=== PATIENT | male | born 1935 | race Caucasian/White ===

== ENCOUNTER 2021-08-26 00:40 | Emergency (ER) | payer MEDICARE, BC, SELFPAY ==
[2021-08-26 00:49] VITALS: BP 145/80; PULSE 110; TEMP 36.5; O2SAT 92
[2021-08-26 01:00] VITALS: BP 130/79; PULSE 107; RESP 18; O2SAT 92
[2021-08-26 02:00] VITALS: BP 124/70; PULSE 99; RESP 18; O2SAT 93
[2021-08-26 02:59] LABS: INR 3.67 (0.91-1.10); Prothrombin Time 36.7 Seconds
[2021-08-26 03:00] VITALS: BP 143/67; PULSE 97; RESP 18; O2SAT 94
--- NOTE | 2021-08-26 03:18 | ED.GENADULT ---
HPI - General Adult General Date Seen: 08/26/21 Chief complaint: Skin/Abscess/Foreign Body Stated complaint: Bleeding after tooth removal Time Seen by Provider: 08/26/21 00:54 History of Present Illness HPI narrative: 86-year-old male who had an abscessed lower central incisor removed today by an oral surgeon. He is on Coumadin chronically and did not INR last week was 2.4. Apparently they could not wait to remove the tooth and did not do anything to reverse his Coumadin prior to the procedure. He is now about 12 hours out from the extraction and is still bleeding from the site. This is have enough that is running down the back of his throat causing him to cough. He denies tooth pain. He is now on Augmentin as well. Related Data Allergies Allergy/AdvReac Type Severity Reaction Status Date / Time codeine Allergy Unknown Verified 08/26/21 00:[address] [facility] Medical History (Updated 08/26/21 @ 03:52 by Jaylan Alston MD) Asbestosis ASCVD (arteriosclerotic cardiovascular disease) Congestive heart failure COPD (chronic obstructive pulmonary disease) History of prostate cancer Hyperlipidemia Hypertension Insomnia Paroxysmal atrial fibrillation Pneumothorax Presbyacusis Surgical History (Updated 08/26/21 @ 03:52 by Jaylan Alston MD) History of appendectomy History of laparoscopic cholecystectomy Hx of CABG Social History (Updated 08/26/21 @ 03:53 by Jaylan Alston MD) Narrative: , six kids, retired, former smoker Smoking Status: Never smoker Do you use any of these nicotine containing products: None Second hand tobacco smoke exposure: No How often do you have a drink containing alcohol: never How often do you have six or more drinks on one occasion: Never AUDIT-C Alcohol total score: 0 Non-prescribed substance use: denies use service: No Exam Narrative: Exam Narrative: Vitals noted. He has a shirt on that is covered with blood. He is biting on gauze. HEENT: Conjunctiva clear. Tympanic membranes are pearly white bilaterally. Posterior pharynx is clear without erythema or exudate. He is missing a lower central incisor. There is active bleeding coming from the site of the extraction. No bony tenderness. Neck is supple without adenopathy, thyromegaly, carotid bruit. Lungs: Clear to auscultation in all [place]. No wheezes, rales, rhonchi. Heart: Regular rate and rhythm without murmur. Skin: No abnormalities noted of the exposed skin. Neurologic: Awake, alert, fully oriented. Neurologic exam is nonfocal. Const: Vital Signs, click to edit/add: Vital Signs - 24 hr 08/26/21 00:49 08/26/21 01:00 08/26/21 02:00 Temperature 97.7 F Pulse Rate [Left P ulse Oximeter] 110 H 107 H 99 Respiratory Rate 18 18 Blood Pressure [Le ft Upper Arm] 145/80 H 130/79 124/70 Pulse Oximetry 92 92 93 08/26/21 03:00 Temperature Pulse Rate [Left P ulse Oximeter] 97 Respiratory Rate 18 Blood Pressure [Le ft Upper Arm] 143/67 H Pulse Oximetry 94 Documenting provider has reviewed patient's vital signs: yes Course Course Hospital Course: Patient was seen and examined. I ordered hemoglobin and an INR. I initially tried to cauterize the bleeding area with silver nitrate. This helped some but did not resolve the issue. I then cut and applied some Gelfoam to the area in two layers. This did promote hemostasis. He was observed for over an hour and did not have any rebleeding. I did leave a voicemail for his oral surgeon. Reevaluation(s) Reevaluation #1: Hemoglobin is normal but his INR is 3.67. He is given vitamin K 5 mg IM. Vital Signs Vital signs: Initial Vital Signs Temperature 97.7 F 08/26/21 00:49 Temperature Source Temporal Artery Scan 08/26/21 00:49 Pulse Rate 110 H 08/26/21 00:49 Blood Pressure 145/80 H 08/26/21 00:49 Blood Pressure Mean 101 08/26/21 00:49 Blood Pressure Position Sitting 08/26/21 00:49 Pulse Oximetry 92 08/26/21 00:49 Oxygen Delivery Method 08/26/21 00:49 Vital Signs Temperature 97.7 F 08/26/21 00:49 Pulse Rate 110 H 08/26/21 00:49 Blood Pressure 145/80 H 08/26/21 00:49 Pulse Oximetry 92 08/26/21 00:49 Temperature 97.7 F 08/26/21 00:49 Pulse Rate 97 08/26/21 03:00 Respiratory Rate 18 08/26/21 03:00 Blood Pressure 143/67 H 08/26/21 03:00 Pulse Oximetry 94 08/26/21 03:00 Medical Decision Making Lab Data Labs: Lab Results 08/26/21 08/26/21 Range/Units 02:35 02:35 Hgb 16.0 (13.5-17.5) gm/dL INR 3.67 H (0.91-1.10) Discharge Plan Discharge Clinical Impression: Post-op bleeding Patient Disposition: Home, Self-Care Condition: Improved Additional Instructions: Try to leave the Gelfoam in place until you see your surgeon. Follow-up with the surgeon in the morning. Return to the emergency department for uncontrolled bleeding. You should have an INR checked in the clinic in 2-3 days. Follow Up/Referrals: Lee Broderick MD [Primary Care Provider] - Stand Alone Forms: [employer] Info Instructions
== END 2021-08-26 03:52 | disposition home or self-care (01) ==
LOC: ED 03:00
PROVIDERS: Emergency Provider Family Medicine; PCP Family Medicine
DX: Z53.8 Procedure and treatment not carried out for other reasons (principal)
CPT/HCPCS: 99281; 36415; 85018; 85610; 99282; J3430

== ENCOUNTER 2021-08-28 07:28 | Inpatient (IN) | payer MEDICARE, BC, SELFPAY ==
[2021-08-28] VITALS (25 sets, daily range): BP systolic 117–151; BP diastolic 50–88; PULSE 76–97; RESP 16–22; TEMP 35–36.9; O2SAT 90–99; BMI 200.9
--- NOTE | 2021-08-28 08:02 | ED_ITS ---
HPI - Dental/Oral General Time Seen by Provider: 08:02 Date Seen: 08/28/21 Chief complaint: Jaw Injury/Pain Stated complaint: Infection mouth/jaw Time Seen by Provider: 08/28/21 08:00 Source: patient, family (Here with ), RN notes reviewed and old records reviewed (Note from ED visit this week reviewed) Mode of arrival: ambulatory Limitations: no limitations History of Present Illness HPI Narrative: Patient is an 86-year-old male coming in with ongoing dental pain. He states his whole head hurts his jaw hurts. He had a dental extraction emergently on Tuesday and then had to come to the ER for the bleeding to stop. He had been on Coumadin long-term for history of a blood clot in his leg. He did end up getting vitamin can Tuesday. He states his INR was 1.6 yesterday. His notes that he has not been able to eat or drink due to the pain in his mouth. He feels like his tongue is swollen. It maybe lasts so already than when he came in per his report. They have not noted any fevers. He has been on metronidazole 500 mg 4 times a day and amoxicillin as well. He did get 2 bags of IV fluids from his primary care provider and then IV antibiotics and a L of IV fluids yesterday at his follow-up with the oral surgeon. Really seems if it is a pain complaint. He did have oxycodone for pain but did not like how it made him feel. He finally took 1 overnight due to the pain. His notes he has really only had 1 can of ensure other than the IV fluids. Onset (ago): day(s) Duration: constant Severity: severe Relieving factors: prescription analgesics Exacerbating factors: other (Eating, drinking) Associated symptoms: tongue swelling and pain with swallowing Related Data Allergies Allergy/AdvReac Type Severity Reaction Status Date / Time codeine Allergy Unknown Verified 08/26/21 00:52 Review of Systems Status of ROS: Reports: 10 or more systems reviewed and unremarkable except as noted in History and below [facility] Medical History Asbestosis ASCVD (arteriosclerotic cardiovascular disease) Congestive heart failure COPD (chronic obstructive pulmonary disease) History of prostate cancer Hyperlipidemia Hypertension Insomnia Paroxysmal atrial fibrillation Pneumothorax Presbyacusis Surgical History History of appendectomy History of laparoscopic cholecystectomy Hx of CABG Social History Narrative: , six kids, retired, former smoker Smoking Status: Never smoker Do you use any of these nicotine containing products: None Second hand tobacco smoke exposure: No How often do you have a drink containing alcohol: never How often do you have six or more drinks on one occasion: Never AUDIT-C Alcohol total score: 0 Non-prescribed substance use: denies use service: No Exam Const: Vital Signs, click to edit/add: Vital Signs - 24 hr 08/28/21 07:36 08/28/21 08:15 08/28/21 08:50 Temperature 98.3 F Pulse Rate [Pulse Oximeter] 92 76 Respiratory Rate 16 18 Respiratory Rate [ Neck] 18 Blood Pressure [Le ft Upper Arm] 128/76 150/77 H Pulse Oximetry 93 92 99 08/28/21 09:34 Temperature Pulse Rate [Pulse Oximeter] 85 Respiratory Rate 18 Respiratory Rate [ Neck] Blood Pressure [Le ft Upper Arm] 118/80 Pulse Oximetry 99 Documenting provider has reviewed patient's vital signs: yes Common normals: no apparent distress, average body habitus, oriented x3, no limitations, healthy appearing and alert General appearance: cooperative Nutritional appearance: overweight Orientation/consciousness: Yes awake HENMT: Common normals: normocephalic, head/scalp atraumatic, hearing grossly normal bilaterally, external ears normal, external nose normal and nasal mucous membranes and turbinates normal Head and scalp: normocephalic and atraumatic Nose: external nose normal and nasal mucous membranes and turbinates normal External ear: external ears normal Other: Has difficulty opening his mouth but submentally you can see extensive swelling without any evidence of any erythema. It feels like there is dense swelling in the underlying tissue under his job. He has pain with palpation there, there is no fluctuance, no heat. He can open his mouth but is limited due to this pain in the lower jaw. There is no active bleeding. The tongue actually has no swelling at all but underneath the tongue there is swelling that is present to the floor up by the anterior alveolar ridge. I think he is sent seen the swelling at the base of the jaw as tongue swelling. Posterior oropharynx is without any swelling. He definitely has pain with manipulation an opening of the jaw. Is not drooling, seems to be managing his secretions fine. Eye: Common normals: PERRL, EOMs intact bilaterally, conjunctivae normal and n o scleral icterus Conjunctiva: conjunctiva(e) normal Pupil: PERRL Neck & C-Spine: Common normals: full ROM, no lymphadenopathy, supple, no meningeal signs, no JVD and thyroid normal General: trachea midline, anterior neck swelling (Up under the jaw in the submental area) and tenderness Thyroid: thyroid normal Lymph: Lymphatic: no lymphadenopathy noted Resp: Common normals: normal respiratory effort, no retractions, no use of accessory muscles and clear to auscultation bilaterally Auscultation: clear to auscultation bilaterally Cardio: Common normals: no JVD, regular rate, regular rhythm, S1 normal heart sound, S2 normal heart sound, no gallops, no clicks and no murmurs Rate: regular rate Rhythm: regular rhythm Heart sounds: S1 normal and S2 normal GI: Common normals: Normal to inspection, nondistended, normoactive bowel sounds present, soft to palpation, non-tender, no hepatosplenomegaly and no masses Palpation: soft and no hepatosplenomegaly Extremity: Common normals: normal to inspection, full ROM, normal capillary refill, no joint enlargement, no clubbing, cyanosis or edema, no calf tenderness and no pedal edema Neuro: Common normals: oriented x3 Sensorium/orientation: awake and alert Meningeal signs: no meningeal signs Course Course Hospital Course: Will need to obtain soft tissue neck CT to better identify the process in his superior anterior submental area/neck. I suspect this might be generalized swelling and tissue changes from bleeding from being on Coumadin. It is possible it could be infectious in etiology and will get supporting lab work besides the imaging. There does not seem to be an airway issue at this time. We will give him some IV fluids and see what we can do to help the process of pain management. He may need hospitalization and supportive cares and tell there is better control of his pain and his ability for oral intake. He is stating his pain is still severe and will try a some low-dose IV fentanyl for him, give him some Zofran to cover for nausea from potential narcotic use. Have ordered oxygen if needed if he should become mildly hypoxic with the IV narcotic use. Will be doing a screening COVID as I do see that there was a significant chance he might need hospitalization. Consultations Consultation #1: Spoke with Dr. Bangura who is in the OR doing cases. Was able to catch in between OR cases. He did review the CT scan with me and felt the patient would be best served being transferred. Did review with me that this infection can become a extensive and be concerning for airway compromise. We will initiate IV antibiotics and dexamethasone as reviewed with Dr. Bangura. I have subsequently ordered 4 mg IV dexamethasone as this patient does have a history of CHF, the dexamethasone can be given in incremental doses. I have ordered Zosyn 3.375 mg IV. We will look to transfer the patient. Time: 10:35 Consultation #2: Dr. Bangura is here seeing the patient. We unfortunately are unable to transfer the patient anywhere within the [facility] to a higher level of care, nor to [place]. We have contacted [facility], [facility], [facility], [place], [facility]. We contacted [facility] in [place] and he is on a wait list at . Which will not be likely to be admitted within the next 24 hours. Thus, Dr. Bangura is essentially forced to take care of this case here and the patient is likely to remain intubated afterwards. Time: 11:27 Vital Signs Vital signs: Initial Vital Signs Temperature 98.3 F 08/28/21 07:36 Temperature Source Temporal Artery Scan 08/28/21 07:36 Pulse Rate 92 08/28/21 07:36 Respiratory Rate 16 08/28/21 07:36 Blood Pressure 128/76 08/28/21 07:36 Blood Pressure Mean 93 08/28/21 07:36 Pulse Oximetry 93 08/28/21 07:36 Oxygen Delivery Method 08/28/21 07:36 Vital Signs Temperature 98.3 F 08/28/21 07:36 Pulse Rate 92 08/28/21 07:36 Respiratory Rate 16 08/28/21 07:36 Blood Pressure 128/76 08/28/21 07:36 Pulse Oximetry 93 08/28/21 07:36 Temperature 98.3 F 08/28/21 07:36 Pulse Rate 85 08/28/21 09:34 Respiratory Rate 18 08/28/21 09:34 Blood Pressure 118/80 08/28/21 09:34 Pulse Oximetry 99 08/28/21 09:34 MDM - Dental/Oral Lab Data Attestation: I reviewed the patient's lab results. Labs: Lab Results 08/28/21 08/28/21 08/28/21 Range/Units 08:15 08:15 08:15 WBC 9.60 (4.50-11.00) K/uL RBC 4.26 L (4.30-5.90) m/uL Hgb 13.5 (13.5-17.5) gm/dL Hct 40.7 (37.0-53.0) % MCV 96 (80-100) fL MCH 32 (26-34) pg MCHC 33 (32-36) gm/dL RDW Coeff of Betty 12.7 (11.5-15.5) % Plt Count 173 (140-440) K/uL Neut % (Auto) 72.9 H (42.0-72.0) % Lymph % (Auto) 12.5 L (20-44) % Baca % (Auto) 13.3 H (0.0-11.0) % Eos % (Auto) 0.6 (0.0-7.0) % Baso % (Auto) 0.3 (0.0-3.0) % Neut # (Auto) 7.00 (1.7-7.0) K/uL Lymph # (Auto) 1.20 (0.90-2.90) K/uL Baca # (Auto) 1.30 H (0.00-0.90) K/UL Eos # (Auto) 0.06 (0.00-0.50) K/uL Baso # (Auto) 0.03 (0.00-0.30) K/uL Abs Immat Gran (auto) 0.04 (0.00-0.30) K/uL INR (0.91-1.10) Sodium 138 (135-149) mmol/L Potassium 3.3 L (3.6-5.1) mmol/L Chloride 103 (96-114) mmol/L Carbon Dioxide 32 (20-32) mmol/L BUN 25 (7-30) mg/dL Creatinine 0.9 (0.5-1.5) mg/dL Estimated Creat Clear 75.19 Estimated GFR 84 ml/min Glucose 115 (60-115) mg/dL Lactate 1.0 (0.5-1.9) mmol/L Calcium 8.1 L (8.4-10.6) mg/dL C-Reactive Protein 16.6 H (0.5-1.0) mg/dL SARS-CoV-2 (PCR) (Negative) 08/28/21 08/28/21 Range/Units 08:15 08:23 WBC (4.50-11.00) K/uL RBC (4.30-5.90) m/uL Hgb (13.5-17.5) gm/dL Hct (37.0-53.0) % MCV (80-100) fL MCH (26-34) pg MCHC (32-36) gm/dL RDW Coeff of Betty (11.5-15.5) % Plt Count (140-440) K/uL Neut % (Auto) (42.0-72.0) % Lymph % (Auto) (20-44) % Baca % (Auto) (0.0-11.0) % Eos % (Auto) (0.0-7.0) % Baso % (Auto) (0.0-3.0) % Neut # (Auto) (1.7-7.0) K/uL Lymph # (Auto) (0.90-2.90) K/uL Baca # (Auto) (0.00-0.90) K/UL Eos # (Auto) (0.00-0.50) K/uL Baso # (Auto) (0.00-0.30) K/uL Abs Immat Gran (auto) (0.00-0.30) K/uL INR 1.19 H (0.91-1.10) Sodium (135-149) mmol/L Potassium (3.6-5.1) mmol/L Chloride (96-114) mmol/L Carbon Dioxide (20-32) mmol/L BUN (7-30) mg/dL Creatinine (0.5-1.5) mg/dL Estimated Creat Clear Estimated GFR ml/min Glucose (60-115) mg/dL Lactate (0.5-1.9) mmol/L Calcium (8.4-10.6) mg/dL C-Reactive Protein (0.5-1.0) mg/dL SARS-CoV-2 (PCR) Negative SARS-CoV-2 (Negative) Imaging Data CT soft tissue neck with IV contrast: Attestation: I have reviewed the pertinent imaging results. Radiologist's impression: Patient: AUTUMN MILAN Facility:?[facility] Patient ID:?[id number] Site Patient ID:?[id number]. Site :?[id number] Study:?CT ST Neck 99cc ISOVUE 370-08/28/2021 9:43:01 AM Ordering Physician:Danny Olivarez Final Report: INDICATION: TOOTH EXTRACTION 1 WEEK AGO PAIN AND SWELLING TECHNIQUE: CT soft tissue of the neck was acquired with IV 99 cc Isovue 370 contrast. COMPARISON: None. FINDINGS: Dental amalgam streak artifact limits evaluation of adjacent structures. Rim enhancing fluid collection in the right floor of the mouth extending towards the midline, measuring 2.1 x 1.0 by 1.1 cm. (Series 3, image 40 and series 7, image 5) Skull base: Unremarkable. Pharynx/Larynx/Trachea: Epiglottis is normal. Airway is patent. Adjacent soft tissues are normal. Salivary glands: Unremarkable. Thyroid gland: Unremarkable. No significant nodules. Lymph nodes: No lymphadenopathy. Vessels: Moderate the scleroses of the carotid bifurcations and thoracic aorta. Bones: Moderate degenerative changes cervical spine most notably at C5-C6. Lung apices: Scarring at the right lung apex. Mild mucosal thickening in the right maxillary sinus. Visualized esophagus is patulous and partially fluid filled. IMPRESSION: : Rim enhancing fluid collection in the right floor of the mouth extending towards the midline, measuring 2.1 x 1.0 by 1.1 cm. Findings suspicious for an abscess. However, it should be noted that this is in the region and course of the right submandibular gland duct and this may relate to an infected/inflamed duct. Please note that all CT scans at this facility use dose modulation, iterative reconstruction, and/or weight-based dosing when appropriate to reduce radiation dose to as low as reasonably achievable. Dictated by Braden Castillo MD @ 08/28/2021 10:02:35 AM (Electronic Signature) Chest x-ray: Attestation: I have reviewed the pertinent imaging results. Radiologist's impression: Patient: AUTUMN MILAN Facility:?[facility] Patient ID:?[id number] Site Patient ID:?[id number]. Site :?[id number] Study:?XRay Chest -08/28/2021 11:56:43 AM Ordering Physician:Danny Olivarez Final Report: INDICATION: INFECTION S/P TOOTH EXTRACTION X 1 WEEK AGO, HX OF COPD, CHF TECHNIQUE: Chest 2 views. COMPARISON: October 26, 2020 FINDINGS: The lungs are hypoinflated. The heart is enlarged with bronchovascular crowding and interstitial thickening. No pleural effusion. No visualized pneumothorax. Unremarkable bones. IMPRESSION: Cardiac enlargement and bronchovascular crowding with interstitial thickening which may relate to low lung volumes or developing mild pulmonary edema. Dictated by Braden Castillo MD @ 08/28/2021 12:08:33 PM (Electronic Signature) ECG Data Attestation: I personally reviewed and interpreted this ECG as follows: (Sinus rhythm, 81 beats per minute, no acute abnormality.) ECG interpretation date: 08/28/21 ECG interpretation time: 11:56 Core Measures Measure exclusions: not indicated Critical Care Time Critical Care Time Critical Care Time: No Discharge Plan Discharge Patient Disposition: Admitted As Inpatient Condition: Unchanged
--- NOTE | 2021-08-28 08:22 | CRLHL7_ITS ---
For Patients: As a result of the Century Cures Act, medical imaging exams and procedure reports are released immediately into your electronic medical record. You may view this report before your referring provider. If you have questions, please contact your health care provider. INDICATION: TOOTH EXTRACTION 1 WEEK AGO PAIN AND SWELLING TECHNIQUE: CT soft tissue of the neck was acquired with IV 99 cc Isovue 370 contrast. COMPARISON: None. FINDINGS: Dental amalgam streak artifact limits evaluation of adjacent structures. Rim enhancing fluid collection in the right floor of the mouth extending towards the midline, measuring 2.1 x 1.0 by 1.1 cm. (Series 3, image 40 and series 7, image 5) Skull base: Unremarkable. Pharynx/Larynx/Trachea: Epiglottis is normal. Airway is patent. Adjacent soft tissues are normal. Salivary glands: Unremarkable. Thyroid gland: Unremarkable. No significant nodules. Lymph nodes: No lymphadenopathy. Vessels: Moderate the scleroses of the carotid bifurcations and thoracic aorta. Bones: Moderate degenerative changes cervical spine most notably at C5-C6. Lung apices: Scarring at the right lung apex. Mild mucosal thickening in the right maxillary sinus. Visualized esophagus is patulous and partially fluid filled. IMPRESSION: : Rim enhancing fluid collection in the right floor of the mouth extending towards the midline, measuring 2.1 x 1.0 by 1.1 cm. Findings suspicious for an abscess. However, it should be noted that this is in the region and course of the right submandibular gland duct and this may relate to an infected/inflamed duct. Please note that all CT scans at this facility use dose modulation, iterative reconstruction, and/or weight-based dosing when appropriate to reduce radiation dose to as low as reasonably achievable. Dictated by Braden Castillo MD @ 08/28/2021 10:02:35 AM (Electronically Signed)
[2021-08-28 08:37] LABS: Basophils Absolute Auto 0.03 K/uL (0.00-0.30); Basophils Percent Auto 0.3 % (0.0-3.0); Eosinophils Absolute Auto 0.06 K/uL (0.00-0.50); Eosinophils Percent Auto 0.6 % (0.0-7.0); Hematocrit 40.7 % (37.0-53.0); Hemoglobin* 13.5 gm/dL (13.5-17.5); Immature Granulocytes Abs Auto 0.04 K/uL (0.00-0.30); Lymphocytes Percent Auto 12.5 % (20-44); Mean Corpuscular HGB Conc 33 gm/dL (32-36); Mean Corpuscular Hemoglobin 32 pg (26-34); Mean Corpuscular Volume 96 fL (80-100); Monocytes Percent Auto 13.3 % (0.0-11.0); Neutrophils Percent Auto 72.9 % (42.0-72.0); Platelet Count* 173 K/uL (140-440); RDW Coefficient of Variation % 12.7 % (11.5-15.5); Red Blood Count 4.26 m/uL (4.30-5.90)
[2021-08-28 08:39] LABS: Slide Review Reflex No
[2021-08-28] MEDS: 0.9 % SODIUM CHLORIDE 500 ML 500 ML IV ×2 (08:40→09:35)
[2021-08-28 08:49] LABS: Chloride* 103 mmol/L (96-114)
[2021-08-28] MEDS: ONDANSETRON 2 MG/ML inj 4 MG IVP (08:49)
[2021-08-28 08:50] LABS: Potassium* 3.3 mmol/L (3.6-5.1); Sodium* 138 mmol/L (135-149)
[2021-08-28 08:51] LABS: INR 1.19 (0.91-1.10); Prothrombin Time 15.5 Seconds
[2021-08-28] MEDS: fentaNYL 100 MCG/2 ML inj 25 MCG IVP ×2 (08:51→11:11)
[2021-08-28 08:52] LABS: Creatinine* 0.9 mg/dL (0.5-1.5); Est. Creatinine Clearance* 75.19; Estimated Glomerular Filt Rate 84 ml/min
[2021-08-28 08:53] LABS: Blood Urea Nitrogen* 25 mg/dL (7-30); Carbon Dioxide* 32 mmol/L (20-32)
[2021-08-28 08:54] LABS: Calcium* 8.1 mg/dL (8.4-10.6); Glucose* 115 mg/dL (60-115)
[2021-08-28 09:07] LABS: C Reactive Protein* 16.6 mg/dL (0.5-1.0)
--- NOTE | 2021-08-28 09:31 | PC.NURSE ---
back from imaging, fluids infusing
[2021-08-28 09:48] LABS: SARS PCR* Negative SARS-CoV-2 (Negative)
--- NOTE | 2021-08-28 10:04 | PC.NURSE ---
pt up to bathroom with standby assist, voided, noted dark urine, fluids infusing
[2021-08-28] MEDS: dexAMETHasone 4 MG/ML VIAL IV (11:13)
[2021-08-28] MEDS: PIPERACILLIN/TAZOBACTAM 3.375 GM in 0.9 % SODIUM CHLORIDE Mini-bag 100 ML IVPB ×2 (11:17→18:55)
--- NOTE | 2021-08-28 11:26 | CRLHL7_ITS ---
For Patients: As a result of the Cures Act, medical imaging exams and procedure reports are released immediately into your electronic medical record. You may view this report before your referring provider. If you have questions, please contact your health care provider. INDICATION: INFECTION S/P TOOTH EXTRACTION X 1 WEEK AGO, HX OF COPD, CHF TECHNIQUE: Chest 2 views. COMPARISON: October 26, 2020 FINDINGS: The lungs are hypoinflated. The heart is enlarged with bronchovascular crowding and interstitial thickening. No pleural effusion. No visualized pneumothorax. Unremarkable bones. IMPRESSION: Cardiac enlargement and bronchovascular crowding with interstitial thickening which may relate to low lung volumes or developing mild pulmonary edema. Dictated by Braden Castillo MD @ 08/28/2021 12:08:33 PM (Electronically Signed)
--- NOTE | 2021-08-28 12:05 | W.ANESCHARGE ---
Anesthesia Charges Start Date/Time Anesthesia Start Date: 08/28/21 Anesthesia Start Time: 11:33 Stop Date/Time Anesthesia Stop Date: 08/28/21 Anesthesia Stop Time: 12:05 Summary Emergency: No Extremes of Age: Over 71-CPT 77161
--- NOTE | 2021-08-28 13:10 | P.ENTCN_ITS ---
HPI- ENT Consult Date of Consult Consult date: 09/01/21 Requesting Physician: Other Primary Care Provider: Lee Broderick MD Consult Narrative Reason for consult: Submental abscess Narrative: Peña Reddy is a 86 year old male Review of Systems Narrative: Reviewed Dr. Geena escobar note pertinent for me would be poor dentition, history of cardiac stent, history of lung surgery x2. PFSH PFSH Medical History (Updated 08/31/21 @ 10:52 by Malik Hernandez MD) Anticoagulant long-term use Asbestosis ASCVD (arteriosclerotic cardiovascular disease) Congestive heart failure COPD (chronic obstructive pulmonary disease) History of prostate cancer Hyperlipidemia Hypertension Insomnia Neck abscess Paroxysmal atrial fibrillation Pneumothorax Presbyacusis Sublingual abscess Trouble swallowing Surgical History History of appendectomy History of laparoscopic cholecystectomy Hx of CABG Social History Narrative: , six kids, retired, former smoker Smoking Status: Never smoker Do you use any of these nicotine containing products: None Second hand tobacco smoke exposure: No How often do you have a drink containing alcohol: never How often do you have six or more drinks on one occasion: Never AUDIT-C Alcohol total score: 0 Non-prescribed substance use: denies use service: No Meds Home Medications and Allergies Home Medications Medication Instructions Recorded Confirmed Type amoxicillin 500 mg capsule 500 mg PO QID 08/28/21 08/28/21 History atorvastatin 40 mg tablet 40 mg PO HS 08/28/21 08/28/21 History fluticasone 113 mcg-salmeterol 14 1 inh INHALATION BID 08/28/21 08/28/21 History mcg/actuation breath activated powdr hydrocodone 5 mg-acetaminophen 325 1 tab PO Q6H PRN 08/28/21 08/28/21 History mg tablet lisinopril 20 mg tablet 20 mg PO DAILY 08/28/21 08/28/21 History metoprolol succinate 50 mg 75 mg PO DAILY 08/28/21 08/28/21 History tablet,extended release 24 hr metronidazole 500 mg tablet 500 mg PO QID 08/28/21 08/28/21 History mirtazapine 7.5 mg tablet 7.5 mg PO HS 08/28/21 08/28/21 History omeprazole 20 mg capsule,delayed 20 mg PO DAILY 08/28/21 08/28/21 History release tamsulosin 0.4 mg capsule 0.8 mg PO DAILY 08/28/21 08/28/21 History triamterene 37.5 1 cap PO DAILY 08/28/21 08/28/21 History mg-hydrochlorothiazide 25 mg capsule warfarin 2 mg tablet 4 - 6 mg PO DAILY 08/28/21 08/28/21 History Allergies Allergy/AdvReac Type Severity Reaction Status Date / Time codeine Allergy Unknown Verified 08/26/21 00:52 Exam Narrative: Exam Narrative: General skin neuro respiratory gait peripheral vascular vocal quality respirator y effort skin of head and neck negative ear external canal TM negative nose mucosa septum turbinates negative oral cavity oropharynx hypopharynx larynx neck parotid thyroid all negative with the exception of: Submental swelling, floor of mouth swelling with apparent hematoma in the submandibular duct orifices. No fluctuant abscess in mouth. Extremely poor dentition. Const: Vital Signs, click to edit/add: Vital Signs - 24 hr 08/28/21 07:36 08/28/21 08:15 08/28/21 08:50 Temperature 98.3 F Pulse Rate [Pulse Oximeter] 92 76 Respiratory Rate 16 18 Respiratory Rate [ Neck] 18 Blood Pressure [Le ft Upper Arm] 128/76 150/77 H Pulse Oximetry 93 92 99 08/28/21 09:34 Temperature Pulse Rate [Pulse Oximeter] 85 Respiratory Rate 18 Respiratory Rate [ Neck] Blood Pressure [Le ft Upper Arm] 118/80 Pulse Oximetry 99 ENT-CN: Result Labs Labs: Short CBC 08/28/21 Range/Units 08:15 WBC 9.60 (4.50-11.00) K/uL Hgb 13.5 (13.5-17.5) gm/dL Hct 40.7 (37.0-53.0) % Plt Count 173 (140-440) K/uL BMP 08/28/21 08:15 Sodium 138 Potassium 3.3 L Chloride 103 Carbon Dioxide 32 BUN 25 Creatinine 0.9 Glucose 115 Calcium 8.1 L Assessment and Plan Assessment and plan (1) Neck abscess: Status: Acute (2) Anticoagulant long-term use: Status: Acute (3) COPD (chronic obstructive pulmonary disease): Status: Acute (4) Paroxysmal atrial fibrillation: Status: Acute (5) ASCVD (arteriosclerotic cardiovascular disease): Status: Acute (6) Sublingual abscess: Problem comment: Status post I&D Status: Acute (7) Hypoxia: Status: Acute (8) Electrolyte and fluid disorder: Status: Acute (9) Trouble swallowing: Status: Acute (10) Hypertension: Status: Acute (11) Debility: Status: Acute (12) Malnutrition: Status: Acute
--- NOTE | 2021-08-28 13:15 | W.PM.ENTCN ---
HPI- ENT Consult Date of Consult Consult date: 08/28/21 Primary Care Provider: Lee Broderick MD Consult Narrative Narrative: Peña Reddy is a 86 year old male [facility] Medical History (Updated 08/28/21 @ 13:16 by Rowdy Bangura MD) Asbestosis ASCVD (arteriosclerotic cardiovascular disease) Congestive heart failure COPD (chronic obstructive pulmonary disease) History of prostate cancer Hyperlipidemia Hypertension Insomnia Neck abscess Paroxysmal atrial fibrillation Pneumothorax Presbyacusis Surgical History History of appendectomy History of laparoscopic cholecystectomy Hx of CABG Social History Narrative: , six kids, retired, former smoker Smoking Status: Never smoker Do you use any of these nicotine containing products: None Second hand tobacco smoke exposure: No How often do you have a drink containing alcohol: never How often do you have six or more drinks on one occasion: Never AUDIT-C Alcohol total score: 0 Non-prescribed substance use: denies use service: No Meds Home Medications and Allergies Allergies Allergy/AdvReac Type Severity Reaction Status Date / Time codeine Allergy Unknown Verified 08/26/21 00:52 Exam Const: Vital Signs, click to edit/add: Vital Signs - 24 hr 08/28/21 07:36 08/28/21 08:15 08/28/21 08:50 Temperature 98.3 F Pulse Rate [Pulse Oximeter] 92 76 Respiratory Rate 16 18 Respiratory Rate [ Neck] 18 Blood Pressure [Le ft Upper Arm] 128/76 150/77 H Pulse Oximetry 93 92 99 08/28/21 09:34 Temperature Pulse Rate [Pulse Oximeter] 85 Respiratory Rate 18 Respiratory Rate [ Neck] Blood Pressure [Le ft Upper Arm] 118/80 Pulse Oximetry 99 ENT-CN: Result Labs Labs: Short CBC 08/28/21 Range/Units 08:15 WBC 9.60 (4.50-11.00) K/uL Hgb 13.5 (13.5-17.5) gm/dL Hct 40.7 (37.0-53.0) % Plt Count 173 (140-440) K/uL BMP 08/28/21 08:15 Sodium 138 Potassium 3.3 L Chloride 103 Carbon Dioxide 32 BUN 25 Creatinine 0.9 Glucose 115 Calcium 8.1 L Assessment and Plan Assessment and plan (1) Neck abscess: Status: Acute Plan CT scan reviewed including images. Small right greater than left submental abscess. Impression submental abscess left greater than right with tenderness extending down to just above the larynx on both sides. Recommend incision and drainage risks including anesthesia bleeding failure to achieve desired results etc. as well as scarring were discussed with him and his . He understands and wishes to proceed Note to ER physician's note note was reviewed which includes past medical history family history social history review of systems
--- NOTE | 2021-08-28 13:16 | P.ENTPROC_ITS ---
Procedure Note Date of procedure: 08/28/21 Procedure: Preoperative diagnosis submental abscess following dental extraction Postop diagnosis same Findings moderately extensive abscess in majority of the submental space both right and left-sided Blood loss less than 20 mL Complications none Drains 2 [place] drain secured to the scan The patient was intubated without difficulty and then prepped and draped in the usual fashion. I 1st examined the floor mouth and there was a small cavity on the right just posterior to the floor of mouth gingival junction this was opened with a 15 blade puncture. There was minimal to no fluid there. After regarding attention was returned to the external neck. The skin incision was marked in the submental area horizontally injected with 1% lidocaine 1- [id number] adrenaline, then the skin was incised with a Doyline blade. Electrocautery was used to cauterize any bleeding vessels. The strap muscles were divided retracted laterally. This point was easily able to enter the submental space just with fingertip dissection. There was an obvious abscess cavity which was filled with serosanguineous fluid the abscess cavity appeared to extend to on both sides of the submental space approximately 8 cm inward on each side. All adhesions were broken up digitally. The wound was copiously irrigated with normal saline. Two [place] drains were secured to the skin and placed in the deepest portion of the cavity. An external dressing consisting of fluffs and Kerlix wrap was placed. The patient tolerated procedure well and was taken to recovery in satisfactory condition after extubation. Surgeon: Rowdy Bangura MD
--- NOTE | 2021-08-28 13:23 | W.ANESCHARGE ---
Anesthesia Charges Start Date/Time Anesthesia Start Date: 08/28/21 Anesthesia Start Time: 12:35 Stop Date/Time Anesthesia Stop Date: 08/28/21 Anesthesia Stop Time: 13:23 Summary Emergency: Yes Extremes of Age: Over 70-CPT 85188
[2021-08-28] MEDS: LACTATED RINGERS 1000 ML 1,000 ML 35 ML IV (13:30)
--- NOTE | 2021-08-28 13:38 | SUR.OPER ---
PATIENT QUESTIONS ANSWERED SATISFACTORILY PREOPERATIVELY.? PATIENT BROUGHT TO OR RM #4 BY WHEELCHAIR.? Patient positioned supine on OR #4 bed. ?Perioperative team tucked arms bilaterally at patient side with drawsheet in a neutral position. ?Final approval of positioning by surgeon.
--- NOTE | 2021-08-28 13:43 | SUR.OPER ---
IRRIGATED INFECTED INCISION ON THE NECK WITH NS POUR WITH 100cc BY Millie AT13:02.
--- NOTE | 2021-08-28 14:00 | W.ANESCHARGE ---
Anesthesia Charges Start Date/Time Anesthesia Start Date: 08/28/21 Anesthesia Start Time: 12:35 Stop Date/Time Anesthesia Stop Date: 08/28/21 Anesthesia Stop Time: 13:23 Summary Emergency: Yes Extremes of Age: Over 71-CPT 58866
--- NOTE | 2021-08-28 14:46 | P.IMHP_ITS ---
Hospitalist- H&P: HPI History of Present Illness Time Seen by Provider: 14:47 Date Seen: 08/28/21 Chief complaint: Infection mouth/jaw Narrative: Peña Reddy is a 86 year old male presented to the emergency room today for persistent dental pain and difficulty with po intake. He had an abscessed tooth pulled on 08/25, has had persistent pain and edema since procedure. Secondary to pain, has been unable to eat well. He presented to the ED today with the following findings: - INR 1.19 (has been holding Warfarin since 08/26, received Vitamin K x1 on 08/26) - CT of neck exhibited a 2.1 x1.1cm abscess on floor of the mouth (R side) Patient had surgery with Dr. Bangura of ENT; reviewed the case with Dr. Bangura of postoperatively. There were no operative or anesthetic complications during the I&D and drain placement. Patient's medical history includes recurrent spontaneous pneumothorax s/p bilateral pleurodesis in 1984 and 2002. He has known restrictive lung disease and follows with Dr. Osullivan at the [facility]. He also has a history of prostate cancer, CAD s/p JANEY to RCA in 2019, atrial fibrillation, remote history of DVT, anticoagulated on Warfarin. Other past medical and surgical history noted below. Lives independently with locally. 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 Review of Systems Status of ROS: Reports: 10 or more systems reviewed and unremarkable except as noted in History and below Narrative: Specifically denies chest pain or dyspnea. Worried about nutritional status, and these not been able to eat or drink much over the past few days. PFSH [facility] Medical History Anticoagulant long-term use Asbestosis ASCVD (arteriosclerotic cardiovascular disease) Congestive heart failure COPD (chronic obstructive pulmonary disease) History of prostate cancer Hyperlipidemia Hypertension Insomnia Neck abscess Paroxysmal atrial fibrillation Pneumothorax Presbyacusis Surgical History History of appendectomy History of laparoscopic cholecystectomy Hx of CABG Social History Narrative: , six kids, retired, former smoker Smoking Status: Never smoker Do you use any of these nicotine containing products: None Second hand tobacco smoke exposure: No How often do you have a drink containing alcohol: never How often do you have six or more drinks on one occasion: Never AUDIT-C Alcohol total score: 0 Non-prescribed substance use: denies use service: No Active Problems Anticoagulant long-term use (Acute) Z79.01 Neck abscess (Acute) L02.11 COPD (chronic obstructive pulmonary disease) (Acute) J44.9 Asbestosis (Acute) J61 History of prostate cancer (Acute) Z85.46 Insomnia (Acute) G47.00 Paroxysmal atrial fibrillation (Acute) I48.0 Congestive heart failure (Acute) I50.9 Hyperlipidemia (Acute) E78.5 Presbyacusis (Acute) H91.10 Hypertension (Acute) I10 ASCVD (arteriosclerotic cardiovascular disease) (Acute) I25.10 Post-op bleeding (Acute) Medical History Anticoagulant long-term use Asbestosis ASCVD (arteriosclerotic cardiovascular disease) Congestive heart failure COPD (chronic obstructive pulmonary disease) History of prostate cancer Hyperlipidemia Hypertension Insomnia Neck abscess Paroxysmal atrial fibrillation Pneumothorax Presbyacusis Surgical History History of appendectomy History of laparoscopic cholecystectomy Hx of CABG Social History Narrative: , six kids, retired, former smoker Smoking Status: Never smoker Do you use any of these nicotine containing products: None Second hand tobacco smoke exposure: No How often do you have a drink containing alcohol: never How often do you have six or more drinks on one occasion: Never AUDIT-C Alcohol total score: 0 Non-prescribed substance use: denies use service: No Active Problems Anticoagulant long-term use (Acute) Z79.01 Neck abscess (Acute) L02.11 COPD (chronic obstructive pulmonary disease) (Acute) J44.9 Asbestosis (Acute) J61 History of prostate cancer (Acute) Z85.46 Insomnia (Acute) G47.00 Paroxysmal atrial fibrillation (Acute) I48.0 Congestive heart failure (Acute) I50.9 Hyperlipidemia (Acute) E78.5 Presbyacusis (Acute) H91.10 Hypertension (Acute) I10 ASCVD (arteriosclerotic cardiovascular disease) (Acute) I25.10 Post-op bleeding (Acute) Medical History Anticoagulant long-term use Asbestosis ASCVD (arteriosclerotic cardiovascular disease) Congestive heart failure COPD (chronic obstructive pulmonary disease) History of prostate cancer Hyperlipidemia Hypertension Insomnia Neck abscess Paroxysmal atrial fibrillation Pneumothorax Presbyacusis Surgical History History of appendectomy History of laparoscopic cholecystectomy Hx of CABG Social History Narrative: , six kids, retired, former smoker Smoking Status: Never smoker Do you use any of these nicotine containing products: None Second hand tobacco smoke exposure: No How often do you have a drink containing alcohol: never How often do you have six or more drinks on one occasion: Never AUDIT-C Alcohol total score: 0 Non-prescribed substance use: denies use service: No Meds Home Medications and Allergies Home Medications Medication Instructions Recorded Confirmed Type amoxicillin 500 mg capsule 500 mg PO QID 08/28/21 08/28/21 History atorvastatin 40 mg tablet 40 mg PO HS 08/28/21 08/28/21 History fluticasone 113 mcg-salmeterol 14 1 inh INHALATION BID 08/28/21 08/28/21 History mcg/actuation breath activated powdr hydrocodone 5 mg-acetaminophen 325 1 tab PO Q6H PRN 08/28/21 08/28/21 History mg tablet lisinopril 20 mg tablet 20 mg PO DAILY 08/28/21 08/28/21 History metoprolol succinate 50 mg 75 mg PO DAILY 08/28/21 08/28/21 History tablet,extended release 24 hr metronidazole 500 mg tablet 500 mg PO QID 08/28/21 08/28/21 History mirtazapine 7.5 mg tablet 7.5 mg PO HS 08/28/21 08/28/21 History omeprazole 20 mg capsule,delayed 20 mg PO DAILY 08/28/21 08/28/21 History release tamsulosin 0.4 mg capsule 0.8 mg PO DAILY 08/28/21 08/28/21 History triamterene 37.5 1 cap PO DAILY 08/28/21 08/28/21 History mg-hydrochlorothiazide 25 mg capsule warfarin 2 mg tablet 4 - 6 mg PO DAILY 08/28/21 08/28/21 History Allergies Allergy/AdvReac Type Severity Reaction Status Date / Time codeine Allergy Unknown Verified 08/26/21 00:52 Exam Narrative: Exam Narrative: GEN: Alert and oriented, laying comfortably in bed answering questions appropriately HEENT: EOMIs bilaterally, no scleral icterus. + dental caries noted on oral exam, no trismus noted. Neck is wrapped with gauze and skin is not formally examined CV: RRR (not in atrial fibrillation during my exam). No concerning murmurs, rubs, or gallops R: LCTA bilaterally without concerning wheezing, rales, or rhonchi. Air movement is adequate Ext: wwp, no concerning edema, wearing SCDs Skin: No concerning skin lesions or rashes on exposed skin Neuro: Nonfocal, no resting tremor Psych: Appropriate Const: Vital Signs, click to edit/add: Vital Signs - 24 hr 08/28/21 07:36 08/28/21 08:15 08/28/21 08:50 Temperature 98.3 F Pulse Rate Pulse Rate [Pulse Oximeter] 92 76 Respiratory Rate 16 18 Respiratory Rate [ Neck] 18 Blood Pressure Blood Pressure [Le ft Upper Arm] 128/76 150/77 H Pulse Oximetry 93 92 99 08/28/21 09:34 08/28/21 13:19 08/28/21 13:25 Temperature 97.8 F Pulse Rate 95 91 Pulse Rate [Pulse Oximeter] 85 Respiratory Rate 18 20 20 Respiratory Rate [ Neck] Blood Pressure 143/67 H 140/60 H Blood Pressure [Le ft Upper Arm] 118/80 Pulse Oximetry 99 95 08/28/21 13:30 08/28/21 13:35 08/28/21 13:40 Temperature Pulse Rate 86 88 83 Pulse Rate [Pulse Oximeter] Respiratory Rate 20 20 20 Respiratory Rate [ Neck] Blood Pressure 126/83 122/62 128/56 L Blood Pressure [Le ft Upper Arm] Pulse Oximetry 95 95 94 08/28/21 13:45 Temperature 98 F Pulse Rate 85 Pulse Rate [Pulse Oximeter] Respiratory Rate 20 Respiratory Rate [ Neck] Blood Pressure 124/50 L Blood Pressure [Le ft Upper Arm] Pulse Oximetry 90 Hospitalist - H&P: Result Labs Labs: Short CBC 08/28/21 Range/Units 08:15 WBC 9.60 (4.50-11.00) K/uL Hgb 13.5 (13.5-17.5) gm/dL Hct 40.7 (37.0-53.0) % Plt Count 173 (140-440) K/uL BMP 08/28/21 08:15 Sodium 138 Potassium 3.3 L Chloride 103 Carbon Dioxide 32 BUN 25 Creatinine 0.9 Glucose 115 Calcium 8.1 L Assessment and Plan Assessment and plan (1) Neck abscess: Status: Acute (2) Paroxysmal atrial fibrillation: Status: Acute (3) Hypertension: Status: Acute (4) Anticoagulant long-term use: Status: Acute Plan Patient will be monitored overnight for any signs or symptoms of postoperative bleeding, trismus, recurrent abscess. Continue IV antibiotics, discharge home on Augmentin and Flagyl upon discharge (patient was on Amoxicillin and Flagyl prior to admission). Follow-up with Dr. Bangura in in the office next week on Tuesday. Hold home anti-hypertensives given decreased po intake and lower postoperative BPs. Encourage po intake, supplements as needed. Continue to hold Coumadin at this time (plan to restart Tuesday, pending clinical course). SCDs for prophylaxis. Patient requests DNR/DNI status in the case of cardiorespiratory arrest; he would be amenable to intubation for acute airway compromise 2/2 abscess, or need for repeat surgery.
[2021-08-28] MEDS: ALBUTEROL SULFATE 2.5 MG/3 ML VIAL.NEB NEB ×2 (18:55→20:31)
--- NOTE | 2021-08-28 19:35 | PC.NURSE ---
shift note: pt to room via bed @ 1400. Pt using yanker to suction excessive saliva. LS clr. tongue is swollen. pt rating thraot pain 2/10. Pt tolerating minimal amounts of ice chips. Iv patent. pt up 2/assist to bathroom to void. pt voided x2. drsg to throat c/d/i. Iv per post op protocol stable.
[2021-08-28] MEDS: POTASSIUM CHLORIDE 10 MEQ/100 ML PIGGYBACK 100 MEQ IVPB ×2 (19:54→21:19)
[2021-08-28] MEDS: BUDESONIDE 0.5 MG/2ML NEB NEB (20:31)
[2021-08-28] MEDS: MORPHINE 2 MG/ML inj IVP (21:23)
[2021-08-29] VITALS (15 sets, daily range): BP systolic 110–155; BP diastolic 63–97; PULSE 70–96; RESP 16–22; TEMP 36–36.7; O2SAT 91–98
[2021-08-29] MEDS: 0.9 % SODIUM CHLORIDE 1000 ml 1,000 ML 75 ML IV ×2 (00:03→14:20)
[2021-08-29] MEDS: PIPERACILLIN/TAZOBACTAM 3.375 GM in 0.9 % SODIUM CHLORIDE Mini-bag 100 ML IVPB ×5 (00:03→23:42)
[2021-08-29] MEDS: MORPHINE 2 MG/ML inj IVP ×2 (02:43→17:11)
--- NOTE | 2021-08-29 05:57 | PC.NURSE ---
shift note -: pt is A&O. pleasant and cooperative. Pt reports he has difficulty swallowing his secretions and has attempted to drink water throughout the night but states he is unable, pt continues to use the Yankauer to suction his secretions. Otherwise, rates pain 2-3/10 and states his pain is much improved since prior to sx, PRN Morphine given x2. Pt was initially on 2L O2 PNC, decreased to 1L O2 PNC with oxygen saturations in the low to mid 90's. Reports SOB with exertion but states that is his baseline. Pt has a productive cough. Dressing to neck has a small amount of bloody drainage. Pt up to BR SBA with walker, tolerating well.
[2021-08-29 07:49] LABS: Basophils Percent Auto 0.1 % (0.0-3.0); Hematocrit 40.6 % (37.0-53.0); Hemoglobin* 13.5 gm/dL (13.5-17.5); Immature Granulocytes Abs Auto 0.05 K/uL (0.00-0.30); Lymphocytes Percent Auto 6.9 % (20-44); Mean Corpuscular HGB Conc 33 gm/dL (32-36); Mean Corpuscular Hemoglobin 32 pg (26-34); Mean Corpuscular Volume 96 fL (80-100); Monocytes Percent Auto 9.4 % (0.0-11.0); Neutrophils Percent Auto 83.2 % (42.0-72.0); Platelet Count* 182 K/uL (140-440); RDW Coefficient of Variation % 12.5 % (11.5-15.5); Red Blood Count 4.25 m/uL (4.30-5.90); White Blood Count* 12.47 K/uL (4.50-11.00)
[2021-08-29 07:51] LABS: Albumin* 3.2 g/dL (3.3-5.0)
[2021-08-29 07:52] LABS: Chloride* 107 mmol/L (96-114); Potassium* 3.9 mmol/L (3.6-5.1); Slide Review Reflex No; Sodium* 141 mmol/L (135-149)
[2021-08-29 07:54] LABS: Aspartate Amino Transferase* 32 U/L (12-35); Bilirubin Total* 1.1 mg/dL (0.1-1.5); Carbon Dioxide* 33 mmol/L (20-32); Creatinine* 0.8 mg/dL (0.5-1.5); Est. Creatinine Clearance* 77.79; Estimated Glomerular Filt Rate 87 ml/min
[2021-08-29 07:55] LABS: Alanine Aminotransferase* 24 U/L (4-50); Alkaline Phosphatase* 74 U/L (40-150); Blood Urea Nitrogen* 20 mg/dL (7-30); Calcium* 7.8 mg/dL (8.4-10.6); Glucose* 111 mg/dL (60-115)
--- NOTE | 2021-08-29 08:10 | P.IMPN_ITS ---
Progress Note: A&P Assessment and plan (1) Neck abscess: Status: Acute Assessment and Plan: Following along with ENT. Continues on IV Zosyn and IV fluids. Likely will need 24 more hours observation as his swelling prevents meaningful p.o. intake and or swallowing without difficulty. We will continue to manage his chronic health conditions. He currently is not on anticoagulation for his chronic AFib. However given his acute abscess and drainage, in discussion with ENT we will start him on lovenox. Hemoglobin is stable. Electrolytes have improved. (2) Anticoagulant long-term use: Status: Acute Assessment and Plan: Previously on warfarin for chronic AFib. cover with lovenox today. (3) COPD (chronic obstructive pulmonary disease): Status: Acute Assessment and Plan: Not on oxygen. Feels about his baseline. continue nebs (4) Paroxysmal atrial fibrillation: Status: Acute Assessment and Plan: Rate controlled currently. As he is not able to take his p.o. medications, we will manage his rate control and hypertension with IV Lopressor. I have ordered 5 mg q.6 scheduled but with hold parameters of a systolic blood pressure less than 120 or heart rate less than 60. (5) ASCVD (arteriosclerotic cardiovascular disease): Status: Acute Assessment and Plan: Currently well managed. No evidence of acute coronary syndrome or demand ischemia. Time Spent With Patient Total time spent: Twenty-five Subjective Date Seen: 08/29/21 Interval history: Daily Progress Note - Hospital Medicine Day #: 2 Postop day 1 Antibiotic day 2 Zosyn Continues on LR at 100 mL an hour Status post potassium replacement CC: Still having trouble swallowing, comfortable. Postop day 1 I/D submental abscess OVERNIGHT UPDATES FROM STAFF & MED, LAB, IMAGING UPDATES Patient required IV narcotics overnight. He is still using the Yankauer suction for all secretions, saliva etc. patient is refusing p.o. intake, remains on IV antibiotics and IV fluids. micro reviewed, gram + cocci and gram - rods. awaiting c/s. White count is up to 12.5 from 9.6 on admission yesterday (got Hemoglobin is stable INR initially was 3.6, today is 1.2 Potassium has improved, back to normal. Kidney function and electrolytes are reassuring and normal this morning. CRP 16.6 yesterday, has not been recheck today. Review of Systems: See subjective Cardiac: No new chest pain/pressure/palpitations. Respiratory: no new dyspnea. Reports a baseline dyspnea. Not worse. GI: No abdominal bloating Objective: Vitals: Patient has been afebrile since admission Blood pressures are running 120s to 150s over 70s and 80s Pulse is in the 80s and 90s Respiratory rate is normal Pulse ox is normal on room air Lungs: Clear. Cardiac: S1S2. HEENT: Dressing is taken down and area is examined. Moderate lymphadenopathy and or firmness noted along bilateral jaw line. Right greater than left. Incision looks healthy and free of purulence. There has been moderate drainage from the [place] drains x2 overnight. Serosanguineous. Patient can open his mouth less than 2 cm and cannot extend his tongue. Disposition/Potential discharge - Likely to return to previous living situation. Total time is 35 minutes with greater than 50% spent in counseling and coor dination of care. Exam Const: Vital Signs, click to edit/add: Vital Signs - 24 hr 08/28/21 08:15 08/28/21 08:50 08/28/21 09:34 Temperature Pulse Rate Pulse Rate [Left P ulse Oximeter] Pulse Rate [Pulse Oximeter] 76 85 Respiratory Rate 18 18 Respiratory Rate [ Neck] 18 Blood Pressure Blood Pressure [Le ft Upper Arm] 150/77 H 118/80 Blood Pressure [Ri ght Arm] Pulse Oximetry 92 99 99 08/28/21 11:15 08/28/21 13:19 08/28/21 13:25 Temperature 97.8 F Pulse Rate 95 91 Pulse Rate [Left P ulse Oximeter] Pulse Rate [Pulse Oximeter] 83 Respiratory Rate 18 20 20 Respiratory Rate [ Neck] Blood Pressure 143/67 H 140/60 H Blood Pressure [Le ft Upper Arm] 145/65 H Blood Pressure [Ri ght Arm] Pulse Oximetry 97 95 08/28/21 13:30 08/28/21 13:35 08/28/21 13:40 Temperature Pulse Rate 86 88 83 Pulse Rate [Left P ulse Oximeter] Pulse Rate [Pulse Oximeter] Respiratory Rate 20 20 20 Respiratory Rate [ Neck] Blood Pressure 126/83 122/62 128/56 L Blood Pressure [Le ft Upper Arm] Blood Pressure [Ri ght Arm] Pulse Oximetry 95 95 94 08/28/21 13:45 08/28/21 14:00 08/28/21 14:15 Temperature 98 F 96 F L 95 F L Pulse Rate 85 Pulse Rate [Left P ulse Oximeter] 84 85 Pulse Rate [Pulse Oximeter] Respiratory Rate 20 18 18 Respiratory Rate [ Neck] Blood Pressure 124/50 L Blood Pressure [Le ft Upper Arm] Blood Pressure [Ri ght Arm] 134/60 129/59 L Pulse Oximetry 90 96 95 08/28/21 14:18 08/28/21 14:30 08/28/21 14:45 Temperature 98.5 F 98.5 F Pulse Rate Pulse Rate [Left P ulse Oximeter] 85 85 Pulse Rate [Pulse Oximeter] Respiratory Rate 18 18 18 Respiratory Rate [ Neck] Blood Pressure Blood Pressure [Le ft Upper Arm] Blood Pressure [Ri ght Arm] 144/74 H 145/68 H Pulse Oximetry 95 95 95 08/28/21 15:00 08/28/21 15:30 08/28/21 15:38 Temperature 97.5 F L 97.5 F L 96.0 F L Pulse Rate 84 Pulse Rate [Left P ulse Oximeter] 86 97 Pulse Rate [Pulse Oximeter] Respiratory Rate 18 18 20 Respiratory Rate [ Neck] Blood Pressure Blood Pressure [Le ft Upper Arm] Blood Pressure [Ri ght Arm] 151/65 H 141/88 H 134/60 Pulse Oximetry 95 94 08/28/21 16:30 08/28/21 17:30 08/28/21 18:30 Temperature 96.0 F L 97.8 F 98 F Pulse Rate Pulse Rate [Left P ulse Oximeter] 97 89 88 Pulse Rate [Pulse Oximeter] Respiratory Rate 20 18 22 Respiratory Rate [ Neck] Blood Pressure Blood Pressure [Le ft Upper Arm] Blood Pressure [Ri ght Arm] 151/75 H 147/70 H 117/57 L Pulse Oximetry 94 95 94 08/28/21 19:30 08/28/21 20:30 08/28/21 23:00 Temperature 98.1 F 98.0 F Pulse Rate Pulse Rate [Left P ulse Oximeter] 88 94 Pulse Rate [Pulse Oximeter] Respiratory Rate 18 22 20 Respiratory Rate [ Neck] Blood Pressure Blood Pressure [Le ft Upper Arm] Blood Pressure [Ri ght Arm] 125/58 L 150/76 H Pulse Oximetry 96 96 95 08/29/21 00:00 08/29/21 02:00 08/29/21 04:00 Temperature 98.0 F 97.9 F 97.8 F Pulse Rate Pulse Rate [Left P ulse Oximeter] 86 77 70 Pulse Rate [Pulse Oximeter] Respiratory Rate 18 18 20 Respiratory Rate [ Neck] Blood Pressure Blood Pressure [Le ft Upper Arm] Blood Pressure [Ri ght Arm] 155/82 H 149/77 H 130/64 Pulse Oximetry 96 95 94 08/29/21 06:00 Temperature 97.9 F Pulse Rate Pulse Rate [Left P ulse Oximeter] Pulse Rate [Pulse Oximeter] Respiratory Rate 20 Respiratory Rate [ Neck] Blood Pressure Blood Pressure [Le ft Upper Arm] Blood Pressure [Ri ght Arm] 138/69 Pulse Oximetry 94 Labs Labs: Laboratory Results - last 24 hr 08/28/21 08/28/21 08/28/21 08:15 08:15 08:15 WBC 9.60 RBC 4.26 L Hgb 13.5 Hct 40.7 MCV 96 MCH 32 MCHC 33 RDW Coeff of Betty 12.7 Plt Count 173 Neut % (Auto) 72.9 H Lymph % (Auto) 12.5 L [place] % (Auto) 13.3 H Eos % (Auto) 0.6 Baso % (Auto) 0.3 Neut # (Auto) 7.00 Lymph # (Auto) 1.20 [place] # (Auto) 1.30 H Eos # (Auto) 0.06 Baso # (Auto) 0.03 Abs Immat Gran (auto) 0.04 INR Sodium 138 Potassium 3.3 L Chloride 103 Carbon Dioxide 32 BUN 25 Creatinine 0.9 Estimated Creat Clear 75.19 Estimated GFR 84 Glucose 115 Lactate 1.0 Calcium 8.1 L Total Bilirubin AST ALT Alkaline Phosphatase C-Reactive Protein 16.6 H Total Protein Albumin SARS-CoV-2 (PCR) 08/28/21 08/28/21 08/29/21 08:15 08:23 06:48 WBC 12.47 H RBC 4.25 L Hgb 13.5 Hct 40.6 MCV 96 MCH 32 MCHC 33 RDW Coeff of Betty 12.5 Plt Count 182 Neut % (Auto) 83.2 H Lymph % (Auto) 6.9 L [place] % (Auto) 9.4 Eos % (Auto) 0.0 Baso % (Auto) 0.1 Neut # (Auto) 10.40 H Lymph # (Auto) 0.90 [place] # (Auto) 1.20 H Eos # (Auto) 0.00 Baso # (Auto) 0.00 Abs Immat Gran (auto) 0.05 INR 1.19 H Sodium Potassium Chloride Carbon Dioxide BUN Creatinine Estimated Creat Clear Estimated GFR Glucose Lactate Calcium Total Bilirubin AST ALT Alkaline Phosphatase C-Reactive Protein Total Protein Albumin SARS-CoV-2 (PCR) Negative SARS-CoV-2 08/29/21 06:48 WBC RBC Hgb Hct MCV MCH MCHC RDW Coeff of Betty Plt Count Neut % (Auto) Lymph % (Auto) [place] % (Auto) Eos % (Auto) Baso % (Auto) Neut # (Auto) Lymph # (Auto) [place] # (Auto) Eos # (Auto) Baso # (Auto) Abs Immat Gran (auto) INR Sodium 141 Potassium 3.9 Chloride 107 Carbon Dioxide 33 H BUN 20 Creatinine 0.8 Estimated Creat Clear 77.79 Estimated GFR 87 Glucose 111 Lactate Calcium 7.8 L Total Bilirubin 1.1 AST 32 ALT 24 Alkaline Phosphatase 74 C-Reactive Protein Total Protein 6.0 Albumin 3.2 L SARS-CoV-2 (PCR)
--- NOTE | 2021-08-29 08:44 | P.ENTPN_ITS ---
ENT-PN: Subj Subjective Date Seen: 08/29/21 Interval history: Daily Progress Note - Hospital Medicine Day #: 2 Postop day 1 Antibiotic day 2 Zosyn Continues on LR at 100 mL an hour Status post potassium replacement CC: Still having trouble swallowing, comfortable. Postop day 1 I/D submental abscess OVERNIGHT UPDATES FROM STAFF & MED, LAB, IMAGING UPDATES Patient required IV narcotics overnight. He is still using the Yankauer suction for all secretions, saliva etc. patient is refusing p.o. intake, remains on IV antibiotics and IV fluids. White count is up to 12.5 from 9.6 on admission yesterday Hemoglobin is stable INR initially was 3.6, today is 1.2 Potassium has improved, back to normal. Kidney function and electrolytes are reassuring and normal this morning. CRP 16.6 yesterday, has not been recheck today. Review of Systems: See subjective Cardiac: No new chest pain/pressure/palpitations. Respiratory: no new dyspnea. Reports a baseline dyspnea. Not worse. GI: No abdominal bloating Objective: Vitals: Patient has been afebrile since admission Blood pressures are running 120s to 150s over 70s and 80s Pulse is in the 80s and 90s Respiratory rate is normal Pulse ox is normal on room air Lungs: Clear. Cardiac: S1S2. HEENT: Dressing is taken down and area is examined. Moderate lymphadenopathy and or firmness noted along bilateral jaw line. Right greater than left. Incision looks healthy and dry. There has been moderate drainage from the [place] drains x2 overnight. Serosanguineous. Patient can open his mouth less than 2 cm and cannot extend his tongue. Disposition/Potential discharge - Likely to return to previous living situation. Total time is 35 minutes with greater than 50% spent in counseling and coordination of care. Progress Note: A&P Assessment and plan (1) Neck abscess: Status: Acute (2) Anticoagulant long-term use: Status: Acute (3) COPD (chronic obstructive pulmonary disease): Status: Acute (4) Paroxysmal atrial fibrillation: Status: Acute (5) ASCVD (arteriosclerotic cardiovascular disease): Status: Acute (6) Sublingual abscess: Problem details: Status post I&D Status: Acute (7) Hypoxia: Status: Acute (8) Electrolyte and fluid disorder: Status: Acute (9) Trouble swallowing: Status: Acute (10) Hypertension: Status: Acute (11) Debility: Status: Acute (12) Malnutrition: Status: Acute Exam Const: Vital Signs, click to edit/add: Vital Signs - 24 hr 08/28/21 08:50 08/28/21 09:34 08/28/21 11:15 Temperature Pulse Rate Pulse Rate [Left P ulse Oximeter] Pulse Rate [Pulse Oximeter] 76 85 83 Respiratory Rate 18 18 18 Blood Pressure Blood Pressure [Le ft Upper Arm] 150/77 H 118/80 145/65 H Blood Pressure [Ri ght Arm] Pulse Oximetry 99 99 97 08/28/21 13:19 08/28/21 13:25 08/28/21 13:30 Temperature 97.8 F Pulse Rate 95 91 86 Pulse Rate [Left P ulse Oximeter] Pulse Rate [Pulse Oximeter] Respiratory Rate 20 20 20 Blood Pressure 143/67 H 140/60 H 126/83 Blood Pressure [Le ft Upper Arm] Blood Pressure [Ri ght Arm] Pulse Oximetry 95 95 08/28/21 13:35 08/28/21 13:40 08/28/21 13:45 Temperature 98 F Pulse Rate 88 83 85 Pulse Rate [Left P ulse Oximeter] Pulse Rate [Pulse Oximeter] Respiratory Rate 20 20 20 Blood Pressure 122/62 128/56 L 124/50 L Blood Pressure [Le ft Upper Arm] Blood Pressure [Ri ght Arm] Pulse Oximetry 95 94 90 08/28/21 14:00 08/28/21 14:15 08/28/21 14:18 Temperature 96 F L 95 F L Pulse Rate Pulse Rate [Left P ulse Oximeter] 84 85 Pulse Rate [Pulse Oximeter] Respiratory Rate 18 18 18 Blood Pressure Blood Pressure [Le ft Upper Arm] Blood Pressure [Ri ght Arm] 134/60 129/59 L Pulse Oximetry 96 95 95 08/28/21 14:30 08/28/21 14:45 08/28/21 15:00 Temperature 98.5 F 98.5 F 97.5 F L Pulse Rate Pulse Rate [Left P ulse Oximeter] 85 85 86 Pulse Rate [Pulse Oximeter] Respiratory Rate 18 18 18 Blood Pressure Blood Pressure [Le ft Upper Arm] Blood Pressure [Ri ght Arm] 144/74 H 145/68 H 151/65 H Pulse Oximetry 95 95 95 08/28/21 15:30 08/28/21 15:38 08/28/21 16:30 Temperature 97.5 F L 96.0 F L 96.0 F L Pulse Rate 84 Pulse Rate [Left P ulse Oximeter] 97 97 Pulse Rate [Pulse Oximeter] Respiratory Rate 18 20 20 Blood Pressure Blood Pressure [Le ft Upper Arm] Blood Pressure [Ri ght Arm] 141/88 H 134/60 151/75 H Pulse Oximetry 94 94 08/28/21 17:30 08/28/21 18:30 08/28/21 19:30 Temperature 97.8 F 98 F 98.1 F Pulse Rate Pulse Rate [Left P ulse Oximeter] 89 88 88 Pulse Rate [Pulse Oximeter] Respiratory Rate 18 22 18 Blood Pressure Blood Pressure [Le ft Upper Arm] Blood Pressure [Ri ght Arm] 147/70 H 117/57 L 125/58 L Pulse Oximetry 95 94 96 08/28/21 20:30 08/28/21 23:00 08/29/21 00:00 Temperature 98.0 F 98.0 F Pulse Rate Pulse Rate [Left P ulse Oximeter] 94 86 Pulse Rate [Pulse Oximeter] Respiratory Rate 22 20 18 Blood Pressure Blood Pressure [Le ft Upper Arm] Blood Pressure [Ri ght Arm] 150/76 H 155/82 H Pulse Oximetry 96 95 96 08/29/21 02:00 08/29/21 04:00 08/29/21 06:00 Temperature 97.9 F 97.8 F 97.9 F Pulse Rate Pulse Rate [Left P ulse Oximeter] 77 70 Pulse Rate [Pulse Oximeter] Respiratory Rate 18 20 20 Blood Pressure Blood Pressure [Le ft Upper Arm] Blood Pressure [Ri ght Arm] 149/77 H 130/64 138/69 Pulse Oximetry 95 94 94 08/29/21 08:11 08/29/21 08:12 Temperature 98.0 F Pulse Rate Pulse Rate [Left P ulse Oximeter] 85 Pulse Rate [Pulse Oximeter] Respiratory Rate 22 22 Blood Pressure Blood Pressure [Le ft Upper Arm] Blood Pressure [Ri ght Arm] 139/74 Pulse Oximetry 91 91 ENT-PN: Obj Labs Labs: Laboratory Results - last 24 hr 08/28/21 08/28/21 08/28/21 08:15 08:15 08:23 WBC RBC Hgb Hct MCV MCH MCHC RDW Coeff of Betty Plt Count Neut % (Auto) Lymph % (Auto) [place] % (Auto) Eos % (Auto) Baso % (Auto) Neut # (Auto) Lymph # (Auto) [place] # (Auto) Eos # (Auto) Baso # (Auto) Abs Immat Gran (auto) INR 1.19 H Sodium 138 Potassium 3.3 L Chloride 103 Carbon Dioxide 32 BUN 25 Creatinine 0.9 Estimated Creat Clear 75.19 Estimated GFR 84 Glucose 115 Calcium 8.1 L Total Bilirubin AST ALT Alkaline Phosphatase C-Reactive Protein 16.6 H Total Protein Albumin SARS-CoV-2 (PCR) Negative SARS-CoV-2 08/29/21 08/29/21 06:48 06:48 WBC 12.47 H RBC 4.25 L Hgb 13.5 Hct 40.6 MCV 96 MCH 32 MCHC 33 RDW Coeff of Betty 12.5 Plt Count 182 Neut % (Auto) 83.2 H Lymph % (Auto) 6.9 L [place] % (Auto) 9.4 Eos % (Auto) 0.0 Baso % (Auto) 0.1 Neut # (Auto) 10.40 H Lymph # (Auto) 0.90 [place] # (Auto) 1.20 H Eos # (Auto) 0.00 Baso # (Auto) 0.00 Abs Immat Gran (auto) 0.05 INR Sodium 141 Potassium 3.9 Chloride 107 Carbon Dioxide 33 H BUN 20 Creatinine 0.8 Estimated Creat Clear 77.79 Estimated GFR 87 Glucose 111 Calcium 7.8 L Total Bilirubin 1.1 AST 32 ALT 24 Alkaline Phosphatase 74 C-Reactive Protein Total Protein 6.0 Albumin 3.2 L SARS-CoV-2 (PCR)
--- NOTE | 2021-08-29 08:44 | P.ENTPN_ITS ---
ENT-PN: Subj Subjective Date Seen: 08/29/21 Interval history: Following note reviewed. Subjectively markedly improved with pain at less than 2/10 Discovered today he has a with 2 year history of dysphagia and has occasional endoscopy with dilation. He is having a hard time swallowing liquids. Otherwise doing very well Daily Progress Note - Hospital Medicine Day #: 2 Postop day 1 Antibiotic day 2 Zosyn Continues on LR at 100 mL an hour Status post potassium replacement CC: Still having trouble swallowing, comfortable. Postop day 1 I/D submental abscess OVERNIGHT UPDATES FROM STAFF & MED, LAB, IMAGING UPDATES Patient required IV narcotics overnight. He is still using the Yankauer suction for all secretions, saliva etc. patient is refusing p.o. intake, remains on IV antibiotics and IV fluids. White count is up to 12.5 from 9.6 on admission yesterday Hemoglobin is stable INR initially was 3.6, today is 1.2 Potassium has improved, back to normal. Kidney function and electrolytes are reassuring and normal this morning. CRP 16.6 yesterday, has not been recheck today. Review of Systems: See subjective Cardiac: No new chest pain/pressure/palpitations. Respiratory: no new dyspnea. Reports a baseline dyspnea. Not worse. GI: No abdominal bloating Objective: Vitals: Patient has been afebrile since admission Blood pressures are running 120s to 150s over 70s and 80s Pulse is in the 80s and 90s Respiratory rate is normal Pulse ox is normal on room air Lungs: Clear. Cardiac: S1S2. HEENT: Dressing is taken down and area is examined. Moderate lymphadenopathy and or firmness noted along bilateral jaw line. Right greater than left. Incision looks healthy and dry. There has been moderate drainage from the [place] drains x2 overnight. Serosanguineous. Patient can open his mouth less than 2 cm and cannot extend his tongue. Disposition/Potential discharge - Likely to return to previous living situation. Total time is 35 minutes with greater than 50% spent in counseling and coordination of care. Progress Note: A&P Assessment and plan (1) Neck abscess: Status: Acute (2) Anticoagulant long-term use: Status: Acute (3) COPD (chronic obstructive pulmonary disease): Status: Acute (4) Paroxysmal atrial fibrillation: Status: Acute (5) ASCVD (arteriosclerotic cardiovascular disease): Status: Acute Plan Status post incision drainage submental abscess following dental extraction. Doing well with the exception of dysphagia. He has a long history of dysphagia but I suspect the surgery is cause some was well. Tongue mobility is normal but staff. Recommend continued observation at this time and consider swallow study if not improved Exam Narrative: Exam Narrative: submental edema markedly diminished. He is still having serosanguineous drainage. G stain showed Gram-positive cocci and Gram-negative rods. Floor mouth edema markedly diminished. Oropharynx negative now other than mild edema in the floor mouth anteriorly much improved from yesterday. Const: Vital Signs, click to edit/add: Vital Signs - 24 hr 08/28/21 08:50 08/28/21 09:34 08/28/21 11:15 Temperature Pulse Rate Pulse Rate [Left P ulse Oximeter] Pulse Rate [Pulse Oximeter] 76 85 83 Respiratory Rate 18 18 18 Blood Pressure Blood Pressure [Le ft Upper Arm] 150/77 H 118/80 145/65 H Blood Pressure [Ri ght Arm] Pulse Oximetry 99 99 97 08/28/21 13:19 08/28/21 13:25 08/28/21 13:30 Temperature 97.8 F Pulse Rate 95 91 86 Pulse Rate [Left P ulse Oximeter] Pulse Rate [Pulse Oximeter] Respiratory Rate 20 20 20 Blood Pressure 143/67 H 140/60 H 126/83 Blood Pressure [Le ft Upper Arm] Blood Pressure [Ri ght Arm] Pulse Oximetry 95 95 08/28/21 13:35 08/28/21 13:40 08/28/21 13:45 Temperature 98 F Pulse Rate 88 83 85 Pulse Rate [Left P ulse Oximeter] Pulse Rate [Pulse Oximeter] Respiratory Rate 20 20 20 Blood Pressure 122/62 128/56 L 124/50 L Blood Pressure [Le ft Upper Arm] Blood Pressure [Ri ght Arm] Pulse Oximetry 95 94 90 08/28/21 14:00 08/28/21 14:15 08/28/21 14:18 Temperature 96 F L 95 F L Pulse Rate Pulse Rate [Left P ulse Oximeter] 84 85 Pulse Rate [Pulse Oximeter] Respiratory Rate 18 18 18 Blood Pressure Blood Pressure [Le ft Upper Arm] Blood Pressure [Ri ght Arm] 134/60 129/59 L Pulse Oximetry 96 95 95 08/28/21 14:30 08/28/21 14:45 08/28/21 15:00 Temperature 98.5 F 98.5 F 97.5 F L Pulse Rate Pulse Rate [Left P ulse Oximeter] 85 85 86 Pulse Rate [Pulse Oximeter] Respiratory Rate 18 18 18 Blood Pressure Blood Pressure [Le ft Upper Arm] Blood Pressure [Ri ght Arm] 144/74 H 145/68 H 151/65 H Pulse Oximetry 95 95 95 08/28/21 15:30 08/28/21 15:38 08/28/21 16:30 Temperature 97.5 F L 96.0 F L 96.0 F L Pulse Rate 84 Pulse Rate [Left P ulse Oximeter] 97 97 Pulse Rate [Pulse Oximeter] Respiratory Rate 18 20 20 Blood Pressure Blood Pressure [Le ft Upper Arm] Blood Pressure [Ri ght Arm] 141/88 H 134/60 151/75 H Pulse Oximetry 94 94 08/28/21 17:30 08/28/21 18:30 08/28/21 19:30 Temperature 97.8 F 98 F 98.1 F Pulse Rate Pulse Rate [Left P ulse Oximeter] 89 88 88 Pulse Rate [Pulse Oximeter] Respiratory Rate 18 22 18 Blood Pressure Blood Pressure [Le ft Upper Arm] Blood Pressure [Ri ght Arm] 147/70 H 117/57 L 125/58 L Pulse Oximetry 95 94 96 08/28/21 20:30 08/28/21 23:00 08/29/21 00:00 Temperature 98.0 F 98.0 F Pulse Rate Pulse Rate [Left P ulse Oximeter] 94 86 Pulse Rate [Pulse Oximeter] Respiratory Rate 22 20 18 Blood Pressure Blood Pressure [Le ft Upper Arm] Blood Pressure [Ri ght Arm] 150/76 H 155/82 H Pulse Oximetry 96 95 96 08/29/21 02:00 08/29/21 04:00 08/29/21 06:00 Temperature 97.9 F 97.8 F 97.9 F Pulse Rate Pulse Rate [Left P ulse Oximeter] 77 70 Pulse Rate [Pulse Oximeter] Respiratory Rate 18 20 20 Blood Pressure Blood Pressure [Le ft Upper Arm] Blood Pressure [Ri ght Arm] 149/77 H 130/64 138/69 Pulse Oximetry 95 94 94 08/29/21 08:11 08/29/21 08:12 Temperature 98.0 F Pulse Rate Pulse Rate [Left P ulse Oximeter] 85 Pulse Rate [Pulse Oximeter] Respiratory Rate 22 22 Blood Pressure Blood Pressure [Le ft Upper Arm] Blood Pressure [Ri ght Arm] 139/74 Pulse Oximetry 91 91 ENT-PN: Obj Labs Labs: Laboratory Results - last 24 hr 08/28/21 08/28/21 08/28/21 08:15 08:15 08:23 WBC RBC Hgb Hct MCV MCH MCHC RDW Coeff of Betty Plt Count Neut % (Auto) Lymph % (Auto) [place] % (Auto) Eos % (Auto) Baso % (Auto) Neut # (Auto) Lymph # (Auto) [place] # (Auto) Eos # (Auto) Baso # (Auto) Abs Immat Gran (auto) INR 1.19 H Sodium 138 Potassium 3.3 L Chloride 103 Carbon Dioxide 32 BUN 25 Creatinine 0.9 Estimated Creat Clear 75.19 Estimated GFR 84 Glucose 115 Calcium 8.1 L Total Bilirubin AST ALT Alkaline Phosphatase C-Reactive Protein 16.6 H Total Protein Albumin SARS-CoV-2 (PCR) Negative SARS-CoV-2 08/29/21 08/29/21 06:48 06:48 WBC 12.47 H RBC 4.25 L Hgb 13.5 Hct 40.6 MCV 96 MCH 32 MCHC 33 RDW Coeff of Betty 12.5 Plt Count 182 Neut % (Auto) 83.2 H Lymph % (Auto) 6.9 L [place] % (Auto) 9.4 Eos % (Auto) 0.0 Baso % (Auto) 0.1 Neut # (Auto) 10.40 H Lymph # (Auto) 0.90 [place] # (Auto) 1.20 H Eos # (Auto) 0.00 Baso # (Auto) 0.00 Abs Immat Gran (auto) 0.05 INR Sodium 141 Potassium 3.9 Chloride 107 Carbon Dioxide 33 H BUN 20 Creatinine 0.8 Estimated Creat Clear 77.79 Estimated GFR 87 Glucose 111 Calcium 7.8 L Total Bilirubin 1.1 AST 32 ALT 24 Alkaline Phosphatase 74 C-Reactive Protein Total Protein 6.0 Albumin 3.2 L SARS-CoV-2 (PCR)
[2021-08-29] MEDS: METOPROLOL TARTRATE 1 MG/ML inj 5 MG IVP (09:06)
[2021-08-29] MEDS: ALBUTEROL SULFATE 2.5 MG/3 ML VIAL.NEB NEB ×4 (09:07→21:03)
[2021-08-29 09:12] LABS: C Reactive Protein* 14.3 mg/dL (0.5-1.0)
[2021-08-29] MEDS: BUDESONIDE 0.5 MG/2ML NEB NEB ×2 (09:23→21:03)
[2021-08-29] MEDS: ENOXAPARIN 40 MG/0.4 ML INJ SUBCUT (09:54)
--- NOTE | 2021-08-29 17:37 | PC.NURSE ---
Pt continues to use suction via [place] removing sputum from oral surfaces himself. Pt denied pain most of the day until ~1700 and gave morphine with relief. Dressing changed with and seen by Dr. Contreras
--- NOTE | 2021-08-29 18:02 | PC.NURSE ---
Pt had two popsicle and reports he feels the right cheek has increase swelling inside jaw, nothing note to cheek or inside oral cavity. No redness. Updated 2 sons and daughter per pt request.
[2021-08-30] VITALS (10 sets, daily range): BP systolic 115–169; BP diastolic 67–86; PULSE 88–96; RESP 18–22; TEMP 36.4–37.1; O2SAT 91–96
[2021-08-30] MEDS: LORazepam 2 MG/ML inj 0.5 MG IVP (00:31)
[2021-08-30] MEDS: METOPROLOL TARTRATE 1 MG/ML inj 5 MG IVP ×2 (02:29→08:32)
[2021-08-30] MEDS: MORPHINE 2 MG/ML inj IVP ×4 (03:14→20:24)
[2021-08-30] MEDS: 0.9 % SODIUM CHLORIDE 1000 ml 1,000 ML 75 ML IV (04:24)
[2021-08-30] MEDS: PIPERACILLIN/TAZOBACTAM 3.375 GM in 0.9 % SODIUM CHLORIDE Mini-bag 100 ML IVPB ×4 (05:13→22:47)
[2021-08-30 06:28] LABS: HCO3 VBG 33 mmol/L (21-28); PCO2 VBG 58 mmHG (40-50); PO2 VBG 24.7 mmHG (25-47); pH VBG 7.364 (7.32-7.43)
[2021-08-30 06:31] LABS: Basophils Percent Auto 0.1 % (0.0-3.0); Eosinophils Percent Auto 0.3 % (0.0-7.0); Hematocrit 40.1 % (37.0-53.0); Hemoglobin* 13.3 gm/dL (13.5-17.5); Immature Granulocytes Abs Auto 0.14 K/uL (0.00-0.30); Lymphocytes Percent Auto 8.8 % (20-44); Mean Corpuscular HGB Conc 33 gm/dL (32-36); Mean Corpuscular Hemoglobin 32 pg (26-34); Mean Corpuscular Volume 97 fL (80-100); Monocytes Percent Auto 10.3 % (0.0-11.0); Neutrophils Percent Auto 79.3 % (42.0-72.0); Platelet Count* 218 K/uL (140-440); RDW Coefficient of Variation % 12.6 % (11.5-15.5); Red Blood Count 4.13 m/uL (4.30-5.90); White Blood Count* 11.99 K/uL (4.50-11.00)
[2021-08-30 06:32] LABS: Slide Review Reflex No
[2021-08-30 06:51] LABS: Chloride* 108 mmol/L (96-114); Sodium* 144 mmol/L (135-149)
[2021-08-30 06:54] LABS: Creatinine* 0.8 mg/dL (0.5-1.5); Est. Creatinine Clearance* 77.79; Estimated Glomerular Filt Rate 87 ml/min
[2021-08-30 06:55] LABS: Blood Urea Nitrogen* 21 mg/dL (7-30); Carbon Dioxide* 34 mmol/L (20-32); Glucose* 105 mg/dL (60-115)
[2021-08-30 06:58] LABS: C Reactive Protein* 8.9 mg/dL (0.5-1.0)
[2021-08-30] MEDS: ALBUTEROL SULFATE 2.5 MG/3 ML VIAL.NEB NEB ×4 (08:31→21:19)
[2021-08-30] MEDS: ENOXAPARIN 40 MG/0.4 ML INJ SUBCUT (08:31)
[2021-08-30] MEDS: BUDESONIDE 0.5 MG/2ML NEB NEB ×2 (08:33→21:19)
--- NOTE | 2021-08-30 08:57 | W.PM.ENTPN ---
ENT-PN: Subj Subjective Date Seen: 08/30/21 Interval history: Reviewed below. Pain continues to diminish. He still has upper dysphagia likely due to edema postsurgical an abscess. However he has progressed to being able to take popsicles. I removed the left drain. His edema is nearly completely gone in the neck. I would like to leave the right drain in until Tuesday. Oral cavity oropharynx exam is negative impression is slow improvement in his dysphagia rapid improvement in his abscess plan would be to dismiss when he is able to take adequate oral intake and if not improved by Tuesday morning would arrange a swallow study Daily Progress Note - Hospital Medicine Day #: 2 Postop day 1 Antibiotic day 2 Zosyn Continues on LR at 100 mL an hour Status post potassium replacement CC: Still having trouble swallowing, comfortable. Postop day 1 I/D submental abscess OVERNIGHT UPDATES FROM STAFF & MED, LAB, IMAGING UPDATES Patient required IV narcotics overnight. He is still using the Yankauer suction for all secretions, saliva etc. patient is refusing p.o. intake, remains on IV antibiotics and IV fluids. micro reviewed, gram + cocci and gram - rods. awaiting c/s. White count is up to 12.5 from 9.6 on admission yesterday (got Hemoglobin is stable INR initially was 3.6, today is 1.2 Potassium has improved, back to normal. Kidney function and electrolytes are reassuring and normal this morning. CRP 16.6 yesterday, has not been recheck today. Review of Systems: See subjective Cardiac: No new chest pain/pressure/palpitations. Respiratory: no new dyspnea. Reports a baseline dyspnea. Not worse. GI: No abdominal bloating Objective: Vitals: Patient has been afebrile since admission Blood pressures are running 120s to 150s over 70s and 80s Pulse is in the 80s and 90s Respiratory rate is normal Pulse ox is normal on room air Lungs: Clear. Cardiac: S1S2. HEENT: Dressing is taken down and area is examined. Moderate lymphadenopathy and or firmness noted along bilateral jaw line. Right greater than left. Incision looks healthy and free of purulence. There has been moderate drainage from the [place] drains x2 overnight. Serosanguineous. Patient can open his mouth less than 2 cm and cannot extend his tongue. Disposition/Potential discharge - Likely to return to previous living situation. Total time is 35 minutes with greater than 50% spent in counseling and coordination of care. Progress Note: A&P Assessment and plan (1) Neck abscess: Status: Acute Assessment and Plan: See above (2) Anticoagulant long-term use: Status: Acute (3) COPD (chronic obstructive pulmonary disease): Status: Acute (4) Paroxysmal atrial fibrillation: Status: Acute (5) ASCVD (arteriosclerotic cardiovascular disease): Status: Acute Time Spent With Patient Total time spent: 20 Exam Const: Vital Signs, click to edit/add: Vital Signs - 24 hr 08/29/21 11:01 08/29/21 11:24 08/29/21 13:05 Temperature 97.4 F L 97.6 F 96.8 F L Pulse Rate [Left P ulse Oximeter] 80 89 83 Respiratory Rate 20 18 20 Blood Pressure [Ri ght Arm] 128/68 134/63 142/74 H Pulse Oximetry 94 95 95 08/29/21 15:41 08/29/21 15:46 08/29/21 17:33 Temperature 97.2 F L 97.4 F L Pulse Rate [Left P ulse Oximeter] 78 76 Respiratory Rate 20 20 16 Blood Pressure [Ri ght Arm] 110/75 142/76 H Pulse Oximetry 97 98 08/29/21 20:15 08/29/21 23:00 08/30/21 02:31 Temperature 97.5 F L 97.6 F Pulse Rate [Left P ulse Oximeter] 90 96 96 Respiratory Rate 20 20 Blood Pressure [Ri ght Arm] 112/97 H 150/67 H 169/86 H Pulse Oximetry 94 93 08/30/21 03:30 08/30/21 08:35 Temperature 97.6 F 98.8 F Pulse Rate [Left P ulse Oximeter] 88 88 Respiratory Rate 18 20 Blood Pressure [Ri ght Arm] 134/74 Pulse Oximetry 93 96 ENT-PN: Obj Labs Labs: Laboratory Results - last 24 hr 08/29/21 08/30/21 08/30/21 06:48 06:03 06:03 WBC 11.99 H RBC 4.13 L Hgb 13.3 L Hct 40.1 MCV 97 MCH 32 MCHC 33 RDW Coeff of Betty 12.6 Plt Count 218 Neut % (Auto) 79.3 H Lymph % (Auto) 8.8 L [place] % (Auto) 10.3 Eos % (Auto) 0.3 Baso % (Auto) 0.1 Neut # (Auto) 9.50 H Lymph # (Auto) 1.10 [place] # (Auto) 1.20 H Eos # (Auto) 0.00 Baso # (Auto) 0.00 Abs Immat Gran (auto) 0.14 VBG pH VBG pCO2 VBG pO2 VBG HCO3 Sodium 144 Potassium 4.0 Chloride 108 Carbon Dioxide 34 H BUN 21 Creatinine 0.8 Estimated Creat Clear 77.79 Estimated GFR 87 Glucose 105 Calcium 8.0 L C-Reactive Protein 14.3 H 8.9 H 08/30/21 06:03 WBC RBC Hgb Hct MCV MCH MCHC RDW Coeff of Betty Plt Count Neut % (Auto) Lymph % (Auto) [place] % (Auto) Eos % (Auto) Baso % (Auto) Neut # (Auto) Lymph # (Auto) [place] # (Auto) Eos # (Auto) Baso # (Auto) Abs Immat Gran (auto) VBG pH 7.364 VBG pCO2 58 H VBG pO2 24.7 L VBG HCO3 33 H Sodium Potassium Chloride Carbon Dioxide BUN Creatinine Estimated Creat Clear Estimated GFR Glucose Calcium C-Reactive Protein
--- NOTE | 2021-08-30 09:11 | PC.NURSE ---
shift note -: Pt pleasant and cooperative, A&O. Afebrile. Oxygen saturations in low 90's on 1L O2 PNC. Pt coughing frequently, still using a Yankauer to suction out his secretions. Pt was able to eat two popsicles overnight. PRN Morphine given for pain x1 otherwise pt has declined need for pain medication and states he is comfortable. Pt up 1 assist with walker to BR and tolerating well. Denies CP and N/V.
--- NOTE | 2021-08-30 11:52 | P.IMPN_ITS ---
Progress Note: A&P Assessment and plan (1) Neck abscess: Status: Acute Assessment and Plan: Slowly getting better. Still having some troubles with opening his mouth and swallowing. Continue antibiotics. Continue co management with ENT (2) Hypoxia: Status: Acute Assessment and Plan: Continue to monitor. Likely due to COPD. Would like to see him wean off oxygen prior to discharge. (3) Electrolyte and fluid disorder: Status: Acute Assessment and Plan: Will taper IV fluids. Switch to lactated Ringer's. Will see if he can maintain hydration will by oral means. (4) Trouble swallowing: Status: Acute Assessment and Plan: Swallowing evaluation tomorrow. (5) Hypertension: Status: Acute Assessment and Plan: Resume normal blood pressure medicines (6) Anticoagulant long-term use: Status: Acute Assessment and Plan: Resume anticoagulation. (7) COPD (chronic obstructive pulmonary disease): Status: Acute (8) Paroxysmal atrial fibrillation: Status: Acute Time Spent With Patient Total time spent: 45 minutes, 25 minutes in coordination of care and discussing with patient and other providers management of swallowing troubles as well as multiple other medical problems, hypertension, hydration, pain control Subjective Date Seen: 08/30/21 Interval history: Patient reports feeling a little better today. He still having trouble swallowing. Reports it is painful and also difficult to swallow. The difficulties in the back of his throat primarily. He does not feel like he is having previous esophageal problems recurring. He reports his breathing is at baseline. He is still requiring 1 L of oxygen to maintain his O2 sats. Exam Narrative: Exam Narrative: He is alert and appears in no distress. Still having some trouble articulating clearly. Appears to have some troubles managing the secretions in his back of his throat as well. He has difficulty swallowing these secretions. He has trismus with ability to open incisors 2 cm. Surgical wound under his mentum draining some purulent material. Neck is supple without mass or adenopathy. No stridor. Respirations with diminished breath sounds and bibasilar crackles. Cardiovascular: S1, S2, irregular rhythm. Const: Vital Signs, click to edit/add: Vital Signs - 24 hr 08/29/21 13:05 08/29/21 15:41 08/29/21 15:46 Temperature 96.8 F L 97.2 F L Pulse Rate [Left P ulse Oximeter] 83 78 Respiratory Rate 20 20 20 Blood Pressure [Ri ght Arm] 142/74 H 110/75 Pulse Oximetry 95 97 08/29/21 17:33 08/29/21 20:15 08/29/21 23:00 Temperature 97.4 F L 97.5 F L 97.6 F Pulse Rate [Left P ulse Oximeter] 76 90 96 Respiratory Rate 16 20 20 Blood Pressure [Ri ght Arm] 142/76 H 112/97 H 150/67 H Pulse Oximetry 98 94 93 08/30/21 02:31 08/30/21 03:30 08/30/21 08:35 Temperature 97.6 F 98.8 F Pulse Rate [Left P ulse Oximeter] 96 88 88 Respiratory Rate 18 20 Blood Pressure [Ri ght Arm] 169/86 H 134/74 Pulse Oximetry 93 96 08/30/21 09:29 08/30/21 10:51 Temperature 98 F Pulse Rate [Left P ulse Oximeter] 94 Respiratory Rate 20 20 Blood Pressure [Ri ght Arm] 147/67 H Pulse Oximetry 91 93 Documenting provider has reviewed patient's vital signs: yes Labs Labs: Laboratory Results - last 24 hr 08/30/21 08/30/21 08/30/21 06:03 06:03 06:03 WBC 11.99 H RBC 4.13 L Hgb 13.3 L Hct 40.1 MCV 97 MCH 32 MCHC 33 RDW Coeff of Betty 12.6 Plt Count 218 Neut % (Auto) 79.3 H Lymph % (Auto) 8.8 L [place] % (Auto) 10.3 Eos % (Auto) 0.3 Baso % (Auto) 0.1 Neut # (Auto) 9.50 H Lymph # (Auto) 1.10 [place] # (Auto) 1.20 H Eos # (Auto) 0.00 Baso # (Auto) 0.00 Abs Immat Gran (auto) 0.14 VBG pH 7.364 VBG pCO2 58 H VBG pO2 24.7 L VBG HCO3 33 H Sodium 144 Potassium 4.0 Chloride 108 Carbon Dioxide 34 H BUN 21 Creatinine 0.8 Estimated Creat Clear 77.79 Estimated GFR 87 Glucose 105 Calcium 8.0 L C-Reactive Protein 8.9 H
[2021-08-30] MEDS: lisinopriL 20 MG TABLET PO (12:51)
[2021-08-30] MEDS: LACTATED RINGERS 1000 ML 1,000 ML 50 ML IV (12:52)
--- NOTE | 2021-08-30 14:05 | RESP.RT ---
Patient up in chair, appears comfortable getting nebulizer treatment. Bilateral breath sounds improved over yesterday, more air movement and less predominate upper air way closing sound. on 1.0 Lpm nasal cannula.
[2021-08-30] MEDS: WARFARIN 3 MG TABLET 6 MG PO (17:14)
--- NOTE | 2021-08-30 17:59 | PC.NURSE ---
Shift Summary: Patient pleasant and cooperative. Using call light appropriately. Up walking in halls x2 today. Vitals stable, tachycardic at times, BP elevated, o2 sats >90% on 0.75L/NC, RT brought low flow meter. Patient appears to be tolerating clears better throughout day, has had 1.5 ensure clear. Up with one assist, walker and gait belt. Surgeon here earlier and removed one drain tube. Dressing change done in AM. Patients pain controlled well with PRN morphine.
[2021-08-30] MEDS: SENNOSIDES 1 TAB TABLET PO (21:19)
[2021-08-30] MEDS: MIRTAZAPINE 15 MG TABLET 7.5 MG PO (21:19)
[2021-08-30] MEDS: ATORVASTATIN CALCIUM 40 MG TABLET PO (21:19)
[2021-08-31] VITALS (7 sets, daily range): BP systolic 114–164; BP diastolic 57–99; PULSE 80–97; RESP 22–24; TEMP 36.7–37.3; O2SAT 92–97
[2021-08-31] MEDS: MORPHINE 2 MG/ML inj IVP
[2021-08-31] MEDS: PIPERACILLIN/TAZOBACTAM 3.375 GM in 0.9 % SODIUM CHLORIDE Mini-bag 100 ML IVPB ×4 (04:45→23:14)
--- NOTE | 2021-08-31 06:43 | PC.NURSE ---
[id number]: Patient cooperative with cares. A&Ox3. Patient has difficulty swallowing. Likes to eat popsicles. Independently uses [place] for suctioning. Garbled speech at times d/t saliva buildup. 1 Lt NC to maintain O2 sats >90%. A1, 4ww, GB. Tolerates well. Continent/incontinent. Pull up brief in place. [place] drain in place secured with Kerlix with small amount of drainage.
[2021-08-31 07:10] LABS: Basophils Percent Auto 0.2 % (0.0-3.0); Eosinophils Percent Auto 0.9 % (0.0-7.0); Hematocrit 39.9 % (37.0-53.0); Hemoglobin* 13.1 gm/dL (13.5-17.5); Immature Granulocytes Abs Auto 0.06 K/uL (0.00-0.30); Mean Corpuscular HGB Conc 33 gm/dL (32-36); Mean Corpuscular Hemoglobin 32 pg (26-34); Mean Corpuscular Volume 97 fL (80-100); Monocytes Percent Auto 10.3 % (0.0-11.0); Neutrophils Percent Auto 82.1 % (42.0-72.0); Platelet Count* 223 K/uL (140-440); RDW Coefficient of Variation % 12.8 % (11.5-15.5); Red Blood Count 4.11 m/uL (4.30-5.90); White Blood Count* 12.75 K/uL (4.50-11.00)
[2021-08-31 07:12] LABS: Slide Review Reflex No
[2021-08-31 07:23] LABS: Chloride* 109 mmol/L (96-114); Potassium* 3.5 mmol/L (3.6-5.1); Sodium* 142 mmol/L (135-149)
[2021-08-31 07:26] LABS: Creatinine* 0.8 mg/dL (0.5-1.5); Est. Creatinine Clearance* 77.79; Estimated Glomerular Filt Rate 87 ml/min; INR 1.29 (0.91-1.10); Prothrombin Time 16.5 Seconds
[2021-08-31 07:27] LABS: Blood Urea Nitrogen* 19 mg/dL (7-30); Calcium* 8.1 mg/dL (8.4-10.6); Carbon Dioxide* 33 mmol/L (20-32); Glucose* 135 mg/dL (60-115)
[2021-08-31 07:41] LABS: C Reactive Protein* 14.6 mg/dL (0.5-1.0)
--- NOTE | 2021-08-31 08:28 | XR_ITS ---
Final Report Patient: AUTUMN MILAN Facility:?[facility] Patient ID:?[id number] Site Patient ID:?[id number]. Site :?[id number] Study:?XRay Chest 2 view-08/31/2021 10:17:37 AM Ordering Physician:Yan Gan Final Report: INDICATION: Hypoxia, cough. TECHNIQUE: Chest 2 views. COMPARISON: Chest radiographs 10/26/2020 and 08/28/[address] neck 08/28/2021. FINDINGS: Cardiovascular and mediastinum: Heart size and vasculature are normal in caliber and appearance. Lungs and pleural spaces: Stable blunting of the bilateral costophrenic angles. Mild stable interstitial prominence. Lungs are otherwise clear. No large pleural effusion or pneumothorax. Bones and soft tissues: No significant findings. IMPRESSION: Stable chronic blunting of the bilateral costophrenic angles. No evidence of acute abnormality. Dictated by Isidro Barragan MD @ 08/31/2021 10:27:42 AM (Electronic Signature)
[2021-08-31] MEDS: METOPROLOL SUCCINATE (XL) 50 MG TAB 75 MG PO (08:48)
[2021-08-31] MEDS: ALBUTEROL SULFATE 2.5 MG/3 ML VIAL.NEB NEB ×4 (08:48→21:29)
[2021-08-31] MEDS: lisinopriL 20 MG TABLET PO (08:49)
[2021-08-31] MEDS: SENNOSIDES 1 TAB TABLET PO ×2 (08:50→21:30)
[2021-08-31] MEDS: BUDESONIDE 0.5 MG/2ML NEB NEB ×2 (08:51→21:29)
--- NOTE | 2021-08-31 10:44 | PM.IMPN1 ---
Progress Note: A&P Assessment and plan (1) Sublingual abscess: Problem details: Status post I&D Status: Acute Assessment and Plan: Status post I&D. Draining wound under his chin. Continue IV antibiotics for now (2) Hypoxia: Status: Acute Assessment and Plan: Appears to be combination of COPD and possibly volume overload today. Trial of diuresis. (3) Electrolyte and fluid disorder: Status: Acute Assessment and Plan: Appears volume overloaded today. continue to address fluid status and electrolytes. (4) Trouble swallowing: Status: Acute Assessment and Plan: Encouraged patient to manage his own secretions without suction catheter. Swallowing evaluation (5) Hypertension: Status: Acute Assessment and Plan: Continue to monitor and resume blood pressure medicines as tolerated (6) Anticoagulant long-term use: Status: Acute Assessment and Plan: Resume therapeutic warfarin. No evidence of significant active bleeding (7) COPD (chronic obstructive pulmonary disease): Status: Acute Assessment and Plan: Continued inhaled bronchodilators (8) Paroxysmal atrial fibrillation: Status: Acute Assessment and Plan: Continue rate control with metoprolol and stroke prophylaxis with warfarin (9) Debility: Status: Acute Assessment and Plan: Engage patient to be more mobile and active. PT OT and nursing to get him mobilized. (10) Malnutrition: Status: Acute Assessment and Plan: Encourage oral intake. Full liquid diet Time Spent With Patient Total time spent: Total time spent with patient is 45 minutes, 30 minutes in coordination of care discussing with patient and other providers management of swallowing troubles, debility, nutrition and hydration Subjective Date Seen: 08/31/21 Interval history: Patient is continued to have troubles managing secretions. Reports it hurts to swallow. He still restrict himself to just popsicles. No other liquids in his diet. He reports his pain is located in the back of his mouth when he swallows. He has continued to suction his secretions rather than swallow or spit them out. He has continued to need oxygen to maintain his O2 sats in the 90s. Exam Narrative: Exam Narrative: He is alert and appears in no obvious distress. He has audible gurgling in his throat when he coughs and at times when he is speaking. When asked him to cough up the secretions in his throat and swallow or spit them out he instead uses a suction catheter to remove them. Secretions are blood-tinged. He continues to have some trismus and limited opening of his mouth. Oropharynx otherwise appears normal. Neck is supple without mass or adenopathy. Drainage from the surgical incision under his chin is improving. Respirations still with bilateral crackles more prominent at lung bases. Also diffuse rhonchi. Cardiovascular: S1, S2, irregular rhythm. Abdomen: Bowel sounds active. Abdomen is soft without tenderness or mass. Extremities without edema. Const: Vital Signs, click to edit/add: Vital Signs - 24 hr 08/30/21 10:51 08/30/21 13:02 08/30/21 14:35 Temperature 98 F 98.7 F Pulse Rate [Left P ulse Oximeter] 94 94 Respiratory Rate 20 20 18 Blood Pressure [Ri ght Arm] 147/67 H 147/70 H Pulse Oximetry 93 96 92 08/30/21 16:35 08/30/21 19:00 08/30/21 23:00 Temperature 98 F 97.8 F Pulse Rate [Left P ulse Oximeter] 88 94 Respiratory Rate 18 20 22 Blood Pressure [Ri ght Arm] 115/78 144/80 H Pulse Oximetry 94 94 93 08/31/21 03:00 08/31/21 07:00 Temperature 98.8 F 98.0 F Pulse Rate [Left P ulse Oximeter] 92 80 Respiratory Rate 22 22 Blood Pressure [Ri ght Arm] 159/79 H 129/67 Pulse Oximetry 92 97 Documenting provider has reviewed patient's vital signs: yes Labs Labs: Laboratory Results - last 24 hr 08/31/21 08/31/21 08/31/21 06:46 06:46 06:46 WBC 12.75 H RBC 4.11 L Hgb 13.1 L Hct 39.9 MCV 97 MCH 32 MCHC 33 RDW Coeff of Betty 12.8 Plt Count 223 Neut % (Auto) 82.1 H Lymph % (Auto) 6.0 L [place] % (Auto) 10.3 Eos % (Auto) 0.9 Baso % (Auto) 0.2 Neut # (Auto) 10.50 H Lymph # (Auto) 0.80 L [place] # (Auto) 1.30 H Eos # (Auto) 0.10 Baso # (Auto) 0.00 Abs Immat Gran (auto) 0.06 INR 1.29 H Sodium 142 Potassium 3.5 L Chloride 109 Carbon Dioxide 33 H BUN 19 Creatinine 0.8 Estimated Creat Clear 77.79 Estimated GFR 87 Glucose 135 H Calcium 8.1 L C-Reactive Protein 14.6 H
[2021-08-31] MEDS: POTASSIUM CHLORIDE 10 MEQ CAPSULE ER 20 MEQ PO (11:15)
[2021-08-31] MEDS: FUROSEMIDE 10 MG/ML inj 20 MG IV (11:16)
--- NOTE | 2021-08-31 11:17 | RESP.RT ---
Patient up in chair, appears comfortable.? Bilateral breath sounds improved over yesterday, more air movement, today noted inspiratory coarse crackles all [place], less predominate expiratory upper air way closing sound, expiratory crackle noted. on 1.0 Lpm nasal cannula, breathing regular/easy, rate 18/minute.
[2021-08-31 11:42] LABS: HCO3 VBG 33 mmol/L (21-28); PCO2 VBG 48 mmHG (40-50); PO2 VBG 27.1 mmHG (25-47); pH VBG 7.437 (7.32-7.43)
[2021-08-31] MEDS: 0.9 % SODIUM CHLORIDE 250 ml IV (12:45)
--- NOTE | 2021-08-31 16:05 | PC.SOCIAL ---
Discharge planning: Met with sons, Glenn and Jovanny, at their request regarding d/c plan. Doug state pt is not able to return directly home with his at discharge and requesting short term rehab placement at discharge. Son, Glenn [phone], states he is a nursing surgical services director and will be the family contact for discharge planning. Glenn requested placement at the [facility] as first choice as pt has been there before. If there is no bed available at the [facility], family is requesting another facility in [place], either [facility] or the [facility]. slate worker left a message at [facility] requesting call back regarding availability. No bed currently at [facility]. [facility] will evaluate pt for admit if [facility] does not have availability. slate worker to follow up as needed.
[2021-08-31] MEDS: WARFARIN 3 MG TABLET 6 MG PO (17:03)
[2021-08-31] MEDS: ACETAMINOPHEN 325 MG TABLET 975 MG PO (17:56)
--- NOTE | 2021-08-31 18:30 | PC.NURSE ---
Pt. alert and oriented. Speech is garbled, and withdrawn and has been sleeping most of the day. Needs encouragement for activity. Ambulated in hallway w/aide tolerated well. HR has been high 90's throughout shift however around 1700 pt. noted to be tachy w/HR between 100-115. Hx of a-fib HR irreg. Dressing to neck is clean, dry, intact. Changed at 1700 w/serosanguineous drainage, no odor. Lasix given one time, LS improving. Pt. on 1 L nasal cannula Low flow meter in room. Upon O2 assessment this AM pt. dsats 88-90%. IS in room and nebs scheduled. Saline Locked this AM. Pt. encouraged to manage secretions independently and tolerating well. Meds crushed in apple sauce tolerated well. Spouse unable to call for update, nursing to call spouse w/update and any changes.
[2021-08-31] MEDS: ATORVASTATIN CALCIUM 40 MG TABLET PO (21:29)
[2021-08-31] MEDS: MELATONIN 3 MG TABLET PO (21:30)
[2021-08-31] MEDS: MIRTAZAPINE 15 MG TABLET 7.5 MG PO (21:30)
[2021-09-01] VITALS (12 sets, daily range): BP systolic 129–156; BP diastolic 55–83; PULSE 74–98; RESP 16–24; TEMP 36.4–37.8; O2SAT 91–96
[2021-09-01] MEDS: guaiFENesin 100 MG/ML CUP PO (00:55)
[2021-09-01] MEDS: ACETAMINOPHEN 325 MG TABLET 975 MG PO (01:30)
[2021-09-01] MEDS: PIPERACILLIN/TAZOBACTAM 3.375 GM in 0.9 % SODIUM CHLORIDE Mini-bag 100 ML IVPB ×4 (04:39→22:38)
--- NOTE | 2021-09-01 06:17 | PC.NURSE ---
SHIFT NOTE -: Pt pleasant, A&O. Afebrile. Oxygen saturations low to mid 90's on 1L O2 PNC. Up SBA with walker and tolerating well, incontinent of urine x1. PRN Tylenol given for pain with pt reporting relief. Dressing to neck is CDI. Pt given Robitussin for productive cough which has helped reduced frequency. Pt still is spitting some of his secretions out. Pt denies N/V, SOB, and CP.
[2021-09-01 06:56] LABS: HCO3 VBG 36 mmol/L (21-28); PCO2 VBG 59 mmHG (40-50); PO2 VBG 32.6 mmHG (25-47); pH VBG 7.395 (7.32-7.43)
[2021-09-01 07:02] LABS: Basophils Percent Auto 0.2 % (0.0-3.0); Eosinophils Percent Auto 1.2 % (0.0-7.0); Hematocrit 39.1 % (37.0-53.0); Hemoglobin* 12.7 gm/dL (13.5-17.5); Immature Granulocytes Abs Auto 0.09 K/uL (0.00-0.30); Lymphocytes Percent Auto 7.8 % (20-44); Mean Corpuscular HGB Conc 33 gm/dL (32-36); Mean Corpuscular Hemoglobin 32 pg (26-34); Mean Corpuscular Volume 97 fL (80-100); Monocytes Percent Auto 8.4 % (0.0-11.0); Neutrophils Percent Auto 81.7 % (42.0-72.0); Platelet Count* 242 K/uL (140-440); RDW Coefficient of Variation % 12.6 % (11.5-15.5); Red Blood Count 4.02 m/uL (4.30-5.90); White Blood Count* 12.96 K/uL (4.50-11.00)
[2021-09-01 07:14] LABS: INR 1.48 (0.91-1.10); Prothrombin Time 18.4 Seconds
[2021-09-01 07:23] LABS: Chloride* 105 mmol/L (96-114); Potassium* 3.7 mmol/L (3.6-5.1); Sodium* 141 mmol/L (135-149)
[2021-09-01 07:26] LABS: Blood Urea Nitrogen* 22 mg/dL (7-30); Carbon Dioxide* 34 mmol/L (20-32); Creatinine* 0.8 mg/dL (0.5-1.5); Est. Creatinine Clearance* 77.79; Estimated Glomerular Filt Rate 87 ml/min
[2021-09-01 07:27] LABS: Calcium* 8.4 mg/dL (8.4-10.6); Glucose* 114 mg/dL (60-115)
[2021-09-01 07:37] LABS: Slide Review Reflex No
[2021-09-01 07:44] LABS: C Reactive Protein* 18.8 mg/dL (0.5-1.0)
[2021-09-01] MEDS: BUDESONIDE 0.5 MG/2ML NEB NEB ×2 (09:10→20:05)
[2021-09-01] MEDS: SENNOSIDES 1 TAB TABLET PO ×2 (09:11→20:01)
[2021-09-01] MEDS: lisinopriL 20 MG TABLET PO (09:11)
[2021-09-01] MEDS: TRIAMTERENE-HCTZ 37.5-25 MG TB 1 TAB PO (09:11)
[2021-09-01] MEDS: ALBUTEROL SULFATE 2.5 MG/3 ML VIAL.NEB NEB ×4 (09:11→20:12)
[2021-09-01] MEDS: METOPROLOL SUCCINATE (XL) 50 MG TAB 75 MG PO (09:14)
--- NOTE | 2021-09-01 11:38 | PM.IMPN1 ---
Progress Note: A&P Assessment and plan (1) Sublingual abscess: Problem details: Status post I&D Status: Acute Assessment and Plan: Status post I&D. Draining wound under his chin. Continue IV antibiotics for now (2) Hypoxia: Status: Acute Assessment and Plan: Appears to be combination of COPD and possibly volume overload today. Trial of diuresis. 09/01; resolving (3) Electrolyte and fluid disorder: Status: Acute Assessment and Plan: Appears volume overloaded today. continue to address fluid status and electrolytes. (4) Trouble swallowing: Status: Acute Assessment and Plan: NPO; Barrium swallow study today or tomorrow (5) Hypertension: Status: Acute Assessment and Plan: Continue to monitor and resume blood pressure medicines as tolerated (6) Anticoagulant long-term use: Status: Acute Assessment and Plan: Resume therapeutic warfarin. No evidence of significant active bleeding (7) COPD (chronic obstructive pulmonary disease): Status: Acute Assessment and Plan: Continued inhaled bronchodilators (8) Paroxysmal atrial fibrillation: Status: Acute Assessment and Plan: Continue rate control with metoprolol and stroke prophylaxis with warfarin (9) Debility: Status: Acute Assessment and Plan: Engage patient to be more mobile and active. PT OT and nursing to get him mobilized. (10) Malnutrition: Status: Acute Assessment and Plan: Transition to NPO Time Spent With Patient Total time spent: Total time spent with patient is 35 minutes, 25 minutes in coordination of care discussing with patient and other providers management of swallowing troubles, debility, nutrition and hydration Subjective Date Seen: 09/01/21 Interval history: patient continues to have oral secretions evaluated by speech therapy recommending NPO SOB is chronic and baseline; on minimal supplemental oxygen Exam Narrative: Exam Narrative: Gen: no acute distress HEENT: NCAT EOMI mmm CV: RRR normal s1 s2 Lungs: CTAB Abd: Soft, nt, nd Const: Vital Signs, click to edit/add: Vital Signs - 24 hr 08/31/21 15:00 08/31/21 19:45 08/31/21 23:00 Temperature 98.9 F 98.3 F 99.1 F Pulse Rate [Left P ulse Oximeter] 92 90 92 Respiratory Rate 22 24 22 Blood Pressure [Ri ght Arm] 164/75 H 131/57 L 114/99 H Pulse Oximetry 95 94 94 09/01/21 04:20 09/01/21 07:00 09/01/21 08:00 Temperature 99.2 F 98.2 F Pulse Rate [Left P ulse Oximeter] 74 74 74 Respiratory Rate 24 22 22 Blood Pressure [Ri ght Arm] 138/66 144/73 H Pulse Oximetry 95 96 96 Labs Labs: Laboratory Results - last 24 hr 08/31/21 09/01/21 09/01/21 11:36 06:37 06:37 WBC 12.96 H RBC 4.02 L Hgb 12.7 L Hct 39.1 MCV 97 MCH 32 MCHC 33 RDW Coeff of Betty 12.6 Plt Count 242 Neut % (Auto) 81.7 H Lymph % (Auto) 7.8 L [place] % (Auto) 8.4 Eos % (Auto) 1.2 Baso % (Auto) 0.2 Neut # (Auto) 10.60 H Lymph # (Auto) 1.00 [place] # (Auto) 1.10 H Eos # (Auto) 0.20 Baso # (Auto) 0.00 Abs Immat Gran (auto) 0.09 INR VBG pH 7.437 H 7.395 VBG pCO2 48 59 H VBG pO2 27.1 32.6 VBG HCO3 33 H 36 H Sodium Potassium Chloride Carbon Dioxide BUN Creatinine Estimated Creat Clear Estimated GFR Glucose Calcium C-Reactive Protein 09/01/21 09/01/21 06:37 06:37 WBC RBC Hgb Hct MCV MCH MCHC RDW Coeff of Betty Plt Count Neut % (Auto) Lymph % (Auto) [place] % (Auto) Eos % (Auto) Baso % (Auto) Neut # (Auto) Lymph # (Auto) [place] # (Auto) Eos # (Auto) Baso # (Auto) Abs Immat Gran (auto) INR 1.48 H VBG pH VBG pCO2 VBG pO2 VBG HCO3 Sodium 141 Potassium 3.7 Chloride 105 Carbon Dioxide 34 H BUN 22 Creatinine 0.8 Estimated Creat Clear 77.79 Estimated GFR 87 Glucose 114 Calcium 8.4 C-Reactive Protein 18.8 H
--- NOTE | 2021-09-01 14:18 | PC.SOCIAL ---
Discharge plan: REceived call back from [facility] Marilee, stating they will not know until tomorrow if there will be an available bed for short term rehab. Marilee requested a call back tomorrow. Spoke with [facility]. They will be able to admit pt for short term rehab if he is no longer requiring self-suctioning at discharge. Met with pt and dtr who state [facility] is first choice but that the [facility] would be second choice for short term rehab at discharge. poultry farm worker to follow up as needed.
[2021-09-01] MEDS: LACTATED RINGERS 1000 ML 1,000 ML 75 ML IV (14:20)
[2021-09-01] MEDS: ACETAMINOPHEN 325 MG TABLET 650 MG PO ×2 (15:33→20:01)
--- NOTE | 2021-09-01 16:26 | PC.NURSE ---
Pt pleasant and cooperative. Alert and Oriented x3. Oxygen saturations low to mid 90's on 1L O2 . Up SBA with walker and tolerating well, Pt. uses call light appropriately to ambulate to BR. PRN Tylenol given for pain and elevated temp. Pt. administered sublingual Atropine Sulfate @1534 w/pt. reporting relief. Dressing to neck is CDI changed at 1500. Pt. still is spitting some of his secretions out. Pt denies N/V, SOB, and CP. Pt. has been NPO per speech for video swallow test on 09/03/21 @1115. New IV in right arm 24 patent and intact.
[2021-09-01] MEDS: WARFARIN 3 MG TABLET 6 MG PO (17:30)
[2021-09-01] MEDS: 0.9 % SODIUM CHLORIDE 250 ml IV (17:33)
[2021-09-02] VITALS (11 sets, daily range): BP systolic 118–159; BP diastolic 59–74; PULSE 72–93; RESP 16–24; TEMP 36.6–36.8; O2SAT 90–95
[2021-09-02] MEDS: LACTATED RINGERS 1000 ML 1,000 ML 75 ML IV (02:02)
--- NOTE | 2021-09-02 03:53 | PC.NURSE ---
Pt rested well this night. Pain controlled. Pt up SBA with walker. NC had between 0.5 L and 1 L during sleep to maintain Sats in the low 90s. LS course and gargling. VS unremarkable. Pt pleasant and cooperative and oriented x3.
[2021-09-02] MEDS: PIPERACILLIN/TAZOBACTAM 3.375 GM in 0.9 % SODIUM CHLORIDE Mini-bag 100 ML IVPB (04:39)
[2021-09-02 07:38] LABS: Basophils Absolute Auto 0.02 K/uL (0.00-0.30); Basophils Percent Auto 0.2 % (0.0-3.0); Eosinophils Absolute Auto 0.44 K/uL (0.00-0.50); Eosinophils Percent Auto 4.8 % (0.0-7.0); Hematocrit 37.7 % (37.0-53.0); Hemoglobin* 12.8 gm/dL (13.5-17.5); Immature Granulocytes Abs Auto 0.07 K/uL (0.00-0.30); Lymphocytes Percent Auto 7.2 % (20-44); Mean Corpuscular HGB Conc 34 gm/dL (32-36); Mean Corpuscular Hemoglobin 33 pg (26-34); Mean Corpuscular Volume 97 fL (80-100); Monocytes Percent Auto 8.8 % (0.0-11.0); Neutrophils Percent Auto 78.2 % (42.0-72.0); Platelet Count* 234 K/uL (140-440); RDW Coefficient of Variation % 12.5 % (11.5-15.5); White Blood Count* 9.14 K/uL (4.50-11.00)
[2021-09-02 07:41] LABS: Slide Review Reflex No
[2021-09-02 07:56] LABS: Chloride* 102 mmol/L (96-114); Potassium* 3.5 mmol/L (3.6-5.1); Sodium* 139 mmol/L (135-149)
[2021-09-02 07:57] LABS: INR 1.63 (0.91-1.10); Prothrombin Time 19.7 Seconds
[2021-09-02 07:58] LABS: Creatinine* 0.9 mg/dL (0.5-1.5); Est. Creatinine Clearance* 77.79; Estimated Glomerular Filt Rate 84 ml/min
[2021-09-02 07:59] LABS: Blood Urea Nitrogen* 22 mg/dL (7-30); Carbon Dioxide* 35 mmol/L (20-32); Glucose* 86 mg/dL (60-115)
[2021-09-02 08:00] LABS: Calcium* 8.3 mg/dL (8.4-10.6)
[2021-09-02 08:17] LABS: C Reactive Protein* 19.4 mg/dL (0.5-1.0)
--- NOTE | 2021-09-02 09:33 | CRLHL7_ITS ---
For Patients: As a result of the Century Cures Act, medical imaging exams and procedure reports are released immediately into your electronic medical record. You may view this report before your referring provider. If you have questions, please contact your health care provider. INDICATION: Aspiration pneumonia concern. TECHNIQUE: Chest 2 views. COMPARISON: 08/31/2021. FINDINGS: Cardiovascular and mediastinum: Heart size and vasculature are normal in caliber and appearance. Lungs and pleural spaces: Stable blunting of the bilateral costophrenic angles with mild interstitial prominence. No acute airspace opacities. No large pleural effusion or pneumothorax. Bones and soft tissues: No significant findings. IMPRESSION: Stable exam with blunting of the costophrenic angles and mild nonspecific interstitial prominence. No acute abnormality. Dictated by Isidro Barragan MD @ 09/02/2021 10:46:59 AM (Electronically Signed)
[2021-09-02] MEDS: METOPROLOL SUCCINATE (XL) 50 MG TAB 75 MG PO (09:37)
[2021-09-02] MEDS: ALBUTEROL SULFATE 2.5 MG/3 ML VIAL.NEB NEB ×4 (09:37→20:48)
[2021-09-02] MEDS: BUDESONIDE 0.5 MG/2ML NEB NEB ×2 (09:37→21:18)
[2021-09-02] MEDS: ACETAMINOPHEN 325 MG TABLET 650 MG PO ×2 (10:11→18:00)
--- NOTE | 2021-09-02 10:29 | P.IMPN_ITS ---
Progress Note: A&P Assessment and plan (1) Sublingual abscess: Problem details: Status post I&D . Will stop IV Zosyn. Considering negative cultures and appearance of wound, and in discussion with ENT, We will start oral Augmentin and Flagyl. My worry is that the CRP is up trending. Continue to monitor. ENT will be here likely over the lunch hour to pull his last drain and offer assistance in care plan. Status: Acute (2) Aspiration, chronic pulmonary: Problem details: Barium swallows planned for tomorrow. Speech path ryan, bedside, was reviewed from yesterday. He is in NPO status. He is receiving 75 mL an hour of LR. There are not a lot of great options for chronic aspiraters. I am hopeful that when his inflammation and surgical dressing and wound have all been removed he w ill be able to flex more at the neck that will assist in his swallowing. Following a thickened dysphagia diet may be of benefit. I do not think he would be a surgical candidate for any gastrotomy procedures. It is likely he will be dealing with chronic aspiration for the long-term. Status: Acute (3) Paroxysmal atrial fibrillation: Status: Acute Assessment and Plan: rate controlled on Lovenox. (4) COPD (chronic obstructive pulmonary disease): Status: Acute Assessment and Plan: Mild hypoxic likely from chronic COPD with superimposed chronic aspiration with acute illness. Due to monitor. Checking venous blood gas daily. Subjective Date Seen: 09/02/21 Interval history: gastrostomy tube placement with a jejunal extension tube (J-tube), surgical insertion of a feeding tube into the small bowel, or percutaneous endoscopic jejunostomy Daily Progress Note - Hospital Medicine #:6 CC: Continued troubles with swallowing, drain placed in the submental location. Status post I&D of submental abscess OVERNIGHT UPDATES FROM STAFF & MED, LAB, IMAGING UPDATES no significant change overnight. He has been NPO since 10:00 a.m. yesterday. He continues to be on oxygen, 1 L, for mild hypoxia likely related to chronic aspiration. I reviewed the speech path evaluation from yesterday that demonstrated significant issues with any type of swallowing attempt. It appears the ordered sublingual atropine is helpful for his secretions. he denies pain. As the hospitalist Service, I did round on him on the and by my comparison his wound looks much better. He is down to 1 drain. He has been continued on Zosyn. 159/74. Pulse 78. Afebrile. 1 L nasal cannula oxygen for sats to 94-95%. This morning's BMP shows a very mild hypokalemia. Persistent hypercapnia. Known COPD. A CRP that is trending up. Initially his CRP was 16, this down trended nicely until 3 days ago and now it is up trending. This makes me concerned that the CRP it initially represented his infection but now may represent an aspiration pneumonia. Procalcitonin is pending. Chest x-ray was updated this morning, two view down in Radiology. No new findings consistent with aspiration pneumonia, stable chronic findings. gram stain and cultures were reviewed from the surgical I&D site. These were negative. He has been on Zosyn since admission. Review of Systems: See subjective Cardiac: No new chest pain/pressure/palpitations. Respiratory: no new dyspnea. GI: No abdominal bloating continued dysphagia. Objective: Vitals: see above Lungs: Considerable upper airway congestion with inspiration. No wheezing. Cardiac: S1S2. ENT: Much improved wound appearance. Much less inflammation and induration noted. Single drain now placed, however surgical dressing is relatively dry with very little seepage. Lymphadenopathy is much improved. - His voice is still wet sounding. He coughs frequently. Disposition/Potential discharge - Likely to return to previous living situation. Total time is 35 minutes with greater than 50% spent in counseling and coordination of care. Exam Const: Vital Signs, click to edit/add: Vital Signs - 24 hr 09/01/21 12:00 09/01/21 14:51 09/01/21 15:33 Temperature 99.4 F 100.0 F H Pulse Rate [Left P ulse Oximeter] 93 96 Respiratory Rate 22 22 Blood Pressure [Ri t Arm] 156/83 H Pulse Oximetry 92 91 09/01/21 16:00 09/01/21 19:35 09/01/21 20:01 Temperature 98.3 F 97.6 F 97.6 F Pulse Rate [Left P ulse Oximeter] 98 81 Respiratory Rate 22 16 Blood Pressure [Ri ght Arm] 141/78 H 138/71 Pulse Oximetry 93 92 09/01/21 22:46 09/01/21 22:50 09/01/21 22:52 Temperature 97.5 F L Pulse Rate [Left P ulse Oximeter] 81 81 Respiratory Rate 16 16 Blood Pressure [Ri ght Arm] 129/55 L Pulse Oximetry 94 94 09/02/21 02:35 09/02/21 07:00 Temperature 97.8 F 97.9 F Pulse Rate [Left P ulse Oximeter] 74 78 Respiratory Rate 16 16 Blood Pressure [Ri ght Arm] 124/62 159/74 H Pulse Oximetry 94 95 Labs Labs: Laboratory Results - last 24 hr 08/28/21 09/02/21 09/02/21 08:15 07:14 07:14 WBC 9.14 RBC 3.90 L Hgb 12.8 L Hct 37.7 MCV 97 MCH 33 MCHC 34 RDW Coeff of Betty 12.5 Plt Count 234 Neut % (Auto) 78.2 H Lymph % (Auto) 7.2 L [place] % (Auto) 8.8 Eos % (Auto) 4.8 Baso % (Auto) 0.2 Neut # (Auto) 7.10 H Lymph # (Auto) 0.70 L [place] # (Auto) 0.80 Eos # (Auto) 0.44 Baso # (Auto) 0.02 Abs Immat Gran (auto) 0.07 INR 1.63 H Sodium 138 Potassium 3.3 L Chloride 103 Carbon Dioxide 32 BUN 25 Creatinine 0.9 Estimated Creat Clear 75.19 Estimated GFR 84 Glucose 115 Calcium 8.1 L C-Reactive Protein 16.6 H 09/02/21 07:14 WBC RBC Hgb Hct MCV MCH MCHC RDW Coeff of Betty Plt Count Neut % (Auto) Lymph % (Auto) [place] % (Auto) Eos % (Auto) Baso % (Auto) Neut # (Auto) Lymph # (Auto) [place] # (Auto) Eos # (Auto) Baso # (Auto) Abs Immat Gran (auto) INR Sodium 139 Potassium 3.5 L Chloride 102 Carbon Dioxide 35 H BUN 22 Creatinine 0.9 Estimated Creat Clear 77.79 Estimated GFR 84 Glucose 86 Calcium 8.3 L C-Reactive Protein 19.4 H
[2021-09-02 11:12] LABS: Procalcitonin* 0.13 ng/mL (<0.50)
[2021-09-02 11:12] LABS: Procalcitonin* 0.11 ng/mL (<0.50)
[2021-09-02] MEDS: 5 % DEX/0.45 SOD CHL+KCL20 mEq 1,000 ML 75 ML IV ×2 (11:30→23:28)
[2021-09-02] MEDS: METOPROLOL SUCCINATE (XL) 25 MG TAB PO (11:39)
--- NOTE | 2021-09-02 12:05 | NUTR.NU ---
Nutrition Update: RDN following patient. Has been NPO since yesterday per Speech Therapy recommendations (Speech Evaluation competed 09/01/21). Barium swallow scheduled for 09/03. Minimal oral intake noted since admit on 08/28/21 (day 7). No nutrition interventions at this time - will wait for Barium swallow results. RDN will continue to monitor and follow-up prn.
[2021-09-02 15:37] LABS: C.Difficile Negative (Negative); CDIFFEPI 027 PRESUMPTIVE NEGATIVE (Negative)
[2021-09-02] MEDS: WARFARIN 3 MG TABLET 6 MG PO (17:21)
[2021-09-02] MEDS: AMOXICILLIN/CLAVULANATE 875 mg/125 mg TABLET PO (18:03)
--- NOTE | 2021-09-02 18:55 | PC.NURSE ---
Patient pleasant and cooperative. Verbalizes feeling much better today vs. yesterday. Pt has significantly improved from yesterday compared to today. Pt steady on feet with Ax1, walker and GB. Secretions decreased with use of Atropine PRN. Dr. Bangura in to see patient at bedside today and removed last gardenia drain. Open wound distal to chin, draining scant amt of serosanguineous drainage. Order obtained for wet to dry dressings PRN. This was changed today - saline soaked 4x4 gauze with only a small piece packed in wound to collect drainage. pt reports sore scalp - PM cares done and hair washed by RN. pt reports improved scalp pain. Otherwise pain very minimal and controlled with Tylenol. Pt tapered off 02 this afternoon after Xray 2view. Xray showed no new signs of aspiration. Pt able to advance diet to 4 -dysphagia diet. Tolerated half ensure with vanilla ice cream and verbalized, it doesn't hurt at all to swallow. no coughing or difficulty with swallowing. Pt NPO at midnight for barium swallow tomorrow around 1100. Family in to visit this evening. Mocha done by OT with score 23. BG remain stable with checks Q6H. Buttocks reddened - pt in bed on right side to relieve pressure. Report given to JULES Bynum.
--- NOTE | 2021-09-02 19:26 | PC.NURSE ---
Per Dr. DE PAZ to Stop Blood Glucose Checks
[2021-09-03 02:45] VITALS: BP 163/98; PULSE 81; RESP 16; TEMP 36.6; O2SAT 91
--- NOTE | 2021-09-03 03:56 | PC.NURSE ---
Pt rested well this night. Was more comfortable in chair. Remained on RA all night with sats @ 90. Pt up and voiding several times. Pain controlled. SBA with walker. Secretions much decreased compared to previous night.
[2021-09-03 07:31] LABS: HCO3 VBG 36 mmol/L (21-28); Lactate* 0.9 mmol/L (0.5-1.9); PCO2 VBG 59 mmHG (40-50); PO2 VBG 22.6 mmHG (25-47); pH VBG 7.397 (7.32-7.43)
[2021-09-03 07:40] LABS: Hematocrit 39.1 % (37.0-53.0); Hemoglobin* 12.9 gm/dL (13.5-17.5); Mean Corpuscular HGB Conc 33 gm/dL (32-36); Mean Corpuscular Hemoglobin 32 pg (26-34); Mean Corpuscular Volume 95 fL (80-100); Platelet Count* 258 K/uL (140-440); White Blood Count* 7.58 K/uL (4.50-11.00)
[2021-09-03 07:45] LABS: Slide Review Reflex No
[2021-09-03 07:54] LABS: Chloride* 102 mmol/L (96-114); Potassium* 3.8 mmol/L (3.6-5.1); Sodium* 138 mmol/L (135-149)
[2021-09-03 07:56] LABS: Bilirubin Total* 0.8 mg/dL (0.1-1.5); Creatinine* 0.7 mg/dL (0.5-1.5); Est. Creatinine Clearance* 77.79; Estimated Glomerular Filt Rate 90 ml/min
[2021-09-03 07:57] LABS: Alanine Aminotransferase* 28 U/L (4-50); Alkaline Phosphatase* 55 U/L (40-150); Aspartate Amino Transferase* 43 U/L (12-35); Blood Urea Nitrogen* 19 mg/dL (7-30); Carbon Dioxide* 35 mmol/L (20-32); Glucose* 103 mg/dL (60-115); Total Protein* 6.2 g/dL (6.0-8.3)
[2021-09-03] MEDS: AMOXICILLIN/CLAVULANATE 875 mg/125 mg TABLET PO ×2 (07:57→17:29)
[2021-09-03 07:58] LABS: Calcium* 8.2 mg/dL (8.4-10.6); Magnesium* 2.1 mg/dL (1.5-2.6)
[2021-09-03 08:04] LABS: NT Pro B Type NatriureticPept* 1830 PG/mL (0-450)
[2021-09-03 08:07] LABS: Troponin I* 0.02 ng/mL (0.01-0.04)
[2021-09-03 08:08] LABS: INR 1.94 (0.91-1.10); Prothrombin Time 22.5 Seconds
[2021-09-03 08:11] LABS: Procalcitonin* 0.11 ng/mL (<0.50)
[2021-09-03 08:15] LABS: C Reactive Protein* 14.4 mg/dL (0.5-1.0)
[2021-09-03 08:24] VITALS: BP 157/79; PULSE 79; RESP 20; TEMP 36.8; O2SAT 94
[2021-09-03] MEDS: METOPROLOL SUCCINATE (XL) 100 MG TAB PO (08:59)
[2021-09-03] MEDS: SENNOSIDES 1 TAB TABLET PO (08:59)
[2021-09-03] MEDS: ALBUTEROL SULFATE 2.5 MG/3 ML VIAL.NEB NEB ×4 (09:00→20:27)
[2021-09-03] MEDS: BUDESONIDE 0.5 MG/2ML NEB NEB ×2 (09:08→20:46)
--- NOTE | 2021-09-03 10:58 | PC.SOCIAL ---
Social work: [facility] for [facility] Faxed information and awaiting call back. [facility] is families first choice for placement. [facility] could also accept pt for admit tomorrow if [facility] declines. Updated sonGlenn, . trail maintenance worker to follow up as needed.
--- NOTE | 2021-09-03 11:15 | CRLHL7_ITS ---
For Patients: As a result of the Century Cures Act, medical imaging exams and procedure reports are released immediately into your electronic medical record. You may view this report before your referring provider. If you have questions, please contact your health care provider. INDICATION: Possible aspiration. TECHNIQUE: Modified barium swallow performed in conjunction with speech therapy. FINDINGS: The patient tolerated all preparations of barium well. No aspiration. No penetration. No holdup of barium. 1.51 minute fluoroscopy time utilized. IMPRESSION: Normal modified barium swallow. Dictated by Dav Camarena MD @ 09/03/2021 1:04:38 PM (Electronically Signed)
[2021-09-03 11:50] VITALS: BP 142/68; PULSE 93; RESP 18; TEMP 36.7; O2SAT 94
[2021-09-03] MEDS: 5 % DEX/0.45 SOD CHL+KCL20 mEq 1,000 ML 75 ML IV (12:43)
--- NOTE | 2021-09-03 14:41 | PM.IMPN1 ---
Progress Note: A&P Assessment and plan (1) Sublingual abscess: Status: Acute Assessment and Plan: Status post I& D. Improving daily. Wound is open to heal from secondary intention. Drains are removed. On oral Flagyl and Augmentin. Is significantly improved his oral swallowing function. (2) Aspiration, chronic pulmonary: Problem details: Status: Acute Assessment and Plan: It has been a true pivot in our direction of his care. His barium swallow today is quite reassuring. I suspect that the aspiration and or abnormal swallowing mechanics that we were noting earlier in the week were likely from the acute infection, drains and inflammation. Now the drains are removed, and the infection is resolving he really seems to be improving. (3) Paroxysmal atrial fibrillation: Status: Acute Assessment and Plan: Stable (4) COPD (chronic obstructive pulmonary disease): Status: Acute Assessment and Plan: Stable Plan Generally the plan is to transfer him to acute rehab, either [facility] or [facility] tomorrow. Time will tell along with therapies if he can tolerate a regular diet or what level of dysphagia diet he must stay on to avoid regurgitation, coughing and aspiration. Subjective Date Seen: 09/03/21 Interval history: Daily Progress Note - [facility] Medicine Day #:7 CC: Continued - but lesss - troubles with swallowing, drain placed in the submental location. Status post I&D of submental abscess OVERNIGHT UPDATES FROM STAFF & MED, LAB, IMAGING UPDATES did well overnight. he tolerated ensure with ice cream. on room air! The speech path evaluation is incongruent with the barium swallow. Barium swallow today showed that there was no significant aspiration with any level of thickness. It appears the ordered sublingual atropine is helpful for his secretions. I suspect his submental abscess, dressing, drains all were affecting his lips and tongue movements. This has improved dramatically with removal of dressings and drains. Denies pain. He is very encouraged by today's findings. We switched him to oral Augmentin and Flagyl from his Zosyn. His wound looks improved. FINDINGS: The patient tolerated all preparations of barium well. No aspiration. No penetration. No holdup of barium. 1.51 minute fluoroscopy time utilized. IMPRESSION: Normal modified barium swallow. Vitals reviewed. Review of Systems: See subjective Cardiac: No new chest pain/pressure/palpitations. Respiratory: no new dyspnea. GI: No abdominal bloating less dysphagia. Taking his pills orally and hole. Tolerating a 2nd diet. Objective: Vitals: see above Lungs: Considerable upper airway congestion with inspiration. No wheezing. Cardiac: S1S2. ENT: Much improved wound appearance. Much less inflammation and induration noted. Single drain now removed, and there is less seepage from the open wound. His voice sounds stronger and less wet. Disposition/Potential discharge - Likely to transfer to acute rehab downstairs. Total time is 35 minutes with greater than 50% spent in counseling and coordination of care. Exam Const: Vital Signs, click to edit/add: Vital Signs - 24 hr 09/02/21 15:00 09/02/21 19:00 09/02/21 19:32 Temperature 97.8 F 97.8 F Pulse Rate [Left P ulse Oximeter] 72 90 Respiratory Rate 24 16 Blood Pressure [Ri ght Arm] 118/72 Pulse Oximetry 90 09/02/21 22:19 09/02/21 22:59 09/02/21 23:00 Temperature 97.9 F Pulse Rate [Left P ulse Oximeter] 91 91 Respiratory Rate 16 16 Blood Pressure [Ri ght Arm] 151/59 H Pulse Oximetry 90 90 09/03/21 02:45 09/03/21 08:24 09/03/21 11:50 Temperature 98 F 98.3 F 98.1 F Pulse Rate [Left P ulse Oximeter] 81 79 93 Respiratory Rate 16 20 18 Blood Pressure [Ri ght Arm] 163/98 H 157/79 H 142/68 H Pulse Oximetry 91 94 94 Labs Labs: Laboratory Results - last 24 hr 09/02/21 09/03/21 09/03/21 08:49 06:43 06:43 WBC 7.58 RBC 4.10 L Hgb 12.9 L Hct 39.1 MCV 95 MCH 32 MCHC 33 Plt Count 258 INR VBG pH VBG pCO2 VBG pO2 VBG HCO3 Sodium 138 Potassium 3.8 Chloride 102 Carbon Dioxide 35 H BUN 19 Creatinine 0.7 Estimated Creat Clear 77.79 Estimated GFR 90 Glucose 103 Lactate Calcium 8.2 L Magnesium 2.1 Total Bilirubin 0.8 AST 43 H ALT 28 Alkaline Phosphatase 55 Troponin I 0.02 C-Reactive Protein 14.4 H NT-Pro-B Natriuret Pep 1830 H Total Protein 6.2 Albumin 3.0 L Procalcitonin 0.11 TSH Stl C.difficile Tox PCR Negative St C. diff Tox Epid 027 PRESUMPTIVE NEGATIVE 09/03/21 09/03/21 09/03/21 06:43 06:43 06:43 WBC RBC Hgb Hct MCV MCH MCHC Plt Count INR 1.94 H VBG pH 7.397 VBG pCO2 59 H VBG pO2 22.6 L VBG HCO3 36 H Sodium Potassium Chloride Carbon Dioxide BUN Creatinine Estimated Creat Clear Estimated GFR Glucose Lactate 0.9 Calcium Magnesium Total Bilirubin AST ALT Alkaline Phosphatase Troponin I C-Reactive Protein NT-Pro-B Natriuret Pep Total Protein Albumin Procalcitonin TSH 1.010 Stl C.difficile Tox PCR St C. diff Tox Epid 027
--- NOTE | 2021-09-03 15:12 | PC.NURSE ---
Shift Summary: Patient pleasant and cooperative. Up walking in halls with one assist and walker x2. Tolerating clear liquids now. States mild pain in jaw radiating up to ear, denies need for pain medication. Continues to maintain o2 sats >90% on RA.
[2021-09-03 15:15] VITALS: BP 146/71; PULSE 80; RESP 16; TEMP 36.9; O2SAT 93
--- NOTE | 2021-09-03 16:43 | PC.SOCIAL ---
Discharge plan: Faxed requested information to Jackie at the [facility] for evaluation for admit. Received call back from RNJackie, stating they can not accept pt for admit. Received call from son, Glenn, stating pt has decided his first choice for placement is [facility]. Spoke with DON at [facility] who confirmed they can accept pt at discharge for short term rehab. Met with pt, and son Glenn in room to confirm this plan. They are pleased with this plan and are aware of how to contact social work assistant with any questions. joinery factory worker to follow up as needed.
[2021-09-03 19:00] VITALS: BP 158/80; PULSE 84; RESP 16; TEMP 36.8; O2SAT 93
[2021-09-03] MEDS: ACETAMINOPHEN 325 MG TABLET 650 MG PO (22:15)
--- NOTE | 2021-09-03 22:39 | PC.NURSE ---
Shift [id number]- Patient denies pain throughout shift with exception to this evening for chin pain- tylenol given. He is up with assist of 1, walker and gait belt and tolerates well. He eats mashed potatoes and gravy and bites of oatmeal without issue. He also tolerates swallowing meds with water. Wound to chin is open to air without drainage.
[2021-09-04 00:45] VITALS: BP 138/65; PULSE 78; RESP 22; TEMP 36.5; O2SAT 94
[2021-09-04] MEDS: 5 % DEX/0.45 SOD CHL+KCL20 mEq 1,000 ML 75 ML IV (02:06)
[2021-09-04 03:30] VITALS: BP 147/74; PULSE 74; RESP 18; TEMP 36.9; O2SAT 93
--- NOTE | 2021-09-04 06:53 | PC.NURSE ---
END OF SHIFT NOTE: PT PLEASANT AND COOPERATIVE. VSS AND WNL ON RA. AFEBRILE. POSTERIOR CRACKLES NOTED THROUGHOUT UPON AUSCULTATION. PRODUCTIVE COUGH WITH THICK CLEAR/YELLOW SPUTUM. WOUND TO CHIN IS RL WITH NO DRAINAGE NOTED. PT DENIES CHEST PAIN, SOB, N/V. PT AMBULATES WITH WALKER, GB, A1/SBA. BED/CHAIR ALARM IN PLACE FOR FALL PRECAUTION. USES CALL LIGHT APPROPRIATELY.?
[2021-09-04 07:46] LABS: INR 1.75 (0.91-1.10); Prothrombin Time 20.8 Seconds
[2021-09-04 09:30] VITALS: BP 134/80; PULSE 74; PULSE 80; RESP 18; TEMP 36.6; O2SAT 93
[2021-09-04] MEDS: BUDESONIDE 0.5 MG/2ML NEB NEB (10:29)
[2021-09-04] MEDS: AMOXICILLIN/CLAVULANATE 875 mg/125 mg TABLET PO (10:29)
[2021-09-04] MEDS: ALBUTEROL SULFATE 2.5 MG/3 ML VIAL.NEB NEB (10:29)
[2021-09-04] MEDS: METOPROLOL SUCCINATE (XL) 100 MG TAB PO (10:29)
--- NOTE | 2021-09-04 10:50 | PC.SOCIAL ---
Discharge plan: Pt will be admitted to [facility] today at 1:00pm. PAS completed and submitted [id number]. Pt was provided with copy of Medicare Rights form and declined copy stating he agrees with discharge as planned today.
--- NOTE | 2021-09-04 14:35 | PM.DS1 ---
DS: Providers Provider Date Seen: 09/04/21 Date of admission: 08/28/21 14:51 Primary care physician: Lee Broderick MD Admitting Clinician: Elise Ibanez MD Consults: Rowdy Bangura MD ENT 08/30/21 11:50 Consult to Occupational Therapy [CONS] Routine Comment: Reason(s) for OT Consult:: Evaluate and Treat Any Restrictions?:: No Restrictions Consult to Physical Therapy [CONS] Routine Comment: Reason(s) for PT Consult:: Evaluate Ambulation Any Restrictions?:: No Restrictions Consult to Speech Therapy [CONS] Routine Comment: Reason(s) for Speech Consult:: Speech/Swallowing Eval Attending Physician on discharge: Xochitl Day MD [place] [facility] Date of Discharge: 09/04/21 DS: Diagnosis Discharge Diagnosis (1) Sublingual abscess: Status: Acute (2) Aspiration, chronic pulmonary: Status: Acute Problem details: (3) Paroxysmal atrial fibrillation: Status: Acute (4) COPD (chronic obstructive pulmonary disease): Status: Acute DS: Summary Hospital Course Hospital Course: HOSPITALIST DISCHARGE SUMMARY ATTENDING PHYSICIAN: Xochitl Day MD FINAL DIAGNOSIS: Submental abscess with I and D Short-term swallowing difficulty HOSPITAL FOLLOWUP ISSUES: 1. Risk for aspiration. The presentation of the abscess and status post I&D with drain placement patient had significant trouble with oral secretions, swallowing. This seemed to self limited. We released him on a regular consistency diet. If there is evidence of aspiration we should increase the consistency his food immediately and resume coaching for limiting aspiration. 2. ENT follow-up. Patient had been on oral antibiotic at discharge. This was going to be 5 days of b.i.d. Augmentin and Flagyl. Previous to this he had been on IV broad-spectrum. His wound was left open to secondary intention closure. No packing or dressing. ENT clinic follow-up was arranged. REFERRALS WHILE ADMITTED: ENT REFERRALS AFTER DISCHARGE: [facility], short-term rehab BRIEF HOSPITAL COURSE: This is an 86-year-old who presented to our ED with a submental abscess and bleeding. Please see the ER notes, ENT consultation and OR note for further detail. He did well with surgery the abscess was evacuated and drains were placed. He was on IV Zosyn until we transitioned him to oral Augmentin and Flagyl. Initially he was using a Yankauer suction for all of his secretions and have significant difficulty with swallowing. This was quickly alleviated with coaching, sublingual atropine and reduction of inflammation from the infection. Much to our surprise, his barium swallow was totally normal and by the end of our hospital stay he was tolerating his oral medications and a normal diet. However given his comorbidities, and this recent infection we recommended short-term rehab and he was accepted to the [facility] for short-term rehab. VITAL SIGN, MEDICATION, LAB/MICRO, IMAGING SUMMARY (full details available in account tabs or by records request) 147/74 Pulse 74 Afebrile Room air His INR was 1.75 on the day of discharge. This is for VTE prophylaxis secondary to atrial fibrillation. He can restart his warfarin at his previous dose. INR should be checked weekly. He has some baseline CO2 retention secondary to chronic COPD, this was relatively stable and unchanged during admission. He had diarrhea while admitted, likely related to his antibiotic dosing. His C diff checked on 09/02 was negative. Cultures taken in the OR from his abscess ultimately had no growth. DISCHARGE MEDICATIONS: See Reconciled list REVIEW OF SYSTEMS No new chest pain or dyspnea Pain controlled No voiding difficulties Tolerating diet challenge PHYSICAL EXAM: CONSTITUTIONAL: Chronically ill-appearing, however much improved from when I 1st met him. VITAL SIGNS: see record. HEENT: Submental wound is open and has minimal drainage. Tissue looks healthy. Cavity is closing by secondary intention and is smaller every day. No odor or discharge noted. Currently not packed and not addressed. NECK: No JVD. No carotid bruit, no thyromegaly, no adenopathy. CHEST: Clear to auscultation bilaterally. HEART: S1 and S2 normal. Edema minimal ABDOMEN: Soft, nontender. Normal bowel sounds. MUSCULOSKELETAL: No gross joint deformity or swelling. NEURO: Cranial nerves intact. Grossly intact. No asymmetric findings. SKIN: No rashes, petechiae, concerning changes PSYCHIATRIC: Mood euthymic. DISPOSITION: Short-term E Time spent on discharge 37 minutes. Status at Discharge Functional status at discharge: uses cane/walker Overall status at discharge: patient is not back to baseline Time Spent with Patient Time attestation: Total time spent providing and/or coordinating discharge services: Time spent: Greater than 30 minutes Exam Const: Vital Signs, click to edit/add: Vital Signs - 24 hr 09/03/21 15:15 09/03/21 19:00 09/04/21 00:45 Temperature 98.4 F 98.2 F 97.7 F Pulse Rate [Left P ulse Oximeter] 80 84 78 Respiratory Rate 16 16 22 Blood Pressure [Ri ght Arm] 146/71 H 158/80 H 138/65 Pulse Oximetry 93 93 94 09/04/21 03:30 Temperature 98.5 F Pulse Rate [Left P ulse Oximeter] 74 Respiratory Rate 18 Blood Pressure [Ri ght Arm] 147/74 H Pulse Oximetry 93 DS: Data Data Completed and Pending Labs on day of discharge: Labs from last 24 hours 09/04/21 07:04 INR 1.75 H Preliminary micro results at discharge 08/28/21 13:30 Aerobic Culture - Preliminary Neck Gram positive cocci Discharge Plan Discharge Disposition: [facility] Date of Admission: 08/28/21 14:51 Attending Provider on Discharge: Xochitl Day Primary Care Provider: Lee Broderick Condition: Improved Anticipated Discharge Date/Time: 09/04/21 11:04 Discharge Medications: New guaifenesin 100 mg/5 mL Liquid 100 - 200 mg PO Q4H PRN (Reason: Cough) Qty: 320 0RF atropine [Isopto Atropine] 1 % Drops 1 drp sublingual Q2H PRN (Reason: excessive secretions) Qty: 30 0RF amoxicillin-pot clavulanate 875-125 mg Tablet 875 mg PO BIDWM Qty: 10 0RF metronidazole 500 mg tablet 500 mg PO Q12H Qty: 10 0RF Continued atorvastatin 40 mg tablet 40 mg PO HS 0RF fluticasone propion-salmeterol 113-14 mcg/actuation aerosol powdr breath activated 1 inh INHALATION BID 0RF lisinopril 20 mg tablet 20 mg PO DAILY 0RF metoprolol succinate 50 mg tablet extended release 24 hr 75 mg PO DAILY 0RF mirtazapine 7.5 mg tablet 7.5 mg PO HS 0RF omeprazole 20 mg capsule,delayed release(DR/EC) 20 mg PO DAILY 0RF tamsulosin 0.4 mg capsule 0.8 mg PO DAILY 0RF triamterene-hydrochlorothiazid 37.5-25 mg capsule 1 cap PO DAILY 0RF Label Comments: TAKE 1 CAPSULE BY MOUTH EVERY MORNING warfarin 2 mg tablet 4 - 6 mg PO DAILY 0RF Rx Instructions: 6 MG ON TUESDAY AND 4 MG OTHER DAYS OR DIRECTED Discontinued amoxicillin 500 mg capsule 500 mg PO QID 0RF hydrocodone-acetaminophen 5-325 mg tablet 1 tab PO Q6H PRN0RF metronidazole 500 mg tablet 500 mg PO QID 0RF Discharge Orders: Discharge Order (Routine); Ordered 09/04/21 Ordered By: Xochitl Day Activity Restrictions/Additional Instructions: See Dr. Bangura 7-10 days Activity Level: Activity as Tolerated Discharge Diet: Regular Diet Detail: there was concern early on about aspiration. barium swallow normal. if desires can thicken but not required. Follow Up Appointments: Lee Broderick MD [Primary Care Provider] - (ok to schedule out 4-6 weeks since going to rehab downstairs) Rowdy Bangura MD [Staff Physician] - 09/09/21 11:00 am (See Dr. Bangura in 7-10 days)
--- NOTE | 2021-09-04 15:18 | PC.NURSE ---
ADMIT: Resident was admitted from [facility] today for cellulitis and abscess of the mouth. Qualifying hospital stay was 08/28/21-09/04/21. Today will be the first day of coverage. Resident and Jackelyn notified of coverage due to nursing home and therapy needs. Resident will receive wound monitoring, pain medication, oral antibiotics, and PT/OT 5x/wk until resident meets goals.
== END 2021-09-04 13:00 | DRG 863 ==
LOC: ED 11:32 → SS 11:57 → MEDSURG 14:12 → SS 15:58 → MEDSURG 15:58
PROVIDERS: Family Medicine; Admitting Provider Family Medicine; Emergency Provider Family Medicine; PCP Family Medicine; Visit Provider Otolaryngology
PROC: 0J9400Z Drainage of Right Neck Subcutaneous Tissue and Fascia with Drainage Device, Open Approach (ICD-10-PCS; principal; 2021-08-28 12:00)
DX: T81.40XA Infection following a procedure, unspecified, initial encounter (principal); L02.11 Cutaneous abscess of neck; L02.01 Cutaneous abscess of face; E46 Unspecified protein-calorie malnutrition; K12.2 Cellulitis and abscess of mouth; E87.2 Acidosis; K52.1 Toxic gastroenteritis and colitis; Z86.718 Personal history of other venous thrombosis and embolism; Z79.01 Long term (current) use of anticoagulants; I48.0 Paroxysmal atrial fibrillation; I25.10 Atherosclerotic heart disease of native coronary artery without angina pectoris; J44.9 Chronic obstructive pulmonary disease, unspecified; E78.5 Hyperlipidemia, unspecified; Z85.46 Personal history of malignant neoplasm of prostate; B95.7 Other staphylococcus as the cause of diseases classified elsewhere; K04.7 Periapical abscess without sinus; Z95.1 Presence of aortocoronary bypass graft; I11.0 Hypertensive heart disease with heart failure; I50.9 Heart failure, unspecified; R13.10 Dysphagia, unspecified; R26.81 Unsteadiness on feet; R09.02 Hypoxemia; J61 Pneumoconiosis due to asbestos and other mineral fibers; G89.18 Other acute postprocedural pain; G47.00 Insomnia, unspecified; Z87.09 Personal history of other diseases of the respiratory system; H91.10 Presbycusis, unspecified ear; R25.2 Cramp and spasm; Y84.4 Aspiration of fluid as the cause of abnormal reaction of the patient, or of later complication, without mention of misadventure at the time of the procedure; E87.6 Hypokalemia; T36.95XA Adverse effect of unspecified systemic antibiotic, initial encounter
CPT/HCPCS: 00160; 00300; 36415; 70491; 71045; 71046; 74230; 74240; 80048; 80053; 82803; 82947; 83605; 83735; 83880; 84145; 84443; 84484; 85018; 85025; 85027; 85610; 86140; 87186; 87205; 87493; 87635; 92611; 93005; 93306; 94640; 94761; 97110; 97112; 97116; 97162; 97165; 97535; 99100; 99140; 99282; 99285; A9270; J0330; J1100; J1650; J1940; J2060; J2250; J2270; J2405; J2543; J2704; J3010; J3430; J3480; J7030; J7050; J7120; J7626; Q9967

== ENCOUNTER 2021-09-04 12:32 | Inpatient (IN) | payer MEDICARE, BC, SELFPAY ==
[2021-09-04 13:25] VITALS: BP 141/73; PULSE 86; RESP 18; TEMP 37.3; O2SAT 94
--- NOTE | 2021-09-04 13:29 | LTC.ADM ---
LTC Admission Note: o Admit from: Med Surg o Mode of transport: Wheelchair o Accompanied by: Hospital staff o Transferred via: wheelchair o Admitting dx: Abscess mouth/jaw o Mentation: Alert, OX3 o Vital Signs: T-99.1 BP-141/73 P-86 RR-18 02 SAT- 94 o Lung sounds: CLEAR o Overall condition: o Pain: No o Mood/Behavior: No o Wound care: Incision mouth, QUILT MAKER o Assistance level with ADL?s: 1 ASSIST o Mobility: 1 Assist o Eating: Set up
[2021-09-04 15:00] VITALS: BP 158/78; PULSE 80; RESP 18; TEMP 36.6; O2SAT 95
[2021-09-04 16:11] LABS: SARS PCR* Negative SARS-CoV-2 (Negative)
[2021-09-04] MEDS: AMOXICILLIN/CLAVULANATE 875 mg/125 mg TABLET PO (20:49)
[2021-09-04] MEDS: WARFARIN 2 MG TABLET 6 MG PO (20:49)
[2021-09-04] MEDS: ATORVASTATIN CALCIUM 40 MG TABLET PO (20:50)
[2021-09-04] MEDS: metroNIDAZOLE 500 MG TABLET PO (20:50)
[2021-09-04] MEDS: MIRTAZAPINE 15 MG TABLET 7.5 MG PO (20:50)
[2021-09-04 22:28] VITALS: BP 144/78; PULSE 80; RESP 18; TEMP 36.8; O2SAT 95
--- NOTE | 2021-09-04 22:34 | PC.NURSE ---
Admit F/U: Resident A&Ox3. Requested to eat meals in room this evening. Had good appetite and ate 75%. VSS and under vitals tab in intervention. Skin assessment completed by comic writer. Resident has incision on chin that is RL. No s/s of infection or drainage. No c/o pain or discomfort at this time.
[2021-09-04 23:00] VITALS: BP 133/75; PULSE 80; RESP 20; TEMP 37; O2SAT 95
--- NOTE | 2021-09-05 03:38 | PC.NURSE ---
Admission Note VS 98.6, 97924, 80, 20 95% Res resting comfortably,has no c/o pain.Reminded to fall for help. Pleasant and alert to surroundings
[2021-09-05] MEDS: lisinopriL 20 MG TABLET PO (07:37)
[2021-09-05] MEDS: AMOXICILLIN/CLAVULANATE 875 mg/125 mg TABLET PO ×2 (07:37→15:56)
[2021-09-05] MEDS: OMEPRAZOLE 20 MG CAPSULE DR PO (07:37)
[2021-09-05] MEDS: metroNIDAZOLE 500 MG TABLET PO ×2 (07:37→19:56)
[2021-09-05] MEDS: METOPROLOL SUCCINATE (XL) 25 MG TAB 75 MG PO (07:37)
[2021-09-05] MEDS: TRIAMTERENE-HCTZ 37.5-25 MG TB 1 TAB PO (07:39)
[2021-09-05] MEDS: TAMSULOSIN HCL 0.4 MG CAPSULE 0.8 MG PO (07:39)
[2021-09-05 10:00] VITALS: BP 128/68; PULSE 64; TEMP 36.8; O2SAT 95
--- NOTE | 2021-09-05 14:45 | LTC.MCARD ---
LTC Medicare Cardiac Note: o Admission dx:Tooth o Daily Weight: o Daily VS:SEE Worklist o Pulse (rate, rhythm) o Lung sounds:clear o Edema:no o Chest pain/pressure:no o PT/OT/Nursing:yes o ABO use: o Goals for discharge:ind living
[2021-09-05] MEDS: WARFARIN 2 MG TABLET 4 MG PO (15:56)
[2021-09-05] MEDS: ATORVASTATIN CALCIUM 40 MG TABLET PO (19:56)
[2021-09-05] MEDS: MIRTAZAPINE 15 MG TABLET 7.5 MG PO (19:56)
[2021-09-05 21:16] VITALS: TEMP 36.6; O2SAT 93
[2021-09-05 21:37] VITALS: BP 128/75; PULSE 75; RESP 18; TEMP 37.1; O2SAT 93
--- NOTE | 2021-09-05 21:37 | PC.NURSE ---
Status: Resident complained that he was feeling like his heart was racing and that his teeth were chattering. Resident was also feeling very cold. Was given two warm towels. Feels better now. VS okay. Last Vital Signs Temp 98.8 F 09/05/21 21:37 Pulse 75 09/05/21 21:37 Resp 18 09/05/21 21:37 BP 128/75 09/05/21 21:37 Pulse Ox 93 09/05/21 21:37
[2021-09-06] MEDS: METOPROLOL SUCCINATE (XL) 25 MG TAB 75 MG PO (07:13)
[2021-09-06] MEDS: metroNIDAZOLE 500 MG TABLET PO ×2 (07:13→19:55)
[2021-09-06] MEDS: lisinopriL 20 MG TABLET PO (07:13)
[2021-09-06] MEDS: AMOXICILLIN/CLAVULANATE 875 mg/125 mg TABLET PO ×2 (07:13→15:27)
[2021-09-06] MEDS: TAMSULOSIN HCL 0.4 MG CAPSULE 0.8 MG PO (07:13)
[2021-09-06] MEDS: OMEPRAZOLE 20 MG CAPSULE DR PO (07:13)
[2021-09-06] MEDS: TRIAMTERENE-HCTZ 37.5-25 MG TB 1 TAB PO (07:13)
--- NOTE | 2021-09-06 13:48 | LTC.MCARD ---
LTC Medicare Cardiac Note: o Admission dx: o Daily Weight: o Daily VS: o Pulse (rate, rhythm) o Lung sounds: o Edema: o Chest pain/pressure: o PT/OT/Nursing: o ABO use: o Goals for discharge:
--- NOTE | 2021-09-06 13:52 | PC.NURSE ---
Medicare-Has PT/OT 5 days a week, Denies pain, ambulates to all meals with walker,1 assist gait is steady, no problems with eating,swallowing, appetite is good, Is on a ABO Augmentin tolerates well.
[2021-09-06] MEDS: WARFARIN 2 MG TABLET 4 MG PO (15:27)
[2021-09-06] MEDS: ATORVASTATIN CALCIUM 40 MG TABLET PO (19:55)
[2021-09-06] MEDS: MIRTAZAPINE 15 MG TABLET 7.5 MG PO (19:55)
[2021-09-06 21:15] VITALS: TEMP 36.8; O2SAT 92
[2021-09-06] MEDS: ACETAMINOPHEN 325 MG TABLET 650 MG PO (23:09)
[2021-09-07] MEDS: OMEPRAZOLE 20 MG CAPSULE DR PO (07:09)
[2021-09-07] MEDS: AMOXICILLIN/CLAVULANATE 875 mg/125 mg TABLET PO ×2 (07:09→15:38)
[2021-09-07] MEDS: lisinopriL 20 MG TABLET PO (07:10)
[2021-09-07] MEDS: METOPROLOL SUCCINATE (XL) 25 MG TAB 75 MG PO (07:10)
[2021-09-07] MEDS: metroNIDAZOLE 500 MG TABLET PO ×2 (07:10→20:57)
[2021-09-07] MEDS: TRIAMTERENE-HCTZ 37.5-25 MG TB 1 TAB PO (07:11)
[2021-09-07] MEDS: TAMSULOSIN HCL 0.4 MG CAPSULE 0.8 MG PO (07:11)
--- NOTE | 2021-09-07 09:58 | PC.NURSE ---
Status; Call placed to pharmacy ie: inhaler. Stated sheet says he does not use it. Asked resident if he wants it, he stated no. Note left for DIRECTOR SOCIAL WELFARE
[2021-09-07 09:59] LABS: Prothrombin Time 24.8 Seconds
--- NOTE | 2021-09-07 10:00 | PC.NURSE ---
Medicare: OT/PT as ordered, no verbal or nonverbal s/s of pain this shift. Ambulates with assist of 1
--- NOTE | 2021-09-07 10:22 | PC.NURSE ---
Addendum entered by Shannon Lafleur RN 09/07/21 10:25: Resident did state that the Tylenol last night helped him sleep. Will offer again tonight with non-pharmacological interventions such as a warm blanket. Original Note: Resident stated that he is having insomnia and would like an as needed medication or to have his Remeron increased during stay. PHYSICS TUTOR updated via binder.
--- NOTE | 2021-09-07 12:06 | PC.NURSE ---
INR: Result reviewed by [facility] Coumadin NurseLarissa. Order: Coumadin 4mg daily. Check INR 09/11/21.
[2021-09-07] MEDS: ACETAMINOPHEN 325 MG TABLET 650 MG PO ×2 (13:17→20:57)
[2021-09-07] MEDS: WARFARIN 2 MG TABLET 4 MG PO (15:38)
[2021-09-07] MEDS: ATORVASTATIN CALCIUM 40 MG TABLET PO (20:57)
[2021-09-07] MEDS: MIRTAZAPINE 15 MG TABLET 7.5 MG PO (20:57)
[2021-09-07 21:32] VITALS: TEMP 36.7; O2SAT 93
--- NOTE | 2021-09-08 05:21 | PC.NURSE ---
Status---Res. slept in recliner until 329. Moved into bed then. States slept well with Tylenol at HS. Refused warm blankets or assistance of any kind.
--- NOTE | 2021-09-08 06:51 | REH.OT ---
Hot Liquid Safety Eval Patient is limited by physical deficits with weakness Only drink hot liquids at the table
[2021-09-08] MEDS: lisinopriL 20 MG TABLET PO (07:26)
[2021-09-08] MEDS: OMEPRAZOLE 20 MG CAPSULE DR PO (07:26)
[2021-09-08] MEDS: AMOXICILLIN/CLAVULANATE 875 mg/125 mg TABLET PO ×2 (07:26→15:32)
[2021-09-08] MEDS: METOPROLOL SUCCINATE (XL) 25 MG TAB 75 MG PO (07:27)
[2021-09-08] MEDS: TRIAMTERENE-HCTZ 37.5-25 MG TB 1 TAB PO (07:27)
[2021-09-08] MEDS: metroNIDAZOLE 500 MG TABLET PO ×2 (07:27→18:30)
[2021-09-08] MEDS: TAMSULOSIN HCL 0.4 MG CAPSULE 0.8 MG PO (07:27)
[2021-09-08] MEDS: ACETAMINOPHEN 325 MG TABLET 650 MG PO ×2 (07:37→12:58)
--- NOTE | 2021-09-08 12:48 | PC.NURSE ---
Status/Order:AIDEE Serrano here. Updated resident wants sleeping pill. Order: Melatonin 3mg @ HS, CBC & BMP on 09/10/21.
--- NOTE | 2021-09-08 12:57 | PC.NURSE ---
Swab-7 day Covid Swab done and sent to lab
--- NOTE | 2021-09-08 13:14 | PC.NURSE ---
Pain-C/O pain/discomfort starting from Left ear down to jaw line, given PRN Tylenol x2 states is getting relief from Tylenol.
--- NOTE | 2021-09-08 13:53 | PC.NURSE ---
Medicare-Has PT/OT 5 days a week, tolerates well, gait is steady, is on ABO Augmentin, C/O pain x2 this shift, from Left ear to Left jaw line, Incision site is healing no S/S of infection.
[2021-09-08 14:39] LABS: SARS PCR* Negative SARS-CoV-2 (Negative)
[2021-09-08] MEDS: WARFARIN 2 MG TABLET 4 MG PO (15:33)
[2021-09-08 15:52] VITALS: BMI 31.6
[2021-09-08 16:00] VITALS: TEMP 36.4; O2SAT 94
--- NOTE | 2021-09-08 16:09 | PC.NURSE ---
NOMNC: Resident was admitted from [facility] with cellulitis and abscess of mouth, COPD, online marketing specialist anticoagulation use, A-Fib, HTN. Resident on admission had orders for OT/PT. Resident did receive these skilled inpatient services. It was determined by the IDT that therapies will end 09/10/21. Explained to resident that his last day of coverage will 09/10/21. Starting on 09/11/21 residents coverage at this facility will be private pay. Resident states he does not disagree with this determination he will not be calling [employer] @ to appeal this decision. Denial letter signed and a copy given to resident, and original was placed in paper chart. Residents plan is to discharge home on 09/11/21 after breakfast. He and his live together and therapy and nursing feel he will be safe at home administering his own medications and doing his own ADLs. ?
[2021-09-08] MEDS: MIRTAZAPINE 15 MG TABLET 7.5 MG PO (18:30)
[2021-09-08] MEDS: MELATONIN 3 MG TABLET PO (18:30)
[2021-09-08] MEDS: ATORVASTATIN CALCIUM 40 MG TABLET PO (18:30)
--- NOTE | 2021-09-08 21:25 | PC.NURSE ---
Medication schedule competency: Resident was able to request for his medications on a timely manner based on the active medication list handed to him.
[2021-09-09] MEDS: ACETAMINOPHEN 325 MG TABLET 650 MG PO ×3 (02:59→19:31)
[2021-09-09] MEDS: guaiFENesin 100 MG/ML CUP PO ×2 (03:07→19:36)
[2021-09-09] MEDS: TRIAMTERENE-HCTZ 37.5-25 MG TB 1 TAB PO (08:02)
[2021-09-09] MEDS: lisinopriL 20 MG TABLET PO (08:02)
[2021-09-09] MEDS: TAMSULOSIN HCL 0.4 MG CAPSULE 0.8 MG PO (08:02)
[2021-09-09] MEDS: AMOXICILLIN/CLAVULANATE 875 mg/125 mg TABLET PO (08:02)
[2021-09-09] MEDS: METOPROLOL SUCCINATE (XL) 25 MG TAB 75 MG PO (08:02)
[2021-09-09] MEDS: OMEPRAZOLE 20 MG CAPSULE DR PO (08:02)
[2021-09-09] MEDS: metroNIDAZOLE 500 MG TABLET PO (10:33)
--- NOTE | 2021-09-09 10:35 | PC.NURSE ---
Medicare/Meds-Has PT/OT 5 days a week, tolerates well, Ambulates with STBA gait is steady, As of today is done with ABO, has been Afebrile. Lens Grinder And Polisher gave resident a list of medication, went over all medications,proposal manager writer asked resident to call for medications when they are due.
--- NOTE | 2021-09-09 13:33 | PC.SOCIAL ---
Resident's care conference was held today with resident and spouse. Resident has done well with therapies and plans to discharge home with spouse on Tuesday. Resident's son will bulk picker resident sometime after breakfast on Tuesday. Resident is moving well so home care is not needed. Therapies gave recommendation on equipment needs and resident's spouse has already purchased the items. They are working on having someone come and install grab bars. Family is very supportive.
--- NOTE | 2021-09-09 14:00 | PC.NURSE ---
CARE CONFERENCE: care conference held with dietary, ss, and nursing. Resident is considered vulnerable- because of weakness, balance and cognitive impairments. Therapy department met with and resident yesterday about the plan for discharge and DME needed in home for success. Resident has no concerns with eating or meals. Prefers to be independent with activities in room. Resident is currently independent with adls at this time. Walker to be used. Discussed that medications will need to be set up and reminders given to resident to take at appropriate times. and resident will work together to meet this goal. Medicare A therapy will discharge on 09/11/21 due to therapy goals met. Discussed upcoming appointments and discharge referrals made. No questions/concerns from /resident at this time.
[2021-09-09] MEDS: WARFARIN 2 MG TABLET 4 MG PO (16:28)
[2021-09-09] MEDS: MIRTAZAPINE 15 MG TABLET 7.5 MG PO (20:50)
[2021-09-09] MEDS: ATORVASTATIN CALCIUM 40 MG TABLET PO (20:50)
[2021-09-09] MEDS: MELATONIN 3 MG TABLET PO (20:50)
[2021-09-09 21:15] VITALS: TEMP 36.6; O2SAT 99
[2021-09-10] MEDS: ACETAMINOPHEN 325 MG TABLET 650 MG PO ×3 (05:57→20:25)
[2021-09-10] MEDS: TAMSULOSIN HCL 0.4 MG CAPSULE 0.8 MG PO (07:08)
[2021-09-10] MEDS: lisinopriL 20 MG TABLET PO (07:08)
[2021-09-10] MEDS: TRIAMTERENE-HCTZ 37.5-25 MG TB 1 TAB PO (07:08)
[2021-09-10] MEDS: METOPROLOL SUCCINATE (XL) 25 MG TAB 75 MG PO (07:08)
[2021-09-10] MEDS: OMEPRAZOLE 20 MG CAPSULE DR PO (07:08)
[2021-09-10 07:25] LABS: Basophils Absolute Auto 0.03 K/uL (0.00-0.30); Basophils Percent Auto 0.5 % (0.0-3.0); Eosinophils Absolute Auto 0.28 K/uL (0.00-0.50); Eosinophils Percent Auto 4.8 % (0.0-7.0); Hematocrit 39.8 % (37.0-53.0); Hemoglobin* 13.1 gm/dL (13.5-17.5); Immature Granulocytes Abs Auto 0.17 K/uL (0.00-0.30); Lymphocytes Absolute Auto 1.27 K/uL (0.90-2.90); Lymphocytes Percent Auto 21.9 % (20-44); Mean Corpuscular HGB Conc 33 gm/dL (32-36); Mean Corpuscular Hemoglobin 32 pg (26-34); Mean Corpuscular Volume 96 fL (80-100); Neutrophils Absolute Auto 3.23 K/uL (1.7-7.0); Neutrophils Percent Auto 55.9 % (42.0-72.0); Platelet Count* 294 K/uL (140-440); RDW Coefficient of Variation % 12.5 % (11.5-15.5); Red Blood Count 4.16 m/uL (4.30-5.90); White Blood Count* 5.79 K/uL (4.50-11.00)
[2021-09-10 07:49] LABS: Slide Review Reflex No
[2021-09-10 07:55] LABS: Chloride* 102 mmol/L (96-114); Potassium* 3.7 mmol/L (3.6-5.1); Sodium* 138 mmol/L (135-149)
[2021-09-10 07:58] LABS: Blood Urea Nitrogen* 16 mg/dL (7-30); Calcium* 8.6 mg/dL (8.4-10.6); Carbon Dioxide* 32 mmol/L (20-32); Est. Creatinine Clearance* 55.76; Estimated Glomerular Filt Rate 74 ml/min; Glucose* 101 mg/dL (60-115)
--- NOTE | 2021-09-10 13:45 | PC.NURSE ---
Lab: CBC, BMP results reviewed by Maggie HOSKINS. Discharge order done.
[2021-09-10] MEDS: WARFARIN 2 MG TABLET 4 MG PO (15:40)
[2021-09-10] MEDS: ATORVASTATIN CALCIUM 40 MG TABLET PO (20:28)
[2021-09-10] MEDS: MELATONIN 3 MG TABLET PO (20:28)
[2021-09-10] MEDS: MIRTAZAPINE 15 MG TABLET 7.5 MG PO (20:28)
[2021-09-10 21:45] VITALS: TEMP 36.8; O2SAT 95
--- NOTE | 2021-09-11 02:40 | PC.NURSE ---
Week #1---baseline care plan reviewed and updated. Nothing added to temporary care plan. Is up independently in room. Has fluids available at bedside that he drinks per self. Will get self dressed in the am. Pain---no c/o's pain at [facility]. Is on no scheduled pain meds. Has req. Tylenol pso occ. to help him sleep.
[2021-09-11] MEDS: ACETAMINOPHEN 325 MG TABLET 650 MG PO (06:40)
[2021-09-11] MEDS: guaiFENesin 100 MG/ML CUP PO (06:40)
[2021-09-11] MEDS: OMEPRAZOLE 20 MG CAPSULE DR PO (07:17)
[2021-09-11] MEDS: lisinopriL 20 MG TABLET PO (07:18)
[2021-09-11] MEDS: METOPROLOL SUCCINATE (XL) 25 MG TAB 75 MG PO (07:18)
[2021-09-11] MEDS: TAMSULOSIN HCL 0.4 MG CAPSULE 0.8 MG PO (07:18)
[2021-09-11] MEDS: TRIAMTERENE-HCTZ 37.5-25 MG TB 1 TAB PO (07:18)
[2021-09-11 08:14] LABS: INR 2.88 (0.91-1.10); Prothrombin Time 30.5 Seconds
--- NOTE | 2021-09-11 10:29 | PC.NURSE ---
Discharge: Discharge instructions were explained to resident & son and sent along with all appropriate medications & schedule of meds. Discharge to home with son, ambulatory.
== END 2021-09-11 10:15 | disposition home or self-care (01) | DRG 305 ==
PROVIDERS: Family Medicine; Admitting Provider Family Medicine; Family Provider Nurse Practitioner Gerontology; PCP Family Medicine; Visit Provider Family Medicine
DX: I10 Essential (primary) hypertension (principal); I48.0 Paroxysmal atrial fibrillation; G47.00 Insomnia, unspecified; E78.5 Hyperlipidemia, unspecified; K21.9 Gastro-esophageal reflux disease without esophagitis; Z85.46 Personal history of malignant neoplasm of prostate
CPT/HCPCS: 36415; 80048; 85025; 85610; 87635; 97110; 97112; 97116; 97162; 97165; 97530; 97535

== ENCOUNTER 2022-02-07 08:25 | Emergency (ER) | payer MEDICARE, BC, SELFPAY ==
[2022-02-07 08:33] VITALS: BP 138/69; PULSE 77; RESP 24; TEMP 36.7; O2SAT 93; BMI 30.7
--- NOTE | 2022-02-07 08:38 | CRLHL7_ITS ---
For Patients: As a result of the Century Cures Act, medical imaging exams and procedure reports are released immediately into your electronic medical record. You may view this report before your referring provider. If you have questions, please contact your health care provider. INDICATION: Positive with a pain. TECHNIQUE: Chest single view. IMPRESSION: No pulmonary consolidation. Heart size is normal. There is previous resection of a portion of the left 6th rib. Correlate with previous surgery. No effusion or pneumothorax. Dictated by Mitch Shaw MD @ 02/07/2022 9:21:00 AM (Electronically Signed)
--- NOTE | 2022-02-07 08:47 | ED_ITS ---
HPI - General Adult General Time Seen by Provider: 08:47 Date Seen: 02/07/22 Chief complaint: Shortness of Breath/Dyspnea Stated complaint: Covid+/shortness of breath Time Seen by Provider: 02/07/22 08:31 Source: patient Mode of arrival: ambulatory Limitations: no limitations History of Present Illness HPI narrative: Patient is a pleasant 86 year white male has had a history of pneumothoraces, history of pneumonia, developed a cold with runny nose yesterday and did a home COVID test that was positive. He was just simply concerned given he has had lung problems before that he was not significantly ill from the COVID. At this point all he has is a runny nose, and some upper respiratory congestion, he does not really feel short of breath much different by his report to me that he does chronically. His O2 sat is 93% on room air and that is normal for him by his report, no leg swelling no edema. He has not had much of a cough, mostly upper respiratory congestion and runny nose. He is requesting COVID test to confirm. Related Data Home Medications Medication Instructions Recorded Confirmed atorvastatin 40 mg tablet 40 mg PO HS 08/28/21 09/16/21 fluticasone 113 mcg-salmeterol 14 1 inh inhalation BID 08/28/21 09/16/21 mcg/actuation breath activated powdr lisinopril 20 mg tablet 20 mg PO DAILY 08/28/21 09/16/21 metoprolol succinate 50 mg 75 mg PO DAILY 08/28/21 09/16/21 tablet,extended release 24 hr mirtazapine 7.5 mg tablet 7.5 mg PO HS 08/28/21 09/16/21 omeprazole 20 mg capsule,delayed 20 mg PO DAILY 08/28/21 09/16/21 release tamsulosin 0.4 mg capsule 0.8 mg PO DAILY 08/28/21 09/16/21 triamterene 37.5 1 cap PO DAILY 08/28/21 09/16/21 mg-hydrochlorothiazide 25 mg capsule warfarin 2 mg tablet 4 - 6 mg PO DAILY 08/28/21 09/16/21 Previous Rx's Medication Instructions Recorded atropine 1 % eye drops (Isopto 1 drp sublingual Q2H PRN excessive 09/04/21 Atropine) secretions #30 mL guaifenesin 100 mg/5 mL oral liquid 100 - 200 mg (5 - 10 mL) PO Q4H 09/04/21 PRN Cough #320 mL metronidazole 500 mg tablet 500 mg PO Q12H #10 tabs 09/04/21 Allergies Allergy/AdvReac Type Severity Reaction Status Date / Time codeine Allergy Mild Verified 09/16/21 11:24 Review of Systems Status of ROS: Reports: 6 or more systems reviewed and unremarkable except as noted in History and [facility] Anticoagulant long-term use Asbestosis ASCVD (arteriosclerotic cardiovascular disease) Aspiration, chronic pulmonary Congestive heart failure COPD (chronic obstructive pulmonary disease) History of colonic polyps (09/2019) History of deep venous thrombosis (06/05/12) History of diverticulitis (10/16/07) History of malignant neoplasm of skin (10/15/09) History of pneumothorax (02/06/09) History of poliomyelitis (02/06/09) History of prostate cancer History of vertigo (09/26/06) Hyperlipidemia Hypertension Insomnia Neck abscess Paroxysmal atrial fibrillation Pneumothorax Presbyacusis Sublingual abscess Trouble swallowing Surgical History History of appendectomy History of colonoscopy History of colonoscopy (09/18/19) History of laparoscopic cholecystectomy History of lumbar discectomy (06/14/12) History of right coronary artery stent placement (03/06/18) History of right inguinal hernia repair (02/06/09) Hx of CABG Social History Narrative: , six kids, retired, former smoker Smoking Status: Never smoker Do you use any of these nicotine containing products: None Second hand tobacco smoke exposure: No How often do you have a drink containing alcohol: 4 or more times a week How many standard drinks containing alcohol do you have on a typical day: 1 or 2 How often do you have six or more drinks on one occasion: Never AUDIT-C Alcohol total score: 4 Non-prescribed substance use: denies use service: No Exam Narrative: Exam Narrative: Objective vital signs unremarkable afebrile Alert orient x3, noncyanotic Talks in full in even and unlabored sentences Pulses regular Lungs diminished air exchange bilaterally but no rales or wheezing Heart rate and rhythm regular with 2/6 systolic murmur, occasional ectopic beat noted Extremities are no edema Patient is ambulatory Const: Vital Signs, click to edit/add: Vital Signs - 24 hr 02/07/22 08:33 Temperature 98.1 F Pulse Rate [Pulse Oximeter] 77 Respiratory Rate 24 Blood Pressure [Le ft Upper Arm] 138/69 Pulse Oximetry 93 Oxygen Delivery Me thod Room Air Course Vital Signs Vital signs: Initial Vital Signs Temperature 98.1 F 02/07/22 08:33 Temperature Source Temporal Artery Scan 02/07/22 08:33 Pulse Rate 77 02/07/22 08:33 Respiratory Rate 24 02/07/22 08:33 Blood Pressure 138/69 02/07/22 08:33 Blood Pressure Mean 92 02/07/22 08:33 Blood Pressure Position Sitting 02/07/22 08:33 Pulse Oximetry 93 02/07/22 08:33 Oxygen Delivery Method 02/07/22 08:33 Vital Signs Temperature 98.1 F 02/07/22 08:33 Pulse Rate 77 02/07/22 08:33 Respiratory Rate 24 02/07/22 08:33 Blood Pressure 138/69 02/07/22 08:33 Pulse Oximetry 93 02/07/22 08:33 Oxygen Delivery Method 02/07/22 08:33 Temperature 98.1 F 02/07/22 08:33 Pulse Rate 77 02/07/22 08:33 Respiratory Rate 24 02/07/22 08:33 Blood Pressure 138/69 02/07/22 08:33 Pulse Oximetry 93 02/07/22 08:33 Oxygen Delivery Method 02/07/22 08:33 Medical Decision Making [facility] Narrative Medical decision making narrative: Patient is an 86-year-old male on multiple medications and with a history of pneumothorax, pneumonia. He tested positive for COVID yesterday and complains of upper respiratory symptoms primarily. At this point I think checking a chest x-ray be reasonable as well as doing a COVID/RSV/influenza swab. Will update him on the results. Given his limited symptomology I think observation at this point be appropriate, especially in light of all the medications he is on including anticoagulant. Addendum: The patient's x-ray by my review looks similar to prior x-rays. Addendum: Patient's positive for COVID. X-ray looks unremarkable as mention and unchanged. He is not hypoxic. I think he can go home at this point given his multiple medications I do not think COVID medications are appropriate this time especially given he is on an anticoagulant. He will follow up with regular doctor a couple of days, return to ED as needed. Lab Data Labs: Lab Results 02/07/22 Range/Units 08:40 SARS-CoV-2 (PCR) POSITIVE SARS-CoV-2 A (Negative) Influenza Type A (PCR) Negative PCR FLU A (Negative) Influenza Type B (PCR) Negative PCR FLU B (Negative) RSV (PCR) Negative PCR RSV (Negative) Discharge Plan Discharge Clinical Impression: COVID Patient Disposition: Home, Self-Care Condition: Stable Additional Instructions: Rest, light activity, continue home medications, update regular physician the next couple of days with symptoms, return to ED as needed. Activity Level: Light activity Discharge Diet: Regular Prescriptions: No Action atorvastatin 40 mg tablet 40 mg PO HS fluticasone propion-salmeterol 113-14 mcg/actuation aerosol powdr breath activated 1 inh INHALATION BID lisinopril 20 mg tablet 20 mg PO DAILY metoprolol succinate 50 mg tablet extended release 24 hr 75 mg PO DAILY mirtazapine 7.5 mg tablet 7.5 mg PO HS omeprazole 20 mg capsule,delayed release(DR/EC) 20 mg PO DAILY tamsulosin 0.4 mg capsule 0.8 mg PO DAILY triamterene-hydrochlorothiazid 37.5-25 mg capsule 1 cap PO DAILY Label Comments: TAKE 1 CAPSULE BY MOUTH EVERY MORNING warfarin 2 mg tablet 4 - 6 mg PO DAILY Rx Instructions: 6 MG ON TUESDAY AND 4 MG OTHER DAYS OR DIRECTED guaifenesin 100 mg/5 mL Liquid 100 - 200 mg PO Q4H PRN (Reason: Cough) Qty: 320 0RF atropine [Isopto Atropine] 1 % Drops 1 drp sublingual Q2H PRN (Reason: excessive secretions) Qty: 30 0RF metronidazole 500 mg tablet 500 mg PO Q12H Qty: 10 0RF Follow Up/Referrals: Lee Broderick MD [Primary Care Provider] - Stand Alone Forms: [employer] Info Instructions
--- OUTSIDE RECORDS SUMMARY | 2022-02-07 09:00 | XMS_ITS | Continuity of Care Document ---
:1935 Author Organization [facility] Address [address] [address] [place] [address] Phone Care Team Providers Name Role Phone Vivian Jones MD Unavailable Unavailable Procedures Procedure Date Init Inpt Cons New/estab Mod 5 Advance Directives Directive Yes / No Effective Date File Name No Information Encounters Encounter Practice Location Reason(s) Diagnoses Date Provider Provide rs Description For Visit Copied on Encounter Init Inpt [facility] No Karen Referring Cons [facility] Information [address]: [facility] Jaylan. Mendez [address] [place] [address]Deloris MD C, [address], [facility] 190, [id number], [address] [place] [address], tel:51 [place], [address]. [phone] tel: , . [phone] tel: [phone] Family History Family Member Type Diagnosis Age At Onset No Information Payers Payer name Insurance type Covered green party ID Authorization(s ) [facility] [id number] Social History Type Description Quantity Date Captured Comments Sex Male Smoking Status No Information Chief Complaint And Reason For Visit No Information Reason For Referral Reason For Referral No Information Plan Of Treatment Date Type Action Status No Information History Of Present Illness Encounter Date Complaint History Of Present I llness No Information Functional Status Date Functional Assessment No Information Instructions Date Instruction Additional Informati on No Information Assessments Type Assessment Date No Information Patient Care Teams Name Effective Dates (start - stop) Status M embers No Information
--- OUTSIDE RECORDS SUMMARY | 2022-02-07 09:00 | XMS_ITS | Continuity of Care Document ---
:1935 Author Organization [facility] Address [address] [place] [address] Phone Care Team Providers Name Role Phone Will Dilip CASTELLANOS Unavailable Unavailable Allergies, Adverse Reactions, Alerts Substance Reaction Status Criticality codeine Headache Active No Information Medications Medication Instructions Dosage Effective Dates Status Comment s (start - stop) acetaminophen 500 mg take 1 tablet by 500 MG - Active tablet oral route every 4 - 6 hours as needed not to exceed 8 tablets per 24hrs metoprolol succinate take 1 tablet by 50 MG - Active ER 50 mg oral route every tablet,extended day release 24 hr metoprolol succinate take 1 tablet by 25 MG - Active ER 25 mg oral route every tablet,extended day release 24 hr aspirin 81 mg chew 1 tablet by 81 MG - Active chewable tablet oral route every day triamterene 37.5 take 1 capsule by 1.00 capsule - Active mg-hydrochlorothiazid oral route every e 25 mg capsule day metoprolol tartrate take 1 tablet by 75 MG - Active 75 mg tablet oral route 2 times every day lisinopril 20 mg take 1 tablet by 20 MG - Active tablet oral route every day clopidogrel 75 mg take 1 tablet by 75 MG - Active tablet oral route every day triamterene 50 mg take 1 capsule by 50 MG - Active capsule oral route every day after a meal simvastatin 20 mg take 1 tablet by 20 MG - Active tablet oral route every day in the evening tamsulosin 0.4 mg take 2 capsule by 0.8 MG - Active capsule oral route every day 1/2 hour following the same meal each day atorvastatin 40 mg take 1 tablet by 40 MG - Active tablet oral route every day Procedures Procedure Date Drug test def 22+ classes Drug Urine Toxology With Chromatography OFFICE/OUTPATIENT VISIT, NEW PT-FOCUSED HLTH RISK ASSMT Advance Directives Directive Yes / No Effective Date File Name No Information Encounters Encounter Practice Location Reason(s) Diagnoses Date Provider Provide rs Description For Visit Copied on Encounter [facility] No Information [facility] Dilip. Pain [place] [address], [place], [address] [place], [place], [place], [place], [place], [id number], , [place]. [place] tel: tel: [phone] OFFICE/OUTPAT [facility] Back Pain Chronic pain a Referring IENT VISIT, [facility] (chief syndromeOther Fay. Pr ovider: NEW Pain [place] complaint) intervertebral 0 [phone] [address] [place], [address], [address] [facility] [place], lumbar 100, [facility] [place], [place], [place] [id number], [place], lumbar [place], [place], Clinic 14 00 [place] regionOther [phone] [place] tel: cervical disc , [place]. Rd, [id number] degeneration, tel: [place], unsp cervical [id number] [place], region[place]opa [phone]. thy, cervical tel:[phone] regionEncounter [id number] for therapeutic drug level monitoringLong term (current) use of opiate analgesic [facility] No Information [facility] Fay. Pain [place] [address] [address] [address] [place], [address], [place], [place], [place] [id number], [place], [place], [place] [id number] tel: , [place]. [phone] tel: [phone] Family History Family Member Type Diagnosis Age At Onset No Information Payers Payer name Insurance type Covered constitution party ID Authorization(s ) [facility] [place] Medicare Replacement 16 [id number] Social History Type Description Quantity Date Captured Comments Sex Male Smoking Status No Information Chief Complaint And Reason For Visit No Information Reason For Referral Reason For Referral No Information Plan Of Treatment Date Type Action Status Future Order: Lab Order Drug Test Def 22+ Classlia becker ([id number]), Ordered Ordered on: History Of Present Illness Encounter Date Complaint History Of Present I llness Back Pain Severity level is 7. Duration: chronic. It occurs persistently. Locati on of pain is lower back.The patient describes th e pain as stabbing. Symptoms are aggravated by be nding, changing positions, lifting, lying/rest, standing, twisting, walking and movement. Sympto ms are relieved by sitting. Back Pain (comments) Peña is here for an initial consult and presents with right low back pain/right SI, initial onset many years ago, flar e up in November 2018 after playing golf. He has had 2 laminectomies L4, L5 since 2012. He also reports a fall in January that aggravated the pain. The pain does not radiate down the leg but is localized to a sharp stabbing pain in his right low back/SI. Standing, walking, and bending aggravate the pain.He also reports neck pain.Re ferred by Dr. Akbar who recommended medial c annabis and a right SI ISIS. He has completed an MRI at [facility] this February. His wi fe is present today and contributed to today 's OV.Treatment Tried:ibuprofen, Tyl enol - somewhat helpfulESI at [place] - not hel pfulLumbar RFA at [facility] in 2018 - he does not recall if he had the same pain or different - was over 80% pain relief for over 6 months pain reliefTE NS - helps some PT March 2018Pt goal: [facility] to take over pain management, particularly interes kathy in medical cannabis.Denies hist ory of mental health and mental health hospit alizations. Functional Status Date Functional Assessment No Information Instructions Date Instruction Additional Informati on No Information Assessments Type Assessment Date No Information Patient Care Teams Name Effective Dates (start - stop) Status M embelvin No Information
--- OUTSIDE RECORDS SUMMARY | 2022-02-07 09:01 | XMS_ITS | Continuity of Care Document ---
:1935 Author Organization [facility] Address [address] [place] [address] Phone Care Team Providers Name Role Phone [...] rs Description For Visit Copied on Encounter [facility] No Information [facility] Dilip. Pain [place] [address], [place], [address] [place], [place], [place], [place], [place], [id number], , [place]. [place] tel: tel: [phone] OFFICE/OUTPAT [facility] Back Pain Chronic pain a Referring IENT VISIT, [facility] (chief syndromeOther Fay. Pr ovider: NEW Pain [place] complaint) intervertebral [address] [address] [address], [address] [place], [address], [address] [facility] [place], lumbar 100, Health [place], [place] [id number], thy, lumbar [place], [place], Clinic 14 00 [place] regionOther [phone] [place] tel: cervical disc , [place]. Rd, [id number] degeneration, tel: [place], unsp cervical [phone] [place], region[place]iculopa [id number]. thy, cervical tel:[phone] regionEncounter [id number] for therapeutic drug level monitoringLong term (current) use of opiate analgesic [facility] No Information [facility] Fay. Pain [place] [address] [address] [address] [place], 100, [place], [place], [place] [id number], [place], [place], [place] [phone] tel: , [place]. [phone] tel: [phone] Family History Family Member Type Diagnosis Age At Onset No Information Payers Payer name Insurance type Covered democrat ID Authorization(s ) [facility] Medicare Replacement 16 [id number] Social History Type Description Quantity Date Captured [...] ISIS. He has completed an MRI at [facility] this February. His wi fe is present today and contributed to today 's OV.Treatment Tried:ibuprofen, Tyl enol - somewhat helpfulESI at [place] - not hel pfulLumbar RFA at [facility] in 2018 - he does not [...]
--- OUTSIDE RECORDS SUMMARY | 2022-02-07 09:01 | XMS_ITS | Continuity of Care Document ---
:1935 Author Organization [facility] Address [address] [address] [place] [address] Phone Care Team Providers Name Role Phone [...] Jaylan. Mendez [address] [place] [address]Deloris MD C, [address], [facility] 190, [id number], [address] [place] [address], tel:51 [place], [address]. [phone] tel: , . [phone] tel: [phone] Family History Family Member Type Diagnosis Age At Onset No Information Payers Payer name Insurance type Covered democrat ID Authorization(s ) [facility] [id number] Social History Type Description Quantity Date Captured [...]
[2022-02-07 09:25] LABS: PCR FLU A Negative PCR FLU A (Negative); PCR FLU B Negative PCR FLU B (Negative); PCR RSV Negative PCR RSV (Negative); SARS PCR* POSITIVE SARS-CoV-2 (Negative)
== END 2022-02-07 09:40 | disposition home or self-care (01) ==
PROVIDERS: Emergency Provider Family Medicine; PCP Family Medicine
DX: U07.1 COVID-19 (principal); R09.89 Other specified symptoms and signs involving the circulatory and respiratory systems
CPT/HCPCS: 71045; 87502; 87634; 87635; 99284

== ENCOUNTER 2022-04-22 06:48 | Outpatient (CLI) | payer MEDICARE, BC, SELFPAY ==
--- NOTE | 2022-04-22 07:15 | CRLHL7_ITS ---
For Patients: As a result of the Century Cures Act, medical imaging exams and procedure reports are released immediately into your electronic medical record. You may view this report before your referring provider. If you have questions, please contact your health care provider. Indication: DDD LUMBAR, LUMBAR RADICULOPATHY, LUMBAR FORAMINAL STENOSIS Technique: Noncontrast sagittal and axial T1, T2, and sagittal STIR sequences are provided. Comparison: MRI 05/14/2020 Findings: No spondylolysis or spondylolisthesis. Lumbar lordosis is preserved. No fractures. No prevertebral or paraspinal edema. No aggressive osseous lesion. Modic type 2 degenerative changes at L3-4 and L1-2. The conus medullaris is normal in location. T12-L1: Normal disc and facet joints. No significant spinal canal stenosis or neural foramen narrowing. L1-2: Stable disc bulge eccentric to the left, moderate facet arthrosis and left ligamentum flavum buckling. Stable moderate left subarticular recess stenosis. Mild neural foramen narrowing bilaterally L2-3: Disc desiccation. Mild disc bulge and facet arthrosis. Mild spinal canal stenosis. Mild neural foramen narrowing bilaterally L3-4: Mild disc height loss. Circumferential disc bulge. Laminectomy postoperative changes. Advanced facet arthrosis. Moderate spinal canal stenosis. Moderate right and mild left neural foramen narrowing L4-5: Circumferential disc bulge and advanced facet arthrosis. Severe left and moderate right subarticular recess stenosis. Mild neural foramen narrowing bilaterally L5-S1: Disc bulging and right paracentral disc protrusion results in severe right subarticular recess narrowing and contact with the traversing right S1 nerve roots. Advanced facet arthrosis. Moderate left and mild right neural foramen narrowing. Atrophy of paraspinal muscles. Right SI joint fusion. Impression: 1. No acute osseous abnormality. No significant changes compared to the 05/14/2020 exam. 2. Right SI joint fixation hardware. Atrophy of paraspinal muscles. 3. At L1-2, stable moderate left subarticular recess and mild bilateral neural foramen narrowing 4. At L3-4, stable moderate spinal canal stenosis, moderate right and mild left neural foramen narrowing. 5. At L4-5, stable severe left and moderate right subarticular recess stenosis and mild neural foramen narrowing bilaterally 6. At L5-S1, stable severe right subarticular recess stenosis, moderate left mild right neural foramen narrowing. Dictated by Jaylan Washington MD @ 04/23/2022 8:58:54 AM (Electronically Signed)
== END 2022-04-22 06:49 | disposition home or self-care (01) ==
LOC: MRI 06:49
PROVIDERS: PCP Family Medicine; Visit Provider Family Medicine
DX: M51.36 Other intervertebral disc degeneration, lumbar region (principal); M51.26 Other intervertebral disc displacement, lumbar region; M48.07 Spinal stenosis, lumbosacral region; M47.816 Spondylosis without myelopathy or radiculopathy, lumbar region; M48.061 Spinal stenosis, lumbar region without neurogenic claudication; M54.16 Radiculopathy, lumbar region
CPT/HCPCS: 72148

== ENCOUNTER 2022-05-11 08:21 | Outpatient (CLI) | payer MEDICARE, BC, SELFPAY | END 2022-05-11 08:22 | disposition home or self-care (01) | LOC: INJ CL 08:24 | PROVIDERS: PCP Family Medicine; Visit Provider Family Medicine | DX: M51.36 Other intervertebral disc degeneration, lumbar region (principal); M54.16 Radiculopathy, lumbar region | CPT/HCPCS: 64483; J0702; Q9966 ==

== ENCOUNTER 2022-08-12 06:01 | Emergency (ER) | payer MEDICARE, BC, SELFPAY ==
[2022-08-12 06:06] VITALS: BP 136/77; PULSE 96; RESP 16; TEMP 36.1; O2SAT 94; BMI 31.6
--- NOTE | 2022-08-12 06:23 | CRLHL7_ITS ---
For Patients: As a result of the 21st Century Cures Act, medical imaging exams and procedure reports are released immediately into your electronic medical record. You may view this report before your referring provider. If you have questions, please contact your health care provider. INDICATION: Hematuria. History of cholecystectomy, prostatectomy, appendectomy and hernia repair. COMPARISON: November 14, 2018 TECHNIQUE: CT examination of the abdomen and pelvis was performed without intravenous contrast. Thin section axial images were obtained from the lung bases through the pubic symphysis. Oral contrast was not administered. Please note that all CT scans at this facility use dose modulation, iterative reconstruction, and/or weight-based dosing when appropriate to reduce radiation dose to as low as reasonably achievable. FINDINGS: LUNG BASES: Abnormal opacities at the lung bases consistent with interstitial fibrosis. Also pleural calcifications which may be related to remote asbestos exposure. Pleural thickening. Similar overall appearance to the prior exam.The heart size is normal at the lung bases. LIVER/BILIARY SYSTEM:The liver is normal in size and configuration given the lack of intravenous contrast. There is no visible focal mass and there is no intra- or extra hepatic biliary ductal dilatation.Absent gallbladder ADRENALS: Normal non-contrast appearance KIDNEYS, URETERS and BLADDER:Tiny intrarenal calculi bilaterally. No evidence of current or recent obstructive uropathy on either side. The bladder as visualized appears normal on this noncontrast study. No specific visible cause for hematuria on this exam. Follow-up evaluation recommended regarding hematuria. SPLEEN:Normal non-contrast appearance. PANCREAS: Normal non-contrast appearance. RETROPERITONEUM and MESENTERY: There is no mass, adenopathy or aortic aneurysm. Atherosclerotic vascular calcifications GASTROINTESTINAL SYSTEM: There is no evidence of diverticulitis, colitis, mechanical obstruction, or appendicitis. The small bowel as visualized appears normal.Extensive diverticulosis PELVIS: Postoperative/posttreatment changes associated with the prostate.. OSSEOUS STRUCTURES and ABDOMINAL WALL: Postsurgical changes. Degenerative changes. No destructive process of bone.No significant abdominal wall defect. OTHER: No free fluid or free air. IMPRESSION: No specific visible cause for hematuria on this noncontrast exam. There are very small intrarenal calculi but there is no evidence of current or recent obstructive uropathy. Other nonacute appearing findings as discussed above. Please note that all CT scans at this facility use dose modulation, iterative reconstruction, and/or weight-based dosing when appropriate to reduce radiation dose to as low as reasonably achievable. Dictated by Indio Chan MD @ 08/12/2022 7:06:59 AM (Electronically Signed)
[2022-08-12] MEDS: 0.9 % SODIUM CHLORIDE 500 ML 500 ML IV (06:35)
--- OUTSIDE RECORDS SUMMARY | 2022-08-12 06:35 | XMS_ITS | Continuity of Care Document ---
Author Name Unknown Organization [facility] Address [address] [address] [place] [address] Phone Care Team Providers Care Quartz Orientator Name Role Phone Vivian Jones MD Unavailable Unavailable Procedures Procedure Date Init Inpt Cons New/estab Mod 5 08 Advance Directives Directive Yes / No Effective Date File Name No Information Encounters Encounter Description Practice Location Reason(s) For Visit Diagnoses Date Provider Providers Copied on Encounter Init Inpt Cons New/estab Mod 5 [facility] [place], [address] [address], [place], [place], [id number], [place] tel:[phone] [facility] No Information 8 Karen Tian. [address] [facility], [facility] [address], [place], [place], [id number] , [place]. tel:[phone] Referring Provider: Mendez Benites MD , [address], [address]. tel:[phone] Family History Family Member Type Diagnosis Age At Onset No Information Payers Payer name Insurance type Covered green party ID Sujey gilbert(s) [facility] [id number] Social History Type Description Quantity Date Captured [...]
--- OUTSIDE RECORDS SUMMARY | 2022-08-12 06:35 | XMS_ITS | Continuity of Care Document ---
Author Name Unknown Organization [facility] Address [address] [place] [address] Phone Care Team Providers Care Sailing Instructor Name Role Phone Eben Chacon MD Unavailable Unavailable Allergies, Adverse Reactions, Alerts Substance Reaction Status Criticality codeine headache, eye pain Active No Inform ation Medications Medication Instructions Dosage Effective Dates (start - stop) Status Comments GABAPENTIN (unknown strength) Not Available - Active FLOMAX (unknown strength) Not Available - Active CALCET PETITES (unknown strength) Not Available - Active BABY ASPIRIN (unknown strength) Not Available - Active DYRENIUM (unknown strength) Not Available - Active LISINOPRIL (unknown strength) Not Available - Active SIMVASTATIN (unknown strength) Not Available - Active Procedures Procedure Date Office/Outpatient Visit,Est, Mod 2014 Remove Lumbar Spine Lamina, 1 Seg Pa Assist Remove Lumbar Spine Lamina, 1 Seg Office/Outpatient Visit,[facility], Mod 2012 Office/outpatient visit,est, low 2010 Office/outpatient visit,[facility], [facility] 2010 X-ray exam lwr spine, min 4 views Advance Directives Directive Yes / No Effective Date File Name No Information Encounters Encounter Description Practice Location Reason(s) For Visit Diagnoses Date Provider Providers Copied on Encounter [facility], [address], [place], [place], [id number], [place] tel:[phone] [facility] No Information 7 Ines Treadwell. [facility], [address], [facility] [address], [place], [place], [id number], [place]. tel:[phone] Office/Outpa tient Visit,Est, Mod [facility], [address], [place], [place], [id number], [place] tel:[phone] [facility] OverweightSp inal stenosis, lumbar regionOther intervertebr al disc displacement , lumbar region Dec- 5 Transfeldt Ensor. [facility], [address], [address], [id number], [place]. tel:[phone] Referring Provider: Hitesh Akbar, [address], [address]. tel:[phone] Z [facility], [address], [address], [place] tel:[phone] [facility] No Information 3 Transfeldt Ensor. [facility] [place], [address], [address], [id number], [place]. tel:[phone] Referring Provider: Abel Bneoit, [facility] [address] [place], [address]. tel:[phone] Office/Outpa tient Visit,New, Mod Z [facility], [address] [place] [address], [address], [place] tel:[phone] [facility] No Information 3 Transfeldt Ensor. [facility] [place], [address], [address], [id number], [place]. tel:[phone] Referring Provider: Abel Benoit, [facility] [address] [place], [address]. tel:[phone] Z [facility], [address] [place] [address], [address], [place] tel:[phone] [facility] No Information 3 Eckroth Fletcher. [address], [id number], [place]. tel:[phone] Office/outpa tient visit,est, low Z [facility], [address] [place], [place] [address], [place], [address], [place] tel:[phone] [facility] No Information Transfeldt Ensangelica. [facility], [address] [place] [address], [facility] [address], [place], [place], [id number], [place]. tel:[phone] Referring Provider: Abel Benoit, [facility] [address] [place], [address]. tel:[phone] Office/outpa tient visit,new, mod Z [facility], [address] [place] [address] [address], [place], [address], [place] tel:[phone] [facility] No Information 1 Dario Bynum. [address] [place] [address], [id number], [place]. tel:[phone] Referring Provider: Abel Benoit, [facility] [address] [place], [address]. tel:[phone] Z [facility], [address] [place] [address], [place], [address], [place] tel:[phone] [employer] back pain (chief complaint) Hypertension , UnspecifiedH ypercholeste rolemia No Information Referring Provider: Abel Benoit, [facility] [address] [place], [address]. tel:[phone] Family History Family Member Type Diagnosis Age At Onset Problem (finding) Family history of Cance r Problem (finding) Family history of Low b ack problems Payers Payer name Insurance type Covered green party ID Authoriza tipatricia(s) BCBS [id number] Medicare [facility] [id number] Social History Type Description Quantity Date Captured [...] No Information Instructions Date Instruction Additional Infor nataliia Weight Management Related to Ove adelfo Weight management: R efer to Referral to General Practitioner timeframe: 1 Month. Related to Overweight Assessments Type Assessment Date No Information Patient Care Teams Name Effective Dates (start - stop) Status Members No Information
--- OUTSIDE RECORDS SUMMARY | 2022-08-12 06:36 | XMS_ITS | Continuity of Care Document ---
Author Name Unknown Organization [facility] Address [address] [facility] [place] [address] Phone Care Team Providers Care Child Support Specialist Name Role Phone Will Dilip CASTELLANOS Unavailable [...] Drug Urine Toxology With Chromatography OFFICE/OUTPATIENT VISIT, [facility] PT-FOCUSED HLTH RISK ASSMT Advance Directives Directive Yes / No Effective Date File Name No Information Encounters Encounter Description Practice Location Reason(s) For Visit Diagnoses Date Provider Providers Copied on Encounter [facility], [address] [place] [address] [address] [place], [place], [id number], [place] tel:[phone] [facility] No Information 2 Ren Cherry. [address] [facility] [place], [id number] , [place]. tel:[phone] OFFICE/OUTPAT IENT VISIT, [facility], [address] [facility] [address] [place], [place], [id number], [place] tel:[phone] [facility] Back Pain (chief complaint) Chronic pain syndromeOther intervertebral disc degeneration, lumbar regionRadiculopa thy, lumbar regionOther cervical disc degeneration, unsp cervical regionRadiculopa thy, cervical regionEncounter for therapeutic drug level monitoringLong term (current) use of opiate analgesic 0 Clayton Aponte. [address] [facility] [address], [place], [place], [id number] , [place]. tel:[phone] Referring Provider: Hitesh Akbar [facility] [address] [place], [address]. tel:[phone] [facility], [address] [facility] [place], [id number], [place] tel:[phone] [facility] No Information 0 Calyton pAonte. [address] [facility] [address], [place], [place], [id number] , [place]. [phone] Family History Family Member Type Diagnosis Age At Onset No Information Payers Payer name Insurance type Covered republican ID Authornickya vladimir(s) [facility] Medicare Replacement 16 [id number] Social History Type Description Quantity Date Captured [...] ISIS. He has completed an MRI at [facility] this February. His is present today and contributed to today's OV.Treatment Tried:ibuprofen, Tylenol [place] - not helpfulLumbar RFA at [facility] in 2018 - he does not [...]
--- OUTSIDE RECORDS SUMMARY | 2022-08-12 06:36 | XMS_ITS | Continuity of Care Document ---
Author Name Unknown Organization [facility] Address [address] [place] [address] Phone Care Team Providers Care Horse Exerciser Name Role Phone Eben Chacon MD Unavailable [...] Remove Lumbar Spine Lamina, 1 Seg Office/Outpatient Visit,[facility], Mod 2012 Office/outpatient visit,est, low 2010 Office/outpatient visit,[facility], [facility] 2010 X-ray exam lwr spine, min 4 views Advance Directives Directive Yes / No Effective Date File Name No Information Encounters Encounter Description Practice Location Reason(s) For Visit Diagnoses Date Provider Providers Copied on Encounter [facility], [address], [place], [place], [id number], [place] tel:[phone] [facility] No Information 7 Ines Treadwell. [facility], [address], [address], [place], [place], [id number], [place]. tel:[phone] Office/Outpa tient Visit,Est, Mod [facility], [address], [place], [place], [id number], [place] tel:[phone] [facility] OverweightSp inal stenosis, lumbar regionOther intervertebr al disc displacement , lumbar region Dec- 5 Transfeldt Ensor. [facility], [address], [address], [id number], [place]. tel:[phone] Referring Provider: Hitesh Akbar, [address], [address]. tel:[phone] Z [facility], [address], [address], [place] tel:[phone] [facility] No Information 3 Transfeldt Ensor. [facility] [place], [address], [address], [id number], [place]. tel:[phone] Referring Provider: Abel Benoit, [facility] [address] [place], [address]. tel:[phone] Office/Outpa tient Visit,New, Mod Z [facility], [address] [place] [address], [address], [place] tel:[phone] [facility] No Information 3 Transfeldt Ensor. [facility] [place], [address], [address], [id number], [place]. tel:[phone] Referring Provider: Abel Benoit, [facility] [address] [place], [address]. tel:[phone] Z [facility], [address] [place] [address], [address], [place] tel:[phone] [facility] No Information 3 Eckroth Fletcher. [address], [id number], [place]. tel:[phone] Office/outpa tient visit,est, low Z [facility], [address] [place], [place] [address]ite [address], [place], [address], [place] tel:[phone] [employer] No Information Transfeldt Ensangelica. [facility], [address] [place] [address], [address], [place], [place], [id number], [place]. tel:[phone] Referring Provider: Abel Benoit, [facility] [address] [place], [address]. tel:[phone] Office/outpa tient visit,new, mod Z [facility], [address] [place] [address] 600, [place], [address], [place] tel:[phone] [employer] No Information 1 Dario Bynum. [address] [place] [address], [id number], [place]. tel:[phone] Referring Provider: Abel Benoit, [facility] [address] [place], [address]. tel:[phone] Z [facility], [address] [place] [address], [place], [address], [place] tel:[phone] [employer] back pain (chief complaint) Hypertension , UnspecifiedH ypercholeste rolemia No Information Referring Provider: Abel Benoit, [facility] [address] [place], [address]. tel:[phone] Family History Family Member Type Diagnosis Age At Onset Problem (finding) Family history of Cance r Problem (finding) Family history of Low b ack problems Payers Payer name Insurance type Covered constitution party ID Authoriza tipatricia(s) BCBS [id number] Medicare [facility] BL [id number] Social History Type Description Quantity Date Captured [...]
--- OUTSIDE RECORDS SUMMARY | 2022-08-12 06:36 | XMS_ITS | Continuity of Care Document ---
Author Name Unknown Organization [facility] Address [address] [facility] [place] [address] Phone Care Team Providers Care Plc Programmer Name Role Phone Will Dilip CASTELLANOS Unavailable [...] Drug Urine Toxology With Chromatography OFFICE/OUTPATIENT VISIT, [facility] PT-FOCUSED HLTH RISK ASSMT Advance Directives Directive Yes / No Effective Date File Name No Information Encounters Encounter Description Practice Location Reason(s) For Visit Diagnoses Date Provider Providers Copied on Encounter [facility], [address] [place] [address] [address] [place], [place], [id number], [place] tel:[phone] [facility] No Information 2 Ren Cherry. [address] [facility] [place], [place], [id number] , [place]. tel:[phone] OFFICE/OUTPAT IENT VISIT, [facility], [address] [facility] [address] [place], [place], [address], [place] tel:[phone] [facility] Back Pain (chief complaint) Chronic pain syndromeOther intervertebral disc degeneration, lumbar regionRadiculopa thy, lumbar regionOther cervical disc degeneration, unsp cervical regionRadiculopa thy, cervical regionEncounter for therapeutic drug level monitoringLong term (current) use of opiate analgesic 0 Clayton Aponte. [address] [facility] [address], [place], [place], [id number] , [place]. tel:[phone] Referring Provider: Hitesh Akbar [facility] [address] [place], [address]. tel:[phone] [facility], [address] [facility] [place], [address], [place] tel:[phone] [facility] No Information 0 Clayton Aponte. [address] [facility] [address], [place], [place], [address] , [place]. [phone] Family History Family Member Type Diagnosis Age At Onset No Information Payers Payer name Insurance type Covered republican ID Authornickya vladimir(s) [facility] Medicare Replacement 16 [id number] Social History Type Description Quantity Date Captured [...] ISIS. He has completed an MRI at [facility] this February. His is present today and contributed to today's OV.Treatment Tried:ibuprofen, Tylenol - somewhat helpfulESI [place] - not helpfulLumbar RFA at [facility] 2018 - he does [...]
--- OUTSIDE RECORDS SUMMARY | 2022-08-12 06:36 | XMS_ITS | Continuity of Care Document ---
Author Name Unknown Organization [facility] Address [address] [address] [place] [address] Phone Care Team Providers Care Door Furring Installer Name Role Phone Vivian Jones MD Unavailable Unavailable Procedures Procedure Date Init Inpt Cons New/estab Mod 5 08 Advance Directives Directive Yes / No Effective Date File Name No Information Encounters Encounter Description Practice Location Reason(s) For Visit Diagnoses Date Provider Providers Copied on Encounter Init Inpt Cons New/estab Mod 5 [facility], [address] [address], [place], [place], [address], [place] tel:[phone] [facility] No Information 8 Karen Tian. [address] [facility], [facility] [address], [place], [place], [id number] , [place]. tel:[phone] Referring Provider: Mendez Benites MD , [address], [address]. tel:[phone] Family History Family Member Type Diagnosis Age At Onset No Information Payers Payer name Insurance type Covered alliance party ID Sujey gilbert(s) [facility] [id number] Social History Type Description Quantity Date Captured [...]
--- NOTE | 2022-08-12 06:48 | ED_ITS ---
HPI - General Adult General Chief complaint: Urogenital Problems, Male Stated complaint: blood in urine Time Seen by Provider: 08/12/22 06:09 Source: patient Mode of arrival: ambulatory History of Present Illness HPI narrative: 87-year-old male with a notable prior history of prostate cancer presents to the emergency department with painless hematuria. There was no injury, no trauma. He reports that his last INR was checked last week and was therapeutic at 2.4. It sounds like he is anticoagulated due to a prior history of blood clots. He is unsure. He does not know his medications, nor does he have a list today. He does report that he takes 4 mg of Coumadin daily and has been taking it consistently with no dose alterations recently. He is not noting any dysuria, no fever. He had gross hematuria 1 week ago, did not contact his urologist. When he urinated this morning, he noted hematuria again and comes to the emergency department. The rationale for this is unclear. No difficulty urinating. No changes in bowel habits. Normal appetite, no fevers. No abdominal or urinary pain. Did not try any home interventions prior to coming to the ED. has not contacted his urologist or primary care provider. Past medical history is reviewed from what limited records that we have. It looks like he has probably anticoagulated more for heart failure and AFib. He does have a history of COPD and prior prostate cancer. Surgically he has had a prostate resection and also what sounds like radiation seeds placed more than 10 years ago. He does get regular PSA levels but no longer follows with urology. He reports that he is a nonsmoker, denies alcohol intake. No pertinent travel. ROS is notable for the urinary symptoms as above only, otherwise denies times 12 systems. Related Data Home Medications Medication Instructions Recorded Confirmed atorvastatin 40 mg tablet 40 mg PO HS 08/28/21 09/16/21 fluticasone 113 mcg-salmeterol 14 1 inh inhalation BID 08/28/21 09/16/21 mcg/actuation breath activated powdr lisinopril 20 mg tablet 20 mg PO DAILY 08/28/21 09/16/21 metoprolol succinate 50 mg 75 mg PO DAILY 08/28/21 09/16/21 tablet,extended release 24 hr mirtazapine 7.5 mg tablet 7.5 mg PO HS 08/28/21 09/16/21 omeprazole 20 mg capsule,delayed 20 mg PO DAILY 08/28/21 09/16/21 release tamsulosin 0.4 mg capsule 0.8 mg PO DAILY 08/28/21 09/16/21 triamterene 37.5 1 cap PO DAILY 08/28/21 09/16/21 mg-hydrochlorothiazide 25 mg capsule warfarin 2 mg tablet 4 - 6 mg PO DAILY 08/28/21 09/16/21 Previous Rx's Medication Instructions Recorded atropine 1 % eye drops (Isopto 1 drp sublingual Q2H PRN excessive 09/04/21 Atropine) secretions #30 mL guaifenesin 100 mg/5 mL oral liquid 100 - 200 mg (5 - 10 mL) PO Q4H 09/04/21 PRN Cough #320 mL metronidazole 500 mg tablet 500 mg PO Q12H #10 tabs 09/04/21 Allergies Allergy/AdvReac Type Severity Reaction Status Date / Time codeine Allergy Mild Verified 05/11/22 09:09 [facility] Medical History History of vertigo (09/26/06) ?Z87.898 - Personal history of other specified conditions (ICD-10) History of poliomyelitis (02/06/09) ?Z86.12 - Personal history of poliomyelitis (ICD-10) History of pneumothorax (02/06/09) ?Z87.09 - Personal history of other diseases of the respiratory system (ICD- 10) History of malignant neoplasm of skin (10/15/09) ?Z85.828 - Personal history of other malignant neoplasm of skin (ICD-10) History of diverticulitis (10/16/07) ?Z87.19 - Personal history of other diseases of the digestive system (ICD-10) History of deep venous thrombosis (06/05/12) ?Z86.718 - Personal history of other venous thrombosis and embolism (ICD-10) History of colonic polyps (09/2019) ?Z86.010 - Personal history of colonic polyps (ICD-10) Aspiration, chronic pulmonary ?T17.908A - Unspecified foreign body in respiratory tract, part unspecified causing other injury, initial encounter (ICD-10) Sublingual abscess ?K12.2 - Cellulitis and abscess of mouth (ICD-10) Trouble swallowing ?R13.10 - Dysphagia, unspecified (ICD-10) Anticoagulant long-term use ?Z79.01 - prison (current) use of anticoagulants (ICD-10) Neck abscess ?L02.11 - Cutaneous abscess of neck (ICD-10) Pneumothorax ?J93.9 - Pneumothorax, unspecified (ICD-10) COPD (chronic obstructive pulmonary disease) ?J44.9 - Chronic obstructive pulmonary disease, unspecified (ICD-10) Asbestosis ?J61 - Pneumoconiosis due to asbestos and other mineral fibers (ICD-10) History of prostate cancer ?Z85.46 - Personal history of malignant neoplasm of prostate (ICD-10) Insomnia ?G47.00 - Insomnia, unspecified (ICD-10) Paroxysmal atrial fibrillation ?I48.0 - Paroxysmal atrial fibrillation (ICD-10) Congestive heart failure ?I50.9 - Heart failure, unspecified (ICD-10) Hyperlipidemia ?E78.5 - Hyperlipidemia, unspecified (ICD-10) 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 - Presbycusis, unspecified ear (ICD-10) Hypertension ?I10 - Essential (primary) hypertension (ICD-10) ASCVD (arteriosclerotic cardiovascular disease) ?I25.10 - Atherosclerotic heart disease of [place] coronary artery without angina pectoris (ICD-10) Surgical History History of right inguinal hernia repair (02/06/09) ?Z98.890 - Other specified postprocedural states (ICD-10) ?Z87.19 - Personal history of other diseases of the digestive system (ICD-10) History of right coronary artery stent placement (03/06/18) ?Z95.5 - Presence of coronary angioplasty implant and graft (ICD-10) History of lumbar discectomy (06/14/12) ?Z98.890 - Other specified postprocedural states (ICD-10) History of colonoscopy (09/18/19) ?Z98.890 - Other specified postprocedural states (ICD-10) History of colonoscopy ?Z98.890 - Other specified postprocedural states (ICD-10) History of appendectomy ?Z90.49 - Acquired absence of other specified parts of digestive tract (ICD- 10) History of laparoscopic cholecystectomy ?Z90.49 - Acquired absence of other specified parts of digestive tract (ICD- 10) Hx of CABG ?Z95.1 - Presence of aortocoronary bypass graft (ICD-10) Social History Narrative: , six kids, retired, former smoker Smoking Status: Never smoker Do you use any of these nicotine containing products: None Second hand tobacco smoke exposure: No How often do you have a drink containing alcohol: 4 or more times a week How many standard drinks containing alcohol do you have on a typical day: 1 or 2 How often do you have six or more drinks on one occasion: Never AUDIT-C Alcohol total score: 4 Non-prescribed substance use: denies use service: No Exam Const: Vital Signs, click to edit/add: Vital Signs - 24 hr 08/12/22 06:06 Temperature 96.9 F L Pulse Rate [Left P ulse Oximeter] 96 Respiratory Rate 16 Blood Pressure [Ri ght Upper Arm] 136/77 Pulse Oximetry 94 Oxygen Delivery Me thod Room Air Documenting provider has reviewed patient's vital signs: yes Common normals: no apparent distress General appearance: well kempt Other: Moderate historian, mild cognitive impairment evident. HENMT: Common normals: normocephalic and head/scalp atraumatic Head and scalp: normocephalic and atraumatic Face and sinus: normal facial exam Mouth: oral and palatal mucosa normal Throat: posterior oropharynx normal Eye: Common normals: conjunctivae normal General eye: normal appearance of both eyes Conjunctiva: conjunctiva(e) normal Neck & C-Spine: Common normals: full ROM and no lymphadenopathy Resp: Common normals: normal respiratory effort, no use of accessory muscles and clear to auscultation bilaterally Effort & inspection: able to speak in complete sentences Auscultation: clear to auscultation bilaterally Cardio: Common normals: regular rate, regular rhythm, S1 normal heart sound, S2 normal heart sound and no murmurs Rate: regular rate Rhythm: regular rhythm Heart sounds: S1 normal and S2 normal GI: Common normals: Normal to inspection, nondistended, normoactive bowel sounds present, soft to palpation, non-tender, no hepatosplenomegaly and no masses Palpation: soft and no hepatosplenomegaly : Common normals: no CVA tenderness Bladder/kidney exam: no CVA tenderness Back & Pelvis: Common normals: no CVA tenderness Extremity: Common normals: normal to inspection, full ROM, normal capillary refill and no pedal edema Psych: Common normals: cooperative and affect normal Appearance: well kempt Attitude: calm Skin: Common normals: no rashes or lesions noted General skin exam: no rashes or lesions noted Course Course Hospital Course: Differential diagnosis includes kidney stone, prostate cancer, prostatitis, urinary infection, urinary of tumor versus malignancy. Also consider supratherapeutic INR. Recommend urinalysis. Unfortunately he is unable to provide a urine sample and bladder scan shows only 10 mL as he had just urinated prior to coming to ED. Patient will be encouraged on p.o. intake, IV fluids will be given [address] of the abdomen and pelvis without contrast, basic labs including INR will be obtained. Chances are he will require urology follow-up the like we not on an emergent basis. I am not drawing a PSA as we will not have the results for several days and it will not be easily view both by his urologist or primary care provider, he is scheduled to have this done in a couple of weeks anyway. Reevaluation(s) Time of Reevaluation #1: 08:08 Reevaluation #1: Counseled patient on all findings. This will require further urology workup. Thankfully, there are no emergent findings. His INR is therapeutic, there is no signs of significant anemia. Kidney function looks good. CT is overall reassuring. Patient is informed of all of these findings. I have placed urology referral. Patient is informed to call his primary care provider if he has not heard from the urologist within a few days. It is okay if it takes a few weeks to get the appointment. Alarm symptoms were reviewed that would be indications to come back to the emergency department and he verbalizes understanding and agreement. All questions answered. Vital Signs Vital signs: Initial Vital Signs Temperature 96.9 F L 08/12/22 06:06 Temperature Source Temporal Artery Scan 08/12/22 06:06 Pulse Rate 96 08/12/22 06:06 Respiratory Rate 16 08/12/22 06:06 Blood Pressure 136/77 08/12/22 06:06 Blood Pressure Mean 96 08/12/22 06:06 Blood Pressure Position Sitting 08/12/22 06:06 Pulse Oximetry 94 08/12/22 06:06 Oxygen Delivery Method Room Air 08/12/22 06:06 Vital Signs Temperature 96.9 F L 08/12/22 06:06 Pulse Rate 96 08/12/22 06:06 Respiratory Rate 16 08/12/22 06:06 Blood Pressure 136/77 08/12/22 06:06 Pulse Oximetry 94 08/12/22 06:06 Oxygen Delivery Method Room Air 08/12/22 06:06 Temperature 96.9 F L 08/12/22 06:06 Pulse Rate 96 08/12/22 06:06 Respiratory Rate 16 08/12/22 06:06 Blood Pressure 136/77 08/12/22 06:06 Pulse Oximetry 94 08/12/22 06:06 Oxygen Delivery Method Room Air 08/12/22 06:06 Medical Decision Making Lab Data Lab results reviewed: Yes I reviewed the patient's lab results Lab results narrative: Notable for hematuria without obvious signs of infection. Patient will need further urology workup. Labs: Lab Results 08/12/22 08/12/22 Range/Units 06:35 07:35 WBC 6.02 (4.50-11.00) K/uL RBC 4.71 (4.30-5.90) m/uL Hgb 15.1 (13.5-17.5) gm/dL Hct 44.5 (37.0-53.0) % MCV 95 (80-100) fL MCH 32 (26-34) pg MCHC 34 (32-36) gm/dL RDW Coeff of Betty 11.9 (11.5-15.5) % Plt Count 153 (140-440) K/uL Neut % (Auto) 59.3 (42.0-72.0) % Lymph % (Auto) 25.2 (20-44) % [place] % (Auto) 11.6 H (0.0-11.0) % Eos % (Auto) 3.3 (0.0-7.0) % Baso % (Auto) 0.3 (0.0-3.0) % Neut # (Auto) 3.56 (1.7-7.0) K/uL Lymph # (Auto) 1.52 (0.90-2.90) K/uL [place] # (Auto) 0.70 (0.00-0.90) K/UL Eos # (Auto) 0.20 (0.00-0.50) K/uL Baso # (Auto) 0.02 (0.00-0.30) K/uL INR 2.94 H (0.91-1.10) Sodium 140 (135-149) mmol/L Potassium 3.3 L (3.6-5.1) mmol/L Chloride 102 (96-114) mmol/L Carbon Dioxide 35 H (20-32) mmol/L BUN 25 (7-30) mg/dL Creatinine 1.0 (0.5-1.5) mg/dL Estimated Creat Clear 54.75 Estimated GFR 73 ml/min Glucose 107 (60-115) mg/dL Calcium 9.0 (8.4-10.6) mg/dL C-Reactive Protein 0.5 (0.5-1.0) mg/dL Urine Color Red A (Yellow) Urine Appearance Cloudy A (Clear) Urine pH 7.5 (5.0-8.5) Ur Specific [place] 1.020 (1.000-1.030) Urine Protein 1+ A (Negative) Urine Glucose (UA) Negative (Negative) Urine Ketones Negative (Negative) Urine Blood 3+ A (Negative) Urine Nitrite Negative (Negative) Urine Bilirubin Negative (Negative) Urine Urobilinogen 0.2 (0.2-1.0) Ur Leukocyte Esterase Negative (Negative) Urine RBC >100 A (0-2) Urine WBC 0-2 (0-5) Ur Squamous Epith Cells None (None-Few) Urine Bacteria None (None) Imaging Data CT scan - pelvis: Attestation: I have reviewed the pertinent imaging results. My impression: No acute findings, lots of chronic appearing changes including degenerative lumbar spine disease, no obvious masses. Radiologist's impression: IMPRESSION: No specific visible cause for hematuria on this noncontrast exam. There are very small intrarenal calculi but there is no evidence of current or recent obstructive uropathy. Other nonacute appearing findings as discussed above. Discharge Plan Discharge Clinical Impression: Intermittent gross hematuria Patient Disposition: Home w/ Parent or Adult Condition: Stable Instructions: Hematuria (ED) Additional Instructions: As we discussed, there is no obvious reason for the blood in your urine that we can find in the emergency room. Unfortunately, we do not have the ability to do a complete workup in this setting. This definitely needs further workup by a urologist. I have placed a referral for this appointment. If you do not hear from them within a few days, please call your primary care provider to have them put in a referral also. Your INR is in perfect range. Your blood work tells me that you are not losing a significant amount of blood. Please stay on your Coumadin. It is okay if this appointment takes a few weeks. They will likely do more testing. Come back to the emergency room if you start having a fever over 100.4, severe weakness, severe abdominal pain or any other emergent type symptoms or if you are completely unable to urinate. Activity Level: No Restrictions Discharge Diet: Regular Prescriptions: No Action atorvastatin 40 mg tablet 40 mg PO HS fluticasone propion-salmeterol 113-14 mcg/actuation aerosol powdr breath activated 1 inh INHALATION BID lisinopril 20 mg tablet 20 mg PO DAILY metoprolol succinate 50 mg tablet extended release 24 hr 75 mg PO DAILY mirtazapine 7.5 mg tablet 7.5 mg PO HS omeprazole 20 mg capsule,delayed release(DR/EC) 20 mg PO DAILY tamsulosin 0.4 mg capsule 0.8 mg PO DAILY triamterene-hydrochlorothiazid 37.5-25 mg capsule 1 cap PO DAILY Patient Comments: TAKE 1 CAPSULE BY MOUTH EVERY MORNING warfarin 2 mg tablet 4 - 6 mg PO DAILY Rx Instructions: 6 MG ON TUESDAY AND 4 MG OTHER DAYS OR DIRECTED guaifenesin 100 mg/5 mL Liquid 100 - 200 mg PO Q4H PRN (Reason: Cough) Qty: 320 0RF atropine [Isopto Atropine] 1 % Drops 1 drp sublingual Q2H PRN (Reason: excessive secretions) Qty: 30 0RF metronidazole 500 mg tablet 500 mg PO Q12H Qty: 10 0RF Follow Up/Referrals: Stephen Henry MD [Referring] - 2 Weeks (first available urology, any provider OK. Intermittent hematuria, hx prostate cancer) Lee Broderick MD [Primary Care Provider] - Stand Alone Forms: [facility] Info Instructions
[2022-08-12 06:54] LABS: Basophils Absolute Auto 0.02 K/uL (0.00-0.30); Basophils Percent Auto 0.3 % (0.0-3.0); Eosinophils Percent Auto 3.3 % (0.0-7.0); Hematocrit 44.5 % (37.0-53.0); Hemoglobin* 15.1 gm/dL (13.5-17.5); Immature Granulocytes Abs Auto 0.02 K/uL (0.00-0.30); Immature Granulocytes Pct Auto 0.3 %; Lymphocytes Absolute Auto 1.52 K/uL (0.90-2.90); Lymphocytes Percent Auto 25.2 % (20-44); Mean Corpuscular HGB Conc 34 gm/dL (32-36); Mean Corpuscular Hemoglobin 32 pg (26-34); Mean Corpuscular Volume 95 fL (80-100); Monocytes Percent Auto 11.6 % (0.0-11.0); Neutrophils Absolute Auto 3.56 K/uL (1.7-7.0); Neutrophils Percent Auto 59.3 % (42.0-72.0); Platelet Count* 153 K/uL (140-440); RDW Coefficient of Variation % 11.9 % (11.5-15.5); Red Blood Count 4.71 m/uL (4.30-5.90); White Blood Count* 6.02 K/uL (4.50-11.00)
[2022-08-12 06:57] LABS: Slide Review Reflex No
[2022-08-12 07:15] LABS: Chloride* 102 mmol/L (96-114); Potassium* 3.3 mmol/L (3.6-5.1); Sodium* 140 mmol/L (135-149)
[2022-08-12 07:16] LABS: INR 2.94 (0.91-1.10)
[2022-08-12 07:17] LABS: Est. Creatinine Clearance* 54.75; Estimated Glomerular Filt Rate 73 ml/min
[2022-08-12 07:18] LABS: Blood Urea Nitrogen* 25 mg/dL (7-30); Carbon Dioxide* 35 mmol/L (20-32); Glucose* 107 mg/dL (60-115)
[2022-08-12 07:21] LABS: C Reactive Protein* 0.5 mg/dL (0.5-1.0)
[2022-08-12 07:44] LABS: Appearance Urine Cloudy (Clear); Bilirubin Urine Negative (Negative); Blood Urine 3+ (Negative); Color Urine Red (Yellow); Glucose Urine Negative (Negative); Ketones Urine Negative (Negative); Leukocyte Esterase Urine Negative (Negative); Nitrite Urine Negative (Negative); Protein Urine 1+ (Negative); Urobilinogen Urine 0.2 (0.2-1.0); pH Urine 7.5 (5.0-8.5)
[2022-08-12 08:06] LABS: RBC Urine >100 (0-2); WBC Urine 0-2 (0-5)
== END 2022-08-12 08:17 | disposition home or self-care (01) ==
PROVIDERS: Emergency Provider Family Medicine; PCP Family Medicine
DX: R31.9 Hematuria, unspecified (principal)
CPT/HCPCS: 36415; 74176; 80048; 81003; 81015; 85025; 85610; 86140; 99283; 99284; J7120

== ENCOUNTER 2022-09-03 17:00 | Outpatient (RCR) | payer MEDICARE, BC, SELFPAY | END 2022-11-26 09:20 | disposition home or self-care (01) | PROVIDERS: PCP Family Medicine; Visit Provider Family Medicine | DX: M47.816 Spondylosis without myelopathy or radiculopathy, lumbar region (principal); M54.16 Radiculopathy, lumbar region; M51.36 Other intervertebral disc degeneration, lumbar region; M48.061 Spinal stenosis, lumbar region without neurogenic claudication; Z51.89 Encounter for other specified aftercare | CPT/HCPCS: 97110; 97140; 97161 ==

== ENCOUNTER 2023-08-24 14:03 | Outpatient (CLI) | payer MEDICARE, BC, SELFPAY ==
--- NOTE | 2023-08-24 14:30 | CRLHL7_ITS ---
For Patients: As a result of the Century Cures Act, medical imaging exams and procedure reports are released immediately into your electronic medical record. You may view this report before your referring provider. If you have questions, please contact your health care provider. Indication: Lumbar facet arthropathy. Technique: T2, T1, and STIR sagittal as well as T1 and T2 axial sequences were obtained. No IV contrast. Comparison: 04/22/2022. Findings: Alignment is near anatomic and unchanged from 04/22/2022. No evidence for recent fracture, worrisome bone lesion or pars defect. There is minimal reactive marrow signal change along segments of the vertebral endplates at L3-4 and L4-5. There is moderate thecal sac effacement at L1-2 and L4-5, unchanged. No citlali high-grade central canal stenosis. The conus and cauda equina are unremarkable, with the tip of the cord at the L1-2 interspace level. Screw fixation of the right sacroiliac joint. No other paraspinal findings. T12-L1: Minor facet degenerative changes. The disc is negative. The foramina are patent. No change from 04/22/2022. L1-2: Moderate facet osteoarthritis. Ligamentum hypertrophy is worse on the right. Mild posterior disc bulging. These findings combine to cause moderate effacement of the thecal sac. There is also moderately severe narrowing of the left subarticular recess with potential impingement on the left L2 root. Stable. L2-3: Mild disc and facet degenerative change with low-grade foraminal narrowing. Stable. L3-4: Advanced disc degeneration, slightly progressed from 04/22/2022. Posterior disc margin is mildly eccentric towards the right. Moderate facet osteoarthritis. Moderately severe right subarticular recess narrowing with apparent impingement on the right L4 root. Moderate foraminal narrowing. No interval change. L4-5: Moderately severe facet osteoarthritis. Mild disc degeneration. Moderate effacement of the thecal sac. Mild narrowing of the neural foramina. Moderate narrowing of the left subarticular recess with potential impingement on the left L5 root. Stable. L5-S1: Moderate-sized right central and subarticular extrusion with impingement on the right S1 nerve root. This is unchanged from 04/22/2022. Moderate facet osteoarthritis. Impression: 1. At L3-4 the advanced disc degeneration has slightly progressed from 04/22/2022. There is moderately severe right subarticular recess narrowing at this level, with apparent impingement of the right L4 root. 2. At L5-S1 there is a moderate-sized right central and subarticular extrusion causing citlali impingement on the right S1 nerve root, unchanged. 3. At L1-2 there is moderately severe narrowing of the left subarticular recess with potential impingement on the left L2 root, unchanged. 4. At L4-5 there is moderate narrowing of the left subarticular recess with potential impingement on the left L5 root, unchanged. 5. Moderate thecal sac effacement at both L1-2 and L4-5, unchanged. Dictated by Scottie Kang MD @ 08/26/2023 8:57:50 AM (Electronically Signed)
== END 2023-08-24 14:04 | disposition home or self-care (01) ==
LOC: MRI 14:03
PROVIDERS: PCP Family Medicine; Visit Provider Family Medicine
DX: M47.816 Spondylosis without myelopathy or radiculopathy, lumbar region (principal); M51.36 Other intervertebral disc degeneration, lumbar region; M54.16 Radiculopathy, lumbar region; M48.061 Spinal stenosis, lumbar region without neurogenic claudication
CPT/HCPCS: 72148

== ENCOUNTER 2023-10-03 02:34 | Outpatient (CLI) | payer MEDICARE, BC, SELFPAY ==
--- OUTSIDE RECORDS SUMMARY | 2023-10-06 23:28 | XMS_ITS | Clinical Summary ---
Author Organization [employer] Address [place], [place] [address] Care Team Providers Care Electric Tape Slitter Name Role Phone Vira Polanco AuD Unavailable [phone] Lee Broderick MD Primary Care Provider Allergies [...] Date Diagnosed Date Suprapubic catheter placed 08/25/23 Archer 09/02/19 24 Prostate cancer 02/21/2023 Asbestosis 07/22/2021 Chronic obstructive pulmonary disease 06/09/2021 Restrictive lung disease 06/09/2021 CAD in [place] artery: JANEY to RCA 2019. Anticoagulation monitoring, [...] in stool 07/14/2006 10/20/2007 Diverticulitis of colon (dani costa mention of hemorrhage) 07/14/2006 05/22/2008 Overview: Hx of in the past x 1 per patient. Now with recurrence - transferred from [facility] due to failure to resolve Diverticulosis of colon (dani costa mention of hemorrhage) 05/29/2006 07/29/2020 HX OF DVT 05/29/2006 07/29/2020 Overview: 10 yrs ago, s/p leg injury Emphysematous bleb 9 Dyspepsia and other specifie d disorders of function of stomach 07/29/2020 Nocturia 07/29/2020 Encounters Date Type Department Care Team Description 10/03/2023 Orders Only [facility] Scanner 1 scan: [facility]-Ord[facility], 10/03/2023 09/21/2023 4:00 PM CDT Office Visit [facility] [address] [place] [address] Hitesh Akbar MD Musculoskeletal Problem (Follow up back pain) 09/21/2023 Travel 09/15/2023 Telephone [facility] [address] [facility] [address] Hitesh Akbar MD Questions (/) 09/14/2023 Anticoagulation (warfarin) [facility] [address] [place] [facility] [place] [address] 1, [facility] Anticoagulation 09/13/2023 2:30 PM CDT Orders Only [facility] [address] [facility] [address] Lab, [place] [facility] 09/13/2023 Travel 09/12/2023 Telephone [facility] [address] [facility] [address] 1, [facility] Anticoagulation (Refill warfarin) 09/02/2023 2:00 PM CDT Office Visit [facility] [address] [place] [address] Gian Rodas MD Teleheart, [place] Follow Up (Arteriosclerotic heart disease) 09/02/2023 8:25 AM CDT Office Visit [facility] [address] [place] [place] [address] Lee Broderick MD Medicare ANNUAL (subsequent) Visit (88 year old) 09/02/2023 Anticoagulation (warfarin) [facility] [address] [place] [place] [address] 1, [facility] Anticoagulation 09/02/2023 Travel 09/01/2023 Telephone [facility] [address] [facility] [place] [address] Hitesh Akbar MD Results (MRI) 08/29/2023 Orders Only [facility] [address] Hitesh Akbar MD 1 scan: (1-Ord) [place], LUMBAR SPINE WO CON, 08/24/2023 08/24/2023 Orders Only [facility] Scanner 1 scan: (1-Ord) [facility], MR LUMBAR SPINE WO, 08/24/2023 08/22/2023 Anticoagulation (warfarin) [facility] [address] [place] [address] 1, [facility] Anticoagulation (Chart Update) 08/18/2023 8:45 AM CDT Orders Only [facility] [address] [place] [place] [address] Lab, [place] [facility] 08/18/2023 Anticoagulation (warfarin) [facility] [place] [address] 1, [facility] Anticoagulation 08/18/2023 Telephone [facility] [address] [place] [address] Hitesh Akbar MD imaging order needed 08/18/2023 Telephone [facility] [address] [place] [address] Hitesh Akbar MD 08/18/2023 Travel 08/12/2023 10:55 AM CDT Office Visit [facility] [address] [place] [address] Lee Broderick MD Follow Up (Diverticulitis - still having right side abdomen and pain back) 08/12/2023 Anticoagulation (warfarin) [address] [address] 1, [facility] Anticoagulation 08/12/[address] [address] Lee Broderick MD Anticoagulation 08/12/2023 Travel 08/12/2023 Nurse Triage [address] [address] Lee Broderick MD Hearing Loss (cleaned out ears and couldn't hear) 08/05/2023 10:30 AM CDT Ancillary Procedure [address] [address] 08/05/2023 9:05 AM CDT Office Visit [address] [address] Camila Hernandes MD Abdominal Pain (right side abdominal pain in front and back for 2-3 weeks, getting worse/) 08/05/2023 Anticoagulation (warfarin) [address] [address] Lee Broderick MD Error-please disregard (opened in error) 08/05/2023 Anticoagulation (warfarin) [address] [address] 1, [facility] Anticoagulation (Chart Update) 08/05/[address] [address] Lee Broderick MD Anticoagulation (BPA- Metronidazole) 08/05/2023 Travel 08/05/[address] [address] Jessica Day RN Abdominal Pain 08/05/2023 Telephone [facility] [address] [place] [address] Lee Broderick MD Error-please disregard 08/01/2023 Refill [facility] [address] [place] [address] Meghann Gonzalez MD Refill Request (Nitrostat) 07/27/2023 Anticoagulation (warfarin) [facility] [address] [place] [address] 1, [facility] Anticoagulation (Chart Update) 07/27/2023 Telephone [facility] [address] [place] [address] Lee Broderick MD Anticoagulation (Surgery scheduled for 08/08/2023) 07/17/2023 Refill [facility] [address] [place] [address] Lee Broderick MD Refill Request (Warfarin) from Last 3 Months Immunizations Name Administration Dates Next Due COVID-19 Vaccine Spikevax (M oderna 50mcg/0.5mL) 12YO+ [id number] Formula PF 12/07/2022 COVID-19 vaccine (Nasseo-Bio NTech 30mcg/0.3mL) 12YO+ BIVALENT PF, MDV 08/27/2022,10/26/2021 [...] CDT Respiratory Rate 16 02/10/2023 6:16 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 Oxygen Saturation 94% 09/21/2023 3:53 PM CDT Inhaled Oxygen Concentration - - Weight 97.3 kg (214 lb 9.6 oz) 09/21/2023 3:53 P M CDT shoes on Height 176.5 cm (5' 9.49) 09/02/2023 8:17 AM CD T Body Mass Index 31.25 09/02/2023 8:17 AM CDT Plan of Treatment Upcoming Encounters Date Type Department Care Team (Late st Contact Info) Description 10/14/2023 2:15 PM CDT Office Visit [facility] [address] [place] [address] Lindsey Razo MD [address] [place] [address] 10/27/2023 1:20 PM CDT Office Visit [facility] [address] [place] [address] Hitesh Akbar MD [address] [place] [address] Health Maintenance Due Date Last Done Comments COVID-19 vaccine series (2022- season) 2023 12/07/2022, 08/27/2022, 10/26/2021, Additional history [...] history exists Medical Devices Implanted Type Area Mica Laminating Machine Feeder Device Identifier Shelf Expiration Date Model / Serial / Lot Mesh Prolene Hernia Extended System - [id number] Implanted:Qty: 1 on 10/21/2007 at [facility] General Surgery Implants Right: Abdomen [employer] [facility] / [id number] Procedures Procedure Name Priority Date/Time Associated Diagnosis Comments SCAN-RADIOLOGY REPORT 10/03/2023 12:00 AM CDT PROTIME-INR STAT 09/13/2023 2:20 PM CDT Paroxysmal [...] colon from Last 3 Months Results * SCAN-RADIOLOGY REPORT (10/03/2023 12:00 AM CDT) Anatomical Region Laterality Modality Other Scanner OTHER * (ABNORMAL) PROTIME-INR (09/13/2023 2:20 PM CDT) Only the most recent of3 resultswithin the time period is included. INR 3.0(H) <1.3 09/13/2023 9:55 PM CDT [facility] PROTIME 32.9(H) 10.3 - 12.3 sec 09/13/2023 9:55 PM CDT [facility] Blood BLOOD SPECIMEN / Unknown Venipuncture / Unknown 09/13/2023 2:20 PM CDT 09/13/2023 2:21 PM CDT Narrative [facility] - 09/13/2023 9:55 PM CDT ?Therapeutic Range [...] is on UFH. Lee Broderick MD HEMATOLOGY [facility] [address] [place] [address], * (ABNORMAL) LIPID PANEL W REFLEX MEASURED LDL (09/02/2023 9:05 AM CDT) CHOLESTEROL,TOTAL 134 100 - 199 mg/dL 09/02/2023 7:52 PM CDT [facility] Comment: Cholesterol, Total Reference Ranges Desirable <200 mg/dL Borderline 200-239 mg/dL High >=240 mg/dL TRIGLYCERIDES 143 <150 mg/dL 09/02/2023 7:52 PM CDT [facility] HDL CHOLESTEROL 36(L) >40 mg/dL 7:52 PM CDT [facility] NON-HDL CHOLESTEROL 98 <145 mg/dl 09/02/2023 7:52 PM CDT [facility] CHOL/HDL RATIO 3.72 <4.50 09/02/2023 7:52 PM CDT [facility] LDL CHOLESTEROL 69 <=130 mg/dL 09/02/2023 7:52 PM CDT [facility] VLDL CHOLESTEROL 29 <=30 mg/dL 09/02/2023 7:52 PM CDT [facility] PROVIDER ORDERED STATUS RANDOM 09/02/2023 7:52 PM CDT [facility] Blood BLOOD SPECIMEN / Unknown Venipuncture / Unknown 09/02/2023 9:05 AM CDT 09/02/2023 9:05 AM CDT Lee Broderick MD CHEMISTRY Performing Organization Address City/[facility]/ZIP Co de Phone Number [facility] [address] [place] [address], * PSA TOTAL (DIAGNOSTIC) (09/02/2023 9:05 AM CDT) PSA TOTAL (DIAGNOSTIC) <0.02 <4.00 ng/mL 09/02/2023 7:54 PM CDT [facility] Blood BLOOD SPECIMEN / Unknown Venipuncture / Unknown 09/02/2023 9:05 AM CDT 09/02/2023 9:05 AM CDT Narrative [facility] - 09/02/2023 7:54 PM CDT The test [...] be used interchangeably. Lee Broderick MD CHEMISTRY Performing Organization Address City/[facility]/ZIP Co de Phone Number [facility] [address] [place] [address], * SCAN-MRI INTERPRETATION (08/24/2023 12:00 AM CDT) Anatomical Region Laterality Modality Other Scanner OTHER * MR SPINE LUMBAR WO (08/24/2023 12:00 AM CDT) Anatomical Region Laterality Modality Spine, LUMBAR SPINE Magnetic Res onance Hitesh Akbar MD MR * (ABNORMAL) INR,POCT (08/18/2023 8:46 AM CDT) INR 2.3(H) <1.3 08/18/2023 8:48 AM CDT [facility] Blood BLOOD SPECIMEN / Unknown Capillary / Unknown 08/18/2023 8:46 AM CDT 08/18/2023 8:46 AM CDT Narrative [facility] - 08/18/2023 8:48 AM CDT ?Therapeutic Range 2.0-3.0 for most anticoagulated patients 2.5-3.5 or 4.0 for high risk patients Lee Broderick MD LABORATORY Performing Organization Address City/[facility]/ZIP Co de Phone Number [facility] [address] [place] [address], [place] [phone] * URINE CULTURE (08/12/2023 11:28 AM CDT) CULTURE <10,000 CFU/mL multiple organisms 08/13/2023 2:39 PM CDT [facility] Urine URINE SPECIMEN / Unknown Non-Blood / Unknown 08/12/2023 11:28 AM CDT 08/12/2023 11:28 AM CDT Lee Broderick MD MICROBIOLOGY [facility] [address] [place] [id number], [place] * UA W/ SEDIMENT EXAM REFLEXED PER CRITERIA (08/12/2023 11:28 AM CDT) COLOR Yellow Yellow Color 08/12/2023 11:33 AM CDT [facility] CLARITY Clear Clear Clarity 08/12/2023 11:33 AM CDT [facility] SPECIFIC GRAVITY,URINE 1.020 1.010, 1.015, 1.020, 1.025 08/12/2023 11:33 AM CDT [facility] PH,URINE 7.0 6.0, 7.0, 8.0, 5.5, 6.5, 7.5, 8.5 08/12/2023 11:33 AM CDT [facility] UROBILINOGEN, QUALITATIVE Normal Normal EU/dl 08/12/2023 11:33 AM CDT [facility] PROTEIN, URINE Negative Negative mg/dL 08/12/2023 11:33 AM CDT [facility] GLUCOSE, URINE Negative Negative mg/dL 08/12/2023 11:33 AM CDT [facility] KETONES,URINE Negative Negative mg/dL 08/12/2023 11:33 AM CDT [facility] BILIRUBIN,URI NE Negative Negative 08/12/2023 11:33 AM CDT [facility] OCCULT BLOOD,URINE Negative Negative 08/12/2023 11:33 AM CDT [facility] NITRITE Negative Negative 08/12/2023 11:33 AM CDT [facility] LEUKOCYTE ESTERASE Negative Negative 08/12/2023 11:33 AM CDT [facility] Urine URINE SPECIMEN / Unknown Non-Blood / Unknown 08/12/2023 11:28 AM CDT 08/12/2023 11:28 AM CDT Lee Broderick MD URINE [facility] [address] [place] [address], * (ABNORMAL) CBC WITH AUTO DIFFERENTIAL (08/12/2023 11:21 AM CDT) Only the most recent of2 resultswithin the time period is included. WHITE BLOOD COUNT 10.4 4.5 - 11.0 thou/cu mm 08/12/2023 11:26 AM CDT [facility] RED BLOOD COUNT 4.93 4.30 - 5.90 mil/cu mm 08/12/2023 11:26 AM CDT [facility] HEMOGLOBIN 16.1 13.5 - 17.5 g/dL 08/12/2023 11:26 AM CDT [facility] HEMATOCRIT 46.9 37.0 - 53.0 % 08/12/2023 11:26 AM CDT [facility] MCV 95 80 - 100 fL 08/12/2023 11:26 AM CDT [facility] MCH 32.7 26.0 - 34.0 pg 08/12/2023 11:26 AM CDT [facility] MCHC 34.3 32.0 - 36.0 g/dL 08/12/2023 11:26 AM CDT [facility] RDW 12.4 11.5 - 15.5 % 08/12/2023 11:26 AM CDT [facility] PLATELET COUNT 257 140 - 440 thou/cu mm 08/12/2023 11:26 AM CDT [facility] MPV 10.2 6.5 - 11.0 fL 08/12/2023 11:26 AM CDT [facility] % NEUT 62.8 % 08/12/2023 11:26 AM CDT [facility] % LYMPH 21.5 % 08/12/2023 11:26 AM CDT [facility] % MONO 12.6 % 08/12/2023 11:26 AM CDT [facility] % EOS 2.9 % 08/12/2023 11:26 AM CDT [facility] % BASO 0.2 % 08/12/2023 11:26 AM CDT [facility] ABSOLUTE NEUTROPHILS 6.6 1.7 - 7.0 thou/cu mm 08/12/2023 11:26 AM CDT [facility] ABSOLUTE LYMPHOCYTES 2.2 0.9 - 2.9 thou/cu mm 08/12/2023 11:26 AM CDT [facility] ABSOLUTE MONOCYTES 1.3(H) <0.9 thou/cu mm 08/12/2023 11:26 AM CDT [facility] ABSOLUTE EOSINOPHILS 0.3 <0.5 thou/cu mm 08/12/2023 11:26 AM CDT [facility] ABSOLUTE BASOPHILS 0.0 <0.3 thou/cu mm 08/12/2023 11:26 AM CDT [facility] Blood BLOOD SPECIMEN / Unknown Venipuncture / Unknown 08/12/2023 11:21 AM CDT 08/12/2023 11:22 AM CDT Lee Broderick MD HEMATOLOGY [facility] [address] [place] [address], * CT ABDOMEN PELVIS STONE PROTOCOL WO [...] For Patients: ??As a result of the 21st Century Cures Act, medical imaging exams and [...] 136 - 145 mmol/L 08/05/2023 1:24 PM [facility] POTASSIUM 3.9 3.5 - 5.1 mmol/L 08/05/2023 1:24 PM [facility] CHLORIDE 100 98 - 107 mmol/L 08/05/2023 1:24 PM [facility] CO2,TOTAL 32(H) 22 - 29 mmol/L 08/05/2023 1:24 PM [facility] ANION GAP 9 5 - 18 08/05/2023 1:24 PM [facility] GLUCOSE 103(H) 70 - 99 mg/dL 08/05/2023 1:24 PM [facility] CALCIUM 9.8 8.8 - 10.2 mg/dL 08/05/2023 1:24 PM [facility] BUN 20 8 - 23 mg/dL 08/05/2023 1:24 PM [facility] CREATININE 1.01 0.70 - 1.20 mg/dL 08/05/2023 1:24 PM [facility] BUN/CREAT RATIO 20 10 - 20 4 1:24 PM [facility] eGFR 72(L) >90 mL/min/1.7 3m2 08/05/2023 1:24 PM [facility] Comment:As of 2021, eG FR is calculated by the CKD-EPI creatinine equation without race adjustment. ??eGFR can be influenced by muscle mass, exercise, and diet. ??The reported eGFR is an estimation only and is only applicable if the renal function is stable. ALBUMIN 4.0 4.0 - 4.9 g/dL 08/05/2023 1:24 PM [facility] PROTEIN,TOTAL 7.4 6.0 - 8.0 g/dL 08/05/2023 1:24 PM [facility] BILIRUBIN,TOTAL 2.4(H) 0.0 - 1.2 mg/dL 08/05/2023 1:24 PM [facility] ALK PHOSPHATASE 93 40 - 129 IU/L 08/05/2023 1:24 PM [facility] ALT (SGPT) 9(L) 10 - 50 IU/L 08/05/2023 1:24 PM [facility] AST (SGOT) 25 10 - 50 IU/L 08/05/2023 1:24 PM [facility] Blood BLOOD SPECIMEN / Unknown Venipuncture / Unknown 08/05/2023 9:52 AM CDT 08/05/2023 9:53 AM T Camila Hernandes MD CHEMISTRY [facility] [address] [place] [address] from Last 3 Months Advance Directives Documents on File Type Date Recorded 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
--- OUTSIDE RECORDS SUMMARY | 2023-10-06 23:28 | XMS_ITS | Continuity of Care Document ---
Author Name [facility] Organization [facility] Care Team Providers Care Graphic Art Designer Name Role Phone [facility] Unavailable Unavailable Problems Combined list of problems from Department of Defense and Veterans [facility] facilities. It does not include entries that were removed or entered in error. Problem Status Onset Date Problem Type Date of Resolution Comments Source Diagnosis: ICD-10-CM Z46.1 Encounter for fitting and adjustment of hearing aid Active Diagnosis [facility] Diagnosis: ICD-10-CM Z01.118 Encntr for exam of ears and hearing w oth abnormal findings Active Diagnosis [facility] Encounters Combined list of: 1) Encounters from Department of Veterans Affairs facilities going back up to thelast 18 months. 2) Encounters from the Department of [facility] facilities going back up to 280 months. Location Location Details Encounter Type Encounter Number Reason For Visit Attending Provider ADM Date DC Date Status Disposition Source [facility] Outpatient Encounter [id number] 06/19 [facility] HEARING AID EXAM BOTH EARS [id number] Diagnos is: ICD-10- CM Z01.118 Encntr for exam of ears and hearing w oth abnorma l finding s
CHAYITO NORIEGA OL T 07/11 [facility] CONFORMITY EVALUATION [id number] Diagnos is: ICD-10- CM Z46.1 Encount er for fitting and adjustm ent of hearing aid<br/ > PEREZ HAIDER 08/15 [facility] Plan of Care List of future care activities from Department of Veterans [facility] facilities. Additional future care activities may be listed in the Assessment and Plan section. Date/Time Care Activity Care Activity Detail Facili ty 10/20/2023 AMBULATORY - SURGERY AMBULATORY - SURGERY [facility]
--- OUTSIDE RECORDS SUMMARY | 2023-10-06 23:28 | XMS_ITS | Clinical Summary ---
Author Organization [facility] Address [address] [place] [address] Care Team Providers Care Body Work Auto Trimmer Name Role Phone Elsewhere, Pcp Primary Care Provider Unavailabl e Source Comments Patient records contain information from all sites at [facility]. For routine questions regarding patient records, call [phone] during business hours, M-F 8:00 AM - 5:00 PM Central Time. Record requests for emergency care only can be directed to [phone] at any time.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 Appt Request 08/25/2023 7:59 AM CDT Anesthesia Event Department of Radiology in [address] [phone] Joan Howell APRN, JOCKEY'S AGENT, DNAP Mary Montano M.D. 08/25/2023 6:30 AM CDT - 08/25/2023 10:37 AM CDT Hospital Encounter Department of Radiology in [address] [phone] Xochitl Aguillon APRN, C.N.P., D.N.P. Jonathan Thrasher M.D. Isaac, Onyedika P, M.D. Discharge Disposition: Home or Self Care 08/17/2023 Clinical Communication Department of Radiology in [address] [phone] Shima Markham, RPablo 08/05/2023 Clinical Communication Department of Urology in [address] [phone] Wade Amanda M.D. Phone call 07/29/2023 1:00 PM CDT Internal E-Consult Department of Vascular Medicine in [place], [place] [address] [place] [phone] María Thomas APRN, C.N.P., M.S. Coronary Stent Status Post; Atrial Fibrillation Paroxysmal (HCC); Thrombosis Deep Vein Personal History 07/27/2023 Clinical Communication Department of Urology in [place], [place] [address] [place] [phone] Wade Amanda M.D. 07/25/2023 2:30 PM CDT Nurse Only Department of Urology in [place], [place] [address] [place] [phone] Xochitl Aguillon APRN, C.N.P., Kaycee.N.PYamilex Ga R.N. Urinary Retention 07/14/2023 3:30 PM CDT Virtual Visit Department of Urology in [place], [place] [address] [place] [address] Wade Amanda M.D. 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 Procedure 07/11/2023 Clinical Communication Department of Urology in [place], [place] [address] [place] [address] Wade Amanda M.D. from Last 3 Months [...] drink = 0.6 oz pur e alcohol) [facility] OutboundEngineities Answer Date Recorded In the past 12 months has e [employer], gas, oil, or water [employer] threatened to shut off services in your [...] often do you attend chur ch or confucianism services? More than 4 times per year 06/09/2022 Do you belong to any clubs o r organizations such as nondenominational groups, unions, fraternal or athletic groups, or [...] Answer Date Recorded PHQ-2 Score 0 09/21/2018 [facility] of Occupat ional Health - Occupational Stress [...] Sex Assigned at Male 01/03/2018 1:26 PM BEAUTY CULTURIST APPRENTICE Gender Identity Not on file Sexual Orientation Straight 01/03/2018 1: 26 PM BEAUTY CULTURIST APPRENTICE Last Filed Vital Signs Vital Sign Reading [...] Care Team (Late st Contact Info) Description 10/11/2023 10:00 AM CDT Procedure visit Department of Urology in [place], [place] [address] [place] [phone] Wade Amanda M.D. [address] [place] [phone] 10/13/2023 8:30 AM CDT Procedure visit Department of Dermatology in [place], [place] [address] [place] [phone] Antolin Ibrahim M.D. [address] [place] [phone] 11/10/2023 10:45 AM CDT Procedure visit Department of Urology in [place], [place] [address] [place] [phone] Wade Amanda M.D. [address] [place] [phone] Health Maintenance Due Date Last Done Comments Depression Screening (Annual PHQ-2) 02/07/2023 COVID-19 Vaccine (8 - 2022-2 4 season) 2023 12/07/2022, 08/27/2022, 10/26/2021, Additional history exists DTaP,Tdap,and Td Vaccines (2 - Td or Tdap) 06/14/2023 06/13/2013, 05/13/2008 Influenza Vaccine (#1) 2023 , 10/26/2021, 10/30/2020, Additional history exists Creatinine Level (Kidney Fun ction Test) 08/04/2024 08/05/2023, 02/10/2023, 09/09/2022, Additional history exists Potassium Level 08/04/2024 08/05/2023, 0 05/2023, 08/27/2022, Additional history exists Sodium Level 08/04/2024 08/05/2023, 0 05/2023, 08/27/2022, Additional history exists Zoster Vaccines Completed 11/06/2018, 08/08, 02/11/2011 Pneumococcal vaccine (65+ years) Completed 08/27/2022, 07/03/2014, 05/22/2008, Additional history exists Fall Risk Screen (Annual) Completed 08/25/2023 Medical Devices Implanted Type Area Recreational Therapy Aide Device Identifier Shelf Expiration Date Model / Serial / Lot Infuse Bmp Xxsmall - [id number] [id number] Implanted:Qty: 1 on 10/26/2016 Bone or Tissue Other/Legacy - See Implant Description Other/Legacy - See Implant Description Description:Device Manufactu rer - [employer]. Body Location - Other. arthrodesis. Device Status Text - [id number]. Stimublast Dbm Gel 5cc - [id number] [id number] Implanted:Qty: 1 on 10/26/2016 Bone or Tissue Other/Legacy - See Implant Description Arthrex Description:Device Manufactu rer - Ar[employer]rex. Body Location - Other. arthrodesis. Device Status Text - [id number]. Stnt Synergy Art Rx3.5x16 - [id number] Implanted:Qty: 1 on 03/06/2018 by Farheen Branch M.D. at [facility] Cardiac Stent N/A: Coronary [employer] 12/07/2019 [id number] / / [id number] Description:pRCA Simmetry Screw 12.5mm X 80 - Rosado [id number] Implanted:Qty: 1 on 10/26/2016 Hardware e.g. pins/screws /rods Other/Legacy - See Implant Description Z[employer]ga Technology Description:Device Manufactu rer - [employer]. Body Location - Other. Right. Device Status Text - [id number]. Simmetry Washer 12.5mm - Rosado [id number] Implanted:Qty: 1 on 10/26/2016 Hardware e.g. pins/screws /rods Other/Legacy - See Implant Description [employer]ga Technology Description:Device Manufactu rer - [employer]. Body Location - Other. Right. Device Status Text - [id number]. Conversions - Default Historical Implant Device Implanted:10/26 [...] 08/25/2023 1:35 PM CDT Placement of a 16-Cypriot Chilkat tip suprapubic catheter. Recommend routine exchange in [...] was used to dilate the tract. A 20-Cypriot peel-away sheath was placed, and the 16-Cypriot suprapubic catheter was inserted into the bladder. [...] A 0.035 Nitrex wire was advanced through [id number] needle and curled within the urinary bladder. An 8 mm x 4 cm angioplasty balloon was used to dilate thetract. A 20-Cypriot peel-away sheath was placed, and the 16-Frenchsuprapubic [...] provided by Anesthesiology. IMPRESSION: Placement of a 16-Cypriot Chilkat tip suprapubic catheter. Recommendroutine exchange in 3 months. EP Xochitl Aguillon APRN, C.N.P., D.N.P. IMG IR PROCEDURES * LDA ANE NON-SURGICAL AIRWAY (08/25/2023 8:08 AM CDT) Narrative Joan Howell, EDDI, JOCKEY'S AGENT, DNAP - 08/25/2023 8:08 AM CDT Joan [...] Events: no complications Joan Howell APRN, CRNA, JACQUELINE ANESTHES [place] ORDERABLES * INR, POCT (08/25/2023 [...] LAB POCT ORDERABLES - DEVICE POC [facility] [address] [place] [address], [facility] [address] [place] [address] from Last 3 Months Advance Directives For more information, please contact: [phone] Documents on File Type Date Recorded 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 See document viewer. * Full Code (Latest Code Status on File) Date Activated Date Inactivated Comments 03/06/2018 2:36 PM 03/06/2018 9:26 PM Question Answer Comments Full Code: Not Discussed Due to: Patient not available Care Teams Body Work Auto Trimmer Relationship Specialty Start Date End Date Elsewhere, Pcp PCP - General Family Medicine 06/08/22
--- OUTSIDE RECORDS SUMMARY | 2023-10-06 23:29 | XMS_ITS | Encounter Summary ---
Author Organization [facility] Address [address] [place] [address] Care Team Providers Care Communications Senior Associate Name Role Phone Elsewhere, Pcp Primary Care Provider Unavailabl e Reason for Visit * Reason Onset Date Comments Appt Request 10/04/2023 Encounter Details Date Type Department Care Team (Late st Contact Info) Description 10/04/2023 Clinical Communication Department of Urology in [place], [place] [address] [place] [phone] Wade Amanda M.D. [address] [place] [phone] Appt Request Social History Tobacco Use Types Packs/Day Years Used Date Smoking Tobacco: Former Cigarettes 1 25 0 02/08/1956 - 02/07/1981 Passive Smoke Exposure: Past Smokeless Tobacco: Never Chew Quit: 03/03/1981 Passive Exposure Comments:No t for Years Alcohol Use Standard Drinks/Week Comments Yes 7 (1 standard drink = 0.6 oz pur e alcohol) [facility] Utilities Answer Date Recorded In the past 12 months has [facility] [employer], gas, oil, or water [employer] threatened to shut off services in your [...] often do you attend chur ch or latter-day services? More than 4 times per year 06/09/2022 Do you belong to any clubs o r organizations such as protestant groups, unions, fraternal or athletic groups, or [...] Answer Date Recorded PHQ-2 Score 0 09/21/2018 [facility] of Occupat ionca Health - Occupational Stress Questionnaire Answer Date [...] your living situation today? I have a [facility] place to live 06/22/2023 Education Answer Date Recorded What is the highest level of school you have completed or the highest degree you have received? 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 [address] [place] [phone] 10/13/2023 8:30 AM CDT Procedure visit Department of Dermatology in [place], [place] [address] [place] [phone] Antolin Ibrahim M.D. [address] [place] [phone] 11/10/2023 10:45 AM CDT Procedure visit Department of Urology in [place], [place] [address] [place] [address] Wade Amanda M.D. [address] [place] [address] documented as of this encounter Visit Diagnoses Not on filedocumented in this encounter Care Teams Communications Senior Associate Relationship Specialty Start Date End Date Elsewhere, Pcp PCP - General Family Medicine 06/08/22 documented as of this encounter
--- OUTSIDE RECORDS SUMMARY | 2023-10-06 23:29 | XMS_ITS | Encounter Summary ---
Author Organization [facility] Address [address] [place] [address] Care Team Providers Care Engineering Mgr Name Role Phone Elsewhere, Pcp Primary Care Provider Unavailabl e Reason for Visit * Reason Onset Date Comments Appt Request 06/20/2023 Encounter Details Date Type Department Care Team (Late st Contact Info) Description 06/20/2023 Clinical Communication Department of Urology in [place], [place] [address] [place] [phone] Wade Amanda M.D. [address] [place] [phone] Appt Request Social History Tobacco Use Types Packs/Day Years Used Date Smoking Tobacco: Former Cigarettes 1 25 0 02/08/1956 - 02/07/1981 Passive Smoke Exposure: Past Smokeless Tobacco: Never Chew Quit: 03/03/1981 Passive Exposure Comments:No t for Years Alcohol Use Standard Drinks/Week Comments Yes 7 (1 standard drink = 0.6 oz pur e alcohol) [facility] Utilities Answer Date Recorded In the past 12 months has [facility] [employer], gas, oil, or water [employer] threatened to shut off services in your [...] often do you attend chur ch or taoist services? More than 4 times per year 06/09/2022 Do you belong to any clubs o r organizations such as voodoo groups, unions, fraternal or athletic groups, or [...] Answer Date Recorded PHQ-2 Score 0 09/21/2018 [facility] of Occupat ionoh Health - Occupational Stress Questionnaire Answer Date [...] your living situation today? I have a [employer] [facility] [employer] [facility] place to live 06/22/2023 Education Answer Date Recorded What is the highest level of school you have completed or the highest degree you have received? 12th grade 06/09/2022 Sex and Gender Information Value Date Recorded Sex Assigned at Male 01/03/2018 1:26 PM SURGICAL ELASTIC KNITTER HAND FRAME Gender Identity Not on file Sexual Orientation Straight 01/03/2018 1: 26 PM SURGICAL ELASTIC KNITTER HAND FRAME documented as of this encounter Plan of Treatment Upcoming Encounters Date Type Department Care Team (Late st Contact Info) Description 10/11/2023 10:00 AM CDT Procedure visit Department of Urology in [place], [place] [address] [place] [phone] Wade Amanda M.D. [address] [place] [phone] 10/13/2023 8:30 AM CDT Procedure visit Department of Dermatology in [place], [place] [address] [place] [phone] Antolin Ibrahim M.D. [address] [place] [phone] 11/10/2023 10:45 AM CDT Procedure visit Department of Urology in [place], [place] [address] [place] [address] Wade Amanda M.D. 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
--- OUTSIDE RECORDS SUMMARY | 2023-10-06 23:29 | XMS_ITS | Encounter Summary ---
Author Organization [facility] Address [address] [place] [address] Care Team Providers Care Chief Clinical Officer Name Role Phone Elsewhere, Pcp Primary Care Provider Unavailabl e Reason for Visit * Reason Onset Date Comments Procedure 07/14/2023 Encounter Details Date Type Department Care Team (Late st Contact Info) Description 07/14/2023 Clinical Communication Department of Radiology in [place], [place] [address] [place] [phone] Kat Stewart, RBonyN. Procedure Social History Tobacco Use Types Packs/Day Years Used Date Smoking Tobacco: Former Cigarettes 1 25 0 02/08/1956 - 02/07/1981 Passive Smoke Exposure: Past Smokeless Tobacco: Never Chew Quit: 03/03/1981 Passive Exposure Comments:No t for Years Alcohol Use Standard Drinks/Week Comments Yes 7 (1 standard drink = 0.6 oz pur e alcohol) [facility] Utilities Answer Date Recorded In the past 12 months has [facility] [employer], gas, oil, or water [email or web address] threatened to shut off services in your [...] How often do you attend chur or rastafari services? More than 4 times per year 06/09/2022 Do you belong to any clubs o r organizations such as rastafari groups, unions, fraternal or athletic groups, or [...] Answer Date Recorded PHQ-2 Score 0 09/21/2018 [facility] of Occupat ional Health - Occupational Stress [...] your living situation today? I have a [facility] place to live 06/22/2023 Education Answer Date Recorded What is the highest level of school you have completed or the highest degree you have received? 12th grade 06/09/2022 Sex and Gender Information Value Date Recorded Sex Assigned at Male 01/03/2018 1:26 PM MACHINE OPERATORS Gender Identity Not on file Sexual Orientation Straight 01/03/2018 1: 26 PM MACHINE OPERATORS documented as of this encounter Miscellaneous Notes * Telephone Encounter - Kat Stewart R.N. - 07/27/2023 1:37 PM CDT Patient rescheduled for suprapubic catheter placement 08/07 at [facility] with Dr. Diaz. Urology contacted [facility] to help manage Coumadin prior to procedure. Urology will contact patient and let them know when to stop prior to procedure and of appointments. * Telephone Encounter - Kat Stewart R.N. - 07/14/2023 3:55 PM CDT I received a request from urology to schedule Mr. Reddy for Suprapubic catheter placement. I have Mr. Reddy scheduled to undergo Suprapubic catheter placement at [facility] with Dr. Diaz on 07/26/23. Patient is taking coumadin and ordering provider to provide patient with instructions on when to hold prior to procedure. Patient is not diabetic. RECYCLING OPERATOR needed for procedure. This procedure is scheduled as an outpatient procedure. Urology team to notify the patient of theseappointments. documented in this encounter Plan of Treatment Upcoming Encounters Date Type Department Care Team (Late st Contact Info) Description 10/11/2023 10:00 AM CDT Procedure visit Department of Urology in [place], [place] [address] [place] [phone] Wade Amanda M.D. [address] [place] [phone] 10/13/2023 8:30 AM CDT Procedure visit Department of Dermatology in [place], [place] [address] [place] [phone] Antolin Ibrahim M.D. [address] [place] [phone] 11/10/2023 10:45 AM CDT Procedure visit Department of Urology in [place], [place] [address] [place] [phone] Wade Amanda M.D. [address] [place] [phone] documented as of this encounter Visit Diagnoses Not on filedocumented in this encounter Care Teams Chief Clinical Officer Relationship Specialty Start Date End Date Elsewhere, Pcp PCP - General Family Medicine 06/08/22 documented as of this encounter
--- OUTSIDE RECORDS SUMMARY | 2023-10-06 23:29 | XMS_ITS | Encounter Summary ---
Author Organization [facility] Address [address] [place] [address] Care Team Providers Care School Photograph Editor Name Role Phone Elsewhere, Pcp Primary Care Provider Unavailabl e Reason for Visit * Reason Onset Date Comments Phone call 08/05/2023 Encounter Details Date Type Department Care Team (Late st Contact Info) Description 08/05/2023 Clinical Communication Department of Urology in [place], [place] [address] [place] [phone] Wade Amanda M.D. [address] [place] [phone] Phone call Social History Tobacco Use Types Packs/Day Years Used Date Smoking Tobacco: Former Cigarettes 1 25 0 02/08/1956 - 02/07/1981 Passive Smoke Exposure: Past Smokeless Tobacco: Never Chew Quit: 03/03/1981 Passive Exposure Comments:No t for Years Alcohol Use Standard Drinks/Week Comments Yes 7 (1 standard drink = 0.6 oz pur e alcohol) [facility] Utilities Answer Date Recorded In the past 12 months has [facility] [employer], gas, oil, or water [employer] threatened to shut off services in your [...] often do you attend chur ch or scientology services? More than 4 times per year 06/09/2022 Do you belong to any clubs o r organizations such as religion groups, unions, fraternal or athletic groups, or [...] 09/21/2018 [facility] of Occupat ional Health - Occupational [...] your living situation today? I have a [facility] place to live 06/22/2023 Education Answer Date Recorded What is the highest level of school you have completed or the highest degree you have received? 12th grade 06/09/2022 Sex and Gender Information Value Date Recorded Sex Assigned at Male 01/03/2018 1:26 PM RESOURCING CONSULTANT Gender Identity Not on file Sexual Orientation Straight 01/03/2018 1: 26 PM RESOURCING CONSULTANT documented as of this encounter Plan of Treatment Upcoming Encounters Date Type Department Care Team (Late st Contact Info) Description 10/11/2023 10:00 AM CDT Procedure visit Department of Urology in [place], [place] [address] [place] [phone] Wade Amanda M.D. [address] [place] [phone] 10/13/2023 8:30 AM CDT Procedure visit Department of Dermatology in [place], [place] [address] [place] [phone] Antolin Ibrahim M.D. [address] [place] [phone] 11/10/2023 10:45 AM CDT Procedure visit Department of Urology in [place], [place] [address] [place] [phone] Wade Amanda M.D. [address] [place] [phone] documented as of this encounter Visit Diagnoses Not on filedocumented in this encounter Care Teams School Photograph Editor Relationship Specialty Start Date End Date Elsewhere, Pcp PCP - General Family Medicine 06/08/22 documented as of this encounter
--- OUTSIDE RECORDS SUMMARY | 2023-10-06 23:29 | XMS_ITS | Referral Summary ---
Author Organization [facility] Address [address] [place] [address] Care Team Providers Care Mud Engineer Name Role Phone Elsewhere, Pcp Primary Care Provider Unavailabl e Source Comments Patient records contain information from all sites at [facility]. For routine questions regarding patient records, call [phone] during business hours, M-F 8:00 AM - 5:00 PM Central Time. Record requests for emergency care only can be directed to [phone] at any time.[facility] Encounters Date Type Department Care Team Description 10/04/2023 Clinical Communication Department of Urology in [place], [place] [address] [place] [address] Wade Amanda M.D. Appt Request 08/25/2023 7:59 AM CDT Anesthesia Event Department of Radiology in [address] [phone] Joan Howell APRN, SPORTS CARTOONIST, Mary Huertas M.D. 08/25/2023 6:30 AM CDT - 08/25/2023 10:37 AM CDT Hospital Encounter Department of Radiology in [address] [phone] Xochitl Aguillon APRN, C.N.P., D.N.P. Jonathan Thrasher M.D. Isaac, Onyedika P, M.D. Discharge Disposition: Home or Self Care 08/17/2023 Clinical Communication Department of Radiology in [address] [phone] Shima Markham R.N. 08/05/2023 Clinical Communication Department of Urology in [place], [place] [address] [place] [phone] Wade Amanda M.D. Phone call 07/29/2023 1:00 PM CDT Internal E-Consult Department of Vascular Medicine in [place], [place] [address] [place] [phone] María Thomas APRN C.N.PBony, M.S. Coronary Stent Status Post; Atrial Fibrillation Paroxysmal (HCC); Thrombosis Deep Vein Personal History 07/27/2023 Clinical Communication Department of Urology in [place], [place] [address] [place] [phone] Wade Amanda M.D. 07/25/2023 2:30 PM CDT Nurse Only Department of Urology in [place], [place] [address] [place] [phone] Xochitl Aguillon APRN, C.N.P., D.N.P. Yamilex Rodriguez, R.N. Urinary Retention 07/14/2023 Clinical Communication Department of Radiology in [address] [phone] Kat Stewart R.N. Procedure 07/14/2023 3:30 PM CDT Virtual Visit Department of Urology in [place], [place] [address] [place] [phone] Wade Amanda M.D. 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 Overview (09/10/2022): Added automatically from request for surgery [id number] Loss Hearing Sensorineural Bilateral 09/11/2012 Restrictive Lung Disease 06/17/2010 Resolved Problems Problem Noted Date Diagnosed Date Resolved Date Dyspnea On Exertion 02/24/2018 09/11/19 23 Overview (02/24/2018): Added automatically from request for surgery [id number] Shortness Of Breath 12/27/2017 09/11/19 23 Immunizations Name Administration Dates Next Due H1N1 [...] drink = 0.6 oz pur e alcohol) [facility] [employer] Answer Date Recorded In the past 12 months has e [employer], [employer], oil, or water [employer] threatened to shut off services in your [...] often do you attend chur ch or presybeterian services? More than 4 times per year 06/09/2022 Do you belong to any clubs o r organizations such as confucianist groups, unions, fraternal or athletic groups, or [...] Answer Date Recorded PHQ-2 Score 0 09/21/2018 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 [address] [place] [phone] 10/13/2023 8:30 AM CDT Procedure visit Department of Dermatology in [place], [place] [address] [place] [phone] Antolin Ibrahim M.D. [address] [place] [phone] 11/10/2023 10:45 AM CDT Procedure visit Department of Urology in [place], [place] [address] [place] [phone] Wade Amanda M.D. [address] [place] [phone] Medical Devices Implanted Type Area Talent Analyst Device Identifier Shelf Expiration Date Model / Serial / Lot Infuse Bmp Xxsmall - Rosado [id number] Implanted:Qty: 1 on 10/26/2016 Bone or Tissue Other/Legacy - See Implant Description Other/Legacy - See Implant Description Description:Device Manufactu rer - Sofchriss Danek. Body Location - Other. arthrodesis. Device Status Text - [id number]. Stimublast Dbm Gel 5cc - Rosado [id number] Implanted:Qty: 1 on 10/26/2016 Bone or Tissue Other/Legacy - See Implant Description Arthrex Description:Device Manufactu rer - Arthrex. Body Location - Other. arthrodesis. Device Status Text - [id number]. Stnt Synergy Art Rx3.5x16 - [id number] Implanted:Qty: 1 on 03/06/2018 by Farheen Branch M.D. at [facility] Cardiac Stent N/A: Coronary [employer] 12/07/2019 [id number] / / [id number] Description:pRCA Simmetry Screw 12.5mm X 80 - Rosado [id number] Implanted:Qty: 1 on 10/26/2016 Hardware e.g. pins/screws /rods Other/Legacy - See Implant Description Zyga Technology Description:Device Manufactu rer - Light[employer]. Body Location - Other. Right. Device Status Text - [id number]. Simmetry Washer 12.5mm - Rosado [id number] Implanted:Qty: 1 on 10/26/2016 Hardware e.g. pins/screws /rods Other/Legacy - See Implant Description Zyga Technology Description:Device Manufactu rer - PharmAssistant [employer] Inc. Body Location - Other. Right. Device Status Text - [id number]. Conversions - Default Historical Implant Device Implanted:10/26 [...] 08/25/2023 1:35 PM CDT Placement of a 16-Cook Islander [place] tip suprapubic catheter. Recommend routine exchange in [...] was used to dilate the tract. A 20-Cook Islander peel-away sheath was placed, and the 16-Cook Islander suprapubic catheter was inserted into the bladder. [...] A 0.035 Nitrex wire was advanced through [id number] needle and curled within the urinary bladder. An 8 mm x 4 cm angioplasty balloon was used to dilate thetract. A 20-Cook Islander peel-away sheath was placed, and the 16-Frenchsuprapubic [...] provided by Anesthesiology. IMPRESSION: Placement of a 16-[place] tip suprapubic catheter. Recommendroutine exchange in 3 months. EP Xochitl Aguillon APRN, C.N.PBony, D.N.P. IMG IR PROCEDURES * LDA ANE NON-SURGICAL AIRWAY (08/25/2023 8:08 AM CDT) Narrative Joan Howell APRN, CRNA DNAHiginio - 08/25/2023 8:08 AM CDT Joan Howell APRN, CRNA DNAHiginio ? 08/25/2023 ??8:17 AM Airway Date/Time: 08/25/2023 8:08 AM Performed by: Joan Howell APRN, CRNA DNAHiginio Authorized by: Joan Howell APRN, CRNA DNAHiginio ?? Patient location during procedure: OR / [...] LAB POCT ORDERABLES - DEVICE POC [facility] OUT[facility] [address] [place] [address], [facility] PCED [facility] Laboratories [facility] POC [address] [place] [address] from Last 3 Months Advance Directives For more information, please contact: [phone] Documents on File Type Date Recorded Patient Curriculum Director Expl anation Advance Directives 07/25/2016 12:00 AM Leg acy document. See document viewer. * Full Code (Latest Code Status on File) Date Activated Date Inactivated Comments 03/06/2018 2:36 PM 03/06/2018 9:26 PM Question Answer Comments Full Code: Not Discussed Due to: Patient not available Care Teams Mud Engineer Relationship Specialty Start Date End Date Elsewhere, Pcp PCP - General Family Medicine 06/08/22
--- OUTSIDE RECORDS SUMMARY | 2023-10-06 23:29 | XMS_ITS | Encounter Summary ---
Author Organization [facility] Address [address] [place] [address] Care Team Providers Care Farm Forestry And Garden Workers Name Role Phone Elsewhere, Pcp Primary Care Provider Unavailabl e Reason for Referral * Outpatient (Routine) - Closed Specialty Diagnoses / Procedures Referred By Alexander ridley Referred To Contact Urology Xochitl Aguillon APRN, C.N.PBony, D.N.P. [address] [place] [phone] [facility] Referral ID Status Reason Start Date Expiration Date Visits Re quested Visits Authorized [id number] Closed 07/14/2023 01/12/2025 1 1 * Outpatient (Routine) - Authorized Specialty Diagnoses / Procedures Referred By Alexander ridley Referred To Contact Urology Xochitl Aguillon APRN, C.N.PBony, D.N.P. [address] [place] [phone] Wade Amanda M.D. 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 [address] [place] [phone] Wade Amanda M.D. [address] [place] [phone] Referral ID Status Reason Start Date Expiration Date Visits Re quested Visits Authorized [id number] Closed 07/12/2023 01/10/2025 1 1 Encounter Details Date Type Department Care Team (Late st Contact Info) Description 07/14/2023 3:30 PM CDT Virtual Visit Department of Urology in [place], [place] [address] [place] [phone] Wade Amanda M.D. [address] [place] [phone] Stricture Membranous Urethral Post Traumatic Male [...] drink = 0.6 oz pur e alcohol) [facility] Utilities Answer Date Recorded In [...] often do you attend chur ch or taoism services? More than 4 times per year [...] Answer Date Recorded PHQ-2 Score 0 09/21/2018 [facility] - Occupational Stress Questionnaire Answer Date Recorded [...] Sex Assigned at Male 01/03/2018 1:26 PM HOME HEALTH CARE CASE MANAGER Gender Identity Not on file Sexual Orientation Straight 01/03/2018 1: 26 PM HOME HEALTH CARE CASE MANAGER documented as of this encounter Progress Notes * Wade Amanda M.D. - 07/14/2023 3:30 PM CDT Images from the original note were not included. SUBJECTIVE REQUESTING PROVIDER Wade Amanda M.D. REASON FOR VISIT BPH, Urethral stricture follow-up Consult conducted via real-time audio/video technology by Xochitl Aguillon APRN, C.N.Gisela, [facility] to the patient in Patient's Home HISTORY [...] CDT Procedure visit Department of Urology in [address] [phone] Wade Amanda M.D. [address] [place] [phone] 10/13/2023 8:30 AM CDT Procedure visit Department of Dermatology in [place], [place] [address] [place] [phone] Antolin Ibrahim M.D. [address] [place] [phone] 11/10/2023 10:45 AM CDT Procedure visit Department of Urology in [address] [phone] Wade Amanda M.D. [address] [place] [phone] Scheduled Referrals Name Type Priority Associated Diagnoses [...] 08/25/2023 1:35 PM CDT Placement of a 16-[place] tip suprapubic catheter. Recommend routine exchange in [...] was used to dilate the tract. A 20-Northern Irish peel-away sheath was placed, and the 16-Northern Irish suprapubic catheter was inserted into the bladder. [...] A 0.035 Nitrex wire was advanced through [id number] needle and curled within the urinary bladder. An 8 mm x 4 cm angioplasty balloon was used to dilate thetract. A 20-Northern Irish peel-away sheath was placed, and the 16-Frenchsuprapubic [...] provided by Anesthesiology. IMPRESSION: Placement of a 16-[place] tip suprapubic catheter. Recommendroutine exchange in 3 months. EP Xochitl Aguillon APRN, C.N.P., D.N.P. 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
--- OUTSIDE RECORDS SUMMARY | 2023-10-06 23:29 | XMS_ITS ---
Author Organization [facility] Address [address] [place] [address] Care Team Providers Care Substance Abuse Prevention Coordinator Name Role Phone Unavailable Unavailable Unavailable Surgery Details Not on file Complications Check Surgery Details section. Procedure Estimated Blood Loss Check Surgery Details section. Procedure Findings Check Surgery Details section. Procedure Specimens Taken Check Surgery Details section.
--- OUTSIDE RECORDS SUMMARY | 2023-10-06 23:29 | XMS_ITS | Encounter Summary ---
Author Organization [facility] Address [address] [place] [address] Care Team Providers Care Assembler Bicycle Name Role Phone Elsewhere, Pcp Primary Care Provider Unavailabl e Reason for Visit * Reason Comments Urinary Retention * Outpatient (Routine) - Closed Specialty Diagnoses / Procedures Referred By Alexander t Referred To Contact Urology Xochitl Aguillon APRN, C.N.P., D.N.P. [address] [place] [phone] [facility] Referral ID Status Reason Start Date Expiration Date Visits Re quested Visits Authorized [id number] Closed 07/14/2023 01/12/2025 1 1 Encounter Details Date Type Department Care Team (Late st Contact Info) Description 07/25/2023 2:30 PM CDT Nurse Only Department of Urology in [place], [place] [address] [place] [phone] Xochitl Aguillon APRN, C.N.PBony, D.N.P. [address] [place] [phone] Yamilex Rodriguez R.N. [address] [place] [phone] Urinary Retention Social History Tobacco Use Types Packs/Day Years Used Date Smoking Tobacco: Former Cigarettes 1 25 0 02/08/1956 - 02/07/1981 Passive Smoke Exposure: Past Smokeless Tobacco: Never Chew Quit: 03/03/1981 Passive Exposure Comments:No t for Years Alcohol Use Standard Drinks/Week Comments Yes 7 (1 standard drink = 0.6 oz pur e alcohol) [facility] Utilities Answer Date Recorded In the [...] often do you attend chur ch or zoroastrian services? More than 4 times per year 06/09/2022 Do you belong to any clubs o r organizations such as sikh groups, unions, fraternal or athletic groups, or [...] Answer Date Recorded PHQ-2 Score 0 09/21/2018 [facility]at ional [facility] - Occupational Stress Questionnaire Answer Date Recorded [...] Sex Assigned at Male 01/03/2018 1:26 PM HOUSING RELOCATION Gender Identity Not on file Sexual Orientation Straight 01/03/2018 1: 26 PM HOUSING RELOCATION documented as of this encounter Progress Notes [...] CDT Procedure visit Department of Urology in [place], [place] [address] [place] [phone] Wade Amanda M.D. [address] [place] [phone] 10/13/2023 8:30 AM CDT Procedure visit Department of Dermatology in [place], [place] [address] [place] [phone] Antolin Ibrahim M.D. [address] [place] [phone] 11/10/2023 10:45 AM CDT Procedure visit Department of Urology in [place], [place] [address] [place] [phone] Wade Amanda M.D. [address] [place] [phone] documented as of this encounter Visit Diagnoses Diagnosis Symptom Urinary- Primary documented in this encounter Care Teams Assembler Bicycle Relationship Specialty Start Date End Date Elsewhere, Pcp PCP - General Family Medicine 06/08/22 documented as of this encounter
--- OUTSIDE RECORDS SUMMARY | 2023-10-06 23:29 | XMS_ITS | Encounter Summary ---
Author Organization [facility] Address [address] [place] [address] Care Team Providers Care Processing Assistant Name Role Phone Elsewhere, Pcp Primary Care Provider Unavailabl e Encounter Details Date Type Department Care Team (Late st Contact Info) Description 08/17/2023 Clinical Communication Department of Radiology in [place], [place] [address] [place] [phone] Shima Markham, RBonyN. Social History Tobacco Use Types Packs/Day Years Used Date Smoking Tobacco: Former Cigarettes 1 25 0 02/08/1956 - 02/07/1981 Passive Smoke Exposure: Past Smokeless Tobacco: Never Chew Quit: 03/03/1981 Passive Exposure Comments:No t for Years Alcohol Use Standard Drinks/Week Comments Yes 7 (1 standard drink = 0.6 oz pur e alcohol) [facility] Utilities Answer Date Recorded In the past 12 months has [facility], gas, oil, or water [employer] threatened to shut off services in your [...] How often do you attend chur or tenriism services? More than 4 times per year 06/09/2022 Do you belong to any clubs o r organizations such as moravian groups, unions, fraternal or athletic groups, or [...] Answer Date Recorded PHQ-2 Score 0 09/21/2018 [facility] - Occupational Stress Questionnaire Answer Date [...] your living situation today? I have a [facility] place to live 06/22/2023 Education Answer Date Recorded What is the highest level of school you have completed or the highest degree you have received? 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 - 08/17/2023 11:41 AM CDT Suprapubic catheter placement procedure rescheduled at [facility] on 08/25/[address] Thrasher. Report time 7:00 a.m. at [facility]. Patient informed to hold warfarin for 5 days prior to procedure per Thrombophilia recommendations. Requesting service to notify the patient of these appointments. documented in this encounter Plan of Treatment Upcoming Encounters Date Type Department Care Team (Late st Contact Info) Description 10/11/2023 10:00 AM CDT Procedure visit Department of Urology in [place], [place] [address] [place] [phone] Wade Amanda M.D. [address] [place] [phone] 10/13/2023 8:30 AM CDT Procedure visit Department of Dermatology in [place], [place] [address] [place] [phone] Antolin Ibraihm M.D. [address] [place] [phone] 11/10/2023 10:45 AM CDT Procedure visit Department of Urology in [place], [place] [address] [place] [phone] Wade Amanda M.D. [address] [place] [phone] documented as of this encounter Visit Diagnoses Not on filedocumented in this encounter Care Teams Processing Assistant Relationship Specialty Start Date End Date Elsewhere, Pcp PCP - General Family Medicine 06/08/22 documented as of this encounter
--- OUTSIDE RECORDS SUMMARY | 2023-10-06 23:29 | XMS_ITS | Encounter Summary ---
Author Organization [facility] Address [address] [place] [address] Care Team Providers Care Shop And Alteration Tailor Name Role Phone Elsewhere, Pcp Primary Care Provider Unavailabl e Reason for Referral * Outpatient (Routine) - Closed Specialty Diagnoses / Procedures Referred By Alexander ridley Referred To Contact Pulmonary Medicine Diagnoses Restrictive Lung Disease Dyspnea On Exertion Abel Gomez M.D. [address] [place] [phone] [facility] Referral ID Status Reason Start Date Expiration Date Visits Re quested Visits Authorized [id number] Closed 11/09/2017 11/09/2018 1 1 Encounter Details Date Type Department Care Team (Late st Contact Info) Description 11/09/2017 [facility] [address] [place] [address] Abel Gomez M.D. [address] [place] [phone] Restrictive Lung Disease (Primary Dx); Dyspnea On Exertion Social History Tobacco Use Types Packs/Day Years Used Date Smoking Tobacco: Former Sex and Gender Information Value Date Recorded Sex Assigned at Male 01/03/2018 1:26 PM INTERLINE CLERK Gender Identity Not on file Sexual Orientation Straight 01/03/2018 1: 26 PM INTERLINE CLERK documented as of this encounter Plan of Treatment Upcoming Encounters Date Type Department Care Team (Late st Contact Info) Description 10/11/2023 10:00 AM CDT Procedure visit Department of Urology in [place], [place] [address] [place] [phone] Wade Amanda M.D. [address] [place] [phone] 10/13/2023 8:30 AM CDT Procedure visit Department of Dermatology in [place], [place] [address] [place] [phone] Antolin Ibrahim M.D. [address] [place] [phone] 11/10/2023 10:45 AM CDT Procedure visit Department of Urology in [place], [place] [address] [place] [phone] Wade Amanda M.D. [address] [place] [phone] Scheduled Referrals Name Type Priority Associated Diagnoses Orde r Schedule Pulmonary Medicine Referral Outpatient Referral Routine Restrictive Lung Disease Dyspnea On Exertion Expected: 11/09/2017 (Approximate), Expires: 11/09/2020 documented as of this encounter Visit Diagnoses Diagnosis Restrictive Lung Disease- Primary Dyspnea On Exertion documented in this encounter Care Teams Shop And Alteration Tailor Relationship Specialty Start Date End Date Elsewhere, Pcp PCP - General Family Medicine 06/08/22 documented as of this encounter
--- OUTSIDE RECORDS SUMMARY | 2023-10-06 23:29 | XMS_ITS | Encounter Summary ---
Author Organization [facility] Address [address] [place] [phone] Care Team Providers Care Nuclear Medicine Technician Name Role Phone Elsewhere, Pcp Primary Care Provider Unavailabl e Reason for Visit * Outpatient (Routine) - Closed Specialty Diagnoses / Procedures Referred By Alexander ridley Referred To Contact Vascular Medicine Diagnoses Coronary Stent Status Post Atrial Fibrillation Paroxysmal (HCC) Thrombosis Deep Vein Personal History Procedures Vascular Medicine - Thrombophilia periprocedural eConsult Wade Amanda M.D. [address] [place] [phone] [facility] Referral ID Status Reason Start Date Expiration Date Visits Re quested Visits Authorized [id number] Closed 07/27/2023 07/26/2024 1 1 Encounter Details Date Type Department Care Team (Latest Contact Info) Description 07/29/2023 1:00 PM CDT Internal E-Consult Department of Vascular Medicine in [place], [place] [address] [place] [phone] María Thomas APRN, C.N.P., M.S. [address] [place] [phone] Coronary Stent Status Post; Atrial Fibrillation Paroxysmal [...] drink = 0.6 oz pur e alcohol) [facility] Utilities Answer Date Recorded In the past [...] Answer Date Recorded PHQ-2 Score 0 09/21/2018 [facility] of Occupat ional Health - Occupational Stress [...] your living situation today? I have a [facility] place to live 06/22/2023 Education Answer Date Recorded What is the highest level of school you have completed or the highest degree you have received? 12th grade 06/09/2022 Sex and Gender Information Value Date Recorded Sex Assigned at Male 01/03/2018 1:26 PM FILTRATION PLANT OPERATOR Gender Identity Not on file Sexual Orientation Straight 01/03/2018 1: 26 PM FILTRATION PLANT OPERATOR documented as of this encounter Consult Notes [...] based entirely upon information available in the [facility] electronic medical record. Clinical question to be [...] minutes or more of medical review. Ask [place] Expert periprocedural anticoagulation calculator [email or web address] documented in this encounter Plan of Treatment Upcoming Encounters Date Type Department Care Team (Late st Contact Info) Description 10/11/2023 10:00 AM CDT Procedure visit Department of Urology in [place], [place] [address] [place] [phone] Wade Amanda M.D. [address] [place] [phone] 10/13/2023 8:30 AM CDT Procedure visit Department of Dermatology in [place], [place] [address] [place] [phone] Antolin Ibrahim M.D. [address] [place] [phone] 11/10/2023 10:45 AM CDT Procedure visit Department of Urology in [place], [place] [address] [place] [phone] Wade Amanda M.D. [address] [place] [phone] documented as of this encounter Visit Diagnoses Diagnosis Coronary Stent Status Post Atrial Fibrillation Paroxysmal (HCC) Thrombosis Deep Vein Personal History documented in this encounter Care Teams Nuclear Medicine Technician Relationship Specialty Start Date End Date Elsewhere, Pcp PCP - General Family Medicine 06/08/22 documented as of this encounter
--- OUTSIDE RECORDS SUMMARY | 2023-10-06 23:29 | XMS_ITS | Encounter Summary ---
Author Organization [facility] Address [address] [place] [address] Care Team Providers Care Horticultural Farmer Name Role Phone Elsewhere, Pcp Primary Care Provider Unavailabl e Reason for Referral * Outpatient (Routine) - Closed Specialty Diagnoses / Procedures Referred By Alexander t Referred To Contact Vascular Medicine Diagnoses Coronary Stent Status Post Atrial Fibrillation Paroxysmal (HCC) Thrombosis Deep Vein Personal History Procedures Vascular Medicine - Thrombophilia periprocedural eConsult Wade Amanda M.D. [address] [place] [phone] [facility] Referral ID Status Reason Start Date Expiration Date Visits Re quested Visits Authorized [id number] Closed 07/27/2023 07/26/2024 1 1 Encounter Details Date Type Department Care Team (Late st Contact Info) Description 07/27/2023 Clinical Communication Department of Urology in [place], [place] [address] [place] [phone] Wade Amanda M.D. [address] [place] [phone] Social History Tobacco Use Types Packs/Day Years Used Date Smoking Tobacco: Former Cigarettes 1 25 0 02/08/1956 - 02/07/1981 Passive Smoke Exposure: Past Smokeless Tobacco: Never Chew Quit: 03/03/1981 Passive Exposure Comments:No t for Years Alcohol Use Standard Drinks/Week Comments Yes 7 (1 standard drink = 0.6 oz pur e alcohol) [facility] Utilities Answer Date Recorded In the [...] often do you attend chur ch or samaritan services? More than 4 times per year 06/09/2022 Do you belong to any clubs o r organizations such as judaism groups, unions, fraternal or athletic groups, or [...] Answer Date Recorded PHQ-2 Score 0 09/21/2018 [place] of Occupat ional Health - Occupational Stress [...] your living situation today? I have a [facility] place to live 06/22/2023 Education Answer Date Recorded What is the highest level of school you have completed or the highest degree you have received? 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 [address] [place] [phone] 10/13/2023 8:30 AM CDT Procedure visit Department of Dermatology in [place], [place] [address] [place] [phone] Antolin Ibrahim M.D. [address] [place] [phone] 11/10/2023 10:45 AM CDT Procedure visit Department of Urology in [place], [place] [address] [place] [phone] Wade Amanda M.D. [address] [place] [phone] documented as of this encounter Visit Diagnoses Diagnosis Coronary Stent Status Post- Primary Atrial Fibrillation Paroxysmal (HCC) Thrombosis Deep Vein Personal History documented in this encounter Care Teams Horticultural Farmer Relationship Specialty Start Date End Date Elsewhere, Pcp PCP - General Family Medicine 06/08/22 documented as of this encounter
--- OUTSIDE RECORDS SUMMARY | 2023-10-06 23:29 | XMS_ITS | Encounter Summary ---
Author Organization 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 [address] [place] [phone] [facility] Referral ID Status Reason Start Date Expiration Date Visits Re quested Visits Authorized [id number] Closed 07/14/2023 07/13/2024 1 1 Encounter Details Date Type Department Care Team (Late st Contact Info) Description 08/25/2023 6:30 AM CDT - 08/25/2023 10:37 AM CDT Hospital Encounter Department of Radiology in [place], [place] [address] [place] [phone] Xochitl Aguillon APRN, C.N.P., D.N.P. [address] [place] [address] [phone] Jonathan Thrasher M.D. [address] [place] [phone] Rocio Mckinnon M.D. [address] [place] [phone] Discharge Disposition: Home or Self Care Social History Tobacco Use Types Packs/Day Years Used Date Smoking Tobacco: Former Cigarettes 1 25 0 02/08/1956 - 02/07/1981 Passive Smoke Exposure: Past Smokeless Tobacco: Never Chew Quit: 03/03/1981 Passive Exposure Comments:No t for Years Alcohol Use Standard Drinks/Week Comments Yes 7 (1 standard drink = 0.6 oz pur e alcohol) [facility] Utilities Answer Date Recorded In the past 12 months has th e [employer], gas, oil, or water [employer] threatened to shut off services in your [...] often do you attend chur ch or congregation services? 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 * Long-Term Suprapubic Catheter Care (Luxembourgish) documented in this encounter Medications at Time [...] for cares/exchanges. Please page VIR NPPA at [phone] M-F 7AM-5PM or on-call resident at [phone] after 5PM and weekends. documented in this [...] CDT Procedure visit Department of Urology in [place], [place] 200 [place] [phone] Wade Amanda M.D. 200 [place] [phone] 10/13/2023 8:30 AM CDT Procedure visit Department of Dermatology in [place], [place] [address] [place] [phone] Antolin Ibrahim M.D. [address] [place] [phone] 11/10/2023 10:45 AM CDT Procedure visit Department of Urology in [place], [place] [address] [place] [phone] Wade Amanda M.D. [address] [place] [phone] documented as of this encounter Procedures Procedure [...] LAB POCT ORDERABLES - DEVICE POC [facility] OUTPATIENT [facility] 200 [place] [address], [facility] POC 200 [place] [address] documented in this encounter Visit Diagnoses Not [...] %) injection (Xylocaine) As needed, Starting on Christelle 08/25/23 at [...] prochlorperazine). documented in this encounter Care Teams Assistant Men'S Lacrosse Coach Relationship Specialty Start Date End Date Elsewhere, Pcp PCP - General Family Medicine 06/08/22 documented as of this encounter
--- OUTSIDE RECORDS SUMMARY | 2023-10-06 23:29 | XMS_ITS | Encounter Summary ---
Author Organization [facility] Address [address] [place] [address] Care Team Providers Care Training And Development Director Name Role Phone Elsewhere, Pcp Primary Care Provider Unavailabl e Reason for Referral * Outpatient (Routine) - Closed Specialty Diagnoses / Procedures Referred By Alexander ridley Referred To Contact Urology Wade Amanda M.D. [address] [place] [phone] Wade Amanda M.D. [address] [place] [phone] Referral ID Status Reason Start Date Expiration Date Visits Re quested Visits Authorized [id number] Closed 07/12/2023 01/10/2025 1 1 Encounter Details Date Type Department Care Team (Late st Contact Info) Description 07/11/2023 Clinical Communication Department of Urology in [place], [place] [address] [place] [phone] Wade Amanda M.D. [address] [place] [phone] Social History Tobacco Use Types Packs/Day Years Used Date Smoking Tobacco: Former Cigarettes 1 25 0 02/08/1956 - 02/07/1981 Passive Smoke Exposure: Past Smokeless Tobacco: Never Chew Quit: 03/03/1981 Passive Exposure Comments:No t for Years Alcohol Use Standard Drinks/Week Comments Yes 7 (1 standard drink = 0.6 oz pur e alcohol) [facility] Utilities Answer Date Recorded In the past [...] often do you attend chur ch or mormonism services? More than 4 times per year [...] Answer Date Recorded PHQ-2 Score 0 09/21/2018 [facility] of Occupat ional Health - Occupational Stress [...] your living situation today? I have a [facility] place to live 06/22/2023 Education Answer Date Recorded What is the highest level of school you have completed or the highest degree you have received? 12th grade 06/09/2022 Sex and Gender Information Value Date Recorded Sex Assigned at Male 01/03/2018 1:26 PM ORACLE SOLUTIONS ARCHITECT Gender Identity Not on file Sexual Orientation Straight 01/03/2018 1: 26 PM ORACLE SOLUTIONS ARCHITECT documented as of this encounter Miscellaneous Notes [...] CDT Procedure visit Department of Urology in [place], [place] [address] [place] [phone] Wade Amanda M.D. [address] [place] [phone] 10/13/2023 8:30 AM CDT Procedure visit Department of Dermatology in [place], [place] [address] [place] [phone] Antolin Ibrahim M.D. [address] [place] [phone] 11/10/2023 10:45 AM CDT Procedure visit Department of Urology in [place], [place] [address] [place] [phone] Wade Amanda M.D. [address] [place] [phone] Scheduled Referrals Name Type Priority Associated Diagnoses Orde r Schedule Urology office visit (clinic) General Outpatient Referral Routine Expected: 07/14/2023, Expires: 10/11/2024 documented as of this encounter Visit Diagnoses Not on filedocumented in this encounter Care Teams Training And Development Director Relationship Specialty Start Date End Date Elsewhere, Pcp PCP - General Family Medicine 06/08/22 documented as of this encounter
--- OUTSIDE RECORDS SUMMARY | 2023-10-06 23:29 | XMS_ITS | Encounter Summary ---
Author Organization [facility] Address [address] [place] [address] Care Team Providers Care Atmospheric Drier Tender Name Role Phone Elsewhere, Pcp Primary Care Provider Unavailabl e Reason for Referral * Outpatient (Routine) - Authorized Specialty Diagnoses / Procedures Referred By Alexander ridley Referred To Contact Dermatology Diagnoses Squamous Cell Carcinoma In Situ Procedures RICCI MOHS 1-4 sites Matilda Ding M.D. [facility] Referral ID Status Reason Start Date Expiration Date V isits Requested Visits Authorized [id number] Authorized 06/15/2023 06/14/2024 1 1 Encounter Details Date Type Department Care Team (Late st Contact Info) Description 06/15/2023 Orders Only Department of Dermatology in [place], [place] [address] [place] [phone] Pasha Izaguirre M.D. [address] [place] [phone] Squamous Cell Carcinoma In Situ (Primary Dx) Social History Tobacco Use Types Packs/Day Years Used Date Smoking Tobacco: Former Cigarettes 1 25 0 02/08/1956 - 02/07/1981 Passive Smoke Exposure: Past Smokeless Tobacco: Never Chew Quit: 03/03/1981 Passive Exposure Comments:No t for Years Alcohol Use Standard Drinks/Week Comments Yes 7 (1 standard drink = 0.6 oz pur e alcohol) [facility] Utilities Answer Date Recorded In the past 12 months has e [employer], gas, oil, or water [employer] threatened to shut off services in your [...] How often do you attend chur or hinduism services? More than 4 times per year [...] Answer Date Recorded PHQ-2 Score 0 09/21/2018 [facility] of Occupat ional Health - [...] your living situation today? I have a [facility] place to live 06/22/2023 Education Answer Date Recorded What is the highest level of school you have completed or the highest degree you have received? 12th grade 06/09/2022 Sex and Gender Information Value Date Recorded Sex Assigned at Male 01/03/2018 1:26 PM BOARD SAW RUNNER Gender Identity Not on file Sexual Orientation Straight 01/03/2018 1: 26 PM BOARD SAW RUNNER documented as of this encounter Plan of Treatment Upcoming Encounters Date Type Department Care Team (Late st Contact Info) Description 10/11/2023 10:00 AM CDT Procedure visit Department of Urology in [place], [place] [address] [place] [phone] Wade Amanda M.D. [address] [place] [phone] 10/13/2023 8:30 AM CDT Procedure visit Department of Dermatology in [place], [place] [address] [place] [phone] Antolin Ibrahim M.D. [address] [place] [phone] 11/10/2023 10:45 AM CDT Procedure visit Department of Urology in [place], [place] [address] [place] [phone] Wade Amanda M.D. [address] [place] [phone] Scheduled Orders Name Type Priority Associated Diagnoses Orde r Schedule RICCI MOHS 1-4 sites Dermatology Routine Squamous Cell Carcinoma In Situ Expected: 06/29/2023, Expires: 09/14/2024 documented as of this encounter Visit Diagnoses Diagnosis Squamous Cell Carcinoma In Situ- Primary documented in this encounter Care Teams Atmospheric Drier Tender Relationship Specialty Start Date End Date Elsewhere, Pcp PCP - General Family Medicine 06/08/22 documented as of this encounter
--- OUTSIDE RECORDS SUMMARY | 2023-10-06 23:29 | XMS_ITS | Encounter Summary ---
Author Organization [facility] Address [address] [place] [address] Care Team Providers Care Refractory Technician Name Role Phone Elsewhere, Pcp Primary Care Provider Unavailabl e Encounter Details Date Type Department Care Team (Late st Contact Info) Description 08/25/2023 7:59 AM CDT Anesthesia Event Department of Radiology in [place], [place] [address] [place] [phone] Joan Howell APRN, CRNA, DNAP [address] [place] [phone] Mary Montano M.D. [address] [place] [phone] Anesthesia Record Procedure Summary Procedure Name Responsible [...] drink = 0.6 oz pur e alcohol) [facility] Utilities Answer Date Recorded In the past 12 months has [employer], gas, oil, or water [employer] threatened to shut off services in your [...] week 06/09/2022 How often do you attend [employer] [place] or druze services? More than 4 times per year 06/09/2022 Do you belong to any clubs o r organizations such as congregational groups, unions, fraternal or athletic groups, or [...] PHQ-2 Score 0 09/21/2018 [facility] of Occupat ional Health - Occupational [...] your living situation today? I have a [employer] place to live 06/22/2023 Education Answer Date Recorded What is the highest level of school you have completed or the highest degree you have received? 12th grade 06/09/2022 Sex and Gender Information Value Date Recorded Sex Assigned at Male 01/03/2018 1:26 PM MASTER NAVAL PARACHUTIST Gender Identity Not on file Sexual Orientation Straight 01/03/2018 1: 26 PM MASTER NAVAL PARACHUTIST documented as of this encounter OR Notes * Anesthesia Postprocedure Evaluation - Joan Howell APRN, CT, DNAP - 08/25/2023 8:59 AM CDT Patient: Peña Watt Finger Procedure Summary Date: 08/25/23 Room / Location: Department of Radiology in [place], [place] Anesthesia Start: 758 Anesthesia Stop: 0859 [...] of SPT Location: Department of Radiology in [place], [place] Pertinent components of the patient's history including current problem list, medical history, surgical history, family history, social history, medications and allergies were reviewed. Present illness and pre-op diagnosis were confirmed. The planned surgery / procedure was verified with the patient / legal guardian. 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 The use of blood products not discussed Approval to Proceed: approved for anesthesia documented in this encounter Plan of Treatment Upcoming Encounters Date Type Department Care Team (Late st Contact Info) Description 10/11/2023 10:00 AM CDT Procedure visit Department of Urology in [place], [place] [address] [place] [phone] Wade Amanda M.D. [address] [place] [phone] 10/13/2023 8:30 AM CDT Procedure visit Department of Dermatology in [place], [place] [address] [place] [phone] Antolin Ibrahim M.D. [address] [place] [phone] 11/10/2023 10:45 AM CDT Procedure visit Department of Urology in [place], [place] [address] [place] [phone] Wade Amanda M.D. [address] [place] [phone] documented as of this encounter Procedures Procedure [...] ?? Notable Events: no complications Joan Howell ADVERTISING MANAGER, COMMUNITY SERVICE COORDINATOR, DNAP ANESTHES [place] ORDERABLES documented in this [...] mg documented in this encounter Care Teams Refractory Technician Relationship Specialty Start Date End Date Elsewhere, Pcp PCP - General Family Medicine 06/08/22 documented as of this encounter
== END 2023-10-03 02:35 | disposition home or self-care (01) ==
LOC: AMB 10-06 23:26
PROVIDERS: PCP Family Medicine; Visit Provider Emergency Medicine
DX: R53.1 Weakness (principal)
CPT/HCPCS: A0425; A0427

== ENCOUNTER 2023-10-03 03:04 | Inpatient (IN) | payer MEDICARE, BC, SELFPAY ==
[2023-10-03] VITALS (11 sets, daily range): BP systolic 110–149; BP diastolic 61–78; PULSE 68–102; RESP 16–20; TEMP 36.4–38.3; O2SAT 93–97; BMI 30.1
--- OUTSIDE RECORDS SUMMARY | 2023-10-03 03:06 | XMS_ITS | Continuity of Care Document ---
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 It does not include entries that were removed or entered in error. 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 2) Encounters from the Department of [facility] facilities going back up to 280 months. Location Location Details Encounter Type Encounter Number Reason For Visit Attending Provider ADM Date DC Date Status Disposition Source [facility] Outpatient Encounter [id number] 06/19 [facility] IS [facility] HEARING AID EXAM BOTH EARS [id number] Diagnos is: ICD-10- CM Z01.118 Encntr for exam of ears and hearing w oth abnorma l finding s
CHAYITO NORIEGA OL T 07/11 [facility] IS [facility] CONFORMITY EVALUATION [id number] Diagnos is: ICD-10- CM Z46.1 Encount er for fitting and adjustm ent of hearing aid<br/ > PEREZ HAIDER 08/15 [facility] Plan of Care List of future care activities from Department of Veterans [facility] facilities. Additional future care activities may be listed in the Assessment and Plan section. Date/Time Care Activity Care Activity Detail Facili ty 10/20/2023 AMBULATORY - SURGERY AMBULATORY - SURGERY [facility]
--- OUTSIDE RECORDS SUMMARY | 2023-10-03 03:06 | XMS_ITS | Encounter Summary ---
Author Name [facility] [place] Organization [facility] [place] Address [address] [place] [id number] Insurance Providers: All historical and current Section Date Range: From patient's date of to the date document was created. This section includes the names of all active insurance providers for the patient. Insurance Provider Type of Coverage Plan Name Start of Policy Coverage End of Policy Coverage Group Number Member ID Insurance Provider's Telephone Number Policy Barlow's Name Patient's Relationship to Policy Barlow BS [facility] MCR (WNR) MEDICARE ADVANTAGE MCR (WNR) Feb 07, 2010 [id number] [phone] ZAN MILAN PATIENT Selected Encounter This section includes the information on record at [place] for the Encounter. Date/Time Encounter Type Encounter Description Reason Provider Source Jul 12, 2023 07:45 AM HEARING AID EXAM BOTH EARS AUDIOLOGY ICD-10-CM Z01.118 Encntr for exam of ears and hearing w oth abnormal findings TICO NORIEGA Brittani Encounter Template Text not used by [place] Assessments - Encounter Diagnoses This section includes the primary and secondary diagnoses documented for the Encounter. Date/Time Primary/Secondary Diagnosis Diagnosis Name Provider Source Jul 12, 2023 06:16 PM PRIMARY Encntr for exam of ears and hearing w oth abnormal findings TICO NORIEGA [facility] Jul 12, 2023 06:16 PM SECONDARY Sensorineural hearing loss, bilateral TICO NORIEGA [facility] Plan of Treatment: Future Appointments (+ 6 months) and Future Tests (+/- 45 days) The Plan of Treatment section includes future care activities for the patient from all [place] treatmentfacilities. This section includes future appointments and future orders which are active, pending or scheduled. Future Appointments This section includes appointments that were scheduled to occur 6 months from the date of the Encounter, up to a maximum of 20 appointments. The data comes from all [place] treatment facilities. Appointment Date/Time Appointment Type Appointme nt Facility Name Aug 16, 2023 08:45 AM AMBULATORY - SURGERY [facility] Oct 20, 2023 10:30 AM AMBULATORY - SURGERY [facility] Encounter Notes: All associated encounter notes This section contains the clinical notes associated to the Encounter. Date/Time Encounter Note(s) Provider Source Jul 12, 2023 09:11 AM AUDIOLOGY NOTE: LOCAL TITLE: AUDIOLOGY CLINIC NOTE STANDARD TITLE: AUDIOLOGY NOTE DATE OF NOTE: JUL 12, 2023@09:11 ENTRY DATE: JUL 12, 2023@09:11:42 AUTHOR: TICO NORIEGA COSIGNER: URGENCY: STATUS: COMPLETED SUBJECT: HEARING EVALUATION AND HEARING AID SELECTION AUDIOLOGY CLINIC NOTE Has ADDENDA DIAGNOSIS: Encounter for examination of ears and hearing Sensorineural loss (40%) REASON FOR VISIT: HEARING EVALUATION AND HEARING AID SELECTION, 60 MINUTES: was seen in the clinic today for a comprehensive audiologic evaluation, hearing aid selection, and counseling utilizing a standard curriculum. LOCATION OF VISIT (ROOM NUMBER -[id number]): HISTORY: The comes today 30 minutes late into his appointment due to traffic issues. He has recently been service connected for his hearing impairment and the audiogram from this visit is placed into a [facility] Audiogram module. The reports it is not his hearing but his understanding. This leads us into conversation about his hearing loss being the cause of his decreased understanding The is Service Connected for Hearing Loss (40%). He reports he has had no trouble with his ears besides hearing, no pressure, fullness, pain or drainage. was unaccompanied into the appointment but his son drove him and stayed in the waiting room today. I asked about TV and he stated that his has her TV louder than his in the other room. I urged him to use the recently acquired [place] payment to have her tested and fit for hearing aids because the difference will be very hard to overcome if her hearing is poor and he tries to wear them. The said he had a pair of Zounds a couple (5) years ago that eventually quit working. PROCEDURES: OTOSCOPY: Bilaterally: Free of excessive cerumen. Normal anatomy. AUDIOMETRICS: Air/Bone conduction and speech testing were completed AU Transducer: Supra-aural headphones Reliability: Good RIGHT EAR (Hz) 250 129 050 9743 1500 2000 3000 4000 6000 8000 Air: See Audiogram Display under Tools>AUDIOLOGY>ROES or see HARI Database Bone: See Audiogram Display under Tools>AUDIOLOGY>ROES or see HARI Database LEFT EAR (Hz) 250 998 896 8809 1500 2000 3000 4000 6000 8000 Air: See Audiogram Display under Tools>AUDIOLOGY>ROES or see HARI Database Bone: See Audiogram Display under Tools>AUDIOLOGY>ROES or see HARI Database - All thresholds are in dB HL * = Masked Threshold WORD RECOGNITION: Recorded word list RIGHT EAR: 72% Level: 65/40* dB LEFT EAR: 84% Level: 85/40* dB SUMMARY: Hearing is mostly unchanged compared to the last examination, the February 2023 off site C&P. Masked bone thresholds indicate the asymmetry seen in February and today is sensorineural with no underlying conductive component. RIGHT EAR: Mild at 250 rising to normal hearing at 500 and 1000Hz before sloping to a mild to moderately severe hearing loss from 1500-8000Hz. Word Recognition Scores are moderately impaired. LEFT EAR: Mild to moderately severe sensorineural hearing loss 250-8000Hz. Word Recognition Scores are mildly impaired. AMPLIFICATION: - is a good candidate for hearing aid use. - was counseled on his type, degree and configuration of hearing loss using a standard curriculum. - The 's hearing loss has progressed currently to the extent that it affects full participation in the provision of health care as noted today in our discussions. Hearing aids are medically indicated to treat the 's auditory conditions. - Different styles/technologies were reviewed with consideration given to veterans listening situations and lifestyle needs. He is open to the [employer] style device, rechargeable technology and has a cellphone. - The has good vision, memory and dexterity for hearing aid use. - counseled using a standard curriculum on realistic expectations associated with adjusting to hearing aids, use of the devices, VA procedures and trial period. - Satsuma counseled using a standard curriculum on effective communication strategies particularly in the home with strategies such as each person calling the name before speaking or such as maintaining face to face contact when speaking, eliminating background noise when possible and talking at a close range. Also that his should consider strongly getting hearing aids to maintain balance in the home. - counseled using a standard curriculum on hearing protection in noise. - Hearing aids ordered: Phonak Touch of Classiceo L90-RL hearing aids (Silver, Size 2M receivers, C-shell earmolds) were selected and ordered today. PLAN: 1. will be scheduled for a 60-minute hearing aid fitting appointment. 2. The is in agreement with this plan. /es/ Ar BAEZ, [facility]-A CLINICAL/COCHLEAR IMPLANT DRILL SHARPENER OPERATOR Signed: 07/12/2023 18:16 09/07/2023 ADDENDUM STATUS: COMPLETED Contact made with Satsuma. We are moving the clinic to , agreed to move his appointment to the following day, same time. I will Have this scheduled. /es/ Ar Real Ph.D. Utilization Management Nurse Chief, Audiology Signed: 09/07/2023 09:33 TICO NORIEGA [facility]
--- OUTSIDE RECORDS SUMMARY | 2023-10-03 03:06 | XMS_ITS | Encounter Summary ---
Author Name [facility] of [facility] ([place]) Organization [facility] ([place]) Address [address] [place] [id number] Insurance Providers: All historical and current Section Date Range: From patient's date of to the date document was created. This section includes the names of all active insurance providers for the patient. Insurance Provider Type of Coverage Plan Name Start of Policy Coverage End of Policy Coverage Group Number Member ID Insurance Provider's Telephone Number Policy Barlow's Name Patient's Relationship to Policy Barlow BC[facility] (WNR) MEDICARE ADVANTAGE MCR (WNR) Feb 07, 2010 [id number] [phone] ZAN MILAN PATIENT Selected Encounter This section includes the information on record at [place] for the Encounter. Date/Time Encounter Type Encounter Description Reason Provider Source Aug 16, 2023 08:45 AM CONFORMITY EVALUATION AUDIOLOGY ICD-10-CM Z46.1 Encounter for fitting and adjustment of hearing aid ANGELIA HAIDER Brittani Encounter Template Text not used by [place] Assessments - Encounter Diagnoses This section includes the primary and secondary diagnoses documented for the Encounter. Date/Time Primary/Secondary Diagnosis Diagnosis Name Provider Source Aug 16, 2023 09:02 AM PRIMARY Encounter for fitting and adjustment of hearing aid PERRY HAIDER [facility] Aug 16, 2023 09:02 AM SECONDARY Sensorineural hearing loss, bilateral [facility]Y HAIDER [facility] Plan of Treatment: Future Appointments (+ 6 months) and Future Tests (+/- 45 days) The Plan of Treatment section includes future care activities for the patient from all [place] treatmentfacilities. This section includes future appointments and future orders which are active, pending or scheduled. Future Appointments This section includes appointments that were scheduled to occur 6 months from the date of the Encounter, up to a maximum of 20 appointments. The data comes from all [place] treatment facilities. Appointment Date/Time Appointment Type Appointme nt Facility Name Oct 20, 2023 10:30 AM AMBULATORY - SURGERY [facility] Encounter Notes: All associated encounter notes This section contains the clinical notes associated to the Encounter. Date/Time Encounter Note(s) Provider Source Aug 16, 2023 08:58 AM AUDIOLOGY NOTE: LOCAL TITLE: AUDIOLOGY CLINIC NOTE STANDARD TITLE: AUDIOLOGY NOTE DATE OF NOTE: AUG 16, 2023@08:58 ENTRY DATE: AUG 16, 2023@08:58:22 AUTHOR: JAQUI HAIDER EXP COSIGNER: URGENCY: STATUS: COMPLETED DIAGNOSIS: Encounter for Fitting and Adjustment of Hearing Aid Sensorineural loss, bilateral REASON FOR VISIT: Therapeutic - hearing aid fitting, conformity evaluation (real-ear measures), and orientation DURATION OF VISIT: 60 MINUTES LOCATION OF APPOINTMENT: 2S, [place] 108 OTOSCOPY: Bilaterally: Free of excessive cerumen. HISTORY: has never used hearing aids previously. NEW HEARING AIDS ISSUED TODAY: Make: Phonak ([employer] Embrace) Model: Audeo L90 Style: HALI-RL R Serial Numbers R/L: [id number]/ [id number] Sand Operator/Slim Tube Size: 2M Dome/Earmold: cshells Wax Guards: Cerustop ACTION: FITTING/VERIFICATION------ Hearing aids were a good physical fit. Feedback test was completed and feedback investment banking manager was activated. Hearing aids were programmed to prescriptive targets, which were derived from the Veterans hearing loss. Real-ear measures (conformity evaluation) were completed to verify aids were meeting targets (NAL-NL2). Gain and output of aids were adjusted to ensure audibility and comfort and verified with aided gain measures for soft, average, and loud speech inputs. Loudness intolerance was measured using a 90 dB MPO tone sweep and the patient was able to tolerate the output of the hearing device(s). USER SETTINGS---- Veterans subjective impressions were considered while adjusting the hearing aids. Balance, comfort, and localization were verified. Indicator tones were demonstrated for Trimble. ORIENTATION----- was counseled/oriented to the following: -Full-time hearing aid use and acclimating to amplification -Realistic expectations for hearing aid use -Appropriate communication strategies -How to charge the hearing aids -Location and operation of all controls -Proper care and maintenance -Protecting hearing in high noise levels -[facility] and Call Center contact information and services, including the trial period. Trimble reported good sound quality and equal balance between ears after adjustments were made. Trimble reported a comfortable fit in both ears. demonstrated understanding of the new aids and was able to insert the hearing aids appropriately, as well as manipulate the volume control and battery charging unit. Prognosis for success is good, given the Veterans response to the hearing aids. Hearing aids were issued and batteries and supplies were mailed. Trimble was provided with a copy of [place] issuance form [id number]. PLAN: - will be scheduled for a 2 month Follow up in [place]. Patient is in agreement with this plan. /bessie/ Ar Li Chief, Audiology Signed: 09/13/2023 13:56 JAQUI HAIDER [facility]
--- OUTSIDE RECORDS SUMMARY | 2023-10-03 03:07 | XMS_ITS | Referral Summary ---
Author Organization [facility] Address [address] [place] [address] Care Team Providers Care Inspector Filter Tip Name Role Phone Elsewhere, Pcp Primary Care Provider Unavailabl e Source Comments Patient records contain information from all sites at [facility]. For routine questions regarding patient records, call [phone] during business hours, M-F 8:00 AM - 5:00 PM Central Time. Record requests for emergency care only can be directed to [phone] at any time.[facility] Encounters Date Type Department Care Team Description 08/25/2023 7:59 AM CDT Anesthesia Event Department of Radiology in [address] [phone] Joan Howell APRN, METAL SPONGE MAKING MACHINE OPERATOR, JERONIMOP Mary Montano M.D. 08/25/2023 6:30 AM CDT - 08/25/2023 10:37 AM CDT Hospital Encounter Department of Radiology in [address] [phone] Xochitl Aguillon APRN, C.N.P., D.N.P. Jonathan Thrasher M.D. Rocio Mckinnon M.D. Discharge Disposition: Home or Self Care 08/17/2023 Clinical Communication Department of Radiology in [address] [phone] Shima Markham, R.N. 08/05/2023 Clinical Communication Department of Urology in [place], [place] [address] [place] [phone] Wade Amanda M.D. Phone call 07/29/2023 1:00 PM CDT Internal E-Consult Department of Vascular Medicine in [place], [place] [address] [place] [phone] María Thomas APRN C.N.P., M.S. Coronary Stent Status Post; Atrial Fibrillation Paroxysmal (HCC); Thrombosis Deep Vein Personal History 07/27/2023 Clinical Communication Department of Urology in [place], [place] [address] [place] [phone] Wade Amanda M.D. 07/25/2023 2:30 PM CDT Nurse Only Department of Urology in [place], [place] [address] [place] [phone] Xochitl Aguillon APRN, Josefina.N.PBony, D.N.P. Yamilex Rodriguez, RHermes. Urinary Retention 07/14/2023 Clinical Communication Department of Radiology in [place], [place] [address] [place] [phone] Kat Stewart R.N. Procedure 07/14/2023 3:30 PM CDT Virtual Visit Department of Urology in [place], [place] [address] [place] [phone] Wade Amanda M.D. 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 from Last 3 Months Allergies Active Allergy Reactions Criticality Noted Date Comments Codeine Headache Low 05/30/2002 Other reaction(s): mild Medications Medication Sig Dispensed Refills Start Date End Date Status acetaminophen (TYLENOL) 500 mg tablet Take 2 tablets by mouth every 8 (eight) hours as needed. pain. Max tylenol dose 3000mg in 24 hours 10/28/2016 Active calcium citrate-vitamin D3 (CITRACAL + D MAXIMUM) 315-250 mg-unit per tablet Take 1 tablet by mouth daily. bone health 10/26/2016 Active tamsulosin (FLOMAX) 0.4 mg 24 hr capsule Take 2 capsules by mouth daily. BPH 10/26/2016 Active metoprolol succinate (TOPROL-XL) 25 mg 24 hr tablet Take 1 tablet (25 mg total) by mouth daily. Do not crush or chew. PLUS a 50mg tablet daily 90 tablet 3 05/29/2019 Active triamterene-hydroCH LOROthiazide (DYAZIDE) 37.5-25 mg per capsule TK 1 C PO D 01/21/2019 Active nitroglycerin (NITROSTAT) 0.[address] 0.4 mg under the tongue every 5 (five) minutes as needed for chest pain. 07/23/2019 Active losartan (COZAAR) 50 mg tablet TAKE 1 TABLET(50 MG) BY MOUTH EVERY DAY 03/15/2022 Active vit A/vit C/vit E/zinc/copper (PRESERVISION AREDS ORAL) Take 1 capsule by mouth 2 (two) times a day. Active warfarin (COUMADIN) 2 mg tablet TAKE 2 TABLETS BY MOUTH EVERY DAY IN THE EVENING OR DIRECTED You may resume 24-48 hours after your urologic surgery if no significant blood in the urine. 09/24/2022 Active atorvastatin (LIPITOR) 40 mg tablet Take 1 tablet by mouth at bedtime. 08/27/2022 Active Active Problems Problem Noted Date Diagnosed Date Thrombosis Deep Vein Personal History 09/23/2022 Atrial Fibrillation Paroxysmal 09/10/2022 Overview (09/10/2022): by 48 hour holter 07/2020 Benign Prostatic Hyperplasia Without Lower Urinary Tract Symptom 09/10/2022 Overview (09/10/2022): Converted from NextGen Hyperlipidemia 09/10/2022 Hypertension Essential Primary 09/10/2022 Overview (09/10/2022): Converted from NextGen Unspecified Diastolic (Congestive) Heart Failure 09/10/2022 Hematuria Gross 09/10/2022 Mass Bladder 09/10/2022 Coronary Stent Status Post 03/06/2018 Atherosclerotic Heart Diseas e Of [place] Coronary Artery Without Angina Pectoris 02/24/2018 Overview (09/10/2022): Added automatically from request for surgery [id number] Loss Hearing Sensorineural Bilateral 09/11/2012 Restrictive Lung Disease 06/17/2010 Resolved Problems Problem Noted Date Diagnosed Date Resolved Date Dyspnea On Exertion 02/24/2018 09/11/19 23 Overview (02/24/2018): Added automatically from request for surgery [id number] Shortness Of Breath 12/27/2017 09/11/19 Immunizations Name Administration Dates Next Due H1N1 All Forms 02/06/2009 HZV (ZOSTAVAX) 02/11/2011 Influenza (IM) Preservative Free 10/13/2019 Influenza TIV (IM) 11/01/2013, 2,10/31/2008,2007,11/18/2006,11/22/2005,12/14/2004 Influenza, Quadrivalent, Adj uvanted, Preservative Free 10/26/2021,10/30/2020,10/13/2019 Influenza, Seasonal, Injectable 11/02/19 14,10/21/2011,11/27/2007,2005,12/14/2004 Influenza, Unspecified 11/07/2012,2011,10/31/2008,2006,11/22/2005 PCV13 07/03/2014 PPSV23 05/22/2008,12/02/1994 RZV (SHINGRIX) 11/06/2018,08/31/2018 SARS-COV-2 (COVID-19) - PFIZ ER (Discontinued)(12 years or older) 06/01/2021 Td Preservative Free (TENIVA C, DECAVAC) 05/13/2008 Tdap 06/13/2013 influenza high dose (65 year s or older) (PF) 11/06/2018,11/02/2017,11/15/2016,2015,11/26/2014 Social History Tobacco Use Types Packs/Day Years Used Date Smoking Tobacco: Former Cigarettes 1 25 0 02/08/1956 - 02/07/1981 Passive Smoke Exposure: Past Smokeless Tobacco: Never Chew Quit: 03/03/1981 Tobacco Cessation:Counseling Given: Not Answered Passive Exposure Comments:Not for Years Alcohol Use Standard Drinks/Week Comments Yes 7 (1 standard drink = 0.6 oz pur e alcohol) [facility] Utilities Answer Date Recorded In the past 12 months has th e electric, gas, oil, or water company threatened to shut off services in your home? No 06/22/2023 Humiliation, Afraid, Rape, and Kick questionnair e Answer Date Recorded Within the last year, have y ou been afraid of your partner or ex-partner? No 06/09/2022 Within the last year, have y ou been humiliated or emotionally abused in other ways by your partner or ex-partner? No Within the last year, have y ou been kicked, hit, slapped, or otherwise physically hurt by your partner or ex-partner? No 06/09/2022 Within the last year, have y ou been raped or forced to have any kind of sexual activity by your partner or ex-partner? No 06/09/2022 Social Connection and Isolat ion Panel [NHANES] Answer Date Recorded In a typical week, how many times do you talk on the phone with family, friends, or neighbors? Three times a week 06/09/2022 How often do you get togethe r with friends or relatives? Twice a week 06/09/2022 How often do you attend chur or jainism services? More than 4 times per year 06/09/2022 Do you belong to any clubs o r organizations such as advent groups, unions, fraternal or athletic groups, or school groups? No 06/09/2022 How often do you attend meet ings of the clubs or organizations you belong to? Never 06/09/2022 Are you , , di vorced, , never , or living with a partner? 06/09/2022 AUDIT-C Answer Date Recorded Q1: How often do you have a drink containing alc ohol? Patient declined 06/09/2022 Average Number of Drinks Not on file 023 Frequency of Binge Drinking Not on file 04/2022 Overall Financial Resource Strain (CARDIA) Answe r Date Recorded How hard is it for you to pa y for the very basics like food, housing, medical care, and heating? Patient declined 06/09/2022 PHQ-2 Answer Date Recorded PHQ-2 Score 0 09/21/2018 [facility] [employer]at [employer] - Occupational Stress Questionnaire Answer Date Recorded Do you feel stress - tense, restless, nervous, or anxious, or unable to sleep at night because your mind is troubled all the time - these days? Only a little 06/09/2022 Exercise Vital Sign Answer Date Recorde d On average, how many days pe r week do you engage in moderate to strenuous exercise (like a brisk walk)? 0 days 06/22/2023 On average, how many minutes do you engage in exercise at this level? 0 min 06/22/2023 Hunger Vital Sign Answer Date Recorded Within the past 12 months, y ou worried that your food would run out before you got the money to buy more. Never true 06/22/19 24 Within the past 12 months, t he food you bought just didn't last and you didn't have money to get more. Never true 06/22/2023 PRAPARE - Transportation Answer Date Re corded In the past 12 months, has l ack of transportation kept you from medical appointments or from getting medications? No 06/07 In the past 12 months, has l ack of transportation kept you from meetings, work, or from getting things needed for daily living? No 06/22/2023 Nutrition Answer Date Recorded On average, how many serving s of fruits and vegetables do you eat per day (serving size is equal to 1 cup or approximately the size of a tennis ball)? 0-2 06/22/2023 Dental Answer Date Recorded Dental: Regular Dentist Yes 06/10/19 23 Employment Answer Date Recorded Employment status Retired 06/22/2023 Housing Stability Answer Date Recorded What is your living situation today? I have a [place] place to live 06/22/2023 Education Answer Date Recorded What is the highest level of school you have completed or the highest degree you have received? 12th grade 06/09/2022 Sex and Gender Information Value Date Recorded Sex Assigned at Male 01/03/2018 1:26 PM MARKETING INSTRUCTOR Gender Identity Not on file Sexual Orientation Straight 01/03/2018 1: 26 PM MARKETING INSTRUCTOR Last Filed Vital Signs Vital Sign Reading Time Taken Comments Blood Pressure 132/68 08/25/2023 10:00 AM CDT Pulse 68 08/25/2023 10:15 AM CDT Temperature 36.4 ??C (97.5 ??F) 08/25/2023 8:58 AM CD T Respiratory Rate 16 08/25/2023 10:15 AM CDT Oxygen Saturation 97% 08/25/2023 10:15 AM CDT Inhaled Oxygen Concentration - - Weight 98.5 kg (217 lb 0.7 oz) 08/25/2023 7:39 A M CDT Height 180 cm (5' 10.87) 09/23/2022 1:59 PM CDT Body Mass Index 30.39 09/23/2022 1:59 PM CDT Plan of Treatment Upcoming Encounters Date Type Department Care Team (Late st Contact Info) Description 10/06/2023 1:00 PM CDT Procedure visit Department of Urology in [place], [place] [address] [place] [phone] Wade Amanda M.D. [address] [place] [phone] 10/06/2023 1:30 PM CDT Office Visit Department of Urology in [place], [place] [address] [place] [phone] Wade Amanda M.D. [address] [place] [phone] 10/13/2023 8:30 AM CDT Procedure visit Department of Dermatology in [place], [place] [address] [place] [phone] Antolin Ibrhaim M.D. [address] [place] [phone] Medical Devices Implanted Type Area Rehabilitation Program Coordinator Device Identifier Shelf Expiration Date Model / Serial / Lot Infuse Bmp Xxsmall - Rosado [id number] Implanted:Qty: 1 on 10/26/2016 Bone or Tissue Other/Legacy - See Implant Description Other/Legacy - See Implant Description Description:Device Manufactu rer - Sofamor Danek. Body Location - Other. arthrodesis. Device Status Text - [id number]. Stimublast Dbm Gel 5cc - Rosado [id number] Implanted:Qty: 1 on 10/26/2016 Bone or Tissue Other/Legacy - See Implant Description Arthrex Description:Device Manufactu rer - Arthrex. Body Location - Other. arthrodesis. Device Status Text - [id number]. Stnt Synergy Art Rx3.5x16 - [id number] Implanted:Qty: 1 on 03/06/2018 by Farheen Branch M.D. at [facility] Cardiac Stent N/A: Coronary Bizpora 12/07/2019 [id number] / / [id number] Description:pRCA Simmetry Screw 12.5mm X 80 - Rosado [id number] Implanted:Qty: 1 on 10/26/2016 Hardware e.g. pins/screws /rods Other/Legacy - See Implant Description Zyga Technology Description:Device Manufactu rer - [employer] Body Location - Other. Right. Device Status Text - [id number]. Simmetry Washer 12.5mm - Rosado [id number] Implanted:Qty: 1 on 10/26/2016 Hardware e.g. pins/screws /rods Other/Legacy - See Implant Description Zyga Technology Description:Device Manufactu rer - [employer]. Body Location - Other. Right. Device Status Text - [id number]. Conversions - Default Historical Implant Device Implanted:10/26 (Quantity not on file) Misc Other Abdomen Description:Body Location - Abdominal. Device Status Text - MiscOther. mesh from hernia repair. Ocular Lens Ocular Lens Bilateral: Eye Procedures Procedure Name Priority Date/Time Associated Diagnosis Comments IR SUPRAPUBIC CATHETER PLACEMENT RAD - Routine (most inpatients and all outpatients) 08/25/2023 8:43 AM CDT Enlarged Prostate With Lower Urinary Tract Symptoms LDA ANE NON-SURGICAL AIRWAY Routine 08/25/2023 8:08 AM CDT INR, POCT, B Routine 08/25/2023 7:32 AM CDT INR, POCT, B Routine 07/26/2023 11:21 AM CDT CREATININE WITH EGFR, S/P Routine 09/09/2022 7:17 AM CDT Hematuria Gross BASIC METABOLIC PANEL, S/P Routine 07/31/2019 2:08 PM CDT Shortness Of Breath from Last 3 Months or Most Recently Relevant to Health Maintenance Results * IR Suprapubic Catheter Placement (08/25/2023 8:43 AM CDT) Anatomical Region Laterality Modality Abdomen, Pelvis, Vascular In terventional RST LOS, Vascular Interventional ARZ LOS, Vascular Interventional FLA LOS N/A X-Ray Angiography Impressions 08/25/2023 1:35 PM CDT Placement of a 16-Setswana Elem tip suprapubic catheter. Recommend routine exchange in 3 months. EP Narrative 08/25/2023 1:35 PM CDT EXAM: ??IR SUPRAPUBIC CATHETER PLACEMENT CLINICAL HISTORY: ??88-year-old male with BPH and LUTS. Presents for suprapubic catheter placement. TECHNIQUE: ??The patient was positioned supine and the lower abdomen was prepped and draped in routine sterile fashion. Lidocaine was administered for local anesthesia. Under ultrasound guidance, a 18-gauge needle was advanced into the bladder. A permanent image was created and stored. Contrast was injected into the bladder through the needle which confirmed intravesical position and no evidence of bladder leak. A 0.035 Nitrex wire was advanced through the 18-gauge needle and curled within the urinary bladder. An 8 mm x 4 cm angioplasty balloon was used to dilate the tract. A 20-Setswana peel-away sheath was placed, and the 16-Setswana suprapubic catheter was inserted into the bladder. The suprapubic catheter balloon was inflated with 10 mL of saline/contrast mixture. The suprapubic catheter was injected with contrast and aspirated confirming good position and function. The catheter secured to skin with a 2-0 Prolene suture and connected to bag drainage. No immediate complication. PREPROCEDURE: ??Patient seen and evaluated. Allergies, pertinent medications, and history reviewed. Discussed risks, benefits, alternatives for procedure, and obtained informed consent. Patient understands information and questions answered. Immediately prior to starting the procedure, in the presence of the assisting personnel, procedural pause was conducted to verify correct patient identity and verification of procedure to be performed, and as applicable, correct side and site, correct patient position, availability of implants, special equipment or special requirements, and all image and specimen identification data. The roles and responsibilities of care team members, residents, and fellows were discussed. Sedation provided by Anesthesiology. Procedure Note Jonathan Thrasher M.D. - 08/25/2023 EXAM: IR SUPRAPUBIC CATHETER PLACEMENT CLINICAL HISTORY: 88-year-old male with BPH and LUTS. Presents forsuprapubic catheter placement. TECHNIQUE: The patient was positioned supine and the lower abdomen wasprepped and draped in routine sterile fashion. Lidocaine was administeredfor local anesthesia. Under ultrasound guidance, a 18-gauge needle wasadvanced into the bladder. A permanent image was created and stored. Contrast was injected into thebladder through the needle which confirmed intravesical position and noevidence of bladder leak. A 0.035 Nitrex wire was advanced through [id number] needle and curled within the urinary bladder. An 8 mm x 4 cm angioplasty balloon was used to dilate thetract. A 20-Setswana peel-away sheath was placed, and the 16-Frenchsuprapubic catheter was inserted into the bladder. The suprapubic catheterballoon was inflated with 10 mL of saline/contrast mixture. The suprapubic catheter was injected withcontrast and aspirated confirming good position and function. The cathetersecured to skin with a 2-0 Prolene suture and connected to bag drainage.No immediate complication. PREPROCEDURE: Patient seen and evaluated. Allergies, pertinentmedications, and history reviewed. Discussed risks, benefits, alternativesfor procedure, and obtained informed consent. Patient understandsinformation and questions answered. Immediately prior to starting the procedure, in the presence of the assistingpersonnel, procedural pause was conducted to verify correct patientidentity and verification of procedure to be performed, and as applicable,correct side and site, correct patient position, availability of implants, special equipment or specialrequirements, and all image and specimen identification data. The rolesand responsibilities of care team members, residents, and fellows werediscussed. Sedation provided by Anesthesiology. IMPRESSION: Placement of a 16-Setswana Elem tip suprapubic catheter. Recommendroutine exchange in 3 months. EP Xochitl Aguillon APRN, C.N.P., D.N.P. IMG IR PROCEDURES * LDA ANE NON-SURGICAL AIRWAY (08/25/2023 8:08 AM CDT) Narrative Joan Howell APRN, CRNA, DNAHiginio - 08/25/2023 8:08 AM CDT Joan Howell APRN, CRNA DNAHiginio ? 08/25/2023 ??8:17 AM Airway Date/Time: 08/25/2023 8:08 AM Performed by: Joan Howell APRN, CRNA DNAHiginio Authorized by: Joan Howell APRN, CRNA, DNAP ?? Patient location during procedure: OR / Procedure Area PROCEDURE DETAILS: Mask difficulty assessment: not attempted Final airway type: supraglottic airway Device size: 5 Number of attempt to successful placement: 1 Supraglottic device: LMA unique ?? Supraglottic device size: 5 ?? Airway confirmation: bilateral breath sounds, positive ETCO2 and bilateral chest rise Other previous techniques attempted: none PRE PROCEDURE DETAILS: Pre evaluation for airway management: procedure Urgency: elective Preop assessment of probable difficulty: no difficulty anticipated Preoxygenation: bag valve mask SEDATION / ANESTHESIA Anesthesia method: anesthesia POST PROCEDURE DETAILS: ? Procedure outcome: successful ?? Notable Events: no complications Joan Howell APRN, CT, DNAP ANESTHES [place] ORDERABLES * INR, POCT (08/25/2023 7:32 AM CDT) Only the most recent of2 resultswithin the time period is included. INR, POCT, B 1.2 08/25/2023 8:00 AM CDT PCED Comment: ----ADDITIONAL INFORMATION---- Standard intensity warfarin therapeutic range: 2.0 to 3.0 ?? High intensity warfarin therapeutic range: 2.5 to 3.5 Blood 08/25/2023 7:32 AM CDT 08/25/2023 8:00 AM CDT Unknown Provider LAB POCT ORDERABLES - DEVICE POC RST [facility] [address] [place] [address], [place] PCED [facility] POC [address] [place] [address] from Last 3 Months Advance Directives For more information, please contact: [phone] Documents on File Type Date Recorded Patient Baggage Handler Expl anation Advance Directives 07/25/2016 12:00 AM Leg acy document. See document viewer. * Full Code (Latest Code Status on File) Date Activated Date Inactivated Comments 03/06/2018 2:36 PM 03/06/2018 9:26 PM Question Answer Comments Full Code: Not Discussed Due to: Patient not available Care Teams Inspector Filter Tip Relationship Specialty Start Date End Date Elsewhere, Pcp PCP - General Family Medicine 06/08/22
--- OUTSIDE RECORDS SUMMARY | 2023-10-03 03:07 | XMS_ITS | Encounter Summary ---
Author Organization [facility] Address [address] [place] [phone] Care Team Providers Care Ocean Transportation Intermediary Name Role Phone Elsewhere, Pcp Primary Care Provider Unavailabl e Reason for Referral * Outpatient (Routine) - Closed Specialty Diagnoses / Procedures Referred By Alexander ridley Referred To Contact Urology Xochitl Aguillon APRN, C.N.PBony, D.N.P. [address] [place] [phone] [facility] Referral ID Status Reason Start Date Expiration Date Visits Re quested Visits Authorized [id number] Closed 07/14/2023 01/12/2025 1 1 * Outpatient (Routine) - Authorized Specialty Diagnoses / Procedures Referred By Alexander ridley Referred To Contact Urology Xochitl Aguillon APRN, C.N.PBony, D.N.P. [address] [place] [phone] Wade Amanda M.D. [address] [place] [phone] Referral ID Status Reason Start Date Expiration Date V isits Requested Visits Authorized [id number] Authorized 07/14/2023 01/12/2025 1 1 * Outpatient (Routine) - Closed Specialty Diagnoses / Procedures Referred By Alexander ridley Referred To Contact Radiology Diagnoses Enlarged Prostate With Lower Urinary Tract Symptoms Procedures IR Suprapubic Catheter Placement Xochitl Aguillon APRN, C.N.P., Kaycee.N.PBony [address] [place] [phone] [facility] Referral ID Status Reason Start Date Expiration Date Visits Re quested Visits Authorized [id number] Closed 07/14/2023 07/13/2024 1 1 Reason for Visit * Outpatient (Routine) - Closed Specialty Diagnoses / Procedures Referred By Alexander ridley Referred To Contact Urology Wade Amanda M.D. [address] [place] [phone] Wade Amanda M.D. [address] [place] [phone] Referral ID Status Reason Start Date Expiration Date Visits Re quested Visits Authorized [id number] Closed 07/12/2023 01/10/2025 1 1 Encounter Details Date Type Department Care Team (Late st Contact Info) Description 07/14/2023 3:30 PM CDT Virtual Visit Department of Urology in [place], [place] [address] [place] [phone] Wade Amanda M.D. 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 - 07/14/2023 3:30 PM CDT Images from the original note were not included. SUBJECTIVE REQUESTING PROVIDER Wade Amanda M.D. REASON FOR VISIT BPH, Urethral stricture follow-up Consult conducted via real-time audio/video technology by Xochitl Aguillon APRN, C.N.Gisela, [facility] to the patient in Patient's Home HISTORY OF PRESENT ILLNESS Mr. Reddy is an 88-year-old male who presents via telephone visit for further discussion regardingurinary symptoms and BPH. He has a history of prostate cancer and underwent brachytherapy in 1994. He was most recently seen by Dr. García's team for a suspicious papillary bladder mass. He reported worsening of his lower urinary tract symptoms, and has been referred for additional discussion of treatment options. He continues to struggle with his lower urinary tract symptoms which include weak stream, frequency, urgency, nocturia hourly. He does take tamsulosin 0.8 mg daily at bedtime, and deniesconcerns with side effects from the medication. Prostate size: Approximately 20 cc Medical Treatment / Prior Therapies: Tamsulosin 0.8 mg daily Prior Surgical Treatment: Prior radiation 1984. Comorbidities: Coronary artery disease, atrial fibrillation on long-term anticoagulation, hypertension, restrictive lung disease, heart failure, history of DVT Anticoagulation: Warfarin Lower Urinary Tract Symptoms: Weak stream, straining, incomplete emptying, nocturia 3 times nightly. He does experience urge incontinence daily. Testing: UROFLOW: Peak flow 6.4 mL/sec Average flow 2.7 mL/sec Total voided volume 116 mL Postvoid residual 0 mL Urodynamics: Not previously completed Cystoscopy: 04/19/2023 Bladder neck and prostatic urethra with friable tissue s/p history of radiation, adherent calcifications. 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 Reddy via phone visit for further discussion regarding LUTS, BPH and urethral stricture. We revisited the options for treatment including indwelling catheterization long-term, self dilation daily, or buccal graft urethroplasty. He states he would like a bag or u rostomy, we discussed this was not one of our recommendations. We further discussed the options and he elects to proceed with suprapubic catheter placement. Patient in agreement with this plan, all questions addressed. We will plan to follow-up one month after the SPT is placed. Signed by: Oleg Amanda M.D. 07/13/2023 4:30 PM CDT CC note : Wade Amanda M.D. documented in this encounter Plan of Treatment Upcoming Encounters Date Type Department Care Team (Late st Contact Info) Description 10/06/2023 1:00 PM CDT Procedure visit Department of Urology in [address] [phone] Wade Amanda M.D. [address] [place] [phone] 10/06/2023 1:30 PM CDT Office Visit Department of Urology in [place], [place] [address] [place] [phone] Wade Amanda M.D. [address] [place] [phone] 10/13/2023 8:30 AM CDT Procedure visit Department of Dermatology in [address] [phone] Antolin Ibrahim M.D. [address] [place] [phone] Scheduled Referrals Name Type Priority Associated Diagnoses Orde r Schedule Urology office visit (clinic) General Outpatient Referral Routine Expected: 09/25/2023, Expires: 10/13/2024 Urology nurse visit (clinic) Outpatient Referral Routine Expected: 07/14/2023, Expires: 10/13/2024 documented as of this encounter Results * IR Suprapubic Catheter Placement (08/25/2023 8:43 AM CDT) Anatomical Region Laterality Modality Abdomen, Pelvis, Vascular In terventional RST LOS, Vascular Interventional ARZ LOS, Vascular Interventional FLA LOS N/A X-Ray Angiography Impressions 08/25/2023 1:35 PM CDT Placement of a 16-Palestinian Cowlitz tip suprapubic catheter. Recommend routine exchange in [...] was used to dilate the tract. A 20-Palestinian peel-away sheath was placed, and the 16-Palestinian suprapubic catheter was inserted into the bladder. [...] A 0.035 Nitrex wire was advanced through [id number] needle and curled within the urinary bladder. An 8 mm x 4 cm angioplasty balloon was used to dilate thetract. A 20-Palestinian peel-away sheath was placed, and the 16-Frenchsuprapubic [...] provided by Anesthesiology. IMPRESSION: Placement of a 16-Palestinian Cowlitz tip suprapubic catheter. Recommendroutine exchange in 3 months. EP Xochitl Aguillon APRN, C.N.P., D.N.P. 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
--- OUTSIDE RECORDS SUMMARY | 2023-10-03 03:07 | XMS_ITS | Encounter Summary ---
Author Organization [facility] Address [address] [place] [phone] Care Team Providers Care Regulatory Auditor Name Role Phone Elsewhere, Pcp Primary Care Provider Unavailabl e Reason for Referral * Outpatient (Routine) - Closed Specialty Diagnoses / Procedures Referred By Alexander t Referred To Contact Vascular Medicine Diagnoses Coronary Stent Status Post Atrial Fibrillation Paroxysmal (HCC) Thrombosis Deep Vein Personal History Procedures Vascular Medicine - Thrombophilia periprocedural eConsult Wade Amanda M.D. [address] [place] [phone] [facility] Referral ID Status Reason Start Date Expiration Date Visits Re quested Visits Authorized [id number] Closed 07/27/2023 07/26/2024 1 1 Encounter Details Date Type Department Care Team (Late st Contact Info) Description 07/27/2023 Clinical Communication Department of Urology in [place], [place] [address] [place] [phone] Wade Amanda M.D. [address] [place] [phone] Social History Tobacco Use Types Packs/Day Years Used Date Smoking Tobacco: Former Cigarettes 1 25 0 02/08/1956 - 02/07/1981 Passive Smoke Exposure: Past Smokeless Tobacco: Never Chew Quit: 03/03/1981 Passive Exposure Comments:No t for Years Alcohol Use Standard Drinks/Week Comments Yes 7 (1 standard drink = 0.6 oz pur e alcohol) [facility] Utilities Answer Date Recorded In the past [...] often do you attend chur ch or gnosticist services? More than 4 times per year 06/09/2022 Do you belong to any clubs o r organizations such as caodaism groups, unions, fraternal or athletic groups, or [...] Answer Date Recorded PHQ-2 Score 0 09/21/2018 [facility] [place] - Occupational Stress [...] your living situation today? I have a [facility] place to live 06/22/2023 Education Answer Date Recorded What is the highest level of school you have completed or the highest degree you have received? 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 - 08/01/2023 10:29 AM CDT SUBJECTIVE CHIEF COMPLAINT / REASON FOR CALL Coumadin Information Discussed Spoke to patient. He is to take last dose of coumadin tomorrow and then hold until after the procedure. He was in agreement with plan. PLAN Disposition/Recommendation: Last dose coumadin 08/01 then hold until after procedure. Information/Education: patient/caller able to teach back Caller agreeable to plan of care: yes The following references were used: nursing clinical judgement and other Vascular e-consult. documented in this encounter Plan of Treatment Upcoming Encounters Date Type Department Care Team (Late st Contact Info) Description 10/06/2023 1:00 PM CDT Procedure visit Department of Urology in [place], [place] [address] [place] [phone] Wade Amanda M.D. [address] [place] [phone] 10/06/2023 1:30 PM CDT Office Visit Department of Urology in [place], [place] [address] [place] [phone] Wade Amanda M.D. [address] [place] [phone] 10/13/2023 8:30 AM CDT Procedure visit Department of Dermatology in [place], [place] [address] [place] [phone] Antolin Ibrahim M.D. [address] [place] [phone] documented as of this encounter Visit Diagnoses Diagnosis Coronary Stent Status Post- Primary Atrial Fibrillation Paroxysmal (HCC) Thrombosis Deep Vein Personal History documented in this encounter Care Teams Regulatory Auditor Relationship Specialty Start Date End Date Elsewhere, Pcp PCP - General Family Medicine 06/08/22 documented as of this encounter
--- OUTSIDE RECORDS SUMMARY | 2023-10-03 03:07 | XMS_ITS | Encounter Summary ---
Author Organization [facility] Address [address] [place] [phone] Care Team Providers Care Associate Professor Of History Name Role Phone Elsewhere, Pcp Primary Care Provider Unavailabl e Encounter Details Date Type Department Care Team (Late st Contact Info) Description 08/25/2023 7:59 AM CDT Anesthesia Event Department of Radiology in [place], [place] [address] [place] [phone] Joan Howell APRN, CRNA, DNAP [address] [place] [phone] Mary Montano M.D. [address] [place] [phone] Anesthesia Record Procedure Summary Procedure Name Responsible Anesthesiologist Anesthesia Start Time Anesthesia Stop Time IR SUPRAPUBIC CATHETER PLACEMENT Joan Howell APRN, CRNA, DNAP 08/25/23 0759 08/25/23 0859 Events Date Time Event Comment 08/25/2023 0759 An Start Machine/Equipme nt Checked Infection Precautions Followed Procedure/Site Verified NPO Status Verified Supine Standard ASA Monitors Applied 0805 An Induction 0808 An Intubation 0810 Turnover to Proceduralist 0822 Anesthesia Time Out 0823 Proc Start 0843 Proc Fin 0847 Turnover to ANE Staff 0852 Airway Removal Criteria Met 0852 Extubation/Airway Removed 0854 an stop data 0859 An End I completed my handoff to the receiving staff during which we 1. Identified the patient 2. Identified the responsible provider 3. Reviewed the pertinent medical history 4. Discussed the surgical course 5. Reviewed intra-op anesthesia management and issues during anesthesia 6. Set expectations for post-procedure period 7. Allowed opportunity for questions and acknowledgement of understanding. Meds Name Total fentanyl injection 50 mcg/mL 50 mcg lidocaine 2% (mg) injection 80 mg ePHEDrine PF 5 mg/mL syringe injection 1 0 mg ondansetron 4 mg/2 mL injection 4 mg propofol 10 mg/mL injection 160 mg Lactated Ringers Free Drip 200 mL * Agents No agents on file. * Blood No blood administrations on file. Lines, Drains, and Airways Type Details Placement Removal Suprapubic Catheter 08/25/23; 0834; Double-lumen; 16 Fr. 08/25/23 0834 by Lesly Pena RHermes. Peripheral IV Placement Date: 08/07 09/30; Placement Time: 07; Catheter Size: 20 G; Orientation: Anterior, Lower, Proximal, Right; Location: Forearm; Site Prep: Chlorhexidine (Preferred); Inserted by: heb; Insertion Attempts: 1; Removal Date: 08/25/23; Removal Time: 1027; Removal Reason: Patient discharged 08/25/23 0700 by Stacy Cohen E 08/25/23 1027 by Mirna Churchill M.S.NBony, R.N. Supraglottic Airway Placement Date: 08/07 09/30; Placement Time: 08 (created via procedure documentation); Mask Ventilation: Not attempted; Brand: Unique; Size: 5; Removal Date: 08/25/23; Removal Time: 0808/25/23 0808 by Joan Howell APRN, CRNA, DNAP 08/25/23 0852 by Joan Howell APRN, CRNA, DNAP documented in this encounter Social History Tobacco Use Types Packs/Day Years Used Date Smoking Tobacco: Former Cigarettes 1 25 0 02/08/1956 - 02/07/1981 Passive Smoke Exposure: Past Smokeless Tobacco: Never Chew Quit: 03/03/1981 Passive Exposure Comments:No t for Years Alcohol Use Standard Drinks/Week Comments Yes 7 (1 standard drink = 0.6 oz pur e alcohol) [facility] Utilities Answer Date Recorded In the past 12 months has [employer], gas, oil, or water [employer] threatened to shut off services in your [...] week 06/09/2022 How often do you attend [facility] or restoration services? More than 4 times per year 06/09/2022 Do you belong to any clubs o r organizations such as jewish groups, unions, fraternal or athletic groups, or [...] Answer Date Recorded PHQ-2 Score 0 09/21/2018 [facility]at ional Health - Occupational Stress [...] your living situation today? I have a [facility] place to live 06/22/2023 Education Answer Date Recorded What is the highest level of school you have completed or the highest degree you have received? 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 Gender Identity Not on file Sexual Orientation Straight 01/03/2018 1: 26 PM WATER ANALYST documented as of this encounter OR Notes * Anesthesia Postprocedure Evaluation - Joan Howell APRN, CT, DNAP - 08/25/2023 8:59 AM CDT Patient: Peña Watt Finger Procedure Summary Date: 08/25/23 Room / Location: Department of Radiology in [place], [place] Anesthesia Start: 758 Anesthesia Stop: 0859 Procedure: IR SUPRAPUBIC CATHETER PLACEMENT Diagnosis: Enlarged Prostate With Lower Urinary Tract Symptoms Enlarged Prostate With Lower Urinary Tract Symptoms (placement of SPT) Scheduled Providers: Jonathan Thrasher M.D.; Rocio Mckinnon M.D.; Joan Howell APRN, CRNA, DNAP Responsible Provider: Joan Howell APRN, CRNA, DNAP Anesthesia Type: general ASA Status: 3 Anesthesia Type: general Last vitals Vitals Value Taken Time BP 136/63 08/25/23 0858 Temp Pulse 74 08/25/23 0859 Resp 15 08/25/23 0859 SpO2 91 % 08/25/23 0859 Vitals shown include unfiled device data. Please reference Vitals flowsheet for most recent vital signs. Anesthesia Post Evaluation Patient Disposition: dismissal Cardiovascular status: hemodynamics (HR & BP) acceptable Respiratory status: patent airway with spontaneous effort Temperature: normothermic Oxygen requirements: room air Level of consciousness: sedated but awakens easily Pain score: pain adequately controlled and/or at baseline Post Op nausea/vomiting: none Hydration status: euvolemic * Anesthesia Procedure Notes - Joan Howell APRN, CRNA, DNAP - 08/25/2023 8:06 AM CDTAssociated Order(s): Airway Airway Date/Time: 08/25/2023 8:08 AM Performed by: Joan Howell APRN, CRNA, DNAP Authorized by: Joan Howell APRN, CRNA, DNAP Patient location during procedure: OR / Procedure Area PROCEDURE DETAILS: Mask difficulty assessment: not attempted Final airway type: supraglottic airway Device size: 5 Number of attempt to successful placement: 1 Supraglottic device: LMA unique Supraglottic device size: 5 Airway confirmation: bilateral breath sounds, positive ETCO2 and bilateral chest rise Other previous techniques attempted: none PRE PROCEDURE DETAILS: Pre evaluation for airway management: procedure Urgency: elective Preop assessment of probable difficulty: no difficulty anticipated Preoxygenation: bag valve mask SEDATION / ANESTHESIA Anesthesia method: anesthesia POST PROCEDURE DETAILS: Procedure outcome: successful Notable Events: no complications * Anesthesia Preprocedure Evaluation - Mary Montano M.D. - 08/25/2023 7:28 AM CDT Preprocedure Anesthesia & H&P Assessment Procedure Summary Date/Time: 08/25/23 0800 Scheduled providers: Jonathan Thrasher M.D.; Rocio Mckinnon M.D.; Joan Howell APRN, CRNA DNAP Procedure: IR SUPRAPUBIC CATHETER PLACEMENT Diagnosis: Enlarged Prostate With Lower Urinary Tract Symptoms [N40.1] Enlarged Prostate With Lower Urinary Tract Symptoms [N40.1] Indications: placement of SPT Location: Department of Radiology in [place], [place] Pertinent components of the patient's history including current problem list, medical history, surgical history, family history, social history, medications and allergies were reviewed. Present illness and pre-op diagnosis were confirmed. The planned surgery / procedure was verified with the patient / legal guardian. The patient's general health condition remains unchanged RELEVANT COMORBID CONDITIONS CV (+) Atherosclerotic Heart Disease Of [place] Coronary Artery Without Angina Pectoris (+) Atrial Fibrillation Paroxysmal (HCC) (+) Hypertension Essential Primary (+) Unspecified Diastolic (Congestive) Heart Failure (HCC) OBJECTIVE PHYSICAL EXAMINATION Airway (HEENT) Mallampati: II TM Distance: >3 FB Neck ROM: Full Mouth Opening: >3 cm Cardiovascular Rhythm: Irregular Rate: Normal Cardiovascular Assessment: cardiovascular normal Pulmonary Pulmonary Assessment: Clear General / Constitutional Constitutional Assessment: Normal General State of Health:: healthy appearing and calm Neurological Neurologic Assessment: alert and oriented x 3 Dental Dental Assessment: dentition in poor repair Abdomen Normal Musculoskeletal Normal Skin Normal ASSESSMENT / PLAN ANESTHESIA PLAN ASA: 3 Anesthesia Plan: general Patient seen and allergies reviewed, anesthesia plan and risks discussed directly with patient /legal guardian or through an geographic information scientist. The use of blood products not discussed Approval to Proceed: approved for anesthesia documented in this encounter Plan of Treatment Upcoming Encounters Date Type Department Care Team (Late st Contact Info) Description 10/06/2023 1:00 PM CDT Procedure visit Department of Urology in [place], [place] [address] [place] [phone] Wade Amanda M.D. [address] [place] [phone] 10/06/2023 1:30 PM CDT Office Visit Department of Urology in [place], [place] [address] [place] [phone] Wade Amanda M.D. [address] [place] [phone] 10/13/2023 8:30 AM CDT Procedure visit Department of Dermatology in [place], [place] [address] [place] [phone] Antolin Ibrahim M.D. [address] [place] [phone] documented as of this encounter Procedures Procedure Name Priority Date/Time Associated Diagnosis Comments LDA ANE NON-SURGICAL AIRWAY Routine 08/25/2023 8:08 AM CDT documented in this encounter Results * LDA ANE NON-SURGICAL AIRWAY (08/25/2023 8:08 AM CDT) Narrative Joan Howell APRN, CRNA, DNAP - 08/25/2023 8:08 AM CDT Joan Howell APRN, CRNA, DNAP ? 08/25/2023 ??8:17 AM Airway Date/Time: 08/25/2023 8:08 AM Performed by: Joan Howell APRN, CRNA, DNAP Authorized by: Joan Howell APRN, CRNA, DNAP [...] ?? Notable Events: no complications Joan Howell CASH APPLICATIONS SPECIALIST, TUBULAR RIVETER, DNAP ANESTHES IA ORDERABLES documented in this encounter Visit Diagnoses Not on filedocumented in this encounter Administered Medications Inactive Administered Medications - up to 3 most recent administrations Medication Order MAR Action Action Date Dose Rate Site ePHEDrine (PF) injection intravenous, As needed, Starting on Christelle 08/25/23 at 0824, Anesthesia Intra-op Given 08/25/2023 8:27 AM CDT 5 mg Given 08/25/2023 8:24 AM CDT 5 mg fentaNYL injection (Sublimaze) intravenous, As needed, Starting on Christelle 08/25/23 at 0824, Anesthesia Intra-op Given 08/25/2023 8:24 AM CDT 50 mcg Lactated Ringer's intravenous, Continuous Infusion: Per Instructions PRN, Starting on Christelle 08/25/23 at 0802, Anesthesia Intra-op New Bag 08/25/2023 8:02 AM CDT lidocaine (PF) (cardiac) injection intravenous, As needed, Starting on Christelle 08/25/23 at 0805, Anesthesia Intra-op Given 08/25/2023 8:05 AM CDT 80 mg ondansetron (PF) injection (Zofran) intravenous, As needed, Starting on Christelle 08/25/23 at 0816, Anesthesia Intra-op Given 08/25/2023 8:16 AM CDT 4 mg propofoL injection (Diprivan) intravenous, As needed, Starting on Christelle 24 at 0805, Anesthesia Intra-op Given 08/25/2023 8:05 AM CDT 160 mg documented in this encounter Care Teams Associate Professor Of History Relationship Specialty Start Date End Date Elsewhere, Pcp PCP - General Family Medicine 06/08/22 documented as of this encounter
--- OUTSIDE RECORDS SUMMARY | 2023-10-03 03:07 | XMS_ITS | Encounter Summary ---
Author Organization [facility] Address [address] [place] [address] Care Team Providers Care Geometry Professor Name Role Phone Elsewhere, Pcp Primary Care Provider Unavailabl e Reason for Visit * Reason Onset Date Comments Procedure 07/14/2023 Encounter Details Date Type Department Care Team (Late st Contact Info) Description 07/14/2023 Clinical Communication Department of Radiology in [place], [place] [address] [place] [phone] Kat Stewart, RBonyN. Procedure Social History Tobacco Use Types Packs/Day Years Used Date Smoking Tobacco: Former Cigarettes 1 25 0 02/08/1956 - 02/07/1981 Passive Smoke Exposure: Past Smokeless Tobacco: Never Chew Quit: 03/03/1981 Passive Exposure Comments:No t for Years Alcohol Use Standard Drinks/Week Comments Yes 7 (1 standard drink = 0.6 oz pur e alcohol) [facility] Utilities Answer Date Recorded In the past 12 months has [facility] [employer], gas, oil, or water [employer] threatened to shut off services in your [...] How often do you attend chur or moravian services? More than 4 times per year 06/09/2022 Do you belong to any clubs o r organizations such as anabaptism groups, unions, fraternal or athletic groups, or [...] Answer Date Recorded PHQ-2 Score 0 09/21/2018 [facility] Occupat ional Health - Occupational [...] your living situation today? I have a [facility] place to live 06/22/2023 Education Answer Date Recorded What is the highest level of school you have completed or the highest degree you have received? 12th grade 06/09/2022 Sex and Gender Information Value Date Recorded Sex Assigned at Male 01/03/2018 1:26 PM SHELTER SUPERVISOR Gender Identity Not on file Sexual Orientation Straight 01/03/2018 1: 26 PM SHELTER SUPERVISOR documented as of this encounter Miscellaneous Notes * Telephone Encounter - Kat Stewart R.N. - 07/27/2023 1:37 PM CDT Patient rescheduled for suprapubic catheter placement 08/07 at [facility] with Dr. Diaz. Urology contacted [facility] to help manage Coumadin prior to procedure. Urology will contact patient and let them know when to stop prior to procedure and of appointments. * Telephone Encounter - Kat Stewart R.N. - 07/14/2023 3:55 PM CDT I received a request from urology to schedule Mr. Reddy for Suprapubic catheter placement. I have Mr. Reddy scheduled to undergo Suprapubic catheter placement at [facility] with Dr. Diaz on 07/26/23. Patient is taking coumadin and ordering provider to provide patient with instructions on when to hold prior to procedure. Patient is not diabetic. MERCHANDISE SHOPPER needed for procedure. This procedure is scheduled as an outpatient procedure. Urology team to notify the patient of theseappointments. documented in this encounter Plan of Treatment Upcoming Encounters Date Type Department Care Team (Late st Contact Info) Description 10/06/2023 1:00 PM CDT Procedure visit Department of Urology in [place], [place] [address] [place] [phone] Wade Amanda M.D. [address] [place] [phone] 10/06/2023 1:30 PM CDT Office Visit Department of Urology in [place], [place] [address] [place] [phone] Wade Amanda M.D. [address] [place] [phone] 10/13/2023 8:30 AM CDT Procedure visit Department of Dermatology in [place], [place] [address] [place] [phone] Antolin Ibrahim M.D. [address] [place] [phone] documented as of this encounter Visit Diagnoses Not on filedocumented in this encounter Care Teams Geometry Professor Relationship Specialty Start Date End Date Elsewhere, Pcp PCP - General Family Medicine 06/08/22 documented as of this encounter
--- OUTSIDE RECORDS SUMMARY | 2023-10-03 03:07 | XMS_ITS | Encounter Summary ---
Author Organization [facility] Address [address] [place] [address] Care Team Providers Care Lease Broker Name Role Phone Elsewhere, Pcp Primary Care Provider Unavailabl e Reason for Visit * Reason Comments Urinary Retention * Outpatient (Routine) - Closed Specialty Diagnoses / Procedures Referred By Alexander t Referred To Contact Urology Xochitl Aguillon APRN, C.N.P., D.N.P. [address] [place] [phone] [facility] Referral ID Status Reason Start Date Expiration Date Visits Re quested Visits Authorized [id number] Closed 07/14/2023 01/12/2025 1 1 Encounter Details Date Type Department Care Team (Late st Contact Info) Description 07/25/2023 2:30 PM CDT Nurse Only Department of Urology in [place], [place] [address] [place] [phone] Xochitl Aguillon APRN, C.N.PBony, D.N.P. [address] [place] [phone] Yamilex Rodriguez R.N. [address] [place] [phone] Urinary Retention Social History Tobacco Use Types Packs/Day Years Used Date Smoking Tobacco: Former Cigarettes 1 25 0 02/08/1956 - 02/07/1981 Passive Smoke Exposure: Past Smokeless Tobacco: Never Chew Quit: 03/03/1981 Passive Exposure Comments:No t for Years Alcohol Use Standard Drinks/Week Comments Yes 7 (1 standard drink = 0.6 oz pur e alcohol) [facility] Utilities Answer Date Recorded In the past 12 months has e electric, gas, oil, or water company [...] often do you attend chur ch or yazidism services? More than 4 times per year 06/09/2022 Do you belong to any clubs o r organizations such as latter-day groups, unions, fraternal or athletic groups, or [...] Answer Date Recorded PHQ-2 Score 0 09/21/2018 [facility] Occupat ional [facility] - Occupational Stress Questionnaire Answer Date Recorded [...] Sex Assigned at Male 01/03/2018 1:26 PM CRYSTAL INSPECTOR Gender Identity Not on file Sexual Orientation Straight 01/03/2018 1: 26 PM CRYSTAL INSPECTOR documented as of this encounter Progress Notes * Yamilex Rodriguez RBonyN. - 07/25/2023 2:30 PM CDT Suprapubic tube placement/education. Patient is here to review suprapubic care and education today.He is having the tube placed tomorrow. Patient was showed how to do incision care day and was also showed how to use the leg and night bag. Patient was told he would have to have the catheter changedmonthly, and that the first catheter change will be done here, then if all goes well should be donelocally. Patient states he understands these instructions and will parisa with any questions. Supplieswere sent home with the patient. documented in this encounter Plan of Treatment Upcoming Encounters Date Type Department Care Team (Late st Contact Info) Description 10/06/2023 1:00 PM CDT Procedure visit Department of Urology in [place], [place] [address] [place] [phone] Wade Amanda M.D. [address] [place] [phone] 10/06/2023 1:30 PM CDT Office Visit Department of Urology in [place], [place] [address] [place] [phone] Wade Amanda M.D. [address] [place] [phone] 10/13/2023 8:30 AM CDT Procedure visit Department of Dermatology in [place], [place] [address] [place] [phone] Antolin Ibrahim M.D. [address] [place] [phone] documented as of this encounter Visit Diagnoses Diagnosis Symptom Urinary- Primary documented in this encounter Care Teams Lease Broker Relationship Specialty Start Date End Date Elsewhere, Pcp PCP - General Family Medicine 06/08/22 documented as of this encounter
--- OUTSIDE RECORDS SUMMARY | 2023-10-03 03:07 | XMS_ITS | Encounter Summary ---
Author Organization [facility] Address [address] [place] [phone] Care Team Providers Care Community Health Outreach Worker Name Role Phone Elsewhere, Pcp Primary Care Provider Unavailabl e Reason for Visit * Reason Onset Date Comments Phone call 08/05/2023 Encounter Details Date Type Department Care Team (Late st Contact Info) Description 08/05/2023 Clinical Communication Department of Urology in [place], [place] [address] [place] [phone] Wade Amanda M.D. [address] [place] [phone] Phone call Social History Tobacco Use Types Packs/Day Years Used Date Smoking Tobacco: Former Cigarettes 1 25 0 02/08/1956 - 02/07/1981 Passive Smoke Exposure: Past Smokeless Tobacco: Never Chew Quit: 03/03/1981 Passive Exposure Comments:No t for Years Alcohol Use Standard Drinks/Week Comments Yes 7 (1 standard drink = 0.6 oz pur e alcohol) [facility] Utilities Answer Date Recorded In the past 12 months has [facility] [employer], gas, oil, or water [employer] threatened to shut off services in your [...] often do you attend chur ch or mandaen services? More than 4 times per year 06/09/2022 Do you belong to any clubs o r organizations such as mandaeism groups, unions, fraternal or athletic groups, or [...] Answer Date Recorded PHQ-2 Score 0 09/21/2018 [facility] of Occupat ional Health - Occupational Stress [...] your living situation today? I have a [facility] place to live 06/22/2023 Education Answer Date Recorded What is the highest level of school you have completed or the highest degree you have received? 12th grade 06/09/2022 Sex and Gender Information Value Date Recorded Sex Assigned at Male 01/03/2018 1:26 PM SHARK BIOLOGIST Gender Identity Not on file Sexual Orientation Straight 01/03/2018 1: 26 PM SHARK BIOLOGIST documented as of this encounter Plan of Treatment Upcoming Encounters Date Type Department Care Team (Late st Contact Info) Description 10/06/2023 1:00 PM CDT Procedure visit Department of Urology in [place], [place] [address] [place] [phone] Wade Amanda M.D. [address] [place] [phone] 10/06/2023 1:30 PM CDT Office Visit Department of Urology in [place], [place] [address] [place] [phone] Wade Amanda M.D. [address] [place] [phone] 10/13/2023 8:30 AM CDT Procedure visit Department of Dermatology in [place], [place] [address] [place] [phone] Antolin Ibrahim M.D. [address] [place] [phone] documented as of this encounter Visit Diagnoses Not on filedocumented in this encounter Care Teams Community Health Outreach Worker Relationship Specialty Start Date End Date Elsewhere, Pcp PCP - General Family Medicine 06/08/22 documented as of this encounter
--- OUTSIDE RECORDS SUMMARY | 2023-10-03 03:07 | XMS_ITS ---
Author Organization [facility] Address [address] [place] [address] Care Team Providers Care Inhalation Therapy Teacher Name Role Phone Unavailable Unavailable Unavailable Surgery Details Not on file Complications Check Surgery Details section. Procedure Estimated Blood Loss Check Surgery Details section. Procedure Findings Check Surgery Details section. Procedure Specimens Taken Check Surgery Details section.
--- OUTSIDE RECORDS SUMMARY | 2023-10-03 03:07 | XMS_ITS | Clinical Summary ---
Author Organization [facility] Address [address] [place] [address] Care Team Providers Care Travel Accommodations Rater Name Role Phone Elsewhere, Pcp Primary Care Provider Unavailabl e Source Comments Patient records contain information from all sites at [facility]. For routine questions regarding patient records, call [phone] during business hours, M-F 8:00 AM - 5:00 PM Central Time. 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 08/25/2023 6:30 AM CDT - 08/25/2023 10:37 AM CDT Hospital Encounter Department of Radiology in [address] [phone] Xochitl Aguillon APRN, C.N.Higinio., D.N.P. Jonathan Thrasher M.D. Isaac, Onyedika P, M.D. Discharge Disposition: Home or Self Care 08/17/2023 Clinical Communication Department of Radiology in [address] [phone] Shima Markham, RPablo 08/05/2023 Clinical Communication Department of Urology in [address] [phone] Wade Amanda M.D. Phone call 07/29/2023 1:00 PM CDT Internal E-Consult Department of Vascular Medicine in [address] [phone] María Thomas APRN, C.N.P., M.S. Coronary Stent Status Post; Atrial Fibrillation Paroxysmal (HCC); Thrombosis Deep Vein Personal History 07/27/2023 Clinical Communication Department of Urology in [place], [place] [address] [place] [phone] Wade Amanda M.D. 07/25/2023 2:30 PM CDT Nurse Only Department of Urology in [place], [place] [address] [place] [phone] Xochitl Aguillon APRN, C.N.PBony, D.N.P. Yamilex Rodriguez, R.N. Urinary Retention 07/14/2023 3:30 PM CDT Virtual Visit Department of Urology in [place], [place] [address] [place] [phone] Wade Amanda M.D. 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 Procedure 07/11/2023 Clinical Communication Department of Urology in [place], [place] [address] [place] [phone] Wade Amanda M.D. from Last 3 Months Immunizations Name Administration Dates Next Due H1N1 [...] (65 year s or older) (PF) 11/06/2018,11/02/2017,11/15/2016,2015,11/26/2014 Family History Medical History Relation Name Comments Pulmonary fibrosis Neg Hx Social History Tobacco Use Types Packs/Day Years Used Date Smoking Tobacco: Former Cigarettes 1 25 0 02/08/1956 - 02/07/1981 Passive Smoke Exposure: Past Smokeless Tobacco: Never Chew Quit: 03/03/1981 Tobacco Cessation:Counseling Given: Not Answered Passive Exposure Comments:Not for Years Alcohol Use Standard Drinks/Week Comments Yes 7 (1 standard drink = 0.6 oz pur e alcohol) [facility] Utilities Answer Date Recorded In the past 12 months has e [employer], gas, oil, or water company threatened to [...] week 06/09/2022 How often do you attend [facility] or rastafari services? More than 4 times per year 06/09/2022 Do you belong to any clubs o r organizations such as tenriism groups, unions, fraternal or athletic groups, or [...] Answer Date Recorded PHQ-2 Score 0 09/21/2018 [facility] of Occupat ional Health - Occupational Stress [...] Sex Assigned at Male 01/03/2018 1:26 PM ENGINE TEST CELL TECHNICIAN Gender Identity Not on file Sexual Orientation Straight 01/03/2018 1: 26 PM ENGINE TEST CELL TECHNICIAN Last Filed Vital Signs Vital Sign Reading [...] CDT Procedure visit Department of Urology in [place], [place] [address] [place] [phone] Wade Amanda M.D. [address] [place] [phone] 10/06/2023 1:30 PM CDT Office Visit Department of Urology in [place], [place] [address] [place] [phone] Wade Amanda M.D. [address] [place] [phone] 10/13/2023 8:30 AM CDT Procedure visit Department of Dermatology in [place], [place] [address] [place] [phone] Antolin Ibrahim M.D. [address] [place] [phone] Health Maintenance Due Date Last Done Comments Depression Screening (Annual PHQ-2) 02/07/2023 COVID-19 Vaccine (2022- 4 season) 2023 12/07/2022, 08/27/2022, 10/26/2021, Additional history exists DTaP,Tdap,and Td Vaccines (2 - Td or Tdap) 06/14/2023 06/13/2013, 05/13/2008 Influenza Vaccine (#1) 2023 , 10/26/2021, 10/30/2020, Additional history exists Creatinine Level (Kidney Fun ction Test) 08/04/2024 08/05/2023, 02/10/2023, 09/09/2022, Additional history exists Potassium Level 08/04/2024 08/05/2023, 05/2023, 08/27/2022, Additional history exists Sodium Level 08/04/2024 08/05/2023, 05/2023, 08/27/2022, Additional history exists Zoster Vaccines Completed 11/06/2018, 08/08, 02/11/2011 Pneumococcal vaccine (65+ years) Completed 08/27/2022, 07/03/2014, 05/22/2008, Additional history exists Fall Risk Screen (Annual) Completed 08/25/2023 Medical Devices Implanted Type Area Paediatric Surgeon Device Identifier Shelf Expiration Date Model / Serial / Lot Infuse Bmp Xxsmall - [id number] [id number] Implanted:Qty: 1 on 10/26/2016 Bone or Tissue Other/Legacy - See Implant Description Other/Legacy - See Implant Description Description:Device Manufactu rer - No Chains. Body Location - Other. arthrodesis. Device Status Text - [id number]. Stimublast Dbm Gel 5cc - [id number] [id number] Implanted:Qty: 1 on 10/26/2016 Bone or Tissue Other/Legacy - See Implant Description Arthrex Description:Device Manufactu rer - Arthrex. Body Location - Other. arthrodesis. Device Status Text - [id number]. Stnt Synergy Art Rx3.5x16 - [id number] Implanted:Qty: 1 on 03/06/2018 by Farheen Branch M.D. at [facility] Cardiac Stent N/A: Coronary [employer] 12/07/2019 [id number] / / [id number] Description:pRCA Simmetry Screw 12.5mm X 80 - [id number] [id number] Implanted:Qty: 1 on 10/26/2016 Hardware e.g. pins/screws /rods Other/Legacy - See Implant Description Zyga Technology Description:Device Manufactu rer - [employer]. Body Location - Other. Right. Device Status Text - [id number]. Simmetry Washer 12.5mm - [id number] [id number] Implanted:Qty: 1 on 10/26/2016 Hardware e.g. pins/screws /rods Other/Legacy - See Implant Description Z[employer]ga Technology Description:Device Manufactu rer - [employer]. Body Location - Other. Right. Device Status Text - [id number]. Conversions - Default Historical Implant Device Implanted:10/26 [...] 08/25/2023 1:35 PM CDT Placement of a 16-Wallisian [place] tip suprapubic catheter. Recommend routine exchange in [...] was used to dilate the tract. A 20-Wallisian peel-away sheath was placed, and the 16-Wallisian suprapubic catheter was inserted into the bladder. [...] A 0.035 Nitrex wire was advanced through [id number] needle and curled within the urinary bladder. An 8 mm x 4 cm angioplasty balloon was used to dilate thetract. A 20-Wallisian peel-away sheath was placed, and the 16-Frenchsuprapubic [...] provided by Anesthesiology. IMPRESSION: Placement of a 16-Wallisian [place] tip suprapubic catheter. Recommendroutine exchange in 3 months. EP Xochitl Aguillon APRN, C.N.P., D.N.P. IMG IR PROCEDURES * LDA ANE NON-SURGICAL AIRWAY (08/25/2023 8:08 AM CDT) Narrative Joan Howell APRN, CT, DNAP - 08/25/2023 8:08 AM CDT Joan [...] Notable Events: no complications Joan Howell APRN, CRNA, DNAP ANESTHES [place] ORDERABLES * INR, POCT (08/25/2023 7:32 AM CDT) Only the most recent of2 resultswithin the time period is included. [facility] INR, POCT, B 1.2 08/25/2023 8:00 AM CDT PCED Comment: ----ADDITIONAL INFORMATION---- Standard intensity warfarin therapeutic range: 2.0 to 3.0 ?? High intensity warfarin therapeutic range: 2.5 to 3.5 Blood 08/25/2023 7:32 AM CDT 08/25/2023 8:00 AM CDT Unknown Provider LAB POCT ORDERABLES - DEVICE POC [facility] OUT[facility]IENT [facility] [address] [place] [address], [facility] [[email or web address]] PCED [facility] POC [address] [place] [address] from Last 3 Months Advance Directives For more information, please contact: [phone] Documents on File Type Date Recorded Patient Geospatial Analyst Expl anation Advance Directives 07/25/2016 12:00 AM Leg acy document. See document viewer. * Full Code (Latest Code Status on File) Date Activated Date Inactivated Comments 03/06/2018 2:36 PM 03/06/2018 9:26 PM Question Answer Comments Full Code: Not Discussed Due to: Patient not available Care Teams Travel Accommodations Rater Relationship Specialty Start Date End Date Elsewhere, Pcp PCP - General Family Medicine 06/08/22
--- OUTSIDE RECORDS SUMMARY | 2023-10-03 03:07 | XMS_ITS | Encounter Summary ---
Author Organization [facility] Address [address] [place] [id number] Care Team Providers Care Systems Mgr Name Role Phone Elsewhere, Pcp Primary Care Provider Unavailabl e Reason for Visit * Outpatient (Routine) - Closed Specialty Diagnoses / Procedures Referred By Alexander t Referred To Contact Radiology Diagnoses Enlarged Prostate With Lower Urinary Tract Symptoms Procedures IR Suprapubic Catheter Placement Xochitl Aguillon APRN, C.N.P., D.N.P. [address] [place] [phone] [facility] Referral ID Status Reason Start Date Expiration Date Visits Re quested Visits Authorized [id number] Closed 07/14/2023 07/13/2024 1 1 Encounter Details Date Type Department Care Team (Late st Contact Info) Description 08/25/2023 6:30 AM CDT - 08/25/2023 10:37 AM CDT Hospital Encounter Department of Radiology in [place], [place] [address] [place] [phone] Xochitl Aguillon APRN, C.N.P., D.N.P. [address] [place] [phone] Jonathan Thrasher M.D. [address] [place] [phone] Rocio Mckinnon M.D. [address] [place] [phone] Discharge Disposition: Home or Self Care Social History Tobacco Use Types Packs/Day Years Used Date Smoking Tobacco: Former Cigarettes 1 25 0 02/08/1956 - 02/07/1981 Passive Smoke Exposure: Past Smokeless Tobacco: Never Chew Quit: 03/03/1981 Passive Exposure Comments:No t for Years Alcohol Use Standard Drinks/Week Comments Yes 7 (1 standard drink = 0.6 oz pur e alcohol) [facility] Utilities Answer Date Recorded In the past 12 months has th e [employer], gas, oil, or water [employer] threatened to shut off services in your [...] often do you attend chur ch or tenriism services? More than 4 times per year 06/09/2022 Do you belong to any clubs o r organizations such as faith groups, unions, fraternal or athletic groups, or [...] Answer Date Recorded PHQ-2 Score 0 09/21/2018 [facility] - Occupational Stress Questionnaire Answer [...] Sex Assigned at Male 01/03/2018 1:26 PM DERMATOLOGIST AND DERMATOPATHOLOGIST Gender Identity Not on file Sexual Orientation Straight 01/03/2018 1: 26 PM DERMATOLOGIST AND DERMATOPATHOLOGIST documented as of this encounter Last Filed Vital Signs Vital Sign Reading [...] oz) 08/25/2023 7:39 A M CDT Height - - Body Mass Index 30.39 09/23/2022 1:59 PM CDT documented in this encounter Discharge Instructions * Discharge Instructions* Mirna Churchill M.S.N., R.N. - 08/25/2023 9:07 AM CDT Instructions After Sedation or Anesthesia After you have sedation or anesthesia, it is common to have lapses of memory, slowed reaction time and impaired judgment. Do not drive or operate motorized vehicles or equipment for the rest of the day. This is for your safety and the safety of others. Air travel by yourself on the day of your procedure is not advised. For the rest of the day: Rest. Do not return to work or school. Do not take on responsibility for children or anyone who depends on your care. Do not use exercise equipment or take part in rough play or sports. Do not drink alcoholic beverages. Sedation or anesthesia medication also may increase your risk of falling. Use caution and ask for help when you walk or move around. You may want to have someone help you for the rest of the day. You may resume your usual diet when you feel able to do so, unless you are told otherwise. Contact your health care provider if you have: The following side effects longer than 24 hours: Ongoing dizziness. Persistent nausea or repeated vomiting. Signs of infection, which may include: Temperature of 100.4 degrees Fahrenheit (38 degrees Celsius) or higher. Chills. An Increase in swelling, tenderness, or redness at the site. Increased pain or pain not helped by pain medication. A bad-smelling odor from the site New drainage or an increase in drainage coming from the site A change in skin color at the site. This change may be a shade of red, purple or brown, depending on your skin color. * Attachments The following attachments cannot be sent through Care Everywhere. * Long-Term Suprapubic Catheter Care (Sinhala) documented in this encounter Medications at Time of Discharge Medication Sig Dispensed Refills Start Date End Date acetaminophen (TYLENOL) 500 mg tablet Take 2 tablets by mouth every 8 (eight) hours as needed. pain. Max tylenol dose 3000mg in 24 hours 10/28/2016 atorvastatin (LIPITOR) 40 mg tablet Take 1 tablet by mouth at bedtime. 08/27/2022 calcium citrate-vitamin D3 (CITRACAL + D MAXIMUM) 315-250 mg-unit per tablet Take 1 tablet by mouth daily. bone health 10/26/2016 losartan (COZAAR) 50 mg tablet TAKE 1 TABLET(50 MG) BY MOUTH EVERY DAY 03/15/2022 metoprolol succinate (TOPROL-XL) 25 mg 24 hr tablet Take 1 tablet (25 mg total) by mouth daily. Do not crush or chew. PLUS a 50mg tablet daily 90 tablet 3 05/29/2019 nitroglycerin (NITROSTAT) 0.[address] 0.4 mg under the tongue every 5 (five) minutes as needed for chest pain. 07/23/2019 tamsulosin (FLOMAX) 0.4 mg 24 hr capsule Take 2 capsules by mouth daily. BPH 10/26/2016 triamterene-hydroCHLOR Othiazide (DYAZIDE) 37.5-25 mg per capsule TK 1 C PO D 01/21/2019 vit A/vit C/vit E/zinc/copper (PRESERVISION AREDS ORAL) Take 1 capsule by mouth 2 (two) times a day. warfarin (COUMADIN) 2 mg tablet TAKE 2 TABLETS BY MOUTH EVERY DAY IN THE EVENING OR DIRECTED You may resume 24-48 hours after your urologic surgery if no significant blood in the urine. 09/24/2022 documented as of this encounter Progress Notes * Joshua, Laura Peter APRN, C.N.P., D.N.P. - 08/25/2023 8:52 AM CDT VASCULAR INTERVENTIONAL RADIOLOGY POST-PROCEDURE RECOVERY NOTE PROCEDURE PERFORMED AND DESCRIPTION Suprapubic catheter placement HISTORY OF PRESENT ILLNESS Mr. Reddy is a 88 y.o. male with past medical history significant for benign prostatic hyperplasiain addition prostate cancer status post brachytherapy and urinary urge incontinence. He was presented with options when he met with urology and opted for suprapubic catheter placement and presented today for procedure. CURRENT MEDICATIONS No current facility-administered medications on file prior to encounter. Current Outpatient Medications on File Prior to Encounter Medication Sig Dispense Refill acetaminophen (TYLENOL) 500 mg tablet Take 2 tablets by mouth every 8 (eight) hours as needed. pain. Max tylenol dose 3000mg in 24 hours atorvastatin (LIPITOR) 40 mg tablet Take 1 tablet by mouth at bedtime. losartan (COZAAR) 50 mg tablet TAKE 1 TABLET(50 MG) BY MOUTH EVERY DAY metoprolol succinate (TOPROL-XL) 25 mg 24 hr tablet Take 1 tablet (25 mg total) by mouth daily. Do not crush or chew. PLUS a 50mg tablet daily 90 tablet 3 tamsulosin (FLOMAX) 0.4 mg 24 hr capsule Take 2 capsules by mouth daily. BPH triamterene-hydroCHLOROthiazide (DYAZIDE) 37.5-25 mg per capsule TK 1 C PO D calcium citrate-vitamin D3 (CITRACAL + D MAXIMUM) 315-250 mg-unit per tablet Take 1 tablet by mouthdaily. bone health nitroglycerin (NITROSTAT) 0.[address] 0.4 mg under the tongue every 5 (five) minutes as needed for chest pain. vit A/vit C/vit E/zinc/copper (PRESERVISION AREDS ORAL) Take 1 capsule by mouth 2 (two) times a day. warfarin (COUMADIN) 2 mg tablet TAKE 2 TABLETS BY MOUTH EVERY DAY IN THE EVENING OR DIRECTED You may resume 24-48 hours after your urologic surgery if no significant blood in the urine. VITAL SIGNS Vitals: 08/25/23 0739 BP: 129/70 Pulse: 66 Resp: 15 Temp: 36.4 ??C SpO2: 94% ALLERGIES Allergies Allergen Reactions Codeine Headache Other reaction(s): mild PHYSICAL EXAMINATION General: 88-year-old gentleman resting comfortably in bed Abdomen: Suprapubic catheter in place draining clear yellow urine. No sign of active bleeding or hematoma. Dressing clean, dry, and intact. ASSESSMENT/RECOVERY DISPOSITION #1 Status post suprapubic catheter placement Procedure went well with no immediate complications.Patient is seen in the recovery room. Appears hemodynamically stable and comfortable. PLAN -Postprocedural monitoring -Routine monitoring of puncture site for signs of bleeding or hematoma -Pain control -Discharge appropriate once bedrest complete and meeting all discharge criteria. -He may resume his warfarin tomorrow. -Continue following with Urology for cares/exchanges. Please page VIR NPPA at [phone] M-F 7AM-5PM or on-call resident at [phone] after 5PM and weekends. documented in this encounter Procedure Notes * Rocio Mckinnon M.D. - 08/25/2023 8:49 AM CDT PATIENT DISPOSITION Return to Outpatient Unit for recovery. Discharge patient when discharge criteria met. POST-PROCEDURE DIAGNOSIS Suprapubic catheter. PROCEDURE PERFORMED AND DESCRIPTION Suprapubic catheter placement. PROCEDURE DETAILS See Radiology Report SPECIMENS REMOVED None FINDINGS See dictation PRIMARY PROCEDURALIST Dr. Thrasher ASSISTANTS Dr. Mckinnon COMPLICATIONS None. DRAINS None. IMPLANTS None. ANESTHESIA General anesthesia. FLUIDS None. ESTIMATED BLOOD LOSS <5ml CURRENT MEDICATIONS No Medication Changes FOLLOW-UP LETTER None. MAY RETURN TO WORK Not applicable PATIENT INSTRUCTIONS No return appointment documented in this encounter Plan of Treatment Upcoming Encounters Date Type Department Care Team (Late st Contact Info) Description 10/06/2023 1:00 PM CDT Procedure visit Department of Urology in [place], [place] [address] [place] [phone] Wade Amanda M.D. 200 [place] [phone] 10/06/2023 1:30 PM CDT Office Visit Department of Urology in [place], [place] [address] [place] [phone] Wade Amanda M.D. [address] [place] [phone] 10/13/2023 8:30 AM CDT Procedure visit Department of Dermatology in [place], [place] [address] [place] [phone] Antolin Ibrahim M.D. [address] [place] [phone] documented as of this encounter Procedures Procedure Name Priority Date/Time Associated Diagnosis Comments IR SUPRAPUBIC CATHETER PLACEMENT RAD - Routine (most inpatients and all outpatients) 08/25/2023 8:43 AM CDT Enlarged Prostate With Lower Urinary Tract Symptoms INR, POCT, B Routine 08/25/2023 7:32 AM CDT documented in this encounter Results * INR, POCT (08/25/2023 7:32 AM CDT) INR, POCT, B 1.2 08/25/2023 8:00 AM CDT [facility] Comment: ----ADDITIONAL INFORMATION---- Standard intensity warfarin therapeutic range: 2.0 to 3.0 ?? High intensity warfarin therapeutic range: 2.5 to 3.5 Blood 08/25/2023 7:32 AM CDT 08/25/2023 8:00 AM CDT Unknown Provider LAB POCT ORDERABLES - DEVICE POC [facility] [address] [place] [address], [facility] POC 200 [place] [address] documented in this encounter Visit Diagnoses Not on filedocumented in this encounter Administered Medications Inactive Administered Medications - up to 3 most recent administrations Medication Order MAR Action Action Date Dose Rate Site acetaminophen tablet 1,000 mg (TylenoL) 1,000 mg, oral, Every 6 hours PRN, Pain, Starting on Christelle 08/25/23 at 0910, (not to exceed 4 grams in 24 hours) cefTRIAXone injection 2 g (Rocephin) 2 g, intravenous, Once, On Christelle 08/25/23 at 0745, For 1 dose, Preprocedure (RAD), If needed, reconstitute vial per package insert instructions. See IVAG for administration guidelines., Drug Monitoring Program: Pharmacist to adjust medication dosing based on indication and drug clearance factors., Indications: Prophylaxis, surgical Given 08/25/2023 7:45 AM CDT 2 g iohexoL 300 mg iodine/mL solution (Omnipaque) As needed, Starting on Christelle 08/25/23 at 0843, Intra-Op Given 08/25/2023 8:43 AM CDT 50 mL Lactated Ringer's bolus 500 mL 500 mL, intravenous, at 500 mL/hr, Administer over 1 Hours, Once, On Christelle 08/25/23 at 0745, For 1 dose, Preprocedure (RAD) New Bag 08/25/2023 7:22 AM CDT 500 mL 500 mL/hr lidocaine 10 mg/mL (1 %) injection (Xylocaine) As needed, Starting on Christelel 08/25/23 at 0843, Intra-Op Given 08/25/2023 8:43 AM CDT 3 mL ondansetron (PF) injection 4 mg (Zofran) 4 mg, intravenous, Every 6 hours PRN, vomiting, nausea, Starting on Christelle 08/25/23 at 0910, Reassess for nausea or vomiting after at least 10 minutes. If nausea or vomiting persists administer next ordered antiemetic medications (order for antiemetic medication administration ondansetron then prochlorperazine). documented in this encounter Active and Recently Administered Medications Times are shown in CDT. Scheduled Medication Order 08/23/2023 08/24/2023 08/25/2023 cefTRIAXone injection 2 g (Rocephin) (COMPLETED) 2 g, intravenous, Once, On Christelle 08/25/23 at 0745, For 1 dose, Preprocedure (RAD), If needed, reconstitute vial per package insert instructions. See IVAG for administration guidelines., Drug Monitoring Program: Pharmacist to adjust medication dosing based on indication and drug clearance factors., Indications: Prophylaxis, surgical 0745 (Given - Provid er: Roland López R.N.) Lactated Ringer's bolus 500 mL (COMPLETED) 500 mL, intravenous, at 500 mL/hr, Administer over 1 Hours, Once, On Christelle 08/25/23 at 0745, For 1 dose, Preprocedure (RAD) 0722 (New Bag - Prov ider: Roland López R.N.) PRN Medication Order 08/23/2023 08/24/2023 08/25/2023 acetaminophen tablet 1,000 mg (TylenoL) 1,000 mg, oral, Every 6 hours PRN, Pain, Starting on Christelle 08/25/23 at 0910, (not to exceed 4 grams in 24 hours) fentaNYL injection 25 mcg (Sublimaze) 25 mcg, intravenous, Every 2 min PRN, moderate pain or score 4-6 of 10, severe pain or score 7-10 of 10, Starting on Christelle 08/25/23 at 0909, PACU (only), Up to maximum total dose of 200 mcg iohexoL 300 mg iodine/mL solution (Omnipaque) (COMPLETED) As needed, Starting on Christelle 08/25/23 at 0843, Intra-Op 0843 (Given - Provid er: Jonathan Thrasher M.D.) lidocaine 10 mg/mL (1 %) injection (Xylocaine) (COMPLETED) As needed, Starting on Christelle 08/25/23 at 0843, Intra-Op 0843 (Given - Provid er: Jonathan Thrasher M.D.) ondansetron (PF) injection 4 mg (Zofran) 4 mg, intravenous, Every 6 hours PRN, nausea, vomiting, (If patient has not received in the previous 6 hours), Starting on Christelle 08/25/23 at 0909, PACU (only), Administer first. If nausea and vomiting persists, proceed with haloperidol. (order of antiemetic administration - ondansetron then haloperidol then granisetron) ondansetron (PF) injection 4 mg (Zofran) 4 mg, intravenous, Every 6 hours PRN, vomiting, nausea, Starting on Christelle 08/25/23 at 0910, Reassess for nausea or vomiting after at least 10 minutes. If nausea or vomiting persists administer next ordered antiemetic medications (order for antiemetic medication administration ondansetron then prochlorperazine). documented in this encounter Care Teams Systems Mgr Relationship Specialty Start Date End Date Elsewhere, Pcp PCP - General Family Medicine 06/08/22 documented as of this encounter
--- OUTSIDE RECORDS SUMMARY | 2023-10-03 03:07 | XMS_ITS | Clinical Summary ---
Author Organization [facility] Address [place], [place] [address] Care Team Providers Care Obiee Obia Solution Architect Name Role Phone Vira Polanco AuD Unavailable [phone] Lee Broderick MD Primary Care Provider Allergies Active Allergy Reactions Criticality Noted Date Comments Codeine Headache Low 04/28/2020 Other reaction(s): mild Medications Medication Sig Dispensed Refills Start Date End Date Status Walker with Wheels For home use. 1 Device 0 06/15/2012 Active nitroglycerin (NITROSTAT) 0.4 mg sublingual tabletIndications: PATEL (dyspnea on exertion) Place 1 Tablet (0.4 mg) under the tongue every 5 minutes if needed for Chest Pain. 30 Tablet 2 08/02/2023 Active atorvastatin (LIPITOR) 40 mg tabletIndications: Hyperlipidemia with target LDL less than 100 Take 1 Tablet (40 mg) by mouth at bedtime. 90 Tablet 3 09/02/2023 Active losartan (COZAAR) 50 mg tabletIndications: Essential hypertension Take 1 Tablet (50 mg) by mouth once daily. 90 Tablet 3 09/02/2023 Active metoprolol succinate (Toprol XL) 25 mg Sustained-Release tabletIndications: Essential hypertension Take 1 Tablet (25 mg) by mouth once daily. 90 Tablet 3 09/02/2023 Active triamterene-hydroc hlorothiazide, 37.5-25 mg, (DYAZIDE) 37.5-25 mg capsuleIndications :Essential hypertension Take 1 Capsule by mouth once daily in the morning. 90 Capsule 3 09/02/2023 Active warfarin (COUMADIN) 2 mg tabletIndications: Paroxysmal A-fib (HC),Anticoagulati on monitoring, INR range 2-3 Take by mouth 4 mg (2 mg x 2) every day 182 Tablet 09/12/2023 Active warfarin (COUMADIN) 2 mg tabletIndications: Paroxysmal A-fib (HC),Anticoagulati on monitoring, INR range 2-3 Take by mouth 4 mg (2 mg x 2) every day in the evening OR as directed 09/02/2023 09/12/2023 Discontinue d(Reorder (E-cancel not sent)) Active Problems Problem Noted Date Diagnosed Date Suprapubic catheter placed 08/25/23 [place] 09/02/19 24 Prostate cancer 02/21/2023 Asbestosis 07/22/2021 Chronic obstructive pulmonary disease 06/09/2021 Restrictive lung disease 06/09/2021 CAD in upper [place] artery: JANEY to RCA 2019. Anticoagulation monitoring, INR range 2-3 2020 Right SI joint fusion 02/04/2017 Primary osteoarthritis of right hip 10/31/2015 L3-4 disk herniation 05/18/2013 Sensorineural hearing loss, asymmetrical 013 Hip pain with paralabral cyst 07/12/2012 Lower urinary tract symptoms (LUTS) 06/14/2012 Personal history of malignant neoplasm of prosta te 07/14/2006 Overview: S/p radioactive seed implants ~ 6 yrs ago Personal history of peptic ulcer disease 007 Unspecified Essential Hypertension Hyperlipidemia LDL goal < 100 Heart failure with preserved ejection fraction Insomnia Paroxysmal A-fib Overview: by 48 hour holter 07/2020 Resolved Problems Problem Noted Date Diagnosed Date Resolved Date Lumbar radicular pain 11/07/20142020 DDD (degenerative disc disease), lumbar 06/14/2012 07/29/2020 Inguinal hernia without ment ion of obstruction or gangrene, unilateral or unspecified, (not specified as recurrent) 10/20/2007 05/22/2008 Bacteremia 10/20/2007 05/22/2008 Overview: 1 bottle pos for MSSA Bilat SPONTANEOUS PNEUMOTHORAX OTHER 07/14/2006 08/27/2022 Overview: Hx of bilat pleurodesis Blood in stool 07/14/2006 10/20/2007 Diverticulitis of colon (wit hout mention of hemorrhage) 07/14/2006 05/22/2008 Overview: Hx of in the past x 1 per patient. Now with recurrence - transferred from [place] due to failure to resolve Diverticulosis of colon (dani costa mention of hemorrhage) 05/29/2006 07/29/2020 HX OF DVT 05/29/2006 07/29/2020 Overview: 10 yrs ago, s/p leg injury Emphysematous bleb 9 Dyspepsia and other specifie d disorders of function of stomach 07/29/2020 Nocturia 07/29/2020 Encounters Date Type Department Care Team Description 09/21/2023 4:00 PM CDT Office Visit [address] [address] Hitesh Akbar MD Musculoskeletal Problem (Follow up back pain) 09/21/2023 Travel 09/15/[address] [address] Hitesh Akbar MD Questions (/) 09/14/2023 Anticoagulation (warfarin) [address] [address] 1, [facility] Anticoagulation 09/13/2023 2:30 PM CDT Orders Only [address] [address] Lab, [facility] 09/13/2023 Travel 09/12/[address] [address] 1, [facility] Anticoagulation (Refill warfarin) 09/02/2023 2:00 PM CDT Office Visit [facility] [address] [place] [address] Gian Rodas MD [facility], [place] Follow Up (Arteriosclerotic heart disease) 09/02/2023 8:25 AM CDT Office Visit [facility] [address] [place] [address] Lee Broderick MD Medicare ANNUAL (subsequent) Visit (88 year old) 09/02/2023 Anticoagulation (warfarin) [facility] [address] [place] [address] 1, [facility] Anticoagulation 09/02/2023 Travel 09/01/2023 Telephone [facility] [address] [place] [address] Hitesh Akbar MD Results (MRI) 08/29/2023 Orders Only [facility] [address] [place] [address] Hitesh Akbar MD 1 scan: (1-Ord) [place], LUMBAR SPINE WO CON, 08/24/2023 08/24/2023 Orders Only [facility] Scanner 1 scan: (1-Ord) [facility], MR LUMBAR SPINE WO, 08/24/2023 08/22/2023 Anticoagulation (warfarin) [facility] [address] [place] [address] 1, [facility] Anticoagulation (Chart Update) 08/18/2023 8:45 AM CDT Orders Only [facility] [address] [place] [address] Lab, [facility] 08/18/2023 Anticoagulation (warfarin) [facility] [address] [place] [address] 1, [facility] Anticoagulation 08/18/2023 Telephone [facility] [address] [facility] [place] [place] [address] Hitesh Akbar MD imaging order needed 08/18/2023 Telephone [facility] [address] [place] [address] Hitesh Akbar MD 08/18/2023 Travel 08/12/2023 10:55 AM CDT Office Visit [facility] [address] [place] [address] Lee Broderick MD Follow Up (Diverticulitis - still having right side abdomen and pain back) 08/12/2023 Anticoagulation (warfarin) [facility] [address] [place] [address] 1, [facility] Anticoagulation 08/12/[address] [address] Lee Broderick MD Anticoagulation 08/12/2023 Travel 08/12/2023 Nurse Triage [address] [address] Lee Broderick MD Hearing Loss (cleaned out ears and couldn't hear) 08/05/2023 10:30 AM CDT Ancillary Procedure [address] [address] 08/05/2023 9:05 AM CDT Office Visit [address] [address] Camila Hernandes MD Abdominal Pain (right side abdominal pain in front and back for 2-3 weeks, getting worse/) 08/05/2023 Anticoagulation (warfarin) [address] [address] Lee Broderick MD Error-please disregard (opened in error) 08/05/2023 Anticoagulation (warfarin) [address] [address] 1, [facility] Anticoagulation (Chart Update) 08/05/[address] [address] Lee Broderick MD Anticoagulation (BPA- Metronidazole) 08/05/2023 Travel 08/05/[address] [address] Jessica Day RN Abdominal Pain 08/05/[address] [place] [address] Lee Broderick MD Error-please disregard 08/01/2023 Refill [facility] [address] [place] [address] Meghann Gonzalez MD Refill Request (Nitrostat) 07/27/2023 Anticoagulation (warfarin) [facility] [address] [place] [address] 1, [facility]ticoagulation (Chart Update) 07/27/2023 Telephone [facility] [address] [place] [address] Lee Broderick MD Anticoagulation (Surgery scheduled for 08/08/2023) 07/17/2023 Refill [facility] [address] [place] [address] Lee Broderick MD Refill Request (Warfarin) from Last 3 Months Immunizations Name Administration Dates Next Due COVID-19 Vaccine Spikevax (M oderna 50mcg/0.5mL) 12YO+ [id number] Formula PF 12/07/2022 COVID-19 vaccine (Pfizer-Bio NTech 30mcg/0.3mL) 12YO+ BIVALENT PF, MDV 08/27/2022,10/26/2021 COVID-19 vaccine (Pfizer-Bio NTech 30mcg/0.3mL) 12YO+ MARIYA-SUCROSE PF, MDV 06/01/2021 COVID-19 vaccine (Pfizer-Bio NTech 30mcg/0.3mL) PF, MDV 11/07/2020,04/05/2020,03/15/2020 Influenza A (H1N1), Inactivated 02/06/2009 Influenza Virus, Unspecified 11/07/2012, 10/21/2011,10/31/2008,2006,11/22/2005 Influenza, High-dose Inactivated 019,11/02/2017,11/15/2016,2015,11/26/2014 Influenza, IIV3 (Age 6-35 mos) 10/13/2019 Influenza, IIV3 (Age >=3 years) 11/02/19 14,10/21/2011,10/31/2008,2007,11/18/2006,11/22/2005,12/14/2004 Influenza, Inactivated AIIV4 (Age 65+ Years) Preserv Free 11/04/2022,10/26/2021,10/30/2020 Pneumococcal Conj 20-valent (Prevnar 20) 08/27/2022 Pneumococcal Poly,23-Valent (Pneumovax) 05/22/2008,12/02/1994 Pneumococcal conj 13-Valent (Prevnar 13) 07/03/2014 Td (Age >=7 Years) 01/28/1995 Td, Preservative Free (age > = 7 Years) 05/13/2008 Tdap 06/13/2013 Zoster (Shingrix-RZV, recombinant) 11/06/2018, Zoster (Zostavax-ZVL, live) 02/11/2011 Family History Medical History Relation Name Comments Cancer-prostate Brother 2 Stroke Brother 3 TIAs Cancer-prostate Father Stroke Father Stroke Mother Relation Name Status Comments Brother 1 Alive Brother 2 Brother 3 Daughter Alive Father (Age 93) Mother (Age 85) Sister Alive Son 1 (Age 18) MVA Son 2 Alive Son 3 Alive Son 4 Alive Son 5 Alive Social History Tobacco Use Types Packs/Day Years Used Date Smoking Tobacco: Former Cigarettes 1 30 0 [birth year]07[birth year]1951 - 02/07/1981 Smokeless Tobacco: Never Tobacco Cessation:Counseling Given: Yes Alcohol Use Standard Drinks/Week Comments Yes 0 (1 standard drink = 0.6 oz pur e alcohol) one beer per day PHQ-2 Answer Date Recorded PHQ-2 TOTAL SCORE 0 09/02/2023 Social Connections Answer Date Recorded Frequency of Communication with Friends and Fami ly 0 08/05/2023 Financial Resource Strain Answer Date R ecorded Difficulty of Paying Living Expenses 3 08/05/2023 Difficulty of Paying Living Expenses Not on file 08/05/2023 Food Insecurity Answer Date Recorded Worried About Running Out of Food in the Last Ye ar 1 08/05/2023 Transportation Needs Answer Date Record ed Lack of Transportation (Medical) 1 08/05/2023 Housing Stability Answer Date Recorded Unable to Pay for Housing in the Last Year 1 08/05/2023 Sex and Gender Information Value Date Recorded Sex Assigned at Not on file Gender Identity Not on file Sexual Orientation Not on file Obstetrics History Last Filed Vital Signs Vital Sign Reading Time Taken Comments Blood Pressure 122/71 09/21/2023 3:53 PM CDT Pulse 86 09/21/2023 3:53 PM CDT Temperature 36.7 ??C (98 ??F) 09/21/2023 3:53 PM CDT Respiratory Rate 16 02/10/2023 6:16 PM [employer] Oxygen Saturation 94% 09/21/2023 3:53 PM CDT Inhaled Oxygen Concentration - - Weight 97.3 kg (214 lb 9.6 oz) 09/21/2023 3:53 P M CDT shoes on Height 176.5 cm (5' 9.49) 09/02/2023 8:17 AM CD T Body Mass Index 31.25 09/02/2023 8:17 AM CDT Plan of Treatment Upcoming Encounters Date Type Department Care Team (Late st Contact Info) Description 10/27/2023 1:20 PM CDT Office Visit [facility] [address] [place] [address] Hitesh Akbar MD [address] [place] [address] Health Maintenance Due Date Last Done Comments COVID-19 vaccine series ( season) 2023 12/07/2022, 08/27/2022, 10/26/2021, Additional history exists Tetanus booster 06/14/2023 06/13/2013, 04/0 07/2008, 01/28/1995 Influenza for age 65+ 10/09/2023 11/04/2022 , 10/26/2021, 10/30/2020, Additional history exists BMI (ht and wt on same day) for age 18+ 09/01/2024 09/02/2023, 03/14/2023, 08/27/2022, Additional history exists Depression screening for age 12+ 09/01/2024 09/02/2023, 09/02/2023, 09/02/2023, Additional history exists Medicare Wellness for age 65+ 09/02/2024, 08/27/2022, 07/29/2020 Tdap Completed 06/13/2013 Zoster (shingles) series for age 50+ Completed 11/06/2018, 08/31/2018, 02/11/2011 Pneumococcal series for age 65+ Completed 08/27/2022, 07/03/2014, 05/22/2008, Additional history exists Medical Devices Implanted Type Area Neurosurgical Nurse Device Identifier Shelf Expiration Date Model / Serial / Lot Mesh Prolene Hernia Extended System - [id number] Implanted:Qty: 1 on 10/21/2007 at [facility] General Surgery Implants Right: Abdomen [employer] [facility]SUTURE) [facility] / [id number] Procedures Procedure Name Priority Date/Time Associated Diagnosis Comments PROTIME-INR STAT 09/13/2023 2:20 PM CDT Paroxysmal A-fib (HC) Anticoagulation monitoring, INR range 2-3 PROTIME-INR STAT 09/02/2023 9:05 AM CDT Paroxysmal A-fib (HC) Anticoagulation monitoring, INR range 2-3 PSA TOTAL (DIAGNOSTIC) Routine 9:05 AM CDT Prostate cancer (HC) LIPID PANEL W REFLEX MEASURED LDL Routine 09/02/2023 9:05 AM CDT Hyperlipidemia with target LDL less than 100 SCAN-MRI INTERPRETATION 08/24/19 12:00 AM CDT MR SPINE LUMBAR WO Routine 08/24/2023 12 :00 AM CDT Lumbar facet arthropathy Lumbar radiculopathy DDD (degenerative disc disease), lumbar Lumbar foraminal stenosis INR,POCT Routine 08/18/2023 8:46 AM CDT Paroxysmal A-fib (HC) Anticoagulation monitoring, INR range 2-3 URINE CULTURE Routine 08/12/2023 11:28 AM CDT Right flank pain UA W/ SEDIMENT EXAM REFLEXED PER CRITERIA Routine 08/12/2023 11:28 AM CDT Right flank pain CBC WITH AUTO DIFFERENTIAL Routine 08/12/2023 11:21 AM CDT Right flank pain CBC WITH AUTO DIFFERENTIAL Routine 08/12/2023 11:21 AM CDT Right flank pain PROTIME-INR STAT 08/12/2023 10:42 AM CDT Paroxysmal A-fib (HC) Anticoagulation monitoring, INR range 2-3 CT ABDOMEN PELVIS STONE PROTOCOL WO STAT 08/05/2023 10:18 AM CDT Right flank pain CBC WITH AUTO DIFFERENTIAL STAT 08/05/2023 9:52 AM CDT Diverticulitis of descending colon CBC WITH AUTO DIFFERENTIAL STAT 08/05/2023 9:52 AM CDT Diverticulitis of descending colon COMP METABOLIC PANEL STAT 08/05/2023 9:52 AM CDT Diverticulitis of descending colon from Last 3 Months Results * (ABNORMAL) PROTIME-INR (09/13/2023 2:20 PM CDT) Only the most recent of3 resultswithin the time period is included. INR 3.0(H) <1.3 09/13/2023 9:55 PM CDT [facility] PROTIME 32.9(H) 10.3 - 12.3 sec 09/13/2023 9:55 PM CDT [facility] Blood BLOOD SPECIMEN / Unknown Venipuncture / Unknown 09/13/2023 2:20 PM CDT 09/13/2023 2:21 PM CDT Narrative [facility] - 09/13/2023 9:55 PM CDT ?Therapeutic Range 2.0-3.0 for most anticoagulated patients 2.5-3.5 or 4.0 for high risk patients The INR is only used for patients on stable oral anticoagulant therapy. It makes no significant contribution to the diagnosis or treatment of patients whose Protime is prolonged for other reasons. INR results are increased when heparin levels exceed 1.0 U/mL, which corresponds to an aPTT >125 seconds if the patient is on UFH. Lee Broderick MD HEMATOLOGY Performing Organization Address City/[facility]/ZIP Co de Phone Number [facility] [address] [place] [id number], [place] * (ABNORMAL) LIPID PANEL W REFLEX MEASURED LDL (09/02/2023 9:05 AM CDT) [facility] CHOLESTEROL,TOTAL 134 100 - 199 mg/dL 09/02/2023 7:52 PM CDT [facility] Comment: Cholesterol, Total Reference Ranges Desirable <200 mg/dL Borderline 200-239 mg/dL High >=240 mg/dL TRIGLYCERIDES 143 <150 mg/dL 09/02/2023 7:52 PM CDT [facility] HDL CHOLESTEROL 36(L) >40 mg/dL 7:52 PM CDT [facility] NON-HDL CHOLESTEROL 98 <145 mg/dl 09/02/2023 7:52 PM CDT [facility] CHOL/HDL RATIO 3.72 <4.50 09/02/2023 7:52 PM CDT [facility] LDL CHOLESTEROL 69 <=130 mg/dL 09/02/2023 7:52 PM CDT [facility] VLDL CHOLESTEROL 29 <=30 mg/dL 09/02/2023 7:52 PM CDT [facility] PROVIDER ORDERED STATUS RANDOM 09/02/2023 7:52 PM CDT [facility] Blood BLOOD SPECIMEN / Unknown Venipuncture / Unknown 09/02/2023 9:05 AM CDT 09/02/2023 9:05 AM CDT Lee Broderick MD CHEMISTRY Performing Organization Address [facility]/ZIP Co de Phone Number [facility] [address] [place] [address], [place] * PSA TOTAL (DIAGNOSTIC) (09/02/2023 9:05 AM CDT) PSA TOTAL (DIAGNOSTIC) <0.02 <4.00 ng/mL 09/02/2023 7:54 PM CDT [facility] Blood BLOOD SPECIMEN / Unknown Venipuncture / Unknown 09/02/2023 9:05 AM CDT 09/02/2023 9:05 AM CDT Narrative [facility] - 09/02/2023 7:54 PM CDT The test method changed on 08/03/2022. If this test has been used for serial monitoring, rebaselining is recommended. Rebaselining consists of 2 measurements, collected 3-6 weeks apart. The [employer] total PSA assay is an electrochemiluminescence immunoassay ECLIA performed on the [employer] Vernell e immunoassay analyzers. Values obtained with different assay methods may be different and cannot be used interchangeably. Lee Broderick MD CHEMISTRY [facility] [address] [place] [address], * SCAN-MRI INTERPRETATION (08/24/2023 12:00 AM CDT) Anatomical Region Laterality Modality Other Scanner OTHER * MR SPINE LUMBAR WO (08/24/2023 12:00 AM CDT) Anatomical Region Laterality Modality Spine, LUMBAR SPINE Magnetic Res onance Hitesh Akbar MD MR * (ABNORMAL) INR,POCT (08/18/2023 8:46 AM CDT) INR 2.3(H) <1.3 08/18/2023 8:48 AM CDT [facility] Blood BLOOD SPECIMEN / Unknown Capillary / Unknown 08/18/2023 8:46 AM CDT 08/18/2023 8:46 AM CDT Narrative [facility] - 08/18/2023 8:48 AM CDT ?Therapeutic Range 2.0-3.0 for most anticoagulated patients 2.5-3.5 or 4.0 for high risk patients Lee Broderick MD LABORATORY [facility] [address] [place] [address], * URINE CULTURE (08/12/2023 11:28 AM CDT) CULTURE <10,000 CFU/mL multiple organisms 08/13/2023 2:39 PM CDT [facility] Urine URINE SPECIMEN / Unknown Non-Blood / Unknown 08/12/2023 11:28 AM CDT 08/12/2023 11:28 AM CDT Lee Broderick MD MICROBIOLOGY [facility] [address] [address], * UA W/ SEDIMENT EXAM REFLEXED PER CRITERIA (08/12/2023 11:28 AM CDT) COLOR Yellow Yellow Color 08/12/2023 11:33 AM CDT [facility] CLARITY Clear Clear Clarity 08/12/2023 11:33 AM CDT [facility] SPECIFIC GRAVITY,URINE 1.020 1.010, 1.015, 1.020, 1.025 08/12/2023 11:33 AM CDT [facility] PH,URINE 7.0 6.0, 7.0, 8.0, 5.5, 6.5, 7.5, 8.5 08/12/2023 11:33 AM CDT [facility] UROBILINOGEN, QUALITATIVE Normal Normal EU/dl 08/12/2023 11:33 AM CDT [facility] PROTEIN, URINE Negative Negative mg/dL 08/12/2023 11:33 AM CDT [facility] GLUCOSE, URINE Negative Negative mg/dL 08/12/2023 11:33 AM CDT [facility] KETONES,URINE Negative Negative mg/dL 08/12/2023 11:33 AM CDT [facility] BILIRUBIN,URI NE Negative Negative 08/12/2023 11:33 AM CDT [facility] OCCULT BLOOD,URINE Negative Negative 08/12/2023 11:33 AM CDT [facility] NITRITE Negative Negative 08/12/2023 11:33 AM CDT [facility] LEUKOCYTE ESTERASE Negative Negative 08/12/2023 11:33 AM CDT [facility] Urine URINE SPECIMEN / Unknown Non-Blood / Unknown 08/12/2023 11:28 AM CDT 08/12/2023 11:28 AM CDT Lee Broderick MD URINE [facility] [address] [place] [id number], [place] [phone] * (ABNORMAL) CBC WITH AUTO DIFFERENTIAL (08/12/2023 11:21 AM CDT) Only the most recent of2 resultswithin the time period is included. WHITE BLOOD COUNT 10.4 4.5 - 11.0 thou/cu mm 08/12/2023 11:26 AM CDT [facility] RED BLOOD COUNT 4.93 4.30 - 5.90 mil/cu mm 08/12/2023 11:26 AM CDT [facility] HEMOGLOBIN 16.1 13.5 - 17.5 g/dL 08/12/2023 11:26 AM CDT [facility] HEMATOCRIT 46.9 37.0 - 53.0 % 08/12/2023 11:26 AM CDT [facility] MCV 95 80 - 100 fL 08/12/2023 11:26 AM CDT [facility] MCH 32.7 26.0 - 34.0 pg 08/12/2023 11:26 AM CDT [facility] MCHC 34.3 32.0 - 36.0 g/dL 08/12/2023 11:26 AM CDT [facility] RDW 12.4 11.5 - 15.5 % 08/12/2023 11:26 AM CDT [facility] PLATELET COUNT 257 140 - 440 thou/cu mm 08/12/2023 11:26 AM CDT [facility] MPV 10.2 6.5 - 11.0 fL 08/12/2023 11:26 AM CDT [facility] % NEUT 62.8 % 08/12/2023 11:26 AM CDT [facility] % LYMPH 21.5 % 08/12/2023 11:26 AM CDT [facility] % MONO 12.6 % 08/12/2023 11:26 AM CDT [facility] % EOS 2.9 % 08/12/2023 11:26 AM CDT [facility] % BASO 0.2 % 08/12/2023 11:26 AM CDT [facility] ABSOLUTE NEUTROPHILS 6.6 1.7 - 7.0 thou/cu mm 08/12/2023 11:26 AM CDT [facility] ABSOLUTE LYMPHOCYTES 2.2 0.9 - 2.9 thou/cu mm 08/12/2023 11:26 AM CDT [facility] ABSOLUTE MONOCYTES 1.3(H) <0.9 thou/cu mm 08/12/2023 11:26 AM CDT [facility] ABSOLUTE EOSINOPHILS 0.3 <0.5 thou/cu mm 08/12/2023 11:26 AM CDT [facility] ABSOLUTE BASOPHILS 0.0 <0.3 thou/cu mm 08/12/2023 11:26 AM CDT [facility] Blood BLOOD SPECIMEN / Unknown Venipuncture / Unknown 08/12/2023 11:21 AM CDT 08/12/2023 11:22 AM CDT Lee Broderick MD HEMATOLOGY [facility] [address] [place] [address], * CT ABDOMEN PELVIS STONE PROTOCOL WO (08/05/2023 10:18 AM CDT) Anatomical Region Laterality Modality Abdomen, Pelvis, AORTA, LIVER, SPLEEN Computed Tomography 08/05/2023 10:5 9 AM CDT Impressions 08/05/2023 10:59 AM CDT 1. Acute uncomplicated diverticulitis of the descending colon. 2. Punctate nonobstructing nephrolithiasis without urinary tract dilatation. Please note that all CT scans at this facility use dose modulation, iterative reconstruction, and/or weight-based dosing when appropriate to reduce radiation dose to as low as reasonably achievable. Dictated by Nelda Jackson MD @ 08/05/2023 10:59:04 AM (Electronically Signed) Narrative 08/05/2023 10:59 AM CDT For Patients: ??As a result of the Century Cures Act, medical imaging exams and procedure reports are released immediately into your electronic medical record. ??You may view this report before your referring provider. ??If you have questions, please contact your health care provider. INDICATION: Flank pain, right. COMPARISON: 12/15/2007 TECHNIQUE: CT of the abdomen and pelvis without intravenous contrast. Multiplanar axial, coronal, and sagittal reformats were reconstructed. Contrast: None. FINDINGS: Lung bases: Right pleural thickening with a trace effusion and several calcified pleural plaques. Scattered calcified granulomas in both lung bases. These are not new findings. Basilar reticulation has progressed since 2007. Pattern is suspicious for fibrotic lung disease. Liver: Punctate calcified granuloma. Otherwise normal. Gallbladder and bile ducts: Cholecystectomy. No bile duct dilation. Pancreas: Normal. Spleen: Normal. Adrenal glands: Normal. Kidneys: Normal noncontrast appearance of both kidneys. There is a 1 millimeter nonobstructing calculi in the right upper pole. No ureteral calculi on the right. Punctate nonobstructing left urinary tract calculi. Left parapelvic cysts. No urinary tract dilation. Urinary bladder: Barely filled at the time of the exam. Pelvis: Brachytherapy implants in the prostate. Vessels: Atherosclerosis. No aortic aneurysm. Bowel: No dilated or inflamed small bowel. The appendix is not discretely seen.. Focally inflamed diverticuli in the distal descending colon. No adjacent phlegmon or free air. Overall the colonic diverticular burden is moderate to heavy. Mild stool burden. Lymph nodes: No adenopathy. Peritoneum: No ascites. Abdominal wall: Fat containing left inguinal hernia. Bones: Right sacroiliac fusion with a fully threaded screw. No loosening or hardware failure. Degenerative change in the spine. No acute fractures. No focal worrisome bone lesions. Procedure Note Nelda Jackson MD - 08/05/2023 For Patients: As a result of the Cures Act, medical imagingexams and procedure reports are released immediately into your electronicmedical record. You may view this report before your referring provider.If you have questions, please contact your health care provider. INDICATION: Flank pain, right. COMPARISON: 12/15/2007 TECHNIQUE: CT of the abdomen and pelvis without intravenous contrast. Multiplanaraxial, coronal, and sagittal reformats were reconstructed. Contrast: None. FINDINGS: Lung bases: Right pleural thickening with a trace effusion and severalcalcified pleural plaques. Scattered calcified granulomas in both lungbases. These are not new findings. Basilar reticulation has progressedsince 2007. Pattern is suspicious for fibrotic lung disease. Liver: Punctate calcified granuloma. Otherwise normal. Gallbladder and bile ducts: Cholecystectomy. No bile duct dilation. Pancreas: Normal. Spleen: Normal. Adrenal glands: Normal. Kidneys: Normal noncontrast appearance of both kidneys. There is a 1millimeter nonobstructing calculi in the right upper pole. No ureteralcalculi on the right. Punctate nonobstructing left urinary tract calculi.Left parapelvic cysts. No urinary tract dilation. Urinary bladder: Barely filled at the time of the exam. Pelvis: Brachytherapy implants in the prostate. Vessels: Atherosclerosis. No aortic aneurysm. Bowel: No dilated or inflamed small bowel. The appendix is not discretelyseen.. Focally inflamed diverticuli in the distal descending colon. Noadjacent phlegmon or free air. Overall the colonic diverticular burden ismoderate to heavy. Mild stool burden. Lymph nodes: No adenopathy. Peritoneum: No ascites. Abdominal wall: Fat containing left inguinal hernia. Bones: Right sacroiliac fusion with a fully threaded screw. No looseningor hardware failure. Degenerative change in the spine. No acute fractures.No focal worrisome bone lesions. IMPRESSION: 1. Acute uncomplicated diverticulitis of the descending colon. 2. Punctate nonobstructing nephrolithiasis without urinary tractdilatation. Please note that all CT scans at this facility use dose modulation,iterative reconstruction, and/or weight-based dosing when appropriate toreduce radiation dose to as low as reasonably achievable. Dictated by Nelda Jackson MD @ 08/05/2023 10:59:04 AM (Electronically Signed) Camila Hernandes MD CT * (ABNORMAL) COMP METABOLIC PANEL (08/05/2023 9:52 AM CDT) SODIUM 141 136 - 145 mmol/L 08/05/2023 1:24 PM [facility] POTASSIUM 3.9 3.5 - 5.1 mmol/L 08/05/2023 1:24 PM [facility] CHLORIDE 100 98 - 107 mmol/L 08/05/2023 1:24 PM [facility] CO2,TOTAL 32(H) 22 - 29 mmol/L 08/05/2023 1:24 PM [facility] ANION GAP 9 5 - 18 08/05/2023 1:24 PM [facility] GLUCOSE 103(H) 70 - 99 mg/dL 08/05/2023 1:24 PM [facility] CALCIUM 9.8 8.8 - 10.2 mg/dL 08/05/2023 1:24 PM [facility] BUN 20 8 - 23 mg/dL 08/05/2023 1:24 PM [facility] CREATININE 1.01 0.70 - 1.20 mg/dL 08/05/2023 1:24 PM [facility] BUN/CREAT RATIO 20 10 - 20 1:24 PM [facility] eGFR 72(L) >90 mL/min/1.7 3m2 08/05/2023 1:24 PM [facility] Comment:As of 2021, eG FR is calculated by the CKD-EPI creatinine equation without race adjustment. ??eGFR can be influenced by muscle mass, exercise, and diet. ??The reported eGFR is an estimation only and is only applicable if the renal function is stable. ALBUMIN 4.0 4.0 - 4.9 g/dL 08/05/2023 1:24 PM CDT [facility] PROTEIN,TOTAL 7.4 6.0 - 8.0 g/dL 08/05/2023 1:24 PM T [facility] BILIRUBIN,TOTAL 2.4(H) 0.0 - 1.2 mg/dL 08/05/2023 1:24 PM CDT [facility] ALK PHOSPHATASE 93 40 - 129 IU/L 08/05/2023 1:24 PM T [facility] ALT (SGPT) 9(L) 10 - 50 IU/L 08/05/2023 1:24 PM CDT [facility] AST (SGOT) 25 10 - 50 IU/L 08/05/2023 1:24 PM T [facility] Blood BLOOD SPECIMEN / Unknown Venipuncture / Unknown 08/05/2023 9:52 AM CDT 08/05/2023 9:53 AM CDT Camila Hernandes MD CHEMISTRY Performing Organization Address City/State/[facility] Co de Phone Number [facility] [address] [place] [address] from Last 3 Months Advance Directives Documents on File Type Date Recorded Patient Knuckler Expl anation Healthcare Directive 08/13/2014 12:00 AM 08/08/14 * Full Code (Latest Code Status on File) Date Activated Date Inactivated Comments 06/14/2012 10:18 AM 06/16/2012 1:47 PM * Full Code Date Activated Date Inactivated Comments 10/20/2007 6:40 PM 10/23/2007 4:59 PM Care Teams Obiee Obia Solution Architect Relationship Specialty Start Date End Date Lee Broderick MD [address] [place] [address] PCP - General Family Practice 07/02/20 Vira Polanco AuD Audiology 09/11/12
--- OUTSIDE RECORDS SUMMARY | 2023-10-03 03:07 | XMS_ITS | Encounter Summary ---
Author Organization [facility] Address [address] [place] [address] Care Team Providers Care Ground Operations Supervisor Name Role Phone Elsewhere, Pcp Primary Care Provider Unavailabl e Encounter Details Date Type Department Care Team (Late st Contact Info) Description 08/17/2023 Clinical Communication Department of Radiology in [place], [place] [address] [place] [phone] Shima Markham, RBonyN. Social History Tobacco Use Types Packs/Day Years Used Date Smoking Tobacco: Former Cigarettes 1 25 0 02/08/1956 - 02/07/1981 Passive Smoke Exposure: Past Smokeless Tobacco: Never Chew Quit: 03/03/1981 Passive Exposure Comments:No t for Years Alcohol Use Standard Drinks/Week Comments Yes 7 (1 standard drink = 0.6 oz pur e alcohol) [facility] Utilities Answer Date Recorded In the past 12 months has [facility] [employer], gas, oil, or water [employer] threatened to shut off services in your [...] How often do you attend chur or anabaptist services? More than 4 times per year 06/09/2022 Do you belong to any clubs o r organizations such as mandaen groups, unions, fraternal or athletic groups, or [...] Answer Date Recorded PHQ-2 Score 0 09/21/2018 [facility] - Occupational Stress Questionnaire Answer Date [...] your living situation today? I have a [facility] place to live 06/22/2023 Education Answer Date Recorded What is the highest level of school you have completed or the highest degree you have received? 12th grade 06/09/2022 Sex and Gender Information Value Date Recorded Sex Assigned at Male 01/03/2018 1:26 PM C4 PLANNER Gender Identity Not on file Sexual Orientation Straight 01/03/2018 1: 26 PM C4 PLANNER documented as of this encounter Miscellaneous Notes * Telephone Encounter - Shima Markham R.N. - 08/17/2023 11:41 AM CDT Suprapubic catheter placement procedure rescheduled at [facility] on 08/25/[address] Thrasher. Report time 7:00 a.m. at [facility]. Patient informed to hold warfarin for 5 days prior to procedure per Thrombophilia recommendations. Requesting service to notify the patient of these appointments. documented in this encounter Plan of Treatment Upcoming Encounters Date Type Department Care Team (Late st Contact Info) Description 10/06/2023 1:00 PM CDT Procedure visit Department of Urology in [place], [place] [address] [place] [phone] Wade Amanda M.D. [address] [place] [phone] 10/06/2023 1:30 PM CDT Office Visit Department of Urology in [place], [place] [address] [place] [phone] Wade Amanda M.D. [address] [place] [phone] 10/13/2023 8:30 AM CDT Procedure visit Department of Dermatology in [place], [place] [address] [place] [phone] Antolin Ibrahim M.D. [address] [place] [phone] documented as of this encounter Visit Diagnoses Not on filedocumented in this encounter Care Teams Ground Operations Supervisor Relationship Specialty Start Date End Date Elsewhere, Pcp PCP - General Family Medicine 06/08/22 documented as of this encounter
--- OUTSIDE RECORDS SUMMARY | 2023-10-03 03:07 | XMS_ITS | Encounter Summary ---
Author Organization [facility] Address [address] [place] [phone] Care Team Providers Care Social Work Manager Name Role Phone Elsewhere, Pcp Primary Care Provider Unavailabl e Reason for Visit * Outpatient (Routine) - Closed Specialty Diagnoses / Procedures Referred By Alexander ridley Referred To Contact Vascular Medicine Diagnoses Coronary Stent Status Post Atrial Fibrillation Paroxysmal (HCC) Thrombosis Deep Vein Personal History Procedures Vascular Medicine - Thrombophilia periprocedural eConsult Wade Amanda M.D. [address] [place] [phone] [facility] Referral ID Status Reason Start Date Expiration Date Visits Re quested Visits Authorized [id number] Closed 07/27/2023 07/26/2024 1 1 Encounter Details Date Type Department Care Team (Latest Contact Info) Description 07/29/2023 1:00 PM CDT Internal E-Consult Department of Vascular Medicine in [place], [place] [address] [place] [phone] María Thomas APRN, C.N.P., M.S. [address] [place] [phone] Coronary Stent Status Post; Atrial Fibrillation Paroxysmal (HCC); Thrombosis Deep Vein Personal History Social History Tobacco Use Types Packs/Day Years Used Date Smoking Tobacco: Former Cigarettes 1 25 0 02/08/1956 - 02/07/1981 Passive Smoke Exposure: Past Smokeless Tobacco: Never Chew Quit: 03/03/1981 Passive Exposure Comments:No t for Years Alcohol Use Standard Drinks/Week Comments Yes 7 (1 standard drink = 0.6 oz pur e alcohol) [facility] Utilities Answer Date Recorded In the [...] often do you attend chur ch or pentecostal services? More than 4 times per year 06/09/2022 Do you belong to any clubs o r organizations such as mosque groups, unions, fraternal or athletic groups, or [...] Answer Date Recorded PHQ-2 Score 0 09/21/2018 [employer] [facility] - Occupational Stress [...] your living situation today? I have a [facility] place to live 06/22/2023 Education Answer Date Recorded What is the highest level of school you have completed or the highest degree you have received? 12th grade 06/09/2022 Sex and Gender Information Value Date Recorded Sex Assigned at Male 01/03/2018 1:26 PM SPRAY I PAINTER Gender Identity Not on file Sexual Orientation Straight 01/03/2018 1: 26 PM SPRAY I PAINTER documented as of this encounter Consult Notes * María Thomas APRN, C.N.P., M.S. - 07/29/2023 1:00 PM CDT VASCULAR MEDICINE PERIPROCEDURAL E-CONSULT NOTE Referring Provider: Wade Amanda M.D. Reason for Consult: hold coumadin prior to SPT placement? (date of SPT placement pending based on this review) SUBJECTIVE The patient has been neither seen nor examined; this consultation is based entirely upon information available in the [facility] electronic medical record. Clinical question to be answered: hold coumadin prior to SPT placement? (date of SPT placement pending based on this review) Chief Complaint / Reason for Visit A consult was placed regarding Peña Reddy, a 88 y.o. male for periprocedural recommendationsof anticoagulation management. Type of procedure: Suprapubic tube catheter placement Date of procedure: Unknown Current antithrombotic(s): Warfarin (Coumadin): 2-3 Reason(s) for Anticoagulation: Non-valvular paroxysmal atrial fibrillation/flutter: History of TIA/Stroke/Arterial Embolism: no History of major bleeding: no His past medical history is relevant for paroxysmal atrial fibrillation on warfarin and remote history of DVT. OBJECTIVE The patient has been neither seen nor examined. DIAGNOSTICS I have reviewed pertinent laboratory and imaging studies. Labs and images studies of note include: 02/10/2023 Cr. 1.09 eGFR 66 ASSESSMENT / PLAN #1 Coronary Stent Status Post #2 Atrial Fibrillation Paroxysmal (HCC) #3 Thrombosis Deep Vein Personal History Mr. Reddy is a 88 y.o. male with history of paroxysmal atrial fibrillation on warfarin for stroke prophylaxis. The patient is scheduled for suprapubic tube catheter placement the date of procedure is to be determined at this time. In preparation for the procedure he should follow the recommendations provided below. It is the responsibility of the referring provider or their team to communicate and implement the outlined plan since there was no interaction with the patient from this econsult. RECOMMENDATIONS Recommendations: 1. Hold warfarin 5 days prior to the procedure. 2. Resume warfarin at the usual dose as soon as it is safe from the surgical perspective (evening of the procedure or the day after). 3. INR check with the usual provider 3-4 days after re-initiation of warfarin. The patient was not personally interviewed or examined. The history and examination findings are based on the clinical documentation provided and/or discussed with a physician or provider who had personally interviewed and examined the patient. Time spent: Five minutes or more of medical review. Ask [place] Expert periprocedural anticoagulation calculator [email or web address]/[email or web address] documented in this encounter Plan of Treatment Upcoming Encounters Date Type Department Care Team (Late st Contact Info) Description 10/06/2023 1:00 PM CDT Procedure visit Department of Urology in [place], [place] [address] [place] [phone] Wade Amanda M.D. [address] [place] [phone] 10/06/2023 1:30 PM CDT Office Visit Department of Urology in [place], [place] [address] [place] [phone] Wade Amanda M.D. [address] [place] [phone] 10/13/2023 8:30 AM CDT Procedure visit Department of Dermatology in [place], [place] [address] [place] [phone] Antolin Ibrahim M.D. [address] [place] [phone] documented as of this encounter Visit Diagnoses Diagnosis Coronary Stent Status Post Atrial Fibrillation Paroxysmal (HCC) Thrombosis Deep Vein Personal History documented in this encounter Care Teams Social Work Manager Relationship Specialty Start Date End Date Elsewhere, Pcp PCP - General Family Medicine 06/08/22 documented as of this encounter
--- OUTSIDE RECORDS SUMMARY | 2023-10-03 03:08 | XMS_ITS | Encounter Summary ---
Author Organization [facility] Address [address] [place] [address] Care Team Providers Care State Inspector Name Role Phone Elsewhere, Pcp Primary Care Provider Unavailabl e Reason for Referral * Outpatient (Routine) - Closed Specialty Diagnoses / Procedures Referred By Alexander ridley Referred To Contact Pulmonary Medicine Diagnoses Restrictive Lung Disease Dyspnea On Exertion Abel Gomez M.D. [address] [place] [phone] [facility] Referral ID Status Reason Start Date Expiration Date Visits Re quested Visits Authorized [id number] Closed 11/09/2017 11/09/2018 1 1 Encounter Details Date Type Department Care Team (Late st Contact Info) Description 11/09/2017 [facility] [address] [place] [address] Abel Gomez M.D. [address] [place] [phone] Restrictive Lung Disease (Primary Dx); Dyspnea On Exertion Social History Tobacco Use Types Packs/Day Years Used Date Smoking Tobacco: Former Sex and Gender Information Value Date Recorded Sex Assigned at Male 01/03/2018 1:26 PM FOREST TECHNICIAN Gender Identity Not on file Sexual Orientation Straight 01/03/2018 1: 26 PM FOREST TECHNICIAN documented as of this encounter Plan of Treatment Upcoming Encounters Date Type Department Care Team (Late st Contact Info) Description 10/06/2023 1:00 PM CDT Procedure visit Department of Urology in [place], [place] [address] [place] [phone] Wade Amanda M.D. [address] [place] [phone] 10/06/2023 1:30 PM CDT Office Visit Department of Urology in [place], [place] [address] [place] [phone] Wade Amanda M.D. [address] [place] [phone] 10/13/2023 8:30 AM CDT Procedure visit Department of Dermatology in [place], [place] [address] [place] [phone] Antolin Ibrahim M.D. [address] [place] [phone] Scheduled Referrals Name Type Priority Associated Diagnoses Orde r Schedule Pulmonary Medicine Referral Outpatient Referral Routine Restrictive Lung Disease Dyspnea On Exertion Expected: 11/09/2017 (Approximate), Expires: 11/09/2020 documented as of this encounter Visit Diagnoses Diagnosis Restrictive Lung Disease- Primary Dyspnea On Exertion documented in this encounter Care Teams State Inspector Relationship Specialty Start Date End Date Elsewhere, Pcp PCP - General Family Medicine 06/08/22 documented as of this encounter
--- OUTSIDE RECORDS SUMMARY | 2023-10-03 03:08 | XMS_ITS | Encounter Summary ---
Author Organization [facility] Address [address] [place] [address] Care Team Providers Care Front End Specialist Name Role Phone Elsewhere, Pcp Primary Care Provider Unavailabl e Reason for Referral * Outpatient (Routine) - Authorized Specialty Diagnoses / Procedures Referred By Alexander ridley Referred To Contact Urology Wade Amanda M.D. [address] [place] [phone] Wade Amanda M.D. [address] [place] [address] Referral ID Status Reason Start Date Expiration Date V isits Requested Visits Authorized [id number] Authorized 06/27/2023 12/26/2024 1 1 * Outpatient (Routine) - Authorized Specialty Diagnoses / Procedures Referred By Contac t Referred To Contact Diagnoses Enlarged Prostate With Lower Urinary Tract Symptoms Procedures URO Uroflow Wade Amanda M.D. [address] [place] [phone] [facility] Referral ID Status Reason Start Date Expiration Date V isits Requested Visits Authorized [id number] Authorized 06/27/2023 06/26/2024 1 1 Reason for Visit * Outpatient (Routine) - Closed Specialty Diagnoses / Procedures Referred By Contac t Referred To Contact Urology Diagnoses Enlarged Prostate With Lower Urinary Tract Symptoms Richa Mar, EDIE, PBonyABony-C. [address] [place] [address] [facility] Referral ID Status Reason Start Date Expiration Date Visits Re quested Visits Authorized [id number] Closed 06/02/2023 12/01/2024 1 1 Encounter Details Date Type Department Care Team (Latest Contact Info) Description 06/27/2023 1:00 PM CDT Comprehensive Visit Department of Urology in [place], [place] [address] [place] [phone] Wade Amanda M.D. [address] [place] [phone] Enlarged Prostate With Lower Urinary Tract Symptoms Social History Tobacco Use Types Packs/Day Years Used Date Smoking Tobacco: Former Cigarettes 1 25 0 02/08/1956 - 02/07/1981 Passive Smoke Exposure: Past Smokeless Tobacco: Never Chew Quit: 03/03/1981 Passive Exposure Comments:No t for Years Alcohol Use Standard Drinks/Week Comments Yes 7 (1 standard drink = 0.6 oz pur e alcohol) [facility] Utilities Answer Date Recorded In the past 12 months has [facility] [employer], gas, oil, or water [employer] threatened to shut off services in your [...] often do you attend chur ch or jainism services? More than 4 times per year 06/09/2022 Do you belong to any clubs o r organizations such as restoration groups, unions, fraternal or athletic groups, or [...] Answer Date Recorded PHQ-2 Score 0 09/21/2018 [facility] Occupat ional Health - Occupational [...] your living situation today? I have a [facility] place to live 06/22/2023 Education Answer Date Recorded What is the highest level of school you have completed or the highest degree you have received? 12th grade 06/09/2022 Sex and Gender Information Value Date Recorded Sex Assigned at Male 01/03/2018 1:26 PM DIRECTOR OF DIRECT MARKETING Gender Identity Not on file Sexual Orientation Straight 01/03/2018 1: 26 PM DIRECTOR OF DIRECT MARKETING documented as of this encounter H&P Notes * Richa Mar MPAS, P.A.-C. - 06/27/2023 1:00 PM CDT REASON FOR REFERRAL Benign prostatic hyperplasia HISTORY OF PRESENT ILLNESS Mr. Reddy is a pleasant 88 y.o. male who presents today for evaluation of benign prostatic hyperplasia and lower urinary tract symptoms. He has a history of prostate cancer and underwent brachytherapy in 1994. He was most recently seen by Dr. García's team for a suspicious papillary bladder mass. He reported worsening of his lower urinary tract symptoms, and has been referred for additional discussion of treatment options. He continues to struggle with his lower urinary tract symptoms which include weak stream, frequency, urgency, nocturia 3+ times nightly. He does take tamsulosin 0.8 mg daily at bedtime, and denies concerns with side effects from the medication. 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 BRACHYTHERAPY PROSTATE N/A 06/29/2002 >Interstitial prostate brachytherapy. CATH ANGIOGRAM N/A 03/06/2018 Procedure: CORONARY ANGIOGRAPHY; Surgeon: Farheen Branch M.D.; Location: [facility] CATH ANGIOGRAM N/A 03/06/2018 Procedure: HEART CATHETERIZATION - RIGHT; Surgeon: Farheen Branch M.D.; Location: [facility] CATH INTERVENTION N/A 03/06/2018 Procedure: Stent Placement; Surgeon: Farheen Branch M.D.; Location: [facility] CATH PTCA N/A 03/06/2018 Procedure: Percutaneous Coronary Angioplasty; Surgeon: Farheen Branch M.D.; Location: [facility] CORONARY STENT PLACEMENT CYSTOSCOPY WITH TRANSURETHRAL RESECTION LESION BLADDER N/A 09/24/2022 Procedure: CYSTOSCOPY, TRANSURETHRAL RESECTION LESION BLADDER; Surgeon: Jake Reynolds M.D.; Location: [place] [address] OR GALLBLADDER SURGERY HERNIA REPAIR LUNG SURGERY MECHANICAL PLEURODESIS MOHS EXCISION OF LESION N/A 07/30/2016 >Mohs micrographic surgery with complex layered closure with M-plasty modification. MOHS EXCISION OF LESION N/A 08/06/2015 >1. Mohs micrographic surgery with intermediate layered closure. MOHS EXCISION OF LESION N/A 07/07/2011 >Mohs micrographic surgery with intermediate layered closure. MOHS EXCISION OF LESION N/A 02/09/2012 >1. Mohs micrographic surgery with intermediate layered closure. PELVIS FX CR INTERNAL FIX Right 10/26/2016 pelvis fx CR internal fix Notes: sacroiliac Fusion, closed PROSTATE SURGERY TONSILLECTOMY MEDICATIONS Current Medications Current Outpatient Medications: acetaminophen (TYLENOL) 500 mg tablet, Take 2 tablets by mouth every 8 (eight) hours as needed. pain. Max tylenol dose 3000mg in 24 hours, Disp: , Rfl: atorvastatin (LIPITOR) 40 mg tablet, Take 1 tablet by mouth at bedtime., Disp: , Rfl: calcium citrate-vitamin D3 (CITRACAL + D MAXIMUM) 315-250 mg-unit per tablet, Take 1 tablet by mouth daily. bone health, Disp: , Rfl: losartan (COZAAR) 50 mg tablet, TAKE 1 TABLET(50 MG) BY MOUTH EVERY DAY, Disp: , Rfl: metoprolol succinate (TOPROL-XL) 25 mg 24 hr tablet, Take 1 tablet (25 mg total) by mouth daily. Donot crush or chew. PLUS a 50mg tablet daily, Disp: 90 tablet, Rfl: 3 nitroglycerin (NITROSTAT) 0.4 mg SL tablet, Place 0.4 mg under the tongue every 5 (five) minutes asneeded for chest pain., Disp: , Rfl: tamsulosin (FLOMAX) 0.4 mg 24 hr capsule, Take 2 capsules by mouth daily. BPH , Disp: , Rfl: triamterene-hydroCHLOROthiazide (DYAZIDE) 37.5-25 mg per capsule, TK 1 C PO D, Disp: , Rfl: vit A/vit C/vit E/zinc/copper (PRESERVISION AREDS ORAL), Take 1 capsule by mouth 2 (two) times a day., Disp: , Rfl: warfarin (COUMADIN) 2 mg tablet, TAKE 2 TABLETS BY MOUTH EVERY DAY IN THE EVENING OR DIRECTED You may resume 24-48 hours after your urologic surgery if no significant blood in the urine., Disp: , Rfl: ALLERGIES Allergies Allergies Allergen Reactions Codeine Headache Other reaction(s): mild SOCIAL HISTORY Social History Social History Tobacco Use Smoking status: Former Current packs/day: 0.00 Average packs/day: 1 pack/day for 25.0 years (25.0 ttl pk-yrs) Types: Cigarettes Start date: 02/08/1956 Quit date: 02/07/1981 Years since quittin.3 Passive exposure: Past (Not for Years) Smokeless tobacco: Never Vaping Use Vaping status: never used Substance Use Topics Alcohol use: Yes Alcohol/week: 7.0 standard drinks of alcohol Types: 7 Cans of beer per week Drug use: Never FAMILY HISTORY Family History Family History Problem Relation Name Age of Onset Pulmonary fibrosis Neg Hx SYSTEMS REVIEW Per HPI PHYSICAL EXAMINATION General: Alert, oriented, no acute distress LABS Lab Results Component Value Date NA 139 02/10/2023 CL 100 02/10/2023 BUN 24 (H) 02/10/2023 CO2 27 08/26/2021 HGB 16.1 08/27/2022 HCT 47.6 08/26/2021 WBC 16.8 (H) 08/26/2021 Lab Results Component Value Date/Time CREATININE 1.09 02/10/2023 07:37 PM CREATININE 1.13 09/09/2022 07:17 AM CREATININE 1.12 08/27/2022 11:28 AM CREATININE 1.06 08/26/2021 02:49 PM CREATININE 1.17 07/31/2019 02:08 PM CREATININE 1.27 04/19/2018 11:47 AM CREATININE 1.23 03/06/2018 08:01 AM CREATININE 1.09 12/19/2017 03:55 PM IMAGING AND TESTS No results found. IMPRESSION/REPORT/PLAN #1 Benign prostatic hyperplasia #2 Prostate cancer, status post brachytherapy #3 Urge incontinence It was a pleasure meeting with Mr. Reddy today for evaluation in conjunction with Dr. Amanda. We had a detailed discussion with the patient regarding the findings from his most recent cystoscopy. Hehas evidence of scar tissue/stricture with calcifications which would not benefit from the UroLift p rocedure. Dr. Amanda presented the patient with the options for treatment if desired. These optionsinclude indwelling catheterization long-term, self dilation daily, or buccal graft urethroplasty. He discussed the risk of urinary incontinence with urethroplasty. After discussions, the patient has elected to continue with current management. We will plan to see him back in 6 months with a repeat uroflow. Patient will monitor his symptoms and contact the team if he would like to be seen prior tothat timeframe. Plan Follow up in 6 months with office visit and uroflow. Answers submitted by the patient for this visit: Urinary Symptoms (Submitted on 06/22/2023) Frequent urination (more than what you would consider normal): Yes Weak/poor urine stream: Yes Dribbling of urine after urinating: Yes None of the above: Yes Are you able to sense when your bladder is full?: No How many times daily do you typically urinate during the day?: 8 How many times do you typically wake up and urinate at night?: 4 Have you had a urinary tract infection (UTI) within the past 1 year, and if so how many?: not applicable Have you had any kidney infections or required hospitalized for kidney failure?: No Have you required a catheter placed because you could not empty your bladder?: No Do you ever unintentionally leak urine?: Yes Have you ever or are currently taking any treatments to treat your urinary symptoms?: medications Have you ever had any surgical or office procedures to improve your urinary symptoms?: No (Submitted on 06/22/2023) Did those treatments help your symptoms?: No (Submitted on 06/22/2023) Do you leak when you cough, sneeze, or lift heavy objects?: Yes Do you often experience a feeling of urgency (needing to go the bathroom) before leaking?: No documented in this encounter Plan of Treatment Upcoming Encounters Date Type Department Care Team (Late st Contact Info) Description 10/06/2023 1:00 PM CDT Procedure visit Department of Urology in [place], [place] [address] [place] [address] Wade Amanda M.D. [address] [place] [address] 10/06/2023 1:30 PM CDT Office Visit Department of Urology in [place], [place] [address] [place] [address] Wade Amanda M.D. [address] [place] [phone] 10/13/2023 8:30 AM CDT Procedure visit Department of Dermatology in [place], [place] [address] [place] [address] Antolin Ibrahim M.D. [address] [place] [phone] Scheduled Orders Name Type Priority Associated Diagnoses Orde r Schedule URO Uroflow Procedure Routine Enlarged Prostate With Lower Urinary Tract Symptoms Expected: 12/28/2023, Expires: 09/26/2024 Scheduled Referrals Name Type Priority Associated Diagnoses Orde r Schedule Urology office visit (clinic) Outpatient Referral Routine Expected: 12/28/2023, Expires: 09/26/2024 documented as of this encounter Visit Diagnoses Diagnosis Enlarged Prostate With Lower Urinary Tract Symptoms documented in this encounter Care Teams Front End Specialist Relationship Specialty Start Date End Date Elsewhere, Pcp PCP - General Family Medicine 06/08/22 documented as of this encounter
--- OUTSIDE RECORDS SUMMARY | 2023-10-03 03:08 | XMS_ITS | Encounter Summary ---
Author Organization [facility] Address [address] [place] [address] Care Team Providers Care Hacksaw Inspector Name Role Phone Elsewhere, Pcp Primary Care Provider Unavailabl e Reason for Referral * Outpatient (Routine) - Authorized Specialty Diagnoses / Procedures Referred By Alexander ridley Referred To Contact Dermatology Diagnoses Squamous Cell Carcinoma In Situ Procedures RICCI MOHS 1-4 sites Matilda Ding M.D. [facility] Referral ID Status Reason Start Date Expiration Date V isits Requested Visits Authorized [id number] Authorized 06/15/2023 06/14/2024 1 1 Encounter Details Date Type Department Care Team (Late st Contact Info) Description 06/15/2023 Orders Only Department of Dermatology in [place], [place] [address] [place] [phone] Pasha Izaguirre M.D. [address] [place] [address] Squamous Cell Carcinoma In Situ (Primary Dx) Social History Tobacco Use Types Packs/Day Years Used Date Smoking Tobacco: Former Cigarettes 1 25 0 02/08/1956 - 02/07/1981 Passive Smoke Exposure: Past Smokeless Tobacco: Never Chew Quit: 03/03/1981 Passive Exposure Comments:No t for Years Alcohol Use Standard Drinks/Week Comments Yes 7 (1 standard drink = 0.6 oz pur e alcohol) [facility] Utilities Answer Date Recorded In the past 12 months has e [employer], gas, oil, or water [employer] threatened to shut off services in your [...] How often do you attend chur or latter-day services? More than 4 times per year [...] Answer Date Recorded PHQ-2 Score 0 09/21/2018 [facility] of Occupat ional Health - Occupational Stress [...] your living situation today? I have a [facility] place to live 06/22/2023 Education Answer Date Recorded What is the highest level of school you have completed or the highest degree you have received? 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 [address] [place] [address] 10/06/2023 1:30 PM CDT Office Visit Department of Urology in [place], [place] [address] [place] [address] Wade Amanda M.D. [address] [place] [phone] 10/13/2023 8:30 AM CDT Procedure visit Department of Dermatology in [place], [place] [address] [place] [address] Antolin Ibrahim M.D. [address] [place] [phone] Scheduled Orders Name Type Priority Associated Diagnoses Orde r Schedule RICCI MOHS 1-4 sites Dermatology Routine Squamous Cell Carcinoma In Situ Expected: 06/29/2023, Expires: 09/14/2024 documented as of this encounter Visit Diagnoses Diagnosis Squamous Cell Carcinoma In Situ- Primary documented in this encounter Care Teams Hacksaw Inspector Relationship Specialty Start Date End Date Elsewhere, Pcp PCP - General Family Medicine 06/08/22 documented as of this encounter
--- OUTSIDE RECORDS SUMMARY | 2023-10-03 03:08 | XMS_ITS | Encounter Summary ---
Author Organization [facility] Address [address] [place] [address] Care Team Providers Care Rail Operations Controller Name Role Phone Elsewhere, Pcp Primary Care Provider Unavailabl e Reason for Referral * Outpatient (Routine) - Closed Specialty Diagnoses / Procedures Referred By Alexander ridley Referred To Contact Urology Wade Amanda M.D. [address] [place] [phone] Wade Amanda M.D. [address] [place] [phone] Referral ID Status Reason Start Date Expiration Date Visits Re quested Visits Authorized [id number] Closed 07/12/2023 01/10/2025 1 1 Encounter Details Date Type Department Care Team (Late st Contact Info) Description 07/11/2023 Clinical Communication Department of Urology in [place], [place] [address] [place] [phone] Wade Amanda M.D. [address] [place] [phone] Social History Tobacco Use Types Packs/Day Years Used Date Smoking Tobacco: Former Cigarettes 1 25 0 02/08/1956 - 02/07/1981 Passive Smoke Exposure: Past Smokeless Tobacco: Never Chew Quit: 03/03/1981 Passive Exposure Comments:No t for Years Alcohol Use Standard Drinks/Week Comments Yes 7 (1 standard drink = 0.6 oz pur e alcohol) [facility] Utilities Answer Date Recorded In the [...] often do you attend chur ch or anglican services? More than 4 times per year 06/09/2022 Do you belong to any clubs o r organizations such as temple groups, unions, fraternal or athletic groups, or [...] Answer Date Recorded PHQ-2 Score 0 09/21/2018 [facility] [place] of Occupat ional Health - Occupational Stress [...] your living situation today? I have a [facility] place to live 06/22/2023 Education Answer Date Recorded What is the highest level of school you have completed or the highest degree you have received? 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 - 07/12/2023 12:40 PM CDT SUBJECTIVE CHIEF COMPLAINT / REASON FOR CALL No chief complaint on file. Information Discussed Spoke to patient. He wants to have a phone call with Dr. Amanda to discuss things again. He will thus meet with Dr. Amanda this 07/13 at 3:30 via a phone call. PLAN Disposition/Recommendation: appointment Information/Education: patient/caller able to teach back Caller agreeable to plan of care: yes The following references were used: nursing clinical judgement documented in this encounter Plan of Treatment Upcoming Encounters Date Type Department Care Team (Late st Contact Info) Description 10/06/2023 1:00 PM CDT Procedure visit Department of Urology in [place], [place] [address] [place] [phone] Wade Amanda M.D. [address] [place] [phone] 10/06/2023 1:30 PM CDT Office Visit Department of Urology in [place], [place] [address] [place] [phone] Wade Amanda M.D. [address] [place] [phone] 10/13/2023 8:30 AM CDT Procedure visit Department of Dermatology in [place], [place] [address] [place] [phone] Antolin Ibrahim M.D. [address] [place] [phone] Scheduled Referrals Name Type Priority Associated Diagnoses Orde r Schedule Urology office visit (clinic) General Outpatient Referral Routine Expected: 07/14/2023, Expires: 10/11/2024 documented as of this encounter Visit Diagnoses Not on filedocumented in this encounter Care Teams Rail Operations Controller Relationship Specialty Start Date End Date Elsewhere, Pcp PCP - General Family Medicine 06/08/22 documented as of this encounter
--- OUTSIDE RECORDS SUMMARY | 2023-10-03 03:08 | XMS_ITS | Encounter Summary ---
Author Organization [facility] Address [address] [place] [address] Care Team Providers Care Camouflage Assembler Name Role Phone Elsewhere, Pcp Primary Care Provider Unavailabl e Reason for Referral * Specialty Diagnoses / Procedures Referred By Contac t Referred To Contact [facility] [address] [place] [phone] [facility] Referral ID Status Reason Start Date Expiration Date Visits Re quested Visits Authorized Reason for Visit * Reason Onset Date Comments Appt Request 06/20/2023 Encounter Details Date Type Department Care Team (Late st Contact Info) Description 06/20/2023 Clinical Communication Department of Urology in [place], [place] [address] [place] [phone] Wade Amanda M.D. [address] [place] [phone] Appt Request Social History Tobacco Use Types Packs/Day Years Used Date Smoking Tobacco: Former Cigarettes 1 25 0 02/08/1956 - 02/07/1981 Passive Smoke Exposure: Past Smokeless Tobacco: Never Chew Quit: 03/03/1981 Passive Exposure Comments:No t for Years Alcohol Use Standard Drinks/Week Comments Yes 7 (1 standard drink = 0.6 oz pur e alcohol) [facility] Utilities Answer Date Recorded In the [...] you attend [facility] or yarsanism services? More than 4 times per year 06/09/2022 Do you belong to any clubs o r organizations such as episcopal groups, unions, fraternal or athletic groups, or [...] Answer Date Recorded PHQ-2 Score 0 09/21/2018 [facility] of Occupat ional Health - Occupational Stress [...] your living situation today? I have a [facility] place to live 06/22/2023 Education Answer Date Recorded What is the highest level of school you have completed or the highest degree you have received? 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 200 [place] [address] 10/06/2023 1:30 PM CDT Office Visit Department of Urology in [place], [place] [address] [place] [address] Wade Amanda M.D. [address] [place] [phone] 10/13/2023 8:30 AM CDT Procedure visit Department of Dermatology in [place], [place] [address] [place] [phone] Antolin Ibrahmi M.D. 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
--- NOTE | 2023-10-03 03:31 | CRLHL7_ITS ---
For Patients: As a result of the Cures Act, medical imaging exams and procedure reports are released immediately into your electronic medical record. You may view this report before your referring provider. If you have questions, please contact your health care provider. INDICATION: Fever cough and weakness TECHNIQUE: 1 view chest radiograph COMPARISON: 02/07/2022 FINDINGS: Devices: None. Lung volumes are moderate. No change in the appearance of the lungs compared to prior. Mild distortion throughout. No new focal opacities. Chronic bilateral pleural thickening versus pleural effusion. No pneumothorax. Heart size is similar to prior. 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 IMPRESSION: No acute thoracic findings. Dictated by Nelda Jackson MD @ 10/03/2023 4:35:23 AM (Electronically Signed)
[2023-10-03] MEDS: 0.9 % SODIUM CHLORIDE 1000 ml 1,000 ML IV (03:56)
[2023-10-03] MEDS: ACETAMINOPHEN 500 MG TABLET 1000 MG PO (03:57)
[2023-10-03 04:07] LABS: Lactate Sepsis w/Reflex* 0.8 mmol/L (0.5-1.9)
[2023-10-03 04:09] LABS: Basophils Percent Auto 0.2 % (0.0-3.0); Eosinophils Percent Auto 0.6 % (0.0-7.0); Hematocrit 43.4 % (37.0-53.0); Hemoglobin* 14.6 gm/dL (13.5-17.5); Immature Granulocytes Pct Auto 0.3 %; Lymphocytes Percent Auto 6.1 % (20-44); Mean Corpuscular HGB Conc 34 gm/dL (32-36); Mean Corpuscular Hemoglobin 32 pg (26-34); Mean Corpuscular Volume 95 fL (80-100); Monocytes Percent Auto 12.3 % (0.0-11.0); Neutrophils Percent Auto 80.5 % (42.0-72.0); Platelet Count* 132 K/uL (140-440); RDW Coefficient of Variation % 12.2 % (11.5-15.5); Red Blood Count 4.56 m/uL (4.30-5.90); White Blood Count* 12.55 K/uL (4.50-11.00)
[2023-10-03 04:13] LABS: Slide Review Reflex No
[2023-10-03 04:21] LABS: Chloride* 101 mmol/L (96-114); Potassium* 3.3 mmol/L (3.6-5.1); Sodium* 137 mmol/L (135-149)
[2023-10-03 04:24] LABS: Creatinine* 0.9 mg/dL (0.5-1.5); Est. Creatinine Clearance* 53.74; Estimated Glomerular Filt Rate 83 ml/min; INR 3.21 (0.91-1.10); Prothrombin Time 35.4 Seconds
[2023-10-03 04:25] LABS: Anion Gap 3 mEq/L (7-15); Blood Urea Nitrogen* 14 mg/dL (7-30); Calcium* 8.7 mg/dL (8.4-10.6); Carbon Dioxide* 33 mmol/L (20-32); Glucose* 115 mg/dL (60-115)
[2023-10-03 04:28] LABS: C Reactive Protein* 3.4 mg/dL (0.5-1.0)
[2023-10-03 04:42] LABS: Procalcitonin* 0.08 ng/mL (<0.50)
[2023-10-03 04:53] LABS: PCR FLU A Negative PCR FLU A (Negative); PCR FLU B Negative PCR FLU B (Negative); PCR RSV Negative PCR RSV (Negative); SARS PCR* POSITIVE SARS-CoV-2 (Negative)
[2023-10-03 05:07] LABS: TSH With Reflex to FT4* 0.424 uIU/mL (0.270-4.200)
--- NOTE | 2023-10-03 05:12 | ED.GENADULT ---
HPI - General Adult General Date Seen: 10/03/23 Chief complaint: Weakness Stated complaint: weakness Time Seen by Provider: 10/03/23 03:24 Source: patient, EMS, RN notes reviewed and old records reviewed Mode of arrival: EMS Limitations: no limitations History of Present Illness HPI narrative: Patient is an 88-year-old male who lives at home with his . He reports onset of cough and weakness earlier today. Noted to be febrile by ambulance, he was not aware of fevers at home. He does have a suprapubic catheter which was placed about 6 weeks ago, has not noted any significant changes in his urine. Has not had shaking chills, denies vomiting or diarrhea. No chest pain, no shortness of breath at this time. No specific ill exposures that he is aware of. He does not smoke or drink. Was too weak to get up tonight and so they called the ambulance. Related Data Home Medications ?Medication ?Instructions ?Recorded ?Confirmed atorvastatin 40 mg tablet 40 mg PO HS 08/28/21 09/16/21 fluticasone 113 mcg-salmeterol 14 1 inh inhalation BID 08/28/21 09/16/21 mcg/actuation breath activated powdr lisinopril 20 mg tablet 20 mg PO DAILY 08/28/21 09/16/21 metoprolol succinate 50 mg 75 mg PO DAILY 08/28/21 09/16/21 tablet,extended release 24 hr mirtazapine 7.5 mg tablet 7.5 mg PO HS 08/28/21 09/16/21 omeprazole 20 mg capsule,delayed 20 mg PO DAILY 08/28/21 09/16/21 release tamsulosin 0.4 mg capsule 0.8 mg PO DAILY 08/28/21 09/16/21 triamterene 37.5 1 cap PO DAILY 08/28/21 09/16/21 mg-hydrochlorothiazide 25 mg capsule warfarin 2 mg tablet 4 - 6 mg PO DAILY 08/28/21 09/16/21 Previous Rx's ?Medication ?Instructions ?Recorded atropine 1 % eye drops (Isopto 1 drp sublingual Q2H PRN excessive 09/04/21 Atropine) secretions #30 mL guaifenesin 100 mg/5 mL oral liquid 100 - 200 mg (5 - 10 mL) PO Q4H 09/04/21 PRN Cough #320 mL metronidazole 500 mg tablet 500 mg PO Q12H #10 tabs 09/04/21 Allergies Allergy/AdvReac Type Severity Reaction Status Date / Time codeine Allergy Mild Verified 05/11/22 09:09 Review of Systems Status of ROS: Reports: 10 or more systems reviewed and unremarkable except as noted in History and below [facility] Medical History History of vertigo (09/26/06) ?Z87.898 - Personal history of other specified conditions (ICD-10) History of poliomyelitis (02/06/09) ?Z86.12 - Personal history of poliomyelitis (ICD-10) History of pneumothorax (02/06/09) ?Z87.09 - Personal history of other diseases of the respiratory system (ICD-10) History of malignant neoplasm of skin (10/15/09) ?Z85.828 - Personal history of other malignant neoplasm of skin (ICD-10) History of diverticulitis (10/16/07) ?Z87.19 - Personal history of other diseases of the digestive system (ICD-10) History of deep venous thrombosis (06/05/12) ?Z86.718 - Personal history of other venous thrombosis and embolism (ICD-10) History of colonic polyps (09/2019) ?Z86.010 - Personal history of colonic polyps (ICD-10) Aspiration, chronic pulmonary ?T17.908A - Unspecified foreign body in respiratory tract, part unspecified causing other injury, initial encounter (ICD-10) Sublingual abscess ?K12.2 - Cellulitis and abscess of mouth (ICD-10) Trouble swallowing ?R13.10 - Dysphagia, unspecified (ICD-10) Anticoagulant long-term use ?Z79.01 - exterminator (current) use of anticoagulants (ICD-10) Neck abscess ?L02.11 - Cutaneous abscess of neck (ICD-10) Pneumothorax ?J93.9 - Pneumothorax, unspecified (ICD-10) COPD (chronic obstructive pulmonary disease) ?J44.9 - Chronic obstructive pulmonary disease, unspecified (ICD-10) Asbestosis ?J61 - Pneumoconiosis due to asbestos and other mineral fibers (ICD-10) History of prostate cancer ?Z85.46 - Personal history of malignant neoplasm of prostate (ICD-10) Insomnia ?G47.00 - Insomnia, unspecified (ICD-10) Paroxysmal atrial fibrillation ?I48.0 - Paroxysmal atrial fibrillation (ICD-10) Congestive heart failure ?I50.9 - Heart failure, unspecified (ICD-10) Hyperlipidemia ?E78.5 - Hyperlipidemia, unspecified (ICD-10) 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 - Presbycusis, unspecified ear (ICD-10) Hypertension ?I10 - Essential (primary) hypertension (ICD-10) ASCVD (arteriosclerotic cardiovascular disease) ?I25.10 - Atherosclerotic heart disease of [place] coronary artery without angina pectoris (ICD-10) Surgical History History of right inguinal hernia repair (02/06/09) ?Z98.890 - Other specified postprocedural states (ICD-10) ?Z87.19 - Personal history of other diseases of the digestive system (ICD-10) History of right coronary artery stent placement (03/06/18) ?Z95.5 - Presence of coronary angioplasty implant and graft (ICD-10) History of lumbar discectomy (06/14/12) ?Z98.890 - Other specified postprocedural states (ICD-10) History of colonoscopy (09/18/19) ?Z98.890 - Other specified postprocedural states (ICD-10) History of colonoscopy ?Z98.890 - Other specified postprocedural states (ICD-10) History of appendectomy ?Z90.49 - Acquired absence of other specified parts of digestive tract (ICD-10) History of laparoscopic cholecystectomy ?Z90.49 - Acquired absence of other specified parts of digestive tract (ICD-10) Hx of CABG ?Z95.1 - Presence of aortocoronary bypass graft (ICD-10) Social History Narrative: , six kids, retired, former smoker What is your current living situation?: I presently have a place to live Problems where you live: no known problems Problems where you live details: NA In the past 12 months, utilities in danger of being shut off: no In past 12 months, lack of transportation kept you from medical appts, meetings, work, or getting things needed for daily living: no In the past 12 mos, have been you worried that your food would run out before you had money to buy more?: never true In the past 12 mos, the food you bought just didn't last and you didn't have money to buy more?: never true Smoking Status: Never smoker Do you use any of these nicotine containing products: None Second hand tobacco smoke exposure: No How often do you have a drink containing alcohol: 4 or more times a week Alcohol type: beer Alcohol type details: 1 beer/day How many standard drinks containing alcohol do you have on a typical day: 1 or 2 How often do you have six or more drinks on one occasion: Never AUDIT-C Alcohol total score: 4 Non-prescribed substance use: denies use Caffeine: No How often does anyone, including family, friends and others, physically hurt you: never How often does anyone, including family, friends and others, insult or talk down to you: never How often does anyone, including family, friends and others, threaten you with harm: never How often does anyone, including family, friends and others, scream or curse at you: never service: Yes Exam Narrative: Exam Narrative: Vital signs as noted above. In general, an alert, well-appearing patient. Head: Normocephalic, atraumatic. Eyes: Pupils are equal reactive. Extraocular movements are full. Conjunctivae are normal. ENT: Mucous membranes are moist. Throat is normal. Neck: Supple without lymphadenopathy. Heart: Mildly tachycardic, regular. No significant murmur. Lungs: Scattered rhonchi, no wheezes. No increased work of breathing. Abdomen: Soft and nontender. Suprapubic catheter in place, urine looks clear, surrounding site without significant erythema or drainage. Extremities: Well perfused. No edema. No calf tenderness. Pulses intact. Neurologic: Patient is alert and oriented to person and place. Speech is fluent. Face is symmetric. Moves all extremities equally. Affect: Normal. Skin: Warm and dry. Well perfused. Const: Vital Signs, click to edit/add: Vital Signs - 24 hr 10/03/23 03:12 10/03/23 03:57 10/03/23 05:56 Temperature 100.9 F H 100.9 F H 99.7 F H Pulse Rate [Pulse Oximeter] 102 H Respiratory Rate 20 Blood Pressure [Ri ght Upper Arm] 149/73 H Pulse Oximetry 96 Oxygen Delivery Me thod Nasal Cannula Oxygen Flow Rate 2 10/03/23 05:57 Temperature 99.7 F H Pulse Rate [Pulse Oximeter] 92 Respiratory Rate 18 Blood Pressure [Ri t Upper Arm] 138/75 Pulse Oximetry 95 Oxygen Delivery Me thod Nasal Cannula Oxygen Flow Rate 3 Documenting provider has reviewed patient's vital signs: yes Course Course ED Course: Following initial evaluation, we placed an IV, will give some normal saline, labs are ordered including a single blood culture, CBC, electrolytes, LFTs, COVID, UA, lactate procalcitonin. Diagnostic considerations include viral infection such as COVID or other, pneumonia, sepsis related to pneumonia, UTI, other, among others. Lactate and procalcitonin were reassuring at 0.8 and 0.08 respectively. His white blood cell count was mildly elevated at 12 and half, hemoglobin of 14.6. Diff shows a mild left shift with 80% neutrophils and platelets are mildly depressed at 132,000. INR is slightly supratherapeutic at 3.2, he is on Coumadin presumably for his atrial arrhythmia. Electrolytes are notable for potassium 3.3, CO2 is 33, does have an underlying diagnosis of COPD. BUN is 14, creatinine 0.9. Blood sugar was normal, TSH is pending, COVID was positive. Chest x-ray by my review did not show any consolidation, final radiology read is unremarkable. Patient notes significant weakness and inability to function at home therefore will be admitted. With his underlying COPD diagnosis I will go ahead and give him some dexamethasone. UA is still pending at this time and that will need to be evaluated to make sure he does not have a superimposed urinary tract infection, but workup thus far is reassuring in terms of lack of significant findings to suggest sepsis. He was given Tylenol for fever. He was very minimally tachycardic on arrival but temperature was 101? at that point, vital signs need to be reassessed. Vital signs improved with fever relief, blood pressure 128/67, pulse 87, temperature 98.7?. We have not gotten a urine sample yet, this was relayed to the hospitalist. Patient given dexamethasone 6 mg IV. Stable for transfer to the floor. Vital Signs Vital signs: Initial Vital Signs Temperature 100.9 F H 10/03/23 03:12 Temperature Source Temporal Artery Scan 10/03/23 03:12 Pulse Rate 102 H 10/03/23 03:12 Respiratory Rate 20 10/03/23 03:12 Blood Pressure 149/73 H 10/03/23 03:12 Blood Pressure Mean 98 10/03/23 03:12 Blood Pressure Position Sitting 10/03/23 03:12 Pulse Oximetry 96 10/03/23 03:12 Oxygen Delivery Method Nasal Cannula 10/03/23 03:12 Oxygen Flow Rate 2 10/03/23 03:12 Vital Signs Temperature 100.9 F H 10/03/23 03:12 Pulse Rate 102 H 10/03/23 03:12 Respiratory Rate 20 10/03/23 03:12 Blood Pressure 149/73 H 10/03/23 03:12 Pulse Oximetry 96 10/03/23 03:12 Oxygen Delivery Method Nasal Cannula 10/03/23 03:12 Oxygen Flow Rate 2 10/03/23 03:12 Temperature 98.7 F 10/03/23 07:01 Pulse Rate 87 10/03/23 07:01 Respiratory Rate 20 10/03/23 07:01 Blood Pressure 128/67 10/03/23 07:01 Pulse Oximetry 96 10/03/23 07:01 Oxygen Delivery Method Nasal Cannula 10/03/23 07:01 Oxygen Flow Rate 2 10/03/23 07:01 Medications Administered Medications: Discontinued Medications Generic Name Dose Route Start Last Admin Trade Name Devinq PRN Reason Stop Dose Admin Acetaminophen 1,000 mg 10/03/23 03:30 10/03/23 03:57 Acetaminophen 500 Mg Tablet PO 10/03/23 03:31 1,000 mg ONCE ONE Administration Dexamethasone 6 mg 10/03/23 05:50 10/03/23 05:56 Dexamethasone 4 Mg/Ml Vial IV 10/03/23 05:51 6 mg ONCE ONE Administration Sodium Chloride 1,000 mls @ 1,000 mls/hr 10/03/23 03:30 10/03/23 03:56 0.9 % Sodium Chloride 1000 Ml IV 10/03/23 04:29 1,000 mls/hr .Q1H WAYNE Administration Medical Decision Making Lab Data Labs: Lab Results 10/03/23 10/03/23 10/03/23 Range/Units 03:31 03:55 04:00 WBC 12.55 H (4.50-11.00) K/uL RBC 4.56 (4.30-5.90) m/uL Hgb 14.6 (13.5-17.5) gm/dL Hct 43.4 (37.0-53.0) % MCV 95 (80-100) fL MCH 32 (26-34) pg MCHC 34 (32-36) gm/dL RDW Coeff of Betty 12.2 (11.5-15.5) % Plt Count 132 L (140-440) K/uL Neut % (Auto) 80.5 H (42.0-72.0) % Lymph % (Auto) 6.1 L (20-44) % [place] % (Auto) 12.3 H (0.0-11.0) % Eos % (Auto) 0.6 (0.0-7.0) % Baso % (Auto) 0.2 (0.0-3.0) % Neut # (Auto) 10.10 H (1.7-7.0) K/uL Lymph # (Auto) 0.80 L (0.90-2.90) K/uL [place] # (Auto) 1.50 H (0.00-0.90) K/UL Eos # (Auto) 0.10 (0.00-0.50) K/uL Baso # (Auto) 0.00 (0.00-0.30) K/uL Abs Immat Gran (auto) 0.00 (0.00-0.30) K/uL Imm/Tot Granulo (auto) 0.3 % INR 3.21 H (0.91-1.10) Sodium 137 (135-149) mmol/L Potassium 3.3 L (3.6-5.1) mmol/L Chloride 101 (96-114) mmol/L Carbon Dioxide 33 H (20-32) mmol/L Anion Gap 3 L (7-15) mEq/L BUN 14 (7-30) mg/dL Creatinine 0.9 (0.5-1.5) mg/dL Estimated Creat Clear 53.74 Estimated GFR 83 ml/min Glucose 115 (60-115) mg/dL Lactate 0.8 (0.5-1.9) mmol/L Calcium 8.7 (8.4-10.6) mg/dL C-Reactive Protein 3.4 H (0.5-1.0) mg/dL Procalcitonin 0.08 (<0.50) ng/mL TSH 0.424 (0.270-4.200) uIU/mL SARS-CoV-2 (PCR) POSITIVE SARS-CoV-2 A (Negative) Influenza Type A (PCR) Negative PCR FLU A (Negative) Influenza Type B (PCR) Negative PCR FLU B (Negative) RSV (PCR) Negative PCR RSV (Negative) Discharge Plan Discharge Clinical Impression: COVID, Weakness Patient Disposition: Admitted As Observation Condition: Stable
[2023-10-03] MEDS: dexAMETHasone 4 MG/ML VIAL 6 MG IV (05:56)
[2023-10-03 06:46] LABS: Appearance Urine Cloudy (Clear); Bilirubin Urine Negative (Negative); Blood Urine 1+ (Negative); Color Urine Yellow (Yellow); Glucose Urine Negative (Negative); Ketones Urine Negative (Negative); Leukocyte Esterase Urine 1+ (Negative); Nitrite Urine Positive (Negative); Protein Urine Negative (Negative); Urobilinogen Urine 0.2 (0.2-1.0)
[2023-10-03 06:57] LABS: Bacteria Urine Many; RBC Urine 0-2 (0-2); WBC Urine 0-2 (0-5)
[2023-10-03 06:58] LABS: Coarse Granular Casts Urine Many
[2023-10-03] MEDS: OMEPRAZOLE 20 MG CAPSULE DR PO (07:53)
[2023-10-03] MEDS: metroNIDAZOLE 500 MG TABLET PO (07:53)
[2023-10-03] MEDS: METOPROLOL SUCCINATE (XL) 50 MG TAB 75 MG PO (08:26)
[2023-10-03] MEDS: lisinopriL 20 MG TABLET PO (08:29)
--- NOTE | 2023-10-03 10:19 | PM.IMHP1 ---
Hospitalist- H&P: HPI History of Present Illness Date Seen: 10/03/23 Chief complaint: weakness Narrative: Peña Reddy is a 88 year old male past medical history significant for hypertension, hyperlipidemia, paroxysmal atrial fibrillation on chronic anticoagulation, CAD s/p RCA PCI (2019), HFpEF, COPD, ISAAC using CPAP, BPH is admitted to medical floor from the ED for profound weakness in setting of acute COVID infection. Patient reports onset of change in his voice, hoarseness Tuesday. Mild dry cough. Progressing to generalized weakness, telling me he was unable to stand out of his bed or then put his legs back into bed prior to arrival to the ED. denies headache or dizziness. Denies chest pain. Noted to be hypoxic at 88% on scene per EMS. Denies recent nausea vomiting or diarrhea. Febrile in the ED with a temp of 100.9?. In the ED, was started on dexamethasone and oxygen supplementation. CXR with acute findings. Mild leukocytosis with left shift. Carbon dioxide 33. 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 Nonsmoker. Drinks 1 beer daily. Request to be a full code however would not want to be on a vent. Review of Systems Narrative: REVIEW OF SYSTEMS: Complete review of systems performed and negative unless otherwise stated in HPI or below. [facility] Medical History Suprapubic catheter ?Z93.59 - Other cystostomy status (ICD-10) ISAAC (obstructive sleep apnea) ?G47.33 - Obstructive sleep apnea (adult) (pediatric) (ICD-10) History of vertigo (09/26/06) ?Z87.898 - Personal history of other specified conditions (ICD-10) History of poliomyelitis (02/06/09) ?Z86.12 - Personal history of poliomyelitis (ICD-10) History of pneumothorax (02/06/09) ?Z87.09 - Personal history of other diseases of the respiratory system (ICD-10) History of malignant neoplasm of skin (10/15/09) ?Z85.828 - Personal history of other malignant neoplasm of skin (ICD-10) History of diverticulitis (10/16/07) ?Z87.19 - Personal history of other diseases of the digestive system (ICD-10) History of deep venous thrombosis (06/05/12) ?Z86.718 - Personal history of other venous thrombosis and embolism (ICD-10) History of colonic polyps (09/2019) ?Z86.010 - Personal history of colonic polyps (ICD-10) Aspiration, chronic pulmonary ?T17.908A - Unspecified foreign body in respiratory tract, part unspecified causing other injury, initial encounter (ICD-10) Sublingual abscess ?K12.2 - Cellulitis and abscess of mouth (ICD-10) Trouble swallowing ?R13.10 - Dysphagia, unspecified (ICD-10) Anticoagulant long-term use ?Z79.01 - intermediate (current) use of anticoagulants (ICD-10) Neck abscess ?L02.11 - Cutaneous abscess of neck (ICD-10) Pneumothorax ?J93.9 - Pneumothorax, unspecified (ICD-10) COPD (chronic obstructive pulmonary disease) ?J44.9 - Chronic obstructive pulmonary disease, unspecified (ICD-10) Asbestosis ?J61 - Pneumoconiosis due to asbestos and other mineral fibers (ICD-10) History of prostate cancer ?Z85.46 - Personal history of malignant neoplasm of prostate (ICD-10) Insomnia ?G47.00 - Insomnia, unspecified (ICD-10) Paroxysmal atrial fibrillation ?I48.0 - Paroxysmal atrial fibrillation (ICD-10) Congestive heart failure ?I50.9 - Heart failure, unspecified (ICD-10) Hyperlipidemia ?E78.5 - Hyperlipidemia, unspecified (ICD-10) 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 coronary artery without angina pectoris (ICD-10) Surgical History History of right inguinal hernia repair (02/06/09) ?Z98.890 - Other specified postprocedural states (ICD-10) ?Z87.19 - Personal history of other diseases of the digestive system (ICD-10) History of right coronary artery stent placement (03/06/18) ?Z95.5 - Presence of coronary angioplasty implant and graft (ICD-10) History of lumbar discectomy (06/14/12) ?Z98.890 - Other specified postprocedural states (ICD-10) History of colonoscopy (09/18/19) ?Z98.890 - Other specified postprocedural states (ICD-10) History of colonoscopy ?Z98.890 - Other specified postprocedural states (ICD-10) History of appendectomy ?Z90.49 - Acquired absence of other specified parts of digestive tract (ICD-10) History of laparoscopic cholecystectomy ?Z90.49 - Acquired absence of other specified parts of digestive tract (ICD-10) Hx of CABG ?Z95.1 - Presence of aortocoronary bypass graft (ICD-10) Social History Narrative: , six kids, retired, former smoker What is your current living situation?: I presently have a place to live Problems where you live: no known problems Problems where you live details: NA In the past 12 months, utilities in danger of being shut off: no In past 12 months, lack of transportation kept you from medical appts, meetings, work, or getting things needed for daily living: no In the past 12 mos, have been you worried that your food would run out before you had money to buy more?: never true In the past 12 mos, the food you bought just didn't last and you didn't have money to buy more?: never true Smoking Status: Never smoker Do you use any of these nicotine containing products: None Second hand tobacco smoke exposure: No How often do you have a drink containing alcohol: 4 or more times a week Alcohol type: beer Alcohol type details: 1 beer/day How many standard drinks containing alcohol do you have on a typical day: 1 or 2 How often do you have six or more drinks on one occasion: Never AUDIT-C Alcohol total score: 4 Non-prescribed substance use: denies use Caffeine: No How often does anyone, including family, friends and others, physically hurt you: never How often does anyone, including family, friends and others, insult or talk down to you: never How often does anyone, including family, friends and others, threaten you with harm: never How often does anyone, including family, friends and others, scream or curse at you: never service: Yes Meds Home Medications and Allergies Home Medications ?Medication ?Instructions ?Recorded ?Confirmed ?Type atorvastatin 40 mg tablet 40 mg PO HS 08/28/21 10/03/23 History triamterene 37.5 1 cap PO DAILY 08/28/21 10/03/23 History mg-hydrochlorothiazide 25 mg capsule warfarin 2 mg tablet 4 - 6 mg PO DAILY 08/28/21 10/03/23 History losartan 50 mg tablet 50 mg PO DAILY 10/03/23 10/03/23 History metoprolol succinate 25 mg 25 mg PO DAILY 10/03/23 10/03/23 History tablet,extended release 24 hr nitroglycerin 0.4 mg sublingual 0.4 mg sublingual angina 10/03/23 History tablet Allergies Allergy/AdvReac Type Severity Reaction Status Date / Time codeine Allergy Mild Verified 05/11/22 09:09 Exam Narrative: Exam Narrative: PHYSICAL EXAM General: Very pleasant, conversant, NAD HEENT: Normocephalic, atraumatic, sclera white, EOMI, oral mucosa moist Cardiovascular: RRR, S1S2. No pitting edema Pulmonary: CTA bilaterally without rhonchi, rales, expiratory wheezes. No dyspnea on 2 L Abdominal: Soft, nondistended, NTTP Neurological: Alert, answering questions appropriately, cranial nerves intact, no focal findings Extremities: No gross joint deformity or swelling. AROMI. Neurovascularly intact Skin: Warm, dry. Const: Vital Signs, click to edit/add: Vital Signs - 24 hr 10/03/23 03:12 10/03/23 03:57 10/03/23 05:56 Temperature 100.9 F H 100.9 F H 99.7 F H Pulse Rate [Pulse Oximeter] 102 H Respiratory Rate 20 Blood Pressure [Le ft Radial Artery] Blood Pressure [Ri ght Upper Arm] 149/73 H Pulse Oximetry 96 Oxygen Delivery Me thod Nasal Cannula Oxygen Flow Rate 2 10/03/23 05:57 10/03/23 07:01 10/03/23 07:01 Temperature 99.7 F H 98.7 F Pulse Rate [Pulse Oximeter] 92 87 Respiratory Rate 18 20 20 Blood Pressure [Le ft Radial Artery] 128/67 Blood Pressure [Ri ght Upper Arm] 138/75 Pulse Oximetry 95 97 96 Oxygen Delivery Me thod Nasal Cannula Nasal Cannula Nasal Cannula Oxygen Flow Rate 3 3 2 10/03/23 08:00 Temperature 98.7 F Pulse Rate [Pulse Oximeter] 92 Respiratory Rate 16 Blood Pressure [Le ft Radial Artery] 135/78 Blood Pressure [Ri ght Upper Arm] Pulse Oximetry 96 Oxygen Delivery Me thod Nasal Cannula Oxygen Flow Rate 2 Hospitalist - H&P: Result Labs Labs: Short CBC 10/03/23 Range/Units 04:00 WBC 12.55 H (4.50-11.00) K/uL Hgb 14.6 (13.5-17.5) gm/dL Hct 43.4 (37.0-53.0) % Plt Count 132 L (140-440) K/uL BMP 10/03/23 04:00 Sodium 137 Potassium 3.3 L Chloride 101 Carbon Dioxide 33 H BUN 14 Creatinine 0.9 Glucose 115 Calcium 8.7 Urine 10/03/23 Range/Units 06:39 Urine Color Yellow (Yellow) Urine Appearance Cloudy A (Clear) Urine pH 7.0 (5.0-8.5) Ur Specific [place] 1.010 (1.000-1.030) Urine Protein Negative (Negative) Urine Glucose (UA) Negative (Negative) ECG Attestation: I personally reviewed and interpreted this ECG as follows: Interpretation: Sinus tachycardia, ventricular rate 107, QTC 448 Imaging Chest x-ray: Attestation: I have reviewed the pertinent imaging results. Radiologist's impression: Lung volumes are moderate. No change in the appearance of the lungs compared to prior. Mild distortion throughout. No new focal opacities. Chronic bilateral pleural thickening versus pleural effusion. No pneumothorax. Heart size is similar to prior. 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 IMPRESSION: No acute thoracic findings. Assessment and Plan Assessment and plan (1) COVID: Problem comment: Symptom onset Tuesday10/01/23 with hoarse voice, progressing to debilitating weakness 10/02, +PCR test 10/02 Oxygen saturation 88% on room air per EMS on scene Currently requiring 2 L per NC, continue to wean, maintaining saturations >88% in setting of COPD history Continue dexamethasone as initiated in ED Remdesivir initiated RT consult Symptomatic cares Status: Acute (2) Weakness: Problem comment: Generalized, inability to stand on his own, in setting of acute COVID infection PT/OT client services analyst for discharge planning/placement needs if necessary. Patient is beef killer for his with dementia in their own home Status: Acute (3) COPD (chronic obstructive pulmonary disease): Problem comment: Acutely requiring oxygen supplementation in setting of acute COVID infection, continue to wean as able RT for pulmonary support Status: Acute (4) Paroxysmal atrial fibrillation: Problem comment: On chronic anticoagulation Managed with metoprolol and warfarin Telemetry 10/02 received erroneous dose of 75 mg metoprolol, normal dose is 25 mg. Monitor pressure and heart rate INR 3.21, hold warfarin for tonight, pharmacy to manage Status: Acute (5) Congestive heart failure: Problem comment: HFpEF, preserved LV systolic function 09/2022 SPECT IMPRESSION 1. See separate report for EKG intrepretation. 2. Left ventricular cavity size was normal (resting EDV 93 ml). 3. Overall left ventricular systolic function was normal without wall motion abnormalities. The post stress LVEF was calculated to be 81 %. 4. Myocardial perfusion was normal. 5. There were no prior studies available for comparison. 08/2021 TTE Final Impressions: 1. Normal LV size, normal wall thickness, normal function with an estimated EF of 60 - 65%. 2. Right ventricular cavity size is normal, global systolic RV function is normal. 3. Mildly enlarged left atrium. 4. No significant valve disease detected. 5. Unable to estimate PA or central venous pressures. Followed by [facility] [place], most recent visit 09/02/2023 Status: Acute (6) Hyperlipidemia: Problem comment: Continue statin Status: Acute (7) Hypertension: Problem comment: Continue Cozaar, Dyazide Goal pressures <130/80 per cardiology Status: Acute (8) Hypokalemia: Problem comment: Acute on chronic recurrent. On Dyazide Potassium 3.3, replace with oral supplement and continue to monitor Status: Acute (9) ISAAC (obstructive sleep apnea): Problem comment: CPAP Status: Acute (10) Suprapubic catheter: Problem comment: In setting of BPH, history of prostate cancer s/p brachytherapy, urinary urge incontinence Status post suprapubic catheter placement August 24 at [facility]. Tube change scheduled for 10/05 in [place] (he will call to reschedule if necessary) Tamsulosin was discontinued Status: Acute (11) Benign prostatic hyperplasia: Problem comment: As above, s/p suprapubic catheter. Tamsulosin discontinued Status: Acute (12) Bacteriuria: Problem comment: UA with many bacteria, nitrites, 1+ LE, 0-2 WBC. UC pending Chronic suprapubic catheter in place Empirically start ceftriaxone, pending UC results - either discontinuing or managing with appropriate antibiotic as necessary Status: Acute Total Time Spent Total Time Spent: Total time spent caring for the patient today was 75 minutes. This includes time spent for the visit reviewing the chart, time spent during the visit, time spent after the visit and documentation and planning in coordination of care.
[2023-10-03] MEDS: POTASSIUM CHLORIDE 10 MEQ CAPSULE ER 40 MEQ PO (11:09)
[2023-10-03] MEDS: cefTRIAXone 1 GM in 0.9 % SODIUM CHLORIDE Mini-bag 100 ML IVPB (11:12)
--- NOTE | 2023-10-03 15:00 | PC.SOCIAL ---
Discharge planning: Spoke with pt today via phone. Pt states that he is feeling much better this afternoon from how he felt this morning when he first got to the hospital. Pt states that he plans to go home after his hospital stay and that he is needed at home to take care of his . Pt stated that his kids are staying with his right now while he is in the hospital. Social work to follow-up as needed.
[2023-10-03] MEDS: POTASSIUM CHLORIDE 10 MEQ CAPSULE ER 20 MEQ PO (17:43)
[2023-10-03] MEDS: 0.9 % SODIUM CHLORIDE 250 ml IV (17:43)
--- NOTE | 2023-10-03 19:02 | PC.NURSE ---
End of shift note (): Pt A&Ox3, pleasant, and cooperative. SBA. Pt ambulated throughout room during shift. Pt is on 1L 02 sitting in the low 90s. Suprapubic catheter is patent and draining. VSS. Denies H/N/V/CP.?Pt has chronic SOB due to his respiratory hx. Pt expressed no increased SOB present. LS bilateral crackles. Pt denies pain. Tolerating reg diet well.?No BM. Pt is resting with call light in reach. ?
[2023-10-03] MEDS: SODIUM CHLORIDE 0.9 % (FLUSH) 10 ML SYRINGE 5 ML IVF (20:25)
[2023-10-03] MEDS: ATORVASTATIN CALCIUM 40 MG TABLET PO (20:25)
[2023-10-03] MEDS: MELATONIN 3 MG TABLET PO (22:58)
[2023-10-04 00:10] VITALS: PULSE 64
[2023-10-04 02:54] VITALS: BP 127/68; PULSE 64; RESP 20; TEMP 36.5; O2SAT 98
--- NOTE | 2023-10-04 05:56 | PC.NURSE ---
Shift note: Pt independent in room with walker. Alert and oriented. Pt has been on 1L of oxygen throughout the night. No fever recorded. Suprapubic catheter in place and draining clear urine.
[2023-10-04 06:50] LABS: Chloride* 103 mmol/L (96-114); Sodium* 141 mmol/L (135-149)
[2023-10-04 06:53] LABS: Creatinine* 0.8 mg/dL (0.5-1.5); Est. Creatinine Clearance* 53.74; Estimated Glomerular Filt Rate 86 ml/min
[2023-10-04 06:54] LABS: Anion Gap 6 mEq/L (7-15); Blood Urea Nitrogen* 25 mg/dL (7-30); Carbon Dioxide* 32 mmol/L (20-32); Glucose* 109 mg/dL (60-115)
[2023-10-04 06:55] LABS: Calcium* 8.6 mg/dL (8.4-10.6); Hematocrit 44.5 % (37.0-53.0); Hemoglobin* 14.6 gm/dL (13.5-17.5); Mean Corpuscular HGB Conc 33 gm/dL (32-36); Mean Corpuscular Hemoglobin 32 pg (26-34); Mean Corpuscular Volume 96 fL (80-100); Platelet Count* 143 K/uL (140-440); Red Blood Count 4.64 m/uL (4.30-5.90); White Blood Count* 13.16 K/uL (4.50-11.00)
[2023-10-04 06:57] LABS: Slide Review Reflex No
[2023-10-04 07:00] VITALS: BP 129/70; PULSE 60; PULSE 65; RESP 16; TEMP 36.4; O2SAT 95
[2023-10-04 07:02] LABS: INR 2.88 (0.91-1.10); Prothrombin Time 32.4 Seconds
[2023-10-04] MEDS: POTASSIUM CHLORIDE 10 MEQ CAPSULE ER 20 MEQ PO (07:36)
[2023-10-04] MEDS: METOPROLOL SUCCINATE (XL) 25 MG TAB PO (09:09)
[2023-10-04] MEDS: TRIAMTERENE-HCTZ 37.5-25 MG TB 1 TAB PO (09:10)
[2023-10-04] MEDS: LOSARTAN POTASSIUM 50 MG TABLET PO (09:10)
[2023-10-04] MEDS: dexAMETHasone 4 MG/ML VIAL 6 MG IV (09:12)
[2023-10-04] MEDS: SODIUM CHLORIDE 0.9 % (FLUSH) 10 ML SYRINGE 5 ML IVF (09:12)
--- NOTE | 2023-10-04 09:30 | PM.DS1 ---
DS: Providers Provider Date Seen: 10/04/23 Date of admission: 10/03/23 08:00 Primary care physician: Lee Broderick MD Admitting Clinician: Jayme Le MD Consults: 10/03/23 07:15 Consult to Occupational Therapy [CONS] Routine Comment: Reason(s) for OT Consult:: Difficulty Managing ADLs Any Restrictions?:: No Restrictions Consult to Physical Therapy [CONS] Routine Comment: Reason(s) for PT Consult:: Evaluate Ambulation Any Restrictions?:: No Restrictions 10/03/23 10:32 Consult to Respiratory Therapy [CONS] Routine Comment: Reason(s) for RT Consult:: Consult Consult to Loading Rack Supervisor [CONS] Routine Comment: Reason for Consult:: Social Service Consult Attending Physician on discharge: Nadira Ballard [facility] Date of Discharge: 10/04/23 DS: Diagnosis Discharge Diagnosis (1) COVID: Status: Acute Problem details: Symptom onset Tuesday10/01/23 with hoarse voice, progressing to debilitating weakness 10/02, +PCR test 10/02 Oxygen saturation 88% on room air per EMS on scene Requiring 2 L per NC on admission, continue to wean, maintaining saturations >88% in setting of COPD history - weaned to room air prior to discharge Initiated on dexamethasone, discontinued prior to discharge as no longer requiring oxygen. Received 2 doses of remdesivir during hospital course. No further dosing required. RT consulted. (2) Weakness: Status: Acute Problem details: Generalized, inability to stand on his own, in setting of acute COVID infection PT/OT consulted, patient returning to baseline prior to discharge, completing ADLs independently. (3) COPD (chronic obstructive pulmonary disease): Status: Acute Problem details: Acutely requiring oxygen supplementation in setting of acute COVID infection, continue to wean as able - weaned to room air prior to discharge. RT for pulmonary support (4) Paroxysmal atrial fibrillation: Status: Acute Problem details: On chronic anticoagulation Managed with metoprolol and warfarin INR 2.88 on day of discharge, resuming home dosing. (5) Congestive heart failure: Status: Acute Problem details: HFpEF, preserved LV systolic function 09/2022 SPECT IMPRESSION 1. See separate report for EKG intrepretation. 2. Left ventricular cavity size was normal (resting EDV 93 ml). 3. Overall left ventricular systolic function was normal without wall motion abnormalities. The post stress LVEF was calculated to be 81 %. 4. Myocardial perfusion was normal. 5. There were no prior studies available for comparison. 08/2021 TTE Final Impressions: 1. Normal LV size, normal wall thickness, normal function with an estimated EF of 60 - 65%. 2. Right ventricular cavity size is normal, global systolic RV function is normal. 3. Mildly enlarged left atrium. 4. No significant valve disease detected. 5. Unable to estimate PA or central venous pressures. Followed by [facility] [place], most recent visit 09/02/2023 (6) Hyperlipidemia: Status: Acute Problem details: Continued statin (7) Hypertension: Status: Acute Problem details: Continued Cozaar, Dyazide Goal pressures <130/80 per cardiology (8) Hypokalemia: Status: Acute Problem details: Acute on chronic recurrent. On Dyazide Potassium 3.3, replace with oral supplement and continue to monitor - improved to 4.0 prior to discharge (9) ISAAC (obstructive sleep apnea): Status: Acute Problem details: CPAP (10) Suprapubic catheter: Status: Acute Problem details: In setting of BPH, history of prostate cancer s/p brachytherapy, urinary urge incontinence Status post suprapubic catheter placement August 24 at [facility]. Tube change scheduled for 10/05 in [place]. Son has rescheduled this for him. Tamsulosin was discontinued (11) Benign prostatic hyperplasia: Status: Acute Problem details: As above, s/p suprapubic catheter. Tamsulosin discontinued (12) Bacteriuria: Status: Acute Problem details: UA with many bacteria, nitrites, 1+ LE, 0-2 WBC. UC growing >100,000 g negative rods, pending at time of discharge. As patient has an indwelling suprapubic catheter which was supposed to be changed this week but may be delayed secondary to his active COVID infection, will continue him on Augmentin twice daily for 7 days. Received 2 doses of IV ceftriaxone during hospital course. DS: Summary Hospital Course Hospital Course: [age] year old male was admitted to the medical floor for profound weakness in setting of COVID, found to be hypoxic on the scene, requiring oxygen which was weaned to room air prior to discharge. Course of care and details as noted above. Remainder of chronic medical comorbidities were monitored and managed with home medications. Status at Discharge Functional status at discharge: independent ambulation Overall status at discharge: patient is back to baseline Time Spent with Patient Time attestation: Total time spent providing and/or coordinating discharge services: Time spent: Greater than 30 minutes Exam Narrative: Exam Narrative: PHYSICAL EXAM General: Pleasant, conversant, NAD Cardiovascular: RRR Pulmonary: No dyspnea Neurological: Alert, answering questions appropriately Skin: Warm, dry. Const: Vital Signs, click to edit/add: Vital Signs - 24 hr 10/03/23 10:32 10/03/23 10:32 10/03/23 11:00 Temperature 98 F Pulse Rate 71 Pulse Rate [Pulse Oximeter] 76 Respiratory Rate 18 18 Blood Pressure [Le ft Radial Artery] 110/67 Pulse Oximetry 93 93 Oxygen Delivery Me thod Nasal Cannula Nasal Cannula Oxygen Flow Rate 1 1 10/03/23 15:00 10/03/23 15:00 10/03/23 20:20 Temperature 97.9 F 97.7 F Pulse Rate Pulse Rate [Pulse Oximeter] 76 72 Respiratory Rate 16 20 Blood Pressure [Le ft Radial Artery] 116/65 118/61 Pulse Oximetry 93 93 95 Oxygen Delivery Me thod Nasal Cannula Nasal Cannula Oxygen Flow Rate 1 1 10/03/23 23:00 10/03/23 23:00 10/03/23 23:00 Temperature 97.6 F Pulse Rate Pulse Rate [Pulse Oximeter] 68 68 Respiratory Rate 20 20 Blood Pressure [Le ft Radial Artery] 122/71 Pulse Oximetry 95 95 Oxygen Delivery Me thod Nasal Cannula Oxygen Flow Rate 1 10/04/23 00:10 10/04/23 02:54 10/04/23 07:00 Temperature 97.7 F 97.6 F Pulse Rate 64 Pulse Rate [Pulse Oximeter] 64 65 Respiratory Rate 20 16 Blood Pressure [Le ft Radial Artery] 127/68 129/70 Pulse Oximetry 98 95 Oxygen Delivery Me thod Nasal Cannula Room Air Oxygen Flow Rate 1 10/04/23 07:00 10/04/23 07:00 Temperature Pulse Rate 60 Pulse Rate [Pulse Oximeter] Respiratory Rate Blood Pressure [Le ft Radial Artery] Pulse Oximetry 95 Oxygen Delivery Me thod Oxygen Flow Rate DS: Data Data Completed and Pending Completed studies during hospitalization: Procedures Labs on day of discharge: Labs from last 24 hours 10/04/23 06:10 WBC 13.16 H RBC 4.64 Hgb 14.6 Hct 44.5 MCV 96 MCH 32 MCHC 33 Plt Count 143 INR 2.88 H Sodium 141 Potassium 4.0 Chloride 103 Carbon Dioxide 32 Anion Gap 6 L BUN 25 Creatinine 0.8 Estimated Creat Clear 53.74 Estimated GFR 86 Glucose 109 Calcium 8.6 C-Reactive Protein 8.0 H Preliminary micro results at discharge 10/03/23 06:39 Urine Culture - Preliminary Urine,Clean Catch Gram negative dread 10/03/23 04:00 Blood Culture - Preliminary Blood NO GROWTH AFTER 24 HOURS Imaging Chest x-ray: Attestation: I have reviewed the pertinent imaging results. Radiologist's impression: Lung volumes are moderate. No change in the appearance of the lungs compared to prior. Mild distortion throughout. No new focal opacities. Chronic bilateral pleural thickening versus pleural effusion. No pneumothorax. Heart size is similar to prior. 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 IMPRESSION: No acute thoracic findings. Discharge Plan Discharge Disposition: Home, Self-Care Date of Admission: 10/03/23 08:00 Attending Provider on Discharge: Nadira Ballard Primary Care Provider: Lee Broderick Condition: Stable Anticipated Discharge Date/Time: 10/04/23 12:00 Discharge Medications: New amoxicillin-pot clavulanate 875-125 mg tablet 1 tab PO BID Qty: 14 0RF Continued losartan 50 mg tablet 50 mg PO DAILY metoprolol succinate 25 mg tablet extended release 24 hr 25 mg PO DAILY nitroglycerin 0.4 mg tablet, sublingual 0.4 mg sublingual atorvastatin 40 mg tablet 40 mg PO HS triamterene-hydrochlorothiazid 37.5-25 mg capsule 1 cap PO DAILY Patient Comments: TAKE 1 CAPSULE BY MOUTH EVERY MORNING warfarin 2 mg tablet 4 - 6 mg PO DAILY Rx Instructions: 6 MG ON TUESDAY AND 4 MG OTHER DAYS OR DIRECTED Discharge Orders: Discharge Order (Routine); Ordered 10/04/23 Ordered By: Nadira Ballard Patient Education: Amoxicillin/Clavulanate Potassium (By mouth), Urinalysis (GEN), COVID-19 (Coronavirus Disease 2019) (GEN) Additional Instructions: Continue to quarantine, stay hydrated. Your urinalysis was abnormal. Your urine culture is growing >100,000 Gram-negative rods and is pending at time of discharge. Take Augmentin twice daily and follow-up for your catheter change as has been rescheduled. Activity Level: Activity as Tolerated Discharge Diet: Regular Follow Up Appointments: Lee Broderick MD [Primary Care Provider] - (Post hospital follow-up 7-10 days) Lindsey Razo MD [Staff Physician] - 10/14/23 2:15 pm ([facility] for follow-up. Please go to [address], and please wear a mask if you still have Covid.) Forms: [employer] Info Instructions
[2023-10-04] MEDS: cefTRIAXone 1 GM in 0.9 % SODIUM CHLORIDE Mini-bag 100 ML IVPB (09:49)
[2023-10-04 10:02] VITALS: BP 114/58; PULSE 66; RESP 18; TEMP 36.5; O2SAT 96
--- NOTE | 2023-10-04 10:57 | PC.SOCIAL ---
Discharge planning: wool batting worker talked with pt today via phone. 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 wool batting worker talked to pt about Admin Dir Care agencies as an option and pt was interested in those agencies. wool batting worker printed a Admin Dir Care agency resource list and asked pt's nurse to give it to pt due to this worker not being able to go into pt's room with his current COVID positive diagnosis. Pt was thankful for the assistance and the information. Social work to follow-up as needed.
--- NOTE | 2023-10-04 12:52 | PC.NURSE ---
Pt discharged @ 1215 via wheelchair. Friend came to pick Pt up and brought back to home. Discharge and belonging forms signed.
== END 2023-10-04 12:15 | disposition home or self-care (01) | DRG 177 ==
LOC: ED 05:19 → MEDSURG 06:38
PROVIDERS: Physician Assistant; Admitting Provider Student in an Organized Health Care Education/Training Program; Emergency Provider Emergency Medicine; PCP Family Medicine; Visit Provider Family Medicine
DX: U07.1 COVID-19 (principal); I50.31 Acute diastolic (congestive) heart failure; T83.510A Infection and inflammatory reaction due to cystostomy catheter, initial encounter; N39.0 Urinary tract infection, site not specified; B96.4 Proteus (mirabilis) (morganii) as the cause of diseases classified elsewhere; I11.0 Hypertensive heart disease with heart failure; E87.6 Hypokalemia; G47.33 Obstructive sleep apnea (adult) (pediatric); Z99.89 Dependence on other enabling machines and devices; J44.9 Chronic obstructive pulmonary disease, unspecified; I48.0 Paroxysmal atrial fibrillation; Z93.59 Other cystostomy status; N40.1 Benign prostatic hyperplasia with lower urinary tract symptoms; N39.41 Urge incontinence; Z95.5 Presence of coronary angioplasty implant and graft; Z86.718 Personal history of other venous thrombosis and embolism; Z86.12 Personal history of poliomyelitis; Z86.010 Personal history of colon polyps; Z79.01 Long term (current) use of anticoagulants; G47.00 Insomnia, unspecified; I25.10 Atherosclerotic heart disease of native coronary artery without angina pectoris; Z95.1 Presence of aortocoronary bypass graft; E78.5 Hyperlipidemia, unspecified; Z85.828 Personal history of other malignant neoplasm of skin; Z85.46 Personal history of malignant neoplasm of prostate
CPT/HCPCS: 36415; 71045; 80048; 81001; 83605; 84145; 84443; 84484; 85025; 85027; 85610; 86140; 87040; 87086; 87186; 87631; 93005; 94761; 97116; 97162; 97165; 97530; 97535; 99284; 99285; A9270; J0696; J1100; J7030; J7050

== ENCOUNTER 2023-11-03 20:50 | Emergency (ER) | payer MEDICARE, BC, SELFPAY ==
[2023-11-03 21:31] VITALS: BP 134/79; PULSE 99; RESP 16; TEMP 36.4; O2SAT 98; BMI 28.7
--- NOTE | 2023-11-03 21:38 | ED_ITS ---
HPI - Male Genitourinary General Time Seen by Provider: 21:38 Date Seen: 11/03/23 Chief complaint: Urogenital Problems, Male Stated complaint: Plugged catheter Time Seen by Provider: 11/03/23 21:38 Source: patient, RN notes reviewed and old records reviewed Mode of arrival: ambulatory Limitations: no limitations History of Present Illness HPI Narrative: Dav is a very pleasant 88-year-old male with history of suprapubic catheter, restrictive lung disease, known coronary artery disease who comes to the emergency room for evaluation regarding a plugged catheter. He has had a suprapubic catheter for some time and last catheter change was 1 month ago. He is actually due for the next catheter change in 1 week. Unfortunately he has not had any urinary drainage since 1400 hours today. He does note his belly seems to be bag urine he is feeling a lot of pressure. He denies any cough congestion fever chills. Related Data Home Medications ?Medication ?Instructions ?Recorded ?Confirmed atorvastatin 40 mg tablet 40 mg PO HS 08/28/21 10/03/23 triamterene 37.5 1 cap PO DAILY 08/28/21 10/03/23 mg-hydrochlorothiazide 25 mg capsule warfarin 2 mg tablet 4 - 6 mg PO DAILY 08/28/21 10/03/23 losartan 50 mg tablet 50 mg PO DAILY 10/03/23 10/03/23 metoprolol succinate 25 mg 25 mg PO DAILY 10/03/23 10/03/23 tablet,extended release 24 hr nitroglycerin 0.4 mg sublingual 0.4 mg sublingual angina 10/03/23 tablet Previous Rx's ?Medication ?Instructions ?Recorded amoxicillin 875 mg-potassium 1 tab PO BID #14 tabs 10/04/23 clavulanate 125 mg tablet Allergies Allergy/AdvReac Type Severity Reaction Status Date / Time codeine Allergy Mild Verified 05/11/22 09:09 Review of Systems Status of ROS: Reports: 6 or more systems reviewed and unremarkable except as noted in History and below [facility] Medical History Suprapubic catheter ?Z93.59 - Other cystostomy status (ICD-10) ISAAC (obstructive sleep apnea) ?G47.33 - Obstructive sleep apnea (adult) (pediatric) (ICD-10) History of vertigo (09/26/06) ?Z87.898 - Personal history of other specified conditions (ICD-10) History of poliomyelitis (02/06/09) ?Z86.12 - Personal history of poliomyelitis (ICD-10) History of pneumothorax (02/06/09) ?Z87.09 - Personal history of other diseases of the respiratory system (ICD- 10) History of malignant neoplasm of skin (10/15/09) ?Z85.828 - Personal history of other malignant neoplasm of skin (ICD-10) History of diverticulitis (10/16/07) ?Z87.19 - Personal history of other diseases of the digestive system (ICD-10) History of deep venous thrombosis (06/05/12) ?Z86.718 - Personal history of other venous thrombosis and embolism (ICD-10) History of colonic polyps (09/2019) ?Z86.010 - Personal history of colonic polyps (ICD-10) Aspiration, chronic pulmonary ?T17.908A - Unspecified foreign body in respiratory tract, part unspecified causing other injury, initial encounter (ICD-10) Sublingual abscess ?K12.2 - Cellulitis and abscess of mouth (ICD-10) Trouble swallowing ?R13.10 - Dysphagia, unspecified (ICD-10) Anticoagulant long-term use ?Z79.01 - 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) use of anticoagulants (ICD-10) Neck abscess ?L02.11 - Cutaneous abscess of neck (ICD-10) Pneumothorax ?J93.9 - Pneumothorax, unspecified (ICD-10) COPD (chronic obstructive pulmonary disease) ?J44.9 - Chronic obstructive pulmonary disease, unspecified (ICD-10) Asbestosis ?J61 - Pneumoconiosis due to asbestos and other mineral fibers (ICD-10) History of prostate cancer ?Z85.46 - Personal history of malignant neoplasm of prostate (ICD-10) Insomnia ?G47.00 - Insomnia, unspecified (ICD-10) Paroxysmal atrial fibrillation ?I48.0 - Paroxysmal atrial fibrillation (ICD-10) Congestive heart failure ?I50.9 - Heart failure, unspecified (ICD-10) Hyperlipidemia ?E78.5 - Hyperlipidemia, unspecified (ICD-10) 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 - Presbycusis, unspecified ear (ICD-10) Hypertension ?I10 - Essential (primary) hypertension (ICD-10) ASCVD (arteriosclerotic cardiovascular disease) ?I25.10 - Atherosclerotic heart disease of nome coronary artery without angina pectoris (ICD-10) Surgical History History of right inguinal hernia repair (02/06/09) ?Z98.890 - Other specified postprocedural states (ICD-10) ?Z87.19 - Personal history of other diseases of the digestive system (ICD-10) History of right coronary artery stent placement (03/06/18) ?Z95.5 - Presence of coronary angioplasty implant and graft (ICD-10) History of lumbar discectomy (06/14/12) ?Z98.890 - Other specified postprocedural states (ICD-10) History of colonoscopy (09/18/19) ?Z98.890 - Other specified postprocedural states (ICD-10) History of colonoscopy ?Z98.890 - Other specified postprocedural states (ICD-10) History of appendectomy ?Z90.49 - Acquired absence of other specified parts of digestive tract (ICD- 10) History of laparoscopic cholecystectomy ?Z90.49 - Acquired absence of other specified parts of digestive tract (ICD-1 0) Hx of CABG ?Z95.1 - Presence of aortocoronary bypass graft (ICD-10) Social History Narrative: , six kids, retired, former smoker What is your current living situation?: I presently have a place to live Problems where you live: no known problems Problems where you live details: NA In the past 12 months, utilities in danger of being shut off: no In past 12 months, lack of transportation kept you from medical appts, meetings, work, or getting things needed for daily living: no In the past 12 mos, have been you worried that your food would run out before you had money to buy more?: never true In the past 12 mos, the food you bought just didn't last and you didn't have money to buy more?: never true Smoking Status: Never smoker Do you use any of these nicotine containing products: None Second hand tobacco smoke exposure: No How often do you have a drink containing alcohol: 4 or more times a week Alcohol type: beer Alcohol type details: 1 beer/day How many standard drinks containing alcohol do you have on a typical day: 1 or 2 How often do you have six or more drinks on one occasion: Never AUDIT-C Alcohol total score: 4 Non-prescribed substance use: denies use Caffeine: No How often does anyone, including family, friends and others, physically hurt you : never How often does anyone, including family, friends and others, insult or talk down to you: never How often does anyone, including family, friends and others, threaten you with harm: never How often does anyone, including family, friends and others, scream or curse at you: never service: Yes Exam Narrative: Exam Narrative: Alert and oriented. No acute distress. No respiratory difficulty. Abdomen is protuberant. Firm. Catheter is without significant erythema around the skin. Const: Vital Signs, click to edit/add: Vital Signs - 24 hr 11/03/23 21:31 Temperature 97.6 F Pulse Rate [Pulse Oximeter] 99 Respiratory Rate 16 Blood Pressure [Ri ght Upper Arm] 134/79 Pulse Oximetry 98 Oxygen Delivery Me thod Room Air Documenting provider has reviewed patient's vital signs: yes Course Course ED Course: Plan is to try to troubleshoot and preserve current catheter. Because if it does not work will replace catheter. Vital Signs Vital signs: Initial Vital Signs Temperature 97.6 F 11/03/23 21:31 Temperature Source Oral 11/03/23 21:31 Pulse Rate 99 11/03/23 21:31 Respiratory Rate 16 11/03/23 21:31 Blood Pressure 134/79 11/03/23 21:31 Blood Pressure Mean 97 11/03/23 21:31 Blood Pressure Position Sitting 11/03/23 21:31 Pulse Oximetry 98 11/03/23 21:31 Oxygen Delivery Method Room Air 11/03/23 21:31 Vital Signs Temperature 97.6 F 11/03/23 21:31 Pulse Rate 99 11/03/23 21:31 Respiratory Rate 16 11/03/23 21:31 Blood Pressure 134/79 11/03/23 21:31 Pulse Oximetry 98 11/03/23 21:31 Oxygen Delivery Method Room Air 11/03/23 21:31 Temperature 97.6 F 11/03/23 21:31 Pulse Rate 99 11/03/23 21:31 Respiratory Rate 16 11/03/23 21:31 Blood Pressure 134/79 11/03/23 21:31 Pulse Oximetry 98 11/03/23 21:31 Oxygen Delivery Method Room Air 11/03/23 21:31 MDM - Male Genitourinary MDM Narrative Medical decision making narrative: 1. Catheter malfunction-nursing attempted flushing of the catheter but was unsuccessful in clearing the obstruction. Therefore we prepped this area with Betadine remove the catheter and placed a 16 in catheter without difficulty. Urine was clear and drained without difficulty. Urinalysis was done. It did show rbc's 50-100 wbc's greater than 103+ leukocyte esterase. Patient has had chronic indwelling catheter and therefore it is challenging to know if this is true infection. Patient has no fevers chills at this time. Denies any body aches. We will wait on the urine culture to determine if treatment is necessary. 2. Disposition- home at this time. Return for worsening symptoms. Medical Records Attestation: I reviewed the patient's medical records. Lab Data Attestation: I reviewed the patient's lab results. Labs: Lab Results 11/03/23 Range/Units 22:10 Urine Color Yellow (Yellow) Urine Appearance Cloudy A (Clear) Urine pH 7.5 (5.0-8.5) Ur Specific [place] 1.015 (1.000-1.030) Urine Protein Trace A (Negative) Urine Glucose (UA) Negative (Negative) Urine Ketones Negative (Negative) Urine Blood 3+ A (Negative) Urine Nitrite Positive A (Negative) Urine Bilirubin Negative (Negative) Urine Urobilinogen 0.2 (0.2-1.0) Ur Leukocyte Esterase 3+ A (Negative) Urine RBC 50-100 A (0-2) Urine WBC >100 A (0-5) Ur Squamous Epith Cells None (None-Few) Urine Bacteria Many A (None) Discharge Plan Discharge Clinical Impression: Malfunction of indwelling urinary catheter Qualifiers: Encounter type: initial encounter Qualified Code(s): T83.011A - Breakdown (mechanical) of indwelling urethral catheter, initial encounter Patient Disposition: Home, Self-Care Condition: Improved Additional Instructions: Drink plenty of fluids to keep they urine dilute and flowing freely. Seek medical attention for fever or body aches suggesting a bladder infection. Urinalysis and urine culture are pending. Return to the emergency room as needed. Prescriptions: No Action losartan 50 mg tablet 50 mg PO DAILY metoprolol succinate 25 mg tablet extended release 24 hr 25 mg PO DAILY nitroglycerin 0.4 mg tablet, sublingual 0.4 mg sublingual amoxicillin-pot clavulanate 875-125 mg tablet 1 tab PO BID Qty: 14 0RF atorvastatin 40 mg tablet 40 mg PO HS triamterene-hydrochlorothiazid 37.5-25 mg capsule 1 cap PO DAILY Patient Comments: TAKE 1 CAPSULE BY MOUTH EVERY MORNING warfarin 2 mg tablet 4 - 6 mg PO DAILY Rx Instructions: 6 MG ON TUESDAY AND 4 MG OTHER DAYS OR DIRECTED Follow Up/Referrals: Lee Broderick MD [Primary Care Provider] - Stand Alone Forms: [facility] Info Instructions Procedures Catheter Insertion (Urinary) Date of insertion: 11/04/23 Reason for placing indwelling catheter: Urinary obstruction Antiseptic solution prep: Povidone-Iodine Topical anesthesia used: No Catheter type/location: Suprapubic Size (Slovak): 16
--- OUTSIDE RECORDS SUMMARY | 2023-11-03 22:18 | XMS_ITS | Continuity of Care Document ---
Author Organization [facility] Address [address] [address] [place] [address] Phone Care Team Providers Care Act English Tutor Name Role Phone Vivian Jones MD Unavailable Unavailable Procedures Procedure Date Init Inpt Cons New/estab Mod 5 08 Advance Directives Directive Yes / No Effective Date File Name No Information Encounters Encounter Description Practice Location Reason(s) For Visit Diagnoses Date Provider Providers Copied on Encounter Init Inpt Cons New/estab Mod 5 [facility] [place], [address] [address], [place], [place], [address], [place] tel:[phone] [facility] No Information [address] [facility], [facility] [address], [place], [place], [address] , [place]. tel:[phone] Referring Provider: Mendez Benites MD , [address], [place], [address]. tel:[phone] Family History Family Member Type Diagnosis Age At Onset No Information Payers Payer name Insurance type Covered green party ID Sujey gilbert(s) [facility] [id number] Social History Type Description Quantity Date Captured [...]
--- OUTSIDE RECORDS SUMMARY | 2023-11-03 22:18 | XMS_ITS | Continuity of Care Document ---
Author Organization [facility] Address [address] [address] Phone Care Team Providers Care Veterinarian Epidemiologist Name Role Phone Will Dilip CASTELLANOS Unavailable [...] Drug Urine Toxology With Chromatography OFFICE/OUTPATIENT VISIT, [facility] PT-FOCUSED HLTH RISK ASSMT Advance Directives Directive Yes / No Effective Date File Name No Information Encounters Encounter Description Practice Location Reason(s) For Visit Diagnoses Date Provider Providers Copied on Encounter [facility], [address] [place], [address], [place] tel:[phone] [facility] No Information 2 Ren Cherry. [address] [place], [place], [address] , [place]. tel:[phone] OFFICE/OUTPAT IENT VISIT, [facility], [address] [place], [address], [place] tel:[phone] [facility] Back Pain (chief complaint) Chronic pain syndromeOther intervertebral disc degeneration, lumbar regionRadiculopa thy, lumbar regionOther cervical disc degeneration, unsp cervical regionRadiculopa thy, cervical regionEncounter for therapeutic drug level monitoringLong term (current) use of opiate analgesic 0 Clayton Aponte. [address] [facility] [address], [place], [place], [address] , [place]. tel:[phone] Referring Provider: Hitesh Akbar [facility] [address] [facility] [address], [place], [address]. tel:[phone] [facility], [address] [place], [place], [address], [place] tel:[phone] [facility] No Information 0 Clayton Aponte. [address] [facility] [address], [place], [place], [address] , [place]. [phone] Family History Family Member Type Diagnosis Age At Onset No Information Payers Payer name Insurance type Covered democrat ID Authoriza tipatricia(s) [facility] Medicare Replacement 16 [id number] Social History Type Description Quantity Date Captured [...] ISIS. He has completed an MRI at [facility] this February. His is present today and contributed to today's OV.Treatment Tried:ibuprofen, Tylenol - [place] helpfulESI [place] - not helpfulLumbar RFA at [facility] in 2018 - he does not [...]
--- OUTSIDE RECORDS SUMMARY | 2023-11-03 22:18 | XMS_ITS | Continuity of Care Document ---
Author Name [facility] Organization [facility] Care Team Providers Care Body Liner Name Role Phone [facility] Unavailable Unavailable Problems Combined list of problems from Department of Defense and [facility] facilities. It does not include entries that were removed or entered in error. Problem Status Onset Date Problem Type Date of Resolution Comments Source Diagnosis: ICD-10-CM H90.3 Sensorineural hearing loss, bilateral Active Diagnosis [facility] Diagnosis: ICD-10-CM Z46.1 Encounter for fitting and adjustment of hearing aid Active Diagnosis 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 2) Encounters from the Department of [facility] facilities going back up to 280 months. Location Location Details Encounter Type Encounter Number Reason For Visit Attending Provider ADM Date DC Date Status Disposition Source [facility] Outpatient Encounter [id number] 06/19 [facility] HEARING AID EXAM BOTH EARS [id number] Diagnos is: ICD-10- CM Z01.118 Encntr for exam of ears and hearing w oth abnorma l finding s
CHAYITO NORIEGA OL T 07/11 [facility] IS [facility] CONFORMITY EVALUATION [id number] Diagnos is: ICD-10- CM Z46.1 Encount er for fitting and adjustm ent of hearing aid<br/ > PEREZ HAIDER 08/15 [facility] HEARING AID FITTING/CH ECKING [id number] Diagnos is: ICD-10- CM H90.3 Sensori neural hearing loss, bilater al
ERNIE DOMÍNGUEZ F 10/19 [facility]
--- OUTSIDE RECORDS SUMMARY | 2023-11-03 22:18 | XMS_ITS | Encounter Summary ---
Author Name [facility] ([place]) Organization [facility] ([place]) Address [address] [place] [address] Insurance Providers: All historical and current Section [...] Name Patient's Relationship to Policy [employer] [employer] [facility] (WNR) MEDICARE ADVANTAGE MCR (WNR) Feb 07, 2010 [id number] [phone] ZAN MILAN PATIENT Selected Encounter This section includes the information on record at [place] for the Encounter. Date/Time Encounter Type Encounter Description Reason Provider Source Aug 16, 2023 08:45 AM CONFORMITY EVALUATION AUDIOLOGY ICD-10-CM Z46.1 Encounter for fitting and adjustment of hearing aid ANGELIA HAIDER Brittani Encounter Template Text not used by [place] Assessments - Encounter Diagnoses This section includes the primary and secondary diagnoses documented for the Encounter. Date/Time Primary/Secondary Diagnosis Diagnosis Name Provider Source Aug 16, 2023 09:02 AM PRIMARY Encounter for fitting and adjustment of hearing aid PERRY HAIDER [facility] Aug 16, 2023 09:02 AM SECONDARY Sensorineural hearing loss, bilateral PERRY HAIDER [facility] Plan of Treatment: Future Appointments (+ 6 months) and Future Tests (+/- 45 days) The Plan of Treatment section includes future care activities for the patient from all [place] treatmentfacilities. This section includes future appointments and future orders which are active, pending or scheduled. Future Appointments This section includes appointments that were scheduled to occur 6 months from the date of the Encounter, up to a maximum of 20 appointments. The data comes from all [place] treatment facilities. Appointment Date/Time Appointment Type Appointme nt Facility Name Oct 20, 2023 10:30 AM AMBULATORY - SURGERY [facility] Encounter Notes: All associated encounter notes [...] OTOSCOPY: Bilaterally: Free of excessive cerumen. HISTORY: Hunters has never used hearing aids previously. NEW HEARING AIDS ISSUED TODAY: Make: Phonak ([employer]) Model: Audeo L90 Style: HALI-RL R Serial Numbers R/L: [id number]/ [id number] Housekeeping Supervisor Hotel/Slim Tube Size: 2M Dome/Earmold: cshells Wax Guards: Cerustop ACTION: FITTING/VERIFICATION------ Hearing aids were a good physical fit. Feedback test was completed and feedback air conditioning manager was activated. Hearing aids were programmed [...] were verified. Indicator tones were demonstrated for . ORIENTATION----- was counseled/oriented to the following: -Full-time hearing aid use and acclimating to amplification -Realistic expectations for hearing aid use -Appropriate communication strategies -How to charge the hearing aids -Location and operation of all controls -Proper care and maintenance -Protecting hearing in high noise levels -[facility] and Call Center contact information and services, including the trial period. Hunters reported good sound quality and equal balance between ears after adjustments were made. Hunters reported a comfortable fit in both ears. Hunters demonstrated understanding of the new aids and was able to insert the hearing aids appropriately, as well as manipulate the volume control and battery charging unit. Prognosis for success is good, given the Veterans response to the hearing aids. Hearing aids were issued and batteries and supplies were mailed. was provided with a copy of [place] issuance form [id number]. PLAN: - will be scheduled for a 2 month Follow up in [place]. Patient is in agreement with this plan. /bessie/ Ar Li Chief, Audiology Signed: 09/13/2023 13:56 JAQUI HAIDER [facility]
--- OUTSIDE RECORDS SUMMARY | 2023-11-03 22:18 | XMS_ITS | Clinical Summary ---
Author Organization [employer] [facility] Address [place], [place] [address] Care Team Providers Care Transit Coach Operator Name Role Phone Vira Polanco AuD Unavailable Lee Broderick MD Primary Care Provider Allergies [...] day in the evening OR as directed 11/03/2023 Active warfarin (COUMADIN) 2 mg tabletIndications: Paroxysmal A-fib (HC),Anticoagulati on monitoring, INR range 2-3 Take by mouth 4 mg (2 mg x 2) every day 182 Tablet 09/12/2023 4 Discontinue d(Reorder (E-cancel not sent)) warfarin (COUMADIN) 2 mg tabletIndications: Paroxysmal A-fib (HC),Anticoagulati on monitoring, INR range 2-3 Take by mouth 10/14: Hold; 10/15: Hold; Otherwise 4 mg every day in the evening OR as directed 10/15/2023 4 Discontinue d(Reorder (E-cancel not sent)) warfarin (COUMADIN) 2 mg tabletIndications: Paroxysmal A-fib (HC),Anticoagulati on monitoring, INR range 2-3 Take by mouth 10/21: Hold; 10/22: Hold; Otherwise 4 mg every day in the evening OR as directed 10/21/2023 4 Discontinue d(Reorder (E-cancel not sent)) Active Problems Problem Noted Date Diagnosed Date Suprapubic catheter placed 08/25/23 [place] 09/02/19 24 Prostate cancer 02/21/2023 Asbestosis 07/22/2021 Chronic obstructive pulmonary disease 06/09/2021 Restrictive lung disease 06/09/2021 CAD in [place] artery: JANEY to RCA 2018. 2 Anticoagulation monitoring, INR range 2-3 2020 Right SI joint fusion 02/04/2017 Primary osteoarthritis of right hip 10/31/2015 L3-4 disk herniation 05/18/2013 Sensorineural hearing loss, asymmetrical 013 Hip pain with paralabral cyst 07/12/2012 Lower urinary tract symptoms (LUTS) 06/14/2012 Personal history of malignant neoplasm of prosta te 07/14/2006 Overview (10/20/2007): S/p radioactive seed implants ~ 6 yrs ago Personal history of peptic ulcer disease 007 Unspecified Essential Hypertension Hyperlipidemia LDL goal < 100 Heart failure with preserved ejection fraction Insomnia Paroxysmal A-fib Overview (08/12/2020): by 48 hour holter 07/2020 Resolved Problems Problem Noted Date Diagnosed Date Resolved Date Lumbar radicular pain 11/07/20142020 DDD (degenerative disc disease), lumbar 06/14/2012 07/29/2020 Inguinal hernia without ment ion of obstruction or gangrene, unilateral or unspecified, (not specified as recurrent) 10/20/2007 05/22/2008 Bacteremia 10/20/2007 05/22/2008 Overview (10/20/2007): 1 bottle pos for MSSA Bilat SPONTANEOUS PNEUMOTHORAX OTHER 07/14/2006 08/27/2022 Overview (10/20/2007): Hx of bilat pleurodesis Blood in stool 07/14/2006 10/20/2007 Diverticulitis of colon (dani costa mention of hemorrhage) 07/14/2006 05/22/2008 Overview (10/20/2007): Hx of in the past x 1 per patient. Now with recurrence - transferred from [place] due to failure to resolve Diverticulosis of colon (dani costa mention of hemorrhage) 05/29/2006 07/29/2020 HX OF DVT 05/29/2006 07/29/2020 Overview (10/20/2007): 10 yrs ago, s/p leg injury Emphysematous bleb 9 Dyspepsia and other specifie d disorders of function of stomach 07/29/2020 Nocturia 07/29/2020 Encounters Date Type Department Care Team Description 11/03/2023 Anticoagulation (warfarin) [facility] [address] [place] [address] 1, [facility] Anticoagulation 11/02/2023 9:40 AM CDT Orders Only [facility] [address] [place] [id number] Lab, [facility] 11/02/2023 Travel 11/01/2023 Telephone [facility] [address] [place] [address] Lee Broderick MD Anticoagulation (AC order update ) 10/24/2023 Orders Only [facility] Scanner 1 scan: (1-Ord) [facility], 2 LEVEL LUMBAR FACET NERVE BLOCKADE, RT L3-5 MEDIAL BRANCHES, INNERVATING THE L4-5 AND L5-S1 , 10/24/2023 10/21/2023 9:15 AM CDT Orders Only [facility] [address] [place] [address] Lab, [facility] 10/21/2023 Anticoagulation (warfarin) [facility] [address] [place] [address] 1, [facility] Anticoagulation 10/21/2023 Travel 10/15/2023 Telephone [facility] [address] [place] [address] Lee Broderick MD Anticoagulation (Dosing) 10/15/2023 Nurse Triage [facility] [address] [place] [address] Lee Broderick MD Leg Pain/problem 10/15/2023 Anticoagulation (warfarin) [facility] [address] [place] [address] 1, [facility] Anticoagulation 10/14/2023 2:15 PM CDT Office Visit [facility] [address] [place] [address] Lindsey Razo MD Hospital F/U (COVID-19 - Weakness ) 10/14/2023 Travel 10/03/2023 Orders Only [facility] Scanner 1 scan: (1-Ord) BNIA WILLIAMSON CHEST, 10/03/2023 09/21/2023 4:00 PM CDT Office Visit [facility] [address] [place] [address] Hitesh Akbar MD Musculoskeletal Problem (Follow up back pain) 09/21/2023 Travel 09/15/2023 Telephone [facility] [address] [place] [address] Hitesh Akbar MD Questions (/) 09/14/2023 Anticoagulation (warfarin) [facility] [address] [facility] [place] [address] 1, [facility] Anticoagulation 09/13/2023 2:30 PM CDT Orders Only [facility] [address] [place] [address] Lab, [facility] 09/13/2023 Travel 09/12/2023 Telephone [facility] [address] [place] [address] 1, [facility] Anticoagulation (Refill warfarin) 09/02/2023 2:00 PM CDT Office Visit [facility] [address] [place] [address] Gian Rodas MD [facility], [place] Follow Up (Arteriosclerotic heart disease) 09/02/2023 8:25 AM CDT Office Visit [facility] [address] [place] [address] Lee Broderick MD Medicare ANNUAL (subsequent) Visit (88 year old) 09/02/2023 Anticoagulation (warfarin) [facility] [address] [place] [address] 1, [facility] Anticoagulation 09/02/2023 Travel 09/01/2023 Telephone [facility] [address] [facility] [place] [address] Hitesh Akbar MD Results (MRI) 08/29/2023 Orders Only [facility] [address] [facility] [place] [address] Hitesh Akbar MD 1 scan: (1-Ord) [place], LUMBAR SPINE WO CON, 08/24/2023 08/24/2023 Orders Only [facility] Scanner 1 scan: (1-Ord) [facility], MR LUMBAR SPINE WO, 08/24/2023 08/22/2023 Anticoagulation (warfarin) [facility] [address] [place] [address] 1, [facility] Anticoagulation (Chart Update) 08/18/2023 8:45 AM CDT Orders Only [facility] [address] [facility] [place] [address] Lab, [place] 08/18/2023 Anticoagulation (warfarin) [facility] [address] [place] [address] 1, [facility] Anticoagulation 08/18/[address] [address] Hitesh Akbar MD imaging order needed 08/18/[address] [address] Hitesh Akbar MD 08/18/2023 Travel 08/12/2023 10:55 AM CDT Office Visit [address] [address] Lee Broderick MD Follow Up (Diverticulitis - still having right side abdomen and pain back) 08/12/2023 Anticoagulation (warfarin) [facility] [address] [place] [address] 1, [facility] Anticoagulation 08/12/[address] [address] Lee Broderick MD Anticoagulation 08/12/2023 Travel 08/12/2023 Nurse Triage [address] [address] Lee Broderick MD Hearing Loss (cleaned out ears and couldn't hear) 08/05/2023 10:30 AM CDT Ancillary Procedure [address] [address] 08/05/2023 9:05 AM CDT Office Visit [address] [address] Camila Hernandes MD Abdominal Pain (right side abdominal pain in front and back for 2-3 weeks, getting worse/) 08/05/2023 Anticoagulation (warfarin) [facility] [address] [place] [address] Lee Broderick MD Error-please disregard (opened in error) 08/05/2023 Anticoagulation (warfarin) [facility] [address] [place] [address] 1, [facility] Anticoagulation (Chart Update) 08/05/2023 Telephone [facility] [address] [place] [address] Lee Broderick MD Anticoagulation (BPA- Metronidazole) 08/05/2023 Travel 08/05/2023 Telephone [facility] [address] [place] [address] Jessica Day RN Abdominal Pain 08/05/2023 Telephone [facility] [address] [place] [address] Lee Broderick MD Error-please disregard from Last 3 Months Immunizations Name Administration Dates Next Due COVID-19 VACCINE SPIKEVAX (M ODERNA 50MCG/0.5ML) 12YO+ PFS 12/07/2022 COVID-19 vaccine (Pfizer-Bio NTech 30mcg/0.3mL) 12YO+ [...] Sign Reading Time Taken Comments Blood Pressure 119/66 10/14/2023 2:12 PM CDT Pulse 93 10/14/2023 2:12 PM CDT Temperature 36.7 ??C (98 ??F) 09/21/2023 3:53 PM CDT Respiratory Rate 16 02/10/2023 6:16 PM CORRECTIONAL 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 SERVICE 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 Oxygen Saturation 95% 10/14/2023 2:12 PM CDT Inhaled Oxygen Concentration - - Weight 93 kg (205 lb) 10/14/2023 2:12 PM CDT Height 176.5 cm (5' 9.49) 09/02/2023 8:17 AM CD T Body Mass Index 29.85 09/02/2023 8:17 AM CDT Plan of Treatment Health Maintenance Due Date Last Done Comments RSV vaccine for adults or (1 - 1-dose 75+ series) 05/08/2011 Tetanus booster 06/14/2023 06/13/2013, 0407/2008, 01/28/1995 COVID-19 vaccine series ( season) 2023 12/07/2022, 08/27/2022, 10/26/2021, Additional history exists Influenza for age 65+ 10/09/2023 11/04/2022 , [...] history exists Medical Devices Implanted Type Area Kids Activities Coach Device Identifier Shelf Expiration Date Model / Serial / Lot Mesh Prolene Hernia Extended System - [id number] Implanted:Qty: 1 on 10/21/2007 at [facility] General Surgery Implants Right: Abdomen [employer] (SUTURE) [facility]# / / [id number] Procedures Procedure Name Priority Date/Time Associated Diagnosis Comments PROTIME-INR Routine 11/02/2023 12:27 PM CDT SCAN-OPERATIVE/PROCEDUR E REPORT 10/24/2023 12:00 AM CDT PROTIME-INR STAT 10/21/2023 9:10 AM CDT Paroxysmal A-fib (HC) Anticoagulation monitoring, INR range 2-3 PROTIME-INR STAT 10/14/2023 2:54 PM CDT Paroxysmal A-fib (HC) Anticoagulation monitoring, INR range 2-3 SCAN-RADIOLOGY REPORT 10/03/2023 12:00 AM CDT PROTIME-INR [...] Last 3 Months Results * (ABNORMAL) PROTIME-INR (11/02/2023 12:27 PM CDT) Only the most recent of6 resultswithin the time period is included. INR 2.3(H) [facility] Comment: Reference Range ? 0.9-1.1 Moderate-intensity Warfarin Therapy 2.0-3.0 Higher-intensity Warfarin Therapy ?? 3.0-4.0 PT 23.9(H) 9.0 - 11.5 sec [employer] [facility] Comment: For additional information, please refer to http://education.[employer]/faq/QQC019 (This link is being provided for informational/ educational purposes only.) 11/02/2023 12:2 7 PM CDT 11/02/2023 12:28 PM CDT Narrative [facility] - 11/03/2023 5:44 AM CDT FASTING:NO FASTING: NO Lee Broderick MD HEMATOLOGY [employer] [facility] [address] [place] [address], [employer] [facility] [address] [place] [address] * SCAN-OPERATIVE/PROCEDURE REPORT (10/24/2023 12:00 AM CDT) Scanner OTHER * SCAN-RADIOLOGY REPORT (10/03/2023 12:00 AM CDT) Anatomical Region Laterality Modality Other Scanner OTHER * (ABNORMAL) LIPID PANEL W REFLEX MEASURED LDL (09/02/2023 9:05 AM CDT) CHOLESTEROL,TOTAL 134 100 - 199 mg/dL 09/02/2023 7:52 PM CDT [facility] Comment: Cholesterol, Total Reference Ranges Desirable <200 mg/dL Borderline 200-239 mg/dL High >=240 mg/dL TRIGLYCERIDES 143 <150 mg/dL 09/02/2023 7:52 PM CDT [facility] HDL CHOLESTEROL 36(L) >40 mg/dL 7:52 PM CDT [facility] NON-HDL CHOLESTEROL 98 <145 mg/dl 09/02/2023 7:52 PM CDT [facility] CHOL/HDL RATIO 3.72 <4.50 09/02/2023 7:52 PM CDT [facility] LDL CHOLESTEROL 69 <=130 mg/dL 09/02/2023 7:52 PM CDT [facility] VLDL CHOLESTEROL 29 <=30 mg/dL 09/02/2023 7:52 PM CDT [facility] PROVIDER ORDERED STATUS RANDOM 09/02/2023 7:52 PM CDT [facility] Blood BLOOD SPECIMEN / Unknown Venipuncture / Unknown 09/02/2023 9:05 AM CDT 09/02/2023 9:05 AM CDT Lee Broderick MD CHEMISTRY Performing Organization Address [facility] Co de Phone Number [facility] [address] [place] [address], * PSA TOTAL (DIAGNOSTIC) (09/02/2023 9:05 AM CDT) PSA TOTAL (DIAGNOSTIC) <0.02 <4.00 ng/mL 09/02/2023 7:54 PM CDT [facility] Blood BLOOD SPECIMEN / Unknown Venipuncture / Unknown 09/02/2023 9:05 AM CDT 09/02/2023 9:05 AM CDT Narrative [facility] - 09/02/2023 7:54 PM CDT The [...] Lee Broderick MD CHEMISTRY Performing Organization Address [facility] Co de Phone Number [facility] [address] [place] [address], [place] * SCAN-MRI INTERPRETATION (08/24/2023 12:00 AM CDT) Anatomical Region Laterality Modality Other Scanner OTHER * MR SPINE LUMBAR WO (08/24/2023 12:00 AM CDT) Anatomical Region Laterality Modality Spine, LUMBAR SPINE Magnetic Res onance Hitesh Akbar MD MR * (ABNORMAL) INR,POCT (08/18/2023 8:46 AM CDT) INR 2.3(H) <1.3 08/18/2023 8:48 AM CDT [facility] Blood BLOOD SPECIMEN / Unknown Capillary / Unknown 08/18/2023 8:46 AM CDT 08/18/2023 8:46 AM CDT Narrative [facility] - 08/18/2023 8:48 AM CDT ?Therapeutic Range 2.0-3.0 for most anticoagulated patients 2.5-3.5 or 4.0 for high risk patients Lee Broderick MD LABORATORY [facility] [address] [place] [address], [place] [phone] * URINE CULTURE (08/12/2023 11:28 AM CDT) CULTURE <10,000 CFU/mL multiple organisms 08/13/2023 2:39 PM CDT [facility] Urine URINE SPECIMEN / Unknown Non-Blood / Unknown 08/12/2023 11:28 AM CDT 08/12/2023 11:28 AM CDT Lee Broderick MD [facility]Y [facility] [address] [place] [address], [place] * UA W/ SEDIMENT EXAM REFLEXED PER CRITERIA (08/12/2023 11:28 AM CDT) COLOR Yellow Yellow Color 08/12/2023 11:33 AM CDT [facility] CLARITY Clear Clear Clarity 08/12/2023 11:33 AM CDT [facility] SPECIFIC GRAVITY,URINE 1.020 1.010, 1.015, 1.020, 1.025 08/12/2023 11:33 AM CDT [facility] PH,URINE 7.0 6.0, 7.0, 8.0, 5.5, 6.5, 7.5, 8.5 08/12/2023 11:33 AM CDT [facility] UROBILINOGEN, QUALITATIVE Normal Normal EU/dl 08/12/2023 11:33 AM CDT [facility] PROTEIN, URINE Negative Negative mg/dL 08/12/2023 11:33 AM CDT [facility] GLUCOSE, URINE Negative Negative mg/dL 08/12/2023 11:33 AM CDT [facility] KETONES,URINE Negative Negative mg/dL 08/12/2023 11:33 AM CDT [facility] BILIRUBIN,URI NE Negative Negative 08/12/2023 11:33 AM CDT [facility] OCCULT BLOOD,URINE Negative Negative 08/12/2023 11:33 AM CDT [facility] NITRITE Negative Negative 08/12/2023 11:33 AM CDT [facility] LEUKOCYTE ESTERASE Negative Negative 08/12/2023 11:33 AM CDT [facility] Urine URINE SPECIMEN / Unknown Non-Blood / Unknown 08/12/2023 11:28 AM CDT 08/12/2023 11:28 AM CDT Lee Broderick MD URINE [facility] [address] [place] [address], * (ABNORMAL) CBC WITH AUTO DIFFERENTIAL (08/12/2023 11:21 AM CDT) Only the most recent of2 resultswithin the time period is included. WHITE BLOOD COUNT 10.4 4.5 - 11.0 thou/cu mm 08/12/2023 11:26 AM CDT [facility] RED BLOOD COUNT 4.93 4.30 - 5.90 mil/cu mm 08/12/2023 11:26 AM CDT [facility] HEMOGLOBIN 16.1 13.5 - 17.5 g/dL 08/12/2023 11:26 AM CDT [facility] HEMATOCRIT 46.9 37.0 - 53.0 % 08/12/2023 11:26 AM CDT [facility] MCV 95 80 - 100 fL 08/12/2023 11:26 AM CDT [facility] MCH 32.7 26.0 - 34.0 pg 08/12/2023 11:26 AM CDT [facility] MCHC 34.3 32.0 - 36.0 g/dL 08/12/2023 11:26 AM CDT [facility] RDW 12.4 11.5 - 15.5 % 08/12/2023 11:26 AM CDT [facility] PLATELET COUNT 257 140 - 440 thou/cu mm 08/12/2023 11:26 AM CDT [facility] MPV 10.2 6.5 - 11.0 fL 08/12/2023 11:26 AM CDT [facility] % NEUT 62.8 % 08/12/2023 11:26 AM CDT [facility] % LYMPH 21.5 % 08/12/2023 11:26 AM CDT [facility] % MONO 12.6 % 08/12/2023 11:26 AM CDT [facility] % EOS 2.9 % 08/12/2023 11:26 AM CDT [facility] % BASO 0.2 % 08/12/2023 11:26 AM CDT [facility] ABSOLUTE NEUTROPHILS 6.6 1.7 - 7.0 thou/cu mm 08/12/2023 11:26 AM CDT [facility] ABSOLUTE LYMPHOCYTES 2.2 0.9 - 2.9 thou/cu mm 08/12/2023 11:26 AM CDT [facility] ABSOLUTE MONOCYTES 1.3(H) <0.9 thou/cu mm 08/12/2023 11:26 AM CDT [facility] ABSOLUTE EOSINOPHILS 0.3 <0.5 thou/cu mm 08/12/2023 11:26 AM CDT [facility] ABSOLUTE BASOPHILS 0.0 <0.3 thou/cu mm 08/12/2023 11:26 AM CDT [facility] Blood BLOOD SPECIMEN / Unknown Venipuncture / Unknown 08/12/2023 11:21 AM CDT 08/12/2023 11:22 AM CDT Lee Broderick MD HEMATOLOGY [facility] [address] [place] [address], * CT ABDOMEN PELVIS STONE PROTOCOL WO [...] For Patients: As a result of the Century Cures Act, medical imagingexams and procedure reports [...] as low as reasonably achievable. Dictated by Nelad Jackson MD @ 08/05/2023 10:59:04 AM (Electronically Signed) Camila Hernandes MD CT * (ABNORMAL) COMP METABOLIC PANEL (08/05/2023 9:52 AM CDT) SODIUM 141 136 - 145 mmol/L 08/05/2023 1:24 PM [facility] POTASSIUM 3.9 3.5 - 5.1 mmol/L 08/05/2023 1:24 PM [facility] CHLORIDE 100 98 - 107 mmol/L 08/05/2023 1:24 PM [facility] CO2,TOTAL 32(H) 22 - 29 mmol/L 08/05/2023 1:24 PM [facility] ANION GAP 9 5 - 18 08/05/2023 1:24 PM [facility] GLUCOSE 103(H) 70 - 99 mg/dL 08/05/2023 1:24 PM [facility] CALCIUM 9.8 8.8 - 10.2 mg/dL 08/05/2023 1:24 PM [facility] BUN 20 8 - 23 mg/dL 08/05/2023 1:24 PM [facility] CREATININE 1.01 0.70 - 1.20 mg/dL 08/05/2023 1:24 PM [facility] BUN/CREAT RATIO 20 10 - 20 4 1:24 PM [facility] eGFR 72(L) >90 mL/min/1.7 3m2 08/05/2023 1:24 PM [facility] Comment:As of 2021, eG FR is calculated by the CKD-EPI creatinine equation without race adjustment. ??eGFR can be influenced by muscle mass, exercise, and diet. ??The reported eGFR is an estimation only and is only applicable if the renal function is stable. ALBUMIN 4.0 4.0 - 4.9 g/dL 08/05/2023 1:24 PM [facility] PROTEIN,TOTAL 7.4 6.0 - 8.0 g/dL 08/05/2023 1:24 PM [facility] BILIRUBIN,TOTAL 2.4(H) 0.0 - 1.2 mg/dL 08/05/2023 1:24 PM [facility] ALK PHOSPHATASE 93 40 - 129 IU/L 08/05/2023 1:24 PM [facility] ALT (SGPT) 9(L) 10 - 50 IU/L 08/05/2023 1:24 PM [facility] AST (SGOT) 25 10 - 50 IU/L 08/05/2023 1:24 PM [facility] Blood BLOOD SPECIMEN / Unknown Venipuncture / Unknown 08/05/2023 9:52 AM CDT 08/05/2023 9:53 AM [facility] Camila Hernandes MD CHEMISTRY [facility] [address] [place] [address] from Last 3 Months Advance Directives Documents on File Type Date Recorded Patient Creative Services Specialist Expl anation Healthcare Directive 08/13/2014 12:00 AM 08/08/14 * Full Code (Latest Code Status on File) Date Activated Date Inactivated Comments 06/14/2012 10:18 AM 06/16/2012 1:47 PM * Full Code Date Activated Date Inactivated Comments 10/20/2007 6:40 PM 10/23/2007 4:59 PM Care Teams Transit Coach Operator Relationship Specialty Start Date End Date Lee Broderick MD [address] [place] [address] PCP - General Family Practice 07/02/20 Vira Polanco AuD Audiology 09/11/12
--- OUTSIDE RECORDS SUMMARY | 2023-11-03 22:18 | XMS_ITS | Encounter Summary ---
Author Name [facility] [place] [facility] [place] [facility] Address [address] [place] [address] Insurance Providers: All historical and current Section [...] Name Patient's Relationship to Policy Barlow BS [place] MCR (WNR) MEDICARE ADVANTAGE MCR (WNR) Feb 07, 2010 [id number] [phone] ZAN MILAN PATIENT Selected Encounter This section includes the information on record at [place] for the Encounter. Date/Time Encounter Type Encounter Description Reason Provider Source Jul 12, 2023 07:45 AM HEARING AID EXAM BOTH EARS AUDIOLOGY ICD-10-CM Z01.118 Encntr for exam of ears and hearing w oth abnormal findings TICO NORIEGA Brittani Encounter Template Text not used by [place] Assessments - Encounter Diagnoses This section includes the primary and secondary diagnoses documented for the Encounter. Date/Time Primary/Secondary Diagnosis Diagnosis Name Provider Source Jul 12, 2023 06:16 PM PRIMARY Encntr for exam of ears and hearing w oth abnormal findings TICO NORIEGA [facility] Jul 12, 2023 06:16 PM SECONDARY Sensorineural hearing loss, bilateral TICO NORIEGA [facility] Plan of Treatment: Future Appointments (+ 6 months) and Future Tests (+/- 45 days) The Plan of Treatment section includes future care activities for the patient from all [place] treatmentfacilities. This section includes future appointments and future orders which are active, pending or scheduled. Future Appointments This section includes appointments that were scheduled to occur 6 months from the date of the Encounter, up to a maximum of 20 appointments. The data comes from all [place] treatment facilities. Appointment Date/Time Appointment Type Appointme nt Facility Name Aug 16, 2023 08:45 AM AMBULATORY - SURGERY [facility] Oct 20, 2023 10:30 AM AMBULATORY [...] from this visit is placed into a [facility] Audiogram module. The reports it is not his hearing but his understanding. This leads us into conversation about his hearing loss being the cause of his decreased understanding The is Service Connected for Hearing Loss (40%). He reports he has had no trouble with his ears besides hearing, no pressure, fullness, pain or drainage. [place] was unaccompanied into the appointment but his son drove him and stayed in the waiting room today. I asked about TV and he stated that his has her TV louder than his in the other room. I urged him to use the recently acquired [place] payment to have her tested and fit [...] headphones Reliability: Good RIGHT EAR (Hz) 250 354 633 8085 1500 2000 3000 4000 6000 8000 Air: See Audiogram Display under Tools>AUDIOLOGY>ROES or see HARI Database Bone: See Audiogram Display under Tools>AUDIOLOGY>ROES or see HARI Database LEFT EAR (Hz) 250 336 356 0984 1500 2000 3000 4000 6000 8000 Air: [...] Recognition Scores are mildly impaired. AMPLIFICATION: - [place] is a good candidate for hearing aid use. - [place] was counseled on his type, degree and [...] lifestyle needs. He is open to the RightScale style device, rechargeable technology and has a cellphone. - The has good vision, memory and dexterity for hearing aid use. - counseled using a standard curriculum on realistic expectations associated with adjusting to hearing aids, use of the devices, VA procedures and trial period. - [place] counseled using a standard curriculum on effective communication strategies particularly in the home with strategies such as each person calling the name before speaking or such as maintaining face to face contact when speaking, eliminating background noise when possible and talking at a close range. Also that his should consider strongly getting hearing aids to maintain balance in the home. - [place] counseled using a standard curriculum on hearing protection in noise. - Hearing aids ordered: Phonak Digital Performanceeo L90-RL hearing aids (Silver, Size 2M receivers, C-shell earmolds) were selected and ordered today. PLAN: 1. [place] will be scheduled for a 60-minute hearing aid fitting appointment. 2. The is in agreement with this plan. /es/ Ar BAEZ, [facility] CLINICAL/COCHLEAR IMPLANT SECURITY POLICE Signed: 07/12/2023 18:16 09/07/2023 ADDENDUM STATUS: COMPLETED Contact made with [place]. We are moving the clinic to , agreed to move his appointment to the following day, same time. I will Have this scheduled. /es/ Ar Real Ph.D. [employer] Intermediary Chief, Audiology Signed: 09/07/2023 09:33 TICO NORIEGA [facility]
--- OUTSIDE RECORDS SUMMARY | 2023-11-03 22:18 | XMS_ITS | Continuity of Care Document ---
Author Organization [facility] Address [address] [place] [address] Phone Care Team Providers Care General Administrator Name Role Phone Eben Chacon MD Unavailable [...] Remove Lumbar Spine Lamina, 1 Seg Office/Outpatient Visit,[facility], Mod 2012 Office/outpatient visit,est, low 2010 Office/outpatient visit,[facility], mod 2010 X-ray exam lwr spine, min 4 views Advance Directives Directive Yes / No Effective Date File Name No Information Encounters Encounter Description Practice Location Reason(s) For Visit Diagnoses Date Provider Providers Copied on Encounter [facility], [address], [place], [place], [id number], [place] tel:[phone] [facility] No Information 7 Ines Treadwell. [facility], [address], [facility] [address], [place], [place], [id number], [place]. tel:[phone] Office/Outpa tient Visit,Est, Mod [facility], [address], [place], [place], [id number], [place] tel:[phone] [facility] OverweightSp inal stenosis, lumbar regionOther intervertebr al disc displacement , lumbar region Dec- 5 Transfeldt Ensor. [facility], [address] [place] [address], [facility] [address], [place], [id number], [place]. tel:[phone] Referring Provider: Hitesh Lawrence, [address], [address]. tel:[phone] Z [facility] [place], [address] [place] [address], [address], [place] tel:[phone] [facility] No Information 3 Transfeldt Ensor. [facility] [place], [address], [address], [id number], [place]. tel:[phone] Referring Provider: Abel Benoit, [facility] [address] [place], [address]. tel:[phone] Office/Outpa tient Visit,New, Mod Z [facility] [place], [address] [place] [address], [address], [place] tel:[phone] [facility] No Information 3 Transfeldt Ensor. [facility] [place], [address], [address], [id number], [place]. tel:[phone] Referring Provider: Abel Benoit, [facility] [address] [place], [address]. tel:[phone] Z [facility] [place], [address] [place] [address], [address], [place] tel:[phone] [facility] No Information 3 Eckroth Fletcher. [address] [place] [address], [id number], [place]. tel:[phone] Office/outpa tient visit,est, low Z [facility], [address] [place], [place] [address], [place], [address], [place] tel:[phone] [facility] No Information Transfeldt Ensor. [facility], [address] [place] [address], [facility] [address], [place], [place], [id number], [place]. tel:[phone] Referring Provider: Abel Benoit, [facility] [address] [place], [address]. tel:[phone] Office/outpa tient visit,new, [facility] Z [facility], [address] [place] [address], [place], [address], [place] tel:[phone] [facility] No Information 1 Dario Bynum. [address], [id number], [place]. tel:[phone] Referring Provider: Abel Benoit, [facility] [address] [place], [address]. tel:[phone] Z [facility], [address] [place] [address], [address], [place] tel:[phone] Printed Piece back pain (chief complaint) Hypertension , UnspecifiedH ypercholeste rolemia No Information Referring Provider: Abel Benoit, [facility] [address] [place], [address]. tel:[phone] Family History Family Member Type Diagnosis Age At Onset Problem (finding) Family history of Cance r Problem (finding) Family history of Low b ack problems Payers Payer name Insurance type Covered democrat ID Authoriza tion(s) [id number] Medicare [facility] BL [id number] Social History Type Description Quantity Date Captured Comments Sex Male Smoking Status No Information Chief Complaint And Reason For Visit No Information Reason For Referral Reason For Referral No Information History Of Present Illness Encounter Date Complaint History Of Prese nt Illness No Information Functional Status Date Functional Assessmen t No Information Instructions Date Instruction Additional Infor nataliia Weight Management [facility] Weight [facility]: R efer to Referral to General Practitioner timeframe: 1 Month. Related to Overweight Assessments Type Assessment Date No Information Patient Care Teams Name Effective Dates (start - stop) Status Members No Information
--- OUTSIDE RECORDS SUMMARY | 2023-11-03 22:18 | XMS_ITS | Encounter Summary ---
Author Name [facility] [place] Organization [facility] [place] Address [address] [place] [address] Insurance Providers: All historical and current Section Date Range: From patient's date of to the date document was created. This section includes the names of all active insurance providers for the patient. Insurance Provider Type of Coverage Plan Name Start of Policy Coverage End of Policy Coverage Group Number Member ID Insurance Provider's Telephone Number Policy Barlow's Name Patient's Relationship to Policy Barlow [facility] MCR (WNR) MEDICARE ADVANTAGE MCR (WNR) Feb 07, 2010 [id number] [phone] ZAN REDDY PATIENT Selected Encounter This section includes the information on record at [place] for the Encounter. Date/Time Encounter Type Encounter Description Reason Provider Source Oct 20, 2023 10:30 AM HEARING AID FITTING/CHECKIN G AUDIOLOGY ICD-10-CM H90.3 Sensorineural hearing loss, bilateral ISABELLE DOMÍNGUEZ Brittani Encounter Template Text not used by [place] Assessments - Encounter Diagnoses This section includes the primary and secondary diagnoses documented for the Encounter. Date/Time Primary/Secondary Diagnosis Diagnosis Name Provider Source Oct 20, 2023 10:38 AM PRIMARY Sensorineural hearing loss, bilateral ISABELLE DOMÍNGUEZ [facility] Oct 20, 2023 10:38 AM SECONDARY Encounter for fitting and adjustment of hearing aid ISABELLE DOMÍNGUEZ [facility] Encounter Notes: All associated encounter notes This section contains the clinical notes associated to the Encounter. Date/Time Encounter Note(s) Provider Source Oct 20, 2023 10:39 AM SUICIDE PREVENTION RISK ASSESSMENT SCREENING NOTE: LOCAL TITLE: [place] SCREENING NOTE STANDARD TITLE: SUICIDE PREVENTION RISK ASSESSMENT SCREENING NOT DATE OF NOTE: OCT 20, 2023@10:39 ENTRY DATE: OCT 20, 2023@10:39:30 AUTHOR: ISABELLE DOMÍNGUEZ EXP COSIGNER: URGENCY: STATUS: COMPLETED C-SSRS Screening [place]-Suicide Severity Rating Scale (C-SSRS Screener) 1. Over the past month, have you wished you were or wished you could go to sleep and not wake up? No 2. Over the past month, have you had any actual thoughts of killing yourself? No 3. Over the past month, have you been thinking about how you might do this? Response not required due to responses to other questions. 4. Over the past month, have you had these thoughts and had some intention of acting on them? Response not required due to responses to other questions. 5. Over the past month, have you started to work out or worked out the details of how to kill yourself? Response not required due to responses to other questions. 6. If yes, at any time in the past month did you intend to carry out this plan? Response not required due to responses to other questions. 7. In your lifetime, have you ever done anything, started to do anything, or prepared to do anything to end your life (for example, collected pills, obtained a gun, gave away valuables, went to the roof but didn't jump)? No 8. If YES, was this within the past 3 months? Response not required due to responses to other questions. /bessie/ Ar Real Ph.D. Aerophysics Engineer Chief, Audiology Signed: 10/20/2023 10:41 ISABELLE DOMÍNGUEZ [facility] Oct 20, 2023 10:26 AM AUDIOLOGY NOTE: LOCAL TITLE: AUDIOLOGY CLINIC NOTE STANDARD TITLE: AUDIOLOGY NOTE DATE OF NOTE: OCT 20, 2023@10:26 ENTRY DATE: OCT 20, 2023@10:26:41 AUTHOR: ISABELLE DOMÍNGUEZ EXP COSIGNER: URGENCY: STATUS: COMPLETED AMAYA Follow-up - 10/20/23 Patient Name: Autumn Reddy Age: 88 Right ear: Audeo L90-RL SN: [id number] Left ear: Audeo L90-RL SN: [id number] S: [place] presented to clinic today for follow-up, noting difficulty hearing on the phone. O: Clinician observations: Otoscopy: Clear canals, bilaterally. Visual inspection and biologic listening check revealed clean aids providing adequate gain. A: Actions taken: Hearing aids were connected to software to confirm settings. Hearing aids were successfully paired to the 's cellular phone. P: Recommendations/plan of action: No further follow-up is necessary at this time. The was instructed to make an appointment with the audiology clinic if new issues arise with his hearing aids, or sooner if he detects a change in his hearing. This treatment plan was discussed with the patient. The patient verbally demonstrated an understanding of the information provided and actively participated in the treatment plan. /bessie/ Ar Real Ph.D. Aerophysics Engineer Chief, Audiology Signed: 10/20/2023 10:38 ISABELLE DOMÍNGUEZ [facility]
--- OUTSIDE RECORDS SUMMARY | 2023-11-03 22:19 | XMS_ITS | Encounter Summary ---
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 [address] [place] [phone] [facility] Referral ID Status Reason Start Date Expiration Date V isits Requested Visits Authorized [id number] Authorized 08/30/2023 08/29/2024 12 12 Encounter Details Date Type Department Care Team (Latest Contact Info) Description 10/11/2023 10:00 AM CDT Procedure visit Department of Urology in [place], [place] [address] [place] [phone] Wade Amanda M.D. [address] [place] [phone] Antonietta Sahu, L.P.N. 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 More than 4 times per year 06/09/2022 Do you belong to any clubs o r organizations such as anabaptist groups, unions, fraternal or athletic groups, or [...] Answer Date Recorded PHQ-2 Score 0 09/21/2018 [facility] Occup[facility] - Occupational Stress [...] your living situation today? I have a [facility] place to live 06/22/2023 Education Answer Date Recorded What is the highest level of school you have completed or the highest degree you have received? 12th grade 06/09/2022 Sex and Gender Information Value Date Recorded Sex Assigned at Male 01/03/2018 1:26 PM WEB USER EXPERIENCE STRATEGIST Gender Identity Not on file Sexual Orientation Straight 01/03/2018 1: 26 PM WEB USER EXPERIENCE STRATEGIST documented as of this encounter Progress Notes * Antonietta Sahu, L.P.N. - 10/11/2023 10:00 AM CDT Peña Reddy is here for suprapubic catheter exchange ordered by Dr. Soetlo (Oleg) Khoa Amandadated 08/25/2023. See flowsheets for additional details. Peña Reddy tolerated visit well. Patients next exchange is 11/10/23 with appt to see Dr. Amanda. Patient will transition November exchange to [place]. Care plan to be sent. documented in this encounter Plan of Treatment Upcoming Encounters Date Type Department Care Team (Late st Contact Info) Description 11/08/2023 9:15 AM CDT Clinical Communication Virtual Review in [place], [place] 200 [place] [phone] 11/10/2023 10:00 AM CDT Office Visit Department of Urology in [place], [place] [address] [place] [phone] Wade Amanda M.D. [address] [place] [phone] 11/10/2023 10:45 AM CDT Procedure visit Department of Urology in [place], [place] [address] [place] [phone] Wade Amanda M.D. [address] [place] [phone] 12/12/2023 10:30 AM WEB USER EXPERIENCE STRATEGIST Office Visit Department of Urology in [address] [phone] Kennedi Dan APRN, C.N.P. 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
--- OUTSIDE RECORDS SUMMARY | 2023-11-03 22:19 | XMS_ITS | Encounter Summary ---
Author Organization [facility] Address [address] [place] [address] Care Team Providers Care Kiln Mechanic Name Role Phone Elsewhere, Pcp Primary Care Provider Unavailabl e Encounter Details Date Type Department Care Team (Late st Contact Info) Description 08/25/2023 7:59 AM CDT Anesthesia Event Department of Radiology in [place], [place] [address] [place] [phone] Joan Howell APRN, CRNA, DNAP [address] [place] [phone] Mary Montano M.D. [address] [place] [phone] Anesthesia Record Procedure Summary Procedure Name Responsible [...] Drains, and Airways Type Details Placement Removal Peripheral IV Placement Date: 08/07 09/30; Placement Time: 0700; Catheter Size: 20 G; Orientation: Anterior, Lower, Proximal, Right; Location: Forearm; Site Prep: Chlorhexidine (Preferred); Inserted by: heb; Insertion Attempts: 1; Removal Date: 08/25/23; Removal Time: 1027; Removal Reason: Patient discharged 08/25/23 0700 by Stacy Cohen 08/25/23 1027 by Mirna Churchill, M.S.N., R.N. Supraglottic Airway Placement Date: 08/07 09/30; Placement Time: 0808 (created via procedure documentation); Mask Ventilation: Not attempted; Brand: Unique; Size: 5; Removal Date: 08/25/23; Removal Time: 0852 08/25/23 0808 by Joan Howell APRN, CT, DNAP 08/25/23 0852 by Joan Howell APRN, CRNA, DNAP Suprapubic Catheter 08/25/23; 0834; Double-lumen; 16 Fr. 08/25/23 0834 by Lesly Pena, R.N. 10/11/23 0000 by Antonietta Sahu, L.P.N. documented in this encounter Social History Tobacco Use Types Packs/Day Years Used Date Smoking Tobacco: Former Cigarettes 1 25 0 02/08/1956 - 02/07/1981 Passive Smoke Exposure: Past Smokeless Tobacco: Never Chew Quit: 03/03/1981 Passive Exposure Comments:No t for Years Alcohol Use Standard Drinks/Week Comments Yes 7 (1 standard drink = 0.6 oz pur e alcohol) [facility] Utilities Answer Date Recorded In the past 12 months has [employer], gas, oil, or water [employer] threatened to shut off services in your [...] How often do you attend chur or zoroastrianism services? More than 4 times per year 06/09/2022 Do you belong to any clubs o r organizations such as yazidism groups, unions, fraternal or athletic groups, or [...] Answer Date Recorded PHQ-2 Score 0 09/21/2018 [facility] [place] of Occupat ional Health - Occupational Stress [...] your living situation today? I have a [facility] place to live 06/22/2023 Education Answer Date Recorded What is the highest level of school you have completed or the highest degree you have received? 12th grade 06/09/2022 Sex and Gender Information Value Date Recorded Sex Assigned at Male 01/03/2018 1:26 PM EMERGENCY MEDICAL TECH Gender Identity Not on file Sexual Orientation Straight 01/03/2018 1: 26 PM EMERGENCY MEDICAL TECH documented as of this encounter OR Notes * Anesthesia Postprocedure Evaluation - Joan Howell APRN, CT, DNAP - 08/25/2023 8:59 AM CDT Patient: Peña Watt Finger Procedure Summary Date: 08/25/23 Room / Location: Department of Radiology in [place], [place] Anesthesia Start: 758 Anesthesia Stop: 08 Procedure: IR SUPRAPUBIC CATHETER PLACEMENT Diagnosis: Enlarged [...] Mckinnon M.D.; Joan Howell APRN, CRNA, DNAP Procedure: IR SUPRAPUBIC CATHETER PLACEMENT Diagnosis: 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 Present illness and pre-op diagnosis were confirmed. The planned surgery / procedure was verified with the patient / legal guardian. 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 The use of blood products not discussed Approval to Proceed: approved for anesthesia documented in this encounter Plan of Treatment Upcoming Encounters Date Type Department Care Team (Late st Contact Info) Description 11/08/2023 9:15 AM CDT Clinical Communication Virtual Review in [place], [place] 200 [place] [phone] 11/10/2023 10:00 AM CDT Office Visit Department of Urology in [place], [place] [address] [place] [phone] Wade Amanda M.D. [address] [place] [phone] 11/10/2023 10:45 AM CDT Procedure visit Department of Urology in [place], [place] [address] [place] [phone] Wade Amanda M.D. [address] [place] [phone] 12/12/2023 10:30 AM EMERGENCY MEDICAL TECH Office Visit Department of Urology in [address] [phone] Kennedi Dan, EDDI, C.N.P. [address] [phone] documented as of this encounter Procedures Procedure [...] Joan Howell APRN, CRNA DNAHiginio Authorized by: HowellJoan hoffmann APRN, CRNA, DNAP ?? Patient location during [...] Howell APRN, CRNA, JACQUELINE ANESTHES IA ORDERABLES documented in this encounter [...] (Diprivan) intravenous, As needed, Starting on Christelle 08/25/23 at 0805, Anesthesia Intra-op Given 08/25/2023 8:05 AM CDT 160 mg documented in this encounter Care Teams Kiln Mechanic Relationship Specialty Start Date End Date Elsewhere, Pcp PCP - General Family Medicine 06/08/22 documented as of this encounter
--- OUTSIDE RECORDS SUMMARY | 2023-11-03 22:19 | XMS_ITS | Clinical Summary ---
Author Organization [facility] Address [address] [place] [address] Care Team Providers Care Manager Account Management Name Role Phone Elsewhere, Pcp Primary Care Provider Unavailabl e Source Comments Patient records contain information from all sites at [facility]. For routine questions regarding patient records, call [phone] during business hours, M-F 8:00 AM - 5:00 PM Central Time. Record requests for emergency care only can be directed to [phone] at any time.[facility] Allergies Active Allergy Reactions Criticality Noted Date [...] tablet by mouth at bedtime. 08/27/2022 Active Hospital, Clinic, or Other Facility Administered Medication Ordered Dose Route Frequency Start Date End Date Status lidocaine-EPINEPHrine 1%-1:200,000 injection 2-50 mL (Xylocaine w/epi)Indications:Squamous Cell Carcinoma In Situ 2 - 50 mL inj As needed 10/13/2023 10/13/2023 En ded Active Problems Problem Noted Date Diagnosed Date [...] Post 03/06/2018 Atherosclerotic Heart Diseas e Of [place] Coronary Artery Without Angina Pectoris 02/24/2018 Overview (09/10/2022): Added automatically from request for surgery [id number] Loss Hearing Sensorineural Bilateral 09/11/2012 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 Squamous Cell Carcinoma In Situ Discharge Disposition: Home or Self Care 10/13/2023 Ancillary Procedure Department of Dermatology 10/12/2023 Clinical Communication Department of Urology in [place], [place] [address] [place] [phone] Wade Amanda M.D. 10/12/2023 Documentation Department of Urology in [place], [place] [address] [place] [phone] Wade Amanda M.D. Catheter Care Plan 10/11/2023 10:00 AM CDT Procedure visit Department of Urology in [place], [place] [address] [place] [phone] Wade Amanda M.D. Pingel, Kim M, L.P.N. 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 Appt Request 08/25/2023 7:59 AM CDT Anesthesia Event Department of Radiology in [address] [phone] Joan Howell APRN, CHIEF MEDICAL OFFICER, DNAP Mary Montano M.D. 08/25/2023 6:30 AM CDT - 08/25/2023 10:37 AM CDT Hospital Encounter Department of Radiology in [address] [phone] Xochitl Aguillon APRN, C.N.Dale Higgins Matthew R, M.D. Isaac, Onyedika P, M.D. Discharge Disposition: Home or Self Care 08/17/2023 Clinical Communication Department of Radiology in [place], [place] [address] [place] [phone] Shima Markham R.N. 08/05/2023 Clinical Communication Department of Urology in [place], [place] [address] [place] [phone] Wade Amanda M.D. Phone call from Last 3 Months Immunizations Name Administration Dates Next Due H1N1 All Forms 02/06/2009 HZV (ZOSTAVAX) 02/11/2011 Influenza TIV (IM) 11/01/2013, 2,10/31/2008,2007,11/18/2006,11/22/2005,12/14/2004 Influenza, Quadrivalent, Adj uvanted, Preservative Free 10/26/2021,10/30/2020,10/13/2019 Influenza, Seasonal, Injectable 11/02/19 14,10/21/2011,11/27/2007,2005,12/14/2004 Influenza, Unspecified 11/07/2012,2011,10/31/2008,2006,11/22/2005 PCV13 07/03/2014 PPSV23 05/22/2008,12/02/1994 RZV (SHINGRIX) 11/06/2018,08/31/2018 SARS-COV-2 (COVID-19) - PFIZ ER (Discontinued)(12 years or older) 06/01/2021 Td Preservative Free (TENIVA C, DECAVAC) 05/13/2008 Tdap 06/13/2013 influenza trivalent high dos e (HD)(PF) 11/06/2018,11/02/2017,11/15/2016,2015,11/26/2014 influenza trivalent vaccine (6 months and older)(PF) 10/13/2019 Family History Medical History Relation Name Comments [...] drink = 0.6 oz pur e alcohol) [facility] Utilities Answer Date Recorded In the [...] week 06/09/2022 How often do you attend [facility] or hinduism services? More than 4 times per year 06/09/2022 Do you belong to any clubs o r organizations such as taoism groups, unions, fraternal or athletic groups, or [...] Frequency of Binge Drinking Not on file 05/0 04/2022 Overall Financial Resource Strain (CARDIA) Answe r Date Recorded How hard is it for you to pa y for the very basics like food, housing, medical care, and heating? 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 [address] [place] [phone] 11/10/2023 10:45 AM CDT Procedure visit Department of Urology in [place], [place] [address] [place] [phone] Wade Amanda M.D. [address] [place] [phone] 12/12/2023 10:30 AM ANTIQUE AUTOMOBILES REPAIRER Office Visit Department of Urology in [address] [phone] Kennedi Dan APRN, C.N.P. [address] [phone] Health Maintenance Due Date Last Done Comments Depression Screening (Annual PHQ-2) 02/07/2023 DTaP,Tdap,and Td Vaccines (2 - Td or Tdap) 06/14/2023 06/13/2013, 05/13/2008 COVID-19 Vaccine (8 - 2023-2 5 season) 2023 12/07/2022, 08/27/2022, 10/26/2021, Additional history exists Influenza Vaccine (#1) 2023 , 10/26/2021, 10/30/2020, Additional history exists Creatinine Level (Kidney Fun ction Test) 08/04/2024 08/05/2023, 02/10/2023, 09/09/2022, Additional history exists Potassium Level 08/04/2024 08/05/2023, /0 05/2023, 08/27/2022, Additional history exists Sodium Level 08/04/2024 08/05/2023, 0 05/2023, 08/27/2022, Additional history exists Zoster Vaccines Completed 11/06/2018, 08/08, 02/11/2011 Pneumococcal vaccine (65+ years) Completed 08/27/2022, 07/03/2014, 05/22/2008, Additional history exists RSV vaccine - (32-3 6 weeks) or 60+ years Completed 12/07/2022 Fall Risk Screen (Annual) Completed 08/25/2023 Medical Devices Implanted Type Area Bus Driver Supervisor Device Identifier Shelf Expiration Date Model / Serial / Lot Infuse Bmp Xxsmall - [id number] Implanted:Qty: 1 on 10/26/2016 Bone or Tissue Other/Legacy - See Implant Description Other/Legacy - See Implant Description Description:Device Manufactu rer - [employer]. Body Location - Other. arthrodesis. Device Status Text - [id number]. Stimublast Dbm Gel 5cc - [id number] Implanted:Qty: 1 on 10/26/2016 Bone or Tissue Other/Legacy - See Implant Description Arthrex Description:Device Manufactu rer - Arthrex. Body Location - Other. arthrodesis. Device Status Text - [id number]. Stnt Synergy Art Rx3.5x16 - [id number] Implanted:Qty: 1 on 03/06/2018 by Farheen Branch M.D. at [facility] Cardiac Stent N/A: Coronary [employer] 12/07/2019 [id number] / / [id number] Description:pRCA Simmetry Screw 12.5mm X 80 - [id number] [id number] Implanted:Qty: 1 on 10/26/2016 Hardware e.g. pins/screws /rods Other/Legacy - See Implant Description Zyga Technology Description:Device Manufactu rer - [employer]. Body Location - Other. Right. Device Status Text - [id number]. Simmetry Washer 12.5mm - [id number] [id number] Implanted:Qty: 1 on 10/26/2016 Hardware e.g. pins/screws /rods Other/Legacy - See Implant Description Z[employer]ga Technology Description:Device Manufactu rer - [employer]. Body Location - Other. Right. Device Status Text - [id number]. Conversions - Default Historical Implant Device Implanted:10/26 (Quantity not on file) Misc Other Abdomen Description:Body Location - Abdominal. Device Status Text - MiscOther. mesh from hernia repair. Ocular Lens Ocular Lens Bilateral: Eye Procedures Procedure Name Priority Date/Time Associated Diagnosis Comments DERMATOLOGY IMAGE EXAM Routine 10/13/2023 12:00 AM CDT IR SUPRAPUBIC CATHETER PLACEMENT RAD - Routine (most inpatients and all outpatients) 08/25/2023 8:43 AM CDT Enlarged Prostate With Lower Urinary Tract Symptoms LDA ANE NON-SURGICAL AIRWAY Routine 08/25/2023 8:08 AM CDT INR, POCT, B Routine 08/25/2023 7:32 AM CDT CREATININE WITH EGFR, S/P Routine 09/09/2022 7:17 AM CDT Hematuria Gross BASIC METABOLIC PANEL, S/P Routine 07/31/2019 2:08 PM CDT Shortness Of Breath from Last 3 Months or Most Recently Relevant to Health Maintenance Results * cheek, left nasolabial fold 27 Electrodessication and curettag-Dermatology Image Exam (10/13/2023 12:00 AM CDT) Narrative IIMS - 10/13/2023 10:45 AM CDT This order has been created and auto-finalized to support the import of images acquired without order. The clinical documentation to support these images can be found on the encounter that produced images. Provider Not In System IMG NON RAD IMAGI NG PROCEDURES IIMS NA * IR Suprapubic Catheter Placement (08/25/2023 8:43 AM CDT) Anatomical Region Laterality Modality Abdomen, Pelvis, Vascular In terventional RST LOS, Vascular Interventional ARZ LOS, Vascular Interventional FLA LOS N/A X-Ray Angiography Impressions 08/25/2023 1:35 PM CDT Placement of a 16-[place] tip suprapubic catheter. Recommend routine exchange in [...] was used to dilate the tract. A 20-[place]ore[place] peel-away sheath was placed, and the 16-[place] suprapubic catheter was inserted into the bladder. [...] A 0.035 Nitrex wire was advanced through [id number] needle and curled within the urinary bladder. An 8 mm x 4 cm angioplasty balloon was used to dilate thetract. A 20-[place] peel-away sheath was placed, and the 16-Frenchsuprapubic [...] provided by Anesthesiology. IMPRESSION: Placement of a 16-[place] tip suprapubic catheter. Recommendroutine exchange in 3 months. EP Xochitl Aguillon APRN C.N.PBony, D.N.PBony IMG IR PROCEDURES * LDA ANE NON-SURGICAL AIRWAY (08/25/2023 8:08 AM CDT) Narrative Joan Howell APRN, CRNA DNAP - 08/25/2023 8:08 AM CDT Joan [...] POCT ORDERABLES - DEVICE POC RST [facility] [address] [place] [address], [place] PCED [facility] POC [address] [place] [address] from Last 3 Months Advance Directives For more information, please contact: [phone] Documents on File Type Date Recorded Patient Body Worker Expl anation Advance Directives 07/25/2016 12:00 AM Leg acy document. See document viewer. * Full Code (Latest Code Status on File) Date Activated Date Inactivated Comments 03/06/2018 2:36 PM 03/06/2018 9:26 PM Question Answer Comments Full Code: Not Discussed Due to: Patient not available Care Teams Manager Account Management Relationship Specialty Start Date End Date Elsewhere, Pcp PCP - General Family Medicine 06/08/22
--- OUTSIDE RECORDS SUMMARY | 2023-11-03 22:19 | XMS_ITS | Encounter Summary ---
Author Organization [facility] Address [address] [place] [phone] Care Team Providers Care Marina Manager Name Role Phone Elsewhere, Pcp Primary Care Provider Unavailabl e Reason for Visit * Reason Onset Date Comments Appt Request 10/04/2023 Encounter Details Date Type Department Care Team (Late st Contact Info) Description 10/04/2023 Clinical Communication Department of Urology in [place], [place] [address] [place] [phone] Wade Amanda M.D. [address] [place] [phone] Appt Request Social History Tobacco Use Types Packs/Day Years Used Date Smoking Tobacco: Former Cigarettes 1 25 0 02/08/1956 - 02/07/1981 Passive Smoke Exposure: Past Smokeless Tobacco: Never Chew Quit: 03/03/1981 Passive Exposure Comments:No t for Years Alcohol Use Standard Drinks/Week Comments Yes 7 (1 standard drink = 0.6 oz pur e alcohol) [facility] Utilities Answer Date Recorded In the past 12 months has [facility] [employer], gas, oil, or water [employer] threatened to shut off services in your [...] often do you attend chur ch or jehovah's witness services? More than 4 times per year [...] Answer Date Recorded PHQ-2 Score 0 09/21/2018 [facility] of Occupat ionin Health - Occupational Stress Questionnaire Answer Date [...] your living situation today? I have a [facility] place to live 06/22/2023 Education Answer Date Recorded What is the highest level of school you have completed or the highest degree you have received? 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 [address] [place] [phone] 11/10/2023 10:45 AM CDT Procedure visit Department of Urology in [place], [place] [address] [place] [phone] Wade Amanda M.D. [address] [place] [address] 12/12/2023 10:30 AM ARTILLERY OFFICER Office Visit Department of Urology in [place], [place] [address] [place] [phone] Kennedi Dan, EDDI, C.N.P. [address] [place] [phone] documented as of this encounter Visit Diagnoses Not on filedocumented in this encounter Care Teams Marina Manager Relationship Specialty Start Date End Date Elsewhere, Pcp PCP - General Family Medicine 06/08/22 documented as of this encounter
--- OUTSIDE RECORDS SUMMARY | 2023-11-03 22:19 | XMS_ITS | Encounter Summary ---
Author Organization [facility] Address [address] [place] [address] Care Team Providers Care Service Delivery Director Name Role Phone Elsewhere, Pcp Primary Care Provider Unavailabl e Reason for Visit * Reason Comments Catheter Care Plan Encounter Details Date Type Department Care Team (Late st Contact Info) Description 10/12/2023 Documentation Department of Urology in [place], [place] [address] [place] [phone] Wade Amanda M.D. [address] [place] [phone] Catheter Care Plan Social History Tobacco Use Types Packs/Day Years Used Date Smoking Tobacco: Former Cigarettes 1 25 0 02/08/1956 - 02/07/1981 Passive Smoke Exposure: Past Smokeless Tobacco: Never Chew Quit: 03/03/1981 Passive Exposure Comments:No t for Years Alcohol Use Standard Drinks/Week Comments Yes 7 (1 standard drink = 0.6 oz pur e alcohol) [facility] Utilities Answer Date Recorded In the past 12 months has e [employer], gas, oil, or water [employer] threatened to shut off services in your [...] often do you attend chur ch or sabianist services? More than 4 times per year [...] Answer Date Recorded PHQ-2 Score 0 09/21/2018 [facility] of Occupat ionnv Health - Occupational Stress Questionnaire Answer Date [...] your living situation today? I have a [facility] place to live 06/22/2023 Education Answer Date Recorded What is the highest level of school you have completed or the highest degree you have received? 12th grade 06/09/2022 Sex and Gender Information Value Date Recorded Sex Assigned at Male 01/03/2018 1:26 PM APPLICATIONS COORDINATOR Gender Identity Not on file Sexual Orientation Straight 01/03/2018 1: 26 PM APPLICATIONS COORDINATOR documented as of this encounter Progress Notes * Davina Hutson R.N. - 10/12/2023 11:04 AM CDT Treatment Summary and Care Plan - Catheter Exchange General Information [facility]/ Patient Name: Peña Reddy Date: 1935 Health Care Provider(s) Medical Provider(s) ELSEWHERE, PCP Institution: No address on file Urology Provider(s) Dr. Deepak Amanda Institution: [facility] Treatment Summary Diagnosis BPH; urge incontinence Treatment Surgery []Yes [x] No Surgery Date(s) Surgical Procedure/Location/Findings Current Treatment Information/Follow-up Care Plan Frequency of Catheter Changes (i.e. every 4 weeks) every 4 weeks Catheter Information Type: Bard lubricious Size:16F Reference #: [id number] Catheter Prescription Expires NA Last seen by Urology Provider 07/14/2023 Catheter Balloon Inflated to 10mL's Irrigation Needed []Yes [x]No Frequency: for verification of catheter placement if needed Amount: Continue to see your primary care provider for all general health care recommended for a man or woman your age, including ongoing catheter changes. Below are symptoms that should be brought to the attention of your local provider: A new, persistent, or worsening symptom Prepared By: Davina Hutson R.N. Date: 10/12/2023 documented in this encounter Plan of Treatment Upcoming Encounters Date Type Department Care Team (Late st Contact Info) Description 11/08/2023 9:15 AM CDT Clinical Communication Virtual Review in [place], [place] [address] [place] [phone] 11/10/2023 10:00 AM CDT Office Visit Department of Urology in [place], [place] [address] [place] [phone] Wade Amanda M.D. [address] [place] [phone] 11/10/2023 10:45 AM CDT Procedure visit Department of Urology in [place], [place] [address] [place] [phone] Wade Amanda M.D. [address] [place] [phone] 12/12/2023 10:30 AM APPLICATIONS COORDINATOR Office Visit Department of Urology in [place], [place] [address] [place] [phone] Kennedi Dan, EDDI, C.N.P. [address] [phone] documented as of this encounter Visit Diagnoses Not on filedocumented in this encounter Care Teams Service Delivery Director Relationship Specialty Start Date End Date Elsewhere, Pcp PCP - General Family Medicine 06/08/22 documented as of this encounter
--- OUTSIDE RECORDS SUMMARY | 2023-11-03 22:19 | XMS_ITS | Encounter Summary ---
Author Organization [facility] Address [address] [place] [address] Care Team Providers Care Express Clerk Name Role Phone Elsewhere, Pcp Primary Care Provider Unavailabl e Reason for Referral * Outpatient (Routine) - Closed Specialty Diagnoses / Procedures Referred By Alexander t Referred To Contact Vascular Medicine Diagnoses Coronary Stent Status Post Atrial Fibrillation Paroxysmal (HCC) Thrombosis Deep Vein Personal History Procedures Vascular Medicine - Thrombophilia periprocedural eConsult Wade Amanda M.D. [address] [place] [phone] [facility] Referral ID Status Reason Start Date Expiration Date Visits Re quested Visits Authorized [id number] Closed 07/27/2023 07/26/2024 1 1 Encounter Details Date Type Department Care Team (Late st Contact Info) Description 07/27/2023 Clinical Communication Department of Urology in [place], [place] [address] [place] [phone] Wade Amanda M.D. [address] [place] [phone] Social History Tobacco Use Types Packs/Day Years Used Date Smoking Tobacco: Former Cigarettes 1 25 0 02/08/1956 - 02/07/1981 Passive Smoke Exposure: Past Smokeless Tobacco: Never Chew Quit: 03/03/1981 Passive Exposure Comments:No t for Years Alcohol Use Standard Drinks/Week Comments Yes 7 (1 standard drink = 0.6 oz pur e alcohol) [facility] Utilities Answer Date Recorded In the [...] often do you attend chur ch or yarsani services? More than 4 times per year 06/09/2022 Do you belong to any clubs o r organizations such as religious groups, unions, fraternal or athletic groups, or [...] Answer Date Recorded PHQ-2 Score 0 09/21/2018 [facility] [place] of Occupat ional Health - Occupational Stress [...] your living situation today? I have a [facility] place to live 06/22/2023 Education Answer Date Recorded What is the highest level of school you have completed or the highest degree you have received? 12th grade 06/09/2022 Sex and Gender Information Value Date Recorded Sex Assigned at Male 01/03/2018 1:26 PM APPLICATIONS TESTER Gender Identity Not on file Sexual Orientation Straight 01/03/2018 1: 26 PM APPLICATIONS TESTER documented as of this encounter Miscellaneous Notes [...] AM CDT Clinical Communication Virtual Review in [place], [place] [address] [place] [phone] 11/10/2023 10:00 AM CDT Office Visit Department of Urology in [place], [place] [address] [place] [phone] Wade Amanda M.D. [address] [place] [phone] 11/10/2023 10:45 AM CDT Procedure visit Department of Urology in [place], [place] [address] [place] [phone] Wade Amanda M.D. [address] [place] [phone] 12/12/2023 10:30 AM APPLICATIONS TESTER Office Visit Department of Urology in [place], [place] 300 [place] [phone] Kennedi Dan APRN, C.N.P. [address] [phone] documented as of this encounter Visit Diagnoses Diagnosis Coronary Stent Status Post- Primary Atrial Fibrillation Paroxysmal (HCC) Thrombosis Deep Vein Personal History documented in this encounter Care Teams Express Clerk Relationship Specialty Start Date End Date Elsewhere, Pcp PCP - General Family Medicine 06/08/22 documented as of this encounter
--- OUTSIDE RECORDS SUMMARY | 2023-11-03 22:19 | XMS_ITS | Encounter Summary ---
Author Organization [facility] Address [address] [place] [address] Care Team Providers Care Business Support Coordinator Name Role Phone Elsewhere, Pcp Primary Care Provider Unavailabl e Encounter Details Date Type Department Care Team (Late st Contact Info) Description 08/17/2023 Clinical Communication Department of Radiology in [place], [place] [address] [place] [phone] Shima Markham, RBonyN. Social History Tobacco Use Types Packs/Day Years Used Date Smoking Tobacco: Former Cigarettes 1 25 0 02/08/1956 - 02/07/1981 Passive Smoke Exposure: Past Smokeless Tobacco: Never Chew Quit: 03/03/1981 Passive Exposure Comments:No t for Years Alcohol Use Standard Drinks/Week Comments Yes 7 (1 standard drink = 0.6 oz pur e alcohol) [facility] Utilities Answer Date Recorded In the past 12 months has [facility] [employer], gas, oil, or water [employer] threatened to shut off services in your [...] How often do you attend chur or orthodoxy services? More than 4 times per year 06/09/2022 Do you belong to any clubs o r organizations such as rastafarian groups, unions, fraternal or athletic groups, or [...] 09/21/2018 [facility] - Occupational Stress Questionnaire Answer Date [...] your living situation today? I have a [facility] place to live 06/22/2023 Education Answer Date Recorded What is the highest level of school you have completed or the highest degree you have received? 12th grade 06/09/2022 Sex and Gender Information Value Date Recorded Sex Assigned at Male 01/03/2018 1:26 PM CASEY SAW OPERATOR Gender Identity Not on file Sexual Orientation Straight 01/03/2018 1: 26 PM CASEY SAW OPERATOR documented as of this encounter Miscellaneous Notes * Telephone Encounter - Shima Markham R.N. - 08/17/2023 11:41 AM CDT Suprapubic catheter placement procedure rescheduled at [facility] on 08/25/[address] Thrasher. Report time 7:00 a.m. at [facility]. Patient informed to hold warfarin for 5 days prior to procedure per Thrombophilia recommendations. Requesting service to notify the patient of these appointments. documented in this encounter Plan of Treatment Upcoming Encounters Date Type Department Care Team (Late st Contact Info) Description 11/08/2023 9:15 AM CDT Clinical Communication Virtual Review in [place] [address] [place] [address] 11/10/2023 10:00 AM CDT Office Visit Department of Urology in [place], [place] [address] [place] [address] Wade Amanda M.D. [address] [place] [phone] 11/10/2023 10:45 AM CDT Procedure visit Department of Urology in [place], [place] [address] [place] [address] Wade Amanda M.D. [address] [place] [address] 12/12/2023 10:30 AM CASEY SAW OPERATOR Office Visit Department of Urology in [place], [place] [address] [place] [phone] Kennedi Dan, EDDI, C.N.P. [address] [phone] documented as of this encounter Visit Diagnoses Not on filedocumented in this encounter Care Teams Business Support Coordinator Relationship Specialty Start Date End Date Elsewhere, Pcp PCP - General Family Medicine 06/08/22 documented as of this encounter
--- OUTSIDE RECORDS SUMMARY | 2023-11-03 22:19 | XMS_ITS ---
Author Organization [facility] Address [address] [place] [address] Care Team Providers Care Television Antenna Installer Name Role Phone Unavailable Unavailable Unavailable Surgery Details Not on file Complications Check Surgery Details section. Procedure Estimated Blood Loss Check Surgery Details section. Procedure Findings Check Surgery Details section. Procedure Specimens Taken Check Surgery Details section.
--- OUTSIDE RECORDS SUMMARY | 2023-11-03 22:19 | XMS_ITS | Encounter Summary ---
Author Organization [facility] Address [address] [place] [address] Care Team Providers Care Belt And Link Assembly Supervisor Name Role Phone Elsewhere, Pcp Primary Care Provider Unavailabl e Encounter Details Date Type Department Care Team (Late st Contact Info) Description 10/12/2023 Clinical Communication Department of Urology in [place], [place] [address] [place] [phone] Wade Amanda M.D. [address] [place] [phone] Social History Tobacco Use Types Packs/Day Years Used Date Smoking Tobacco: Former Cigarettes 1 25 0 02/08/1956 - 02/07/1981 Passive Smoke Exposure: Past Smokeless Tobacco: Never Chew Quit: 03/03/1981 Passive Exposure Comments:No t for Years Alcohol Use Standard Drinks/Week Comments Yes 7 (1 standard drink = 0.6 oz pur e alcohol) [facility] Utilities Answer Date Recorded In the past 12 months has [employer] gas, oil, or water [facility] threatened to shut off services in your [...] How often do you attend chur or congregation services? More than 4 times [...] Date Recorded PHQ-2 Score 0 09/21/2018 [facility] of Occupat ional [facility] - Occupational Stress Questionnaire Answer Date Recorded [...] living situation today? I have a [facility] place to live 06/22/2023 Education Answer Date Recorded What is the highest level of school you have completed or the highest degree you have received? 12th grade 06/09/2022 Sex and Gender Information Value Date Recorded Sex Assigned at Male 01/03/2018 1:26 PM SCRUB TECHNICIAN Gender Identity Not on file Sexual Orientation Straight 01/03/2018 1: 26 PM SCRUB TECHNICIAN documented as of this encounter Miscellaneous Notes * Telephone Encounter - Davina Hutson, RBonyN. - 10/12/2023 11:12 AM CDT Suprapubic catheter Patient's suprapubic catheter was last changed in Urology on 10/11/2023 without difficulty. The patient meets inclusion criteria for transitioning catheter cares. The patient would like to transitionhis cares to the [facility]. Please see the catheter care plan in the documentation encounterdated 10/12/2023. Please review and contact patient for scheduling the appropriate appointments. Please let us know if you have any questions or need more information. documented in this encounter Plan of Treatment Upcoming Encounters Date Type Department Care Team (Late st Contact Info) Description 11/08/2023 9:15 AM CDT Clinical Communication Virtual Review in [place], [place] [address] [place] [address] 11/10/2023 10:00 AM CDT Office Visit Department of Urology in [place], [place] [address] [place] [phone] Wade Amanda M.D. [address] [place] [phone] 11/10/2023 10:45 AM CDT Procedure visit Department of Urology in [place], [place] [address] [place] [address] Wade Amanda M.D. [address] [place] [phone] 12/12/2023 10:30 AM SCRUB TECHNICIAN Office Visit Department of Urology in [place], [place] [address] [place] [phone] Kennedi Dan, EDDI, C.N.P. [address] [place] [phone] documented as of this encounter Visit Diagnoses Not on filedocumented in this encounter Care Teams Belt And Link Assembly Supervisor Relationship Specialty Start Date End Date Elsewhere, Pcp PCP - General Family Medicine 06/08/22 documented as of this encounter
--- OUTSIDE RECORDS SUMMARY | 2023-11-03 22:19 | XMS_ITS | Referral Summary ---
Author Organization [facility] Address [address] [place] [address] Care Team Providers Care Nuclear Operations Specialist Name Role Phone Elsewhere, Pcp Primary Care Provider Unavailabl e Source Comments Patient records contain information from all sites at [facility]. For routine questions regarding patient records, call [phone] during business hours, M-F 8:00 AM - 5:00 PM Central Time. Record requests for emergency care only can be directed to [phone] at any time.[facility] Encounters Date Type Department Care Team Description 10/13/2023 Ancillary Procedure Department of Dermatology 10/13/2023 8:30 AM CDT Procedure visit Department of Dermatology in [place], [place] [address] [place] [phone] Antolin Ibrahim M.D. Squamous Cell Carcinoma In Situ Discharge Disposition: Home or Self Care 10/12/2023 Clinical Communication Department of Urology in [place], [place] [address] [place] [phone] Wade Amanda M.D. 10/12/2023 Documentation Department of Urology in [place], [place] [address] [place] [phone] Wade Amanda M.D. Catheter Care Plan 10/11/2023 10:00 AM CDT Procedure visit Department of Urology in [place], [place] [address] [place] [phone] Wade Amanda M.D. Pingel, Kim M, L.P.N. 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 Appt Request 08/25/2023 7:59 AM CDT Anesthesia Event Department of Radiology in [address] [phone] Joan Howell APRN, EMERGENCY COMMUNICATIONS DISPATCHER, DNAP Mary Montano M.D. 08/25/2023 6:30 AM CDT - 08/25/2023 10:37 AM CDT Hospital Encounter Department of Radiology in [place], [place] [address] [place] [phone] Xochitl Aguillon APRN, C.N.P., D.N.P. Jonathan Thrasher M.D. Isaac, Onyedika P, M.D. Discharge Disposition: Home or Self Care 08/17/2023 Clinical Communication Department of Radiology in [address] [phone] Shima Markham RPablo 08/05/2023 Clinical Communication Department of Urology in [place], [place] [address] [place] [phone] Wade Amanda M.D. 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 Resolved Problems Problem Noted Date Diagnosed Date Resolved Date Dyspnea On Exertion 02/24/2018 09/11/19 23 Overview (02/24/2018): Added automatically from request for surgery [id number] Shortness Of Breath 12/27/2017 09/11/19 23 Immunizations [...] trivalent vaccine (6 months and older)(PF) 10/13/2019 Social History Tobacco Use Types Packs/Day Years Used Date Smoking Tobacco: Former Cigarettes 1 25 0 02/08/1956 - 02/07/1981 Passive Smoke Exposure: Past Smokeless Tobacco: Never Chew Quit: 03/03/1981 Tobacco Cessation:Counseling Given: Not Answered Passive Exposure Comments:Not for Years Alcohol Use Standard Drinks/Week Comments Yes 7 (1 standard drink = 0.6 oz pur e alcohol) [facility] Utilities Answer Date Recorded In the [...] any clubs o r organizations such as catholic groups, unions, fraternal or athletic groups, or [...] Answer Date Recorded PHQ-2 Score 0 09/21/2018 [facility] of Occupat ional Health - Occupational Stress [...] Sex Assigned at Male 01/03/2018 1:26 PM HEALTH ASSISTANT Gender Identity Not on file Sexual Orientation Straight 01/03/2018 1: 26 PM HEALTH ASSISTANT Last Filed Vital Signs Vital Sign Reading [...] AM CDT Clinical Communication Virtual Review in [place], [place] [address] [place] [address] 11/10/2023 10:00 AM CDT Office Visit Department of Urology in [place], [place] [address] [place] [phone] Wade Amanda M.D. [address] [place] [phone] 11/10/2023 10:45 AM CDT Procedure visit Department of Urology in [place], [place] [address] [place] [phone] Wade Amanda M.D. [address] [place] [phone] 12/12/2023 10:30 AM HEALTH ASSISTANT Office Visit Department of Urology in [address] [phone] Kennedi Dan, EDDI, C.N.P. [address] [place] [phone] Medical Devices Implanted Type Area Recording Artist Device Identifier Shelf Expiration Date Model / Serial / Lot Infuse Bmp Xxsmall - [id number] [id number] Implanted:Qty: 1 on 10/26/2016 Bone or Tissue Other/Legacy - See Implant Description Other/Legacy - See Implant Description Description:Device Manufactu rer - Sofchriss Danek. Body Location - Other. arthrodesis. Device Status Text - [id number]. Stimublast Dbm Gel 5cc - Rosado [id number] Implanted:Qty: 1 on 10/26/2016 Bone or Tissue Other/Legacy - See Implant Description Arthrex Description:Device Manufactu rer - Arthrex. Body Location - Other. arthrodesis. Device Status Text - [id number]. Stnt Synergy Art Rx3.5x16 - [id number] Implanted:Qty: 1 on 03/06/2018 by Farheen Branch M.D. at [facility] Cardiac Stent N/A: Coronary Pro[employer]ix Scientific 12/07/2019 [id number] / / [id number] Description:pRCA Simmetry Screw 12.5mm X 80 - Rosado [id number] Implanted:Qty: 1 on 10/26/2016 Hardware e.g. pins/screws /rods Other/Legacy - See Implant Description Zyga Technology Description:Device Manufactu rer - Nanocomp [employer] Inc. Body Location - Other. Right. Device Status Text - [id number]. Simmetry Washer 12.5mm - Rosado [id number] Implanted:Qty: 1 on 10/26/2016 Hardware e.g. pins/screws /rods Other/Legacy - See Implant Description Zyga Technology Description:Device Manufactu rer - [employer]etics Technologies [employer] Inc. Body Location - Other. Right. Device Status Text - [id number]. Conversions - Default Historical Implant Device Implanted:10/26 [...] 08/25/2023 1:35 PM CDT Placement of a 16-Belarusian [place] tip suprapubic catheter. Recommend routine exchange in [...] was used to dilate the tract. A 20-Belarusian peel-away sheath was placed, and the 16-Belarusian suprapubic catheter was inserted into the bladder. [...] A 0.035 Nitrex wire was advanced through [id number] needle and curled within the urinary bladder. An 8 mm x 4 cm angioplasty balloon was used to dilate thetract. A 20-Belarusian peel-away sheath was placed, and the 16-Frenchsuprapubic [...] provided by Anesthesiology. IMPRESSION: Placement of a 16-Belarusian [place] tip suprapubic catheter. Recommendroutine exchange in 3 months. EP Xochitl Aguillon APRN, C.N.P., D.N.P. IMG IR PROCEDURES * LDA ANE NON-SURGICAL AIRWAY (08/25/2023 8:08 AM CDT) Narrative Joan Howell APRN, CRNA, DNAP - 08/25/2023 8:08 AM CDT Joan Howell APRN, CRNA DNAP ? 08/25/2023 ??8:17 AM Airway Date/Time: 08/25/2023 8:08 AM Performed by: Joan Howell APRN, CRNA, DNAP Authorized by: Joan Howell APRN, CRNA DNAHiginio [...] ?? Notable Events: no complications Joan Howell [employer] SALES MANAGER, EMERGENCY COMMUNICATIONS DISPATCHER, DNAP ANESTHES IA ORDERABLES * INR, POCT (08/25/2023 7:32 AM CDT) INR, POCT, B 1.2 08/25/2023 8:00 AM CDT PCED Comment: ----ADDITIONAL INFORMATION---- Standard intensity warfarin therapeutic range: 2.0 to 3.0 ?? High intensity warfarin therapeutic range: 2.5 to 3.5 Blood 08/25/2023 7:32 AM CDT 08/25/2023 8:00 AM CDT Unknown Provider LAB POCT ORDERABLES - DEVICE Performing Organization Address City/State/[facility] Co de Phone Number POC [facility] OUT[facility] [address] [place] [address], [facility] PCED [facility] POC [address] [place] [address] from Last 3 Months Advance Directives For more information, please contact: [phone] Documents on File Type Date Recorded Patient Process Supervisor Expl anation Advance Directives 07/25/2016 12:00 AM Leg acy document. See document viewer. * Full Code (Latest Code Status on File) Date Activated Date Inactivated Comments 03/06/2018 2:36 PM 03/06/2018 9:26 PM Question Answer Comments Full Code: Not Discussed Due to: Patient not available Care Teams Nuclear Operations Specialist Relationship Specialty Start Date End Date Elsewhere, Pcp PCP - General Family Medicine 06/08/22
--- OUTSIDE RECORDS SUMMARY | 2023-11-03 22:19 | XMS_ITS | Encounter Summary ---
Author Organization [facility] Address [address] [place] [address] Care Team Providers Care Grease Packer Name Role Phone Elsewhere, Pcp Primary Care Provider Unavailabl e Encounter Details Date Type Department Care Team (Late st Contact Info) Description 10/13/2023 Ancillary Procedure Department of Dermatology Social History Tobacco Use Types Packs/Day Years Used Date Smoking Tobacco: Former Cigarettes 1 25 0 02/08/1956 - 02/07/1981 Passive Smoke Exposure: Past Smokeless Tobacco: Never Chew Quit: 03/03/1981 Passive Exposure Comments:No t for Years Alcohol Use Standard Drinks/Week Comments Yes 7 (1 standard drink = 0.6 oz pur e alcohol) [facility] Utilities Answer Date Recorded In the past 12 months has e [employer], gas, oil, or water [employer] threatened to shut off services in your [...] often do you attend chur ch or alevism services? More than 4 times per year 06/09/2022 Do you belong to any clubs o r organizations such as jainism groups, unions, fraternal or athletic groups, or [...] Date Recorded PHQ-2 Score 0 09/21/2018 [facility] of Occupat ional Health - Occupational [...] Sex Assigned at Male 01/03/2018 1:26 PM OPTICIAN APPRENTICE Gender Identity Not on file Sexual Orientation Straight 01/03/2018 1: 26 PM OPTICIAN APPRENTICE documented as of this encounter Plan of Treatment Upcoming Encounters Date Type Department Care Team (Late st Contact Info) Description 11/08/2023 9:15 AM CDT Clinical Communication Virtual Review in [place], [place] [address] [place] [address] 11/10/2023 10:00 AM CDT Office Visit Department of Urology in [place], [place] [address] [place] [phone] Wade Amanda M.D. [address] [place] [phone] 11/10/2023 10:45 AM CDT Procedure visit Department of Urology in [place], [place] [address] [place] [phone] Wade Amanda M.D. [address] [place] [phone] 12/12/2023 10:30 AM OPTICIAN APPRENTICE Office Visit Department of Urology in [address] [phone] Kennedi Dan APRN, C.N.P. [address] [phone] documented as of this encounter Procedures Procedure Name Priority Date/Time Associated Diagnosis Comments DERMATOLOGY IMAGE EXAM Routine 10/13/2023 12:00 AM CDT documented in this encounter Results * cheek, left nasolabial fold 27 [...] NON RAD IMAGI NG PROCEDURES IIMS NA documented in this encounter Visit Diagnoses Not on filedocumented in this encounter Care Teams Grease Packer Relationship Specialty Start Date End Date Elsewhere, Pcp PCP - General Family Medicine 06/08/22 documented as of this encounter
--- OUTSIDE RECORDS SUMMARY | 2023-11-03 22:19 | XMS_ITS | Encounter Summary ---
Author Organization [facility] Address [address] [place] [address] Care Team Providers Care Chlorine Cells Operator Name Role Phone Elsewhere, Pcp Primary Care Provider Unavailabl e Reason for Visit * Outpatient (Routine) - Closed Specialty Diagnoses / Procedures Referred By Alexander ridley Referred To Contact Vascular Medicine Diagnoses Coronary Stent Status Post Atrial Fibrillation Paroxysmal (HCC) Thrombosis Deep Vein Personal History Procedures Vascular Medicine - Thrombophilia periprocedural eConsult Wade Amanda M.D. [address] [place] [phone] [facility] Referral ID Status Reason Start Date Expiration Date Visits Re quested Visits Authorized [id number] Closed 07/27/2023 07/26/2024 1 1 Encounter Details Date Type Department Care Team (Latest Contact Info) Description 07/29/2023 1:00 PM CDT Internal E-Consult Department of Vascular Medicine in [place], [place] [address] [place] [phone] María Thomas APRN, C.N.P., M.S. [address] [place] [phone] Coronary Stent Status Post; Atrial Fibrillation Paroxysmal [...] drink = 0.6 oz pur e alcohol) [facility] Utilities Answer Date Recorded In the past [...] often do you attend chur ch or buddhist services? More than 4 times per year 06/09/2022 Do you belong to any clubs o r organizations such as mormon groups, unions, fraternal or athletic groups, or [...] Answer Date Recorded PHQ-2 Score 0 09/21/2018 [facility] of Occupat ional Health - [...] your living situation today? I have a [facility] place to live 06/22/2023 Education Answer Date Recorded What is the highest level of school you have completed or the highest degree you have received? 12th grade 06/09/2022 Sex and Gender Information Value Date Recorded Sex Assigned at Male 01/03/2018 1:26 PM LUMITE INJECTOR Gender Identity Not on file Sexual Orientation Straight 01/03/2018 1: 26 PM LUMITE INJECTOR documented as of this encounter Consult Notes [...] based entirely upon information available in the [facility] electronic medical record. Clinical question to be [...] minutes or more of medical review. Ask Thurmond Expert periprocedural anticoagulation calculator [email or web address] documented in this encounter Plan of Treatment Upcoming Encounters Date Type Department Care Team (Late st Contact Info) Description 11/08/2023 9:15 AM CDT Clinical Communication Virtual Review in [place], [place] [address] [place] [address] 11/10/2023 10:00 AM CDT Office Visit Department of Urology in [place], [place] [address] [place] [phone] Wade Amanda M.D. [address] [place] [phone] 11/10/2023 10:45 AM CDT Procedure visit Department of Urology in [place], [place] [address] [place] [phone] Wade Amanda M.D. [address] [place] [phone] 12/12/2023 10:30 AM LUMITE INJECTOR Office Visit Department of Urology in [place] [address] [place] [phone] Kennedi Dan APRN, C.N.P. [address] [phone] documented as of this encounter Visit Diagnoses Diagnosis Coronary Stent Status Post Atrial Fibrillation Paroxysmal (HCC) Thrombosis Deep Vein Personal History documented in this encounter Care Teams Chlorine Cells Operator Relationship Specialty Start Date End Date Elsewhere, Pcp PCP - General Family Medicine 06/08/22 documented as of this encounter
--- OUTSIDE RECORDS SUMMARY | 2023-11-03 22:19 | XMS_ITS | Encounter Summary ---
Author Organization [facility] Address [address] [place] [address] Care Team Providers Care Manager Cosmetic Name Role Phone Elsewhere, Pcp Primary Care Provider Unavailabl e Reason for Referral * Outpatient (Routine) - Authorized Specialty Diagnoses / Procedures Referred By Alexander ridley Referred To Contact Dermatology Diagnoses Squamous Cell Carcinoma In Situ Shine Baxter M.D. 200 [place] [phone] [facility] Referral ID Status Reason Start Date Expiration Date V isits Requested Visits Authorized [id number] Authorized 10/13/2023 04/13/2025 1 1 Reason for Visit * Outpatient (Routine) - Closed Specialty Diagnoses / Procedures Referred By Alexander ridley Referred To Contact Dermatology Diagnoses Squamous Cell Carcinoma In Situ Procedures RICCI MOHS 1-4 sites Matilda Ding M.D. [facility] Referral ID Status Reason Start Date Expiration Date Visits Re quested Visits Authorized [id number] Closed 06/15/2023 06/14/2024 1 1 Encounter Details Date Type Department Care Team (Latest Contact Info) Description 10/13/2023 8:30 AM CDT Procedure visit Department of Dermatology in [place], [place] [address] [place] [phone] Antolin Ibrahim M.D. [address] [place] [phone] Squamous Cell Carcinoma In Situ Discharge Disposition: Home or Self Care Social History Tobacco Use Types Packs/Day Years Used Date Smoking Tobacco: Former Cigarettes 1 25 0 02/08/1956 - 02/07/1981 Passive Smoke Exposure: Past Smokeless Tobacco: Never Chew Quit: 03/03/1981 Passive Exposure Comments:No t for Years Alcohol Use Standard Drinks/Week Comments Yes 7 (1 standard drink = 0.6 oz pur e alcohol) [facility] Utilities Answer Date Recorded In the past 12 months has e [email or web address], gas, oil, or water [employer] threatened to shut off services in your [...] week 06/09/2022 How often do you attend [facility] or mandaen services? More than 4 times per year 06/09/2022 Do you belong to any clubs o r organizations such as yazdanism groups, unions, fraternal or athletic groups, or [...] Answer Date Recorded PHQ-2 Score 0 09/21/2018 [facility] - Occupational Stress Questionnaire Answer [...] Sex Assigned at Male 01/03/2018 1:26 PM HEAVY MEDIA OPERATOR Gender Identity Not on file Sexual Orientation Straight 01/03/2018 1: 26 PM HEAVY MEDIA OPERATOR documented as of this encounter Last Filed Vital Signs Vital Sign Reading Time Taken Comments Blood Pressure 114/63 10/13/2023 8:32 AM CDT Pulse 68 10/13/2023 8:32 AM CDT Temperature - - Respiratory Rate - - Oxygen Saturation - - Inhaled Oxygen Concentration - - Weight - - Height - - Body Mass Index - - documented in this encounter Consult Notes * Braden Friedman M.D. - 10/13/2023 8:30 AM CDT DERMATOLOGIC SURGERY CONSULTATION NOTE PATIENT NAME: Peña Reddy DATE OF : 1935, 88 y.o. DATE: 10/13/2023 STAFF PHYSICIAN: Dr. Antolin Ibrahim M.D. SUBJECTIVE CHIEF COMPLAINT/REASON FOR VISIT SCCIS on the left melolabial fold HISTORY OF PRESENT ILLNESS Peña Reddy is a 88 y.o. male presents today in referral from Matilda Ding M.D. for the below biopsy proven tumor(s), see pathology report. Pathology result: FINAL DIAGNOSIS A. Left Melolabial Fold, Skin shave biopsy: Squamous cell carcinoma in situ, involving biopsy borders REVIEW OF SYSTEMS History of skin cancer ROS QUESTION YES NO Prior skin cancer [x] [] Prior melanoma [] [x] Organ Systems Heart disease/Heart Valve/Murmur [x] [] Pacemaker [] [x] Defibrillator [] [x] Lung disease or conditions [x] [] Liver Disease [] [x] Stroke/Seizure/Dementia [] [x] Cancer: [x] [] ID [] [x] Diabetes [] [x] Insulin dependent? [] [x] Organ Transplant: [] [x] Bleeding or healing problems [] [x] Blood Thinners Aspirin [] [x] Coumadin/Warfarin [x] [] Plavix [] [x] Others [] [x] Hypertension [x] [] Implants: [] [x] Habits Tobacco [] [x] Alcohol [] [x] The dermatologic surgery preoperative sheet was reviewed today in detail. CURRENT MEDICATIONS The medications for today's visit were reviewed OBJECTIVE VITALS SIGNS BP 114/63 Pulse 68 PHYSICAL EXAMINATION General: well appearing male in no acute distress Skin: Focused skin examination was performed today of the surgical site(s) revealing erythematous scar, consistent with prior biopsy site(s), on the left melolabial fold. DIAGNOSTICS REVIEW OF MEDICAL CHART: A review of the patient's medical chart and any referral form(s) was performed. I personally reviewed the patient's histopathology from the biopsy slides, and my impression is listed below in the assessment and plan. 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 We reviewed the diagnosis(es)/indication(s) and treatment options. We had a discussion regarding treatment options, including have Mohs surgery would provide the highest cure rate possible as well as the best long-term cosmetic o utcome given size and anatomic location of the lesion. We also discussed topical treatment with 5 fluorouracil, which the patient adamantly refused. Electrodesiccation and curettage was also offered,with the understanding that the long-term cosmetic outcome and cure rate would be suboptimal compared to Mohs surgery. Patient elects for electrodesiccation and curettage after discussion. We reviewed associated risks, benefits, and alternatives. Risks included bleeding, infection, scar, recurrence, large wound, dehiscence, and sensation loss. Natural history of scar and expectations reviewed. After discussion, the patient consented to proceed. All questions were answered. PROCEDURE: Electrodessication and Curretage -LOCATION: Left melolabial fold -PREOPERATIVE SIZE: 0.8 x 1.3 -Post Op Size: 1.5 x 1.7 -ANESTHESIA: 1% lidocaine with 1:200,000 epinephrine -Prior to proceeding, risks of the procedure were discussed including pain, infection, bleeding, scarring, and recurrence. The patient is aware that the recurrence rate may be higher for electrodessication and curettage than surgery. However, electrodessication and curettage does not limit activities, and no sutures are required. After discussion, the patient elected to proceed. -The operative site was cleaned with alcohol. The lesion was curetted and electro-dessicated 3 times in 3 different directions. -The patient tolerated the procedure well without any complications. Petrolatum ointment was applied and the wound was bandaged. Oral and written wound care instructions were demonstrated and given to the patient. Follow up 12 months for full skin exam, sooner if needed for wound related issues. Braden Friedman M.D. Associated attestation - Antolin Ibrahim M.D. - 10/13/2023 1:41 PM CDT I saw and evaluated the patient, participating in the ross elements of the service. I discussed the findings, assessment and plan with the resident/fellow and agree with resident/fellow???s findings and plan as documented in the resident/fellow's note. I was immediately available for the entirety ofthe procedure(s) and present for the ross and critical portions. Antolin Ibrahim M.D. documented in this encounter Plan of Treatment Upcoming Encounters Date Type Department Care Team (Late st Contact Info) Description 11/08/2023 9:15 AM CDT Clinical Communication Virtual Review in [place], [place] 200 [place] [phone] 11/10/2023 10:00 AM CDT Office Visit Department of Urology in [place], [place] [address] [place] [phone] Wade Amanda M.D. [address] [place] [phone] 11/10/2023 10:45 AM CDT Procedure visit Department of Urology in [place], [place] [address] [place] [phone] Wade Amanda M.D. [address] [place] [phone] 12/12/2023 10:30 AM HEAVY MEDIA OPERATOR Office Visit Department of Urology in [address] [phone] Kennedi Dan APRN, C.N.P. [address] [phone] Scheduled Referrals Name Type Priority Associated Diagnoses Order Schedule Dermatology office visit (clinic) Outpatient Referral Routine Squamous Cell Carcinoma In Situ Expected: 10/12/2024 (Approximate), Expires: 01/11/2025 documented as of this encounter Visit Diagnoses Diagnosis Squamous Cell Carcinoma In Situ documented in this encounter Administered Medications Inactive Administered Medications - up to 3 most recent administrations Medication Order MAR Action Action Date Dose Rate Site lidocaine-EPINEPHrine 1%-1:200,000 injection 2-50 mL (Xylocaine w/epi) 2-50 mL, injection, As needed, may repeat if the patient complains of pain/discomfort at the site up to 50 mL for entire procedure, Starting on Christelle 10/13/23 at 0844, For 1 day Given 10/13/2023 9:01 AM CDT 5 mL documented in this encounter Care Teams Manager Cosmetic Relationship Specialty Start Date End Date Elsewhere, Pcp PCP - General Family Medicine 06/08/22 documented as of this encounter
--- OUTSIDE RECORDS SUMMARY | 2023-11-03 22:19 | XMS_ITS | Encounter Summary ---
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 [address] [place] [phone] [facility] Referral ID Status Reason Start Date Expiration Date Visits Re quested Visits Authorized [id number] Closed 07/14/2023 07/13/2024 1 1 Encounter Details Date Type Department Care Team (Late st Contact Info) Description 08/25/2023 6:30 AM CDT - 08/25/2023 10:37 AM CDT Hospital Encounter Department of Radiology in [place], [place] [address] [place] [phone] Xochitl Aguillon APRN, C.N.P., D.N.P. [address] [place] [phone] Jonathan Thrasher M.D. [address] [place] [address] [phone] Rocio Mckinnon M.D. [address] [place] [phone] Discharge Disposition: Home or Self Care Social History Tobacco Use Types Packs/Day Years Used Date Smoking Tobacco: Former Cigarettes 1 25 0 02/08/1956 - 02/07/1981 Passive Smoke Exposure: Past Smokeless Tobacco: Never Chew Quit: 03/03/1981 Passive Exposure Comments:No t for Years Alcohol Use Standard Drinks/Week Comments Yes 7 (1 standard drink = 0.6 oz pur e alcohol) [facility] Utilities Answer Date Recorded In the past 12 months has th e [employer], gas, oil, or water [employer] threatened to shut off services in your [...] Answer Date Recorded PHQ-2 Score 0 09/21/2018 [facility] - Occupational Stress Questionnaire Answer Date [...] Sex Assigned at Male 01/03/2018 1:26 PM HABITAT CONSERVATION PLANNER Gender Identity Not on file Sexual Orientation Straight 01/03/2018 1: 26 PM HABITAT CONSERVATION PLANNER documented as of this encounter Last Filed [...] Care Everywhere. * Long-Term Suprapubic Catheter Care (Belarusian) documented in this encounter Medications at Time [...] for cares/exchanges. Please page VIR NPPA at [phone] M-F 7AM-5PM or on-call resident at [phone] after 5PM and weekends. documented in this [...] AM CDT Clinical Communication Virtual Review in [place] [address] [place] [phone] 11/10/2023 10:00 AM CDT Office Visit Department of Urology in [place], [place] [address] [place] [phone] Wade Amanda M.D. [address] [place] [phone] 11/10/2023 10:45 AM CDT Procedure visit Department of Urology in [place], [place] [address] [place] [phone] Wade Amanda M.D. [address] [place] [phone] 12/12/2023 10:30 AM HABITAT CONSERVATION PLANNER Office Visit Department of Urology in [place], [place] [address] [place] [phone] Kennedi Dan APRN, C.N.P. [address] [phone] documented as of this encounter Procedures Procedure [...] LAB POCT ORDERABLES - DEVICE POC [facility] [address] [place] [address], [facility] [address] [place] [address] documented in this encounter Visit Diagnoses Not [...] 0745 (Given - Provid er: Roland López RBonyN.) Lactated Ringer's bolus 500 mL (COMPLETED) 500 mL, intravenous, at 500 mL/hr, Administer over 1 Hours, Once, On Christelle 08/25/23 at 0745, For 1 dose, Preprocedure (RAD) 0722 (New Bag - Prov ider: Roland López RBonyNBony) PRN Medication Order 08/23/2023 08/24/2023 08/25/2023 acetaminophen [...] prochlorperazine). documented in this encounter Care Teams Buzzsaw Operator Helper Relationship Specialty Start Date End Date Elsewhere, Pcp PCP - General Family Medicine 06/08/22 documented as of this encounter
--- OUTSIDE RECORDS SUMMARY | 2023-11-03 22:19 | XMS_ITS | Encounter Summary ---
Author Organization [facility] Address [address] [place] [address] Care Team Providers Care Criminal Justice Professor Name Role Phone Elsewhere, Pcp Primary Care Provider Unavailabl e Reason for Referral * Outpatient (Routine) - Closed Specialty Diagnoses / Procedures Referred By Alexander ridley Referred To Contact Pulmonary Medicine Diagnoses Restrictive Lung Disease Dyspnea On Exertion Abel Gomez M.D. [address] [place] [phone] [facility] Referral ID Status Reason Start Date Expiration Date Visits Re quested Visits Authorized [id number] Closed 11/09/2017 11/09/2018 1 1 Encounter Details Date Type Department Care Team (Late st Contact Info) Description 11/09/2017 [facility] [address] [place] [address] Abel Gomez M.D. [address] [place] [phone] Restrictive Lung Disease (Primary Dx); Dyspnea On Exertion Social History Tobacco Use Types Packs/Day Years Used Date Smoking Tobacco: Former Sex and Gender Information Value Date Recorded Sex Assigned at Male 01/03/2018 1:26 PM BANQUET ATTENDANT Gender Identity Not on file Sexual Orientation Straight 01/03/2018 1: 26 PM BANQUET ATTENDANT documented as of this encounter Plan of Treatment Upcoming Encounters Date Type Department Care Team (Late st Contact Info) Description 11/08/2023 9:15 AM CDT Clinical Communication Virtual Review in [place], [place] [address] [place] [phone] 11/10/2023 10:00 AM CDT Office Visit Department of Urology in [place], [place] [address] [place] [phone] Wade Amanda M.D. [address] [place] [phone] 11/10/2023 10:45 AM CDT Procedure visit Department of Urology in [place], [place] [address] [place] [phone] Wade Amanda M.D. [address] [place] [phone] 12/12/2023 10:30 AM BANQUET ATTENDANT Office Visit Department of Urology in [address] [phone] Kennedi Dan, EDDI, C.N.P. [address] [phone] Scheduled Referrals Name Type Priority Associated Diagnoses Orde r Schedule Pulmonary Medicine Referral Outpatient Referral Routine Restrictive Lung Disease Dyspnea On Exertion Expected: 11/09/2017 (Approximate), Expires: 11/09/2020 documented as of this encounter Visit Diagnoses Diagnosis Restrictive Lung Disease- Primary Dyspnea On Exertion documented in this encounter Care Teams Criminal Justice Professor Relationship Specialty Start Date End Date Elsewhere, Pcp PCP - General Family Medicine 06/08/22 documented as of this encounter
--- OUTSIDE RECORDS SUMMARY | 2023-11-03 22:19 | XMS_ITS | Encounter Summary ---
Author Organization [facility] Address [address] [place] [address] Care Team Providers Care Seed Corn Manager Production Name Role Phone Elsewhere, Pcp Primary Care Provider Unavailabl e Reason for Visit * Reason Onset Date Comments Procedure 07/14/2023 Encounter Details Date Type Department Care Team (Late st Contact Info) Description 07/14/2023 Clinical Communication Department of Radiology in [place], [place] [address] [place] [phone] Kat Stewart, RBonyN. Procedure Social History Tobacco Use Types Packs/Day Years Used Date Smoking Tobacco: Former Cigarettes 1 25 0 02/08/1956 - 02/07/1981 Passive Smoke Exposure: Past Smokeless Tobacco: Never Chew Quit: 03/03/1981 Passive Exposure Comments:No t for Years Alcohol Use Standard Drinks/Week Comments Yes 7 (1 standard drink = 0.6 oz pur e alcohol) [facility] Utilities Answer Date Recorded In the past 12 months has [facility] [employer], gas, oil, or water [employer] threatened to shut off services in your [...] How often do you attend chur or synagogue services? More than 4 times per year [...] Answer Date Recorded PHQ-2 Score 0 09/21/2018 [facility] - [...] your living situation today? I have a [facility] place to live 06/22/2023 Education Answer Date Recorded What is the highest level of school you have completed or the highest degree you have received? 12th grade 06/09/2022 Sex and Gender Information Value Date Recorded Sex Assigned at Male 01/03/2018 1:26 PM TACTICAL AIR DEFENSE CONTROLLER Gender Identity Not on file Sexual Orientation Straight 01/03/2018 1: 26 PM TACTICAL AIR DEFENSE CONTROLLER documented as of this encounter Miscellaneous Notes * Telephone Encounter - Kat Stewart R.N. - 07/27/2023 1:37 PM CDT Patient rescheduled for suprapubic catheter placement 08/07 at [facility] with Dr. Diaz. Urology contacted [facility] to help manage Coumadin prior to procedure. Urology will contact patient and let them know when to stop prior to procedure and of appointments. * Telephone Encounter - Kat Stewart R.N. - 07/14/2023 3:55 PM CDT I received a request from urology to schedule Mr. Reddy for Suprapubic catheter placement. I have Mr. Reddy scheduled to undergo Suprapubic catheter [facility] at [facility] with Dr. Diaz on 07/26/23. Patient is taking coumadin and ordering provider to provide patient with instructions on when to hold prior to procedure. Patient is not diabetic. TOWER CLEANER needed for procedure. This procedure is scheduled as an outpatient procedure. Urology team to notify the patient of theseappointments. documented in this encounter Plan of Treatment Upcoming Encounters Date Type Department Care Team (Late st Contact Info) Description 11/08/2023 9:15 AM CDT Clinical Communication Virtual Review in [place], [place] 200 [place] [phone] 11/10/2023 10:00 AM CDT Office Visit Department of Urology in [place], [place] [address] [phone] Wade Amanda M.D. [address] [place] [phone] 11/10/2023 10:45 AM CDT Procedure visit Department of Urology in [place], [place] [address] [phone] Wade Amanda M.D. [address] [place] [phone] 12/12/2023 10:30 AM TACTICAL AIR DEFENSE CONTROLLER Office Visit Department of Urology in [address] [phone] Kennedi Dan APRN, C.N.P. [address] [phone] documented as of this encounter Visit Diagnoses Not on filedocumented in this encounter Care Teams Seed Corn Manager Production Relationship Specialty Start Date End Date Elsewhere, Pcp PCP - General Family Medicine 06/08/22 documented as of this encounter
--- OUTSIDE RECORDS SUMMARY | 2023-11-03 22:19 | XMS_ITS | Encounter Summary ---
Author Organization [facility] Address [address] [place] [phone] Care Team Providers Care Clinical Rehabilitation Specialist Name Role Phone Elsewhere, Pcp Primary Care Provider Unavailabl e Reason for Visit * Reason Onset Date Comments Phone call 08/05/2023 Encounter Details Date Type Department Care Team (Late st Contact Info) Description 08/05/2023 Clinical Communication Department of Urology in [place], [place] [address] [place] [phone] Wade Amanda M.D. [address] [place] [phone] Phone call Social History Tobacco Use Types Packs/Day Years Used Date Smoking Tobacco: Former Cigarettes 1 25 0 02/08/1956 - 02/07/1981 Passive Smoke Exposure: Past Smokeless Tobacco: Never Chew Quit: 03/03/1981 Passive Exposure Comments:No t for Years Alcohol Use Standard Drinks/Week Comments Yes 7 (1 standard drink = 0.6 oz pur e alcohol) [facility] Utilities Answer Date Recorded In the past 12 months has [facility] [employer], gas, oil, or water [employer] threatened to shut off services in your [...] often do you attend chur ch or roman catholic services? More than 4 times per year 06/09/2022 Do you belong to any clubs o r organizations such as gnosticism groups, unions, fraternal or athletic groups, or [...] your living situation today? I have a [facility] place to live 06/22/2023 Education Answer Date Recorded What is the highest level of school you have completed or the highest degree you have received? 12th grade 06/09/2022 Sex and Gender Information Value Date Recorded Sex Assigned at Male 01/03/2018 1:26 PM MERCHANDISE COLLECTOR Gender Identity Not on file Sexual Orientation Straight 01/03/2018 1: 26 PM MERCHANDISE COLLECTOR documented as of this encounter Plan of Treatment Upcoming Encounters Date Type Department Care Team (Late st Contact Info) Description 11/08/2023 9:15 AM CDT Clinical Communication Virtual Review in [place], [place] [address] [place] [phone] 11/10/2023 10:00 AM CDT Office Visit Department of Urology in [place], [place] [address] [place] [phone] Wade Amanda M.D. [address] [place] [phone] 11/10/2023 10:45 AM CDT Procedure visit Department of Urology in [place], [place] [address] [place] [phone] Wade Amanda M.D. [address] [place] [phone] 12/12/2023 10:30 AM MERCHANDISE COLLECTOR Office Visit Department of Urology in [place], [place] [address] [place] [phone] Kennedi Dan APRN, C.N.P. [address] [place] [phone] documented as of this encounter Visit Diagnoses Not on filedocumented in this encounter Care Teams Clinical Rehabilitation Specialist Relationship Specialty Start Date End Date Elsewhere, Pcp PCP - General Family Medicine 06/08/22 documented as of this encounter
[2023-11-03 22:35] LABS: Color Urine Yellow (Yellow)
[2023-11-03 22:36] LABS: Appearance Urine Cloudy (Clear); Bacteria Urine Many; Bilirubin Urine Negative (Negative); Blood Urine 3+ (Negative); Glucose Urine Negative (Negative); Ketones Urine Negative (Negative); Leukocyte Esterase Urine 3+ (Negative); Nitrite Urine Positive (Negative); Protein Urine Trace (Negative); RBC Urine 50-100 (0-2); Specific Gravity Urine 1.015 (1.000-1.030); Urobilinogen Urine 0.2 (0.2-1.0); WBC Urine >100 (0-5); pH Urine 7.5 (5.0-8.5)
== END 2023-11-03 22:25 | disposition home or self-care (01) ==
LOC: ED 22:16
PROVIDERS: Emergency Provider Family Medicine; PCP Family Medicine
DX: T83.091A Other mechanical complication of indwelling urethral catheter, initial encounter (principal)
CPT/HCPCS: 51702; 81001; 87086; 87186; 99282; 99284

== ENCOUNTER 2023-12-11 09:14 | Emergency (ER) | payer MEDICARE, BC, SELFPAY ==
[2023-12-11] VITALS (8 sets, daily range): BP systolic 107–125; BP diastolic 68–81; PULSE 73–87; RESP 18; TEMP 36.7; O2SAT 91–93; BMI 28.7
--- NOTE | 2023-12-11 09:30 | CRLHL7_ITS ---
For Patients: As a result of the Century Cures Act, medical imaging exams and procedure reports are released immediately into your electronic medical record. You may view this report before your referring provider. If you have questions, please contact your health care provider. Indication: Shortness of breath. Technique: Two view(s) of the chest. Comparison: 10/03/2023. Findings: Unchanged cardiomediastinal silhouette with atherosclerotic aortic calcifications. Mildly hypoinflated lungs without dense consolidation. Similar chronic blunting of the costophrenic angles. No large pleural effusion. No pneumothorax. 1.1 cm nodular density in the right lung apex, new compared to prior. No acute osseous abnormality identified. Similar postoperative changes following partial left 6th rib resection. Impression: 1. No acute cardiopulmonary abnormality identified. 2. Nodular density within the right lung apex measuring 1.1 cm. As clinically indicated, this could be further evaluated with nonemergent chest CT. Dictated by Delmy Bustillo MD @ 12/11/2023 10:10:08 AM (Electronically Signed)
--- NOTE | 2023-12-11 09:45 | ED.GENADULT ---
HPI - General Adult General Chief complaint: Shortness of Breath/Dyspnea Stated complaint: Short of breath Time Seen by Provider: 12/11/23 09:19 Source: patient, RN notes reviewed, old records reviewed and other Mode of arrival: ambulatory Limitations: no limitations History of Present Illness HPI narrative: Patient is an 88-year-old male here with shortness of breath. He notes that he was hospitalized at [place] [address] for several days last week, he tells me he was discharged on . Presents to the ER Tuesday saying this morning he felt short of breath. He feels that he was admitted to the hospital last week with congestive heart failure, I have looked through his discharge materials difficult to tell exactly what whether they felt he was having COPD or CHF or combination of the 2. It looks as if they prescribed oxygen, he is not aware of needing oxygen and has not followed through on getting this. He was not discharged on any diuretics or steroids. He was discharged on amoxicillin. They gave him discharge instructions on COPD as well as a congestive heart failure action plan. He tells me he has been keeping track of his daily weights and that they have been stable. Feels short of breath all the time today, no particular worsening with exertion. He denies fever cough, denies significant worsening of leg swelling. Related Data Home Medications ?Medication ?Instructions ?Recorded ?Confirmed atorvastatin 40 mg tablet 40 mg PO HS 08/28/21 10/03/23 triamterene 37.5 1 cap PO DAILY 08/28/21 10/03/23 mg-hydrochlorothiazide 25 mg capsule warfarin 2 mg tablet 4 - 6 mg PO DAILY 08/28/21 10/03/23 losartan 50 mg tablet 50 mg PO DAILY 10/03/23 10/03/23 metoprolol succinate 25 mg 25 mg PO DAILY 10/03/23 10/03/23 tablet,extended release 24 hr nitroglycerin 0.4 mg sublingual 0.4 mg sublingual angina 10/03/23 tablet Previous Rx's ?Medication ?Instructions ?Recorded amoxicillin 875 mg-potassium 1 tab PO BID #14 tabs 10/04/23 clavulanate 125 mg tablet Allergies Allergy/AdvReac Type Severity Reaction Status Date / Time codeine Allergy Mild Verified 05/11/22 09:09 Review of Systems Status of ROS: Reports: 10 or more systems reviewed and unremarkable except as noted in History and below [facility] Medical History Suprapubic catheter ?Z93.59 - Other cystostomy status (ICD-10) ISAAC (obstructive sleep apnea) ?G47.33 - Obstructive sleep apnea (adult) (pediatric) (ICD-10) History of vertigo (09/26/06) ?Z87.898 - Personal history of other specified conditions (ICD-10) History of poliomyelitis (02/06/09) ?Z86.12 - Personal history of poliomyelitis (ICD-10) History of pneumothorax (02/06/09) ?Z87.09 - Personal history of other diseases of the respiratory system (ICD-10) History of malignant neoplasm of skin (10/15/09) ?Z85.828 - Personal history of other malignant neoplasm of skin (ICD-10) History of diverticulitis (10/16/07) ?Z87.19 - Personal history of other diseases of the digestive system (ICD-10) History of deep venous thrombosis (06/05/12) ?Z86.718 - Personal history of other venous thrombosis and embolism (ICD-10) History of colonic polyps (09/2019) ?Z86.010 - Personal history of colonic polyps (ICD-10) Aspiration, chronic pulmonary ?T17.908A - Unspecified foreign body in respiratory tract, part unspecified causing other injury, initial encounter (ICD-10) Sublingual abscess ?K12.2 - Cellulitis and abscess of mouth (ICD-10) Trouble swallowing ?R13.10 - Dysphagia, unspecified (ICD-10) Anticoagulant long-term use ?Z79.01 - lobsterman (current) use of anticoagulants (ICD-10) Neck abscess ?L02.11 - Cutaneous abscess of neck (ICD-10) Pneumothorax ?J93.9 - Pneumothorax, unspecified (ICD-10) COPD (chronic obstructive pulmonary disease) ?J44.9 - Chronic obstructive pulmonary disease, unspecified (ICD-10) Asbestosis ?J61 - Pneumoconiosis due to asbestos and other mineral fibers (ICD-10) History of prostate cancer ?Z85.46 - Personal history of malignant neoplasm of prostate (ICD-10) Insomnia ?G47.00 - Insomnia, unspecified (ICD-10) Paroxysmal atrial fibrillation ?I48.0 - Paroxysmal atrial fibrillation (ICD-10) Congestive heart failure ?I50.9 - Heart failure, unspecified (ICD-10) Hyperlipidemia ?E78.5 - Hyperlipidemia, unspecified (ICD-10) 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 - Presbycusis, unspecified ear (ICD-10) Hypertension ?I10 - Essential (primary) hypertension (ICD-10) ASCVD (arteriosclerotic cardiovascular disease) ?I25.10 - Atherosclerotic heart disease of [place] coronary artery without angina pectoris (ICD-10) Surgical History History of right inguinal hernia repair (02/06/09) ?Z98.890 - Other specified postprocedural states (ICD-10) ?Z87.19 - Personal history of other diseases of the digestive system (ICD-10) History of right coronary artery stent placement (03/06/18) ?Z95.5 - Presence of coronary angioplasty implant and graft (ICD-10) History of lumbar discectomy (06/14/12) ?Z98.890 - Other specified postprocedural states (ICD-10) History of colonoscopy (09/18/19) ?Z98.890 - Other specified postprocedural states (ICD-10) History of colonoscopy ?Z98.890 - Other specified postprocedural states (ICD-10) History of appendectomy ?Z90.49 - Acquired absence of other specified parts of digestive tract (ICD-10) History of laparoscopic cholecystectomy ?Z90.49 - Acquired absence of other specified parts of digestive tract (ICD-10) Hx of CABG ?Z95.1 - Presence of aortocoronary bypass graft (ICD-10) Social History Narrative: , six kids, retired, former smoker What is your current living situation?: I presently have a place to live Problems where you live: no known problems Problems where you live details: NA In the past 12 months, utilities in danger of being shut off: no In past 12 months, lack of transportation kept you from medical appts, meetings, work, or getting things needed for daily living: no In the past 12 mos, have been you worried that your food would run out before you had money to buy more?: never true In the past 12 mos, the food you bought just didn't last and you didn't have money to buy more?: never true Smoking Status: Never smoker Do you use any of these nicotine containing products: None Second hand tobacco smoke exposure: No How often do you have a drink containing alcohol: 4 or more times a week Alcohol type: beer Alcohol type details: 1 beer/day How many standard drinks containing alcohol do you have on a typical day: 1 or 2 How often do you have six or more drinks on one occasion: Never AUDIT-C Alcohol total score: 4 Non-prescribed substance use: denies use Caffeine: No How often does anyone, including family, friends and others, physically hurt you: never How often does anyone, including family, friends and others, insult or talk down to you: never How often does anyone, including family, friends and others, threaten you with harm: never How often does anyone, including family, friends and others, scream or curse at you: never service: Yes Exam Narrative: Exam Narrative: Vital signs as noted above. In general, an alert, well-appearing patient. Head: Normocephalic, atraumatic. Eyes: Pupils are equal reactive. Extraocular movements are full. Conjunctivae are normal. ENT: Mucous membranes are moist. Neck: Supple without lymphadenopathy. Heart: Regular rate and rhythm. No murmur or rub. Lungs: Clear bilaterally. No increased work of breathing, crackles or wheezes. Abdomen: Soft and nontender. No organomegaly. Extremities: Well perfused. Minimal edema. No calf tenderness. Pulses intact. Neurologic: Patient is alert and oriented to person and place. Speech is fluent. Face is symmetric. Moves all extremities equally. Affect: Normal. Skin: Warm and dry. Well perfused. Const: Vital Signs, click to edit/add: Vital Signs - 24 hr 12/11/23 09:21 12/11/23 09:51 12/11/23 09:55 Temperature 98.1 F Pulse Rate 76 Pulse Rate [Pulse Oximeter] 87 Respiratory Rate 18 Blood Pressure 107/78 Blood Pressure [Ri ght Upper Arm] 113/68 Pulse Oximetry 93 91 Oxygen Delivery Me thod Room Air 12/11/23 10:00 12/11/23 10:01 11/03/24 10:15 Temperature Pulse Rate 78 76 75 Pulse Rate [Pulse Oximeter] Respiratory Rate Blood Pressure 119/68 Blood Pressure [Ri ght Upper Arm] Pulse Oximetry 93 92 Oxygen Delivery Me thod 12/11/23 10:30 12/11/23 10:31 Temperature Pulse Rate 73 77 Pulse Rate [Pulse Oximeter] Respiratory Rate Blood Pressure 125/81 Blood Pressure [Ri ght Upper Arm] Pulse Oximetry 92 93 Oxygen Delivery Me thod Documenting provider has reviewed patient's vital signs: yes Course Course ED Course: I reviewed previous records here and does mention reviewed his discharge instructions from [place] [address]. A little unclear on his hospital stay overall, and it seems that he was supposed to get oxygen but never did. Oxygenation here is reassuring, his lungs are clear and he does not appear significantly dyspneic. He does have an appointment with his primary doctor tomorrow. I am hesitant to modify medications at this time, think that would be better done by primary care if needed tomorrow. I do not know if he has had a prior recent echo nor do I know whether he was formally felt to have a CHF exacerbation at had this most recent hospitalization. I do not hear anything on exam today to suggest CHF or COPD. I will do an x-ray and some basic labs to make sure he does not have a new condition such as a pneumonia, pleural effusion, acute coronary syndrome. Workup today is reassuring. His BNP is 47, I reviewed his records any did have an echo in 2021 which showed a normal EF. His troponin is 0.01, an EKG by my review showed a sinus rhythm ventricular rate of 78, no acute ST segment changes and normal T-waves. White count is normal at 9.8, hemoglobin is 15 metabolic panel notable for a CO2 of 36 consistent with his known COPD, BUN is 32 creatinine is normal at 1. His total bilirubin is slightly elevated at 2 of uncertain significance. The remainder of his LFTs are normal. He does not have any abdominal pain or other GI complaints. CRP is 1.7. TSH is still pending and I will follow-up on that. O2 sats are 96% at this time. Chest x-ray by my review did not show any evidence of congestive heart failure, infiltrate, effusion. Final radiology read was reviewed, there is a nodular density in the right lung and CT follow-up is recommended at some point. This can be done through primary care. I reviewed all this with him and provided him a copy of the x-ray read as well. I have encouraged him to follow-up as planned tomorrow with his primary care doctor, bring his paperwork from today's visit, so that they can go over all of his medications, make sure that he has a CT scan scheduled, and discuss this plan for home oxygen. At this time patient is stable for discharge. Vital Signs Vital signs: Initial Vital Signs Temperature 98.1 F 12/11/23 09:21 Temperature Source Temporal Artery Scan 12/11/23 09:21 Pulse Rate 87 12/11/23 09:21 Respiratory Rate 18 12/11/23 09:21 Blood Pressure 113/68 12/11/23 09:21 Blood Pressure Mean 83 12/11/23 09:21 Pulse Oximetry 93 12/11/23 09:21 Oxygen Delivery Method Room Air 12/11/23 09:21 Vital Signs Temperature 98.1 F 12/11/23 09:21 Pulse Rate 87 12/11/23 09:21 Respiratory Rate 18 12/11/23 09:21 Blood Pressure 113/68 12/11/23 09:21 Pulse Oximetry 93 12/11/23 09:21 Oxygen Delivery Method Room Air 12/11/23 09:21 Temperature 98.1 F 12/11/23 09:21 Pulse Rate 77 12/11/23 10:31 Respiratory Rate 18 12/11/23 09:21 Blood Pressure 125/81 12/11/23 10:31 Pulse Oximetry 93 12/11/23 10:31 Oxygen Delivery Method Room Air 12/11/23 09:21 Medical Decision Making Lab Data Labs: Lab Results 12/11/23 12/11/23 Range/Units 09:31 09:40 WBC 9.75 (4.50-11.00) K/uL RBC 4.68 (4.30-5.90) m/uL Hgb 15.0 (13.5-17.5) gm/dL Hct 44.9 (37.0-53.0) % MCV 96 (80-100) fL MCH 32 (26-34) pg MCHC 33 (32-36) gm/dL RDW Coeff of Betty 12.8 (11.5-15.5) % Plt Count 164 (140-440) K/uL Neut % (Auto) 70.4 (42.0-72.0) % Lymph % (Auto) 12.6 L (20-44) % [place] % (Auto) 12.8 H (0.0-11.0) % Eos % (Auto) 3.2 (0.0-7.0) % Baso % (Auto) 0.2 (0.0-3.0) % Neut # (Auto) 6.86 (1.7-7.0) K/uL Lymph # (Auto) 1.20 (0.90-2.90) K/uL [place] # (Auto) 1.20 H (0.00-0.90) K/UL Eos # (Auto) 0.31 (0.00-0.50) K/uL Baso # (Auto) 0.02 (0.00-0.30) K/uL Abs Immat Gran (auto) 0.08 (0.00-0.30) K/uL Imm/Tot Granulo (auto) 0.8 % Sodium 135 (135-149) mmol/L Potassium 3.9 (3.6-5.1) mmol/L Chloride 95 L (96-114) mmol/L Carbon Dioxide 36 H (20-32) mmol/L Anion Gap 4 L (7-15) mEq/L BUN 32 H (7-30) mg/dL Creatinine 1.0 (0.5-1.5) mg/dL Estimated Creat Clear 53.74 Estimated GFR 73 ml/min Glucose 103 (60-115) mg/dL Calcium 9.7 (8.4-10.6) mg/dL Total Bilirubin 2.0 H (0.1-1.5) mg/dL Direct Bilirubin 0.2 (0.0-0.5) mg/dL AST 32 (12-35) U/L ALT 31 (4-50) U/L Alkaline Phosphatase 87 (40-150) U/L C-Reactive Protein 1.7 H (0.5-1.0) mg/dL NT-Pro-B Natriuret Pep 47 pg/mL Total Protein 6.3 (6.0-8.3) g/dL Albumin 3.6 (3.3-5.0) g/dL POC Troponin I 0.01 (0.01-0.04) ng/ml Imaging Data Chest x-ray: Attestation: I have reviewed the pertinent imaging results. Radiologist's impression: Patient: AUTUMN MILAN Facility: [facility] RIS Site . Site : 1935 Study: XRay-Chest 2 VIEW-12/11/2023 9:55:12 AM Ordering Physician: Raffi Louie Final Report: Indication: Shortness of breath. Technique: Two view(s) of the chest. Comparison: 10/03/2023. Findings: Unchanged cardiomediastinal silhouette with atherosclerotic aortic calcifications. Mildly hypoinflated lungs without dense consolidation. Similar chronic blunting of the costophrenic angles. No large pleural effusion. No pneumothorax. 1.1 cm nodular density in the right lung apex, new compared to prior. No acute osseous abnormality identified. Similar postoperative changes following partial left 6th rib resection. Impression: 1. No acute cardiopulmonary abnormality identified. 2. Nodular density within the right lung apex measuring 1.1 cm. As clinically indicated, this could be further evaluated with nonemergent chest CT. Dictated by Delmy Bustillo MD @ 12/11/2023 10:10:08 AM Discharge Plan Discharge Clinical Impression: Mild shortness of breath Patient Disposition: Home, Self-Care Condition: Stable Instructions: Shortness of Breath (ED) Additional Instructions: Your test today looked good. It does not appear the have significant heart failure or COPD worsening today. I would recommend you follow-up tomorrow with your primary care doctor as planned. Right now, your oxygen levels are acceptable, but it looks as if the doctors who take care of you at [facility] intended for you to have oxygen at home and provided a prescription for this. Please discuss further with your primary care doctor. Make sure your medications are reviewed to make sure that you are on everything that you should be on. Prescriptions: No Action losartan 50 mg tablet 50 mg PO DAILY metoprolol succinate 25 mg tablet extended release 24 hr 25 mg PO DAILY nitroglycerin 0.4 mg tablet, sublingual 0.4 mg sublingual amoxicillin-pot clavulanate 875-125 mg tablet 1 tab PO BID Qty: 14 0RF atorvastatin 40 mg tablet 40 mg PO HS triamterene-hydrochlorothiazid 37.5-25 mg capsule 1 cap PO DAILY Patient Comments: TAKE 1 CAPSULE BY MOUTH EVERY MORNING warfarin 2 mg tablet 4 - 6 mg PO DAILY Rx Instructions: 6 MG ON TUESDAY AND 4 MG OTHER DAYS OR DIRECTED Follow Up/Referrals: Lee Broderick MD [Primary Care Provider] - Stand Alone Forms: [employer] Info Instructions
[2023-12-11 09:48] LABS: Basophils Absolute Auto 0.02 K/uL (0.00-0.30); Basophils Percent Auto 0.2 % (0.0-3.0); Eosinophils Absolute Auto 0.31 K/uL (0.00-0.50); Eosinophils Percent Auto 3.2 % (0.0-7.0); Hematocrit 44.9 % (37.0-53.0); Immature Granulocytes Abs Auto 0.08 K/uL (0.00-0.30); Immature Granulocytes Pct Auto 0.8 %; Lymphocytes Percent Auto 12.6 % (20-44); Mean Corpuscular HGB Conc 33 gm/dL (32-36); Mean Corpuscular Hemoglobin 32 pg (26-34); Mean Corpuscular Volume 96 fL (80-100); Monocytes Percent Auto 12.8 % (0.0-11.0); Neutrophils Absolute Auto 6.86 K/uL (1.7-7.0); Neutrophils Percent Auto 70.4 % (42.0-72.0); Platelet Count* 164 K/uL (140-440); RDW Coefficient of Variation % 12.8 % (11.5-15.5); Red Blood Count 4.68 m/uL (4.30-5.90); Slide Review Reflex No; White Blood Count* 9.75 K/uL (4.50-11.00)
[2023-12-11 09:57] LABS: Troponin, Point-of-Care* 0.01 ng/ml (0.01-0.04)
[2023-12-11 10:08] LABS: Albumin* 3.6 g/dL (3.3-5.0)
[2023-12-11 10:09] LABS: Chloride* 95 mmol/L (96-114); Potassium* 3.9 mmol/L (3.6-5.1); Sodium* 135 mmol/L (135-149)
[2023-12-11 10:11] LABS: Alkaline Phosphatase* 87 U/L (40-150); Aspartate Amino Transferase* 32 U/L (12-35); Bilirubin Direct* 0.2 mg/dL (0.0-0.5); Total Protein* 6.3 g/dL (6.0-8.3)
[2023-12-11 10:12] LABS: Alanine Aminotransferase* 31 U/L (4-50); Est. Creatinine Clearance* 53.74; Estimated Glomerular Filt Rate 73 ml/min
[2023-12-11 10:13] LABS: Anion Gap 4 mEq/L (7-15); Blood Urea Nitrogen* 32 mg/dL (7-30); Calcium* 9.7 mg/dL (8.4-10.6); Carbon Dioxide* 36 mmol/L (20-32); Glucose* 103 mg/dL (60-115)
[2023-12-11 10:16] LABS: C Reactive Protein* 1.7 mg/dL (0.5-1.0)
[2023-12-11 10:41] LABS: NT Pro B Type NatriureticPept* 47 pg/mL
== END 2023-12-11 11:02 | disposition home or self-care (01) ==
PROVIDERS: Emergency Provider Emergency Medicine; PCP Family Medicine
DX: R06.02 Shortness of breath (principal)
CPT/HCPCS: 36415; 71046; 80048; 80076; 83880; 84443; 84484; 85025; 86140; 93005; 99284

== ENCOUNTER 2024-02-28 21:21 | Emergency (ER) | payer MEDICARE, BC, SELFPAY ==
--- OUTSIDE RECORDS SUMMARY | 2024-02-28 21:23 | XMS_ITS | Encounter Summary ---
Author Name [facility] [place] [facility] [place] Address [address] [place] [id number] Insurance Providers: All historical and current Section [...] Name Patient's Relationship to Policy Barlow BS PA MCR (WNR) MEDICARE ADVANTAGE MCR (WNR) Feb 07, 2010 [id number] [phone] ZAN MILAN PATIENT Selected Encounter This section includes the information on record at [place] for the Encounter. Date/Time Encounter Type Encounter Description Reason Provider Source Jul 12, 2023 07:45 AM HEARING AID EXAM BOTH EARS AUDIOLOGY ICD-10-CM Z01.118 Encntr for exam of ears and hearing w oth abnormal findings TICO NORIEGA Brittani Encounter Template Text not used by [place] Assessments - Encounter Diagnoses This section includes the primary and secondary diagnoses documented for the Encounter. Date/Time Primary/Secondary Diagnosis Diagnosis Name Provider Source Jul 12, 2023 06:16 PM PRIMARY Encntr for exam of ears and hearing w oth abnormal findings TICO NORIEGA [facility] Jul 12, 2023 06:16 PM SECONDARY Sensorineural hearing loss, bilateral TICO NORIEGA [facility] Plan of Treatment: Future Appointments (+ 6 months) and Future Tests (+/- 45 days) The Plan of Treatment section includes future care activities for the patient from all [place] treatmentfacilities. This section includes future appointments and future orders which are active, pending or scheduled. Future Appointments This section includes appointments that were scheduled to occur 6 months from the date of the Encounter, up to a maximum of 20 appointments. The data comes from all [place] treatment facilities. Appointment Date/Time Appointment Type Appointme nt Facility Name Aug 16, 2023 08:45 AM AMBULATORY - SURGERY [facility] Oct 20, 2023 10:30 AM AMBULATORY - SURGERY [facility] Encounter Notes: All associated encounter [...] from this visit is placed into a [facility] Audiogram module. The reports it is [...] urged him to use the recently acquired [place] payment to have her tested and fit [...] headphones Reliability: Good RIGHT EAR (Hz) 250 [phone] 1500 2000 3000 4000 6000 8000 Air: See Audiogram Display under Tools>AUDIOLOGY>ROES or see HARI Database Bone: See Audiogram Display under Tools>AUDIOLOGY>ROES or see HARI Database LEFT EAR (Hz) [phone] 1500 2000 3000 4000 6000 8000 Air: [...] lifestyle needs. He is open to the [place] Row style device, rechargeable technology and has a cellphone. - The has good vision, memory and dexterity for hearing aid use. - counseled using a standard curriculum on realistic expectations associated with adjusting to hearing aids, use of the devices, VA procedures and trial period. - counseled using a standard curriculum on effective [...] in noise. - Hearing aids ordered: Phonak [place] L90-RL hearing aids (Silver, Size 2M receivers, C-shell earmolds) were selected and ordered today. PLAN: 1. [place] will be scheduled for a 60-minute hearing aid fitting appointment. 2. The is in agreement with this plan. /es/ Ar BAEZ, [facility]-A CLINICAL/COCHLEAR IMPLANT HEMODIALYSIS LAB TECHNICIAN Signed: 07/12/2023 18:16 09/07/2023 ADDENDUM STATUS: COMPLETED Contact made with [place]. We are moving the clinic to , agreed to move his appointment to the following day, same time. I will Have this scheduled. /es/ Ar Real Ph.D. Die Try Out Worker Stamping Chief, Audiology Signed: 09/07/2023 09:33 TICO NORIEGA [facility]
--- OUTSIDE RECORDS SUMMARY | 2024-02-28 21:23 | XMS_ITS | Continuity of Care Document ---
Author Name [facility] Organization [facility] Care Team Providers Care Ring Striker Name Role Phone [facility] Unavailable Unavailable Problems Combined list of problems from Department of Defense and [facility] facilities. It does not include entries that were removed or entered in error. Problem Status Onset Date Problem Type Date of Resolution Comments Source Diagnosis: ICD-10-CM H90.3 Sensorineural hearing loss, bilateral Active Diagnosis [facility] Diagnosis: ICD-10-CM Z46.1 Encounter for fitting and adjustment of hearing aid Active Diagnosis [facility] Diagnosis: ICD-10-CM Z01.118 Encntr for exam of ears and hearing w oth abnormal findings Active Diagnosis [facility] Encounters Combined list of: 1) Encounters from [facility] of [facility] facilities going back up to thelast 18 months. 2) Encounters from the Department of [facility] facilities going back up to 280 months. Location Location Details Encounter Type Encounter Number Reason For Visit Attending Provider ADM Date DC Date Status Disposition Source [facility] Outpatient Encounter [id number] 06/19 [facility] HEARING AID EXAM BOTH EARS [id number] Diagnos is: ICD-10- CM Z01.118 Encntr for exam of ears and hearing w oth abnorma l finding s
CHAYITO NORIEGA OL T 07/11 [facility] IS [facility] CONFORMITY EVALUATION [id number] Diagnos is: ICD-10- CM Z46.1 Encount er for fitting and adjustm ent of hearing aid<br/ > PEREZ HAIDER 08/15 [facility] HEARING AID FITTING/CH ECKING [id number] Diagnos is: ICD-10- CM H90.3 Sensori neural hearing loss, bilater al
ERNIE DOMÍNGUEZ F 10/19 [facility]
--- OUTSIDE RECORDS SUMMARY | 2024-02-28 21:24 | XMS_ITS | Referral Summary ---
Author Organization [facility] Address [address] [place] [address] Care Team Providers Care Roof Tiler Name Role Phone Elsewhere, Pcp Primary Care Provider Unavailabl e Source Comments Patient records contain information from all sites at [facility]. For routine questions regarding patient records, call [phone] during business hours, M-F 8:00 AM - 5:00 PM Central Time. Record requests for emergency care only can be directed to [phone] at any time.[facility] Encounters Date Type Department Care Team Description 02/13/2024 10:30 AM CNA CAREGIVER Nurse Only Department of Urology in [address] [phone] Kennedi Dan APRN, C.N.P. Kellie Kc, RBonyNBony Nurse Visit; Removal / Exchange Catheter 01/13/2024 9:00 AM CNA CAREGIVER Office Visit Department of Urology in [place], [place] [address] [place] [phone] Kennedi Dan APRN, C.N.P. 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 Primary Malignant Neoplasm Of Prostate (HCC) (Primary Dx); Retention Urinary from Last 3 Months Allergies Active Allergy Reactions Criticality Noted Date Comments Codeine Headache Low 05/30/2002 Other reaction(s): mild Medications acetaminophen (TYLENOL) 500 mg tablet Take 2 tablets by mouth every 8 (eight) hours as needed. pain. Max tylenol dose 3000mg in 24 hours 7 Active calcium citrate-vitamin D3 (CITRACAL + D MAXIMUM) 315-250 mg-unit per tablet Take 1 tablet by mouth daily. bone health 7 Active tamsulosin (FLOMAX) 0.4 mg 24 hr capsule Take 2 capsules by mouth daily. BPH 7 Active metoprolol succinate (TOPROL-XL) 25 mg 24 hr tablet Take 1 tablet (25 mg total) by mouth daily. Do not crush or chew. PLUS a 50mg tablet daily 90 tablet 3 0 Active triamterene-hyd roCHLOROthiazid e (DYAZIDE) 37.5-25 mg per capsule TK 1 C PO D 9 Active nitroglycerin (NITROSTAT) 0.[address] 0.4 mg under the tongue every 5 (five) minutes as needed for chest pain. 0 Active losartan (COZAAR) 50 mg tablet TAKE 1 TABLET(50 MG) BY MOUTH EVERY DAY 3 Active vit A/vit C/vit E/zinc/copper (PRESERVISION AREDS ORAL) Take 1 capsule by mouth 2 (two) times a day. Active warfarin (COUMADIN) 2 mg tablet TAKE 2 TABLETS BY MOUTH EVERY DAY IN THE EVENING OR DIRECTED You may resume 24-48 hours after your urologic surgery if no significant blood in the urine. 3 Active atorvastatin (LIPITOR) 40 mg tablet Take 1 tablet by mouth at bedtime. 3 Active magnesium oxide (Mag-Ox) 400 mg (241.3 mg magnesium) tablet Take 1 tablet by mouth daily. 4 Active methocarbamoL (Robaxin) 500 mg tablet Take 500 mg by mouth daily. 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 More than 4 times per year 06/09/2022 Do you belong to any clubs o r organizations such as adventism groups, unions, fraternal or athletic groups, or [...] Answer Date Recorded PHQ-2 Score 0 09/21/2018 [facility] [...] Sex Assigned at Male 01/03/2018 1:26 PM CNA CAREGIVER Legal Sex Male 4:09 AM CNA CAREGIVER Gender Identity Not on file Sexual Orientation Straight 01/03/2018 1: 26 PM CNA CAREGIVER Last Filed Vital Signs Vital Sign Reading Time Taken Comments Blood Pressure 114/63 10/13/2023 8:32 AM CDT Pulse 68 10/13/2023 8:32 AM CDT Temperature 36.4 C (97.5 F) 08/25/2023 8:58 AM CDT Respiratory Rate 16 08/25/2023 10:15 AM CDT Oxygen Saturation 97% 08/25/2023 10:15 AM CDT Inhaled Oxygen Concentration - - Weight 98.5 kg (217 lb 0.7 oz) 08/25/2023 7:39 A M CDT Height 180 cm (5' 10.87) 09/23/2022 1:59 PM CDT Body Mass Index 30.39 09/23/2022 1:59 PM CDT Plan of Treatment Upcoming Encounters Date Type Department Care Team (Late st Contact Info) Description 03/12/2024 9:30 AM CNA CAREGIVER Nurse Only Department of Urology in [address] [phone] Kennedi Dan APRN, C.N.P. [address] [phone] 04/09/2024 10:30 AM CNA CAREGIVER Nurse Only Department of Urology in [address] [place] [phone] Kennedi Dan APRN, C.N.P. [address] [place] [phone] Medical Devices Implanted Type Area Fishing Boat Mate Device Identifier Shelf Expiration Date Model / Serial / Lot Infuse Bmp Xxsmall - [id number] [id number] Implanted:Qty: 1 on 10/26/2016 Bone or Tissue Other/Legacy - See Implant Description Other/Legacy - See Implant Description Description:Device Manufactu rer - [employer]. Body Location - Other. arthrodesis. Device Status Text - [id number]. Stimublast Dbm Gel 5cc - Rosado [id number] Implanted:Qty: 1 on 10/26/2016 Bone or Tissue Other/Legacy - See Implant Description Arthrex Description:Device Manufactu rer - Arthrex. Body Location - Other. arthrodesis. Device Status Text - [id number]. Stnt Synergy Art Rx3.5x16 - [id number] Implanted:Qty: 1 on 03/06/2018 by Farheen Branch M.D. at [facility] Cardiac Stent N/A: Coronary [place] [employer] 12/07/2019 [id number] / / [id number] Description:pRCA Simmetry Screw 12.5mm X 80 - Rosado [id number] Implanted:Qty: 1 on 10/26/2016 Hardware e.g. pins/screws /rods Other/Legacy - See Implant Description [employer]ga Technology Description:Device Manufactu rer - [employer] Body Location - Other. Right. Device Status Text - [id number]. Simmetry Washer 12.5mm - Rosado [id number] Implanted:Qty: 1 on 10/26/2016 Hardware e.g. pins/screws /rods Other/Legacy - See Implant Description [employer] Technology Description:Device Manufactu rer - [employer]. Body Location - Other. Right. Device Status Text - [id number]. Conversions - Default Historical Implant Device Implanted:10/26 (Quantity not on file) Misc Other Abdomen Description:Body Location - Abdominal. Device Status Text - MiscOther. mesh from hernia repair. 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 02/13/2024 10:46 AM Bladder Catheterization Performed by: Kellie Kc RHermes. Authorized by: Kennedi Dan APRN, C.N.P. PROCEDURE DETAILS Catheter insertion: suprapubic Suprapubic catheter type: exchange Catheter type: single lumen Catheter size: 20 Fr Balloon inflation amount (mL): 10 Bladder irrigation: no Number of attempts: 1 Urine characteristics: clear and yellow CONSENT Consent obtained: verbal Consent given by: patient UNIVERSAL PROTOCOL All relevant documentation and testing were reviewed and available. All required blood products, implants, devices and or special equipment were made available as applicable. Pre-procedure verification was conducted and the correct site was marked if required. A fire risk and smoke assessment were done as applicable. The procedural time-out to verify correct patient, correct side/site, and procedure was conducted prior to performing the procedure and confirmed in a procedural pause. PRE-PROCEDURE DETAILS Indication: urinary retention Appropriate hand hygiene, gown, cap, mask, protective eyewear, sterile gloves, skin preparation, sterile drape, and strict aseptic technique were utilized as applicable for the procedure: yes SEDATION / ANESTHESIA Anesthesia method: none POST-PROCEDURE DETAILS Procedure completed successfully: yes Complications: no immediate complications us Faiza Flynn APRNNBonyPBony PROCEDURE/MINOR S URGICAL ORDERABLES Final Result MMODAL NA * Bladder Catheterization (01/13/2024 9:00 AM CNA CAREGIVER) Narrative MMODAL - 01/13/2024 9:00 AM CNA CAREGIVER Kennedi Dan APRN C.N.PBony 02/08/2024 9:14 PM Bladder Catheterization Performed by: Kennedi Dan APRN C.N.P. Authorized by: Kennedi Dan APRN, C.N.PBnoy Care team members present 1. Kennedi Dan APRN, C.N.PBony 2. Sophia Gaspar R.N. PROCEDURE DETAILS Provider performed due to: complicated insertion Catheter insertion: suprapubic Suprapubic catheter type: exchange Catheter type: flores Catheter size: 20 Fr Balloon inflation amount (mL): 10 Bladder irrigation: no Number of attempts: 1 Urine characteristics: clear CONSENT Consent obtained: verbal Consent given by: patient The benefits, risks and alternatives to the procedure and the potential need for sedation or anesthesia as well as the names, roles, and responsibilities of healthcare team members performing significant interventional tasks were discussed with the patient and/or decision maker. UNIVERSAL PROTOCOL All relevant documentation and testing were reviewed and available. All required blood products, implants, devices and or special equipment were made available as applicable. Pre-procedure verification was conducted and the correct site was marked if required. A fire risk and smoke assessment were done as applicable. The procedural time-out to verify correct patient, correct side/site, and procedure was conducted prior to performing the procedure and confirmed in a procedural pause. PRE-PROCEDURE DETAILS Other Indication: Regularly scheduled catheter exchange Appropriate hand hygiene, gown, cap, mask, protective eyewear, sterile gloves, skin preparation, sterile drape, and strict aseptic technique were utilized as applicable for the procedure: yes SEDATION / ANESTHESIA Anesthesia method: none POST-PROCEDURE DETAILS Procedure completed successfully: yes Complications: no immediate complications COMMENTS Future catheter exchanges can be completed by nursing staff, orders are placed for this. We will plan to check renal ultrasound and abdominal x-ray in approximately 1 year. If he has signs or symptoms of infection he understands that urine sample should be collected on clean catheters, he will contact us if he has issues with this. With indwelling Flores catheter, he does not need Flomax, he will discontinue this medication. All questions answered. us Faiza Flynn APRNNLoida PROCEDURE/MINOR S URGICAL ORDERABLES Final Result MMODAL NA * Bladder Catheterization (12/12/2023 10:30 AM CNA CAREGIVER) Narrative MMODAL - 12/12/2023 10:30 AM CNA CAREGIVER Kennedi Dan APRN, C.NBonyPBony 12/12/2023 9:18 PM Bladder Catheterization Performed by: Kennedi Dan APRN C.N.P. Authorized by: Kennedi Dan APRN, C.N.PBony Care team members present 1. Kennedi Dan APRN, C.N.Gisela 2. Sophia Gaspar R.N. PROCEDURE DETAILS Provider performed due to: complicated insertion Catheter insertion: suprapubic Suprapubic catheter type: exchange Catheter type: flores Catheter size: 18 Fr Balloon inflation amount (mL): 10 Bladder irrigation: no Number of attempts: 1 Urine characteristics: clear CONSENT Consent obtained: verbal Consent given by: patient The benefits, risks and alternatives to the procedure and the potential need for sedation or anesthesia as well as the names, roles, and responsibilities of healthcare team members performing significant interventional tasks were discussed with the patient and/or decision maker. UNIVERSAL PROTOCOL All relevant documentation and testing were reviewed and available. All required blood products, implants, devices and or special equipment were made available as applicable. Pre-procedure verification was conducted and the correct site was marked if required. A fire risk and smoke assessment were done as applicable. The procedural time-out to verify correct patient, correct side/site, and procedure was conducted prior to performing the procedure and confirmed in a procedural pause. PRE-PROCEDURE DETAILS Other Indication: Catheter exchange Appropriate hand hygiene, gown, cap, mask, protective eyewear, sterile gloves, skin preparation, sterile drape, and strict aseptic technique were utilized as applicable for the procedure: yes SEDATION / ANESTHESIA Anesthesia method: none POST-PROCEDURE DETAILS Procedure completed successfully: yes Complications: no immediate complications COMMENTS Flores catheter removed was 16 Fr, upsized to 18 Fr SP, patient tolerated well. 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 See document viewer. * Full Code (Latest Code Status on File) Date Activated Date Inactivated Comments 03/06/2018 2:36 PM 03/06/2018 9:26 PM Question Answer Comments Full Code: Not Discussed Due to: Patient not available Care Teams Roof Tiler Relationship Specialty Start Date End Date Elsewhere, Pcp PCP - General Family Medicine 06/08/22
--- OUTSIDE RECORDS SUMMARY | 2024-02-28 21:24 | XMS_ITS | Clinical Summary ---
Author Organization [facility] Address [place], [place] [address] Care Team Providers Care Petrophysicist Name Role Phone Vira Green Unavailable Lee Broderick MD Primary Care Provider Allergies Active Allergy Reactions Criticality Noted Date Comments Codeine Headache Low 04/28/2020 Other reaction(s): mild Medications Walker with Wheels For home use. 1 Device 0 3 Active nitroglycerin (NITROSTAT) 0.4 mg sublingual tabletIndications :PATEL (dyspnea on exertion) Place 1 Tablet (0.4 mg) under the tongue every 5 minutes if needed for Chest Pain. 30 Tablet 2 4 Active atorvastatin (LIPITOR) 40 mg tabletIndications :Hyperlipidemia with target LDL less than 100 Take 1 Tablet (40 mg) by mouth at bedtime. 90 Tablet 3 4 Active losartan (COZAAR) 50 mg tabletIndications :Essential hypertension Take 1 Tablet (50 mg) by mouth once daily. 90 Tablet 3 4 Active metoprolol succinate (Toprol XL) 25 mg Sustained-Release tabletIndications :Essential hypertension Take 1 Tablet (25 mg) by mouth once daily. 90 Tablet 3 4 Active triamterene-hydro chlorothiazide, 37.5-25 mg, (DYAZIDE) 37.5-25 mg capsuleIndication s:Essential hypertension Take 1 Capsule by mouth once daily in the morning. 90 Capsule 3 4 Active oxygen-air delivery systems (HOME OXYGEN)Indication s:Hypoxia,Chronic obstructive pulmonary disease, unspecified COPD type (HC) Oxygen for home use. Liters per minute: 2 per nasal cannula. Frequency of use: Continuous with portability.;. Length of need: 99 Months. 1 Each 4 Active methocarbamoL 500 mg tabletIndications :Cramps, extremity Take 0.5 Tablets (250 mg) by mouth every 8 hours if needed for Muscle Spasm PO 1st choice. 5 Tablet 4 Active magnesium oxide (MAG-OX 400) 400 mg tabletIndications :Cramps, extremity Take 1 Tablet (400 mg) by mouth once daily. 30 Tablet 1 4 Active albuterol HFA (PRO-AIR; VENTOLIN; PROVENTIL) 90 mcg/actuation inhalerIndication s:SOB (shortness of breath) Inhale 1-2 Puffs by mouth every 4 hours if needed for Shortness Of Breath or Wheezing. 1 Each 1 4 Active warfarin (COUMADIN) 2 mg tabletIndications :Paroxysmal A-fib (HC),Anticoagulat ion monitoring, INR range 2-3 Take by mouth 2 mg (2 mg x 1) every Mon, Christelle; 4 mg (2 mg x 2) all other days in the evening OR as directed 160 Tablet 4 Active Active Problems Problem Noted Date Diagnosed Date Pulmonary nodule, right apical 1.1 cm 12/11/23 Hypoxia 12/06/2023 Suprapubic catheter placed 08/25/23 [place] 09/02/19 Prostate cancer 02/21/2023 Asbestosis 07/22/2021 Chronic obstructive pulmonary disease 06/09/2021 Restrictive lung disease 06/09/2021 CAD in [place] artery: JANEY to RCA 2018. 2 Anticoagulation monitoring, INR range 2-3 2020 Right SI joint fusion 02/04/2017 Primary osteoarthritis of right hip 10/31/2015 L3-4 disk herniation 05/18/2013 Sensorineural hearing loss, asymmetrical 013 Hip pain with paralabral cyst 07/12/2012 Personal history of malignant neoplasm of prosta te 07/14/2006 Overview (10/20/2007): S/p radioactive seed implants ~ 6 yrs ago Personal history of peptic ulcer disease 007 Unspecified Essential Hypertension Hyperlipidemia LDL goal < 100 Heart failure with preserved ejection fraction Insomnia Paroxysmal A-fib Overview (08/12/2020): by 48 hour holter 07/2020 Resolved Problems Problem Noted Date Diagnosed Date Resolved Date Pleural effusion, bilateral 12/06/2023 12/12/2023 Acute cystitis with hematuria 12/06/2023 12/12/2023 Lumbar radicular pain 11/07/20142020 DDD (degenerative disc disease), lumbar 06/14/2012 07/29/2020 Lower urinary tract symptoms (LUTS) 06/14/2012 12/12/2023 Inguinal hernia without ment ion of obstruction [...] patient. Now with recurrence - transferred from [place] due to failure to resolve Diverticulosis of colon (dani costa mention of hemorrhage) 05/29/2006 07/29/2020 HX OF DVT 05/29/2006 07/29/2020 Overview (10/20/2007): 10 yrs ago, s/p leg injury Emphysematous bleb 9 Dyspepsia and other specifie d disorders of function of stomach 07/29/2020 Nocturia 07/29/2020 Encounters Date Type Department Care Team Description 02/23/2024 10:00 AM CONSUMER LOAN SPECIALIST Procedure Only [facility] [address] [place] [address] Nany Guzmán L Ac Acupuncture 02/23/2024 Travel 02/20/2024 2:45 PM CONSUMER LOAN SPECIALIST Orders Only [facility] [address] [facility] [place] [address] Lab, [facility] 02/20/2024 Anticoagulation (warfarin) [facility] [address] [place] [address] 1, [facility] Anticoagulation 02/20/2024 Travel 02/16/2024 10:00 AM CONSUMER LOAN SPECIALIST Procedure Only [facility] [address] [place] [address] Nany Guzmán L Ac Acupuncture 02/15/2024 Travel 02/09/2024 10:00 AM CONSUMER LOAN SPECIALIST Procedure Only [facility] [address] [place] [address] Nany Guzmán L Ac Acupuncture (Initial) 02/08/2024 Travel 02/07/2024 Telephone [facility] [address] [facility] [place] [address] Lee Broderick MD Acupuncture Referral Request (appt 02/09/24) 01/23/2024 Refill [facility] [address] [place] [address] Lee Broderick MD Refill Request (Warfarin 2 mg) 01/20/2024 11:50 AM CONSUMER LOAN SPECIALIST Orders Only [address] [place] [address] Lab, [facility] 01/20/2024 Anticoagulation (warfarin) [facility] [address] [place] [address] 1, [facility] Anticoagulation 01/20/2024 Travel 01/10/2024 11:10 AM CONSUMER LOAN SPECIALIST Orders Only [address] [address] Lab, [facility] 01/10/2024 Anticoagulation (warfarin) [facility] [address] [place] [address] 1, [facility] Anticoagulation 01/10/2024 Travel 12/26/2023 3:00 PM CONSUMER LOAN SPECIALIST Orders Only [facility] [address] [place] [address] Lab, [facility] 12/26/2023 Anticoagulation (warfarin) [facility] [address] [place] [address] 1, [facility] Anticoagulation 12/26/2023 Telephone [facility] [address] [place] [address] Lee Broderick MD Anticoagulation (Annual re-enrollment- Warfarin) 12/26/2023 Travel 12/19/2023 Telephone [facility] [address] [place] [address] Lee Broderick MD Anticoagulation (CHART UPDATE/INR OVERDUE REMINDER #1 ) 12/12/2023 2:55 PM CONSUMER LOAN SPECIALIST Office Visit [facility] [address] [place] [address] Lee Broderick MD Hospital F/U ([facility], 12/06/2023 - 12/08/2023, urinary problem); ER Follow up ([place] [facility], 12/11/2023, COPD ) 12/12/2023 Travel 12/11/2023 Orders Only [facility] Scanner 1 scan: (1-Ord) [facility], CHEST 2V, 12/11/2023 12/09/2023 Patient Outreach [facility] [address] [place] [address] Ammy Winslow, RN Primary RN Care Management; Hospital F/U ([facility]) 12/08/2023 Telephone [facility] [address] [place] [address] Lee Broderick MD Anticoagulation (Lab orders ) 12/06/2023 2:53 PM CDT - 12/08/2023 11:05 AM CDT Hospital Encounter [facility] [address] [place] [address] Dav Vides MD Beardsley, Elizabeth Salazar, HUMAN RESOURCE ASSISTANT Shiloh Mane MD Berglund, Srinivas Maxwell MD Suprapubic catheter dysfunction, initial encounter (HC) (Primary Dx); Urinary tract infection associated with catheterization of urinary tract, unspecified indwelling urinary catheter type, initial encounter (HC); Hypoxia; Chronic obstructive pulmonary disease, unspecified COPD type (HC); Pleural effusion, bilateral; Penile pain; Personal history of malignant neoplasm of prostate; Anticoagulated on Coumadin; Restrictive lung disease; Leukocytosis, unspecified type; Supratherapeutic international normalized ratio (INR); Stage 2 chronic kidney disease; Cramps, extremity Discharge Disposition: Home Self Care 12/06/2023 2:45 PM CDT Office Visit [facility] [address] [place] [address] Catheter Problem (No output from flores catheter since early this morning. Rating penile pain 09/16.) 12/06/2023 Travel from Last 3 Months Immunizations Name Administration Dates Next Due COVID-19 VACCINE SPIKEVAX (M ODERNA 50MCG/0.5ML) 12YO+ PFS 12/07/2022 COVID-19 vaccine (Pfizer-Bio NTech 30mcg/0.3mL) 12YO+ BIVALENT PF, MDV 08/27/2022,10/26/2021 COVID-19 vaccine (Pfizer-Bio NTech 30mcg/0.3mL) 12YO+ MARIYA-SUCROSE PF, MDV 06/01/2021 COVID-19 vaccine (Pfizer-Bio NTech 30mcg/0.3mL) PF, MDV 11/07/2020,04/05/2020,03/15/2020 Influenza A (H1N1), Inactivated 02/06/2009 Influenza Virus, Unspecified 11/07/2012, 10/21/2011,10/31/2008,11/18,11/22/2005 Influenza, High-dose Inactivated 019,11/02/2017,11/15/2016,11/16,11/26/2014 Influenza, IIV3 (Age 6-35 mos) 10/13/2019 Influenza, IIV3 (Age >=3 years) 11/02/19 14,10/21/2011,10/31/2008,11/26,11/18/2006,11/22/2005,12/14/2004 Influenza, Inactivated AIIV4 (Age 65+ Years) Preserv Free 11/04/2022,10/26/2021,10/30/2020 Pneumococcal Conj 20-valent (Prevnar 20) 08/27/2022 Pneumococcal Poly,23-Valent (Pneumovax) 05/22/2008,12/02/1994 Pneumococcal conj 13-Valent (Prevnar 13) 07/03/2014 RSV, Recombinant ADJ Reconst ituted (Arexvy 120MCG/0.5mL) 12/07/2022 Td (Age >=7 Years) 01/28/1995 Td, Preservative Free (age >= 7 Years) 9 Tdap 06/13/2013 Zoster (Shingrix-RZV, recombinant) 11/06/2018, Zoster [...] 02/07/1981 Smokeless Tobacco: Never Tobacco Cessation:Counseling Given: No Alcohol Use Standard Drinks/Week Comments Yes 0 (1 standard drink = 0.6 oz pur e alcohol) one beer per day PHQ-2 Answer Date Recorded PHQ-2 TOTAL SCORE 0 09/02/2023 Social Connections Answer Date Recorded Do you often feel lonely or isolated from those around you? 0 12/06/2023 Financial Resource Strain Answer Date R ecorded Difficulty of Paying Living Expenses 3 08/05/2023 Difficulty of Paying Living Expenses Not on file 08/05/2023 Food Insecurity Answer Date Recorded Do you worry your food will run out before you are able to buy more? 1 12/06/2023 Transportation Needs Answer Date Record ed Does lack of transportation keep you from medica l appointments? 1 12/06/2023 Does lack of transportation keep you from work, meetings or getting things that you need? 1 12/06/2023 Housing Stability Answer Date Recorded What is your housing situation today? 1 12/06/2023 Interpersonal Safety Answer Date Record ed Are you being hit, kicked, p ushed or yelled at (see row info)? No 12/06/2023 Interpersonal Safety Abuse 12 - 18 Not on file 12/06/2023 Interpersonal Safety Ambulatory Vulnerability No t on file 12/06/2023 Utilities Answer Date Recorded Do you have trouble paying f or utilities (for example, heat, electricity, water, phone)? 1 12/06/2023 Sex and Gender Information Value Date Recorded Sex Assigned at Not on file Legal Sex Male 6:14 AM CONSUMER LOAN SPECIALIST Gender Identity Not on file Sexual Orientation Not on file Occupation Industry Job Start Date Job End Date Not on file Not on file Not on file Not on file Obstetrics History Last Filed Vital Signs Vital Sign Reading Time Taken Comments Blood Pressure 109/75 12/12/2023 2:55 PM CONSUMER LOAN SPECIALIST Pulse 84 12/12/2023 2:55 PM CONSUMER LOAN SPECIALIST Temperature 36.7 C (98.1 F) 12/08/2023 8:00 AM CDT Respiratory Rate 14 12/08/2023 8:00 AM CDT Oxygen Saturation 95% 12/12/2023 2:55 PM CONSUMER LOAN SPECIALIST Inhaled Oxygen Concentration - - Weight 91.2 kg (201 lb) 12/12/2023 2:55 PM CONSUMER LOAN SPECIALIST Height 176.5 cm (5' 9.49) 12/06/2023 4:08 PM CD T Body Mass Index 29.27 12/06/2023 4:08 PM CDT Plan of Treatment Upcoming Encounters Date Type Department Care Team (Late st Contact Info) Description 03/01/2024 10:00 AM CONSUMER LOAN SPECIALIST Procedure Only [facility] [address] [place] [address] Nany Guzmán L [address] [place] [address] 03/05/2024 10:30 AM CONSUMER LOAN SPECIALIST Orders Only [facility] [address] [place] [address] Jasbir Hernandezi 03/08/2024 8:30 AM CONSUMER LOAN SPECIALIST Procedure Only [facility] [address] [facility] [place] [address] Nany Guzmán L [address] [place] [address] Health Maintenance Due Date Last Done Comments Tetanus booster 06/14/2023 06/13/2013, 04/07/2008, 01/28/1995 Influenza for age 65+ 10/09/2023 11/04/2022 [...] 11/06/2018, 08/31/2018, 02/11/2011 Pneumococcal series for age 50+ Completed 08/27/2022, 07/03/2014, 05/22/2008, Additional history exists RSV vaccine for adults or Completed 12/07/2022 COVID-19 vaccine series Completed 12/23/19 24, 12/07/2022, 08/27/2022, Additional history exists Medical Devices Implanted Type Area Physician Neonatology Device Identifier Shelf Expiration Date Model / Serial / Lot Mesh Prolene Hernia Extended System - [id number] Implanted:Qty: 1 on 10/21/2007 at [facility] Implants Right: Abdomen [employer] (SUTURE) [facility] / / [id number] Procedures Procedure Name Priority Date/Time Associated Diagnosis Comments ACUPUNCTURE PLAN OF CARE Routine 02/23/2024 9:50 AM CONSUMER LOAN SPECIALIST Mechanical back pain Other low back pain ACUPUNCTURE PLAN OF CARE Routine 02/20/2024 3:07 PM CONSUMER LOAN SPECIALIST Mechanical back pain Other low back pain INR,POCT Routine 02/20/2024 3:06 PM CONSUMER LOAN SPECIALIST Paroxysmal A-fib (HC) Anticoagulation monitoring, INR range 2-3 ACUPUNCTURE PLAN OF CARE Routine 02/16/2024 10:01 AM CONSUMER LOAN SPECIALIST Mechanical back pain Other low back pain PROTIME-INR Routine 01/20/2024 11:35 AM CONSUMER LOAN SPECIALIST Paroxysmal A-fib (HC) Anticoagulation monitoring, INR range 2-3 PROTIME-INR Routine 01/10/2024 11:20 AM CONSUMER LOAN SPECIALIST Paroxysmal A-fib (HC) Anticoagulation monitoring, INR range 2-3 INR,POCT Routine 12/26/2023 2:57 PM CONSUMER LOAN SPECIALIST Paroxysmal A-fib (HC) Anticoagulation monitoring, INR range 2-3 SCAN-RADIOLOGY REPORT 12/11/2023 12:00 AM CDT SCAN-CARDIAC STRIP 12/08/2023 8: 10 AM CDT WHITE BLOOD COUNT Early AM 12/08/2023 5:5 4 AM CDT CO2,TOTAL Early AM 12/08/2023 5:54 AM CDT CREATININE Early AM 12/08/2023 5:54 AM CDT SODIUM Early AM 12/08/2023 5:54 AM CDT BUN Early AM 12/08/2023 5:54 AM CDT POTASSIUM Early AM 12/08/2023 5:54 AM CDT PROTIME-INR Early AM 12/08/2023 5:54 AM CDT ECHO TTE COMPLETE WO CONTRAST STAT 12/07/2023 5:01 PM CDT PROTEIN,TOTAL Today 12/07/2023 3:22 PM CDT LD,TOTAL Today 12/07/2023 3:22 PM CDT US CHEST STAT 12/07/2023 11:49 AM CDT SCAN-CARDIAC STRIP 12/07/2023 9: 55 AM CDT PROTIME-INR Early AM 12/07/2023 5:38 AM CDT WHITE BLOOD COUNT Early AM 12/07/2023 5:3 8 AM CDT CREATININE Early AM 12/07/2023 5:38 AM CDT POTASSIUM Early AM 12/07/2023 5:38 AM CDT SODIUM Early AM 12/07/2023 5:38 AM CDT SCAN-CARDIAC STRIP 12/06/2023 9: 42 PM CDT RED CELL MORPHOLOGY STAT 12/06/2023 6 :06 PM CDT PLATELET ESTIMATE STAT 12/06/2023 6:0 6 PM CDT MANUAL DIFFERENTIAL STAT 12/06/2023 6 :06 PM CDT PRO-BNP STAT 12/06/2023 6:06 PM CDT CBC WITH AUTO DIFFERENTIAL STAT 12/06/2023 6:06 PM CDT PROTIME-INR STAT 12/06/2023 6:06 PM CDT CBC WITH AUTO DIFFERENTIAL STAT 12/06/2023 6:06 PM CDT BASIC METABOLIC PANEL STAT 12/06/2023 6:06 PM CDT XR CHEST 2 VIEWS PA AND LATERAL STAT 12/06/2023 5:05 PM CDT URINE CULTURE SIOBHAN 12/06/2023 3:44 PM CDT URINALYSIS MICROSCOPIC STAT 12/06/2023 3:44 PM CDT UA W/ SEDIMENT EXAM REFLEXED PER CRITERIA STAT 12/06/2023 3:44 PM CDT from Last 3 Months Results * (ABNORMAL) INR - POCT [[id number]] - Standing Order (02/20/2024 3:06 PM CONSUMER LOAN SPECIALIST) Only the most recent of2 resultswithin the time period is included. INR 1.4(H) ratio [facility] Comment: INRs >2.9 may be falsely elevated in patients receiving either unfractionated Heparin or Low Molecular Weight Heparin. Follow up testing in a hospital laboratory may be helpful if clinically indicated. INR results of > or = 5.0 should be verified using the standard venipuncture procedure. Reference Range 0.9-1.1 Moderate-intensity Warfarin Therapy 2.0-3.0 Higher-intensity Warfarin Therapy 3.0-4.0 PROTHROMBIN TIMEP 17.3(H) 10.5 - 13.1 sec [facility] Comment: Point of care fingerstick Prothrombin Time/INR results may vary from venous Prothrombin Time/INR methodologies. Any results exhibiting inconsistency with the patient's clinical status should be repeated using a venous Prothrombin Time/INR method. Blood BLOOD SPECIMEN / Unknown 02/20/2024 3:06 PM CONSUMER LOAN SPECIALIST 02/20/2024 3:06 PM CONSUMER LOAN SPECIALIST us Lee Broderick MD LABORATORY Final Result [facility] [address] [place] [address], [facility] [address] [place] [address] * (ABNORMAL) PROTIME-INR [[id number]] - Standing Order (01/20/2024 11:35 AM CONSUMER LOAN SPECIALIST) Only the most recent of5 resultswithin the time period is included. INR 2.9(H) <1.3 01/20/2024 12:18 PM CONSUMER LOAN SPECIALIST [facility] PROTIME 33.5(H) 10.6 - 12.4 sec 01/20/2024 12:18 PM CONSUMER LOAN SPECIALIST [facility] Blood BLOOD SPECIMEN / Unknown [facility] / Unknown 01/20/2024 11:35 AM CONSUMER LOAN SPECIALIST 01/20/2024 11:48 AM CONSUMER LOAN SPECIALIST Narrative [facility] - 01/20/2024 12:18 PM CONSUMER LOAN SPECIALIST Therapeutic Range 2.0-3.0 for most anticoagulated patients 2.5-3.5 [...] seconds if the patient is on UFH. us Lee Broderick MD HEMATOLOGY Final Result [facility] [address] [place] [address] * SCAN-RADIOLOGY REPORT (12/11/2023 12:00 AM CDT) Anatomical Region Laterality Modality Other us Scanner OTHER Final Result * SCAN-CARDIAC STRIP (12/08/2023 8:10 AM CDT) us Scanner OTHER Final Result * WHITE BLOOD COUNT (12/08/2023 5:54 AM CDT) Only the most recent of2 resultswithin the time period is included. WHITE BLOOD COUNT 10.6 4.5 - 11.0 thou/cu mm 12/08/2023 6:52 AM CDT [facility] Blood BLOOD SPECIMEN / Unknown Venipuncture / Unknown 12/08/2023 5:54 AM CDT 12/08/2023 6:47 AM CDT Elizabeth Moreno HUMAN RESOURCE ASSISTANT HEMATOLOGY Fin al Result Performing Organization Address City/[facility] [[email or web address]] Co de Phone Number [facility] [address] [place] [address] * (ABNORMAL) BUN (12/08/2023 5:54 AM CDT) BUN 29(H) 8 - 23 mg/dL 12/08/2023 7:20 AM CDT [facility] Blood BLOOD SPECIMEN / Unknown Venipuncture / Unknown 12/08/2023 5:54 AM CDT 12/08/2023 6:47 AM CDT Elizabeth Moreno HUMAN RESOURCE ASSISTANT CHEMISTRY Fin al Result Performing Organization Address [facility] de Phone Number [facility] [address] [place] [address] * SODIUM (12/08/2023 5:54 AM CDT) Only the most recent of2 resultswithin the time period is included. SODIUM 139 136 - 145 mmol/L 12/08/2023 7:20 AM CDT [facility] Blood BLOOD SPECIMEN / Unknown Venipuncture / Unknown 12/08/2023 5:54 AM CDT 12/08/2023 6:47 AM CDT Elizabeth Moreno HUMAN RESOURCE ASSISTANT CHEMISTRY Fin al Result Performing Organization Address City/[facility] [[email or web address]] Co de Phone Number [facility] [address] [place] [address] * POTASSIUM (12/08/2023 5:54 AM CDT) Only the most recent of2 resultswithin the time period is included. POTASSIUM 3.6 3.5 - 5.1 mmol/L 12/08/2023 7:20 AM CDT [facility] Blood BLOOD SPECIMEN / Unknown Venipuncture / Unknown 12/08/2023 5:54 AM CDT 12/08/2023 6:47 AM CDT Elizabeth Moreno HUMAN RESOURCE ASSISTANT CHEMISTRY Fin al Result Performing Organization Address City/[facility] [[email or web address]] Co de Phone Number [facility] [address] [place] [address] * (ABNORMAL) CREATININE (12/08/2023 5:54 AM CDT) Only the most recent of2 resultswithin the time period is included. eGFR 78(L) >90 mL/min/1.7 3m2 12/08/2023 7:20 AM CDT [facility] Comment:As of 2021, eG FR is calculated by the CKD-EPI creatinine equation without race adjustment. eGFR can be influenced by muscle mass, exercise, and diet. The reported eGFR is an estimation only and is only applicable if the renal function is stable. CREATININE 0.94 0.70 - 1.20 mg/dL 12/08/2023 7:20 AM CDT [facility] Blood BLOOD SPECIMEN / Unknown Venipuncture / Unknown 12/08/2023 5:54 AM CDT 12/08/2023 6:47 AM CDT Elizabeth Moreno HUMAN RESOURCE ASSISTANT CHEMISTRY Fin al Result Performing Organization Address City/[facility] de Phone Number [facility] [address] [place] [address] * (ABNORMAL) CO2,TOTAL (12/08/2023 5:54 AM CDT) CO2,TOTAL 36(H) 22 - 29 mmol/L 12/08/2023 7:20 AM CDT [facility] Blood BLOOD SPECIMEN / Unknown Venipuncture / Unknown 12/08/2023 5:54 AM CDT 12/08/2023 6:47 AM CDT Elizabeth Moreno HUMAN RESOURCE ASSISTANT CHEMISTRY Fin al Result [facility] [address] [place] [address] * ECHO TTE COMPLETE WO CONTRAST (12/07/2023 5:01 PM CDT) AORTIC VALVE MEAN PG 3 mmHg EJECTION FRACTION 61 % LVEDD 4.6 cm Anatomical Region Laterality Modality Other 12/07/2023 2:59 PM CDT Narrative 12/07/2023 5:18 PM CDT ECHOCARDIOGRAM AUTUMN REDDY : 1935 88 years Study Date: 12/07/2023 2:59:29 PM Gender: M BP: 120/64 mmHg Height: 175.00 cm BSA: 2.06 m Weight: 90.00 kg Tech: FOUZIA Referring MD: ELIZABETH MORENO Site: [facility] Reading Location: [facility] Patient Location: Inpatient. Procedure: 2D, Color Doppler and Spectral Doppler. Indication for study: CHF Cardiac Rhythm: Sinus rhythm with occ PVC's.Study quality: Fair. Imaging limitations: This study was subject to imaging limitations due to suboptimal image quality from the apical and subcostal windows. Final Impressions: 1. Normal left ventricular size, normal wall thickness, normal global and regional systolic function, calculated EF of 61 %. 2. Right ventricular cavity size is normal, global systolic RV function is normal. 3. The aortic valve is trileaflet and sclerotic, no stenosis and mild regurgitation. Comparison Compared to prior exam of 09-01-2021: - Aortic regurgitation has increased. Chamber Sizes and Function Normal left ventricular size, normal wall thickness, normal global systolic function, calculated EF of 61 %. No resting regional wall motion abnormality visualized. Left atrial size is normal. Right ventricular cavity size is normal, global systolic RV function is normal. The right atrium is normal. Right atrial area is 10 cm . The pulmonary artery is not well visualized. The sinus of Valsalva is normal sized. The ascending aorta is normal sized. Valves, RV Pressures and Diastolic Function The aortic valve is trileaflet and sclerotic, no stenosis and mild regurgitation. The mitral valve is sclerotic, trace mitral regurgitation. Indeterminate pattern of LV diastolic filling. The tricuspid valve is normal in structure. Tricuspid regurgitation is trace regurgitation. Unable to assess right ventricular systolic pressure. There is normal estimated pulmonary pressure by tricuspid regurgitation velocity and right atrial pressure. The pulmonic valve is not well visualized. Trace pulmonary regurgitation. Pulmonary veins show a normal flow pattern. Masses, Effusion, Shunts There is no pericardial effusion. The inferior vena cava is not well visualized, respiratory size variation not well visualized. No left to right shunting was detected by limited color flow Doppler interrogation of the interatrial septum. MEASUREMENTS AND CALCULATIONS 2-D Measurements and LV Function: LVID (d) 4.6 cm Planimetered EF 61 % LVID (s) 3.0 cm LV FS% (2D) 34 % IVS (d) 1.0 cm LVOT diameter 2.2 cm LVPW (d) 1.0 cm HR 60 bpm Ao Sinus 3.7 cm LA Vol index 32 ml/m2 Asc Ao 3.3 cm RA area 10 cm LA 3.5 cm RV Max 4C (d) 3.0 cm Diastology: Mitral Tissue Doppler E Peak 0.6 m/s e', Septum 0.06 m/s A Peak 0.7 m/s e', Lateral 0.07 m/s E/A 0.9 E/e' Average 9.23 DT 229 msec Aortic Valve: Vmax 1.2 m/s OLIVIA (V) 3.15 cm VTI 0.24 m OLIVIA (I) 2.92 cm LVOT V max 1.0 m/s Max PG 6 mmHg LVOT VTI 0.19 m Mean PG 3 mmHg SV 70 ml Dim Index 0.78 SV index 34 ml/m CO 4.2 l/min AV Ejection Time 0.30 sec CI 2.1 l/min/m AV Flow Rate 233 ml/s Mitral Valve: MVA 3.3 cm MV P 1/2 66 msec MV Mean G 1 mmHg MV VTI 0.22 m Tricuspid Valve and estimated PA pressures: TAPSE 2.0 cm . This study was interpreted by an [facility] accredited facility. CC: Lee Broderick. Final Procedure Note Jonathan Wong MD - 12/07/2023 ECHOCARDIOGRAM AUTUMN REDDY : 1935 88 years Study Date: 12/07/2023 2:59:29 PM Gender: M BP: 120/64 mmHg Height: 175.00 cm BSA: 2.06 m Weight: 90.00 kg Tech: FOUZIA Referring MD: ELIZABETH MORENO Site: [facility] Reading Location: [facility] Patient Location: Inpatient. Procedure: 2D, Color Doppler and Spectral Doppler. Indication for study: CHF Cardiac Rhythm: Sinus rhythm with occ PVC's.Study quality: Fair. Imaging limitations: This study was subject to imaging limitations due tosuboptimal image quality from the apical and subcostal windows. Final Impressions: 1. Normal left ventricular size, normal wall thickness, normal global andregional systolic function, calculated EF of 61 %. 2. Right ventricular cavity size is normal, global systolic RV functionis normal. 3. The aortic valve is trileaflet and sclerotic, no stenosis and mildregurgitation. Comparison Compared to prior exam of 09-01-2021: - Aortic regurgitation has increased. Chamber Sizes and Function Normal left ventricular size, normal wall thickness, normal globalsystolic function, calculated EF of 61 %. No resting regional wall motionabnormality visualized. Left atrial size is normal. Right ventricularcavity size is normal, global systolic RV function is normal. The rightatrium is normal. Right atrial area is 10 cm . The pulmonary artery isnot well visualized. The sinus of Valsalva is normal sized. The ascendingaorta is normal sized. Valves, RV Pressures and Diastolic Function The aortic valve is trileaflet and sclerotic, no stenosis and mildregurgitation. The mitral valve is sclerotic, trace mitral regurgitation.Indeterminate pattern of LV diastolic filling. The tricuspid valve isnormal in structure. Tricuspid regurgitation is trace regurgitation.Unable to assess right ventricular systolic pressure. There is normalestimated pulmonary pressure by tricuspid regurgitation velocity and rightatrial pressure. The pulmonic valve is not well visualized. Tracepulmonary regurgitation. Pulmonary veins show a normal flow pattern. Masses, Effusion, Shunts There is no pericardial effusion. The inferior vena cava is not wellvisualized, respiratory size variation not well visualized. No left toright shunting was detected by limited color flow Doppler interrogation ofthe interatrial septum. MEASUREMENTS AND CALCULATIONS 2-D Measurements and LV Function: LVID (d) 4.6 cm Planimetered EF 61 % LVID (s) 3.0 cm LV FS% (2D) 34 % IVS (d) 1.0 cm LVOT diameter 2.2 cm LVPW (d) 1.0 cm HR 60 bpm Ao Sinus 3.7 cm LA Vol index 32 ml/m2 Asc Ao 3.3 cm RA area 10 cm LA 3.5 cm RV Max 4C (d) 3.0 cm Diastology: Mitral Tissue Doppler E Peak 0.6 m/s e', Septum 0.06 m/s A Peak 0.7 m/s e', Lateral 0.07 m/s E/A 0.9 E/e' Average 9.23 DT 229 msec Aortic Valve: Vmax 1.2 m/s OLIVIA (V) 3.15 cm VTI 0.24 m OLIVIA (I) 2.92 cm LVOT V max 1.0 m/s Max PG 6 mmHg LVOT VTI 0.19 m Mean PG 3 mmHg SV 70 ml Dim Index 0.78 SV index 34 ml/m CO 4.2 l/min AV Ejection Time 0.30 sec CI 2.1 l/min/m AV Flow Rate 233 ml/s Mitral Valve: MVA 3.3 cm MV P 1/2 66 msec MV Mean G 1 mmHg MV VTI 0.22 m Tricuspid Valve and estimated PA pressures: TAPSE 2.0 cm . This study was interpreted by an [facility] accredited facility. CC: Lee Broderick. Final us Elizabeth Moreno HUMAN RESOURCE ASSISTANT ECHO ORD Fin al Result * LD,TOTAL (12/07/2023 3:22 PM CDT) LD,TOTAL 195 135 - 225 IU/L 12/07/2023 5:01 PM CDT [facility] Blood BLOOD SPECIMEN / Unknown Venipuncture / Unknown 12/07/2023 3:22 PM CDT 12/07/2023 3:25 PM CDT Shiloh Mane MD CHEMISTRY Final Result Performing Organization Address City/[facility]/ZIP Co de Phone Number [facility] [address] [place] [address] * PROTEIN,TOTAL (12/07/2023 3:22 PM CDT) PROTEIN,TOTAL 6.4 6.0 - 8.0 g/dL 12/07/2023 3:43 PM CDT [facility] Blood BLOOD SPECIMEN / Unknown Venipuncture / Unknown 12/07/2023 3:22 PM CDT 12/07/2023 3:25 PM CDT Shiloh Mane MD CHEMISTRY Final Result Performing Organization Address [facility] [[email or web address]] Co de Phone Number [facility] [address] [place] [address] * US CHEST (12/07/2023 11:49 AM CDT) Anatomical Region Laterality Modality CHEST, THORAX, Lung, HEART N/A Ultra sound, Other 12/07/2023 11:5 8 AM CDT Narrative 12/07/2023 11:58 AM CDT For Patients: As a result of the Cures Act, medical imaging exams and procedure reports are released immediately into your electronic medical record. You may view this report before your referring provider. If you have questions, please contact your health care provider. INDICATION: Possible pleural effusion. TECHNIQUE: Ultrasound right chest. FINDINGS: There is a minute linear fluid collection measuring less than 5 mm in depth. Therefore the requested thoracentesis was canceled. Dictated by Wade Hanna MD @ 12/07/2023 11:58:51 AM (Electronically Signed) Procedure Note Jeet Hanna MD - 12/07/2023 For Patients: As a result of the Cures Act, medical imagingexams and procedure reports are released immediately into your electronicmedical record. You may view this report before your referring provider.If you have questions, please contact your health care provider. INDICATION: Possible pleural effusion. TECHNIQUE: Ultrasound right chest. FINDINGS: There is a minute linear fluid collection measuring less than 5 mm indepth. Therefore the requested thoracentesis was canceled. Dictated by Wade Hanna MD @ 12/07/2023 11:58:51 AM (Electronically Signed) us Elizabeth Moreno NP Fin al Result * SCAN-CARDIAC STRIP (12/07/2023 9:55 AM CDT) us Scanner OTHER Final Result * SCAN-CARDIAC STRIP (12/06/2023 9:42 PM CDT) us Scanner OTHER Final Result * (ABNORMAL) CBC WITH AUTO DIFFERENTIAL (12/06/2023 6:06 PM CDT) WHITE BLOOD COUNT 16.5(H) 4.5 - 11.0 thou/cu mm 12/06/2023 7:16 PM [facility] RED BLOOD COUNT 4.51 4.30 - 5.90 mil/cu mm 12/06/2023 7:16 PM [facility] HEMOGLOBIN 15.1 13.5 - 17.5 g/dL 12/06/2023 7:16 PM [facility] HEMATOCRIT 43.5 37.0 - 53.0 % 12/06/2023 7:16 PM [facility] MCV 97 80 - 100 fL 12/06/2023 7:16 PM [facility] MCH 33.5 26.0 - 34.0 pg 12/06/2023 7:16 PM [facility] MCHC 34.7 32.0 - 36.0 g/dL 12/06/2023 7:16 PM [facility] RDW 13.7 11.5 - 15.5 % 12/06/2023 7:16 PM [facility] PLATELET COUNT 180 140 - 440 thou/cu mm 12/06/2023 7:16 PM CDT [facility] MPV 10.6 6.5 - 11.0 fL 12/06/2023 7:16 PM CDT [facility] Blood BLOOD SPECIMEN / Unknown IV Start / Unknown 12/06/2023 6:06 PM CDT 12/06/2023 6:17 PM CDT Dav Vides MD HEMATOLOGY Final Result Performing Organization Address City/[facility]/ZIP Co de Phone Number [facility] [address] [place] [address] * (ABNORMAL) RED CELL MORPHOLOGY (12/06/2023 6:06 PM CDT) ECHINOCYTES Few 12/06/2023 7:16 PM CDT [facility] ELLIPTOCYTES Few 12/06/2023 7:16 PM CDT [facility] RBC COMMENT Present(A ) RBC morphology appears normal, RBC morphology within normal limits for newborns. 12/06/2023 7:16 PM CDT [facility] Blood BLOOD SPECIMEN / Unknown IV Start / Unknown 12/06/2023 6:06 PM CDT 12/06/2023 6:17 PM CDT us Dav Vides MD HEMATOLOGY Final Result Performing Organization Address City/[facility]/ZIP Co de Phone Number [facility] [address] [place] [address] * PLATELET ESTIMATE (12/06/2023 6:06 PM CDT) PLATELET ESTIMATE Adequate Adequate, No estimate 12/06/2023 7:16 PM CDT [facility] Blood BLOOD SPECIMEN / Unknown IV Start / Unknown 12/06/2023 6:06 PM CDT 12/06/2023 6:17 PM CDT Dav Vides MD HEMATOLOGY Final Result [facility] [address] [place] [address] * (ABNORMAL) MANUAL DIFFERENTIAL (12/06/2023 6:06 PM CDT) % NEUTROPHILS 81.0 % 12/06/2023 7:16 PM CDT [facility] % LYMPHOCYTES 9.0 % 12/06/2023 7:16 PM CDT [facility] % MONOCYTES 9.0 % 12/06/2023 7:16 PM T [facility] % EOSINOPHILS 1.0 % 12/06/2023 7:16 PM T [facility] % BASOPHILS 0.0 % 12/06/2023 7:16 PM T [facility] NEUTROPHILS ABSOLUTE 13.4(H) 1.7 - 7.0 thou/cu mm 12/06/2023 7:16 PM CDT [facility] LYMPHOCYTES ABSOLUTE 1.5 0.9 - 2.9 thou/cu mm 12/06/2023 7:16 PM T [facility] MONOCYTES ABSOLUTE 1.5(H) <0.9 thou/cu mm 12/06/2023 7:16 PM T [facility] EOSINOPHILS ABSOLUTE 0.2 <0.5 thou/cu mm 12/06/2023 7:16 PM T [facility] BASOPHILS ABSOLUTE 0.0 <0.3 thou/cu mm 12/06/2023 7:16 PM T [facility] Blood BLOOD SPECIMEN / Unknown IV Start / Unknown 12/06/2023 6:06 PM CDT 12/06/2023 6:17 PM CDT us Dav Vides MD HEMATOLOGY Final Result [facility] [address] [place] [address] * PRO-BNP (12/06/2023 6:06 PM CDT) PRO-BNP 191 <450 pg/mL 12/06/2023 7:01 PM CDT [facility] Blood BLOOD SPECIMEN / Unknown IV Start / Unknown 12/06/2023 6:06 PM CDT 12/06/2023 6:17 PM CDT [facility] - 12/06/2023 7:01 PM CDT The following cut-points have been suggested for the use of proBNP for the diagnostic evaluation of heart failure (HF) in patient with acute dyspnea. Patients with eGFR >= 60 Diagnosis (rule in CHF) <50 Years Old 450 pg/mL 50 - 75 Years Old 900 pg/mL >75 Years Old 1800 pg/mL Exclusion (rule out CHF) Age Independent 300 pg/mL A cutoff of 1200 pg/mL for patients with an eGFR <60 yields a diagnostic sensitivity of 89% and specificity of 72% for acute congestive heart failure. us Elizabeth Moreno NP SEND OUTS Fin al Result [facility] [address] [place] [address] * (ABNORMAL) BASIC METABOLIC PANEL (12/06/2023 6:06 PM CDT) SODIUM 141 136 - 145 mmol/L 12/06/2023 7:01 PM [facility] POTASSIUM 3.8 3.5 - 5.1 mmol/L 12/06/2023 7:01 PM [facility] CHLORIDE 103 98 - 107 mmol/L 12/06/2023 7:01 PM [facility] CO2,TOTAL 30(H) 22 - 29 mmol/L 12/06/2023 7:01 PM [facility] ANION GAP 8 5 - 18 12/06/2023 7:01 PM [facility] GLUCOSE 113(H) 70 - 99 mg/dL 12/06/2023 7:01 PM CDT [facility] CALCIUM 9.2 8.8 - 10.2 mg/dL 12/06/2023 7:01 PM T [facility] BUN 29(H) 8 - 23 mg/dL 12/06/2023 7:01 PM T [facility] CREATININE 1.06 0.70 - 1.20 mg/dL 12/06/2023 7:01 PM T [facility] BUN/CREAT RATIO 27(H) 10 - 20 7:01 PM T [facility] eGFR 68(L) >90 mL/min/1.7 3m2 12/06/2023 7:01 PM T [facility] Comment:As of 2021, eG FR is calculated by the CKD-EPI creatinine equation without race adjustment. eGFR can be influenced by muscle mass, exercise, and diet. The reported eGFR is an estimation only and is only applicable if the renal function is stable. Blood BLOOD SPECIMEN / Unknown IV Start / Unknown 12/06/2023 6:06 PM CDT 12/06/2023 6:17 PM CDT Dav Vides MD CHEMISTRY Final Result [facility] [address] [place] [address] * XR CHEST 2 VIEWS PA AND LATERAL (12/06/2023 5:05 PM CDT) Anatomical Region Laterality Modality CHEST, THORAX, Lung, HEART Digit al Radiography 12/06/2023 5:20 PM CDT Impressions 12/06/2023 5:20 PM CDT Moderate right and small left pleural effusions with compressive atelectasis. Dictated by Jeet Young MD @ 12/06/2023 5:20:01 PM (Electronically Signed) Narrative 12/06/2023 5:20 PM CDT For Patients: As a result of the Cures Act, medical imaging exams and procedure reports are released immediately into your electronic medical record. You may view this report before your referring provider. If you have questions, please contact your health care provider. INDICATION: Hypoxia. TECHNIQUE: Chest 2 views. COMPARISON: August 27, 2022. FINDINGS: Cardiovascular and mediastinum: Stable heart size and vasculature. Lungs and pleural spaces: Moderate right and small left pleural effusions. No pneumothorax. Bones and soft tissues: No significant findings. Procedure Note Jeet Young MD - 12/06/2023 For Patients: As a result of the Cures Act, medical imagingexams and procedure reports are released immediately into your electronicmedical record. You may view this report before your referring provider.If you have questions, please contact your health care provider. INDICATION: Hypoxia. TECHNIQUE: Chest 2 views. COMPARISON: August 27, 2022. FINDINGS: Cardiovascular and mediastinum: Stable heart size and vasculature. Lungs and pleural spaces: Moderate right and small left pleuraleffusions. No pneumothorax. Bones and soft tissues: No significant findings. IMPRESSION: Moderate right and small left pleural effusions with compressiveatelectasis. Dictated by Jeet Young MD @ 12/06/2023 5:20:01 PM (Electronically Signed) Dav Vides MD GENERAL IMAGING Final Result * (ABNORMAL) URINALYSIS MICROSCOPIC (12/06/2023 3:44 PM CDT) RBC 3-5(A) 0-2, None Seen /HPF 12/06/2023 4:28 PM CDT [facility] WBC 11-25(A) 0-2, 3-5, None Seen /HPF 12/06/2023 4:28 PM CDT [facility] BACTERIA Many(A) None Seen, Rare, Few Bacteria/ HPF 12/06/2023 4:28 PM CDT [facility] EPITHELIAL CELLS Few None Seen, Few Epi/HPF 12/06/2023 4:28 PM T [facility] TRIPLE PHOSPHATE CRYSTALS Present(A) (none) 12/06/2023 4:28 PM T [facility] Urine URINE SPECIMEN / Unknown Non-Blood / Unknown 12/06/2023 3:44 PM CDT 12/06/2023 3:55 PM CDT Dav Vides MD URINE Final Result [facility] [address] [place] [address] * (ABNORMAL) URINE CULTURE (12/06/2023 3:44 PM CDT) CULTURE RESULT(A) 12/08/2023 7:07 AM CDT [facility] CULTURE >100,000 CFU/mL Proteus mirabilis 12/08/2023 7:07 AM CDT [facility] Urine URINE SPECIMEN / Unknown Non-Blood / Unknown 12/06/2023 3:44 PM CDT 12/06/2023 3:55 PM CDT Narrative Organism Antibiotic Method Susceptibility Proteus mirabilis TRIMETHOPRIM/SULF <=1/19: S Proteus mirabilis AMPICILLIN <=2: S Proteus mirabilis CEFAZOLIN 4: I Proteus mirabilis CEFAZOLIN-UC 4: S Comment:Cefazolin-UC interpretations are for therapy of uncomplicated UTIs due to E.coli, K.pneumoniae, or P.mirablis. Cefazolin breakpoint is used as a surrogate to predict results for the oral agents - cefdinir, cefuroxime, and cephalexin, when used for therapy of uncomplicated UTIs due to E coli, K, pneumoniae, and P. mirabilis. The FDA recommends cefadroxil susceptibility can be deduced from cefazolin. Proteus mirabilis GENTAMICIN <=1: S Proteus mirabilis CEFTRIAXONE <=0.25: S Proteus mirabilis CEFTAZIDIME <=0.5: S Proteus mirabilis LEVOFLOXACIN <=0.12: S Proteus mirabilis CIPROFLOXACIN <=0.06: S Proteus mirabilis PIPERACILLIN/TAZO <=4: S Proteus mirabilis AMPICILLIN/SULBACTAM <=2: S Proteus mirabilis CEFEPIME <=0.12: S Proteus mirabilis MEROPENEM <=0.25: S Proteus mirabilis NITROFURANTOIN 128: R us Dav Vides MD MICROBIOLOGY Final Result [facility] [address] [place] [address], [place] * (ABNORMAL) UA W/ SEDIMENT EXAM REFLEXED PER CRITERIA (12/06/2023 3:44 PM CDT) COLOR Yellow Yellow Color 12/06/2023 3:58 PM [facility] CLARITY Cloudy(A) Clear Clarity 12/06/2023 3:58 PM [facility] SPECIFIC GRAVITY,URINE 1.020 1.010, 1.015, 1.020, 1.025 12/06/2023 3:58 PM [facility] PH,URINE 8.0 6.0, 7.0, 8.0, 5.5, 6.5, 7.5, 8.5 12/06/2023 3:58 PM [facility] UROBILINOGEN, QUALITATIVE Normal Normal EU/dl 12/06/2023 3:58 PM [facility] PROTEIN, URINE 30(A) Negative mg/dL 12/06/2023 3:58 PM [facility] GLUCOSE, URINE Negative Negative mg/dL 12/06/2023 3:58 PM [facility] KETONES,URINE Negative Negative mg/dL 12/06/2023 3:58 PM [facility] BILIRUBIN,URI NE Negative Negative 12/06/2023 3:58 PM [facility] OCCULT BLOOD,URINE Large(A) Negative 12/06/2023 3:58 PM [facility] NITRITE Positive(A) Negative 12/06/2023 3:58 PM [facility] LEUKOCYTE ESTERASE Large(A) Negative 12/06/2023 3:58 PM [facility] Urine URINE SPECIMEN / Unknown Non-Blood / Unknown 12/06/2023 3:44 PM CDT 12/06/2023 3:55 PM CDT Dav Vides MD URINE Final Result [facility] [address] [place] [address] from Last 3 Months Insurance MEDICARE PART B HB ONLY MEDICARE PART A HB ONLY [employer] BLUE HB ONLY [employer] BLUE MR PB ONLY Advance Directives Documents on File Type Date Recorded Patient Paper Inspector Expl anation Healthcare Directive 12/07/2023 024 Healthcare Directive 08/13/2014 12:00 AM 08/08/14 * DNR (Latest Code Status on File) Date Activated Date Inactivated Comments 12/07/2023 9:39 AM 12/08/2023 1:10 PM Question Answer Comments Code Status Discussion: Reviewed Preferences * Full Code Date Activated Date Inactivated Comments 12/06/2023 8:35 PM 12/07/2023 9:39 AM Question Answer Comments Code Status Discussion: Reviewed Preferences * Full Code Date Activated Date Inactivated Comments 06/14/2012 10:18 AM 06/16/2012 1:47 PM * Full Code Date Activated Date Inactivated Comments 10/20/2007 6:40 PM 10/23/2007 4:59 PM Care Teams Petrophysicist Relationship Specialty Start Date End Date Lee Broderick MD [address] [place] [address] PCP - General Family Practice 07/02/20 Vira Green AuD Audiology 09/11/12
--- OUTSIDE RECORDS SUMMARY | 2024-02-28 21:24 | XMS_ITS | Encounter Summary ---
Author Name [facility] [place] Organization [facility] [place] [facility] [place] Address [address] [place] [address] Insurance Providers: All historical and current Section Date Range: From patient's date of to the date document was created. This section includes the names of all active insurance providers for the patient. Insurance Provider Type of Coverage Plan Name Start of Policy Coverage End of Policy Coverage Group Number Member ID Insurance Provider's Telephone Number Policy Barlow's Name Patient's Relationship to Policy Barlow [facility] MCR (WNR) MEDICARE ADVANTAGE MCR (WNR) Feb 07, 2010 [id number] [phone] ZAN REDDY PATIENT Selected Encounter This section includes the information on record at [place] for the Encounter. Date/Time Encounter Type Encounter Description Reason Provider Source Oct 20, 2023 10:30 AM HEARING AID FITTING/CHECKIN G AUDIOLOGY ICD-10-CM H90.3 Sensorineural hearing loss, bilateral ISABELLE DOMÍNGUEZ Brittani Encounter Template Text not used by [place] Assessments - Encounter Diagnoses This section includes [...] EXP COSIGNER: URGENCY: STATUS: COMPLETED C-SSRS Screening Bates-Suicide Severity Rating Scale (C-SSRS Screener) 1. Over [...] to other questions. /bessie/ Ar Real Ph.D. Director Of Strategy & Mobile Chief, Audiology Signed: 10/20/2023 10:41 ISABELLE DOMÍNGUEZ [facility] Oct 20, 2023 10:26 AM AUDIOLOGY NOTE: LOCAL TITLE: AUDIOLOGY CLINIC NOTE STANDARD TITLE: AUDIOLOGY NOTE DATE OF NOTE: OCT 20, 2023@10:26 ENTRY DATE: OCT 20, 2023@10:26:41 AUTHOR: ISABELLE DOMÍNGUEZ EXP COSIGNER: URGENCY: STATUS: COMPLETED AMAYA Follow-up - 10/20/23 Patient Name: Autumn Reddy Age: 88 Right ear: Audeo [id number] SN: [id number] Left ear: Audeo L90-RL SN: [id number] S: Gunnison presented to clinic today for follow-up, noting [...] follow-up is necessary at this time. The Gunnison was instructed to make an appointment with the audiology clinic if new issues arise with his hearing aids, or sooner if he detects a change in his hearing. This treatment plan was discussed with the patient. The patient verbally demonstrated an understanding of the information provided and actively participated in the treatment plan. /bessie/ Ar Real Ph.D. Director Of Strategy & Mobile Chief, Audiology Signed: 10/20/2023 10:38 ISABELLE DOMÍNGUEZ [facility]
--- OUTSIDE RECORDS SUMMARY | 2024-02-28 21:24 | XMS_ITS | Clinical Summary ---
Author Organization [facility] Address [address] [place] [address] Care Team Providers Care Meal Room Hand Name Role Phone Elsewhere, Pcp Primary Care Provider Unavailabl e Source Comments Patient records contain information from all sites at [facility]. For routine questions regarding patient records, call [phone] during business hours, M-F 8:00 AM - 5:00 PM Central Time. 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 Kellie Kc R.N. Nurse Visit; Removal / Exchange Catheter 01/13/2024 9:00 AM FARM GENERAL MANAGER Office Visit Department of Urology in [place], [place] [address] [facility] [place] [address] Kennedi Dan APRN, C.N.P. 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 Primary Malignant Neoplasm Of Prostate (HCC) (Primary Dx); Retention Urinary from Last 3 Months Immunizations Immunization Administration Dates Next Due H1N1 [...] 0.6 oz pur e alcohol) [facility] Answer Date Recorded In the past 12 months has e [employer], gas, oil, or water [employer] threatened to shut off services in your [...] often do you attend chur ch or worship services? More than 4 times per year [...] 0 09/21/2018 [facility] - Occupational [...] your living situation today? I have a [facility] place to live 06/22/2023 Education Answer Date Recorded What is the highest level of school you have completed or the highest degree you have received? 12th grade 06/09/2022 Sex and Gender Information Value Date Recorded Sex Assigned at Male 01/03/2018 1:26 PM FARM GENERAL MANAGER Legal Sex Male 4:09 AM FARM GENERAL MANAGER Gender Identity Not on file Sexual Orientation Straight 01/03/2018 1: 26 PM FARM GENERAL MANAGER Last Filed Vital Signs Vital Sign Reading [...] st Contact Info) Description 03/12/2024 9:30 AM FARM GENERAL MANAGER Nurse Only Department of Urology in [address] [phone] Kennedi Dan, EDDI, C.N.P. [address] [place] [address] 04/09/2024 10:30 AM FARM GENERAL MANAGER Nurse Only Department of Urology in [place], [place] [address] [place], [place] [address] Kennedi Dan, EDDI, C.N.P. [address] [phone] Health Maintenance Due Date Last Done Comments DTaP,Tdap,and Td Vaccines (2 - Td or Tdap) 06/14/2023 06/13/2013, 05/13/2008 Depression Screening (Annual PHQ-2) 02/08/2024 Fall Risk Screen (Annual) 02/08/2024 Creatinine Level (Kidney Function Test) 12/07/2024 12/08/2023, 12/07/2023, 12/06/2023, Additional history exists Potassium Level 12/07/2024 12/08/2023, 11/09, 12/06/2023, Additional history exists Sodium Level 12/07/2024 12/08/2023, 11/09, 12/06/2023, Additional history exists Zoster Vaccines Completed 11/06/2018, 08/08, 02/11/2011 Pneumococcal vaccine (50+ years) Completed 08/27/2022, 07/03/2014, 05/22/2008, Additional history exists RSV vaccine - (32-36 weeks) or 60+ years Completed 12/07/2022 COVID-19 Vaccine Completed 12/23/2023, , 08/27/2022, Additional history exists Influenza Vaccine Completed 12/23/2023, , 10/26/2021, Additional history exists IPV Vaccines Aged Out No longer eligi ble based on patient's age to complete this topic Medical Devices Implanted Type Area Property Field Adjuster Device Identifier Shelf Expiration Date Model / Serial / Lot Infuse Bmp Xxsmall - [id number] [id number] Implanted:Qty: 1 on 10/26/2016 Bone or Tissue Other/Legacy - See Implant Description Other/Legacy - See Implant Description Description:Device Manufactu rer - [employer]. Body Location - Other. arthrodesis. Device Status Text - [id number]. Stimublast Dbm Gel 5cc - Rosado [id number] Implanted:Qty: 1 on 10/26/2016 Bone or Tissue Other/Legacy - See Implant Description Arthrex Description:Device Manufactu rer - Ar[employer]rex. Body Location - Other. arthrodesis. Device Status Text - [id number]. Stnt Synergy Art Rx3.5x16 - [id number] Implanted:Qty: 1 on 03/06/2018 by Farheen Branch M.D. at [facility] Cardiac Stent N/A: Coronary [employer] 12/07/2019 [id number] / / [id number] Description:pRCA Simmetry Screw 12.5mm X 80 - Rosado [id number] Implanted:Qty: 1 on 10/26/2016 Hardware e.g. pins/screws /rods Other/Legacy - See Implant Description [employer] Description:Device Manufactu rer - [employer]. Body Location - Other. Right. Device Status Text - [id number]. Simmetry Washer 12.5mm - Rosado [id number] Implanted:Qty: 1 on 10/26/2016 Hardware e.g. pins/screws /rods Other/Legacy - See Implant Description [employer] Technology Description:Device Manufactu rer - [employer]. Body Location - Other. Right. Device Status Text - [id number]. Conversions - Default Historical Implant Device Implanted:10/26 (Quantity not on file) Misc Other Abdomen Description:Body Location - Abdominal. Device Status Text - MiscOther. mesh from hernia repair. 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 02/13/2024 10:46 AM Bladder Catheterization Performed by: Kellie Kc R.N. Authorized by: Kennedi Dan APRN, C.N.PBony PROCEDURE DETAILS Catheter insertion: suprapubic Suprapubic catheter [...] completed successfully: yes Complications: no immediate complications Kennedi Dan APRN, C.N.P. PROCEDURE/MINOR S URGICAL ORDERABLES Final Result MMODAL NA * Bladder Catheterization (01/13/2024 9:00 AM FARM GENERAL MANAGER) Narrative MMODAL - 01/13/2024 9:00 AM FARM GENERAL MANAGER Kennedi Dan APRN, C.N.P. 02/08/2024 9:14 PM Bladder Catheterization Performed by: Kennedi Dan APRN, C.N.PBony Authorized by: Kennedi Dan APRN C.N.P. Care team members present 1. Kennedi Dan [...] medication. All questions answered. us Faiza Flynn APRNNBonyPBony PROCEDURE/MINOR S URGICAL ORDERABLES Final Result MMODAL NA * Bladder Catheterization (12/12/2023 10:30 AM FARM GENERAL MANAGER) Narrative MMODAL - 12/12/2023 10:30 AM FARM GENERAL MANAGER Kennedi Dan APRN, C.N.P. 12/12/2023 9:18 PM Bladder Catheterization Performed by: Kennedi Dan APRN C.N.PBony Authorized by: Kennedi Dan APRN, C.N.PBony Care [...] to 18 Fr SP, patient tolerated well. 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 See document viewer. * Full Code (Latest Code Status on File) Date Activated Date Inactivated Comments 03/06/2018 2:36 PM 03/06/2018 9:26 PM Question Answer Comments Full Code: Not Discussed Due to: Patient not available Care Teams Meal Room Hand Relationship Specialty Start Date End Date Elsewhere, Pcp PCP - General Family Medicine 06/08/22
--- OUTSIDE RECORDS SUMMARY | 2024-02-28 21:24 | XMS_ITS | Encounter Summary ---
Author Organization [facility] Address [address] [place] [address] Care Team Providers Care Desk Clerks Supervisor Name Role Phone Elsewhere, Pcp Primary Care Provider Unavailabl e Reason for Referral * Outpatient (Routine) - Closed Specialty Diagnoses / Procedures Referred By Contgisell t Referred To Contact Pulmonary Medicine Diagnoses Restrictive Lung Disease Dyspnea On Exertion Abel Gomez M.D. Phone: tel: fax: [facility] Referral ID Status Reason Start Date Expiration Date Visits Re quested Visits Authorized [id number] Closed 11/09/2017 11/09/2018 1 1 Encounter Details Date Type Department Care Team (Late st Contact Info) Description 11/09/2017 [facility] [address] [place] [address] Abel Gomez M.D. [address] [place] [phone] Restrictive Lung Disease (Primary Dx); Dyspnea On Exertion Social History Tobacco Use Types Packs/Day Years Used Date Smoking Tobacco: Former Sex and Gender Information Value Date Recorded Sex Assigned at Male 01/03/2018 1:26 PM TELEVISION MAINTENANCE WORKER Legal Sex Male 4:09 AM TELEVISION MAINTENANCE WORKER Gender Identity Not on file Sexual Orientation Straight 01/03/2018 1: 26 PM TELEVISION MAINTENANCE WORKER documented as of this encounter Plan of Treatment Upcoming Encounters Date Type Department Care Team (Late st Contact Info) Description 03/12/2024 9:30 AM TELEVISION MAINTENANCE WORKER Nurse Only Department of Urology in [place], [place] [address] [place] [address] Kennedi Dan APRN, C.N.P. [address] [place] [phone] 04/09/2024 10:30 AM TELEVISION MAINTENANCE WORKER Nurse Only Department of Urology in [place], [place] [address] [place] [address] Kennedi Dan APRN, C.N.P. [address] [phone] Scheduled Referrals Name Type Priority Associated Diagnoses Orde r Schedule Pulmonary Medicine Referral Outpatient Referral Routine Restrictive Lung Disease Dyspnea On Exertion Expected: 11/09/2017 (Approximate), Expires: 11/09/2020 documented as of this encounter Visit Diagnoses Diagnosis Restrictive Lung Disease- Primary Dyspnea On Exertion documented in this encounter Care Teams Desk Clerks Supervisor Relationship Specialty Start Date End Date Elsewhere, Pcp PCP - General Family Medicine 06/08/22 documented as of this encounter
--- OUTSIDE RECORDS SUMMARY | 2024-02-28 21:24 | XMS_ITS ---
Author Organization [facility] Address [address] [place] [address] Care Team Providers Care Presser And Shaper Knitted Goods Name Role Phone Unavailable Unavailable Unavailable Surgery Details Not on file Complications Check Surgery Details section. Procedure Estimated Blood Loss Check Surgery Details section. Procedure Findings Check Surgery Details section. Procedure Specimens Taken Check Surgery Details section.
--- OUTSIDE RECORDS SUMMARY | 2024-02-28 21:24 | XMS_ITS | Encounter Summary ---
Author Organization [facility] Address [address] [place] [address] Care Team Providers Care Room Cleaner Name Role Phone Elsewhere, Pcp Primary Care Provider Unavailabl e Reason for Referral * Outpatient (Routine) - Authorized Specialty Diagnoses / Procedures Referred By Contac t Referred To Contact Diagnoses Retention Urinary Procedures Bladder Catheterization Kennedi Dan APRN, C.N.P. [address] [address] Phone: tel: fax: [facility] Region Referral ID Status Reason Start Date Expiration Date V isits Requested Visits Authorized [id number] Authorized 02/13/2024 02/12/2025 1 1 MASON TENDER Reason for Visit * Reason Comments Nurse Visit Removal / Exchange Catheter * Outpatient (Routine) - Authorized Specialty Diagnoses / Procedures Referred By Contac t Referred To Contact Urology Kennedi Dan APRN, C.N.P. [address] [address] Phone: tel: fax: [facility] Region Referral ID Status Reason Start Date Expiration Date V isits Requested Visits Authorized [id number] Authorized 12/12/2023 06/12/2025 12 12 Encounter Details Date Type Department Care Team (Late st Contact Info) Description 02/13/2024 10:30 AM LEAD MASON TENDER Nurse Only Department of Urology in [place], [place] [address] [facility] [phone] Kennedi Dan APRN, C.N.P. [address] [place] [phone] Kellie Kc RBonyNBony [address] [place] [phone] Nurse Visit; Removal / Exchange Catheter Social History Tobacco Use Types Packs/Day Years Used Date Smoking Tobacco: Former Cigarettes 1 25 0 02/08/1956 - 02/07/1981 Passive Smoke Exposure: Past Smokeless Tobacco: Never Chew Quit: 03/03/1981 Passive Exposure Comments:No t for Years Alcohol Use Standard Drinks/Week Comments Yes 7 (1 standard drink = 0.6 oz pur e alcohol) [facility] [employer] Answer Date Recorded In the past 12 months has [employer], or water [employer] threatened to shut off services in your [...] week 06/09/2022 How often do you attend [facility] or episcopal services? More than 4 times per year 06/09/2022 Do you belong to any clubs o r organizations such as latter day groups, unions, fraternal or athletic groups, or [...] Score 0 09/21/2018 [facility] [place] [facility] - Occupational Stress Questionnaire Answer Date [...] Sex Assigned at Male 01/03/2018 1:26 PM LEAD MASON TENDER Legal Sex Male 4:09 AM LEAD MASON TENDER Gender Identity Not on file Sexual Orientation Straight 01/03/2018 1: 26 PM LEAD MASON TENDER documented as of this encounter Procedure Notes * Kellie Kc RBonyN. - 02/13/2024 10:30 AM CSTAssociated Order(s): Bladder Catheterization Post-Procedure Diagnose(s): Retention Urinary Bladder Catheterization Performed by: Kellie Kc RPablo Authorized by: Kennedi Dan APRN, C.N.P. PROCEDURE [...] completed successfully: yes Complications: no immediate complications MASON TENDER documented in this encounter Plan of Treatment Upcoming Encounters Date Type Department Care Team (Late st Contact Info) Description 03/12/2024 9:30 AM LEAD MASON TENDER Nurse Only Department of Urology in [place], [place] [address] [place] [phone] Kennedi Dan APRN, C.N.P. [address] [place] [phone] 04/09/2024 10:30 AM LEAD MASON TENDER Nurse Only Department of Urology in [address] [phone] Kennedi Dan APRN, C.N.P. [address] [place] [phone] documented as of this encounter Procedures Procedure Name Priority Date/Time Associated Diagnosis Comments BLADDER CATHETERIZATION Routine 02/12/19 10:30 AM LEAD MASON TENDER Retention Urinary documented in this encounter Results * Bladder Catheterization (02/13/2024 10:30 AM LEAD MASON TENDER) Narrative MMODAL - 02/13/2024 10:30 AM LEAD MASON TENDER Kellie Kc R.N. 02/13/2024 10:46 AM Bladder Catheterization Performed by: Kellie Kc RPablo Authorized by: Kennedi Dan APRN, C.N.P. PROCEDURE [...] successfully: yes Complications: no immediate complications us Kennedi Dan APRN, C.N.P. PROCEDURE/MINOR S URGICAL ORDERABLES Final Result MMODAL NA documented in this encounter Visit Diagnoses Diagnosis Retention Urinary- Primary documented in this encounter Care Teams Room Cleaner Relationship Specialty Start Date End Date Elsewhere, Pcp PCP - General Family Medicine 06/08/22 documented as of this encounter
[2024-02-28 22:20] VITALS: BP 109/61; PULSE 80; RESP 16; TEMP 36.5; O2SAT 93; BMI 28.7
--- NOTE | 2024-02-28 22:37 | ED.GENADULT ---
HPI - General Adult General Chief complaint: Laceration/Wound Stated complaint: Needs stitches left finger, fell Time Seen by Provider: 02/28/24 22:37 History of Present Illness HPI narrative: pt fell when attempting to get to the bleachers of the [employer] [place] game . Pt fell backwards, caught his finger on something. Finger was bleeding, currently wrapped with a band aide and not bleeding. Pt has no other complaints or known injuries. Pt has history of COPD , sats during triage 91-93%, pt has no respiratory complaint. 88-year-old man presenting to the emergency department following a tumble from the bleachers at a basketball game. As he fell backwards caught his finger. This is his left 5th finger. No other injuries sustained. Does not recall hitting his head. There was no loss of consciousness. No chest pain or shortness of breath earlier sensation of palpitations. No lower leg pain. Has not been feeling unusually week. Underlying history of COPD and sleep apnea. Saturations noted to be 93% on arrival. This is consistent with prior on review of records. Related Data Home Medications ?Medication ?Instructions ?Recorded ?Confirmed atorvastatin 40 mg tablet 40 mg PO HS 08/28/21 10/03/23 triamterene 37.5 1 cap PO DAILY 08/28/21 10/03/23 mg-hydrochlorothiazide 25 mg capsule warfarin 2 mg tablet 4 - 6 mg PO DAILY 08/28/21 10/03/23 losartan 50 mg tablet 50 mg PO DAILY 10/03/23 10/03/23 metoprolol succinate 25 mg 25 mg PO DAILY 10/03/23 10/03/23 tablet,extended release 24 hr nitroglycerin 0.4 mg sublingual 0.4 mg sublingual angina 10/03/23 tablet Previous Rx's ?Medication ?Instructions ?Recorded amoxicillin 875 mg-potassium 1 tab PO BID #14 tabs 10/04/23 clavulanate 125 mg tablet Allergies Allergy/AdvReac Type Severity Reaction Status Date / Time codeine Allergy Mild Verified 05/11/22 09:09 Review of Systems Status of ROS: Reports: 6 or more systems reviewed and unremarkable except as noted in History and below [facility] Medical History Suprapubic catheter ?Z93.59 - Other cystostomy status (ICD-10) ISAAC (obstructive sleep apnea) ?G47.33 - Obstructive sleep apnea (adult) (pediatric) (ICD-10) History of vertigo (09/26/06) ?Z87.898 - Personal history of other specified conditions (ICD-10) History of poliomyelitis (02/06/09) ?Z86.12 - Personal history of poliomyelitis (ICD-10) History of pneumothorax (02/06/09) ?Z87.09 - Personal history of other diseases of the respiratory system (ICD-10) History of malignant neoplasm of skin (10/15/09) ?Z85.828 - Personal history of other malignant neoplasm of skin (ICD-10) History of diverticulitis (10/16/07) ?Z87.19 - Personal history of other diseases of the digestive system (ICD-10) History of deep venous thrombosis (06/05/12) ?Z86.718 - Personal history of other venous thrombosis and embolism (ICD-10) History of colonic polyps (09/2019) ?Z86.010 - Personal history of colonic polyps (ICD-10) Aspiration, chronic pulmonary ?T17.908A - Unspecified foreign body in respiratory tract, part unspecified causing other injury, initial encounter (ICD-10) Sublingual abscess ?K12.2 - Cellulitis and abscess of mouth (ICD-10) Trouble swallowing ?R13.10 - Dysphagia, unspecified (ICD-10) Anticoagulant long-term use ?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 (ICD-10) Neck abscess ?L02.11 - Cutaneous abscess of neck (ICD-10) Pneumothorax ?J93.9 - Pneumothorax, unspecified (ICD-10) COPD (chronic obstructive pulmonary disease) ?J44.9 - Chronic obstructive pulmonary disease, unspecified (ICD-10) Asbestosis ?J61 - Pneumoconiosis due to asbestos and other mineral fibers (ICD-10) History of prostate cancer ?Z85.46 - Personal history of malignant neoplasm of prostate (ICD-10) Insomnia ?G47.00 - Insomnia, unspecified (ICD-10) Paroxysmal atrial fibrillation ?I48.0 - Paroxysmal atrial fibrillation (ICD-10) Congestive heart failure ?I50.9 - Heart failure, unspecified (ICD-10) Hyperlipidemia ?E78.5 - Hyperlipidemia, unspecified (ICD-10) 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 - Presbycusis, unspecified ear (ICD-10) Hypertension ?I10 - Essential (primary) hypertension (ICD-10) ASCVD (arteriosclerotic cardiovascular disease) ?I25.10 - Atherosclerotic heart disease of nome coronary artery without angina pectoris (ICD-10) Surgical History History of right inguinal hernia repair (02/06/09) ?Z98.890 - Other specified postprocedural states (ICD-10) ?Z87.19 - Personal history of other diseases of the digestive system (ICD-10) History of right coronary artery stent placement (03/06/18) ?Z95.5 - Presence of coronary angioplasty implant and graft (ICD-10) History of lumbar discectomy (06/14/12) ?Z98.890 - Other specified postprocedural states (ICD-10) History of colonoscopy (09/18/19) ?Z98.890 - Other specified postprocedural states (ICD-10) History of colonoscopy ?Z98.890 - Other specified postprocedural states (ICD-10) History of appendectomy ?Z90.49 - Acquired absence of other specified parts of digestive tract (ICD-10) History of laparoscopic cholecystectomy ?Z90.49 - Acquired absence of other specified parts of digestive tract (ICD-10) Hx of CABG ?Z95.1 - Presence of aortocoronary bypass graft (ICD-10) Social History Narrative: , six kids, retired, former smoker What is your current living situation?: I presently have a place to live Problems where you live: no known problems Problems where you live details: NA In the past 12 months, utilities in danger of being shut off: no In past 12 months, lack of transportation kept you from medical appts, meetings, work, or getting things needed for daily living: no In the past 12 mos, have been you worried that your food would run out before you had money to buy more?: never true In the past 12 mos, the food you bought just didn't last and you didn't have money to buy more?: never true Smoking Status: Never smoker Do you use any of these nicotine containing products: None Second hand tobacco smoke exposure: No How often do you have a drink containing alcohol: 4 or more times a week Alcohol type: beer Alcohol type details: 1 beer/day How many standard drinks containing alcohol do you have on a typical day: 1 or 2 How often do you have six or more drinks on one occasion: Never AUDIT-C Alcohol total score: 4 Non-prescribed substance use: denies use Caffeine: No How often does anyone, including family, friends and others, physically hurt you: never How often does anyone, including family, friends and others, insult or talk down to you: never How often does anyone, including family, friends and others, threaten you with harm: never How often does anyone, including family, friends and others, scream or curse at you: never service: Yes Exam Narrative: Exam Narrative: Presents here with friend. Cranial nerves 2-12 are intact. GCS 15. Head looks atraumatic. Neck is supple nontender. Back nontender. Lungs appear to be clear. Heart in regular rate and rhythm with I think occasional ectopic beat. Abdomen is soft and nontender. Catheter in place with clear yellow urine. Extremity injury seems to include only a laceration to the left 5th finger. This is on the ulnar side distal phalanx. J-shaped laceration inch and 1/4 once bandage is initially soaked and then able to be removed. Full dermal flap. Const: Vital Signs, click to edit/add: Vital Signs - 24 hr 02/28/24 22:20 Temperature 97.7 F Pulse Rate [Left P ulse Oximeter] 80 Respiratory Rate 16 Blood Pressure [Ri ght Upper Arm] 109/61 Pulse Oximetry 93 Oxygen Delivery Me thod Room Air Documenting provider has reviewed patient's vital signs: yes Course Vital Signs Vital signs: Initial Vital Signs Temperature 97.7 F 02/28/24 22:20 Temperature Source Temporal Artery Scan 02/28/24 22:20 Pulse Rate 80 02/28/24 22:20 Pulse Rhythm Regular 02/28/24 22:20 Respiratory Rate 16 02/28/24 22:20 Blood Pressure 109/61 02/28/24 22:20 Blood Pressure Mean 77 02/28/24 22:20 Blood Pressure Position Sitting 02/28/24 22:20 Pulse Oximetry 93 02/28/24 22:20 Oxygen Delivery Method Room Air 02/28/24 22:20 Vital Signs Temperature 97.7 F 02/28/24 22:20 Pulse Rate 80 02/28/24 22:20 Respiratory Rate 16 02/28/24 22:20 Blood Pressure 109/61 02/28/24 22:20 Pulse Oximetry 93 02/28/24 22:20 Oxygen Delivery Method Room Air 02/28/24 22:20 Temperature 97.7 F 02/28/24 22:20 Pulse Rate 80 02/28/24 22:20 Respiratory Rate 16 02/28/24 22:20 Blood Pressure 109/61 02/28/24 22:20 Pulse Oximetry 93 02/28/24 22:20 Oxygen Delivery Method Room Air 02/28/24 22:20 Medical Decision Making MDM Narrative Medical decision making narrative: Does not appear to require any intervention or care other than repairing this finger. Able to flex and extend fully. Digital block was placed initially and then soaked to remove bandage. Digital block was done with 1% lidocaine total of 1.5 mL. Full wound anesthesia achieved. Had been soaked in a Hibiclens and water solution. Further scrubbed. I repaired this with 5 0 Ethilon interrupted sutures. Good wound approximation achieved. Antibiotic ointment and Band-Aid placed. Tolerated well. See patient discharge plan for further discussion Medical Records Medical records reviewed: Yes I reviewed the patient's medical records Discharge Plan Discharge Clinical Impression: Finger laceration Patient Disposition: Home w/ Parent or Adult Condition: Improved Additional Instructions: Elevate for comfort. Ibuprofen, acetaminophen. sutures out in 10 days. antibiotic ointment for 5-6 days and then to a dry dressing. ok to get wet but try not to soak while sutures are in. Watch for spreading redness after 2 days accompanied by heat, swelling, marked increase in pain, purulent drainage. Prescriptions: No Action losartan 50 mg tablet 50 mg PO DAILY metoprolol succinate 25 mg tablet extended release 24 hr 25 mg PO DAILY nitroglycerin 0.4 mg tablet, sublingual 0.4 mg sublingual amoxicillin-pot clavulanate 875-125 mg tablet 1 tab PO BID Qty: 14 0RF atorvastatin 40 mg tablet 40 mg PO HS triamterene-hydrochlorothiazid 37.5-25 mg capsule 1 cap PO DAILY Patient Comments: TAKE 1 CAPSULE BY MOUTH EVERY MORNING warfarin 2 mg tablet 4 - 6 mg PO DAILY Rx Instructions: 6 MG ON TUESDAY AND 4 MG OTHER DAYS OR DIRECTED Follow Up/Referrals: Lee Broderick MD [Primary Care Provider] - Stand Alone Forms: [employer] Info Instructions
--- NOTE | 2024-02-28 22:58 | ED.NURSE ---
pt finger soaking per order
--- OUTSIDE RECORDS SUMMARY | 2024-02-28 23:15 | XMS_ITS | Continuity of Care Document ---
Author Name [facility] Organization [facility] Care Team Providers [facility] Location Manager Name Role Phone [facility] Unavailable Unavailable Problems Combined list of problems from [facility] of [facility] and [facility] facilities. It does not include entries that were removed or entered in error. Problem Status Onset Date Problem Type Date of Resolution Comments Source Diagnosis: ICD-10-CM H90.3 Sensorineural hearing loss, bilateral Active Diagnosis [facility] Diagnosis: ICD-10-CM Z46.1 Encounter for fitting and adjustment of hearing aid Active Diagnosis [facility] Diagnosis: ICD-10-CM Z01.118 Encntr for exam of ears and hearing w oth abnormal findings Active Diagnosis [facility] Encounters Combined list of: 1) Encounters from [facility] facilities going back up to thelast 18 months. 2) Encounters from the Department of [facility] facilities going back up to 280 months. Location Location Details Encounter Type Encounter Number Reason For Visit Attending Provider ADM Date DC Date Status Disposition Source [facility] Outpatient Encounter [id number] 06/19 [facility] HEARING AID EXAM BOTH EARS [id number] Diagnos is: ICD-10- CM Z01.118 Encntr for exam of ears and hearing w oth abnorma l finding s
CHAYITO NORIEGA OL T 07/11 [facility] IS [facility] CONFORMITY EVALUATION [id number] Diagnos is: ICD-10- CM Z46.1 Encount er for fitting and adjustm ent of hearing aid<br/ > PEREZ HAIDER 08/15 [facility] HEARING AID FITTING/CH ECKING [id number] Diagnos is: ICD-10- CM H90.3 Sensori neural hearing loss, bilater al
ERNIE DOMÍNGUEZ F 10/19 [facility]
--- OUTSIDE RECORDS SUMMARY | 2024-02-28 23:15 | XMS_ITS | Clinical Summary ---
Author Organization [employer] [facility] [employer] [facility] Address [place], [place] [address] Care Team Providers Care Instructional Facilitator Name Role Phone Vira Green Unavailable [phone] Lee Broderick MD Primary Care Provider Allergies [...] 12/11/23 Hypoxia 12/06/2023 Suprapubic catheter placed 08/25/23 [place] 09/02/19 Prostate cancer 02/21/2023 Asbestosis 07/22/2021 Chronic obstructive pulmonary disease 06/09/2021 Restrictive lung disease 06/09/2021 CAD in [place] artery: JANEY to RCA 2018. 2 Anticoagulation [...] patient. Now with recurrence - transferred from [place] due to failure to resolve Diverticulosis of colon (dani costa mention of hemorrhage) 05/29/2006 07/29/2020 HX OF DVT 05/29/2006 07/29/2020 Overview (10/20/2007): 10 yrs ago, s/p leg injury Emphysematous bleb 9 Dyspepsia and other specifie d disorders of function of stomach 07/29/2020 Nocturia 07/29/2020 Encounters Date Type Department Care Team Description 02/23/2024 10:00 AM ASSEMBLY STOCK SUPERVISOR Procedure Only [facility] [address] [place] [address] Nany Guzmán L Ac Acupuncture 02/23/2024 Travel 02/20/2024 2:45 PM ASSEMBLY STOCK SUPERVISOR Orders Only [facility] [address] [facility] [place] [address] Lab, [facility] 02/20/2024 Anticoagulation (warfarin) [facility] [address] [place] [address] 1, [facility] Anticoagulation 02/20/2024 Travel 02/16/2024 10:00 AM ASSEMBLY STOCK SUPERVISOR Procedure Only [facility] [address] [place] [address] Nany Guzmán L Ac Acupuncture 02/15/2024 Travel 02/09/2024 10:00 AM ASSEMBLY STOCK SUPERVISOR Procedure Only [facility] [address] [place] [address] Nany Guzmán L Ac Acupuncture (Initial) 02/08/2024 Travel 02/07/2024 Telephone [facility] [address] [facility] [place] [address] Lee Broderick MD Acupuncture Referral Request (appt 02/09/24) 01/23/2024 Refill [facility] [address] [place] [address] Lee Broderick MD Refill Request (Warfarin 2 mg) 01/20/2024 11:50 AM ASSEMBLY STOCK SUPERVISOR Orders [place] [address] [place] [address] Lab, [facility] 01/20/2024 Anticoagulation (warfarin) [facility] [address] [place] [address] 1, [facility] Anticoagulation 01/20/2024 Travel 01/10/2024 11:10 AM ASSEMBLY STOCK SUPERVISOR Orders Only [address] [address] Lab, [facility] 01/10/2024 Anticoagulation (warfarin) [facility] [address] [place] [address] 1, [facility] Anticoagulation 01/10/2024 Travel 12/26/2023 3:00 PM ASSEMBLY STOCK SUPERVISOR Orders Only [facility] [address] [place] [address] Lab, [facility] 12/26/2023 Anticoagulation (warfarin) [facility] [address] [place] [address] 1, [facility] Anticoagulation 12/26/2023 Telephone [facility] [address] [place] [address] Lee Broderick MD Anticoagulation (Annual re-enrollment- Warfarin) 12/26/2023 Travel 12/19/2023 Telephone [facility] [address] [place] [address] Lee Broderick MD Anticoagulation (CHART UPDATE/INR OVERDUE REMINDER #1 ) 12/12/2023 2:55 PM ASSEMBLY STOCK SUPERVISOR Office Visit [facility] [address] [place] [address] Lee Broderick MD Hospital F/U ([facility], 12/06/2023 - 12/08/2023, urinary problem); ER Follow up ([place] [facility], 12/11/2023, COPD ) 12/12/2023 Travel 12/11/2023 Orders Only [facility] Scanner 1 scan: (1-Ord) [facility], CHEST 2V, 12/11/2023 12/09/2023 Patient Outreach [facility] [address] [place] [address] Ammy Winslow, RN Primary RN Care Management; Hospital F/U ([facility]) 12/08/2023 Telephone [facility] [address] [place] [address] Lee Broderick MD Anticoagulation (Lab orders ) 12/06/2023 2:53 PM CDT - 12/08/2023 11:05 AM CDT Hospital Encounter [facility] [address] [place] [address] Dav Vides MD Beardsley, Elizabeth Salazar, IT ADMIN Shiloh Mane MD Berglund, Srinivas Maxwell MD [...] Care 12/06/2023 2:45 PM CDT Office Visit [facility] [address] [place] [address] Catheter Problem (No output from flores catheter [...] on file Legal Sex Male 6:14 AM ASSEMBLY STOCK SUPERVISOR Gender Identity Not on file Sexual Orientation Not on file Occupation Industry Job Start Date Job End Date Not on file Not on file Not on file Not on file Obstetrics History Last Filed Vital Signs Vital Sign Reading Time Taken Comments Blood Pressure 109/75 12/12/2023 2:55 PM ASSEMBLY STOCK SUPERVISOR Pulse 84 12/12/2023 2:55 PM ASSEMBLY STOCK SUPERVISOR Temperature 36.7 C (98.1 F) 12/08/2023 8:00 AM CDT Respiratory Rate 14 12/08/2023 8:00 AM CDT Oxygen Saturation 95% 12/12/2023 2:55 PM ASSEMBLY STOCK SUPERVISOR Inhaled Oxygen Concentration - - Weight 91.2 kg (201 lb) 12/12/2023 2:55 PM ASSEMBLY STOCK SUPERVISOR Height 176.5 cm (5' 9.49) 12/06/2023 4:08 PM CD T Body Mass Index 29.27 12/06/2023 4:08 PM CDT Plan of Treatment Upcoming Encounters Date Type Department Care Team (Late st Contact Info) Description 03/01/2024 10:00 AM ASSEMBLY STOCK SUPERVISOR Procedure Only [facility] [address] [place] [address] Nany Guzmán L [address] [place] [address] 03/05/2024 10:30 AM ASSEMBLY STOCK SUPERVISOR Orders Only [facility] [address] [place] [address] Jasbir Hernandezi 03/08/2024 8:30 AM ASSEMBLY STOCK SUPERVISOR Procedure Only [facility] [address] [facility] [place] [address] Nany Guzmán L [address] [place] [address] Health Maintenance Due Date Last Done Comments [...] history exists Medical Devices Implanted Type Area Photoradio Operator Device Identifier Shelf Expiration Date Model / Serial / Lot Mesh Prolene Hernia Extended System - [id number] Implanted:Qty: 1 on 10/21/2007 at [facility] General Surgery Implants Right: Abdomen [employer] (SUTURE) [facility] / [id number] Procedures Procedure Name Priority Date/Time Associated Diagnosis Comments ACUPUNCTURE PLAN OF CARE Routine 02/23/2024 9:50 AM ASSEMBLY STOCK SUPERVISOR Mechanical back pain Other low back pain ACUPUNCTURE PLAN OF CARE Routine 02/20/2024 3:07 PM ASSEMBLY STOCK SUPERVISOR Mechanical back pain Other low back pain INR,POCT Routine 02/20/2024 3:06 PM ASSEMBLY STOCK SUPERVISOR Paroxysmal A-fib (HC) Anticoagulation monitoring, INR range 2-3 ACUPUNCTURE PLAN OF CARE Routine 02/16/2024 10:01 AM ASSEMBLY STOCK SUPERVISOR Mechanical back pain Other low back pain PROTIME-INR Routine 01/20/2024 11:35 AM ASSEMBLY STOCK SUPERVISOR Paroxysmal A-fib (HC) Anticoagulation monitoring, INR range 2-3 PROTIME-INR Routine 01/10/2024 11:20 AM ASSEMBLY STOCK SUPERVISOR Paroxysmal A-fib (HC) Anticoagulation monitoring, INR range 2-3 INR,POCT Routine 12/26/2023 2:57 PM ASSEMBLY STOCK SUPERVISOR Paroxysmal A-fib (HC) Anticoagulation monitoring, INR range [...] Months Results * (ABNORMAL) INR - POCT [05862.2] - Standing Order (02/20/2024 3:06 PM ASSEMBLY STOCK SUPERVISOR) Only the most recent of2 resultswithin the time period is included. INR 1.4(H) ratio [facility] Comment: INRs >2.9 may be falsely elevated [...] PROTHROMBIN TIMEP 17.3(H) 10.5 - 13.1 sec [facility] Comment: Point of care fingerstick Prothrombin Time/INR results may vary from venous Prothrombin Time/INR methodologies. Any results exhibiting inconsistency with the patient's clinical status should be repeated using a venous Prothrombin Time/INR method. Blood BLOOD SPECIMEN / Unknown 02/20/2024 3:06 PM ASSEMBLY STOCK SUPERVISOR 02/20/2024 3:06 PM ASSEMBLY STOCK SUPERVISOR us Lee Broderick MD LABORATORY Final Result [facility] [address] [place] [address], [facility] [address] [place] [address] * (ABNORMAL) PROTIME-INR [[id number]] - Standing Order (01/20/2024 11:35 AM ASSEMBLY STOCK SUPERVISOR) Only the most recent of5 resultswithin the time period is included. INR 2.9(H) <1.3 01/20/2024 12:18 PM ASSEMBLY STOCK SUPERVISOR [facility] PROTIME 33.5(H) 10.6 - 12.4 sec 01/20/2024 12:18 PM ASSEMBLY STOCK SUPERVISOR [facility] Blood BLOOD SPECIMEN / Unknown [facility] / Unknown 01/20/2024 11:35 AM ASSEMBLY STOCK SUPERVISOR 01/20/2024 11:48 AM ASSEMBLY STOCK SUPERVISOR Narrative [facility] - 01/20/2024 12:18 PM ASSEMBLY STOCK SUPERVISOR Therapeutic Range 2.0-3.0 for most anticoagulated patients [...] us Lee Broderick MD HEMATOLOGY Final Result [facility] [address] [place] [address] * SCAN-RADIOLOGY REPORT (12/11/2023 12:00 AM CDT) Anatomical Region Laterality Modality Other us Scanner OTHER Final Result * SCAN-CARDIAC STRIP (12/08/2023 8:10 AM CDT) us Scanner OTHER Final Result * WHITE BLOOD COUNT (12/08/2023 5:54 AM CDT) Only the most recent of2 resultswithin the time period is included. WHITE BLOOD COUNT 10.6 4.5 - 11.0 thou/cu mm 12/08/2023 6:52 AM CDT [facility] Blood BLOOD SPECIMEN / Unknown Venipuncture / Unknown 12/08/2023 5:54 AM CDT 12/08/2023 6:47 AM CDT Elizabeth Moreno IT ADMIN HEMATOLOGY Fin al Result Performing Organization Address City/[facility] Co de Phone Number [facility] [address] [place] [address] * (ABNORMAL) BUN (12/08/2023 5:54 AM CDT) BUN 29(H) 8 - 23 mg/dL 12/08/2023 7:20 AM CDT [facility] Blood BLOOD SPECIMEN / Unknown Venipuncture / Unknown 12/08/2023 5:54 AM CDT 12/08/2023 6:47 AM CDT Elizabeth Moreno IT ADMIN CHEMISTRY Fin al Result Performing Organization Address [facility] de Phone Number [facility] [address] [place] [address] * SODIUM (12/08/2023 5:54 AM CDT) Only the most recent of2 resultswithin the time period is included. SODIUM 139 136 - 145 mmol/L 12/08/2023 7:20 AM CDT [facility] Blood BLOOD SPECIMEN / Unknown Venipuncture / Unknown 12/08/2023 5:54 AM CDT 12/08/2023 6:47 AM CDT Elizabeth Moreno IT ADMIN CHEMISTRY Fin al Result Performing Organization Address City/[facility] Co de Phone Number [facility] [address] [place] [address] * POTASSIUM (12/08/2023 5:54 AM CDT) Only the most recent of2 resultswithin the time period is included. POTASSIUM 3.6 3.5 - 5.1 mmol/L 12/08/2023 7:20 AM CDT [facility] Blood BLOOD SPECIMEN / Unknown Venipuncture / Unknown 12/08/2023 5:54 AM CDT 12/08/2023 6:47 AM CDT Elizabeth Moreno IT ADMIN CHEMISTRY Fin al Result Performing Organization Address [facility] Co de Phone Number [facility] [address] [place] [address] * (ABNORMAL) CREATININE (12/08/2023 5:54 AM CDT) Only the most recent of2 resultswithin the time period is included. eGFR 78(L) >90 mL/min/1.7 3m2 12/08/2023 7:20 AM CDT [facility] Comment:As of 2021, eG FR is calculated by the CKD-EPI creatinine equation without race adjustment. eGFR can be influenced by muscle mass, exercise, and diet. The reported eGFR is an estimation only and is only applicable if the renal function is stable. CREATININE 0.94 0.70 - 1.20 mg/dL 12/08/2023 7:20 AM CDT [facility] Blood BLOOD SPECIMEN / Unknown Venipuncture / Unknown 12/08/2023 5:54 AM CDT 12/08/2023 6:47 AM CDT Elizabeth Moreno IT ADMIN CHEMISTRY Fin al Result Performing Organization Address [facility] de Phone Number [facility] [address] [place] [address] * (ABNORMAL) CO2,TOTAL (12/08/2023 5:54 AM CDT) CO2,TOTAL 36(H) 22 - 29 mmol/L 12/08/2023 7:20 AM CDT [facility] Blood BLOOD SPECIMEN / Unknown Venipuncture / Unknown 12/08/2023 5:54 AM CDT 12/08/2023 6:47 AM CDT Elizabeth Moreno IT ADMIN CHEMISTRY Fin al Result [facility] [address] [place] [address] * ECHO TTE COMPLETE WO CONTRAST (12/07/2023 [...] Tech: FOUZIA Referring MD: ELIZABETH MORENO Site: [facility] Reading Location: [facility] Patient Location: Inpatient. Procedure: [...] Tech: FOUZIA Referring MD: ELIZABETH MORENO Site: [facility] Reading Location: [facility] Patient Location: Inpatient. Procedure: 2D, Color Doppler [...] . This study was interpreted by an [facility] accredited facility. CC: Lee Broderick. Final us Elizabeth Moreno IT ADMIN ECHO ORD Fin al Result * LD,TOTAL (12/07/2023 3:22 PM CDT) LD,TOTAL 195 135 - 225 IU/L 12/07/2023 5:01 PM CDT [facility] Blood BLOOD SPECIMEN / Unknown Venipuncture / Unknown 12/07/2023 3:22 PM CDT 12/07/2023 3:25 PM CDT Shiloh Mane MD CHEMISTRY Final Result Performing Organization Address City/[facility]/ZIP Co de Phone Number [facility] [address] [place] [address] * PROTEIN,TOTAL (12/07/2023 3:22 PM CDT) PROTEIN,TOTAL 6.4 6.0 - 8.0 g/dL 12/07/2023 3:43 PM CDT [facility] Blood BLOOD SPECIMEN / Unknown Venipuncture / Unknown 12/07/2023 3:22 PM CDT 12/07/2023 3:25 PM CDT Shiloh Mane MD CHEMISTRY Final Result Performing Organization Address [facility] Co de Phone Number [facility] [address] [place] [address] * US CHEST (12/07/2023 11:49 AM CDT) [...] - 11.0 thou/cu mm 12/06/2023 7:16 PM [facility] RED BLOOD COUNT 4.51 4.30 - 5.90 mil/cu mm 12/06/2023 7:16 PM [facility] HEMOGLOBIN 15.1 13.5 - 17.5 g/dL 12/06/2023 7:16 PM [facility] HEMATOCRIT 43.5 37.0 - 53.0 % 12/06/2023 7:16 PM [facility] MCV 97 80 - 100 fL 12/06/2023 7:16 PM [facility] MCH 33.5 26.0 - 34.0 pg 12/06/2023 7:16 PM [facility] MCHC 34.7 32.0 - 36.0 g/dL 12/06/2023 7:16 PM [facility] RDW 13.7 11.5 - 15.5 % 12/06/2023 7:16 PM [facility] PLATELET COUNT 180 140 - 440 thou/cu mm 12/06/2023 7:16 PM CDT [facility] MPV 10.6 6.5 - 11.0 fL 12/06/2023 7:16 PM CDT [facility] Blood BLOOD SPECIMEN / Unknown IV Start / Unknown 12/06/2023 6:06 PM CDT 12/06/2023 6:17 PM CDT Dav Vides MD HEMATOLOGY Final Result Performing Organization Address City/[facility]/ZIP Co de Phone Number [facility] [address] [place] [address] * (ABNORMAL) RED CELL MORPHOLOGY (12/06/2023 6:06 PM CDT) ECHINOCYTES Few 12/06/2023 7:16 PM CDT [facility] ELLIPTOCYTES Few 12/06/2023 7:16 PM CDT [facility] RBC COMMENT Present(A ) RBC morphology appears normal, RBC morphology within normal limits for newborns. 12/06/2023 7:16 PM CDT [facility] Blood BLOOD SPECIMEN / Unknown IV Start / Unknown 12/06/2023 6:06 PM CDT 12/06/2023 6:17 PM CDT us Dav Vides MD HEMATOLOGY Final Result Performing Organization Address City/[facility]/ZIP Co de Phone Number [facility] [address] [place] [address] * PLATELET ESTIMATE (12/06/2023 6:06 PM CDT) PLATELET ESTIMATE Adequate Adequate, No estimate 12/06/2023 7:16 PM CDT [facility] Blood BLOOD SPECIMEN / Unknown IV Start / Unknown 12/06/2023 6:06 PM CDT 12/06/2023 6:17 PM CDT Dav Vides MD HEMATOLOGY Final Result [facility] [address] [place] [address] * (ABNORMAL) MANUAL DIFFERENTIAL (12/06/2023 6:06 PM CDT) % NEUTROPHILS 81.0 % 12/06/2023 7:16 PM CDT [facility] % LYMPHOCYTES 9.0 % 12/06/2023 7:16 PM CDT [facility] % MONOCYTES 9.0 % 12/06/2023 7:16 PM T [facility] % EOSINOPHILS 1.0 % 12/06/2023 7:16 PM T [facility] % BASOPHILS 0.0 % 12/06/2023 7:16 PM T [facility] NEUTROPHILS ABSOLUTE 13.4(H) 1.7 - 7.0 thou/cu mm 12/06/2023 7:16 PM CDT [facility] LYMPHOCYTES ABSOLUTE 1.5 0.9 - 2.9 thou/cu mm 12/06/2023 7:16 PM T [facility] MONOCYTES ABSOLUTE 1.5(H) <0.9 thou/cu mm 12/06/2023 7:16 PM T [facility] EOSINOPHILS ABSOLUTE 0.2 <0.5 thou/cu mm 12/06/2023 7:16 PM T [facility] BASOPHILS ABSOLUTE 0.0 <0.3 thou/cu mm 12/06/2023 7:16 PM T [facility] Blood BLOOD SPECIMEN / Unknown IV Start / Unknown 12/06/2023 6:06 PM CDT 12/06/2023 6:17 PM CDT us Dav Vides MD HEMATOLOGY Final Result [facility] [address] [place] [address] * PRO-BNP (12/06/2023 6:06 PM CDT) PRO-BNP 191 <450 pg/mL 12/06/2023 7:01 PM CDT [facility] Blood BLOOD SPECIMEN / Unknown IV Start / Unknown 12/06/2023 6:06 PM CDT 12/06/2023 6:17 PM CDT [facility] LABORATORY - 12/06/2023 7:01 PM CDT The [...] Moreno NP SEND OUTS Fin al Result [facility] [address] [place] [address] * (ABNORMAL) BASIC METABOLIC PANEL (12/06/2023 6:06 PM CDT) SODIUM 141 136 - 145 mmol/L 12/06/2023 7:01 PM [facility] POTASSIUM 3.8 3.5 - 5.1 mmol/L 12/06/2023 7:01 PM [facility] CHLORIDE 103 98 - 107 mmol/L 12/06/2023 7:01 PM [facility] CO2,TOTAL 30(H) 22 - 29 mmol/L 12/06/2023 7:01 PM [facility] ANION GAP 8 5 - 18 12/06/2023 7:01 PM [facility] GLUCOSE 113(H) 70 - 99 mg/dL 12/06/2023 7:01 PM CDT [facility] CALCIUM 9.2 8.8 - 10.2 mg/dL 12/06/2023 7:01 PM T [facility] BUN 29(H) 8 - 23 mg/dL 12/06/2023 7:01 PM T [facility] CREATININE 1.06 0.70 - 1.20 mg/dL 12/06/2023 7:01 PM T [facility] BUN/CREAT RATIO 27(H) 10 - 20 7:01 PM T [facility] eGFR 68(L) >90 mL/min/1.7 3m2 12/06/2023 7:01 PM T [facility] Comment:As of 2021, eG [...] CDT Dav Vides MD CHEMISTRY Final Result [facility] [address] [place] [address] * XR CHEST 2 VIEWS PA AND [...] None Seen /HPF 12/06/2023 4:28 PM CDT [facility] WBC 11-25(A) 0-2, 3-5, None Seen /HPF 12/06/2023 4:28 PM CDT [facility] BACTERIA Many(A) None Seen, Rare, Few Bacteria/ HPF 12/06/2023 4:28 PM CDT [facility] EPITHELIAL CELLS Few None Seen, Few Epi/HPF 12/06/2023 4:28 PM T [facility] TRIPLE PHOSPHATE CRYSTALS Present(A) (none) 12/06/2023 4:28 PM T [facility] Urine URINE SPECIMEN / Unknown Non-Blood / Unknown 12/06/2023 3:44 PM CDT 12/06/2023 3:55 PM CDT Dav Vides MD URINE Final Result [facility] [address] [place] [address] * (ABNORMAL) URINE CULTURE (12/06/2023 3:44 PM CDT) CULTURE RESULT(A) 12/08/2023 7:07 AM CDT [facility] CULTURE >100,000 CFU/mL Proteus mirabilis 12/08/2023 7:07 AM CDT [facility] Urine URINE SPECIMEN / Unknown [...] us Dav Vides MD MICROBIOLOGY Final Result [facility] [address] [place] [address], [place] * (ABNORMAL) UA W/ SEDIMENT EXAM REFLEXED PER CRITERIA (12/06/2023 3:44 PM CDT) COLOR Yellow Yellow Color 12/06/2023 3:58 PM [facility] CLARITY Cloudy(A) Clear Clarity 12/06/2023 3:58 PM [facility] SPECIFIC GRAVITY,URINE 1.020 1.010, 1.015, 1.020, 1.025 12/06/2023 3:58 PM [facility] PH,URINE 8.0 6.0, 7.0, 8.0, 5.5, 6.5, 7.5, 8.5 12/06/2023 3:58 PM [facility] UROBILINOGEN, QUALITATIVE Normal Normal EU/dl 12/06/2023 3:58 PM [facility] PROTEIN, URINE 30(A) Negative mg/dL 12/06/2023 3:58 PM [facility] GLUCOSE, URINE Negative Negative mg/dL 12/06/2023 3:58 PM [facility] KETONES,URINE Negative Negative mg/dL 12/06/2023 3:58 PM [facility] BILIRUBIN,URI NE Negative Negative 12/06/2023 3:58 PM [facility] OCCULT BLOOD,URINE Large(A) Negative 12/06/2023 3:58 PM [facility] NITRITE Positive(A) Negative 12/06/2023 3:58 PM [facility] LEUKOCYTE ESTERASE Large(A) Negative 12/06/2023 3:58 PM [facility] Urine URINE SPECIMEN / Unknown Non-Blood / Unknown 12/06/2023 3:44 PM CDT 12/06/2023 3:55 PM CDT Dav Vides MD URINE Final Result [facility] [address] [place] [address] from Last 3 Months Insurance MEDICARE PART B HB ONLY MEDICARE PART A HB ONLY [employer] BLUE HB ONLY [employer] BLUE MR PB ONLY Advance Directives Documents on File Type Date Recorded Patient Credit Control Assistant Expl anation Healthcare Directive 12/07/2023 024 Healthcare [...] 6:40 PM 10/23/2007 4:59 PM Care Teams Instructional Facilitator Relationship Specialty Start Date End Date Lee Broderick MD [address] [place] [address] PCP - General Family Practice 07/02/20 Vira Green [facility] Audiology 09/11/12
--- OUTSIDE RECORDS SUMMARY | 2024-02-28 23:16 | XMS_ITS ---
Author Organization [facility] Address [address] [place] [address] Care Team Providers Care Crude Oil Driver Name Role Phone Unavailable Unavailable Unavailable Surgery Details Not on file Complications Check Surgery Details section. Procedure Estimated Blood Loss Check Surgery Details section. Procedure Findings Check Surgery Details section. Procedure Specimens Taken Check Surgery Details section.
--- OUTSIDE RECORDS SUMMARY | 2024-02-28 23:16 | XMS_ITS | Continuity of Care Document ---
Author Organization [facility] Address [address] [place] [address] Phone Care Team Providers Care Gyroscope Repairer Name Role Phone Will Dilip CASTELLANOS Unavailable [...] Drug Urine Toxology With Chromatography OFFICE/OUTPATIENT VISIT, [facility] PT-FOCUSED HLTH RISK ASSMT Advance Directives Directive Yes / No Effective Date File Name No Information Encounters Encounter Description Practice Location Reason(s) For Visit Diagnoses Date Provider Providers Copied on Encounter [facility], [address] [place], [place], [id number], [place] tel:[phone] [facility] No Information 2 Ren Cherry. [address] [place], [place], [id number] , [place]. tel:[phone] OFFICE/OUTPAT IENT VISIT, [facility], [address] [place], [place], [id number], [place] tel:[phone] [facility] Pain [facility] Back Pain (chief complaint) Chronic pain syndromeOther intervertebral disc degeneration, lumbar regionRadiculopa thy, lumbar regionOther cervical disc degeneration, unsp cervical regionRadiculopa thy, cervical regionEncounter for therapeutic drug level monitoringLong term (current) use of opiate analgesic 0 Clayton Aponte. [address] [facility] [address], [place], [place], [id number] , [place]. tel:[phone] Referring Provider: Hitesh Akbar [facility] [address], [place], [address]. tel:[phone] [facility], [address] [place], [place], [id number], [place] tel:[phone] [facility] Pain [facility] No Information 0 Clayton Aponte. [address] [facility] [address], [place], [place], [address] , [place]. [phone] Family History Family Member Type Diagnosis Age At Onset No Information Payers Payer name Insurance type Covered democrat ID Authoriza tipatricia(s) [facility] Medicare Replacement [id number] Social History Type Description Quantity Date Captured Comments Sex Male Smoking Status No Information Chief Complaint And Reason For Visit No Information Reason For Referral Reason For Referral No Information Plan Of Treatment Date Type Action Status Future Order: Lab Order Drug Ilnda t Def 22+ Classes ([id number]), Ordered on: Ordered History Of Present Illness Encounter Date Complaint History Of Prese nt Illness Back Pain (comments) Peña is here for [...] ISIS. He has completed an MRI at [facility] this February. His is present today and contributed to today's OV.Treatment Tried:ibuprofen, Tylenol - [place] helpfulESI [place] - not helpfulLumbar RFA at [facility] 2018 - he does not recall if he had the same pain or different - was over 80% pain relief for over 6 months pain reliefTENS - helps some PT March 2018Pt goal: [facility] to take over pain management, particularly interested in medical cannabis.Denies history of mental health and mental health hospitalizations. Back Pain Severity level i s 7. Duration: chronic. It occurs persistently. Location of pain is lower back.The patient describes the pain as stabbing. Symptoms are aggravated by bending, changing positions, lifting, lying/rest, standing, twisting, walking and movement. Symptoms are relieved by sitting. Functional Status Date Functional Assessmen t No Information Instructions Date Instruction Additional Infor mation No Information Assessments Type Assessment Date No Information Patient Care Teams Name Effective Dates (start - stop) Status Members No Information
--- OUTSIDE RECORDS SUMMARY | 2024-02-28 23:16 | XMS_ITS | Continuity of Care Document ---
Author Organization [facility] Address [address] [place] [address] Phone Care Team Providers Care Gold Reclaimer Name Role Phone Eben Chacon MD Unavailable [...] Remove Lumbar Spine Lamina, 1 Seg Office/Outpatient Visit,[facility], Mod 2012 Office/outpatient visit,est, low 2010 Office/outpatient visit,[facility], mod 2010 X-ray exam lwr spine, min 4 views Advance Directives Directive Yes / No Effective Date File Name No Information Encounters Encounter Description Practice Location Reason(s) For Visit Diagnoses Date Provider Providers Copied on Encounter [facility], [address], [place], [place], [id number], [place] tel:[phone] [facility] No Information 7 Ines Treadwell. [facility], [address], [facility] [address], [place], [place], [id number], [place]. tel:[phone] Office/Outpa tient Visit,Est, Mod [facility], [address], [place], [place], [id number], [place] tel:[phone] [facility] OverweightSp inal stenosis, lumbar regionOther intervertebr al disc displacement , lumbar region Dec- 5 Transfeldt Ensor. [facility], [address] [place] [address], [facility] [address], [place], [id number], [place]. tel:[phone] Referring Provider: Hitesh Lawrence, [address], [address]. tel:[phone] [facility] [place], [address] [place] [address], [address], [place] tel:[phone] [facility] No Information 3 Transfeldt Ensor. [facility] [place], [address], [address], [id number], [place]. tel:[phone] Referring Provider: Abel Benoit, [facility] [address] [place], [address]. tel:[phone] Office/Outpa tient Visit,New, Mod Z [facility] [place], [address] [place] [address], [address], [place] tel:[phone] [facility] No Information 3 Transfeldt Ensor. [facility] [place], [address], [address], [id number], [place]. tel:[phone] Referring Provider: Abel Benoit, [facility] [address] [place], [address]. tel:[phone] Z [facility] [place], [address] [place] [address], [address], [place] tel:[phone] [facility] No Information 3 Eckroth Fletcher. [address] [place] [address], [id number], [place]. tel:[phone] Office/outpa tient visit,est, low Z [facility], [address] [place], [place] [address], [place], [address], [place] tel:[phone] [facility] No Information Transfeldt Ensor. [facility], [address] [place] [address], [facility] [address], [place], [place], [id number], [place]. tel:[phone] Referring Provider: Abel Benoit, [facility] [address] [place], [address]. tel:[phone] Office/outpa tient visit,new, [facility] Z [facility], [address] [place] [address], [place], [address], [place] tel:[phone] [facility] No Information 1 Dario Bynum. [address], [id number], [place]. tel:[phone] Referring Provider: Abel Benoit, [facility] [address] [place], [address]. tel:[phone] Z [facility], [address] [place] [address], [address], [place] tel:[phone] [facility] back pain (chief complaint) Hypertension , UnspecifiedH ypercholeste rolemia No Information Referring Provider: Abel Benoit, [facility] [address] [place], [address]. tel:[phone] Family History Family Member Type Diagnosis Age At Onset Problem (finding) Family history of Cance r Problem (finding) Family history of Low b ack problems Payers Payer name Insurance type Covered republican ID Authoriza tion(s) [id number] Medicare [facility] [id number] Social History Type Description Quantity Date Captured Comments Sex Male Smoking Status No Information Chief Complaint And Reason For Visit No Information Reason For Referral Reason For Referral No Information History Of Present Illness Encounter Date Complaint History Of Prese nt Illness No Information Functional Status Date Functional Assessmen t No Information Instructions Date Instruction Additional Infor nataliia Weight Management [facility] to [facility]: R efer to Referral to General Practitioner timeframe: 1 Month. Related to Overweight Assessments Type Assessment Date No Information Patient Care Teams Name Effective Dates (start - stop) Status Members No Information
--- OUTSIDE RECORDS SUMMARY | 2024-02-28 23:16 | XMS_ITS | Clinical Summary ---
Author Organization [facility] Address [address] [place] [address] Care Team Providers Care Paint Coating Machine Operator Name Role Phone Elsewhere, Pcp Primary Care Provider Unavailabl e Source Comments Patient records contain information from all sites at [facility]. For routine questions regarding patient records, call [phone] during business hours, M-F 8:00 AM - 5:00 PM Central Time. 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 Kellie Kc R.N. Nurse Visit; Removal / Exchange Catheter 01/13/2024 9:00 AM BARREL SCRAPER Office Visit Department of Urology in [place], [place] [address] [place] [address] Kennedi Dan APRN, C.N.P. 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 Primary Malignant Neoplasm [...] drink = 0.6 oz pur e alcohol) [facility] [employer] Answer Date Recorded In the past 12 months has e enModus, gas, oil, or water [employer] threatened to shut off services in your [...] any clubs o r organizations such as holiness groups, unions, fraternal or athletic groups, or [...] Answer Date Recorded PHQ-2 Score 0 09/21/2018 [facility] - [...] your living situation today? [facility] 06/22/2023 Education Answer Date Recorded What is the highest level of school you have completed or the highest degree you have received? 12th grade 06/09/2022 Sex and Gender Information Value Date Recorded Sex Assigned at Male 01/03/2018 1:26 PM BARREL SCRAPER Legal Sex Male 4:09 AM BARREL SCRAPER Gender Identity Not on file Sexual Orientation Straight 01/03/2018 1: 26 PM BARREL SCRAPER Last Filed Vital Signs Vital Sign Reading [...] st Contact Info) Description 03/12/2024 9:30 AM BARREL SCRAPER Nurse Only Department of Urology in [address] [phone] Kennedi Dan, EDDI, C.N.P. [address] [place] [address] 04/09/2024 10:30 AM BARREL SCRAPER Nurse Only Department of Urology in [place], [place] [address] [place], [place] [address] Kennedi Dan, EDDI, C.N.P. [address] [address] Health Maintenance Due Date Last [...] this topic Medical Devices Implanted Type Area Web Software Engineer Device Identifier Shelf Expiration Date Model / Serial / Lot Infuse Bmp Xxsmall - [id number] [id number] Implanted:Qty: 1 on 10/26/2016 Bone or Tissue Other/Legacy - See Implant Description Other/Legacy - See Implant Description Description:Device Manufactu rer - [employer]. Body Location - Other. arthrodesis. Device Status Text - [id number]. Stimublast Dbm Gel 5cc - Rosado [id number] Implanted:Qty: 1 on 10/26/2016 Bone or Tissue Other/Legacy - See Implant Description Arthrex Description:Device Manufactu rer - Arthrex. Body Location - Other. arthrodesis. Device Status Text - [id number]. Stnt Synergy Art Rx3.5x16 - [id number] Implanted:Qty: 1 on 03/06/2018 by Farheen Branch M.D. at [facility] Cardiac Stent N/A: Coronary [employer] 12/07/2019 [id number] / / [id number] Description:pRCA Simmetry Screw 12.5mm X 80 - Rosado [id number] Implanted:Qty: 1 on 10/26/2016 Hardware e.g. pins/screws /rods Other/Legacy - See Implant Description Zyga Technology Description:Device Manufactu rer - Z[employer]ga [employer] Inc. Body Location - Other. Right. Device Status Text - [id number]. Simmetry Washer 12.5mm - Rosado [id number] Implanted:Qty: 1 on 10/26/2016 Hardware e.g. pins/screws /rods Other/Legacy - See Implant Description Zyga Technology Description:Device Manufactu rer - Zyga Technology Inc. Body Location - Other. Right. Device Status Text - [id number]. Conversions - Default Historical Implant Device Implanted:10/26 (Quantity not on file) Misc Other Abdomen Description:Body Location - Abdominal. Device Status Text - MiscOther. mesh from hernia repair. 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 02/13/2024 10:46 AM Bladder [...] NA * Bladder Catheterization (01/13/2024 9:00 AM BARREL SCRAPER) Narrative MMODAL - 01/13/2024 9:00 AM BARREL SCRAPER Kennedi Dan APRN, C.N.P. 02/08/2024 9:14 PM [...] NA * Bladder Catheterization (12/12/2023 10:30 AM BARREL SCRAPER) Narrative MMODAL - 12/12/2023 10:30 AM BARREL SCRAPER Kennedi Dan APRN, C.N.P. 12/12/2023 9:18 PM [...] MMODAL NA from Last 3 Months Insurance [facility] MEDICARE Advance Directives For more information, please contact: [phone] Documents on File Type Date Recorded Patient Pharmaceutical Specialty Representative Expl anation Advance Directives 07/25/2016 12:00 AM Leg acy document. See document viewer. * Full Code (Latest Code Status on File) Date Activated Date Inactivated Comments 03/06/2018 2:36 PM 03/06/2018 9:26 PM Question Answer Comments Full Code: Not Discussed Due to: Patient not available Care Teams Paint Coating Machine Operator Relationship Specialty Start Date End Date Elsewhere, Pcp PCP - General Family Medicine 06/08/22
--- OUTSIDE RECORDS SUMMARY | 2024-02-28 23:16 | XMS_ITS | Continuity of Care Document ---
Author Organization [facility] Address [address] [address] [place] [address] Phone Care Team Providers Care Straw Hat Machine Operator Name Role Phone Vivian Jones MD Unavailable Unavailable Procedures Procedure Date Init Inpt Cons New/estab Mod 5 08 Advance Directives Directive Yes / No Effective Date File Name No Information Encounters Encounter Description Practice Location Reason(s) For Visit Diagnoses Date Provider Providers Copied on Encounter Init Inpt Cons New/estab Mod 5 [facility], [address] [address], [place], [place], [address], [place] tel:[phone] [facility] No Information [address] Karen Tian. [address] [facility], [facility] [address], [place], [place], [id number] , [place]. tel:[phone] Referring Provider: Mendez Benites MD , [address], [place], [address]. tel:[phone] Family History Family Member Type Diagnosis Age At Onset No Information Payers Payer name Insurance type Covered democrat ID Sujey gilbert(s) [facility] [id number] Social History Type Description Quantity Date Captured [...]
--- OUTSIDE RECORDS SUMMARY | 2024-02-28 23:16 | XMS_ITS | Encounter Summary ---
Author Organization [facility] Address [address] [place] [address] Care Team Providers Care Tile Burner Name Role Phone Elsewhere, Pcp Primary Care Provider Unavailabl e Reason for Referral * Outpatient (Routine) - Authorized Specialty Diagnoses / Procedures Referred By Contac t Referred To Contact Diagnoses Retention Urinary Procedures Bladder Catheterization Kennedi Dan APRN, C.N.P. [address] [address] Phone: tel: fax: [facility] Region Referral ID Status Reason Start Date Expiration Date V isits Requested Visits Authorized [id number] Authorized 02/13/2024 02/12/2025 1 1 UP Reason for Visit * Reason Comments Nurse Visit Removal / Exchange Catheter * Outpatient (Routine) - Authorized Specialty Diagnoses / Procedures Referred By Contac t Referred To Contact Urology Kennedi Dan APRN, C.N.P. [address] [address] Phone: tel: fax: [facility] Region Referral ID Status Reason Start Date Expiration Date V isits Requested Visits Authorized [id number] Authorized 12/12/2023 06/12/2025 12 12 Encounter Details Date Type Department Care Team (Late st Contact Info) Description 02/13/2024 10:30 AM BEND UP Nurse Only Department of Urology in [place], [place] [address] [place] [phone] Kennedi Dan APRN, C.N.P. [address] [place] [address] Kellie Kc RBonyNBony [address] [place] [address] Nurse Visit; Removal / Exchange Catheter Social History Tobacco Use Types Packs/Day Years Used Date Smoking Tobacco: Former Cigarettes 1 25 0 02/08/1956 - 02/07/1981 Passive Smoke Exposure: Past Smokeless Tobacco: Never Chew Quit: 03/03/1981 Passive Exposure Comments:No t for Years Alcohol Use Standard Drinks/Week Comments Yes 7 (1 standard drink = 0.6 oz pur e alcohol) [facility] [employer]port[employer]ing[employer] Answer Date Recorded In the past 12 months has [employer], [employer], or water [employer] threatened to shut off services in your [...] week 06/09/2022 How often do you attend [facility] or sikh services? More than 4 times per year 06/09/2022 Do you belong to any clubs o r organizations such as confucianism groups, unions, fraternal or athletic groups, or [...] [facility] - Occupational Stress Questionnaire Answer [...] Sex Assigned at Male 01/03/2018 1:26 PM BEND UP Legal Sex Male 4:09 AM BEND UP Gender Identity Not on file Sexual Orientation Straight 01/03/2018 1: 26 PM BEND UP documented as of this encounter Procedure Notes [...] completed successfully: yes Complications: no immediate complications UP documented in this encounter Plan of Treatment Upcoming Encounters Date Type Department Care Team (Late st Contact Info) Description 03/12/2024 9:30 AM BEND UP Nurse Only Department of Urology in [place], [place] [address] [place] [phone] Kennedi Dan APRN, C.N.P. [address] [place] [phone] 04/09/2024 10:30 AM BEND UP Nurse Only Department of Urology in [address] [phone] Kennedi Dan APRN, C.N.P. [address] [place] [phone] documented as of this encounter Procedures Procedure Name Priority Date/Time Associated Diagnosis Comments BLADDER CATHETERIZATION Routine 02/12/19 10:30 AM BEND UP Retention Urinary documented in this encounter Results * Bladder Catheterization (02/13/2024 10:30 AM BEND UP) Narrative MMODAL - 02/13/2024 10:30 AM BEND UP Kellie Kc R.N. 02/13/2024 10:46 AM Bladder [...] Primary documented in this encounter Care Teams Tile Burner Relationship Specialty Start Date End Date Elsewhere, Pcp PCP - General Family Medicine 06/08/22 documented as of this encounter
--- OUTSIDE RECORDS SUMMARY | 2024-02-28 23:16 | XMS_ITS | Encounter Summary ---
Author Organization [facility] Address [address] [place] [address] Care Team Providers Care Siebel Developer Name Role Phone Elsewhere, Pcp Primary Care Provider Unavailabl e Reason for Referral * Outpatient (Routine) - Closed Specialty Diagnoses / Procedures Referred By Contgisell t Referred To Contact Pulmonary Medicine Diagnoses Restrictive Lung Disease Dyspnea On Exertion Abel Gomez M.D. Phone: tel: fax: [facility] Referral ID Status Reason Start Date Expiration Date Visits Re quested Visits Authorized [id number] Closed 11/09/2017 11/09/2018 1 1 Encounter Details Date Type Department Care Team (Late st Contact Info) Description 11/09/2017 [facility] [address] [place] [address] Abel Gomez M.D. [address] [place] [phone] Restrictive Lung Disease (Primary Dx); Dyspnea On Exertion Social History Tobacco Use Types Packs/Day Years Used Date Smoking Tobacco: Former Sex and Gender Information Value Date Recorded Sex Assigned at Male 01/03/2018 1:26 PM BEND UP Legal Sex Male 4:09 AM BEND UP Gender Identity Not on file Sexual Orientation Straight 01/03/2018 1: 26 PM BEND UP documented as of this encounter Plan of Treatment Upcoming Encounters Date Type Department Care Team (Late st Contact Info) Description 03/12/2024 9:30 AM BEND UP Nurse Only Department of Urology in [place], [place] [address] [place] [address] Kennedi Dan APRN, C.N.P. [address] [place] [phone] 04/09/2024 10:30 AM BEND UP Nurse Only Department of Urology in [place], [place] [address] [place] [address] Kennedi aDn APRN, C.N.P. [address] [phone] Scheduled Referrals Name Type Priority Associated Diagnoses Orde r Schedule Pulmonary Medicine Referral Outpatient Referral Routine Restrictive Lung Disease Dyspnea On Exertion Expected: 11/09/2017 (Approximate), Expires: 11/09/2020 documented as of this encounter Visit Diagnoses Diagnosis Restrictive Lung Disease- Primary Dyspnea On Exertion documented in this encounter Care Teams Siebel Developer Relationship Specialty Start Date End Date Elsewhere, Pcp PCP - General Family Medicine 06/08/22 documented as of this encounter
--- OUTSIDE RECORDS SUMMARY | 2024-02-28 23:16 | XMS_ITS | Referral Summary ---
Author Organization [facility] Address [address] [place] [address] Care Team Providers Care Studio Director Name Role Phone Elsewhere, Pcp Primary Care Provider Unavailabl e Source Comments Patient records contain information from all sites at [facility]. For routine questions regarding patient records, call [phone] during business hours, M-F 8:00 AM - 5:00 PM Central Time. Record requests for emergency care only can be directed to [phone] at any time.[facility] Encounters Date Type Department Care Team Description 02/13/2024 10:30 AM MACHINERY REPAIR MAINTENANCE SUPERVISOR Nurse Only Department of Urology in [address] [phone] Kennedi Dan APRN, C.N.P. Kellie Kc, RBonyNBony Nurse Visit; Removal / Exchange Catheter 01/13/2024 9:00 AM MACHINERY REPAIR MAINTENANCE SUPERVISOR Office Visit Department of Urology in [place], [place] [address] [place] [phone] Kennedi Dan APRN, C.N.P. 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 More than 4 times per year [...] PHQ-2 Score 0 09/21/2018 [facility] [place] of Occupat ional [facility] - Occupational Stress Questionnaire Answer Date Recorded [...] your living situation today? I have a [facility] place to live 06/22/2023 Education Answer Date Recorded What is the highest level of school you have completed or the highest degree you have received? 12th grade 06/09/2022 Sex and Gender Information Value Date Recorded Sex Assigned at Male 01/03/2018 1:26 PM MACHINERY REPAIR MAINTENANCE SUPERVISOR Legal Sex Male 4:09 AM MACHINERY REPAIR MAINTENANCE SUPERVISOR Gender Identity Not on file Sexual Orientation Straight 01/03/2018 1: 26 PM MACHINERY REPAIR MAINTENANCE SUPERVISOR Last Filed Vital Signs Vital Sign Reading [...] st Contact Info) Description 03/12/2024 9:30 AM MACHINERY REPAIR MAINTENANCE SUPERVISOR Nurse Only Department of Urology in [address] [phone] Kennedi Dan APRN, C.N.P. [address] [address] 04/09/2024 10:30 AM MACHINERY REPAIR MAINTENANCE SUPERVISOR Nurse Only Department of Urology in [address] [place] [address] Kennedi Dan APRN, C.N.P. [address] [place] [phone] Medical Devices Implanted Type Area Construction Technology Instructor Device Identifier Shelf Expiration Date Model / Serial / Lot Infuse Bmp Xxsmall - [id number] [id number] Implanted:Qty: 1 on 10/26/2016 Bone or Tissue Other/Legacy - See Implant Description Other/Legacy - See Implant Description Description:Device Manufactu rer - Sofamor Danek. Body Location - Other. arthrodesis. Device Status Text - [id number]. Stimublast Dbm Gel 5cc - Rosado [id number] Implanted:Qty: 1 on 10/26/2016 Bone or Tissue Other/Legacy - See Implant Description Arthrex Description:Device Manufactu rer - Arthrex. Body Location - Other. arthrodesis. Device Status Text - [id number]. Stnt Synergy Art Rx3.5x16 - [id number] Implanted:Qty: 1 on 03/06/2018 by Farheen Branch M.D. at [facility] Cardiac Stent N/A: Coronary [employer] 12/07/2019 [id number] / / [id number] Description:pRCA Simmetry Screw 12.5mm X 80 - Rosado [id number] Implanted:Qty: 1 on 10/26/2016 Hardware e.g. pins/screws /rods Other/Legacy - See Implant Description Zyga Technology Description:Device Manufactu rer - [employer]. Body Location - Other. Right. Device Status Text - [id number]. Simmetry Washer 12.5mm - Rosado [id number] Implanted:Qty: 1 on 10/26/2016 Hardware e.g. pins/screws /rods Other/Legacy - See Implant Description Zyga Technology Description:Device Manufactu rer - [employer] Inc. Body Location - Other. Right. Device Status Text - [id number]. Conversions - Default Historical Implant Device Implanted:10/26 (Quantity not on file) Misc Other Abdomen Description:Body Location - Abdominal. Device Status Text - MiscOther. mesh from hernia repair. 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 02/13/2024 10:46 AM Bladder [...] NA * Bladder Catheterization (01/13/2024 9:00 AM MACHINERY REPAIR MAINTENANCE SUPERVISOR) Narrative MMODAL - 01/13/2024 9:00 AM MACHINERY REPAIR MAINTENANCE SUPERVISOR Kennedi Dan APRN C.N.PBony 02/08/2024 9:14 PM [...] NA * Bladder Catheterization (12/12/2023 10:30 AM MACHINERY REPAIR MAINTENANCE SUPERVISOR) Narrative MMODAL - 12/12/2023 10:30 AM MACHINERY REPAIR MAINTENANCE SUPERVISOR Kennedi Dan APRN, C.NBonyPBony 12/12/2023 9:18 PM [...] MMODAL NA from Last 3 Months Insurance [facility] MEDIC[facility] Advance Directives For more information, please contact: [phone] Documents on File Type Date Recorded Patient Instructional Consultant Expl anation Advance Directives 07/25/2016 12:00 AM Leg acy document. See document viewer. * Full Code (Latest Code Status on File) Date Activated Date Inactivated Comments 03/06/2018 2:36 PM 03/06/2018 9:26 PM Question Answer Comments Full Code: Not Discussed Due to: Patient not available Care Teams Studio Director Relationship Specialty Start Date End Date Elsewhere, Pcp PCP - General Family Medicine 06/08/22
== END 2024-02-28 23:49 | disposition home or self-care (01) ==
PROVIDERS: Emergency Provider Family Medicine; PCP Family Medicine
DX: S61.217A Laceration without foreign body of left little finger without damage to nail, initial encounter (principal); W26.9XXA Contact with unspecified sharp object(s), initial encounter
CPT/HCPCS: 12001; 99283; 99284

== ENCOUNTER 2024-12-31 17:36 | Emergency (ER) | payer MEDICARE, BC, SELFPAY ==
--- OUTSIDE RECORDS SUMMARY | 2007-10-27 12:39 | XMS_ITS | Continuity of Care Document ---
Author Organization [facility] Address [address] [address] [place] [address] Phone Care Team Providers Care Manager Trust Name Role Phone Unavailable Unavailable Unavailable Procedures Procedure Date Init Inpt Cons New/estab Mod 5 08 Advance Directives Directive Yes / No Effective Date File Name No Information Encounters Encounter Description Practice Location Reason(s) For Visit Diagnoses Date Provider Providers Copied on Encounter Init Inpt Cons New/estab Mod 5 [facility], [address] [address], [place], [place], [id number], tel:[phone] [facility] No Information 9200 8 No Information Referring Provider: Mendez Benites MD C, [address] [place] [address], [address]. tel:[phone] Family History Family Member Type Diagnosis Age At Onset No Information Payers Payer name Insurance type Covered republican ID Sujey gilbert(s) Blanca [id number] Social History Type Description Quantity Date Captured Comments Sex Male Smoking Status No Information Chief Complaint And Reason For Visit No Information Reason For Referral Reason For Referral No Information History Of Present Illness Encounter Date Complaint History Of Prese nt Illness No Information Functional Status Date Functional Assessmen t No Information Instructions Date Instruction Additional Infor mation No Information Assessments Type Assessment Date No Information Patient Care Teams Name Effective Dates (start - stop) Status Members No Information
--- OUTSIDE RECORDS SUMMARY | 2007-10-27 12:39 | XMS_ITS | Continuity of Care Document ---
Author Organization [facility] Address [address] [address] [place] [address] Phone Care Team Providers Care Architecture Professor Name Role Phone Unavailable Unavailable Unavailable Procedures Procedure Date Init Inpt Cons New/estab Mod 5 08 Advance Directives Directive Yes / No Effective Date File Name No Information Encounters Encounter Description Practice Location Reason(s) For Visit Diagnoses Date Provider Providers Copied on Encounter Init Inpt Cons New/estab Mod 5 [facility], [address] [address], [place], [place], [id number], tel:[phone] [facility] No Information 9200 8 No Information Referring Provider: Mendez Benites MD C, [address] [place] [address], [address]. tel:[phone] Family History Family Member Type Diagnosis Age At Onset No Information Payers Payer name Insurance type Covered alliance party ID Sujey gilbert(s) Blanca [id number] Social History Type Description Quantity Date Captured [...]
--- OUTSIDE RECORDS SUMMARY | 2021-03-26 10:18 | XMS_ITS | Continuity of Care Document ---
Author Organization [facility] Address [address] [place] [address] Phone Care Team Providers Care Soup Mixer Name Role Phone Will Dilip CASTELLANOS Unavailable Unavailabl e Allergies, Adverse Reactions, Alerts Substance Reaction Status Criticality codeine Headache Active No Information Medications Medication Instructions Dosage Effective Dates (start - stop) Status Comments acetaminophen 500 mg tablet take 1 tablet by oral route every 4 - 6 hours as needed not to exceed 8 tablets per 24hrs 500 MG - Active metoprolol succinate ER 50 mg tablet,extended release 24 hr take 1 tablet by oral route every day 50 MG - Active metoprolol succinate ER 25 mg tablet,extended release 24 hr take 1 tablet by oral route every day 25 MG - Active aspirin 81 mg chewable tablet chew 1 tablet by oral route every day 81 MG - Active triamterene 37.5 mg-hydrochlorothiazid e 25 mg capsule take 1 capsule by oral route every day 1.00 capsule - Active metoprolol tartrate 75 mg tablet take 1 tablet by oral route 2 times every day 75 MG - Active lisinopril 20 mg tablet take 1 tablet by oral route every day 20 MG - Active clopidogrel 75 mg tablet take 1 tablet by oral route every day 75 MG - Active triamterene 50 mg capsule take 1 capsule by oral route every day after a meal 50 MG - Active simvastatin 20 mg tablet take 1 tablet by oral route every day in the evening 20 MG - Active tamsulosin 0.4 mg capsule take 2 capsule by oral route every day 1/2 hour following the same meal each day 0.8 MG - Active atorvastatin 40 mg tablet take 1 tablet by oral route every day 40 MG - Active Procedures Procedure Date Drug test def 22+ classes Drug Urine Toxology With Chromatography OFFICE/OUTPATIENT VISIT, [facility] PT-FOCUSED HLTH RISK ASSMT Advance Directives Directive Yes / No Effective Date File Name No Information Encounters Encounter Description Practice Location Reason(s) For Visit Diagnoses Date Provider Providers Copied on Encounter [facility], [address] [place], [id number], [place] tel:[phone] [facility] No Information 2 Ren Cherry. [address] [place], [place], [address] , [place]. tel:[phone] OFFICE/OUTPAT IENT VISIT, [facility], [address] [place], [address], [place] tel:[phone] [facility] Back Pain (chief complaint) Chronic pain syndromeOther intervertebral disc degeneration, lumbar regionRadiculopa thy, lumbar regionOther cervical disc degeneration, unsp cervical regionRadiculopa thy, cervical regionEncounter for therapeutic drug level monitoringLong term (current) use of opiate analgesic 0 Clayton Aponte. [address] [facility] [address], [place], [place], [address] , [place]. tel:[phone] Referring Provider: Hitesh Akbar [facility] [address], [place], [address]. tel:[phone] [facility], [address] [place], [place], [address], [place] tel:[phone] [facility] No Information 0 Clayton Aponte. [address] [facility] [address], [place], [place], [address] , [place]. [phone] Family History Family Member Type Diagnosis Age At Onset No Information Payers Payer name Insurance type Covered republican ID Authoriza tipatricia(s) [facility] Medicare Replacement 16 [id number] Social History Type Description Quantity Date Captured Comments Sex Male Smoking Status No Information Chief Complaint And Reason For Visit No Information Reason For Referral Reason For Referral No Information Plan Of Treatment Date Type Action Status Future Order: Lab Order Drug Linda t Def 22+ Classes ([id number]), Ordered on: Ordered History Of Present Illness Encounter Date Complaint History Of Prese nt Illness Back Pain Severity level i s 7. Duration: chronic. It occurs persistently. Location of pain is lower back.The patient describes the pain as stabbing. Symptoms are aggravated by bending, changing positions, lifting, lying/rest, standing, twisting, walking and movement. Symptoms are relieved by sitting. Back Pain (comments) Pñea is here for an initial consult and presents with right low back pain/right SI, initial onset many years ago, flare up in November 2018 after playing golf. He has had 2 laminectomies L4, L5 since 2012. He also reports a fall in January that aggravated the pain. The pain does not radiate down the leg but is localized to a sharp stabbing pain in his right low back/SI. Standing, walking, and bending aggravate the pain.He also reports neck pain.Referred by Dr. Akbar who recommended medial cannabis and a right SI ISIS. He has completed an MRI at [facility] this February. His is present today and contributed to today's OV.Treatment Tried:ibuprofen, Tylenol - somewhat helpfulESI at [facility] - not helpfulLumbar RFA at [facility] in 2018 - he does not recall if he had the same pain or different - was over 80% pain relief for over 6 months pain reliefTENS - helps some PT March 2018Pt goal: [facility] to take over pain management, particularly interested in medical cannabis.Denies history of mental health and mental health hospitalizations. Functional Status Date Functional Assessmen t No Information Instructions Date Instruction Additional Infor mation No Information Assessments Type Assessment Date No Information Patient Care Teams Name Effective Dates (start - stop) Status Members No Information
--- OUTSIDE RECORDS SUMMARY | 2021-03-26 10:18 | XMS_ITS | Continuity of Care Document ---
Author Organization [facility] Address [address] [place] [address] Phone Care Team Providers Care Ice Bag Assembler Name Role Phone Will Dilip CASTELLANOS Unavailable Unavailabl e Allergies, Adverse Reactions, Alerts Substance Reaction Status Criticality codeine Headache Active No Information Medications Medication Instructions Dosage Effective Dates (start - stop) Status Comments triamterene 37.5 mg-hydrochlorothiazid e 25 mg capsule take 1 capsule by oral route every day 1.00 capsule - Active aspirin 81 mg chewable tablet chew 1 tablet by oral route every day 81 MG - Active metoprolol succinate ER 25 mg tablet,extended release 24 hr take 1 tablet by oral route every day 25 MG - Active metoprolol succinate ER 50 mg tablet,extended release 24 hr take 1 tablet by oral route every day 50 MG - Active acetaminophen 500 mg tablet take 1 tablet by oral route every 4 - 6 hours as needed not to exceed 8 tablets per 24hrs 500 MG - Active metoprolol tartrate 75 mg tablet [...] Drug Urine Toxology With Chromatography OFFICE/OUTPATIENT VISIT, [facility] PT-FOCUSED HLTH RISK ASSMT Advance Directives Directive Yes / No Effective Date File Name No Information Encounters Encounter Description Practice Location Reason(s) For Visit Diagnoses Date Provider Providers Copied on Encounter [facility], [address] [place], [id number], [place] tel:[phone] [facility] No Information 2 Ren Cherry. [address] [place], [place], [address] , [place]. tel:[phone] OFFICE/OUTPAT IENT VISIT, [facility], [address] [place], [address], [place] tel:[phone] [facility] Back Pain (chief complaint) Chronic pain syndromeOther intervertebral disc degeneration, lumbar regionRadiculopa thy, lumbar regionOther cervical disc degeneration, unsp cervical regionRadiculopa thy, cervical regionEncounter for therapeutic drug level monitoringLong term (current) use of opiate analgesic 0 Clayton Aponte. [address] [facility] [address], [place], [place], [address] , [place]. tel:[phone] Referring Provider: Htiesh Akbar [facility] [address], [place], [address]. tel:[phone] [facility], [address] [place], [place], [address], [place] tel:[phone] [facility] No Information 0 Clayton Aponte. [address] [facility] [address], [place], [place], [address] , [place]. [phone] Family History Family Member Type Diagnosis Age At Onset No Information Payers Payer name Insurance type Covered alliance party ID Authoriza tipatricia(s) [facility] Medicare Replacement 16 [id number] Social History Type Description Quantity Date Captured [...] are relieved by sitting. Back Pain (comments) Peña is here for an initial consult and [...] ISIS. He has completed an MRI at [facility] this February. His is present today and contributed to today's OV.Treatment Tried:ibuprofen, Tylenol - somewhat helpfulESI at [place] - not helpfulLumbar RFA at [facility] in 2018 - he does not recall [...]
--- OUTSIDE RECORDS SUMMARY | 2024-12-03 11:55 | XMS_ITS | Encounter Summary ---
Author Organization [facility] Address [address] [place] [address] Care Team Providers Care Athletic Team Physician Name Role Phone Elsewhere, Pcp Primary Care Provider Unavailabl e Encounter Details Date Type Department Care Team (Late st Contact Info) Description 12/03/2024 12:55 PM CDT Ancillary Procedure Department of Radiology in [place], [place] [address] [place] [phone] Nathalie Hwang M.D. [address] [place] [phone] Loss Weight Social History Tobacco Use Types Packs/Day Years Used Date Smoking Tobacco: Former Cigarettes 1 25 0 02/08/1956 - 02/07/1981 Passive Smoke Exposure: Past Smokeless Tobacco: Never Chew Quit: 03/03/1981 Passive Exposure Comments:No t for Years Alcohol Use Standard Drinks/Week Comments Yes 7 (1 standard drink = 0.6 oz pur e alcohol) [facility] Utilities Answer Date Recorded In the past 12 months has [facility] [employer], gas, oil, or water [employer] threatened to shut off services in your home? No 07/27/2024 Humiliation, Afraid, Rape, and Kick questionnair e [...] by your partner or ex-partner? No 06/09/2022 Hunger Vital Sign Answer Date Recorded Within the past 12 months, y ou worried that your food would run out before you got the money to buy more. Never true 07/28/19 25 Within the past 12 months, t he food you bought just didn't last and you didn't have money to get more. Never true 07/27/2024 PRAPARE - Transportation Answer Date Re corded In the past 12 months, has l ack of transportation kept you from medical appointments or from getting medications? No 07/09 In the past 12 months, has l ack of transportation kept you from meetings, work, or from getting things needed for daily living? No 07/27/2024 Housing Stability Answer Date Recorded What is your living situation today? I have a [facility] place to live 07/27/2024 Education Answer Date Recorded What is the highest level of school you have completed or the highest degree you have received? 12th grade 06/09/2022 Sex and Gender Information Value Date Recorded Sex Assigned at Male 01/03/2018 1:26 PM MASTIC MAN Legal Sex Male 4:09 AM MASTIC MAN Gender Identity Not on file Sexual Orientation Straight 01/03/2018 1: 26 PM MASTIC MAN documented as of this encounter Plan of Treatment Upcoming Encounters Date Type Department Care Team (Late st Contact Info) Description 01/08/2025 11:30 AM MASTIC MAN Nurse Only Department of Urology in [place], [place] [address] [phone] 02/08/2025 11:00 AM MASTIC MAN Appointment Department of Radiology in [place], [place] [address] [phone] Kennedi Dan APRN, C.N.P. [address] [phone] 02/08/2025 12:00 PM MASTIC MAN Appointment Department of Radiology in [place], [place] [address] [phone] Kennedi Dan APRN, C.N.P. [address] [phone] 02/12/2025 11:00 AM MASTIC MAN Office Visit Department of Urology in [place], [place] [address] [facility] [place] [phone] Kennedi Dan APRN, C.N.P. [address] [facility] [phone] documented as of this encounter Procedures Procedure Name Priority Date/Time Associated Diagnosis Comments INTERPRETATION OF OUTSIDE CT CHEST RAD - Routine (most inpatients and all outpatients) 12/03/2024 12:55 PM CDT Loss Weight documented in this encounter Results * Interpretation of Outside CT Chest (12/03/2024 12:55 PM CDT) Anatomical Region Laterality Modality Chest, Thoracic RST LOS, Tho racic ARZ LOS, Thoracic FLA LOS, Other, Body N/A Computed Tomography Impressions 12/04/2024 10:40 AM CDT 1. 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 2. New probable infectious/inflammatory infiltrates in the right upper lobe. These are however technically indeterminant and short term surveillance would likely be beneficial to ensure stability or resolution. Narrative 12/04/2024 10:40 AM CDT EXAM: INTERPRETATION OF OUTSIDE CT CHEST with IV contrast dated 11/02/2024 COMPARISON: 12/27/2017 FINDINGS: Again evident are reticular fibrotic opacities in the mid and lower lungs with some associated traction bronchiectasis and architectural distortion. These are stable to minimally progressed since 12/27/2017. No honeycombing evident. There are new patchy groundglass opacity infiltrates in the right upper lobe. These are likely infectious/inflammatory in nature or due to aspiration but indeterminant and short interval follow-up could be considered to ensure stability or resolution. No infiltrates in the left lung. Postoperative changes with scarring in the right apex is stable. Stable pleural thickening and calcification inferior right hemithorax. No definite worrisome pulmonary nodules. Calcified pulmonary granulomas. Calcified right hilar lymph nodes indicative of old granulomatous infection. No adenopathy in the chest. Patulous esophagus. Circumferential thickening of the wall of the lower esophagus may be due to reflux esophagitis. Aortic and coronary artery calcification. Degenerative and hypertrophic changes in the spine. No definite worrisome osseous lesions in the chest. Cholecystectomy. Procedure Note Luis Cedeño M.D. - 12/04/2024 EXAM: INTERPRETATION OF OUTSIDE CT CHEST with IV contrast dated11/02/2024 COMPARISON: 12/27/2017 FINDINGS: Again evident are reticular fibrotic opacities in the mid and lower lungswith some associated traction bronchiectasis and architectural distortion.These are stable to minimally progressed since 12/27/2017. No honeycombingevident. There are new patchy groundglass opacity infiltrates in the right upperlobe. These are likely infectious/inflammatory in nature or due toaspiration but indeterminant and short interval follow-up could beconsidered to ensure stability or resolution. No infiltrates in the leftlung. Postoperative changes with scarring in the right apex is stable. Stablepleural thickening and calcification inferior right hemithorax. No definite worrisome pulmonary nodules. Calcified pulmonary granulomas. Calcified right hilar lymph nodes indicative of old granulomatousinfection. No adenopathy in the chest. Patulous esophagus. Circumferentialthickening of the wall of the lower esophagus may be due to refluxesophagitis. Aortic and coronary artery calcification. Degenerative and hypertrophic changes in the spine. No definite worrisomeosseous lesions in the chest. Cholecystectomy. IMPRESSION: 1. Mild fibrotic interstitial lung disease has not changed appreciablysince 12/27/2017. 2. New probable infectious/inflammatory infiltrates in the right upperlobe. These are however technically indeterminant and short termsurveillance would likely be beneficial to ensure stability orresolution. Nathalie GEORGEG CT PROCEDURES Final Re sult documented in this encounter Visit Diagnoses Diagnosis Loss Weight documented in this encounter Care Teams Athletic Team Physician Relationship Specialty Start Date End Date Elsewhere, Pcp PCP - General Family Medicine 06/08/22 documented as of this encounter
--- OUTSIDE RECORDS SUMMARY | 2024-12-03 11:55 | XMS_ITS | Encounter Summary ---
Author Organization [facility] Address [address] [place] [address] Care Team Providers Care Director Of Channel Marketing Name Role Phone Elsewhere, Pcp Primary Care Provider Unavailabl e Encounter Details Date Type Department Care Team (Late st Contact Info) Description 12/03/2024 12:55 PM CDT Ancillary Procedure Department of Radiology in [place], [place] [address] [place] [phone] Nathalie Hwang M.D. [address] [place] [phone] Loss Weight Social History Tobacco Use Types Packs/Day Years Used Date Smoking Tobacco: Former Cigarettes 1 25 0 02/08/1956 - 02/07/1981 Passive Smoke Exposure: Past Smokeless Tobacco: Never Chew Quit: 03/03/1981 Passive Exposure Comments:No t for Years Alcohol Use Standard Drinks/Week Comments Yes 7 (1 standard drink = 0.6 oz pur e alcohol) [facility] Utilities Answer Date Recorded In the past 12 months has [facility], gas, oil, or water [employer] threatened to shut off services in your [...] your living situation today? I have a [facility] place to live 07/27/2024 Education Answer Date Recorded What is the highest level of school you have completed or the highest degree you have received? 12th grade 06/09/2022 Sex and Gender Information Value Date Recorded Sex Assigned at Male 01/03/2018 1:26 PM INDUSTRIAL SEAMSTRESS Legal Sex Male 4:09 AM INDUSTRIAL SEAMSTRESS Gender Identity Not on file Sexual Orientation Straight 01/03/2018 1: 26 PM INDUSTRIAL SEAMSTRESS documented as of this encounter Plan of Treatment Upcoming Encounters Date Type Department Care Team (Late st Contact Info) Description 01/08/2025 11:30 AM INDUSTRIAL SEAMSTRESS Nurse Only Department of Urology in [place], [place] [address] [phone] 02/08/2025 11:00 AM INDUSTRIAL SEAMSTRESS Appointment Department of Radiology in [place], [place] [address] [phone] Kennedi Dan APRN, C.N.P. [address] [phone] 02/08/2025 12:00 PM INDUSTRIAL SEAMSTRESS Appointment Department of Radiology in [place], [place] [address] [phone] Kennedi Dan APRN, C.N.P. [address] [phone] 02/12/2025 11:00 AM INDUSTRIAL SEAMSTRESS Office Visit Department of Urology in [place], [place] [address] [facility] [place] [phone] Kennedi Dan APRN, C.N.P. [address] [facility] [phone] documented as of this encounter Procedures Procedure [...] Weight documented in this encounter Care Teams Director Of Channel Marketing Relationship Specialty Start Date End Date Elsewhere, Pcp PCP - General Family Medicine 06/08/22 documented as of this encounter
--- OUTSIDE RECORDS SUMMARY | 2024-12-03 12:00 | XMS_ITS | Encounter Summary ---
Author Organization [facility] Address [address] [place] [address] Care Team Providers Care Wine Specialist Name Role Phone Elsewhere, Pcp Primary Care Provider Unavailabl e Encounter Details Date Type Department Care Team (Late st Contact Info) Description 12/03/2024 1:00 PM CDT Ancillary Procedure Department of Radiology in [place], [place] [address] [place] [phone] Nathalie Hwang M.D. [address] [place] [phone] Loss Weight Social History Tobacco Use Types Packs/Day Years Used Date Smoking Tobacco: Former Cigarettes 1 25 0 02/08/1956 - 02/07/1981 Passive Smoke Exposure: Past Smokeless Tobacco: Never Chew Quit: 03/03/1981 Passive Exposure Comments:No t for Years Alcohol Use Standard Drinks/Week Comments Yes 7 (1 standard drink = 0.6 oz pur e alcohol) [facility] Utilities Answer Date Recorded In the past 12 months has [facility], gas, oil, or water [employer] threatened to shut off services in your [...] your living situation today? I have a [facility] place to live 07/27/2024 Education Answer Date Recorded What is the highest level of school you have completed or the highest degree you have received? 12th grade 06/09/2022 Sex and Gender Information Value Date Recorded Sex Assigned at Male 01/03/2018 1:26 PM YEAST CULTURE DEVELOPER Legal Sex Male 4:09 AM YEAST CULTURE DEVELOPER Gender Identity Not on file Sexual Orientation Straight 01/03/2018 1: 26 PM YEAST CULTURE DEVELOPER documented as of this encounter Plan of Treatment Upcoming Encounters Date Type Department Care Team (Late st Contact Info) Description 01/08/2025 11:30 AM YEAST CULTURE DEVELOPER Nurse Only Department of Urology in [place], [place] [address] [phone] 02/08/2025 11:00 AM YEAST CULTURE DEVELOPER Appointment Department of Radiology in [place], [place] [address] [phone] Kennedi Dan APRN, C.N.P. [address] [phone] 02/08/2025 12:00 PM YEAST CULTURE DEVELOPER Appointment Department of Radiology in [place], [place] [address] [phone] Kennedi Dan APRN, C.N.P. [address] [facility] [place] [phone] 02/12/2025 11:00 AM YEAST CULTURE DEVELOPER Office Visit Department of Urology in [place], [place] [address] [facility] [place] [phone] Kennedi Dan APRN, C.N.P. [address] [facility] [place] [phone] documented as of this encounter Procedures Procedure Name Priority Date/Time Associated Diagnosis Comments INTERPRETATION OF OUTSIDE CT ABDOMEN AND OR PELVIS RAD - Routine (most inpatients and all outpatients) 12/03/2024 12:55 PM CDT Loss Weight documented in this encounter Results * Interpretation of Outside CT Abdomen and or Pelvis (12/03/2024 12:55 PM CDT) Anatomical Region Laterality Modality Abdomen, Pelvis, Abdominal R ST LOS, Abdominal ARZ LOS, Abdominal FLA LOS, Other N/A Computed Tomography Impressions 12/05/2024 7:51 AM CDT 1. Interval placement of a suprapubic bladder catheter. 2. Radiation seeds in the prostate gland. No evidence for metastatic disease in the abdomen or pelvis. Narrative 12/05/2024 7:51 AM CDT EXAM: INTERPRETATION OF OUTSIDE CT ABDOMEN AND OR PELVIS IV contrast 11/02/2024. COMPARISON: [place] CT urogram 09/09/2022. FINDINGS: Radiation seeds in the prostate gland. Interval placement of a suprapubic catheter into the diffusely thick-walled decompressed bladder. No lymphadenopathy in the abdomen or pelvis. Extensive colonic diverticulosis without evidence for diverticulitis. The remainder of the bowel appears normal. 2 stable very tiny nonobstructing left renal calculi. Tiny bilateral renal cysts. Cholecystectomy. Mild diffuse pancreatic atrophy. Mild diffuse wall thickening of the visualized distal esophagus, which may be inflammatory in nature. Aortoiliac calcifications. Small bilateral fat-containing inguinal hernias. Surgical screw across the right sacroiliac joint. Degenerative changes in the spine. No worrisome bony lesions. This examination was performed in conjunction with a CT of the chest, which will be reported separately. Procedure Note Noel Shin M.D. - 12/05/2024 EXAM: INTERPRETATION OF OUTSIDE CT ABDOMEN AND OR PELVIS IV [id number]/26/2025. COMPARISON: [place] CT urogram 09/09/2022. FINDINGS: Radiation seeds in the prostate gland. Interval placement of a suprapubiccatheter into the diffusely thick-walled decompressed bladder. Nolymphadenopathy in the abdomen or pelvis. Extensive colonic diverticulosiswithout evidence for diverticulitis. The remainder of the bowel appearsnormal. 2 stable very tiny nonobstructing left renal calculi. Tinybilateral renal cysts. Cholecystectomy. Mild diffuse pancreatic atrophy.Mild diffuse wall thickening of the visualized distal esophagus, which maybe inflammatory in nature. Aortoiliac calcifications. Small bilateralfat-containing inguinal hernias. Surgical screw across the right sacroiliac joint. Degenerative changes inthe spine. No worrisome bony lesions. This examination was performed in conjunction with a CT of the chest,which will be reported separately. IMPRESSION: 1. Interval placement of a suprapubic bladder catheter. 2. Radiation seeds in the prostate gland. No evidence for metastaticdisease in the abdomen or pelvis. Nathalie Hwang M.D. IMG CT PROCEDURES Final Re sult documented in this encounter Visit Diagnoses Diagnosis Loss Weight documented in this encounter Care Teams Wine Specialist Relationship Specialty Start Date End Date Elsewhere, Pcp PCP - General Family Medicine 06/08/22 documented as of this encounter
--- OUTSIDE RECORDS SUMMARY | 2024-12-03 12:00 | XMS_ITS | Encounter Summary ---
Author Organization [facility] Address [address] [place] [address] Care Team Providers Care Value Analyst Name Role Phone Elsewhere, Pcp Primary Care Provider Unavailabl e Encounter Details Date Type Department Care Team (Late st Contact Info) Description 12/03/2024 1:00 PM CDT Ancillary Procedure Department of Radiology in [place], [place] [address] [place] [phone] Nathalie Hwang M.D. [address] [place] [phone] Loss Weight Social History Tobacco Use Types [...] Recorded In the past 12 months has [facility] [employer], gas, oil, or water [employer] threatened to shut off services in your [...] your living situation today? I have a [facility] place to live 07/27/2024 Education Answer Date Recorded What is the highest level of school you have completed or the highest degree you have received? 12th grade 06/09/2022 Sex and Gender Information Value Date Recorded Sex Assigned at Male 01/03/2018 1:26 PM SEWER Legal Sex Male 4:09 AM SEWER Gender Identity Not on file Sexual Orientation Straight 01/03/2018 1: 26 PM SEWER documented as of this encounter Plan of Treatment Upcoming Encounters Date Type Department Care Team (Late st Contact Info) Description 01/08/2025 11:30 AM SEWER Nurse Only Department of Urology in [place], [place] [address] [phone] 02/08/2025 11:00 AM SEWER Appointment Department of Radiology in [place], [place] [address] [phone] Kennedi Dan APRN, C.N.P. [address] [phone] 02/08/2025 12:00 PM SEWER Appointment Department of Radiology in [place], [place] [address] [phone] Kennedi Dan APRN, C.N.P. [address] [facility] [phone] 02/12/2025 11:00 AM SEWER Office Visit Department of Urology in [place], [place] [address] [facility] [place] [phone] Kennedi Dan APRN, C.N.P. [address] [facility] [place] [address] documented as of this encounter [...] AND OR PELVIS IV contrast 11/02/2024. COMPARISON: [place] [facility] urogram 09/09/2022. FINDINGS: Radiation seeds in [...] OUTSIDE CT ABDOMEN AND OR PELVIS IV [id number]/26/2025. COMPARISON: [place] [facility] urogram 09/09/2022. FINDINGS: Radiation seeds in [...] Weight documented in this encounter Care Teams Value Analyst Relationship Specialty Start Date End Date Elsewhere, Pcp PCP - General Family Medicine 06/08/22 documented as of this encounter
--- OUTSIDE RECORDS SUMMARY | 2024-12-04 06:26 | XMS_ITS | Encounter Summary ---
Author Organization [facility] Address [address] [place] [address] Care Team Providers Care Pain Management Nurse Name Role Phone Elsewhere, Pcp Primary Care Provider Unavailabl e Reason for Referral * MRI/CAT/PET Scan (Routine) - Closed Specialty Diagnoses / Procedures Referred By Contac t Referred To Contact Diagnoses Loss Weight Procedures PET CT Skull to Thigh FDG Nathalie Hwang M.D. 200 [place] [address] Phone: tel: fax: [facility] Region Referral ID Status Reason Start Date Expiration Date Visits Re quested Visits Authorized [id number] Closed 12/04/2024 03/06/2026 1 1 Reason for Visit * Appointment Request (Routine) - Closed Specialty Diagnoses / Procedures Referred By Contgisell t Referred To Contact Pulmonary Medicine Diagnoses Thickening Pleural Lee Broderick II, M.D. [address] [place] [phone] Phone: tel: fax: Referral ID Status Reason Start Date Expiration Date Visits Re quested Visits Authorized [id number] Closed 11/26/2024 02/26/2026 1 1 Encounter Details Date Type Department Care Team (Latest Contact Info) Description 12/04/2024 7:26 AM CDT - 12/04/2024 11:59 PM CDT Hospital Encounter Division of Pulmonary Medicine in [place], [place] [address] [place] [phone] Nath[place] [phone] Loss Weight (Primary Dx); Restrictive Lung Disease; Other Pneumothorax Discharge Disposition: Home or Self Care Social [...] oz pur e alcohol) [facility] Utilities Answer Date Recorded In the past 12 months has e [employer], gas, oil, or water [employer] threatened to shut off services in your [...] money to buy more. Never true 07/28/19 Within the past 12 months, t he [...] your living situation today? I have a [facility] place to live 07/27/2024 Education Answer Date Recorded What is the highest level of school you have completed or the highest degree you have received? 12th grade 06/09/2022 Sex and Gender Information Value Date Recorded Sex Assigned at Male 01/03/2018 1:26 PM ADVERTISING CONSULTANT Legal Sex Male 4:09 AM ADVERTISING CONSULTANT Gender Identity Not on file Sexual Orientation Straight 01/03/2018 1: 26 PM ADVERTISING CONSULTANT documented as of this encounter Last Filed Vital Signs Vital Sign Reading Time Taken Comments Blood Pressure 129/77 12/04/2024 7:41 AM CDT Pulse 79 12/04/2024 7:41 AM CDT Temperature 36.5 C (97.7 F) 12/04/2024 7:41 AM CDT Respiratory Rate - - Oxygen Saturation 95% 12/04/2024 7:41 AM CDT Inhaled Oxygen Concentration - - Weight 83.6 kg (184 lb 4.9 oz) 12/04/2024 7:41 A M CDT Height 176.2 cm (5' 9.37) 12/04/2024 7:41 AM CD T Body Mass Index 26.93 12/04/2024 7:41 AM CDT documented in this encounter Medications at Time of Discharge atorvastatin (LIPITOR) 40 mg tablet Take 1 tablet by mouth at bedtime. 08/27/2022 losartan (Cozaar) 25 mg tablet Take 25 mg by mouth daily. TAKE 1 TABLET(50 MG) BY MOUTH EVERY DAY 03/15/2022 magnesium oxide (Mag-Ox) 400 mg (241.3 mg magnesium) tablet Take 1 tablet by mouth daily. 12/08/2023 metoprolol succinate (TOPROL-XL) 25 mg 24 hr tablet Take 1 tablet (25 mg total) by mouth daily. Do not crush or chew. PLUS a 50mg tablet daily 90 tablet 3 05/29/2019 nitroglycerin (NITROSTAT) 0.[address] 0.4 mg under the tongue every 5 (five) minutes as needed for chest pain. 07/23/2019 triamterene-hydr oCHLOROthiazide (DYAZIDE) 37.5-25 mg per capsule TK 1 C PO D 01/21/2019 vit A/vit C/vit E/zinc/copper (PRESERVISION AREDS ORAL) Take 1 capsule by mouth 2 (two) times a day. warfarin (COUMADIN) 2 mg tablet TAKE 2 TABLETS BY MOUTH EVERY DAY IN THE EVENING OR DIRECTED You may resume 24-48 hours after your urologic surgery if no significant blood in the urine. 09/24/2022 acetaminophen (TYLENOL) 500 mg tablet Take 2 tablets by mouth every 8 (eight) hours as needed. pain. Max tylenol dose 3000mg in 24 hours 10/28/2016 5 calcium citrate-vitamin D3 (CITRACAL + D MAXIMUM) 315-250 mg-unit per tablet Take 1 tablet by mouth daily. bone health 10/26/2016 5 methocarbamoL (Robaxin) 500 mg tablet Take 500 mg by mouth daily. 1/2 tablet daily 5 tamsulosin (FLOMAX) 0.4 mg 24 hr capsule Take 2 capsules by mouth daily. BPH 10/26/2016 5 documented as of this encounter Consult Notes * Nathalie Hwang M.D. - 12/04/2024 8:00 AM CDT SUBJECTIVE CHIEF COMPLAINT/REASON FOR VISIT Pleural thickening, weight loss REFERRAL SOURCE Lee Broderick II, M.D. [address] [place] [phone] HISTORY OF PRESENT ILLNESS Mr. Reddy is an 89 year old man who presents to [facility] accompanied by his son Alejandro for evaluation of chronic bilateral pleural thickening. He has recently been undergoing primary care evaluation for unintentional weight loss. 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 He has unintentionally lost 30 pounds over the past year. This is in the setting of caring for his , who is struggling with memory issues. While this has been challenging at times, he denies depressed mood. He wonders whether his weight loss is partially related to not being accustomed to cooking meals himself and is going to explore the possibility of Meals on Wheels with his son. He deniesany changes to his bowel habits and specifically denies bloody stool or melena. He reports chronic dyspnea on exertion and has previously been evaluated by my colleagues Drs. Mendosa and Jigna/Lo in 2011 and 2018, respectively. His dyspnea on exertion has gradually worsened though he describes his situation as doable. He can ambulate around his home without developing dyspnea though notes that he sometimes veers. He denies any recent falls. His recent evaluation for weight loss included a CT chest/abdomen/pelvis on 11/02/24. This raised concern for progressive pulmonary fibrosis and bilateral calcified pleural plaques. He and his have 5 sons and 1 daughter. 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 Hobbies since fci include woodwork and golf. While not confirmed, it's possible that he was exposed to plaster material that contained asbestos. The following portions of the patient's history were reviewed and updated as appropriate: Allergies, Current Medications, Medical History, Surgical History, Social History, and Family History. REVIEW OF SYSTEMS All systems reviewed and negative except as noted in the HPI. OBJECTIVE PHYSICAL EXAMINATION VITALS: BP 129/77 Pulse 79 Temp 36.5 ??C (Temporal) Ht 176.2 cm Wt 83.6 kg SpO2 95% BMI26.93 kg/m?? General: Very pleasant elderly man who is conversant throughout the visit and is in no acute distress Eyes: No scleral icterus Cardiovascular: Normal rate, regular rhythm, no murmurs appreciated, no lower extremity edema Lungs: Bibasilar crackles Neuro: Alert, answers questions appropriately, hard of hearing DIAGNOSTICS His CT chest from 11/02/24 has been interpreted by [facility]. There is no concern for metastatic disease burden related to his prior prostate cancer. There is mild fibrotic interstitial lung disease that appears stable compared to late 2018. There is bilateral pleural thickening, more pronounced and associated with calcification on the right side. The degree of thickening appears stable compared to late 2018 though the right-sided pleural calcification is more pronounced. ASSESSMENT / PLAN # Unintentional weight loss # History of recurrent pneumothoraces s/p left thoracotomy with pleurodesis in 1986 and right VATS pleurodesis in 2004 # Mild fibrotic interstitial lung disease, no appreciable change since 2018 # Chronic dyspnea on exertion # Prior nicotine dependence # Coronary artery disease # Atrial fibrillation, on chronic warfarin therapy # History of prostate cancer Mr. Reddy's pleural findings are chronic related to prior bilateral surgical intervention and potentially from asbestos exposure. There has been no appreciable change in the degree of pleural thickening over the past 7 years and the more pronounced calcification may simply reflect the chronicity of the issue. We will pursue a PET CT to assess for any areas of pleural avidity versus alternative FDG-avid areas that could tie in with his year long history of unintentional weight loss. He would like to have the PET CT performed in [place] though would be willing to return to [place] if unableto schedule locally. Addendum: I reviewed the PET CT findings with Mr. Reddy by phone. There are no FDG-avid thoracic lesions. There is a moderately avid area in the sigmoid colon that could represent a malignant or inflammatory process along with a mildly avid right intraparotid nodule that was favored to be benign though technically indeterminate. A colonoscopy would be a reasonable next step to assess his weight loss and the inspect/biopsy the area of avidity. He brought up whether this should be investigated in light ofhis advanced age. He has thankfully tolerated prior colonoscopies without difficulty though it would be prudent to discuss whether to proceed with invasive testing with his primary care provider, whohas a more longitudinal relationship with him. If he decides to proceed with colonoscopy, he would wish to have this performed locally and would need counseling with regard to terri-procedural anticoagulation. RTISING CONSULTANT documented in this encounter Plan of Treatment Upcoming Encounters Date Type Department Care Team (Late st Contact Info) Description 01/08/2025 11:30 AM ADVERTISING CONSULTANT Nurse Only Department of Urology in [place], [place] [address] [phone] 02/08/2025 11:00 AM ADVERTISING CONSULTANT Appointment Department of Radiology in [place], [place] [address] [phone] Kennedi Dan APRN, C.N.P. [address] [phone] 02/08/2025 12:00 PM ADVERTISING CONSULTANT Appointment Department of Radiology in [place], [place] [address] [phone] Kennedi Dan APRN, C.N.PBony [address] [phone] 02/12/2025 11:00 AM ADVERTISING CONSULTANT Office Visit Department of Urology in [place], [place] [address] [phone] Kennedi Dan APRN, C.N.P. [address] [phone] documented as of this encounter Results * PET CT Skull to Thigh FDG (12/06/2024 2:35 PM CDT) Anatomical Region Laterality Modality Body, Nuclear Medicine PET R ST LOS, PET ARZ LOS, Nuclear Medicine PET FLA LOS, Nuclear Medicine N/A Positron Emission Tomography (PET) Impressions 12/06/2024 3:32 PM CDT 1. Moderately FDG avid focus in the redundant sigmoid colon, indeterminant for neoplastic versus inflammatory process. Recommend further evaluation with colonoscopy to exclude colonic neoplasm. 2. Mildly FDG avid right intraparotid nodule, indeterminant but likely benign, including Warthin's tumor or pleomorphic adenoma. Can consider further evaluation with ultrasound if not previously evaluated. Narrative 12/06/2024 3:32 PM CDT EXAM: PET CT SKULL TO THIGH FDG COMPARISON: CT 11/02/2024 INDICATION: Unexplained weight loss with history of prostate cancer. Initial treatment strategy. F-[address] scan was performed from the mid calvarium through the upper thighs with CT fusion imaging for attenuation correction, anatomic coregistration, and respiratory gating only. Serum glucose at time of F-18 FDG injection: 97 mg/dL. Uptake time: 60 minutes following injection. The patient reports no recent vaccinations. Background: Liver SUV max = 2.9, Aorta Blood SUV max = 2.5 FINDINGS: Head/Neck: Mild focal uptake associated with 0.6 cm right intraparotid nodule with SUV max 4.3 (3/29). Chest: No suspicious hypermetabolic foci. Abdomen/Pelvis: Moderate focal uptake associated with redundant sigmoid colon with SUV max 8.5 (3/200). Skeleton: No suspicious hypermetabolic foci. Other Findings: Arterial calcifications including coronary arteries. Calcified right hilar lymph nodes. Trace right pleural effusion with calcified right pleural plaques and pleural thickening. Cholecystectomy. Nonobstructive renal calculi. Colonic diverticulosis. Prostate brachytherapy seeds. Decompressed urinary bladder with suprapubic catheter. Right sacroiliac screw fixation. Spondylosis. Small fat-containing inguinal hernias. RADIOPHARMACEUTICAL/MEDS: Route: intravenous fludeoxyglucose F 18 injection HALF-WAY (F-18 FDG),14.4 millicurie Procedure Note Roselyn Fabian M.D. - 12/06/2024 EXAM: PET CT SKULL TO THIGH FDG COMPARISON: CT 11/02/2024 INDICATION: Unexplained weight loss with history of prostate cancer.Initial treatment strategy. F-[address] scan was performed from the mid calvarium through theupper thighs with CT fusion imaging for attenuation correction, anatomiccoregistration, and respiratory gating only. Serum glucose at time of F-18 FDG injection: 97 mg/dL. Uptake time: 60 minutes following injection. The patient reports no recent vaccinations. Background: Liver SUV max = 2.9, Aorta Blood SUV max = 2.5 FINDINGS: Head/Neck: Mild focal uptake associated with 0.6 cm right intraparotidnodule with SUV max 4.3 (3/29). Chest: No suspicious hypermetabolic foci. Abdomen/Pelvis: Moderate focal uptake associated with redundant sigmoidcolon with SUV max 8.5 (3/200). Skeleton: No suspicious hypermetabolic foci. Other Findings: Arterial calcifications including coronary arteries.Calcified right hilar lymph nodes. Trace right pleural effusion withcalcified right pleural plaques and pleural thickening. Cholecystectomy.Nonobstructive renal calculi. Colonic diverticulosis. Prostatebrachytherapy seeds. Decompressed urinary bladder with suprapubiccatheter. Right sacroiliac screw fixation. Spondylosis. Smallfat- containing inguinal hernias. RADIOPHARMACEUTICAL/MEDS: Route: intravenous fludeoxyglucose F 18 injection HALF-WAY (F-18 FDG),14.4 millicurie IMPRESSION: 1. Moderately FDG avid focus in the redundant sigmoid colon,indeterminant for neoplastic versus inflammatory process. Recommendfurther evaluation with colonoscopy to exclude colonic neoplasm. 2. Mildly FDG avid right intraparotid nodule, indeterminant but likelybenign, including Warthin's tumor or pleomorphic adenoma. Can considerfurther evaluation with ultrasound if not previously evaluated. Nathalie MARTIN NM PROCEDURES Final Re sult documented in this encounter Visit Diagnoses Diagnosis Loss Weight- Primary Restrictive Lung Disease Other Pneumothorax Loss Weight documented in this encounter Care Teams Pain Management Nurse Relationship Specialty Start Date End Date Elsewhere, Pcp PCP - General Family Medicine 06/08/22 documented as of this encounter
--- OUTSIDE RECORDS SUMMARY | 2024-12-04 06:26 | XMS_ITS | Encounter Summary ---
Author Organization [facility] Address [address] [place] [address] Care Team Providers Care Chief Pharmacist Name Role Phone Elsewhere, Pcp Primary Care Provider Unavailabl e Reason for Referral * MRI/CAT/PET Scan (Routine) - Closed Specialty Diagnoses / Procedures Referred By Contac t Referred To Contact Diagnoses Loss Weight Procedures PET CT Skull to Thigh FDG Nathalie Hwang M.D. 200 [place] [address] Phone: tel: fax: [facility] Region Referral ID Status Reason Start Date Expiration Date Visits Re quested Visits Authorized [id number] Closed 12/04/2024 03/06/2026 1 1 Reason for Visit * Appointment Request (Routine) - Closed Specialty Diagnoses / Procedures Referred By Contgisell t Referred To Contact Pulmonary Medicine Diagnoses Thickening Pleural Lee Broderick II, M.D. [address] [place] [phone] Phone: tel: fax: Referral ID Status Reason Start Date Expiration Date Visits Re quested Visits Authorized [id number] Closed 11/26/2024 02/26/2026 1 1 Encounter Details Date Type Department Care Team (Latest Contact Info) Description 12/04/2024 7:26 AM CDT - 12/04/2024 11:59 PM CDT Hospital Encounter Division of Pulmonary Medicine in [place], [place] [address] [place] [phone] Nath[place] [address] Loss Weight (Primary Dx); Restrictive Lung Disease; [...] drink = 0.6 oz pur e alcohol) [facility] Utilities Answer Date Recorded In the past 12 months has e [employer], gas, oil, or water [employer] threatened to shut off services in your [...] living situation today? I have a [facility] place to live 07/27/2024 Education Answer Date Recorded What is the highest level of school you have completed or the highest degree you have received? 12th grade 06/09/2022 Sex and Gender Information Value Date Recorded Sex Assigned at Male 01/03/2018 1:26 PM MEDICAL SURGERY NURSE Legal Sex Male 4:09 AM MEDICAL SURGERY NURSE Gender Identity Not on file Sexual Orientation Straight 01/03/2018 1: 26 PM MEDICAL SURGERY NURSE documented as of this encounter Last Filed [...] loss REFERRAL SOURCE Lee Broderick II, M.D. [address] [place] [phone] HISTORY OF PRESENT ILLNESS Mr. Reddy is an 89 year old man who presents to [facility] Clinic accompanied by his son Alejandro for evaluation of chronic bilateral pleural thickening. He has recently been undergoing primary care evaluation for unintentional weight loss. 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 Hobbies since us[employer] include woodwork and golf. While not confirmed, [...] chest from 11/02/24 has been interpreted by [facility]. There is no concern for metastatic [...] to have the PET CT performed in [place] though would be willing to return to [place] if unableto schedule locally. Addendum: I reviewed [...] need counseling with regard to terri-procedural anticoagulation. CAL SURGERY NURSE documented in this encounter Plan of Treatment Upcoming Encounters Date Type Department Care Team (Late st Contact Info) Description 01/08/2025 11:30 AM MEDICAL SURGERY NURSE Nurse Only Department of Urology in [place], [place] [address] [phone] 02/08/2025 11:00 AM MEDICAL SURGERY NURSE Appointment Department of Radiology in [place], [place] [address] [phone] Kennedi Dan APRN, C.N.P. [address] [phone] 02/08/2025 12:00 PM MEDICAL SURGERY NURSE Appointment Department of Radiology in [place], [place] [address] [phone] Kennedi Dan APRN, C.N.PBony [address] [phone] 02/12/2025 11:00 AM MEDICAL SURGERY NURSE Office Visit Department of Urology in [place], [place] [address] [phone] Kennedi Dan APRN, C.N.P. [address] [phone] documented as of this encounter [...] RADIOPHARMACEUTICAL/MEDS: Route: intravenous fludeoxyglucose F 18 injection LONG-TERM (F-18 FDG),14.4 millicurie Procedure Note Roselyn Fabian [...] RADIOPHARMACEUTICAL/MEDS: Route: intravenous fludeoxyglucose F 18 injection LONG-TERM (F-18 FDG),14.4 millicurie IMPRESSION: 1. Moderately FDG [...] Weight documented in this encounter Care Teams Chief Pharmacist Relationship Specialty Start Date End Date Elsewhere, Pcp PCP - General Family Medicine 06/08/22 documented as of this encounter
--- OUTSIDE RECORDS SUMMARY | 2024-12-06 11:35 | XMS_ITS | Encounter Summary ---
Author Organization [facility] Address [address] [place] [address] Care Team Providers Care Stroke Belt Sander Operator Name Role Phone Elsewhere, Pcp Primary Care Provider Unavailabl e Reason for Referral * MRI/CAT/PET Scan (Routine) - Closed Specialty Diagnoses / Procedures Referred By Contac t Referred To Contact Diagnoses Loss Weight Procedures PET CT Skull to Thigh FDG Nathalie Hwang M.D. [address] [place] [address] Phone: tel: fax: [facility] Region Referral ID Status Reason Start Date Expiration Date Visits Re quested Visits Authorized [id number] Closed 12/04/2024 03/06/2026 1 1 Reason for Visit * MRI/CAT/PET Scan (Routine) - Closed Specialty Diagnoses / Procedures Referred By Alexander ridley Referred To Contact Diagnoses Loss Weight Procedures PET CT Skull to Thigh FDG Nathalie Hwang M.D. [address] [place] [address] Phone: tel: fax: [facility] Region Referral ID Status Reason Start Date Expiration Date Visits Re quested Visits Authorized [id number] Closed 12/04/2024 03/06/2026 1 1 Encounter Details Date Type Department Care Team (Latest Contact Info) Description 12/06/2024 12:35 PM CDT - 12/06/2024 11:59 PM CDT Hospital Encounter Department of Radiology in [place], [place] [address], [place] [address] Nathalie Hwang M.D. [address] [place] [address] Loss Weight Discharge Disposition: Home or Self Care Social [...] In the past 12 months has e [employer], gas, oil, or water [employer] threatened to shut off services in your [...] your living situation today? [facility] 07/27/2024 Education Answer Date Recorded What is the highest level of school you have completed or the highest degree you have received? 12th grade 06/09/2022 Sex and Gender Information Value Date Recorded Sex Assigned at Male 01/03/2018 1:26 PM FINANCIAL REPORT SERVICE SALES AGENT Legal Sex Male 4:09 AM FINANCIAL REPORT SERVICE SALES AGENT Gender Identity Not on file Sexual Orientation Straight 01/03/2018 1: 26 PM FINANCIAL REPORT SERVICE SALES AGENT documented as of this encounter Medications at Time of Discharge [...] 10/26/2016 5 documented as of this encounter Plan of Treatment Upcoming Encounters Date Type Department Care Team (Late st Contact Info) Description 01/08/2025 11:30 AM FINANCIAL REPORT SERVICE SALES AGENT Nurse Only Department of Urology in [address] [phone] 02/08/2025 11:00 AM FINANCIAL REPORT SERVICE SALES AGENT Appointment Department of Radiology in [address] [phone] Kennedi Dan APRN, C.N.P. [address] [phone] 02/08/2025 12:00 PM FINANCIAL REPORT SERVICE SALES AGENT Appointment Department of Radiology in [place], [place] [address] [place] [phone] Kennedi Dan APRN, C.N.P. [address] [phone] 02/12/2025 11:00 AM FINANCIAL REPORT SERVICE SALES AGENT Office Visit Department of Urology in [place], [place] [address] [place] [phone] Kennedi Dan APRN, C.N.P. [address] [phone] documented as of this encounter Procedures Procedure Name Priority Date/Time Associated Diagnosis Comments PET CT SKULL TO THIGH RAD - Routine (most inpatients and all outpatients) 12/06/2024 2:35 PM CDT Loss Weight documented in this encounter Results * PET CT Skull [...] RADIOPHARMACEUTICAL/MEDS: Route: intravenous fludeoxyglucose F 18 injection RESIDENTIAL (F-18 FDG),14.4 millicurie Procedure Note Roselyn Fabian [...] RADIOPHARMACEUTICAL/MEDS: Route: intravenous fludeoxyglucose F 18 injection RESIDENTIAL (F-18 FDG),14.4 millicurie IMPRESSION: 1. Moderately FDG [...] Diagnosis Loss Weight documented in this encounter Administered Medications Inactive Administered Medications - up to 3 most recent administrations Medication Order MAR Action Action Date Dose Rate Site fludeoxyglucose F 18 injection RESIDENTIAL (F-18 FDG) 14.4 millicurie, intravenous, Once, On Christelle 12/06/24 at 1315, For 1 dose, Imaging Protocol Orders Given 12/06/2024 12:55 PM CDT 14.4 millicuries Right Antecubital documented in this encounter Care Teams Stroke Belt Sander Operator Relationship Specialty Start Date End Date Elsewhere, Pcp PCP - General Family Medicine 06/08/22 documented as of this encounter
--- OUTSIDE RECORDS SUMMARY | 2024-12-06 11:35 | XMS_ITS | Encounter Summary ---
Author Organization [facility] Address [address] [place] [address] Care Team Providers Care Director Water And Waste Services Name Role Phone Elsewhere, Pcp Primary Care Provider Unavailabl e Reason for Referral * MRI/CAT/PET Scan (Routine) - Closed Specialty Diagnoses / Procedures Referred By Contac t Referred To Contact Diagnoses Loss Weight Procedures PET CT Skull to Thigh FDG Nathalie Hwang M.D. [address] [place] [address] Phone: tel: fax: [facility] Region Referral ID Status Reason Start Date Expiration Date Visits Re quested Visits Authorized [id number] Closed 12/04/2024 03/06/2026 1 1 Reason for Visit * MRI/CAT/PET Scan (Routine) - Closed Specialty Diagnoses / Procedures Referred By Alexander ridley Referred To Contact Diagnoses Loss Weight Procedures PET CT Skull to Thigh FDG Nathalie Hwang M.D. [address] [place] [address] Phone: tel: fax: [facility] Region Referral ID Status Reason Start Date Expiration Date Visits Re quested Visits Authorized [id number] Closed 12/04/2024 03/06/2026 1 1 Encounter Details Date Type Department Care Team (Latest Contact Info) Description 12/06/2024 12:35 PM CDT - 12/06/2024 11:59 PM CDT Hospital Encounter Department of Radiology in [place], [place] [address], [place] [address] Nathalie Hwang M.D. [address] [place] [address] Loss Weight Discharge Disposition: Home or Self Care Social History Tobacco Use Types Packs/Day Years Used Date Smoking Tobacco: Former Cigarettes 1 25 0 02/08/1956 - 02/07/1981 Passive Smoke Exposure: Past Smokeless Tobacco: Never Chew Quit: 03/03/1981 Passive Exposure Comments:No t for Years Alcohol Use Standard Drinks/Week Comments Yes 7 (1 standard drink = 0.6 oz pur e alcohol) [facility] Utilities Answer Date Recorded In the past 12 months has e [employer], gas, oil, or water [employer] threatened to shut off services in your [...] your living situation today? [facility] 07/27/2024 Education Answer Date Recorded What is the highest level of school you have completed or the highest degree you have received? 12th grade 06/09/2022 Sex and Gender Information Value Date Recorded Sex Assigned at Male 01/03/2018 1:26 PM QUALITY ASSURANCE MONITOR BODY Legal Sex Male 4:09 AM QUALITY ASSURANCE MONITOR BODY Gender Identity Not on file Sexual Orientation Straight 01/03/2018 1: 26 PM QUALITY ASSURANCE MONITOR BODY documented as of this encounter Medications at [...] st Contact Info) Description 01/08/2025 11:30 AM QUALITY ASSURANCE MONITOR BODY Nurse Only Department of Urology in [address] [phone] 02/08/2025 11:00 AM QUALITY ASSURANCE MONITOR BODY Appointment Department of Radiology in [address] [phone] Kennedi Dan APRN, C.N.P. [address] [address] 02/08/2025 12:00 PM QUALITY ASSURANCE MONITOR BODY Appointment Department of Radiology in [place], [place] [address] [place] [phone] Kennedi Dan APRN, C.N.P. [address] [phone] 02/12/2025 11:00 AM QUALITY ASSURANCE MONITOR BODY Office Visit Department of Urology in [place], [place] [address] [place] [phone] Kennedi Dan APRN, C.N.P. [address] [phone] documented as of this encounter Procedures Procedure [...] RADIOPHARMACEUTICAL/MEDS: Route: intravenous fludeoxyglucose F 18 injection SKILLED NURSING (F-18 FDG),14.4 millicurie Procedure Note Roselyn Fabian [...] RADIOPHARMACEUTICAL/MEDS: Route: intravenous fludeoxyglucose F 18 injection SKILLED NURSING (F-18 FDG),14.4 millicurie IMPRESSION: 1. Moderately FDG [...] Dose Rate Site fludeoxyglucose F 18 injection SKILLED NURSING (F-18 FDG) 14.4 millicurie, intravenous, Once, On Christelle 12/06/24 at 1315, For 1 dose, Imaging Protocol Orders Given 12/06/2024 12:55 PM CDT 14.4 millicuries Right Antecubital documented in this encounter Care Teams Director Water And Waste Services Relationship Specialty Start Date End Date Elsewhere, Pcp PCP - General Family Medicine 06/08/22 documented as of this encounter
--- OUTSIDE RECORDS SUMMARY | 2024-12-11 14:30 | XMS_ITS | Encounter Summary ---
Author Organization [facility] Address [address] [place] [address] Care Team Providers Care Hitcher Name Role Phone Elsewhere, Pcp Primary Care Provider Unavailabl e Reason for Referral * Outpatient (Routine) - Authorized Specialty Diagnoses / Procedures Referred By Alexander t Referred To Contact Diagnoses Retention Urinary Procedures Bladder Catheterization Kennedi Dan APRN, C.N.P. [address], [place] [address] Phone: tel: fax: [facility] Region Referral ID Status Reason Start Date Expiration Date V isits Requested Visits Authorized [id number] Authorized 12/11/2024 03/13/2026 1 1 EL ENDSHAKER ADJUSTER Reason for Visit * Reason Comments Nurse Visit catheter exchange Encounter Details Date Type Department Care Team (Late st Contact Info) Description 12/11/2024 2:30 PM BARREL ENDSHAKER ADJUSTER Nurse Only Department of Urology in [place], [place] [address] [place] [phone] Cata Taylor, R.NBony Nurse Visit (catheter exchange) Social History Tobacco Use Types Packs/Day Years Used Date Smoking Tobacco: Former Cigarettes 1 25 0 [birth year]/08/1956 - 02/07/1981 Passive Smoke Exposure: Past Smokeless Tobacco: Never Chew Quit: 03/03/1981 Passive Exposure Comments:No t for Years Alcohol Use Standard Drinks/Week Comments Yes 7 (1 standard drink = 0.6 oz pur e alcohol) [facility] Utilities Answer Date Recorded In the [...] your living situation today? I have a [facility] place to live 07/27/2024 Education Answer Date Recorded What is the highest level of school you have completed or the highest degree you have received? 12th grade 06/09/2022 Sex and Gender Information Value Date Recorded Sex Assigned at Male 01/03/2018 1:26 PM BARREL ENDSHAKER ADJUSTER Legal Sex Male 4:09 AM BARREL ENDSHAKER ADJUSTER Gender Identity Not on file Sexual Orientation Straight 01/03/2018 1: 26 PM BARREL ENDSHAKER ADJUSTER documented as of this encounter Procedure Notes * Cata Taylor R.N. - 12/11/2024 2:30 PM CSTAssociated Order(s): Bladder Catheterization Post-Procedure Diagnose(s): Retention Urinary Bladder Catheterization Performed by: Cata Taylor R.N. Authorized by: Kennedi Dan APRN, C.N.PBony Care team members present 1. Sophia Gaspar R.N. PROCEDURE DETAILS Catheter insertion: suprapubic Suprapubic catheter type: exchange Catheter type: flores Catheter size: 20 Fr Balloon inflation amount (mL): 10 Bladder irrigation: no Number of attempts: 1 Urine characteristics: yellow and clear CONSENT Consent obtained: verbal PRE-PROCEDURE DETAILS Indication: urinary retention SEDATION / ANESTHESIA Anesthesia method: none POST-PROCEDURE DETAILS Procedure completed successfully: yes Complications: no immediate complications COMMENTS Patient tolerated. Denies questions or concerns about catheterization. EL ENDSHAKER ADJUSTER documented in this encounter Plan of Treatment Upcoming Encounters Date Type Department Care Team (Late st Contact Info) Description 01/08/2025 11:30 AM BARREL ENDSHAKER ADJUSTER Nurse Only Department of Urology in [place], [place] [address] [place] [phone] 02/08/2025 11:00 AM BARREL ENDSHAKER ADJUSTER Appointment Department of Radiology in [place], [place] [address] [place] [phone] Kennedi Dan APRN, C.N.P. [address] [phone] 02/08/2025 12:00 PM BARREL ENDSHAKER ADJUSTER Appointment Department of Radiology in [place], [place] [address] [phone] Kennedi Dan APRN, C.N.P. [address] [phone] 02/12/2025 11:00 AM BARREL ENDSHAKER ADJUSTER Office Visit Department of Urology in [address] [place] [address] Kennedi Dan APRN, C.N.P. [address] [facility] [place] [address] documented as of this encounter Procedures Procedure Name Priority Date/Time Associated Diagnosis Comments BLADDER CATHETERIZATION Routine 12/12/19 2:30 PM BARREL ENDSHAKER ADJUSTER Retention Urinary documented in this encounter Results * Bladder Catheterization (12/11/2024 2:30 PM BARREL ENDSHAKER ADJUSTER) Narrative MMODAL - 12/11/2024 2:30 PM BARREL ENDSHAKER ADJUSTER Cata Taylor R.N. 12/11/2024 2:31 PM Bladder Catheterization Performed by: Cata Taylor R.N. Authorized by: Kennedi Dan APRN, C.N.PBony Care team members present 1. Sophia Gaspar R.N. PROCEDURE DETAILS Catheter insertion: suprapubic Suprapubic catheter type: exchange Catheter type: flores Catheter size: 20 Fr Balloon inflation amount (mL): 10 Bladder irrigation: no Number of attempts: 1 Urine characteristics: yellow and clear CONSENT Consent obtained: verbal PRE-PROCEDURE DETAILS Indication: urinary retention SEDATION / ANESTHESIA Anesthesia method: none POST-PROCEDURE DETAILS Procedure completed successfully: yes Complications: no immediate complications COMMENTS Patient tolerated. Denies questions or concerns about catheterization. Kennedi Dan APRN, C.N.P. PROCEDURE/MINOR S URGICAL ORDERABLES Final Result MMODAL NA documented in this encounter Visit Diagnoses Diagnosis Retention Urinary- Primary documented in this encounter Care Teams Hitcher Relationship Specialty Start Date End Date Elsewhere, Pcp PCP - General Family Medicine 06/08/22 documented as of this encounter
--- OUTSIDE RECORDS SUMMARY | 2024-12-11 14:30 | XMS_ITS | Encounter Summary ---
Author Organization [facility] Address [address] [place] [address] Care Team Providers Care Jewelry Facer Name Role Phone Elsewhere, Pcp Primary Care Provider Unavailabl e Reason for Referral * Outpatient (Routine) - Authorized Specialty Diagnoses / Procedures Referred By Alexander t Referred To Contact Diagnoses Retention Urinary Procedures Bladder Catheterization Kennedi Dan APRN, C.N.P. [address], [place] [address] Phone: tel: fax: [facility] Region Referral ID Status Reason Start Date Expiration Date V isits Requested Visits Authorized [id number] Authorized 12/11/2024 03/13/2026 1 1 SPERSON [employer] Reason for Visit * Reason Comments Nurse Visit catheter exchange Encounter Details Date Type Department Care Team (Late st Contact Info) Description 12/11/2024 2:30 PM SALESPERSON [employer] Nurse Only Department of Urology in [place], [place] [address] [place] [address] Cata Taylor, R.NBony Nurse Visit (catheter [...] your living situation today? I have a [facility] place to live 07/27/2024 Education Answer Date Recorded What is the highest level of school you have completed or the highest degree you have received? 12th grade 06/09/2022 Sex and Gender Information Value Date Recorded Sex Assigned at Male 01/03/2018 1:26 PM SALESPERSON [employer] Legal Sex Male 4:09 AM SALESPERSON [employer] Gender Identity Not on file Sexual Orientation Straight 01/03/2018 1: 26 PM SALESPERSON [employer] documented as of this encounter Procedure Notes [...] tolerated. Denies questions or concerns about catheterization. [employer] documented in this encounter Plan of Treatment Upcoming Encounters Date Type Department Care Team (Late st Contact Info) Description 01/08/2025 11:30 AM SALESPERSON [employer] Nurse Only Department of Urology in [place], [place] [address] [place] [phone] 02/08/2025 11:00 AM SALESPERSON [employer] Appointment Department of Radiology in [place], [place] [address] [place] [phone] Kennedi Dan APRN, C.N.P. [address] [phone] 02/08/2025 12:00 PM [employer]ESP[employer] Appointment Department of Radiology in [place], [place] [address] [phone] Kennedi Dan APRN, C.N.P. [address] [phone] 02/12/2025 11:00 AM SALESPERSON [employer] Office Visit Department of Urology in [address] [place] [address] Kennedi Dan APRN, C.N.P. [address] [place] [address] documented as of this encounter Procedures Procedure Name Priority Date/Time Associated Diagnosis Comments BLADDER CATHETERIZATION Routine 12/12/19 2:30 PM SALESPERSON [employer] Retention Urinary documented in this encounter Results * Bladder Catheterization (12/11/2024 2:30 PM SALESPERSON [employer]) Narrative [facility]ODAL - 12/11/2024 2:30 PM [employer]ESP[employer] Cata Taylor R.N. 12/11/2024 2:31 PM Bladder [...] Primary documented in this encounter Care Teams Jewelry Facer Relationship Specialty Start Date End Date Elsewhere, Pcp PCP - General Family Medicine 06/08/22 documented as of this encounter
[2024-12-31] VITALS (37 sets, daily range): BP systolic 98–127; BP diastolic 53–81; PULSE 74–91; RESP 9–31; TEMP 36.8; O2SAT 86–96
--- OUTSIDE RECORDS SUMMARY | 2024-12-31 17:39 | XMS_ITS | Clinical Summary ---
Author Organization [facility] Address [address] [place] [address] Care Team Providers Care Spray Ii Painter Name Role Phone Elsewhere, Pcp Primary Care Provider Unavailabl e Source Comments Patient records contain information from all sites at [facility]. For routine questions regarding patient records, call [phone] during business hours, M-F 8:00 AM - 5:00 PM Central Time. Record requests for emergency care only can be directed to [phone] at any time.[facility] Allergies Active Allergy Reactions Criticality Noted Date Comments Codeine Headache Low 05/30/2002 Other reaction(s): mild Medications * This document contains information received from the source organization and may not represent a complete record from that organization. metoprolol succinate (TOPROL-XL) 25 mg 24 hr tablet Take 1 tablet (25 mg total) by mouth daily. Do not crush or chew. PLUS a 50mg tablet daily 90 tablet 3 0 Active triamterene-hy droCHLOROthiaz bailey (DYAZIDE) 37.5-25 mg per capsule TK 1 C PO D 9 Active nitroglycerin (NITROSTAT) 0.[address] 0.4 mg under the tongue every 5 (five) minutes as needed for chest pain. 0 Active losartan (Cozaar) 25 mg tablet Take 25 [...] significant blood in the urine. 3 Active Additional Information Patient taking differently: 4 mg oral Daily, TAKE 2 TABLETS BY MOUTH EVERY DAY IN THE EVENING OR DIRECTEDYou may resume 24-48 hours after your urologic surgery if no significant blood in the urine., Reported on 12/04/2024 atorvastatin (LIPITOR) 40 mg tablet Take 1 tablet by mouth at bedtime. 3 Active magnesium oxide (Mag-Ox) 400 mg (241.3 mg magnesium) tablet Take 1 tablet by mouth daily. 4 Active acetaminophen (TYLENOL) 500 mg tablet Take 2 tablets by mouth every 8 (eight) hours as needed. pain. Max tylenol dose 3000mg in 24 hours 7 Discontinu ed(Discont inued by another clinician) calcium citrate-vitami n D3 (CITRACAL + D MAXIMUM) 315-250 mg-unit per tablet Take 1 tablet by mouth daily. bone health 7 025 Discontinu ed(Discont inued by another clinician) tamsulosin (FLOMAX) 0.4 mg 24 hr capsule Take 2 capsules by mouth daily. BPH 7 025 Discontinu ed(Discont inued by another clinician) methocarbamoL (Robaxin) 500 mg tablet Take 500 mg by mouth daily. 1/2 tablet daily Discontinu ed(Discont inued by another clinician) Active Problems Problem Noted Date Diagnosed Date Other Pneumothorax 12/20/2024 Thrombosis Deep Vein Personal History 09/23/2022 Atrial Fibrillation Paroxysmal 09/10/2022 Overview (09/10/2022): by 48 hour holter 07/2020 Benign Prostatic Hyperplasia Without Lower Urinary Tract Symptom 09/10/2022 Overview (09/10/2022): Converted from [employer] Hyperlipidemia 09/10/2022 Hypertension Essential Primary 09/10/2022 Overview (09/10/2022): Converted from [employer] Unspecified Diastolic (Congestive) Heart Failure 09/10/2022 Hematuria Gross 09/10/2022 Mass Bladder 09/10/2022 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 Nurse Visit (catheter exchange) 12/06/2024 12:35 PM CDT - 12/06/2024 11:59 PM CDT Hospital Encounter Department of Radiology in [address] [address] Nathalie Hwang M.D. Loss Weight Discharge Disposition: Home or Self Care 12/04/2024 7:26 AM CDT - 12/04/2024 11:59 PM CDT Hospital Encounter Division of Pulmonary Medicine in [place], [place] [address] [place] [address] Nathalie Hwang M.D. Loss Weight (Primary Dx); Restrictive Lung Disease; Other Pneumothorax Discharge Disposition: Home or Self Care 12/03/2024 1:00 PM CDT Ancillary Procedure Department of Radiology in [place], [place] [address] [place] [address] Nathalie Hwang M.D. Loss Weight 12/03/2024 12:55 PM CDT Ancillary Procedure Department of Radiology in [place], [place] [address] [place] [address] Nathalie Hwang M.D. Loss Weight 12/03/2024 Orders Only Division of Pulmonary Medicine in [place], [place] [address] [place] [address] Nathalie Hwang M.D. Loss Weight (Primary Dx) 11/27/2024 Clinical Communication Division of Pulmonary Medicine in [place], [place] [address] [place] [address] Nathalie Hwang M.D. 11/07/2024 1:30 PM CDT Nurse Only Department of Urology in [place], [place] [address] [place] [address] Sophia Gaspar, R.N. Nurse Visit 10/10/2024 11:30 AM CDT Nurse Only Department of Urology in [place], [place] [address] [place] [address] Sophia Gaspar, R.N. Nurse Visit from Last 3 Months Immunizations Immunization Administration [...] drink = 0.6 oz pur e alcohol) [facility] Utilities Answer Date Recorded In the past 12 months has e [employer], gas, oil, or water [employer] threatened to shut off services in your [...] your living situation today? I have a [facility] place to live 07/27/2024 Education Answer Date Recorded What is the highest level of school you have completed or the highest degree you have received? 12th grade 06/09/2022 Sex and Gender Information Value Date Recorded Sex Assigned at Male 01/03/2018 1:26 PM APPRENTICE COSMETOLOGIST Legal Sex Male 4:09 AM APPRENTICE COSMETOLOGIST Gender Identity Not on file Sexual Orientation Straight 01/03/2018 1: 26 PM APPRENTICE COSMETOLOGIST Last Filed Vital Signs Vital Sign Reading Time Taken Comments Blood Pressure 129/77 12/04/2024 7:41 AM CDT Pulse 79 12/04/2024 7:41 AM CDT Temperature 36.5 C (97.7 F) 12/04/2024 7:41 AM CDT Respiratory Rate 16 08/25/2023 10:15 AM CDT Oxygen Saturation 95% 12/04/2024 7:41 AM CDT Inhaled Oxygen Concentration - - Weight 83.6 kg (184 lb 4.9 oz) 12/04/2024 7:41 A M CDT Height 176.2 cm (5' 9.37) 12/04/2024 7:41 AM CD T Body Mass Index 26.93 12/04/2024 7:41 AM CDT Plan of Treatment Upcoming Encounters Date Type Department Care Team (Late st Contact Info) Description 01/08/2025 11:30 AM APPRENTICE COSMETOLOGIST Nurse Only Department of Urology in [place], [place] [address] [place] [phone] 02/08/2025 11:00 AM APPRENTICE COSMETOLOGIST Appointment Department of Radiology in [place], [place] [address] [place] [phone] Kennedi Dan APRN, C.N.P. [address], [place] [phone] 02/08/2025 12:00 PM APPRENTICE COSMETOLOGIST Appointment Department of Radiology in [place], [place] [address] [place] [address] Kennedi Dan APRN, C.N.P. [address] [phone] 02/12/2025 11:00 AM APPRENTICE COSMETOLOGIST Office Visit Department of Urology in [place], [place] [address] [place] [address] Kennedi Dan APRN, C.N.P. [address] [place] [address] Health Maintenance Due Date Last Done Comments DTaP,Tdap,and Td Vaccines (2 - Td or Tdap) 06/14/2023 06/13/2013, 05/13/2008 Depression Screening (Annual PHQ-2) 02/08/2024 Fall Risk Screen (Annual) 02/08/2024 Creatinine Level (Kidney Function Test) 12/07/2024 12/08/2023, 12/07/2023, 12/06/2023, Additional history exists Potassium Level 12/07/2024 12/08/2023, 11/09, 12/06/2023, Additional history exists Sodium Level 12/07/2024 12/08/2023, 11/09, 12/06/2023, Additional history exists COVID-19 Vaccine (2024- season) 2025 10/31/2024, 12/23/2023, 12/07/2022, Additional history exists Zoster Vaccines Completed 11/06/2018, 08/08, 02/11/2011 Pneumococcal vaccine (50+ years) Completed 08/27/2022, 07/03/2014, 05/22/2008, Additional history exists RSV vaccine - (32-36 weeks) or 50+ years Completed 12/07/2022 Influenza Vaccine Completed 10/31/2024, , 11/04/2022, Additional history exists IPV Vaccines Aged Out No longer eligi ble based on patient's age to complete this topic Medical Devices Implanted Type Area Pipe Fitter Fire Sprinkler Systems Device Identifier Shelf Expiration Date Model / Serial / Lot Infuse Bmp Xxsmall - [id number] [id number] Implanted:Qty: 1 on 10/26/2016 Bone or Tissue Other/Legacy - See Implant Description Other/Legacy - See Implant Description Description:Device Manufactu rer - [employer] Dane[employer]. Body Location - Other. arthrodesis. Device Status Text - [id number]. Stimublast Dbm Gel 5cc - Rosado [id number] Implanted:Qty: 1 on 10/26/2016 Bone or Tissue Other/Legacy - See Implant Description Arthrex Description:Device Manufactu rer - Ar[employer]rex. Body Location - Other. arthrodesis. Device Status Text - [id number]. Stnt Synergy Art Rx3.5x16 - [id number] Implanted:Qty: 1 on 03/06/2018 by Farheen Branch M.D. at [facility] Cardiac Stent N/A: Coronary [employer] 12/07/2019 [id number] / [id number] Description:pRCA Simmetry Screw 12.5mm X 80 - Rosado [id number] Implanted:Qty: 1 on 10/26/2016 Hardware e.g. pins/screws /rods Other/Legacy - See Implant Description [employer] Description:Device Manufactu rer - [employer]. Body Location - Other. Right. Device Status Text - [id number]. Simmetry Washer 12.5mm - Rosado [id number] Implanted:Qty: 1 on 10/26/2016 Hardware e.g. pins/screws /rods Other/Legacy - See Implant Description [employer] Description:Device Manufactu rer - [employer]. Body Location - Other. Right. Device Status Text - [id number]. Conversions - Default Historical Implant Device Implanted:10/26 (Quantity not on file) Misc Other Abdomen Description:Body Location - Abdominal. Device Status Text - MiscOther. mesh from hernia repair. Ocular Lens Ocular Lens Bilateral: Eye Procedures Procedure Name Priority Date/Time Associated Diagnosis Comments BLADDER CATHETERIZATION Routine 12/11/2024 2:30 PM APPRENTICE COSMETOLOGIST Retention Urinary PET CT SKULL TO THIGH RAD - Routine (most inpatients and all outpatients) 12/06/2024 2:35 PM CDT Loss Weight INTERPRETATION OF OUTSIDE CT CHEST RAD - Routine (most inpatients and all outpatients) 12/03/2024 12:55 PM CDT Loss Weight INTERPRETATION OF OUTSIDE CT ABDOMEN AND OR PELVIS RAD - Routine (most inpatients and all outpatients) 12/03/2024 12:55 PM CDT Loss Weight BLADDER CATHETERIZATION Routine 11/07/2024 1:30 PM CDT Retention Urinary OUTSIDE CT BODY Routine 11/02/2024 11:20 AM CDT BLADDER CATHETERIZATION Routine 10/10/2024 11:30 AM CDT Retention Urinary CREATININE WITH EGFR, S/P Routine 09/09/2022 7:17 AM CDT Hematuria Gross BASIC METABOLIC PANEL, S/P Routine 07/31/2019 2:08 PM CDT Shortness Of Breath from Last 3 Months or Most Recently Relevant to Health Maintenance Results * Bladder Catheterization (12/11/2024 2:30 PM APPRENTICE COSMETOLOGIST) Narrative MMODAL - 12/11/2024 2:30 PM APPRENTICE COSMETOLOGIST Cata Taylor R.N. 12/11/2024 2:31 PM Bladder Catheterization Performed by: Cata Taylor R.N. Authorized by: Kennedi Dan APRN, C.N.P. Care team members present 1. Sophia Gaspar [...] questions or concerns about catheterization. Kennedi Dan APRN C.N.P. PROCEDURE/MINOR S URGICAL ORDERABLES Final Result MMODAL NA * PET CT Skull to Thigh FDG [...] RADIOPHARMACEUTICAL/MEDS: Route: intravenous fludeoxyglucose F 18 injection INTERMEDIATE (F-18 FDG),14.4 millicurie Procedure Note Roselyn Fabian [...] RADIOPHARMACEUTICAL/MEDS: Route: intravenous fludeoxyglucose F 18 injection INTERMEDIATE (F-18 FDG),14.4 millicurie IMPRESSION: 1. Moderately FDG avid focus in the redundant sigmoid colon,indeterminant for neoplastic versus inflammatory process. Recommendfurther evaluation with colonoscopy to exclude colonic neoplasm. 2. Mildly FDG avid right intraparotid nodule, indeterminant but likelybenign, including Warthin's tumor or pleomorphic adenoma. Can considerfurther evaluation with ultrasound if not previously evaluated. Nathalie Hwang M.D. IM NM PROCEDURES Final Re sult * Interpretation of Outside CT Chest (12/03/2024 [...] be beneficial to ensure stability orresolution. Nathalie Hwang M.D. IMG CT PROCEDURES Final Re sult * Interpretation of Outside CT Abdomen and [...] AND OR PELVIS IV contrast 11/02/2024. COMPARISON: [facility] CT urogram 09/09/2022. FINDINGS: Radiation seeds in [...] OUTSIDE CT ABDOMEN AND OR PELVIS IV udesuifq57/26/2025. COMPARISON: [facility] CT urogram 09/09/2022. FINDINGS: Radiation seeds in [...] the abdomen or pelvis. Nathalie Hwang M.D. [facility] [place] PROCEDURES Final Re sult * Bladder Catheterization (11/07/2024 1:30 PM CDT) Narrative MMODAL - 11/07/2024 1:30 PM CDT Sophia Gaspar, R.N. 11/09/2024 10:04 AM Bladder Catheterization Performed by: Sophia Gaspar RHermes. Authorized by: Kennedi Dan APRN, C.N.P. [...] yes Complications: no immediate complications COMMENTS Patient tolerated well, no concerns. us Kennedi Dan APRN C.N.PBony PROCEDURE/MINOR S URGICAL ORDERABLES Final Result MMODAL NA * Outside CT Body (11/02/2024 11:20 AM CDT) 11/04/2024 10:3 0 AM CDT Addenda Addendum by [employer], Outside on 11/04/2024 10:30 AM CDT BELOW REPORT RECEIVED BY [facility] ON 11/28/2024 11:15:12 [id number] For Patients: As a result of the Century Cures Act, medical imaging exams and procedure reports are released immediately into your electronic medical record. You may view this report before your referring provider. If you have questions, please contact your health care provider. INDICATION: Unintended weight loss. TECHNIQUE: CT chest, abdomen and pelvis acquired with 100 mL Omnipaque 350 IV contrast. COMPARISON: CT abdomen and pelvis [address] chest 28 September 2021. FINDINGS: Chest: Cardiovascular structures: Heart size is normal. Thoracic aorta and main pulmonary artery are normal in caliber. Moderately prominent coronary artery atherosclerosis. Mediastinum and howard: No mass or adenopathy. Punctate calcified chronic right hilar lymph nodes. Lungs: Bronchiectasis, linear reticular scarring and some volume loss left upper lobe likely remote postinfectious or inflammatory. No some areas of progressing semiopaque in ground-glass opacities. No solid nodule. Chronic interstitial lung disease pulmonary fibrosis at the periphery of the lung bases. Pleura and pericardium: Chronic bilateral pleural thickening and calcification with some relative progression from comparison in both thickening and calcified plaques. Tiny loculated right dependent inferior pleural effusion. Chest wall and axilla: No mass or adenopathy. Bones: Unremarkable for age. Abdomen and Pelvis: Liver: Unremarkable. Spleen: Unremarkable. Pancreas: Unremarkable. Gallbladder and bile ducts: Cholecystectomy. No biliary ductal dilatation or filling defect. Kidneys: Unremarkable. Adrenal glands: Unremarkable. GI tract: Scattered diverticula of the colon without inflammation. No dilatation of small bowel. Vascular structures: Moderately prominent atherosclerotic calcification with some ectasia but no aneurysmal dilatation of aorta and iliacs. Lymph nodes: Unremarkable. Miscellaneous: Unremarkable. No free air or significant free fluid. Pelvic Organs: Suprapubic catheter. Brachytherapy seeds at the prostate bed. Bones: Right SI joint surgical ankylosis screw. 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 Reported history of pleurodesis on the right. Postinfectious or postinflammatory ground-glass foci show some progression in the right upper lobe. Suprapubic catheter and changes of brachytherapy treatment of the prostate. No evidence for metastatic disease. Changes of cholecystectomy. Mild colonic diverticulosis. Please note that all CT scans at this facility use dose modulation, iterative reconstruction, and/or weight-based dosing when appropriate to reduce radiation dose to as low as reasonably achievable. Dictated by Hitesh Thomas MD @ 11/04/2024 10:30:03 AM (Electronically Signed) READ BY Hitesh Thomas RELEASED BY MAHIN Addendum by [employer], Outside on 11/04/2024 10:30 AM CDT BELOW REPORT RECEIVED BY [facility] ON 11/28/2024 11:14:22 [id number] For Patients: As a result of the 21st Century Cures Act, medical imaging exams and procedure reports are released immediately into your electronic medical record. You may view this report before your referring provider. If you have questions, please contact your health care provider. INDICATION: Unintended weight loss. TECHNIQUE: CT chest, abdomen and pelvis acquired with 100 mL Omnipaque 350 IV contrast. COMPARISON: CT abdomen and pelvis [address] chest 28 September 2021. FINDINGS: Chest: Cardiovascular structures: Heart size is normal. Thoracic aorta and main pulmonary artery are normal in caliber. Moderately prominent coronary artery atherosclerosis. Mediastinum and howard: No mass or adenopathy. Punctate calcified chronic right hilar lymph nodes. Lungs: Bronchiectasis, linear reticular scarring and some volume loss left upper lobe likely remote postinfectious or inflammatory. No some areas of progressing semiopaque in ground-glass opacities. No solid nodule. Chronic interstitial lung disease pulmonary fibrosis at the periphery of the lung bases. Pleura and pericardium: Chronic bilateral pleural thickening and calcification with some relative progression from comparison in both thickening and calcified plaques. Tiny loculated right dependent inferior pleural effusion. Chest wall and axilla: No mass or adenopathy. Bones: Unremarkable for age. Abdomen and Pelvis: Liver: Unremarkable. Spleen: Unremarkable. Pancreas: Unremarkable. Gallbladder and bile ducts: Cholecystectomy. No biliary ductal dilatation or filling defect. Kidneys: Unremarkable. Adrenal glands: Unremarkable. GI tract: Scattered diverticula of the colon without inflammation. No dilatation of small bowel. Vascular structures: Moderately prominent atherosclerotic calcification with some ectasia but no aneurysmal dilatation of aorta and iliacs. Lymph nodes: Unremarkable. Miscellaneous: Unremarkable. No free air or significant free fluid. Pelvic Organs: Suprapubic catheter. Brachytherapy seeds at the prostate bed. Bones: Right SI joint surgical ankylosis screw. 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 Reported history of pleurodesis on the right. Postinfectious or postinflammatory ground-glass foci show some progression in the right upper lobe. Suprapubic catheter and changes of brachytherapy treatment of the prostate. No evidence for metastatic disease. Changes of cholecystectomy. Mild colonic diverticulosis. Please note that all CT scans at this facility use dose modulation, iterative reconstruction, and/or weight-based dosing when appropriate to reduce radiation dose to as low as reasonably achievable. Dictated by Hitesh Thomas MD @ 11/04/2024 10:30:03 AM (Electronically Signed) READ BY Hitesh Thomas RELEASED BY MAHIN [email or web address] [facility] - 11/28/2024 11:27 AM CDT This order has been created and auto-finalized to support the import of outside images. If available, original interpretation can be found on the Media Tab in Chart Review, in Document Viewer, as an image in Inf[employer] or as an Addendum. If a re-interpretation or overread is required please follow defined workflow. Procedure Note [employer], Outside - 11/28/2024 This order has been created and auto-finalized to support the import ofoutside images. If available, original interpretation can be found on theMedia Tab in Chart Review, in Document Viewer, as an image in InfinityViewor as an Addendum. If a re-interpretation or overread is required please follow definedworkflow. us Provider Not In System IMG CT PROCEDURES Edited Result - Final IMAGING NA * Bladder Catheterization (10/10/2024 11:30 AM CDT) Narrative MMODAL - 10/10/2024 11:30 AM CDT Sophia Gaspar R.N. 10/15/2024 3:40 PM Bladder Catheterization Performed by: Sophia Gaspar R.N. Authorized by: Kennedi Dan APRN, C.N.P. PROCEDURE [...] yes Complications: no immediate complications COMMENTS Patient tolerated well, no concerns. us Kennedi Dan APRN, C.N.P. PROCEDURE/MINOR S URGICAL ORDERABLES Final Result MMODAL NA * Creatinine with Estimated GFR (09/09/2022 7:17 AM CDT) Creatinine 1.13 0.74 - 1.35 mg/dL 09/09/2022 9:20 AM CDT DTL Estimated GFR (eGFR) 63 >=60 mL/min/BSA 09/09/2022 9:20 AM CDT DTL Comment: Estimated GFR calculated using the 2020 CKD_EPI creatinine equation. Blood (Blood, Venous) 09/09/2022 7:17 AM CDT 09/09/2022 7:56 AM CDT Junior García M.D., M.P.H. LAB BLOOD ADD-ON Final Re sult Performing Organization Address [facility] Co de Phone Number [facility] [address] [place] [address], [facility] [address] [place] [address] * (ABNORMAL) Basic Metabolic Panel (07/31/2019 2:08 PM CDT) Potassium, S 4.0 3.6 - 5.2 mmol/L 07/31/2019 3:18 PM CDT DTL Sodium, S 142 135 - 145 mmol/L 07/31/2019 3:18 PM CDT DTL Chloride, S 101 98 - 107 mmol/L 07/31/2019 3:18 PM CDT DTL Bicarbonate, S 31(H) 22 - 29 mmol/L 07/31/2019 3:18 PM CDT DTL Anion Gap 10 7 - 15 07/31/2019 3:18 PM CDT DTL BUN (Blood Urea Nitrogen), S 22 8 - 24 mg/dL 07/31/2019 3:18 PM CDT DTL Creatinine 1.17 0.74 - 1.35 mg/dL 07/31/2019 3:18 PM CDT DTL eGFR-Non Black/ 57(L) >=60 mL/min/BSA 07/31/2019 3:18 PM CDT DTL Comment: ----ADDITIONAL INFORMATION---- Estimated GFR calculated using the 2009 CKD_EPI creatinine equation. eGFR-Black/Afric an Greenlandic 66 >=60 mL/min/BSA 07/31/2019 3:18 PM CDT DTL Comment: ----ADDITIONAL INFORMATION---- Estimated GFR calculated using the 2009 CKD_EPI creatinine equation. Calcium, Total, S 9.4 8.8 - 10.2 mg/dL 07/31/2019 3:18 PM CDT DTL Glucose, S 85 70 - 140 mg/dL 07/31/2019 3:18 PM CDT DTL Blood (Blood, Venous) 07/31/2019 2:08 PM CDT 07/31/2019 2:41 PM CDT Chong Sesay M.D. 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 See document viewer. * Full Code (Latest Code Status on File) Date Activated Date Inactivated Comments 03/06/2018 2:36 PM 03/06/2018 9:26 PM Question Answer Comments Full Code: Not Discussed Due to: Patient not available Care Teams Spray Ii Painter Relationship Specialty Start Date End Date Elsewhere, Pcp PCP - General Family Medicine 06/08/22
--- OUTSIDE RECORDS SUMMARY | 2024-12-31 17:40 | XMS_ITS | Encounter Summary ---
Author Organization [facility] Address [address] [place] [address] Care Team Providers Care Training Consultant Name Role Phone Elsewhere, Pcp Primary Care Provider Unavailabl e Encounter Details Date Type Department Care Team (Late st Contact Info) Description 11/27/2024 Clinical Communication Division of Pulmonary Medicine in [place], [place] [address] [place] [phone] Nathalie Hwang M.D. [address] [place] [phone] Social History Tobacco Use Types Packs/Day Years Used Date Smoking Tobacco: Former Cigarettes 1 25 0 02/08/1956 - 02/07/1981 Passive Smoke Exposure: Past Smokeless Tobacco: Never Chew Quit: 03/03/1981 Passive Exposure Comments:No t for Years Alcohol Use Standard Drinks/Week Comments Yes 7 (1 standard drink = 0.6 oz pur e alcohol) [facility] Utilities Answer Date Recorded In the past 12 months has [facility] [employer], gas, oil, or water [employer] threatened to shut off services in your [...] your living situation today? I have a [facility] place to live 07/27/2024 Education Answer Date Recorded What is the highest level of school you have completed or the highest degree you have received? 12th grade 06/09/2022 Sex and Gender Information Value Date Recorded Sex Assigned at Male 01/03/2018 1:26 PM ENTERTAINMENT MANAGER Legal Sex Male 4:09 AM ENTERTAINMENT MANAGER Gender Identity Not on file Sexual Orientation Straight 01/03/2018 1: 26 PM ENTERTAINMENT MANAGER documented as of this encounter Plan of Treatment Upcoming Encounters Date Type Department Care Team (Late st Contact Info) Description 01/08/2025 11:30 AM ENTERTAINMENT MANAGER Nurse Only Department of Urology in [place], [place] [address] [phone] 02/08/2025 11:00 AM ENTERTAINMENT MANAGER Appointment Department of Radiology in [place], [place] [address] [phone] Kennedi Dan APRN, C.N.P. [address] [phone] 02/08/2025 12:00 PM ENTERTAINMENT MANAGER Appointment Department of Radiology in [place], [place] [address] [phone] Kennedi Dan APRN, C.N.P. [address] [phone] 02/12/2025 11:00 AM ENTERTAINMENT MANAGER Office Visit Department of Urology in [place], [place] [address] [place] [phone] Kennedi Dan APRN, C.N.P. [address] [phone] documented as of this encounter Visit Diagnoses Not on filedocumented in this encounter Care Teams Training Consultant Relationship Specialty Start Date End Date Elsewhere, Pcp PCP - General Family Medicine 06/08/22 documented as of this encounter
--- OUTSIDE RECORDS SUMMARY | 2024-12-31 17:40 | XMS_ITS | Clinical Summary ---
Author Organization [employer] [facility] Address [address] [place] [id number] Care Team Providers Care Assistant Broker Name Role Phone Vira Green Unavailable [phone] Lee Broderick MD Primary Care Provider Allergies Active Allergy Reactions Criticality Noted Date Comments Codeine Headache Low 04/28/2020 Other reaction(s): mild Medications Walker with Wheels For home use. 1 Device 0 3 Active nitroglycerin (NITROSTAT) 0.4 mg sublingual tabletIndication s:PATEL (dyspnea on exertion) Place 1 Tablet (0.4 mg) under the tongue every 5 minutes if needed for Chest Pain. 30 Tablet 2 4 Active magnesium oxide (MAG-OX 400) 400 mg tabletIndication s:Cramps, extremity Take 1 Tablet (400 mg) by mouth once daily. 30 Tablet 1 4 Active atorvastatin (LIPITOR) 40 mg tabletIndication s:Hyperlipidemia with target LDL less than 100 Take 1 Tablet (40 mg) by mouth at bedtime. 90 Tablet 3 5 Active albuterol HFA (PRO-AIR; VENTOLIN; PROVENTIL) 90 mcg/actuation inhalerIndicatio ns:SOB (shortness of breath) Inhale 1-2 Puffs by mouth every 4 hours if needed for Shortness Of Breath or Wheezing. 1 Each 1 5 Active losartan (COZAAR) 50 mg tabletIndication s:Essential hypertension Take 1 Tablet (50 mg) by mouth once daily. 90 Tablet 3 5 Active metoprolol succinate (TOPROL XL) 25 mg Sustained-Releas e tabletIndication s:Essential hypertension Take 1 Tablet (25 mg) by mouth once daily. 90 Tablet 3 5 Active polyethylene glycol-electroly te (GOLYTELY) 236-22.74-6.74 -5.86 gram suspensionIndica tions:Colonic mass Drink up to 6 liters (one bottle and one-half bottle) the day before the procedure (until stools are clear yellow or mechanic senior) and 2 liters (half of bottle) 6 hours prior to procedure. 8000 mL 5 Active warfarin (COUMADIN) 2 mg tabletIndication s:Paroxysmal A-fib (HC),Anticoagula tion monitoring, INR range 2-3 Take by mouth 01/06: Hold; 01/07: Hold; 01/08: Hold; 01/09: Hold; 01/10: Hold; Otherwise 2 mg every Mon; 4 mg all other days in the evening OR as directed 5 Active triamterene-hydr ochlorothiazide (37.5-25 mg) (DYAZIDE) 37.5-25 mg capsuleIndicatio ns:Essential hypertension Take 1 Capsule by mouth once daily in the morning. 90 Capsule 3 5 025 Discontinu ed(*Med complete/R egimen complete/L evel of care change) warfarin (COUMADIN) 2 mg tabletIndication s:Paroxysmal A-fib (HC),Anticoagula tion monitoring, INR range 2-3 Take by mouth 2 mg (2 mg x 1) every Mon, Christelle; 4 mg (2 mg x 2) all other days in the evening OR as directed 160 Tablet 5 025 Discontinu ed(Reorder (E-cancel not sent)) warfarin (COUMADIN) 2 mg tabletIndication s:Paroxysmal A-fib (HC),Anticoagula tion monitoring, INR range 2-3 Take by mouth 2 mg (2 mg x 1) every Mon; 4 mg (2 mg x 2) all other days in the evening OR as directed 5 025 Discontinu ed(Other - add note to specify (E-cancel not sent)) Active Problems Problem Noted Date Diagnosed Date Acute on chronic intracranial subdural hematoma 12/31/24 12/31/2024 Stress due to illness of family member Chronic respiratory failure with hypoxia 025 Pulmonary nodule, right apical 1.1 cm 12/11/23 Hypoxia 12/06/2023 Suprapubic catheter placed 08/25/23 [place] 09/02/19 24 Prostate cancer 02/21/2023 Asbestosis 07/22/2021 Chronic obstructive pulmonary disease 06/09/2021 Restrictive lung disease 06/09/2021 CAD in [place] artery: JANEY to RCA 2019. Anticoagulation monitoring, [...] patient. Now with recurrence - transferred from [place] due to failure to resolve Diverticulosis of colon (dani costa mention of hemorrhage) 05/29/2006 07/29/2020 HX OF DVT 05/29/2006 07/29/2020 Overview (10/20/2007): 10 yrs ago, s/p leg injury Emphysematous bleb 9 Dyspepsia and other specifie d disorders of function of stomach 07/29/2020 Nocturia 07/29/2020 Encounters Date Type Department Care Team Description 12/31/2024 4:30 PM INSIDE ACCOUNT EXECUTIVE Ancillary Procedure [address] [place] [address] Arrived 12/31/2024 3:45 PM INSIDE ACCOUNT EXECUTIVE Office Visit [address] [place] [address] Lee Broderick MD Preoperative Exam (DOS: 01/11/2025, colonoscopy, Dr. Leone. [facility]) 12/31/2024 3:30 PM INSIDE ACCOUNT EXECUTIVE Ancillary Procedure [address] [place] [address] Arrived 12/31/2024 Travel 12/26/2024 10:30 AM INSIDE ACCOUNT EXECUTIVE Orders Only [address] [place] [address] [facility] [place] [facility] 12/26/[address] [facility] [place] [address] Lee Broderick MD Anticoagulation (Hold-Procedure) 12/26/2024 Anticoagulation (warfarin) [address] [place] [address] Nurse, [facility] Anticoag Anticoagulation 12/26/2024 Travel 12/18/2024 Telephone [facility] [address] [place] [address] Vini Leone MD Screening 12/17/2024 Telephone [facility] [address] [facility] [place] [address] Lee Broderick MD Referral ([place] PET scan findings said he needs a biopsy) 12/12/2024 1:45 PM INSIDE ACCOUNT EXECUTIVE Orders Only [facility] [address] [place] [address] [facility] [place] [facility] 12/12/2024 Anticoagulation (warfarin) [facility] [address] [place] [address] Nurse, [facility] Anticoag Anticoagulation (lab) 12/12/2024 Travel 11/28/2024 Telephone [facility] [address] [place] [address] Lee Broderick MD Imaging (Requesting images ) 11/21/2024 3:00 PM CDT Orders Only [facility] [address] [place] [address] [facility] [place] [facility] 11/21/2024 Anticoagulation (warfarin) [facility] [address] [place] [address] Nurse, [facility] Anticoag Anticoagulation 11/21/2024 Travel 11/13/2024 Telephone [facility] [address] [place] [address] Lee Broderick MD Appointment (Appointment Denied with J92.9 (ICD-10-CM) - Pleural thickening by Lee Broderick MD/) 11/04/2024 Orders Only [facility] [address] [place] [address] Lee Broderick MD <No scans attached> 11/04/2024 Refill [facility] [address] [place] [address] Lee Broderick MD Refill Request (Warfarin) 11/02/2024 11:30 AM CDT Ancillary Procedure [facility] [address] [facility] [place] [address] 11/02/2024 10:55 AM CDT Office Visit [facility] [address] [facility] [place] [address] Lee Broderick MD Weight (Unintentional weight loss); Fatigue (Weakness) 11/02/2024 Travel 10/24/2024 11:15 AM CDT Orders Only [facility] [address] [facility] [place] [address] [facility] [place] [facility] 10/24/2024 Nurse Triage [facility] [address] [place] [address] Lee Broderick MD Weight 10/24/2024 Anticoagulation (warfarin) [facility] [address] [place] [address] Nurse, [facility] Anticoag Anticoagulation 10/24/2024 Travel 10/24/2024 Telephone [facility] [address] [facility] [place] [address] Lee Broderick MD symptoms 10/02/2024 2:55 PM CDT Office Visit [facility] [address] [facility] [place] [address] Lee Broderick MD Medicare ANNUAL (subsequent) Visit (89 year old) 10/02/2024 Travel from Last 3 Months Immunizations Immunization Administration Dates Next Due COVID-19 VACCINE SPIKEVAX (M ODERNA 50MCG/0.5ML) 12YO+ PFS 10/31/2024,12/07/2022 COVID-19 vaccine (Pfizer-Bio NTech 30mcg/0.3mL) 12YO+ BIVALENT PF, MDV 08/27/2022,10/26/2021 COVID-19 vaccine (Pfizer-Bio NTech 30mcg/0.3mL) 12YO+ MARIYA-SUCROSE PF, MDV 06/01/2021 COVID-19 vaccine (Pfizer-Bio NTech 30mcg/0.3mL) PF, MDV 11/07/2020,04/05/2020,03/15/2020 Influenza A (H1N1), Inactivated 02/06/2009 Influenza Virus, Unspecified 11/07/2012, 10/21/2011,10/31/2008,11/18,11/22/2005 Influenza, High-dose Inactivated 025,12/23/2023,11/06/2018,11/02,11/15/2016,11/17/2015,11/26/2014 Influenza, IIV3 (Age 6-35 mos) 10/13/2019 Influenza, [...] Medical History Relation Name Comments Cancer-prostate Brother around 90 Stroke Brother Cancer-prostate Father at 94 Stroke Father Stroke Mother in 80's Melanoma Sister Anesthesia Problem No Family History Relation Name Status Comments Brother Daughter Alive Father (Age 93) Mother (Age [...] Answer Date Recorded PHQ-2 TOTAL SCORE 0 10/02/2024 Social Connections Answer Date Recorded Do you often feel lonely or isolated from those around you? 0 12/31/2024 Alcohol Use Answer Date Recorded How often do you have a drink containing alcohol ? 0 12/31/2024 Average Number of Drinks Not on file 025 Frequency of Binge Drinking Not on file 12/09 Financial Resource Strain Answer Date R ecorded Difficulty of Paying Living Expenses 3 12/31/2024 Difficulty of Paying Living Expenses Not on file 12/31/2024 Food Insecurity Answer Date Recorded Do you worry your food will run out before you are able to buy more? 1 12/31/2024 Transportation Needs Answer Date Record ed Does lack of transportation keep you from medica l appointments? 1 12/31/2024 Does lack of transportation keep you from work, meetings or getting things that you need? 1 12/31/2024 Housing Stability Answer Date Recorded What is your housing situation today? 1 12/31/2024 Interpersonal Safety Answer Date Record ed Are you being hit, kicked, p ushed or yelled at (see row info)? No 12/06/2023 Interpersonal Safety Abuse 12 - 18 Not on file 12/06/2023 Interpersonal Safety Ambulatory Vulnerability No t on file 12/06/2023 Utilities Answer Date Recorded Do you have trouble paying f or utilities (for example, heat, electricity, water, phone)? 1 12/31/2024 Sex and Gender Information Value Date Recorded Sex Assigned at Not on file Legal Sex Male 6:14 AM INSIDE ACCOUNT EXECUTIVE Gender Identity Not on file Sexual Orientation Not on file Occupation Industry Job Start Date Job End Date Not on file Not on file Not on file Not on file Obstetrics History Last Filed Vital Signs Vital Sign Reading Time Taken Comments Blood Pressure 102/62 12/31/2024 3:26 PM INSIDE ACCOUNT EXECUTIVE Pulse 90 12/31/2024 3:26 PM INSIDE ACCOUNT EXECUTIVE Temperature 36.4 C (97.6 F) 05/10/2024 1:35 PM CDT Respiratory Rate 14 12/08/2023 8:00 AM CDT Oxygen Saturation 97% 12/31/2024 3:26 PM INSIDE ACCOUNT EXECUTIVE Inhaled Oxygen Concentration - - Weight 83.5 kg (184 lb) 12/31/2024 3:26 PM INSIDE ACCOUNT EXECUTIVE Height 176.7 cm (5' 9.57) 12/31/2024 3:26 PM CS T Body Mass Index 26.73 12/31/2024 3:26 PM INSIDE ACCOUNT EXECUTIVE Plan of Treatment Upcoming Encounters Date Type Department Care Team (Late st Contact Info) Description 01/08/2025 1:40 PM INSIDE ACCOUNT EXECUTIVE Office Visit [facility] [address] [facility] [place] [address] Lee Broderick MD [address] [place] [address] 01/21/2025 8:30 AM INSIDE ACCOUNT EXECUTIVE Orders Only [facility] [address] [place] [address] [place] Health Maintenance Due Date Last Done Comments Tetanus booster 06/14/2023 06/13/2013, 07/2008, 01/28/1995 Depression screening for age 12+ 10/02/2025 10/02/2024, 09/02/2023, 09/02/2023, Additional history exists Medicare Wellness for age 65+ 10/03/2025 10/02/2024, 09/02/2023, 08/27/2022, Additional history exists BMI (ht and wt on same day) for age 18+ 12/31/2025 12/31/2024, 10/02/2024, 09/02/2023, Additional history exists Zoster (shingles) series for age 50+ Completed 11/06/2018, 08/31/2018, 02/11/2011 Pneumococcal series for age 50+ Completed 08/27/2022, 07/03/2014, 05/22/2008, Additional history exists RSV vaccine for adults or Completed 12/07/2022 Influenza Vaccine Completed 10/31/2024, , 11/04/2022, Additional history exists Hepatitis B series for 19+ Aged Out N o longer eligible based on patient's age to complete this topic Medical Devices Implanted Type Area Sap Technical Architect Device Identifier Shelf Expiration Date Model / Serial / Lot Mesh Prolene Hernia Extended System - [id number] Implanted:Qty: 1 on 10/21/2007 at [facility] Implants Right: Abdomen [employer] [facility] [id number] Procedures Procedure Name Priority Date/Time Associated Diagnosis Comments CT HEAD BRAIN WO STAT 12/31/2024 4:41 PM INSIDE ACCOUNT EXECUTIVE Headache syndrome INR,POCT Routine 12/26/2024 12:08 PM INSIDE ACCOUNT EXECUTIVE Paroxysmal A-fib (HC) Anticoagulation monitoring, INR range 2-3 INR,POCT Routine 12/12/2024 1:47 PM INSIDE ACCOUNT EXECUTIVE Paroxysmal A-fib (HC) Anticoagulation monitoring, INR range 2-3 INR,POCT Routine 11/21/2024 3:05 PM CDT Paroxysmal A-fib (HC) Anticoagulation monitoring, INR range 2-3 CT CHEST ABDOMEN PELVIS W SIOBHAN 11/02/2024 11:58 AM CDT Weight loss CBC WITH AUTO DIFFERENTIAL Routine 11/02/2024 11:24 AM CDT Weight loss CREATININE,ISTAT Routine 11/02/2024 11:2 4 AM CDT Observation or evaluation for suspected condition HEPATIC FUNCTION PANEL Routine 11/02/2024 11:24 AM CDT Weight loss CBC WITH AUTO DIFFERENTIAL Routine 11/02/2024 11:24 AM CDT Weight loss INR,POCT Routine 10/24/2024 11:01 AM CDT Paroxysmal A-fib (HC) Anticoagulation monitoring, INR range 2-3 TSH WITH REFLEX Routine 10/02/2024 3:10 PM CDT Weight loss PSA TOTAL Routine 10/02/2024 3:10 PM CDT Prostate cancer (HC) BASIC METABOLIC PANEL Routine 10/02/2024 3:10 PM CDT Essential hypertension LIPID PANEL W REFLEX MEASURED LDL Routine 10/02/2024 3:10 PM CDT Hyperlipidemia with target LDL less than 100 from Last 3 Months Results * CT HEAD BRAIN WO (12/31/2024 4:41 PM INSIDE ACCOUNT EXECUTIVE) Anatomical Region Laterality Modality HEAD, BRAIN Computed Tomogra phy 12/31/2024 4:52 PM INSIDE ACCOUNT EXECUTIVE Narrative 12/31/2024 4:52 PM INSIDE ACCOUNT EXECUTIVE For Patients: As a result of the Century Cures Act, medical imaging exams and procedure reports are released immediately into your electronic medical record. You may view this report before your referring provider. If you have questions, please contact your health care provider. Indication: Headache Technique: CT of the head without contrast. Coronal and sagittal reformats. Bone and soft tissue windows. Comparison: No prior studies available for comparison at this institution. Findings: There is a large hyperdense right frontoparietal subdural hematoma that measures up to 2 cm thickness with moderate mass effect on the underlying parenchyma. A left frontoparietal low-density fluid collection measures up to 1.3 cm with mild mass effect on the underlying parenchyma. Partial effacement of the right lateral ventricle frontal horn. 4 mm ttagb-dz-mcva midline shift. Moderate mucosal thickening in the left sphenoid sinus. No fractures. The calvarium is intact. The mastoid air cells and external ear canals are clear. Rightward deviation of the nasal septum with septal spur. Bilateral lens replacement. Findings were discussed with Dr. Broderick by phone at 4:50 p.m. 12/31/2024. Impression : 1. Right frontoparietal acute on chronic subdural hematoma measuring up to 2 cm with mass effect on the underlying parenchyma. 2. Left frontoparietal low-density subdural fluid collection is consistent with chronic left subdural hematoma. 3. 4 mm right to left midline shift and partial effacement of the right lateral ventricle. Please note that all CT scans at this facility use dose modulation, iterative reconstruction, and/or weight-based dosing when appropriate to reduce radiation dose to as low as reasonably achievable. Dictated by Jaylan Washington MD @ 12/31/2024 4:52:35 PM (Electronically Signed) Procedure Note Jaylan Washington MD - 12/31/2024 For Patients: As a result of the Century Cures Act, medical imagingexams and procedure reports are released immediately into your electronicmedical record. You may view this report before your referring provider.If you have questions, please contact your health care provider. Indication: Headache Technique: CT of the head without contrast. Coronal and sagittal reformats. Bone andsoft tissue windows. Comparison: No prior studies available for comparison at this institution. Findings: There is a large hyperdense right frontoparietal subdural hematoma thatmeasures up to 2 cm thickness with moderate mass effect on the underlyingparenchyma. A left frontoparietal low-density fluid collection measures upto 1.3 cm with mild mass effect on the underlying parenchyma. Partialeffacement of the right lateral ventricle frontal horn. 4 mm jasao-le-aiehagsdhsu shift. Moderate mucosal thickening in the left sphenoid sinus. Nofractures. The calvarium is intact. The mastoid air cells and external earcanals are clear. Rightward deviation of the nasal septum with septalspur. Bilateral lens replacement. Findings were discussed with Dr. Broderick by phone at 4:50 p.m. 12/31/2024. Impression : 1. Right frontoparietal acute on chronic subdural hematoma measuring up to2 cm with mass effect on the underlying parenchyma. 2. Left frontoparietal low-density subdural fluid collection is consistentwith chronic left subdural hematoma. 3. 4 mm right to left midline shift and partial effacement of the rightlateral ventricle. Please note that all CT scans at this facility use dose modulation,iterative reconstruction, and/or weight-based dosing when appropriate toreduce radiation dose to as low as reasonably achievable. Dictated by Jaylan Washington MD @ 12/31/2024 4:52:35 PM (Electronically Signed) us Lee Broderick MD CT Final Result * (ABNORMAL) INR - POCT [[id number]] - Standing Order (12/26/2024 12:08 PM INSIDE ACCOUNT EXECUTIVE) Only the most recent of4 resultswithin the time period is included. INR 2.7(H) ratio 12/26/2024 12:19 PM INSIDE ACCOUNT EXECUTIVE [facility] Comment: INRs >2.9 may be falsely elevated in patients receiving either unfractionated Heparin or Low Molecular Weight Heparin. Follow up testing in a hospital laboratory may be helpful if clinically indicated. INR results of > or = 5.0 should be verified using the standard venipuncture procedure. Reference Range 0.9-1.1 Moderate-intensity Warfarin Therapy 2.0-3.0 Higher-intensity Warfarin Therapy 3.0-4.0 PROTHROMBIN TIMEP 32.9(H) 10.5 - 13.1 sec 12/26/2024 12:19 PM INSIDE ACCOUNT EXECUTIVE [facility] Comment: Point of care fingerstick Prothrombin Time/INR results may vary from venous Prothrombin Time/INR methodologies. Any results exhibiting inconsistency with the patient's clinical status should be repeated using a venous Prothrombin Time/INR method. Blood BLOOD SPECIMEN / Unknown [facility] / Unknown 12/26/2024 12:08 PM INSIDE ACCOUNT EXECUTIVE 12/26/2024 12:08 PM INSIDE ACCOUNT EXECUTIVE us Lee rBoderick MD LABORATORY Final Result [facility] [address] [address], [place] [phone] [facility] [address] [place] [address], [place] [phone] * CT CHEST ABDOMEN PELVIS W (11/02/2024 11:58 AM CDT) Anatomical Region Laterality Modality Abdomen, Pelvis, AORTA, LIVER, SPLEEN, CHEST Computed Tomography 11/04/2024 10:3 0 AM CDT Impressions 11/04/2024 10:30 AM CDT Some progression of chronic pulmonary fibrosis and [...] MD @ 11/04/2024 10:30:03 AM (Electronically Signed) Narrative 11/04/2024 10:30 AM CDT For Patients: As a result [...] Bones: Right SI joint surgical ankylosis screw. Procedure Note Hitesh Thomas MD - 11/04/2024 For Patients: As a result of the Century Cures Act, medical imagingexams and procedure reports are released immediately into your electronicmedical record. You may view this report before your referring provider.If you have questions, please contact your health care provider. INDICATION: Unintended weight loss. TECHNIQUE: CT chest, abdomen and pelvis acquired with 100 mL Omnipaque 350 IVcontrast. COMPARISON: CT abdomen and pelvis [address] chest 28 September 2021. FINDINGS: Chest: Cardiovascular structures: Heart size is normal. Thoracic aorta and mainpulmonary artery are normal in caliber. Moderately prominent coronaryartery atherosclerosis. Mediastinum and howard: No mass or adenopathy. Punctate calcified chronicright hilar lymph nodes. Lungs: Bronchiectasis, linear reticular scarring and some volume loss leftupper lobe likely remote postinfectious or inflammatory. No some areas ofprogressing semiopaque in ground-glass opacities. No solid nodule. Chronicinterstitial lung disease pulmonary fibrosis at the periphery of the lungbases. Pleura and pericardium: Chronic bilateral pleural thickening andcalcification with some relative progression from comparison in boththickening and calcified plaques. Tiny loculated right dependent inferiorpleural effusion. Chest wall and axilla: No mass or adenopathy. Bones: Unremarkable for age. Abdomen and Pelvis: Liver: Unremarkable. Spleen: Unremarkable. Pancreas: Unremarkable. Gallbladder and bile ducts: Cholecystectomy. No biliary ductal dilatationor filling defect. Kidneys: Unremarkable. Adrenal glands: Unremarkable. GI tract: Scattered diverticula of the colon without inflammation. Nodilatation of small bowel. Vascular structures: Moderately prominent atherosclerotic calcificationwith some ectasia but no aneurysmal dilatation of aorta and iliacs. Lymph nodes: Unremarkable. Miscellaneous: Unremarkable. No free air or significant free fluid. Pelvic Organs: Suprapubic catheter. Brachytherapy seeds at the prostatebed. Bones: Right SI joint surgical ankylosis screw. IMPRESSION: Some progression of chronic pulmonary fibrosis and bilateral calcifiedpleural plaques which may be changes asbestosis and asbestos relatedpleural disease. Reported history of pleurodesis on the right.Postinfectious or postinflammatory ground-glass foci show some progressionin the right upper lobe. Suprapubic catheter and changes of brachytherapy treatment of theprostate. No evidence for metastatic disease. Changes of cholecystectomy. Mild colonic diverticulosis. Please note that all CT scans at this facility use dose modulation,iterative reconstruction, and/or weight-based dosing when appropriate toreduce radiation dose to as low as reasonably achievable. Dictated by Hitesh Thomas MD @ 11/04/2024 10:30:03 AM (Electronically Signed) us Lee Broderick MD CT Final Result * (ABNORMAL) CBC WITH AUTO DIFFERENTIAL (11/02/2024 11:24 AM CDT) WHITE BLOOD CELL COUNT 10.7 3.8 - 10.8 Thousand/ uL 11/03/2024 3:09 AM CDT [facility] RED BLOOD CELL COUNT 4.89 4.20 - 5.80 Million/u L 11/03/2024 3:09 AM CDT [facility] HEMOGLOBIN 15.4 13.2 - 17.1 g/dL 11/03/2024 3:09 AM CDT [facility] HEMATOCRIT 47.6 38.5 - 50.0 % 11/03/2024 3:09 AM CDT [facility] MCV 97.3 80.0 - 100.0 fL 11/03/2024 3:09 AM CDT [facility] MCH 31.5 27.0 - 33.0 pg 11/03/2024 3:09 AM CDT [facility] MCHC 32.4 32.0 - 36.0 g/dL 11/03/2024 3:09 AM CDT [facility] Comment: For adults, a slight decrease in the calculated MCHC value (in the range of 30 to 32 g/dL) is most likely not clinically significant; however, it should be interpreted with caution in correlation with other red cell parameters and the patient's clinical condition. RDW 11.9 11.0 - 15.0 % 11/03/2024 3:09 AM CDT [facility] PLATELET COUNT 184 140 - 400 Thousand/ uL 11/03/2024 3:09 AM CDT [facility] MPV 11.1 7.5 - 12.5 fL 11/03/2024 3:09 AM CDT [facility] NEUTROPHILS 79.1 % 11/03/2024 3:09 AM CDT [facility] LYMPHOCYTES 8.4 % 11/03/2024 3:09 AM CDT [facility] MONOCYTES 9.9 % 11/03/2024 3:09 AM CDT [facility] EOSINOPHILS 2.1 % 11/03/2024 3:09 AM CDT [facility] BASOPHILS 0.5 % 11/03/2024 3:09 AM CDT [facility] ABSOLUTE NEUTROPHILS 8464(H) 1500 - 7800 cells/uL 11/03/2024 3:09 AM CDT [facility] ABSOLUTE LYMPHOCYTES 899 850 - 3900 cells/uL 11/03/2024 3:09 AM CDT [facility] ABSOLUTE MONOCYTES 1059(H) 200 - 950 cells/uL 11/03/2024 3:09 AM CDT [facility] ABSOLUTE EOSINOPHILS 225 15 - 500 cells/uL 11/03/2024 3:09 AM CDT [facility] ABSOLUTE BASOPHILS 54 0 - 200 cells/uL 11/03/2024 3:09 AM CDT [facility] Blood BLOOD SPECIMEN / Unknown [facility] / Unknown 11/02/2024 11:24 AM CDT 11/02/2024 11:24 AM CDT us Lee Broderick MD HEMATOLOGY Final Result Performing Organization Address [facility]/ZIP Co de Phone Number [facility] [address] [address], [place] [phone] * POCT Creatinine (11/02/2024 11:24 AM CDT) POCT,CREATININ E, ISTAT 1.1 0.6 - 1.3 mg/dL 11/02/2024 11:32 AM CDT [facility] Blood BLOOD SPECIMEN / Unknown [facility] / Unknown 11/02/2024 11:24 AM CDT 11/02/2024 11:24 AM CDT us Lee Broderick MD CHEMISTRY Final Result [facility] [address] [address], [place] [phone] [facility] [address] [place] [address], [place] [phone] * (ABNORMAL) HEPATIC FUNCTION PANEL (11/02/2024 11:24 AM CDT) ALBUMIN 3.9 3.6 - 5.1 g/dL 11/03/2024 4:18 AM CDT [facility] PROTEIN, TOTAL 6.8 6.1 - 8.1 g/dL 11/03/2024 4:18 AM CDT [facility] BILIRUBIN, TOTAL 1.6(H) 0.2 - 1.2 mg/dL 11/03/2024 4:18 AM CDT [facility] BILIRUBIN, DIRECT 0.3(H) < OR = 0.2 mg/dL 11/03/2024 4:18 AM CDT [facility] BILIRUBIN, INDIRECT 1.3(H) 0.2 - 1.2 mg/dL (calc) 11/03/2024 4:18 AM CDT [facility] ALKALINE PHOSPHATASE 108 35 - 144 U/L 11/03/2024 4:18 AM CDT [facility] ALT 21 9 - 46 U/L 11/03/2024 4:18 AM CDT [facility] AST 28 10 - 35 U/L 11/03/2024 4:18 AM CDT [facility] GLOBULIN 2.9 1.9 - 3.7 g/dL (calc) 11/03/2024 4:18 AM CDT [facility] ALBUMIN/GLOBULIN RATIO 1.3 1.0 - 2.5 (calc) 11/03/2024 4:18 AM CDT [facility] Blood BLOOD SPECIMEN / Unknown [facility] / Unknown 11/02/2024 11:24 AM CDT 11/02/2024 11:24 AM CDT Lee Broderick MD CHEMISTRY Final Result [facility] [address] [place] [address], [place] [phone] * TSH WITH REFLEX (10/02/2024 3:10 PM CDT) Pathologist [facility] TSH W/REFLEX TO FT4 1.13 0.40 - 4.50 mIU/L 10/03/2024 4:03 AM CDT [facility] Blood BLOOD SPECIMEN / Unknown [facility] / Unknown 10/02/2024 3:10 PM CDT 10/02/2024 3:10 PM CDT us Lee Broderick MD CHEMISTRY Final Result [facility] [address] [place] [address], [place] [phone] * (ABNORMAL) LIPID PANEL W REFLEX MEASURED LDL (10/02/2024 3:10 PM CDT) CHOLESTEROL, TOTAL 98 <200 mg/dL 10/03/2024 3:24 AM CDT [facility] TRIGLYCERIDES 148 <150 mg/dL 10/03/2024 3:24 AM CDT [facility] HDL CHOLESTEROL 37(L) > OR = 40 mg/dL 10/03/2024 3:24 AM CDT [facility] NON HDL CHOLESTEROL 61 <130 mg/dL (calc) 10/03/2024 3:24 AM CDT [facility] Comment: For patients with diabetes plus 1 major ASCVD risk factor, treating to a non-HDL-C goal of <100 mg/dL (LDL-C of <70 mg/dL) is considered a therapeutic option. CHOL/HDLC RATIO 2.6 <5.0 (calc) 10/03/2024 3:24 AM CDT [facility] LDL-CHOLESTEROL 38 mg/dL (calc) 10/03/2024 3:24 AM CDT [facility] Comment: Reference range: <100 Desirable range <100 mg/dL for primary prevention; <70 mg/dL for patients with CHD or diabetic patients with > or = 2 CHD risk factors. LDL-C is now calculated using the Vini-Duong calculation, which is a validated novel method providing better accuracy than the Friedewald equation in the estimation of LDL-C. Vini SS et al. VISHAL. 2013;310(19): 7912-2944 (http://education.[employer].AGC/faq/WTL380) Blood BLOOD SPECIMEN / Unknown [facility] / Unknown 10/02/2024 3:10 PM CDT 10/02/2024 3:10 PM CDT us Lee Broderick MD CHEMISTRY Final Result Performing Organization Address [facility]/ZIP Co de Phone Number [facility] [address] [address], [place] [phone] * PSA TOTAL (10/02/2024 3:10 PM CDT) Pathologist [facility] PSA, TOTAL 0.05 < OR = 4.00 ng/mL 10/03/2024 4:03 AM CDT [facility] Comment: The total PSA value from this assay system is standardized against the WHO standard. The test result will be approximately 20% lower when compared to the equimolar-standardized total PSA (Rebecca [place]). Comparison of serial PSA results should be interpreted with this fact in mind. This test was performed using the Siemens chemiluminescent method. Values obtained from different assay methods cannot be used interchangeably. PSA levels, regardless of value, should not be interpreted as absolute evidence of the presence or absence of disease. Blood BLOOD SPECIMEN / Unknown [facility] / Unknown 10/02/2024 3:10 PM CDT 10/02/2024 3:10 PM CDT Lee Broderick MD CHEMISTRY Final Result Performing Organization Address [facility] Co de Phone Number [facility] [address] [address], [place] [phone] * (ABNORMAL) BASIC METABOLIC PANEL (10/02/2024 3:10 PM CDT) Pathologist [facility] SODIUM 142 135 - 146 mmol/L 10/03/2024 3:24 AM CDT [facility] POTASSIUM 3.7 3.5 - 5.3 mmol/L 10/03/2024 3:24 AM CDT [facility] CARBON DIOXIDE 35(H) 20 - 32 mmol/L 10/03/2024 3:24 AM CDT [facility] GLUCOSE 85 65 - 99 mg/dL 10/03/2024 3:24 AM CDT [facility] Comment: Fasting reference interval CALCIUM 9.1 8.6 - 10.3 mg/dL 10/03/2024 3:24 AM CDT [facility] CREATININE 0.87 0.70 - 1.22 mg/dL 10/03/2024 3:24 AM CDT [facility] BUN/CREATININE RATIO SEE NOTE: 6 - 22 (calc) 10/03/2024 3:24 AM CDT [facility] Comment: Not Reported: BUN and Creatinine are within reference range. EGFR 83 > OR = 60 mL/min/1. 73m2 10/03/2024 3:24 AM CDT [facility] UREA NITROGEN (BUN) 22 7 - 25 mg/dL 10/03/2024 3:24 AM CDT [facility] ELECTROLYTE BALANCE 6(L) 7 - 17 mmol/L (calc) 10/03/2024 3:24 AM CDT [facility] CHLORIDE 101 98 - 110 mmol/L 10/03/2024 3:24 AM CDT [facility] Blood BLOOD SPECIMEN / Unknown [facility] / Unknown 10/02/2024 3:10 PM CDT 10/02/2024 3:10 PM CDT Lee Broderick MD CHEMISTRY Final Result [facility] [address] [place] [address], from Last 3 Months Insurance MEDICARE PART B HB ONLY MEDICARE PART A HB ONLY [employer] BLUE HB ONLY [employer] BLUE MR PB ONLY Advance Directives Documents on File Type Date Recorded 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
--- OUTSIDE RECORDS SUMMARY | 2024-12-31 17:40 | XMS_ITS | Encounter Summary ---
Author Organization [facility] Address [address] [place] [address] Care Team Providers Care Student Services Dean Name Role Phone Elsewhere, Pcp Primary Care Provider Unavailabl e Encounter Details Date Type Department Care Team (Late st Contact Info) Description 12/03/2024 Orders Only Division of Pulmonary Medicine in [place], [place] [address] [place] [phone] Nathalie Hwang M.D. [address] [place] [address] Loss Weight (Primary Dx) Social History Tobacco Use Types Packs/Day Years Used Date Smoking Tobacco: Former Cigarettes 1 25 0 02/08/1956 - 02/07/1981 Passive Smoke Exposure: Past Smokeless Tobacco: Never Chew Quit: 03/03/1981 Passive Exposure Comments:No t for Years Alcohol Use Standard Drinks/Week Comments Yes 7 (1 standard drink = 0.6 oz pur e alcohol) [facility] Utilities Answer Date Recorded In the past 12 months has [employer] gas, oil, or water [employer] threatened to shut off services in your [...] your living situation today? I have a [facility] place to live 07/27/2024 Education Answer Date Recorded What is the highest level of school you have completed or the highest degree you have received? 12th grade 06/09/2022 Sex and Gender Information Value Date Recorded Sex Assigned at Male 01/03/2018 1:26 PM [employer] Legal Sex Male 4:09 AM [employer] Gender Identity Not on file Sexual Orientation Straight 01/03/2018 1: 26 PM [employer] documented as of this encounter Plan of Treatment Upcoming Encounters Date Type Department Care Team (Late st Contact Info) Description 01/08/2025 11:30 AM [employer] Nurse Only Department of Urology in [place], [place] [address] [phone] 02/08/2025 11:00 AM [employer] Appointment Department of Radiology in [place], [place] [address] [phone] Kennedi Dan APRN, C.N.P. [address] [phone] 02/08/2025 12:00 PM [employer] Appointment Department of Radiology in [place], [place] [address] [place] [phone] Kennedi Dan APRN, C.N.P. [address] [place] [phone] 02/12/2025 11:00 AM [employer] Office Visit Department of Urology in [place], [place] [address] [place] [address] Kennedi Dan APRN, C.N.P. [address] [place] [phone] documented as of this encounter Results * Interpretation of Outside [...] be beneficial to ensure stability orresolution. Nathalie MARTIN CT PROCEDURES Final Re sult * Interpretation [...] AND OR PELVIS IV contrast 11/02/2024. COMPARISON: [place] CT urogram 09/09/2022. FINDINGS: Radiation seeds in [...] OUTSIDE CT ABDOMEN AND OR PELVIS IV [id number]. COMPARISON: [place] CT urogram 09/09/2022. FINDINGS: Radiation seeds in [...] for metastaticdisease in the abdomen or pelvis. us Nathalie Hwang M.D. [place] CT PROCEDURES Final Re sult documented in this encounter Visit Diagnoses Diagnosis Loss Weight- Primary Loss Weight Loss Weight documented in this encounter Care Teams Student Services Dean Relationship Specialty Start Date End Date Elsewhere, Pcp PCP - General Family Medicine 06/08/22 documented as of this encounter
--- OUTSIDE RECORDS SUMMARY | 2024-12-31 17:40 | XMS_ITS | Encounter Summary ---
Author Organization [facility] Address [address] [place] [address] Care Team Providers Care Balance Truing Inspector Name Role Phone Elsewhere, Pcp Primary Care Provider Unavailabl e Reason for Referral * Outpatient (Routine) - Closed Specialty Diagnoses / Procedures Referred By Alexander ridley Referred To Contact Pulmonary Medicine Diagnoses Restrictive Lung Disease Dyspnea On Exertion Abel Gomez M.D. Phone: tel: fax: [facility] Referral ID Status Reason Start Date Expiration Date Visits Re quested Visits Authorized [id number] Closed 11/09/2017 11/09/2018 1 1 Encounter Details Date Type Department Care Team (Late st Contact Info) Description 11/09/[address] [facility] [address] [place] [address] Abel Gomez M.D. 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 Gender Identity Not on file Sexual Orientation Straight 01/03/2018 1: 26 PM TYPEWRITER ASSEMBLY AND PARTS INSPECTOR documented as of this encounter Plan of Treatment Upcoming Encounters Date Type Department Care Team (Late st Contact Info) Description 01/08/2025 11:30 AM TYPEWRITER ASSEMBLY AND PARTS INSPECTOR Nurse Only Department of Urology in [place], [place] [address] [place] [phone] 02/08/2025 11:00 AM TYPEWRITER ASSEMBLY AND PARTS INSPECTOR Appointment Department of Radiology in [place], [place] [address] [place] [phone] Kennedi Dan APRN, C.N.P. [address] [phone] 02/08/2025 12:00 PM TYPEWRITER ASSEMBLY AND PARTS INSPECTOR Appointment Department of Radiology in [place], [place] [address] [place] [phone] Kennedi Dan APRN, C.N.P. [address] [phone] 02/12/2025 11:00 AM TYPEWRITER ASSEMBLY AND PARTS INSPECTOR Office Visit Department of Urology in [address] [phone] Kennedi Dan APRN, C.N.P. [address] [place] [phone] Scheduled Referrals Name Type Priority Associated Diagnoses Orde r Schedule Pulmonary Medicine Referral Outpatient Referral Routine Restrictive Lung Disease Dyspnea On Exertion Expected: 11/09/2017 (Approximate), Expires: 11/09/2020 documented as of this encounter Visit Diagnoses Diagnosis Restrictive Lung Disease- Primary Dyspnea On Exertion documented in this encounter Care Teams Balance Truing Inspector Relationship Specialty Start Date End Date Elsewhere, Pcp PCP - General Family Medicine 06/08/22 documented as of this encounter
--- NOTE | 2024-12-31 18:19 | ED.HEATRA ---
HPI - Head Injury General Date Seen: 12/31/24 Chief complaint: Head Injury/Pain Stated complaint: CT scan found bleeding in the brain Time Seen by Provider: 12/31/24 17:39 Source: patient, EMS, RN notes reviewed and old records reviewed Mode of arrival: ambulatory Limitations: no limitations History of Present Illness HPI Narrative: Patient is an 89-year-old gentleman who was getting a preop physical for colonoscopy when he told his primary care physician that he was having some headaches, he has a history of being on Coumadin, for atrial fibrillation. It was discovered on CT scanning that he had acute on chronic subdurals. And they sent him over by private vehicle to the emergency room. He tells me he really is asymptomatic as I see him in stabilization room 1, he can remember my name, and where I was born after with previous conversations. Denies any numbness tingling or weakness, he has no nausea is not been vomiting, he tells me he has not fallen his head, over the past 3-4 months, in fact he tells me not fallen at all. Is only complaint is that he feels that his eyes hurt. Some mild headaches, which I believe provoked his primary care physician, to do the CT. CT scan read from the clinic show a right frontoparietal acute on chronic subdural hematoma measuring up to 2 cm with mass effect on the underlying parent time a left frontoparietal low density subdural fluid collections consistent with chronic left subdural hematoma, with 4 mm right to left midline shift, and partial effacement of the right lateral ventricle. INR, basic metabolic profile, CBC and proBNP. was done in the clinic but that will be done in [facility] will not have those results today. Past medical history of bilateral spontaneous pneumothorax, coronary disease, with previous stenting in 2019, diverticulitis, gastritis, heart failure with preserved ejection fraction, history DVT, paroxysmal AFib, hypertension, inguinal hernia repair. Past surgeries: Thoracic appy with pleurodesis, appendectomy, colonoscopy done, EGD, lap cholecystectomy, tonsillectomy, brachytherapy for prostate Other Injuries: none Context: on warfarin Associated symptoms: denies other symptoms Related Data Home Medications ?Medication ?Instructions ?Recorded ?Confirmed atorvastatin 40 mg tablet 40 mg PO HS 08/28/21 10/03/23 triamterene 37.5 1 cap PO DAILY 08/28/21 10/03/23 mg-hydrochlorothiazide 25 mg capsule warfarin 2 mg tablet 4 - 6 mg PO DAILY 08/28/21 10/03/23 losartan 50 mg tablet 50 mg PO DAILY 10/03/23 10/03/23 metoprolol succinate 25 mg 25 mg PO DAILY 10/03/23 10/03/23 tablet,extended release 24 hr nitroglycerin 0.4 mg sublingual 0.4 mg sublingual angina 10/03/23 tablet Previous Rx's ?Medication ?Instructions ?Recorded amoxicillin 875 mg-potassium 1 tab PO BID #14 tabs 10/04/23 clavulanate 125 mg tablet Allergies Allergy/AdvReac Type Severity Reaction Status Date / Time codeine Allergy Mild Verified 05/11/22 09:09 Review of Systems Status of ROS: Reports: 10 or more systems reviewed and unremarkable except as noted in History and below [facility] Medical History Suprapubic catheter ?Z93.59 - Other cystostomy status (ICD-10) ISAAC (obstructive sleep apnea) ?G47.33 - Obstructive sleep apnea (adult) (pediatric) (ICD-10) History of vertigo (09/26/06) ?Z87.898 - Personal history of other specified conditions (ICD-10) History of poliomyelitis (02/06/09) ?Z86.12 - Personal history of poliomyelitis (ICD-10) History of pneumothorax (02/06/09) ?Z87.09 - Personal history of other diseases of the respiratory system (ICD-10) History of malignant neoplasm of skin (10/15/09) ?Z85.828 - Personal history of other malignant neoplasm of skin (ICD-10) History of diverticulitis (10/16/07) ?Z87.19 - Personal history of other diseases of the digestive system (ICD-10) History of deep venous thrombosis (06/05/12) ?Z86.718 - Personal history of other venous thrombosis and embolism (ICD-10) History of colonic polyps (09/2019) ?Z86.010 - Personal history of colonic polyps (ICD-10) Aspiration, chronic pulmonary ?T17.908A - Unspecified foreign body in respiratory tract, part unspecified causing other injury, initial encounter (ICD-10) Sublingual abscess ?K12.2 - Cellulitis and abscess of mouth (ICD-10) Trouble swallowing ?R13.10 - Dysphagia, unspecified (ICD-10) Anticoagulant long-term use ?Z79.01 - terminal operator (current) use of anticoagulants (ICD-10) Neck abscess ?L02.11 - Cutaneous abscess of neck (ICD-10) Pneumothorax ?J93.9 - Pneumothorax, unspecified (ICD-10) COPD (chronic obstructive pulmonary disease) ?J44.9 - Chronic obstructive pulmonary disease, unspecified (ICD-10) Asbestosis ?J61 - Pneumoconiosis due to asbestos and other mineral fibers (ICD-10) History of prostate cancer ?Z85.46 - Personal history of malignant neoplasm of prostate (ICD-10) Insomnia ?G47.00 - Insomnia, unspecified (ICD-10) Paroxysmal atrial fibrillation ?I48.0 - Paroxysmal atrial fibrillation (ICD-10) Congestive heart failure ?I50.9 - Heart failure, unspecified (ICD-10) Hyperlipidemia ?E78.5 - Hyperlipidemia, unspecified (ICD-10) 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 - Presbycusis, unspecified ear (ICD-10) Hypertension ?I10 - Essential (primary) hypertension (ICD-10) ASCVD (arteriosclerotic cardiovascular disease) ?I25.10 - Atherosclerotic heart disease of [place] coronary artery without angina pectoris (ICD-10) Surgical History History of right inguinal hernia repair (02/06/09) ?Z98.890 - Other specified postprocedural states (ICD-10) ?Z87.19 - Personal history of other diseases of the digestive system (ICD-10) History of right coronary artery stent placement (03/06/18) ?Z95.5 - Presence of coronary angioplasty implant and graft (ICD-10) History of lumbar discectomy (06/14/12) ?Z98.890 - Other specified postprocedural states (ICD-10) History of colonoscopy (09/18/19) ?Z98.890 - Other specified postprocedural states (ICD-10) History of colonoscopy ?Z98.890 - Other specified postprocedural states (ICD-10) History of appendectomy ?Z90.49 - Acquired absence of other specified parts of digestive tract (ICD-10) History of laparoscopic cholecystectomy ?Z90.49 - Acquired absence of other specified parts of digestive tract (ICD-10) Hx of CABG ?Z95.1 - Presence of aortocoronary bypass graft (ICD-10) Social History Narrative: , six kids, retired, former smoker What is your current living situation?: I presently have a place to live Problems where you live: no known problems Problems where you live details: NA In the past 12 months, utilities in danger of being shut off: no In past 12 months, lack of transportation kept you from medical appts, meetings, work, or getting things needed for daily living: no In the past 12 mos, have been you worried that your food would run out before you had money to buy more?: never true In the past 12 mos, the food you bought just didn't last and you didn't have money to buy more?: never true Smoking Status: Never smoker Do you use any of these nicotine containing products: None Second hand tobacco smoke exposure: No How often do you have a drink containing alcohol: 4 or more times a week Alcohol type: beer Alcohol type details: 1 beer/day How many standard drinks containing alcohol do you have on a typical day: 1 or 2 How often do you have six or more drinks on one occasion: Never AUDIT-C Alcohol total score: 4 Non-prescribed substance use: denies use Caffeine: No How often does anyone, including family, friends and others, physically hurt you: never How often does anyone, including family, friends and others, insult or talk down to you: never How often does anyone, including family, friends and others, threaten you with harm: never How often does anyone, including family, friends and others, scream or curse at you: never service: Yes Exam Narrative: Exam Narrative: On examination in stabilization room 1 he is in no apparent distress he is pleasant and alert. Pupils equal round reactive to light, months of the year reverse is normal, TMs are normal neck is supple full range of motion no evidence of trauma over the head or neck, fundi appear normal with this examiner. Chest is good air entry bilaterally no wheezing crackles noted heart sounds clicks murmurs or gallops and regular rhythm, abdomen is soft there is no guarding no organomegaly bowel sounds are normal no CVA tenderness moves all extremities independently and well, both upper lower extremities normal proximal and distal, with no evidence of any rashes, Const: Vital Signs, click to edit/add: Vital Signs - 24 hr 12/31/24 17:42 12/31/24 17:58 12/31/24 17:58 Temperature 98.2 F Pulse Rate 84 Pulse Rate [Pulse Oximeter] 74 Respiratory Rate 20 11 L Blood Pressure Blood Pressure [Ri ght Upper Arm] 103/53 L Pulse Oximetry 86 L 95 Oxygen Delivery Me thod Room Air Room Air 12/31/24 18:00 12/31/24 18:02 12/31/24 18:15 Temperature Pulse Rate 77 83 Pulse Rate [Pulse Oximeter] Respiratory Rate 14 13 24 Blood Pressure 113/61 Blood Pressure [Ri ght Upper Arm] Pulse Oximetry 95 91 93 Oxygen Delivery Me thod 12/31/24 18:16 12/31/24 18:17 12/31/24 18:30 Temperature Pulse Rate 85 79 84 Pulse Rate [Pulse Oximeter] Respiratory Rate 22 25 H 15 Blood Pressure 111/56 L Blood Pressure [Ri ght Upper Arm] Pulse Oximetry 93 93 95 Oxygen Delivery Me thod 12/31/24 18:31 12/31/24 18:45 12/31/24 18:47 Temperature Pulse Rate 87 83 85 Pulse Rate [Pulse Oximeter] Respiratory Rate 12 11 L 9 L Blood Pressure 117/69 113/57 L Blood Pressure [Ri ght Upper Arm] Pulse Oximetry 96 93 93 Oxygen Delivery Me thod 12/31/24 19:00 12/31/24 19:01 12/31/24 19:15 Temperature Pulse Rate Pulse Rate [Pulse Oximeter] Respiratory Rate 21 31 H 12 Blood Pressure 107/56 L Blood Pressure [Ri ght Upper Arm] Pulse Oximetry Oxygen Delivery Me thod 12/31/24 19:17 Temperature Pulse Rate 76 Pulse Rate [Pulse Oximeter] Respiratory Rate 18 Blood Pressure 107/58 L Blood Pressure [Ri ght Upper Arm] Pulse Oximetry 95 Oxygen Delivery Me thod Documenting provider has reviewed patient's vital signs: yes Course Course ED Course: I spoke to (ICU) and (neurosurgery) I suggested transfer to ICU at [facility]. Patient is in agreement with this. We will may endeavor to do this. Patient guarded but stable at this time. Vital Signs Vital signs: Initial Vital Signs Temperature 98.2 F 12/31/24 17:42 Temperature Source Temporal Artery Scan 12/31/24 17:42 Pulse Rate 74 12/31/24 17:42 Respiratory Rate 20 12/31/24 17:42 Blood Pressure 103/53 L 12/31/24 17:42 Blood Pressure Mean 69 L 12/31/24 17:42 Blood Pressure Position Sitting 12/31/24 17:42 Pulse Oximetry 86 L 12/31/24 17:42 Oxygen Delivery Method Room Air 12/31/24 17:42 Vital Signs Temperature 98.2 F 12/31/24 17:42 Pulse Rate 74 12/31/24 17:42 Respiratory Rate 20 12/31/24 17:42 Blood Pressure 103/53 L 12/31/24 17:42 Pulse Oximetry 86 L 12/31/24 17:42 Oxygen Delivery Method Room Air 12/31/24 17:42 Temperature 98.2 F 12/31/24 17:42 Pulse Rate 76 12/31/24 19:17 Respiratory Rate 18 12/31/24 19:17 Blood Pressure 107/58 L 12/31/24 19:17 Pulse Oximetry 95 12/31/24 19:17 Oxygen Delivery Method Room Air 12/31/24 17:58 MDM - Head Injury MDM Narrative Medical decision making narrative: Life-threatening differential diagnosis is considered include: Subarachnoid hemorrhage, subdural hemorrhage, epidural hemorrhage. Other differential diagnosis considered include concussion, closed head injury, or neck fracture. I will order blood test, including an INR, he will need to be reversed, and then likely transfer to [facility] for neurosurgical consultation and possible intervention. He is guarded but stable present time. Medical Records Attestation: I reviewed the patient's medical records. Medical records narrative: Reviewed his epic chart. Lab Data Attestation: I reviewed the patient's lab results. Labs: Lab Results 12/31/24 Range/Units 17:55 WBC 10.42 (4.50-11.00) K/uL RBC 4.61 (4.30-5.90) m/uL Hgb 14.5 (13.5-17.5) gm/dL Hct 44.2 (37.0-53.0) % MCV 96 (80-100) fL MCH 32 (26-34) pg MCHC 33 (32-36) gm/dL RDW Coeff of Betty 12.2 (11.5-15.5) % Plt Count 193 (140-440) K/uL Neut % (Auto) 68.0 (42.0-72.0) % Lymph % (Auto) 17.8 L (20-44) % [place] % (Auto) 12.1 H (0.0-11.0) % Eos % (Auto) 1.5 (0.0-7.0) % Baso % (Auto) 0.3 (0.0-3.0) % Neut # (Auto) 7.09 H (1.7-7.0) K/uL Lymph # (Auto) 1.90 (0.90-2.90) K/uL [place] # (Auto) 1.30 H (0.00-0.90) K/UL Eos # (Auto) 0.16 (0.00-0.50) K/uL Baso # (Auto) 0.03 (0.00-0.30) K/uL Abs Immat Gran (auto) 0.03 (0.00-0.30) K/uL Imm/Tot Granulo (auto) 0.3 % INR 2.02 H (0.91-1.10) APTT 37 H (23-33) Seconds Sodium 138 (135-149) mmol/L Potassium 3.8 (3.6-5.1) mmol/L Chloride 95 L (96-114) mmol/L Carbon Dioxide 33 H (20-32) mmol/L Anion Gap 10 (7-15) mEq/L BUN 31 H (7-30) mg/dL Creatinine 1.0 (0.5-1.5) mg/dL Estimated GFR 72 ml/min Glucose 100 (60-115) mg/dL Calcium 9.2 (8.4-10.6) mg/dL ECG Data Attestation: I personally reviewed and interpreted this ECG as follows: ECG interpretation date: 12/31/24 Interpretation: EKG shows sinus rhythm with occasional sinus arrhythmia, ventricular rate is 80, ND interval 156, QRS 82 milliseconds QT is 366. Discharge Plan Discharge Clinical Impression: Acute on chronic intracranial subdural hematoma, Anticoagulant long-term use Discharge Location: [facility] Condition: Guarded Prescriptions: No Action losartan 50 mg tablet 50 mg PO DAILY metoprolol succinate 25 mg tablet extended release 24 hr 25 mg PO DAILY nitroglycerin 0.4 mg tablet, sublingual 0.4 mg sublingual amoxicillin-pot clavulanate 875-125 mg tablet 1 tab PO BID Qty: 14 0RF atorvastatin 40 mg tablet 40 mg PO HS triamterene-hydrochlorothiazid 37.5-25 mg capsule 1 cap PO DAILY Patient Comments: TAKE 1 CAPSULE BY MOUTH EVERY MORNING warfarin 2 mg tablet 4 - 6 mg PO DAILY Rx Instructions: 6 MG ON TUESDAY AND 4 MG OTHER DAYS OR DIRECTED Follow Up/Referrals: Lee Broderick MD [Primary Care Provider, Family Practice]
[2024-12-31 18:21] LABS: Hematocrit* 44.2 % (37.0-53.0); Hemoglobin* 14.5 gm/dL (13.5-17.5); Immature Granulocytes Abs Auto 0.03 K/uL (0.00-0.30); Immature Granulocytes Pct Auto 0.3 %; Mean Corpuscular HGB Conc 33 gm/dL (32-36); Mean Corpuscular Hemoglobin 32 pg (26-34); Mean Corpuscular Volume 96 fL (80-100); RDW Coefficient of Variation % 12.2 % (11.5-15.5); Red Blood Count* 4.61 m/uL (4.30-5.90); White Blood Count* 10.42 K/uL (4.50-11.00)
[2024-12-31 18:22] LABS: INR 2.02 (0.91-1.10); Prothrombin Time 24.0 Seconds
[2024-12-31 18:23] LABS: Chloride* 95 mmol/L (96-114); Potassium* 3.8 mmol/L (3.6-5.1); Sodium* 138 mmol/L (135-149)
[2024-12-31 18:24] LABS: Lymphocytes Absolute Auto 1.90 K/uL (0.90-2.90); Slide Review Reflex No
[2024-12-31 18:26] LABS: Anion Gap 10 mEq/L (7-15); Blood Urea Nitrogen* 31 mg/dL (7-30); Calcium* 9.2 mg/dL (8.4-10.6); Carbon Dioxide* 33 mmol/L (20-32); Creatinine* 1.0 mg/dL (0.5-1.5); Estimated Glomerular Filt Rate 72 ml/min; Glucose* 100 mg/dL (60-115)
[2024-12-31] MEDS: PHYTONADIONE (VIT K1) 10 MG in 0.9 % SODIUM CHLORIDE 50 ml 50 ML 100 MG IVPB (19:31)
--- OUTSIDE RECORDS SUMMARY | 2025-01-01 10:11 | XMS_ITS | Encounter Summary ---
Author Organization [facility] Address [address] [place] [address] Care Team Providers Care Tape Edge Machine Operator Name Role Phone Elsewhere, Pcp Primary Care Provider Unavailabl e Encounter Details Date Type Department Care Team (Late st Contact Info) Description 11/27/2024 Clinical Communication Division of Pulmonary Medicine in [place], [place] [address] [place] [phone] Nathalie Hwang M.D. [address] [place] [phone] Social History Tobacco Use Types Packs/Day Years Used Date Smoking Tobacco: Former Cigarettes 1 25 0 02/08/1956 - 02/07/1981 Passive Smoke Exposure: Past Smokeless Tobacco: Never Chew Quit: 03/03/1981 Passive Exposure Comments:No t for Years Alcohol Use Standard Drinks/Week Comments Yes 7 (1 standard drink = 0.6 oz pur e alcohol) [facility] Utilities Answer Date Recorded In the past 12 months has [facility] [employer], gas, oil, or water [employer] threatened to shut off services in your [...] living situation today? I have a [facility] place to live 07/27/2024 Education Answer Date Recorded What is the highest level of school you have completed or the highest degree you have received? 12th grade 06/09/2022 Sex and Gender Information Value Date Recorded Sex Assigned at Male 01/03/2018 1:26 PM INFORMATION SYSTEMS PROFESSOR Legal Sex Male 4:09 AM INFORMATION SYSTEMS PROFESSOR Gender Identity Not on file Sexual Orientation Straight 01/03/2018 1: 26 PM INFORMATION SYSTEMS PROFESSOR documented as of this encounter Plan of Treatment Upcoming Encounters Date Type Department Care Team (Late st Contact Info) Description 01/08/2025 11:30 AM INFORMATION SYSTEMS PROFESSOR Nurse Only Department of Urology in [place], [place] [address] [phone] 02/08/2025 11:00 AM INFORMATION SYSTEMS PROFESSOR Appointment Department of Radiology in [place], [place] [address] [phone] Kennedi Dan APRN, C.N.P. [address] [phone] 02/08/2025 12:00 PM INFORMATION SYSTEMS PROFESSOR Appointment Department of Radiology in [place], [place] [address] [phone] Kennedi Dan APRN, C.N.P. [address] [phone] 02/12/2025 11:00 AM INFORMATION SYSTEMS PROFESSOR Office Visit Department of Urology in [place], [place] [address] [place] [phone] Kennedi Dan APRN, C.N.P. [address] [phone] documented as of this encounter Visit Diagnoses Not on filedocumented in this encounter Care Teams Tape Edge Machine Operator Relationship Specialty Start Date End Date Elsewhere, Pcp PCP - General Family Medicine 06/08/22 documented as of this encounter
--- OUTSIDE RECORDS SUMMARY | 2025-01-01 10:11 | XMS_ITS | Encounter Summary ---
Author Organization [facility] Address [address] [place] [address] Care Team Providers Care Enrichment Director Name Role Phone Elsewhere, Pcp Primary Care Provider Unavailabl e Encounter Details Date Type Department Care Team (Late st Contact Info) Description 12/03/2024 Orders Only Division of Pulmonary Medicine in [place], [place] [address] [place] [phone] Nathalie Hwang M.D. [address] [place] [phone] Loss Weight (Primary Dx) Social History Tobacco Use Types Packs/Day Years Used Date Smoking Tobacco: Former Cigarettes 1 25 0 02/08/1956 - 02/07/1981 Passive Smoke Exposure: Past Smokeless Tobacco: Never Chew Quit: 03/03/1981 Passive Exposure Comments:No t for Years Alcohol Use Standard Drinks/Week Comments Yes 7 (1 standard drink = 0.6 oz pur e alcohol) [facility] Utilities Answer Date Recorded In the past 12 months has [facility] [employer] gas, oil, or water [employer] threatened to shut off services in your [...] have a [facility] place to live 07/27/2024 Education Answer Date Recorded What is the highest level of school you have completed or the highest degree you have received? 12th grade 06/09/2022 Sex and Gender Information Value Date Recorded Sex Assigned at Male 01/03/2018 1:26 PM BLUEPRINTING AND PHOTOCOPY SUPERVISOR Legal Sex Male 4:09 AM BLUEPRINTING AND PHOTOCOPY SUPERVISOR Gender Identity Not on file Sexual Orientation Straight 01/03/2018 1: 26 PM BLUEPRINTING AND PHOTOCOPY SUPERVISOR documented as of this encounter Plan of Treatment Upcoming Encounters Date Type Department Care Team (Late st Contact Info) Description 01/08/2025 11:30 AM BLUEPRINTING AND PHOTOCOPY SUPERVISOR Nurse Only Department of Urology in [place], [place] [address] [phone] 02/08/2025 11:00 AM BLUEPRINTING AND PHOTOCOPY SUPERVISOR Appointment Department of Radiology in [place], [place] [address] [phone] Kennedi Dan APRN, C.N.P. [address] [phone] 02/08/2025 12:00 PM BLUEPRINTING AND PHOTOCOPY SUPERVISOR Appointment Department of Radiology in [place], [place] [address] [place] [phone] Kennedi Dan APRN, C.N.P. [address] [place] [phone] 02/12/2025 11:00 AM BLUEPRINTING AND PHOTOCOPY SUPERVISOR Office Visit Department of Urology in [place], [place] [address] [place] [phone] Kennedi Dan APRN, C.N.P. [address] [place] [phone] documented as of this encounter [...] AND OR PELVIS IV contrast 11/02/2024. COMPARISON: [place] CT urogram 09/09/2022. FINDINGS: Radiation seeds in [...] OUTSIDE CT ABDOMEN AND OR PELVIS IV andmewgc14/26/2025. COMPARISON: [place] CT urogram 09/09/2022. FINDINGS: Radiation seeds in [...] Weight documented in this encounter Care Teams Enrichment Director Relationship Specialty Start Date End Date Elsewhere, Pcp PCP - General Family Medicine 06/08/22 documented as of this encounter
--- OUTSIDE RECORDS SUMMARY | 2025-01-01 10:11 | XMS_ITS | Clinical Summary ---
Author Organization [facility] Address [address] [place] [address] Care Team Providers Care Line Construction Supervisor Name Role Phone Elsewhere, Pcp Primary Care Provider Unavailabl e Source Comments Patient records contain information from all sites at [facility]. For routine questions regarding patient records, call [phone] during business hours, M-F 8:00 AM - 5:00 PM Central Time. 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 Nurse Visit (catheter exchange) 12/06/2024 12:35 PM CDT - 12/06/2024 11:59 PM CDT Hospital Encounter Department of Radiology in [address] [phone] Nathalie Hwang M.D. Loss Weight Discharge Disposition: Home or Self Care 12/04/2024 7:26 AM CDT - 12/04/2024 11:59 PM CDT Hospital Encounter Division of Pulmonary Medicine in [place], [place] [address] [place] [address] Nathalie Hwang M.D. Loss Weight (Primary Dx); Restrictive Lung Disease; Other Pneumothorax Discharge Disposition: Home or Self Care 12/03/2024 1:00 PM CDT Ancillary Procedure Department of Radiology in [place], [place] [address] [place] [address] Nathalie Hwang M.D. Loss Weight 12/03/2024 12:55 PM CDT Ancillary Procedure Department of Radiology in [place], [place] [address] [place] [address] Nathalie Hwang M.D. Loss Weight 12/03/2024 Orders Only Division of Pulmonary Medicine in [place], [place] [address] [place] [address] Nathalie Hwang M.D. Loss Weight (Primary Dx) 11/27/2024 Clinical Communication Division of Pulmonary Medicine in [place], [place] [address] [place] [address] Nathalie Hwang M.D. 11/07/2024 1:30 PM CDT Nurse Only Department of Urology in [place], [place] [address], [place] [address] Sophia Gaspar, R.N. Nurse Visit 10/10/2024 11:30 AM CDT Nurse Only Department of Urology in [place], [place] [address] [place] [address] Sophia Gaspar, R.N. Nurse Visit from Last [...] drink = 0.6 oz pur e alcohol) [facility] Utilities Answer Date Recorded In the past 12 months has e [employer], gas, oil, or water [employer] threatened to shut off services in your [...] your living situation today? I have a [facility] place to live 07/27/2024 Education Answer Date Recorded What is the highest level of school you have completed or the highest degree you have received? 12th grade 06/09/2022 Sex and Gender Information Value Date Recorded Sex Assigned at Male 01/03/2018 1:26 PM CODING AND REIMBURSEMENT SPECIALIST Legal Sex Male 4:09 AM CODING AND REIMBURSEMENT SPECIALIST Gender Identity Not on file Sexual Orientation Straight 01/03/2018 1: 26 PM CODING AND REIMBURSEMENT SPECIALIST Last Filed Vital Signs Vital Sign Reading [...] st Contact Info) Description 01/08/2025 11:30 AM CODING AND REIMBURSEMENT SPECIALIST Nurse Only Department of Urology in [place], [place] [address] [place] [phone] 02/08/2025 11:00 AM CODING AND REIMBURSEMENT SPECIALIST Appointment Department of Radiology in [place], [place] [address], [place] [phone] Kennedi Dan APRN, C.N.P. [address] [phone] 02/08/2025 12:00 PM CODING AND REIMBURSEMENT SPECIALIST Appointment Department of Radiology in [place], [place] [address] [place] [address] Kennedi Dan APRN, C.N.P. [address] [address] 02/12/2025 11:00 AM CODING AND REIMBURSEMENT SPECIALIST Office Visit Department of Urology in [place], [place] [address] [place] [address] Kennedi Dan APRN, C.N.P. [address] [place] [address] Health Maintenance Due Date Last [...] this topic Medical Devices Implanted Type Area Dusting And Brushing Machine Operator Device Identifier Shelf Expiration Date Model / Serial / Lot Infuse Bmp Xxsmall - [id number] [id number] Implanted:Qty: 1 on 10/26/2016 Bone or Tissue Other/Legacy - See Implant Description Other/Legacy - See Implant Description Description:Device Manufactu rer - [employer]ane[employer]. Body Location - Other. arthrodesis. Device Status Text - [id number]. Stimublast Dbm Gel 5cc - Rosado [id number] Implanted:Qty: 1 on 10/26/2016 Bone or Tissue Other/Legacy - See Implant Description Arthrex Description:Device Manufactu rer - Arthrex. Body Location - Other. arthrodesis. Device Status Text - [id number]. Stnt Synergy Art Rx3.5x16 - [id number] Implanted:Qty: 1 on 03/06/2018 by Farheen Branch M.D. at [facility] Cardiac Stent N/A: Coronary [employer] 12/07/2019 [id number] / / [id number] Description:pRCA Simmetry Screw 12.5mm X 80 - Rosado [id number] Implanted:Qty: 1 on 10/26/2016 Hardware e.g. pins/screws /rods Other/Legacy - See Implant Description [employer] Description:Device Manufactu rer - [employer] Body Location - Other. Right. Device Status Text - [id number]. Simmetry Washer 12.5mm - Rosado [id number] Implanted:Qty: 1 on 10/26/2016 Hardware e.g. pins/screws /rods Other/Legacy - See Implant Description [employer] Technology Description:Device Manufactu rer - [employer]. Body Location - Other. Right. Device Status Text - [id number]. Conversions - Default Historical Implant Device Implanted:10/26 (Quantity not on file) Misc Other Abdomen Description:Body Location - Abdominal. Device Status Text - MiscOther. mesh from hernia repair. Ocular Lens Ocular Lens Bilateral: Eye Procedures Procedure Name Priority Date/Time Associated Diagnosis Comments BLADDER CATHETERIZATION Routine 12/11/2024 2:30 PM CODING AND REIMBURSEMENT SPECIALIST Retention Urinary PET CT SKULL TO THIGH [...] Results * Bladder Catheterization (12/11/2024 2:30 PM CODING AND REIMBURSEMENT SPECIALIST) Narrative MMODAL - 12/11/2024 2:30 PM CODING AND REIMBURSEMENT SPECIALIST Cata Taylor R.N. 12/11/2024 2:31 PM Bladder [...] AND OR PELVIS IV contrast 11/02/2024. COMPARISON: [place] CT urogram 09/09/2022. FINDINGS: Radiation seeds in [...] OUTSIDE CT ABDOMEN AND OR PELVIS IV evaxqfuw58/26/2025. COMPARISON: [place] CT urogram 09/09/2022. FINDINGS: Radiation seeds in [...] the abdomen or pelvis. Nathalie Hwang M.D. [facility] [place] PROCEDURES Final Re sult * Bladder Catheterization (11/07/2024 1:30 PM CDT) Narrative MMODAL - 11/07/2024 1:30 PM CDT Sophia Gaspar, R.N. 11/09/2024 10:04 AM Bladder Catheterization Performed by: Sophia Gaspar RHermes. Authorized by: Kennedi Dna APRN, C.N.P. PROCEDURE DETAILS Catheter insertion: suprapubic [...] 10:3 0 AM CDT Addenda Addendum by [employer], Outside on 11/04/2024 10:30 AM CDT BELOW REPORT RECEIVED BY [facility] ON 11/28/2024 11:15:12 [id number] For Patients: As a result of the [...] Hitesh Thomas RELEASED BY MAHIN Addendum by [employer], Outside on 11/04/2024 10:30 AM CDT BELOW REPORT RECEIVED BY [facility] ON 11/28/2024 11:14:22 [id number] For Patients: As a result of the [...] READ BY Hitesh Thomas RELEASED BY MAHIN 2nd Watch IMAGING - 11/28/2024 11:27 AM CDT This [...] ADD-ON Final Re sult Performing Organization Address City/[facility] Co de Phone Number [facility] [address] [place] [address], [facility] [place] [address] [place] [address] * (ABNORMAL) Basic Metabolic Panel (07/31/2019 2:08 [...] the 2009 CKD_EPI creatinine equation. eGFR-Black/Afric an Peruvian 66 >=60 mL/min/BSA 07/31/2019 3:18 PM CDT [...] M.D. 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 See document viewer. * Full Code (Latest Code Status on File) Date Activated Date Inactivated Comments 03/06/2018 2:36 PM 03/06/2018 9:26 PM Question Answer Comments Full Code: Not Discussed Due to: Patient not available Care Teams Line Construction Supervisor Relationship Specialty Start Date End Date Elsewhere, Pcp PCP - General Family Medicine 06/08/22
--- OUTSIDE RECORDS SUMMARY | 2025-01-01 10:11 | XMS_ITS | Clinical Summary ---
Author Organization [facility] Address [address] [place] [id number] Care Team Providers Care Bow Maker Machine Tender Name Role Phone Vira Green Unavailable [phone] Lee Broderick MD Primary Care Provider Allergies Active Allergy Reactions Criticality Noted Date Comments Codeine Headache Low 04/28/2020 Other reaction(s): mild Medications Walker with Wheels For home use. 1 Device 0 06/16/19 13 2024 Discontinued (Pharmacist change per medication history (E-cancel not sent)) nitroglycerin (NITROSTAT) 0.4 mg sublingual tabletIndicatio ns:PATEL (dyspnea on exertion) Place 1 Tablet (0.4 mg) under the tongue every 5 minutes if needed for Chest Pain. 30 Tablet 2 08/02/19 24 Suspended magnesium oxide (MAG-OX 400) 400 mg tabletIndicatio ns:Cramps, extremity Take 1 Tablet (400 mg) by mouth once daily. 30 Tablet 1 12/08/19 24 2024 Discontinued (Pharmacist change per medication history (E-cancel not sent)) atorvastatin (LIPITOR) 40 mg tabletIndicatio ns:Hyperlipidem ia with target LDL less than 100 Take 1 Tablet (40 mg) by mouth at bedtime. 90 Tablet 3 10/03/19 25 Suspended albuterol HFA (PRO-AIR; VENTOLIN; PROVENTIL) 90 mcg/actuation inhalerIndicati ons:SOB (shortness of breath) Inhale 1-2 Puffs by mouth every 4 hours if needed for Shortness Of Breath or Wheezing. 1 Each 1 10/03/19 Suspended losartan (COZAAR) 50 mg tabletIndicatio ns:Essential hypertension Take 1 Tablet (50 mg) by mouth once daily. 90 Tablet 3 10/03/19 25 Suspended metoprolol succinate (TOPROL XL) 25 mg Sustained-Relea se tabletIndicatio ns:Essential hypertension Take 1 Tablet (25 mg) by mouth once daily. 90 Tablet 3 10/03/19 25 Suspended triamterene-hyd rochlorothiazid e (37.5-25 mg) (DYAZIDE) 37.5-25 mg capsuleIndicati ons:Essential hypertension Take 1 Capsule by mouth once daily in the morning. 90 Capsule 3 10/03/192024 Discontinued (*Med complete/Reg imen complete/Lev el of care change) warfarin (COUMADIN) 2 mg tabletIndicatio ns:Paroxysmal A-fib (HC),Anticoagul ation monitoring, INR range 2-3 Take by mouth 2 mg (2 mg x 1) every Mon, Christelle; 4 mg (2 mg x 2) all other days in the evening OR as directed 160 Tablet 11/06/19 25 2024 Discontinued (Reorder (E-cancel not sent)) warfarin (COUMADIN) 2 mg tabletIndicatio ns:Paroxysmal A-fib (HC),Anticoagul ation monitoring, INR range 2-3 Take by mouth 2 mg (2 mg x 1) every Mon; 4 mg (2 mg x 2) all other days in the evening OR as directed 12/13/19 25 2024 Discontinued (Other - add note to specify (E-cancel not sent)) polyethylene glycol-electrol yte (iGrow - Dein Lernprogramm im LebenYTELY) 236-22.74-6.74 -5.86 gram suspensionIndic ations:Colonic mass Drink up to 6 liters (one bottle and one-half bottle) the day before the procedure (until stools are clear yellow or stab setter and driller) and 2 liters (half of bottle) 6 hours prior to procedure. 8000 mL 12/21/19 Suspended warfarin (COUMADIN) 2 mg tabletIndicatio ns:Paroxysmal A-fib (HC),Anticoagul ation monitoring, INR range 2-3 Take by mouth 01/06: Hold; 01/07: Hold; 01/08: Hold; 01/09: Hold; 01/10: Hold; Otherwise 2 mg every Mon; 4 mg all other days in the evening OR as directed 12/27/19 Suspended acetaminophen (TYLENOL EXTRA STRGTH) 500 mg tablet Take 1,000 mg by mouth at bedtime. Max acetaminophen dose: 4000mg in 24 hrs. Suspended Active Problems Problem Noted Date Diagnosed Date Acute on chronic intracranial subdural hematoma 01/01/2025 Acute on chronic intracranial subdural hematoma 12/31/24 12/31/2024 Stress due to illness of family member Chronic respiratory failure with hypoxia 025 Pulmonary nodule, right apical 1.1 cm 12/11/23 Hypoxia 12/06/2023 Suprapubic catheter placed 08/25/23 [place] 09/02/19 Prostate cancer 02/21/2023 Asbestosis 07/22/2021 Chronic obstructive pulmonary disease 06/09/2021 Restrictive lung disease 06/09/2021 CAD in belkofski artery: JANEY to RCA 2019. 2 Anticoagulation monitoring, INR range 2-3 2020 [...] patient. Now with recurrence - transferred from [place] due to failure to resolve Diverticulosis of colon (dani costa mention of hemorrhage) 05/29/2006 07/29/2020 HX OF DVT 05/29/2006 07/29/2020 Overview (10/20/2007): 10 yrs ago, s/p leg injury Emphysematous bleb 9 Dyspepsia and other specifie d disorders of function of stomach 07/29/2020 Nocturia 07/29/2020 Encounters Date Type Department Care Team Description 12/31/2024 10:44 PM PRODUCTION SUPPORT SUPERVISOR - Present Hospital Encounter [facility] [address] [place] [address] José Miguel Tom MD Malik, Muhammad Ibrahim, MD 12/31/2024 4:30 PM PRODUCTION SUPPORT SUPERVISOR Ancillary Procedure [facility] [address] [place] [address] Arrived 12/31/2024 3:45 PM PRODUCTION SUPPORT SUPERVISOR Office Visit [facility] [address] [place] [address] Lee Broderick MD Preoperative Exam (DOS: 01/11/2025, colonoscopy, Dr. Leone. [facility]) 12/31/2024 3:30 PM PRODUCTION SUPPORT SUPERVISOR Ancillary Procedure [facility] [address] [place] [address] Arrived 12/31/2024 Telephone [facility] [address] [place] [address] Lee Broderick MD Anticoagulation 12/31/2024 Travel 12/26/2024 10:30 AM PRODUCTION SUPPORT SUPERVISOR Orders Only [facility] [address] [place] [address] [facility] 12/26/2024 Telephone [facility] [address] [place] [address] Lee Broderick MD Anticoagulation (Hold-Procedure) 12/26/2024 Anticoagulation (warfarin) [facility] [address] [place] [address] Nurse, [facility] Anticoag Anticoagulation 12/26/2024 Travel 12/18/2024 Telephone [facility] [address] [place] [address] Vini Leone MD Screening 12/17/2024 Telephone [facility] [address] [place] [address] Lee Broderick MD Referral ([place] PET scan findings said he needs a biopsy) 12/12/2024 1:45 PM PRODUCTION SUPPORT SUPERVISOR Orders Only [facility] [address] [place] [address] [facility] 12/12/2024 Anticoagulation (warfarin) [facility] [address] [place] [address] Nurse, [facility] Anticoag Anticoagulation (lab) 12/12/2024 Travel 11/28/2024 Telephone [facility] [address] [place] [address] Lee Broderick MD Imaging (Requesting images ) 11/21/2024 3:00 PM CDT Orders Only [facility] [address] [place] [address] [facility] 11/21/2024 Anticoagulation (warfarin) [facility] [address] [facility] [place] [address] Nurse, [facility] Anticoag Anticoagulation 11/21/2024 Travel 11/13/2024 Telephone [facility] [address] [place] [address] Lee Broderick MD Appointment (Appointment Denied with J92.9 (ICD-10-CM) - Pleural thickening by Lee Broderick MD/) 11/04/2024 Orders Only [address] [address] Lee Broderick MD <No scans attached> 11/04/[address] [address] Lee Broderick MD Refill Request (Warfarin) 11/02/2024 11:30 AM CDT Ancillary Procedure [address] [address] 11/02/2024 10:55 AM CDT Office Visit [address] [address] Lee Broderick MD Weight (Unintentional weight loss); Fatigue (Weakness) 11/02/2024 Travel 10/24/2024 11:15 AM CDT Orders Only [address] [address] [facility] 10/24/2024 Nurse Triage [address] [address] Lee Broderick MD Weight 10/24/2024 Anticoagulation (warfarin) [address] [address] Nurse, [facility] Anticoag Anticoagulation 10/24/2024 Travel 10/24/[address] [address] Lee Broderick MD symptoms 10/02/2024 2:55 PM CDT Office Visit [facility] [address] [place], [place] [id number] Lee Broderick MD Medicare ANNUAL (subsequent) Visit [...] or isolated from those around you? 0 01/01/2025 Alcohol Use Answer Date Recorded How often [...] you are able to buy more? 1 01/01/2025 Transportation Needs Answer Date Record ed Does lack of transportation keep you from medica l appointments? 1 01/01/2025 Does lack of transportation keep you from work, meetings or getting things that you need? 1 01/01/2025 Housing Stability Answer Date Recorded What is your housing situation today? 1 01/01/2025 Interpersonal Safety Answer Date Record ed Are you being hit, kicked, p ushed or yelled at (see row info)? No 12/06/2023 Interpersonal Safety Abuse 12 - 18 Not on file 12/06/2023 Interpersonal Safety Ambulatory Vulnerability No t on file 12/06/2023 Utilities Answer Date Recorded Do you have trouble paying f or utilities (for example, heat, electricity, water, phone)? 1 01/01/2025 Sex and Gender Information Value Date Recorded Sex Assigned at Not on file Legal Sex Male 6:14 AM PRODUCTION SUPPORT SUPERVISOR Gender Identity Not on file Sexual Orientation Not on file Occupation Industry Job Start Date Job End Date Not on file Not on file Not on file Not on file Obstetrics History Last Filed Vital Signs Vital Sign Reading Time Taken Comments Blood Pressure 120/56 01/01/2025 9:00 AM PRODUCTION SUPPORT SUPERVISOR Pulse 66 01/01/2025 9:15 AM PRODUCTION SUPPORT SUPERVISOR Temperature 36.8 C (98.2 F) 01/01/2025 8:00 AM PRODUCTION SUPPORT SUPERVISOR Respiratory Rate 18 01/01/2025 8:00 AM PRODUCTION SUPPORT SUPERVISOR Oxygen Saturation 97% 01/01/2025 9:15 AM PRODUCTION SUPPORT SUPERVISOR Inhaled Oxygen Concentration - - Weight 79.4 kg (175 lb 0.7 oz) 12/31/2024 10:45 PM PRODUCTION SUPPORT SUPERVISOR Height 176.7 cm (5' 9.57) 12/31/2024 10:[address] Body Mass Index 25.43 12/31/2024 10:45 PM PRODUCTION SUPPORT SUPERVISOR Plan of Treatment Upcoming Encounters Date Type Department Care Team (Late st Contact Info) Description 01/08/2025 1:40 PM PRODUCTION SUPPORT SUPERVISOR Office Visit [facility] [address] [place] [place] [address] Lee Broderick MD [address] [place] [address] 01/21/2025 8:30 AM PRODUCTION SUPPORT SUPERVISOR Orders Only [facility] [address] [place] [address] [facility] Maintenance Due Date Last Done Comments Tetanus booster 06/14/2023 06/13/2013, 04/0 07/2008, 01/28/1995 Depression screening for age 12+ [...] this topic Medical Devices Implanted Type Area Cargo Mate Device Identifier Shelf Expiration Date Model / Serial / Lot Mesh Prolene Hernia Extended System - [id number] Implanted:Qty: 1 on 10/21/[address] [facility] General Surgery Implants Right: Abdomen [employer] (SUTURE) PHSE# / / [id number] Procedures * The patient is currently admitted. The information in this section might not be complete until the patient is discharged. Procedure Name Priority Date/Time Associated Diagnosis Comments PHOSPHORUS SIOBHAN 01/01/2025 4:56 AM PRODUCTION SUPPORT SUPERVISOR MAGNESIUM SIOBHAN 01/01/2025 4:56 AM PRODUCTION SUPPORT SUPERVISOR PROTIME-INR Early AM 01/01/2025 4:56 AM PRODUCTION SUPPORT SUPERVISOR BASIC METABOLIC PANEL Early AM 01/01/2025 4:56 AM PRODUCTION SUPPORT SUPERVISOR CBC W PLT NO DIFF Early AM 01/01/2025 4:5 6 AM PRODUCTION SUPPORT SUPERVISOR SCAN-CARDIAC STRIP 01/01/2025 12 :40 AM PR[address] SUPPORT SU[address] CT HEAD BRAIN WO Timed 12/31/2024 11:3 4 PM PRODUCTION SUPPORT SUPERVISOR TYPE & SCREEN Today 12/31/2024 11:12 PM PRODUCTION SUPPORT SUPERVISOR CBC WITH AUTO DIFFERENTIAL STAT 12/31/2024 11:12 PM PRODUCTION SUPPORT SUPERVISOR FIBRINOGEN,QUANTITATI VE STAT 12/31/2024 11:12 PM PRODUCTION SUPPORT SUPERVISOR BLOOD GAS,VENOUS STAT 12/31/2024 11:1 2 PM PRODUCTION SUPPORT SUPERVISOR PROTIME-INR STAT 12/31/2024 11:12 PM PRODUCTION SUPPORT SUPERVISOR CALCIUM IONIZED HOSPITAL DRAW ONLY STAT 12/31/2024 11:12 PM PRODUCTION SUPPORT SUPERVISOR PHOSPHORUS STAT 12/31/2024 11:12 PM PRODUCTION SUPPORT SUPERVISOR MAGNESIUM STAT 12/31/2024 11:12 PM PRODUCTION SUPPORT SUPERVISOR CBC WITH AUTO DIFFERENTIAL STAT 12/31/2024 11:12 PM PRODUCTION SUPPORT SUPERVISOR BASIC METABOLIC PANEL STAT 12/31/2024 11:12 PM PRODUCTION SUPPORT SUPERVISOR EKG 12 LEAD STAT 12/31/2024 10:58 PM PRODUCTION SUPPORT SUPERVISOR CBC WITH AUTO DIFFERENTIAL Routine 12/31/2024 4:49 PM PRODUCTION SUPPORT SUPERVISOR SOB (shortness of breath) BASIC METABOLIC PANEL Routine 12/31/2024 4:49 PM PRODUCTION SUPPORT SUPERVISOR SOB (shortness of breath) CBC WITH AUTO DIFFERENTIAL Routine 12/31/2024 4:49 PM PRODUCTION SUPPORT SUPERVISOR SOB (shortness of breath) PROTIME-INR Routine 12/31/2024 4:49 PM PRODUCTION SUPPORT SUPERVISOR Paroxysmal A-fib (HC) Anticoagulation monitoring, INR range 2-3 CT HEAD BRAIN WO STAT 12/31/2024 4:41 PM PRODUCTION SUPPORT SUPERVISOR Headache syndrome INR,POCT Routine 12/26/2024 12:08 PM PRODUCTION SUPPORT SUPERVISOR Paroxysmal A-fib (HC) Anticoagulation monitoring, INR range 2-3 INR,POCT Routine 12/12/2024 1:47 PM PRODUCTION SUPPORT SUPERVISOR Paroxysmal A-fib (HC) Anticoagulation monitoring, INR [...] 100 from Last 3 Months Results * CBC W PLT NO DIFF (01/01/2025 4:56 AM PRODUCTION SUPPORT SUPERVISOR) WHITE BLOOD COUNT 7.7 4.5 - 11.0 thou/cu mm 01/01/2025 5:17 AM PRODUCTION SUPPORT SUPERVISOR [facility] RED BLOOD COUNT 4.46 4.30 - 5.90 mil/cu mm 01/01/2025 5:17 AM [facility] HEMOGLOBIN 14.3 13.5 - 17.5 g/dL 01/01/2025 5:17 AM [facility] HEMATOCRIT 42.3 37.0 - 53.0 % 01/01/2025 5:17 AM PRODUCTION SUPPORT SUPERVISOR [facility] MCV 95 80 - 100 fL 01/01/2025 5:17 AM [facility] MCH 32.1 26.0 - 34.0 pg 01/01/2025 5:17 AM [facility] MCHC 33.8 32.0 - 36.0 g/dL 01/01/2025 5:17 AM [facility] RDW 12.1 11.5 - 15.5 % 01/01/2025 5:17 AM [facility] PLATELET COUNT 164 140 - 440 thou/cu mm 01/01/2025 5:17 AM [facility] MPV 10.5 6.5 - 11.0 fL 01/01/2025 5:17 AM [facility] NRBC 0.0 % 01/01/2025 5:17 AM [facility] ABS NRBC 0.0 thou /cu mm 01/01/2025 5:17 AM [facility] Blood BLOOD SPECIMEN / Unknown Venipuncture / Unknown 01/01/2025 4:56 AM PRODUCTION SUPPORT SUPERVISOR 01/01/2025 5:10 AM PRODUCTION SUPPORT SUPERVISOR us José Miguelemir Tom MD HEMATOLOGY Keri l Result [facility] [address] [place] [address], * (ABNORMAL) PROTIME-INR (01/01/2025 4:56 AM PRODUCTION SUPPORT SUPERVISOR) Only the most recent of3 resultswithin the time period is included. INR 1.2 <1.3 01/01/2025 5:24 AM PRODUCTION SUPPORT SUPERVISOR [facility] PROTIME 13.2(H) 10.6 - 12.4 sec 01/01/2025 5:24 AM PRODUCTION SUPPORT SUPERVISOR [facility] Blood BLOOD SPECIMEN / Unknown Venipuncture / Unknown 01/01/2025 4:56 AM PRODUCTION SUPPORT SUPERVISOR 01/01/2025 5:10 AM PRODUCTION SUPPORT SUPERVISOR Narrative [facility] - 01/01/2025 5:24 AM PRODUCTION SUPPORT SUPERVISOR Therapeutic Range 2.0-3.0 for most anticoagulated [...] seconds if the patient is on UFH. José Miguel Tom MD HEMATOLOGY Keri l Result Performing Organization Address [facility] Co de Phone Number [facility] [address] [place] [address], [place] * PHOSPHORUS (01/01/2025 4:56 AM PRODUCTION SUPPORT SUPERVISOR) Only the most recent of2 resultswithin the time period is included. PHOSPHORUS 2.8 2.5 - 4.5 mg/dL 01/01/2025 6:00 AM PRODUCTION SUPPORT SUPERVISOR [facility] Blood BLOOD SPECIMEN / Unknown Venipuncture / Unknown 01/01/2025 4:56 AM PRODUCTION SUPPORT SUPERVISOR 01/01/2025 5:11 AM PRODUCTION SUPPORT SUPERVISOR Indio Gunn MD CHEMISTRY Fin al Result Performing Organization Address [facility] Co de Phone Number [facility] [address] [place] [address], [place] * MAGNESIUM (01/01/2025 4:56 AM PRODUCTION SUPPORT SUPERVISOR) Only the most recent of2 resultswithin the time period is included. MAGNESIUM 1.9 1.6 - 2.4 mg/dL 01/01/2025 5:59 AM [facility] Blood BLOOD SPECIMEN / Unknown Venipuncture / Unknown 01/01/2025 4:56 AM PRODUCTION SUPPORT SUPERVISOR 01/01/2025 5:11 AM PRODUCTION SUPPORT SUPERVISOR us Indio Gunn MD CHEMISTRY Fin al Result [facility] [address] [place] [address], * (ABNORMAL) BASIC METABOLIC PANEL (01/01/2025 4:56 AM PRODUCTION SUPPORT SUPERVISOR) Only the most recent of4 resultswithin the time period is included. SODIUM 139 136 - 145 mmol/L 01/01/2025 5:36 AM [facility] POTASSIUM 3.6 3.5 - 5.1 mmol/L 01/01/2025 5:36 AM [facility] CHLORIDE 101 98 - 107 mmol/L 01/01/2025 5:36 AM [facility] CO2,TOTAL 30(H) 22 - 29 mmol/L 01/01/2025 5:36 AM [facility] ANION GAP 8 5 - 18 01/01/2025 5:36 AM [facility] GLUCOSE 82 70 - 99 mg/dL 01/01/2025 5:36 AM [facility] CALCIUM 9.1 8.8 - 10.4 mg/dL 01/01/2025 5:36 AM [facility] Comment: Reference ranges for this test were updated on 12/13/2023 to reflect our healthy population more accurately. Reference range changes are not retroactively applied to results, but previous results using the same methodology can be interpreted in the context of the new reference range. BUN 25(H) 8 - 23 mg/dL 01/01/2025 5:36 AM [facility] CREATININE 0.97 0.70 - 1.20 mg/dL 01/01/2025 5:36 AM [facility] BUN/CREAT RATIO 26(H) 10 - 20 5:36 AM PRODUCTION SUPPORT SUPERVISOR [facility] eGFR 75(L) >90 mL/min/1.7 3m2 01/01/2025 5:36 AM PRODUCTION SUPPORT SUPERVISOR [facility] Comment:As of 2021, eG FR is calculated by the CKD-EPI creatinine equation without race adjustment. eGFR can be influenced by muscle mass, exercise, and diet. The reported eGFR is an estimation only and is only applicable if the renal function is stable. Blood BLOOD SPECIMEN / Unknown Venipuncture / Unknown 01/01/2025 4:56 AM PRODUCTION SUPPORT SUPERVISOR 01/01/2025 5:11 AM PRODUCTION SUPPORT SUPERVISOR us José Miguel Tom MD CHEMISTRY Keri l Result [facility] [address] [place] [address], [place] * SCAN-CARDIAC STRIP (01/01/2025 12:40 AM PRODUCTION SUPPORT SUPERVISOR) us Scanner OTHER Final Result * CT Head WO Contrast - [address] (12/31/2024 11:34 PM PRODUCTION SUPPORT SUPERVISOR) Only the most recent of2 resultswithin the time period is included. Anatomical Region Laterality Modality HEAD, BRAIN Computed Tomogra phy 01/01/2025 1:33 AM PRODUCTION SUPPORT SUPERVISOR Narrative 01/01/2025 1:33 AM PRODUCTION SUPPORT SUPERVISOR For Patients: As a result of the Century Cures Act, medical imaging exams and procedure reports are released immediately into your electronic medical record. You may view this report before your referring provider. If you have questions, please contact your health care provider. Indication: Follow-up subdural hemorrhage Technique: Noncontrast CT through the head with multiplanar reformats Comparison: CT head performed same day Findings: Unchanged 2.1 centimeter right convexity subdural hematoma. Unchanged 1.5 centimeter right convexity subdural hematoma. Unchanged 3 millimeters of leftward shift. No new or worsening hemorrhage, mass effect, or herniation is appreciated. No acute transcortical infarct. Unchanged chronic senescent disease. Orbits, sinuses, and mastoid air cells are unremarkable. Calvarium is unchanged. Impression: No significant interval change. Nuegf-oioiamh-ztlk-left bilateral subdural hematomas with mild leftward shift is similar in appearance to prior examination with no new or enlarging hemorrhage or worsening mass effect/herniation. Please note that all CT scans at this facility use dose modulation, iterative reconstruction, and/or weight-based dosing when appropriate to reduce radiation dose to as low as reasonably achievable. Dictated by Rashi Faria MD @ 01/01/2025 1:33:45 AM (Electronically Signed) Procedure Note Rashi Faria MD - 01/01/2025 For Patients: As a result of the Cures Act, medical imagingexams and procedure reports are released immediately into your electronicmedical record. You may view this report before your referring provider.If you have questions, please contact your health care provider. Indication: Follow-up subdural hemorrhage Technique: Noncontrast CT through the head with multiplanar reformats Comparison: CT head performed same day Findings: Unchanged 2.1 centimeter right convexity subdural hematoma. Unchanged 1.5centimeter right convexity subdural hematoma. Unchanged 3 millimeters ofleftward shift. No new or worsening hemorrhage, mass effect, or herniationis appreciated. No acute transcortical infarct. Unchanged chronicsenescent disease. Orbits, sinuses, and mastoid air cells areunremarkable. Calvarium is unchanged. Impression: No significant interval change. Nejad-xpqdgno-aopg-left bilateral subduralhematomas with mild leftward shift is similar in appearance to priorexamination with no new or enlarging hemorrhage or worsening masseffect/herniation. Please note that all CT scans at this facility use dose modulation,iterative reconstruction, and/or weight-based dosing when appropriate toreduce radiation dose to as low as reasonably achievable. Dictated by Rashi Faria MD @ 01/01/2025 1:33:45 AM (Electronically Signed) us José Miguel Tom MD CT Keri l Result * (ABNORMAL) CBC WITH AUTO DIFFERENTIAL (12/31/2024 11:12 PM PRODUCTION SUPPORT SUPERVISOR) Only the most recent of3 resultswithin the time period is included. [facility] WHITE BLOOD COUNT 9.4 4.5 - 11.0 thou/cu mm 12/31/2024 11:27 PM [facility] RED BLOOD COUNT 4.42 4.30 - 5.90 mil/cu mm 12/31/2024 11:27 PM [facility] HEMOGLOBIN 14.1 13.5 - 17.5 g/dL 12/31/2024 11:27 PM [facility] HEMATOCRIT 41.8 37.0 - 53.0 % 12/31/2024 11:27 PM [facility] MCV 95 80 - 100 fL 12/31/2024 11:27 PM [facility] MCH 31.9 26.0 - 34.0 pg 12/31/2024 11:27 PM [facility] MCHC 33.7 32.0 - 36.0 g/dL 12/31/2024 11:27 PM [facility] RDW 12.3 11.5 - 15.5 % 12/31/2024 11:27 PM [facility] PLATELET COUNT 163 140 - 440 thou/cu mm 12/31/2024 11:27 PM [facility] MPV 10.5 6.5 - 11.0 fL 12/31/2024 11:27 PM [facility] NRBC 0.0 % 12/31/2024 11:27 PM [facility] ABS NRBC 0.0 thou /cu mm 12/31/2024 11:27 PM [facility] % NEUT 64.2 % 12/31/2024 11:27 PM [facility] % LYMPH 19.8 % 12/31/2024 11:27 PM [facility] % MONO 13.2 % 12/31/2024 11:27 PM [facility] % EOS 2.1 % 12/31/2024 11:27 PM [facility] % BASO 0.4 % 12/31/2024 11:27 PM PRODUCTION SUPPORT SUPERVISOR [facility] % IMMATURE GRAN (METAS,MYELOS,ME OS) 0.3 % 12/31/2024 11:27 PM PRODUCTION SUPPORT SUPERVISOR [facility] ABSOLUTE NEUTROPHILS 6.0 1.7 - 7.0 thou/cu mm 12/31/2024 11:27 PM PRODUCTION SUPPORT SUPERVISOR [facility] ABSOLUTE LYMPHOCYTES 1.9 0.9 - 2.9 thou/cu mm 12/31/2024 11:27 PM PRODUCTION SUPPORT SUPERVISOR [facility] ABSOLUTE MONOCYTES 1.2(H) <0.9 thou/cu mm 12/31/2024 11:27 PM PRODUCTION SUPPORT SUPERVISOR [facility] ABSOLUTE EOSINOPHILS 0.2 <0.5 thou/cu mm 12/31/2024 11:27 PM PRODUCTION SUPPORT SUPERVISOR [facility] ABSOLUTE BASOPHILS 0.0 <0.3 thou/cu mm 12/31/2024 11:27 PM PRODUCTION SUPPORT SUPERVISOR [facility] [facility] ABSOLUTE IMMATURE GRANULOCYTES(MET ,MYELOS,PROS) 0.0 <0.3 thou/cu mm 12/31/2024 11:27 PM PRODUCTION SUPPORT SUPERVISOR [facility] LABORATORY Blood BLOOD SPECIMEN / Unknown Non-Lab Venipuncture / Unknown 12/31/2024 11:12 PM PRODUCTION SUPPORT SUPERVISOR 12/31/2024 11:23 PM PRODUCTION SUPPORT SUPERVISOR José Miguelemir Tom MD HEMATOLOGY Keri l Result [facility] [address] [place] [id number], * TYPE & SCREEN (12/31/2024 11:12 PM PRODUCTION SUPPORT SUPERVISOR) ABORH O Rh Negative 01/01/2025 12:02 AM PRODUCTION SUPPORT SUPERVISOR [facility] LAB BLOOD BANK ANTIBODY SCREEN Negative Negative 01/01/2025 12:02 AM [facility] LAB BLOOD BANK SPECIMEN EXPIRATION DATE/TIME 01/03/25 23:59 01/01/2025 12:02 AM PRODUCTION SUPPORT SUPERVISOR [facility] LAB BLOOD BANK Blood BLOOD SPECIMEN / Unknown Non-Lab Venipuncture / Unknown 12/31/2024 11:12 PM PRODUCTION SUPPORT SUPERVISOR 12/31/2024 11:23 PM PRODUCTION SUPPORT SUPERVISOR José Miguel Tom MD BLOOD BANK Keri l Result Performing Organization Address City/[facility]/ZIP Co de Phone Number [facility] LAB BLOOD BANK [address] [place] [address], * (ABNORMAL) BLOOD GAS,VENOUS (12/31/2024 11:12 PM PRODUCTION SUPPORT SUPERVISOR) PH, VENOUS 7.40 7.32 - 7.43 12/31/2024 11:32 PM PRODUCTION SUPPORT SUPERVISOR [facility] TRAL LABORATORY PCO2, VENOUS 55(H) 41 - 51 mmHg 12/31/2024 11:32 PM PRODUCTION SUPPORT SUPERVISOR [facility] PO2, VENOUS 29(L) 35 - 40 mmHg 12/31/2024 11:32 PM PRODUCTION SUPPORT SUPERVISOR [facility] HCO3,VENOUS 34(H) 22 - 29 mmol/L 12/31/2024 11:32 PM PRODUCTION SUPPORT SUPERVISOR [facility] LABORATORY BASE EXCESS, VENOUS, POCT 7.5(H) -2.0 - 3.0 12/31/2024 11:32 PM PRODUCTION SUPPORT SUPERVISOR [facility] O2 SATURATION, VENOUS 50(L) 70 - 75 % 12/31/2024 11:32 PM PRODUCTION SUPPORT SUPERVISOR [facility]AL LAB[facility]ORY PATIENT TEMPERATURE 37.0 Degrees C 12/31/2024 11:32 PM PRODUCTION SUPPORT SUPERVISOR [facility] TRA LABORATORY Blood VENOUS BLOOD SPECIMEN / Unknown Non-Lab Venipuncture / Unknown 12/31/2024 11:12 PM PRODUCTION SUPPORT SUPERVISOR 12/31/2024 11:23 PM PRODUCTION SUPPORT SUPERVISOR José Miguel Tom MD CHEMISTRY Keri l Result [facility] [address] [place] [address], * (ABNORMAL) FIBRINOGEN,QUANTITATIVE (12/31/2024 11:12 PM PRODUCTION SUPPORT SUPERVISOR) FIBRINOGEN,STARR NTITATIVE 425(H) 193 - 401 mg/dL 12/31/2024 11:36 PM PRODUCTION SUPPORT SUPERVISOR [facility] Blood BLOOD SPECIMEN / Unknown Non-Lab Venipuncture / Unknown 12/31/2024 11:12 PM PRODUCTION SUPPORT SUPERVISOR 12/31/2024 11:23 PM PRODUCTION SUPPORT SUPERVISOR José Miguel Tom MD HEMATOLOGY Keri l Result [facility] [address] [place] [address], [place] * CALCIUM IONIZED HOSPITAL DRAW ONLY (12/31/2024 11:12 PM PRODUCTION SUPPORT SUPERVISOR) Pathologist [facility] CALCIUM,IONIZE D 1.15 1.15 - 1.27 mmol/L 12/31/2024 11:36 PM PRODUCTION SUPPORT SUPERVISOR [facility] Blood BLOOD SPECIMEN / Unknown Non-Lab Venipuncture / Unknown 12/31/2024 11:12 PM PRODUCTION SUPPORT SUPERVISOR 12/31/2024 11:23 PM PRODUCTION SUPPORT SUPERVISOR José Miguel Tom MD CHEMISTRY Keri l Result Performing Organization Address City/[facility] Co de Phone Number [facility] [address] [place] [address], [place] * (ABNORMAL) INR - POCT [60117.2] - Standing Order (12/26/2024 12:08 PM PRODUCTION SUPPORT SUPERVISOR) Only the most recent of4 resultswithin the time period is included. INR 2.7(H) ratio 12/26/2024 12:19 PM PRODUCTION SUPPORT SUPERVISOR [facility] Comment: INRs >2.9 may be falsely elevated [...] 10.5 - 13.1 sec 12/26/2024 12:19 PM PRODUCTION SUPPORT SUPERVISOR [facility] Comment: Point of care fingerstick Prothrombin Time/INR results may vary from venous Prothrombin Time/INR methodologies. Any results exhibiting inconsistency with the patient's clinical status should be repeated using a venous Prothrombin Time/INR method. Blood BLOOD SPECIMEN / Unknown [facility] / Unknown 12/26/2024 12:08 PM PRODUCTION SUPPORT SUPERVISOR 12/26/2024 12:08 PM PRODUCTION SUPPORT SUPERVISOR Lee Broderick MD LABORATORY Final Result [facility] [address] [place] [address], [place] [phone] [facility] [address] [place] [address], [place] [phone] * CT CHEST ABDOMEN PELVIS W (11/02/2024 [...] of the 21st Century Cures Act, medical imagingexams and procedure [...] Lee Broderick MD CT Final Result * POCT Creatinine (11/02/2024 11:24 AM CDT) POCT,CREATININ E, ISTAT 1.1 0.6 - 1.3 mg/dL 11/02/2024 11:32 AM CDT [facility] Blood BLOOD SPECIMEN / Unknown [facility] / Unknown 11/02/2024 11:24 AM CDT 11/02/2024 11:24 AM CDT Lee Broderick MD CHEMISTRY Final Result [facility] [address] [place] [address], [place] [phone] [facility] [address] [place] [address], [place] [phone] * (ABNORMAL) HEPATIC FUNCTION PANEL (11/02/2024 11:24 [...] CDT Lee Broderick MD CHEMISTRY Final Result [facility] [address] [address], [place] [phone] * TSH WITH REFLEX (10/02/2024 3:10 PM CDT) TSH W/REFLEX TO FT4 1.13 0.40 - 4.50 mIU/L 10/03/2024 4:03 AM CDT [facility] Blood BLOOD SPECIMEN / Unknown [facility] / Unknown 10/02/2024 3:10 PM CDT 10/02/2024 3:10 PM CDT Lee Broderick MD CHEMISTRY Final Result Performing Organization Address City/[facility]/ZIP Co de Phone Number [facility] [address] [address], [place] [phone] * (ABNORMAL) LIPID PANEL W REFLEX MEASURED LDL (10/02/2024 3:10 PM CDT) CHOLESTEROL, TOTAL 98 <200 mg/dL 10/03/2024 3:24 AM CDT [facility] TRIGLYCERIDES 148 <150 mg/dL 10/03/2024 3:24 AM CDT [facility] HDL CHOLESTEROL 37(L) > OR = 40 mg/dL 10/03/2024 3:24 AM CDT [facility] NON HDL CHOLESTEROL 61 <130 mg/dL (calc) 10/03/2024 3:24 AM CDT [facility] Comment: For patients with diabetes plus 1 major ASCVD risk factor, treating to a non-HDL-C goal of <100 mg/dL (LDL-C of <70 mg/dL) is considered a therapeutic option. CHOL/HDLC RATIO 2.6 <5.0 (calc) 10/03/2024 3:24 AM CDT [facility] LDL-CHOLESTEROL 38 mg/dL (calc) 10/03/2024 3:24 AM CDT [facility] Comment: Reference range: <100 Desirable range <100 mg/dL for primary prevention; <70 mg/dL for patients with CHD or diabetic patients with > or = 2 CHD risk factors. LDL-C is now calculated using the Terrell calculation, which is a validated novel method providing better accuracy than the Friedewald equation in the estimation of LDL-C. Vini SS et al. VISHAL. 2013;310(48): 1551-9559 (http://education.LP Amina/faq/NDV342) Blood BLOOD SPECIMEN / Unknown [facility] / Unknown 10/02/2024 3:10 PM CDT 10/02/2024 3:10 PM CDT us Lee Broderick MD CHEMISTRY Final Result Performing Organization Address [place]/[facility] de Phone Number [facility] [address] [address], [place] [phone] * PSA TOTAL (10/02/2024 3:10 PM CDT) PSA, TOTAL 0.05 < OR = 4.00 ng/mL 10/03/2024 4:03 AM CDT [facility] Comment: The total PSA value from this assay system is standardized against the WHO standard. The test result will be approximately 20% lower when compared to the equimolar-standardized total PSA (Rebecca [place]). 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
--- OUTSIDE RECORDS SUMMARY | 2025-01-01 10:12 | XMS_ITS | Encounter Summary ---
Author Organization [facility] Address [address] [place] [address] Care Team Providers Care Tax Staff Accountant Name Role Phone Elsewhere, Pcp Primary Care Provider Unavailabl e Reason for Referral * Outpatient (Routine) - Closed Specialty Diagnoses / Procedures Referred By Alexander ridley Referred To Contact Pulmonary Medicine Diagnoses Restrictive Lung Disease Dyspnea On Exertion Abel Gomez M.D. Phone: tel: fax: [facility] Referral ID Status Reason Start Date Expiration Date Visits Re quested Visits Authorized [id number] Closed 11/09/2017 11/09/2018 1 1 Encounter Details Date Type Department Care Team (Late st Contact Info) Description 11/09/2017 [facility] [address] [place] [address] Abel Gomez M.D. [address] [phone] Restrictive Lung Disease (Primary Dx); Dyspnea On Exertion Social History Tobacco Use Types Packs/Day Years Used Date Smoking Tobacco: Former Sex and Gender Information Value Date Recorded Sex Assigned at Male 01/03/2018 1:26 PM DRAIN TECHNICIAN Legal Sex Male 4:09 AM DRAIN TECHNICIAN Gender Identity Not on file Sexual Orientation Straight 01/03/2018 1: 26 PM DRAIN TECHNICIAN documented as of this encounter Plan of Treatment Upcoming Encounters Date Type Department Care Team (Late st Contact Info) Description 01/08/2025 11:30 AM DRAIN TECHNICIAN Nurse Only Department of Urology in [place], [place] [address] [place] [phone] 02/08/2025 11:00 AM DRAIN TECHNICIAN Appointment Department of Radiology in [place], [place] [address] [place] [phone] Kennedi Dan APRN, C.N.P. [address] [phone] 02/08/2025 12:00 PM DRAIN TECHNICIAN Appointment Department of Radiology in [place], [place] [address] [place] [phone] Kennedi Dan APRN, C.N.P. [address] [phone] 02/12/2025 11:00 AM DRAIN TECHNICIAN Office Visit Department of Urology in [address] [phone] Kennedi Dan APRN, C.N.P. [address] [place] [phone] Scheduled Referrals Name Type Priority Associated Diagnoses Orde r Schedule Pulmonary Medicine Referral Outpatient Referral Routine Restrictive Lung Disease Dyspnea On Exertion Expected: 11/09/2017 (Approximate), Expires: 11/09/2020 documented as of this encounter Visit Diagnoses Diagnosis Restrictive Lung Disease- Primary Dyspnea On Exertion documented in this encounter Care Teams Tax Staff Accountant Relationship Specialty Start Date End Date Elsewhere, Pcp PCP - General Family Medicine 06/08/22 documented as of this encounter
== END 2024-12-31 22:03 | disposition short-term general hospital (02) ==
PROVIDERS: Emergency Provider Family Medicine; PCP Family Medicine
DX: I62.01 Nontraumatic acute subdural hemorrhage (principal); I62.03 Nontraumatic chronic subdural hemorrhage; Z79.01 Long term (current) use of anticoagulants
CPT/HCPCS: 36415; 80048; 85025; 85610; 85730; 93005; 96365; 96375; 96376; 99284; 99285; J7165; J3430

== ENCOUNTER 2024-12-31 21:47 | Outpatient (CLI) | payer MEDICARE, BC, SELFPAY | END 2024-12-31 21:48 | disposition home or self-care (01) | LOC: AMB 01-07 15:19 | PROVIDERS: PCP Family Medicine; Visit Provider Family Medicine | DX: I62.01 Nontraumatic acute subdural hemorrhage (principal) | CPT/HCPCS: A0425; A0428 ==